=== PATIENT | male | born 1965 | race Caucasian/White ===

== ENCOUNTER 2017-02-04 08:02 | Day surgery (SDC) | payer MEDICARE, MEDICAID ==
[2017-01-22 10:50] LABS: ABSOLUTE EOSINOPHILS # (AUTO) 0.1 10^3/uL (0.0-0.6); ABSOLUTE LYMPHOCYTES (AUTO) 1.8 10^3/uL (0.5-4.7); ABSOLUTE MONOCYTES (AUTO) 0.4 10^3/uL (0.1-1.4); ABSOLUTE NEUT (AUTO) 4.6 10^3/uL (1.7-8.2); BASOPHILS % (AUTO) 0.6 % (0-2); EOSINOPHILS % (AUTO) 2.1 % (0-6); HEMATOCRIT 50.4 % (37.9-51.0); HEMOGLOBIN 16.2 g/dL (13.5-17.0); HGB HCT DIFFERENCE -1.8; LYMPHOCYTES % (AUTO) 25.9 % (13-45); MEAN CORPUSCULAR HEMOGLOBIN 32.4 pg (27.0-33.4); MEAN CORPUSCULAR HGB CONC 32.2 g/dL (32.0-36.0); MEAN CORPUSCULAR VOLUME 101 fl (80-97); MONOCYTES % (AUTO) 5.2 % (3-13); RED BLOOD COUNT 5.01 10^6/uL (4.35-5.55); SEGMENTED NEUTROPHILS % (AUTO) 66.2 % (42-78); WHITE BLOOD COUNT 6.9 10^3/uL (4.0-10.5)
[2017-01-22 10:56] LABS: PARTIAL THROMBOPLASTIN TIME 25.7 SEC (23.5-35.8); PROTHROMBIN TIME 12.1 SEC (11.4-15.4)
[2017-01-22 11:17] LABS: ANION GAP 10 (5-19); BLOOD UREA NITROGEN 19 mg/dL (7-20); CALCIUM 9.6 mg/dL (8.4-10.2); CARBON DIOXIDE 30 mmol/L (22-30); CHLORIDE 102 mmol/L (98-107); CREATININE RESULT 0.91 mg/dL (0.52-1.25); GLUCOSE 134 mg/dL (75-110); POTASSIUM 4.8 mmol/L (3.6-5.0)
--- NOTE | 2017-01-22 12:58 | EKG REPORT ---
SEVERITY:- ABNORMAL ECG - BASELINE ARTIFACTS SINUS RHYTHM RIGHT AXIS DEVIATION : Confirmed by: Guillermo Pham MD 22-Jan-2017 12:57:23
[~2017-02-04 08:02] MED LIST: DOXYCYCLINE HYCLATE 100 MG in DEXTROSE 5%-WATER 250 ML IV PRN; LIDOCAINE 0.5% INJ-PF (5 MG/ML) 50 ML SDV SUBCUT PRN; LIDOCAINE 4% INJ/PF (40 MG/ML) 5 ML AMPUL INJ PRN; RINGERS SOLUTION,LACTATED 1,000 ML IV PRN
[2017-02-04] MEDS ORDERED: LIDOCAINE 1%/EPINEPHRINE INJ 20 ML VIAL ONE (08:29)
[2017-02-04] MEDS ORDERED: SODIUM BICARBONATE 8.4% INJ 50 MEQ/50 ML DISP.SYRIN ONE (08:35)
[2017-02-04] MEDS ORDERED: FENTANYL CITRATE INJ/PF 100 MCG/2 ML AMPUL ONE ×2 (09:38)
[2017-02-04] MEDS ORDERED: ACETAMINOPHEN 100 ML IV ONE (09:39)
[2017-02-04] MEDS ORDERED: MIDAZOLAM 2 MG/2 ML INJ ONE (09:39)
[2017-02-04] MEDS ORDERED: PROPOFOL INJ 200 MG/20 ML VIAL IV ONE (09:39)
[2017-02-04] MEDS ORDERED: MORPHINE SULFATE 10 MG/ML INJ IV PRN (10:11)
[2017-02-04] MEDS ORDERED: PROMETHAZINE HCL INJ 25 MG/1 ML VIAL IV PRN ×2 (10:11)
[2017-02-04] MEDS ORDERED: OXYCODONE-ACETAMINOPHEN 5-325 MG TABLET PO PRN ×2 (10:11)
[2017-02-04] MEDS ORDERED: FENTANYL CITRATE INJ/PF 100 MCG/2 ML AMPUL IV PRN ×3 (10:11)
[2017-02-04] MEDS ORDERED: MEPERIDINE HCL/PF INJ 25 MG/1 ML DISP.SYRIN IV PRN (10:11)
[2017-02-04] MEDS ORDERED: DIPHENHYDRAMINE HCL 50 MG/ML VIAL IV PRN (10:11)
[2017-02-04] MEDS ORDERED: BACITRACIN INJ 50,000 UNIT VIAL ONE (10:56)
--- NOTE | 2017-02-04 11:54 | Operative Report ---
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 SURGEON: ASHISH AL ANESTHESIA: LMAC TISSUE REMOVED OR ALTERED: Squamous cell carcinoma COMPLICATIONS: None ESTIMATED BLOOD LOSS: Minimal PROCEDURE: Patient seen and was marked prior to being brought into the operating room. Patient was brought into the operating room and placed on the operating room table in a supine position. Patient was then prepped with a Betadine scrub and Betadine solution and draped in a sterile and aseptic manner. The area was then marked. 12 O'clock was marked towards the mouth 3 O'clock was marked towards the ear 6:00 was marked towards the posterior neck 9:00 was marked towards the inferior neck The area was then anesthetized with 1% lidocaine with epinephrine and bicarbonate for its anesthetic and hemostatic effects. The area was then excised and marked at 12:00. We had considered a primary closure but this would go against the natural relaxed skin tension lines. A primary closure would be too tight and would have increased chance of dehiscence. This will leave more of a scar so we decided to use a boomerang sliding advancement flap reconstruction which would camouflage the scar better and take tension off of the closure so that would be less chances of complications. Then went ahead and outlined the flap and anesthetized it. Then incised the flap and developed a flap maintaining the subdermal plexus. Then we undermined 360 to allow for plate like scarring and minimize trap door deformity. Throughout the case hemostasis was achieved with the bipolar. We then sutured the flap into its new position Using [ 4-0 Vicryl] for the subcutaneous and deep dermis. Skin was closed with a subcuticular stitch using 3-0 PDS with knots being tied on the outside. And 3-0 PDS suture was used for support and placed in the central area of the incision. We then applied tincture benzoin and Steri-Strips followed by a light pressure dressing. Patient was then reversed from anesthesia and taken to the [facility] for recovery. The patient tolerated well. There were no complications. Lesion size was approximately 3.5 cm x 3.25 cm please see pathology for actual size. Portions of this note may be dictated using [employer] voice recognition software. Occasional variations and spelling and vocabulary could be possible and are unintentional. Additionally, there is a chance that some errors may not be caught or corrected. Please notify the offer of any discrepancies noted or if any statements are unclear Subjective: No complaints Objective: Vital signs stable afebrile No bleeding Dressing intact Assessment and plan: Doing well. Elevate the operative site. Resume medications. Take antibiotics for 1 day Follow-up Full instructions were given to the patient and family and they understand Portions of this note may be dictated using [employer] voice recognition software. Occasional variations and spelling and vocabulary could be possible and are unintentional. Additionally, there is a chance that some errors may not be caught or corrected. Please notify the offer of any discrepancies noted or if any statements are unclear.
--- NOTE | 2017-02-04 11:57 | PDOC DISCHARGE SUMMARY ---
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 Leave the steri-strip tapes on for 5 days, then removal. Then cleaning wound with peroxide and apply Neosporin/bacitracin 3 times per day. Antibiotics for 1 day, then discontinue. Elevate operative area to decrease swelling. Do not strain, or lift heavy objects. Call for excessive bleeding, increased temperature of 101, uncontrolled pain, or excessive nausea or vomiting. You may reach Dr. Eid through his office at [phone]. In the event of an emergency after hours, then contact Dr. Eid through [facility]. Return to the office for a postop check on . The time will be scheduled by the nursing staff of [facility] prior to discharge. Please give the patient a copy of their labs and EKG so they can bring this to their PMD. Thank you Portions of this note may be dictated using [employer] voice recognition software. Occasional variations and spelling and vocabulary could be possible and are unintentional. Additionally, there is a chance that some errors may not be caught or corrected. Please notify the offer of any discrepancies noted or if any statements are unclear. Discharge Diet: As Tolerated Discharge Activity: Activity As Tolerated - Limited activities. Keep the dressing clean dry and intact.
[2017-02-04 13:26] VITALS: BP 126/73
[2017-02-04] MEDS ORDERED: DEXAMETHASONE SOD PHOSPHATE INJ 4 MG/1 ML VIAL ONE (14:40)
[2017-02-04] MEDS ORDERED: LIDOCAINE 2% INJ-PF (20 MG/ML) 10 ML AMPUL ONE (14:40)
[2017-02-04] MEDS ORDERED: ONDANSETRON HCL INJ/PF 4 MG/2 ML SDV ONE (14:40)
== END 2017-02-04 13:15 | disposition home or self-care (01) ==
LOC: OROUT 08:02
PROVIDERS: ATTEND Plastic Surgery
PROC: 0HB1XZZ Excision of Face Skin, External Approach (ICD-10-PCS; 2017-02-04)
PROC: 0HX1XZZ Transfer Face Skin, External Approach (ICD-10-PCS; principal; 2017-02-04 10:30)
DX: C44.399 Other specified malignant neoplasm of skin of other parts of face (principal); I10 Essential (primary) hypertension; E78.5 Hyperlipidemia, unspecified; E11.9 Type 2 diabetes mellitus without complications; J44.9 Chronic obstructive pulmonary disease, unspecified; F17.210 Nicotine dependence, cigarettes, uncomplicated; Z79.01 Long term (current) use of anticoagulants; Z88.0 Allergy status to penicillin; Z79.899 Other long term (current) drug therapy; Z79.4 Long term (current) use of insulin; Z79.51 Long term (current) use of inhaled steroids
CPT/HCPCS: 93005; 36415; 82962; 85025; 85610; 85730; 80048; 88305 ×2; 88331 ×2; 88332 ×2; 93010; 14040; J2250; J3490 ×5; J1100; J3010; J2405; J7060; J2704; J0131; 300

== ENCOUNTER 2017-02-09 12:03 | Emergency (ER) | payer MEDICARE, MEDICAID ==
[2017-02-09 12:20] VITALS: BP 128/87
--- NOTE | 2017-02-09 14:05 | ER Document Report ---
ED Medical Screen (RME) - General Chief Complaint: Arm Pain Stated Complaint: LEFT ARM SWELLING Time Seen by Provider: 02/09/17 14:00 Mode of Arrival: Ambulatory Information source: Patient Notes: This is a 51-year-old man with a history of skin cancer that presents to the emergency room with left upper extremity swelling. The patient states that he always sleeps on his left hand side and will frequently have left arm swelling which goes down during the day. He states that it was very swollen today so he came into the emergency room. He states that the swelling is already going down. He denies any pain. He does state that he was in the sun lately and is got some irritation to the left forearm. He recently had a skin cancer removal in the left upper neck and have stitches still in place. He is followed by Dr. Hernandez. He denies any chest pain or shortness of breath. He denies any arm pain. TRAVEL OUTSIDE OF THE [place] IN LAST 30 DAYS: No - HPI Onset: Other - This is been a recurring thing he has had in the past Onset/Duration: Gradual Quality of pain: No pain Severity: None Pain Level: Denies Associated Symptoms: None. denies: Chest pain, Shortness of breath Exacerbated by: Other - sleeping On the left side Relieved by: Standing Similar symptoms previously: Yes Recently seen / treated by doctor: Yes - Related Data Smoking: Non-smoker Frequency of alcohol use: None Drug Abuse: None Allergies/Adverse Reactions: amoxicillin [Amoxicillin] Adverse Reaction (Verified 01/16/17 13:52) Hives Iodinated Contrast- Oral and IV Dye [IV Dye, Iodine Containing] Adverse Reaction (Verified 01/16/17 13:52) Hives Penicillins Adverse Reaction (Verified 01/16/17 13:52) Hives Apricots Adverse Reaction (Mild, Uncoded 01/16/17 13:52) Hives Past Medical History - General Information source: Patient - Social History Cigarette use (# per day): No Chew tobacco use (# tins/day): No Frequency of alcohol use: None Drug Abuse: None Lives with: Family Family history: Reviewed & Not Pertinent - Past Medical History Cardiac Medical History: Reports: Hx Hypercholesterolemia, Hx Hypertension Denies: Hx Coronary Artery Disease, Hx Heart Attack Pulmonary Medical History: Reports: Hx Asthma, Hx Bronchitis, Hx COPD, Hx Pneumonia Denies: Hx Tuberculosis Neurological Medical History: Denies: Hx Cerebrovascular Accident, Hx Seizures Endocrine Medical History: Reports: Hx Diabetes Mellitus Type 2 Renal/ Medical History: Denies: Hx Peritoneal Dialysis Musculoskeltal Medical History: Denies Hx Arthritis Psychiatric Medical History: Reports: Hx Depression Past Surgical History: Reports: Hx Abdominal Surgery - hernia, Hx Cholecystectomy, Hx Orthopedic Surgery - R foot - Immunizations Hx Diphtheria, Pertussis, Tetanus Vaccination: Yes Review of Systems - Review of Systems Constitutional: denies: Chills, Fever EENT: No symptoms reported Cardiovascular: No symptoms reported. denies: Chest pain, Palpitations, Heart racing Respiratory: No symptoms reported. denies: Cough, Short of breath, Wheezing Gastrointestinal: No symptoms reported Genitourinary: No symptoms reported Male Genitourinary: No symptoms reported Musculoskeletal: See HPI Skin: See HPI Hematologic/Lymphatic: No symptoms reported Neurological/Psychological: No symptoms reported Physical Exam - Vital signs Vitals: Temp Pulse Resp BP Pulse Ox 97.9 F 91 16 128/87 H 92 02/09/17 12:19 02/09/17 12:19 02/09/17 12:19 02/09/17 12:19 02/09/17 12:19 Notes: Physical exam: GENERAL: 1-year-old man, alert and oriented 3, no acute distress HEAD: Atraumatic, normocephalic. EYES: Pupils equal round and reactive to light, extraocular movements intact, sclera anicteric, conjunctiva are normal. ENT: TMs normal, nares patent, oropharynx clear without exudates. Moist mucous membranes. NECK: Normal range of motion, supple without lymphadenopathy or JVD. LUNGS: Breath sounds clear to auscultation bilaterally and equal. No wheezes rales or rhonchi. HEART: Regular rate and rhythm without murmurs, rubs or gallops. ABDOMEN: Soft, normoactive bowel sounds. No tenderness to palpation. No guarding, no rebound. No masses appreciated. EXTREMITIES: Has good pulses in the left and right upper extremity. He has good capillary refill bilaterally. Good sensation to the upper extremities. He does have left upper extremity swelling which he says is already improving. He does have some irritation to the left forearm which appears to be from scratching. There is no evidence of cellulitis. NEUROLOGICAL: Cranial nerves II through XII grossly intact. Normal speech, normal gait. PSYCH: Normal mood, normal affect. SKIN: Warm, Dry, normal turgor, no rashes or lesions noted. Course - Vital Signs Vital signs: Temp Pulse Resp BP Pulse Ox 97.9 F 91 16 128/87 H 92 02/09/17 12:19 02/09/17 12:19 02/09/17 12:19 02/09/17 12:19 02/09/17 12:19 Doctor's Discharge - Discharge Clinical Impression: Edema left upper extremity Condition: Stable Disposition: HOME, SELF-CARE Additional Instructions: The swelling that you are experiencing in the left upper extremity is most likely due to laying on that side. Try not to lay directly on the arm because that could hinder the blood flow and worsen the swelling. Follow-up with Dr. Hernandez this week. His skin is sensitive to the sun: Consider wearing Sport Sleeves sold at [email or web address]. Cannot find the sleeves, long sleeve shirt. Return to the emergency room for worsening swelling, pain or shortness of breath
== END 2017-02-09 14:06 | disposition home or self-care (01) ==
LOC: ER 12:03
DX: R60.9 Edema, unspecified (principal); M79.602 Pain in left arm; I10 Essential (primary) hypertension; E78.00 Pure hypercholesterolemia, unspecified; E11.9 Type 2 diabetes mellitus without complications; Z98.890 Other specified postprocedural states; Z88.0 Allergy status to penicillin; Z85.828 Personal history of other malignant neoplasm of skin; Z90.49 Acquired absence of other specified parts of digestive tract
CPT/HCPCS: 99283

== ENCOUNTER 2017-06-01 16:47 | Emergency (ER) | payer MEDICARE, MEDICAID ==
[2017-06-01] MEDS ORDERED: LIDOCAINE 5% (700 MG) TRANSDERMAL ADH..PATCH TP ONE (17:40)
--- NOTE | 2017-06-01 17:40 | ER Document Report ---
HPI - HPI Pain Level: 5 Notes: Patient is a 51-year-old male with history of hypertension diabetes who presents the ED complaining of left low back pain that began this morning. Patient believes that he slept wrong and had soreness and there try to get this morning. Patient states that it has loosened up throughout the day, but he does continue to have a dull pain to the area. Patient states that the pain does not radiate. Patient is still ambulatory without any difficulties. He is still eating and drinking without difficulties. He is urinating normally and having normal bowel movements. He denies IV drug use. + smoker. He denies any injections or procedures/surgeries to his lower back. Patient states that extension makes the pain worse, but is able to sit and stand without any difficulties. Denies any headache, fever, neck pain, URI, sore throat, chest pain, palpitations, syncope, cough, shortness of breath, wheeze, dyspnea, abdominal pain, nausea/vomiting/diarrhea, urinary retention, dysuria, hematuria , loss of control of bowel or bladder, numbness/tingling, saddle anesthesia, muscle paralysis/weakness, or rash. - ROS Notes: REVIEW OF SYSTEMS: CONSTITUTIONAL : Denies fever, chills, or sweats. Denies recent illness. EENT: Denies eye, ear, throat, or mouth pain or symptoms. Denies nasal or sinus congestion or discharge. Denies throat, tongue, or mouth swelling or difficulty swallowing. CARDIOVASCULAR: Denies chest pain. Denies palpitations or racing or irregular heart beat. Denies ankle edema. RESPIRATORY: Denies cough, cold, or chest congestion. Denies shortness of breath, difficulty breathing, or wheezing. GASTROINTESTINAL: Denies abdominal pain or distention. Denies nausea, vomiting , or diarrhea. GENITOURINARY: Denies difficulty urinating, painful urination, burning, frequency, blood in urine, or discharge. MUSCULOSKELETAL: see hpi SKIN: Denies rash, lesions or sores. NEUROLOGICAL: Denies confusion or altered mental status. Denies passing out or loss of consciousness. Denies dizziness or lightheadedness. Denies headache. Denies weakness or paralysis or loss of use of either side. Denies problems with gait or speech. Denies sensory loss, numbness, or tingling. ALL OTHER SYSTEMS REVIEWED AND NEGATIVE. Dictation was performed using Dragon voice recognition software - REPRODUCTIVE Reproductive: DENIES: : - DERM Skin Color: Normal Past Medical History - Social History Smoking Status: Current Every Day Smoker Family History: None Patient has suicidal ideation: No Patient has homicidal ideation: No - Past Medical History Cardiac Medical History: Reports: Hx Hypercholesterolemia, Hx Hypertension Denies: Hx Coronary Artery Disease, Hx Heart Attack Pulmonary Medical History: Reports: Hx Asthma, Hx Bronchitis, Hx COPD, Hx Pneumonia Denies: Hx Tuberculosis Neurological Medical History: Denies: Hx Cerebrovascular Accident, Hx Seizures Endocrine Medical History: Reports: Hx Diabetes Mellitus Type 2 Renal/ Medical History: Denies: Hx Peritoneal Dialysis Musculoskeltal Medical History: Denies Hx Arthritis Psychiatric Medical History: Reports: Hx Depression Past Surgical History: Reports: Hx Abdominal Surgery - hernia, Hx Cholecystectomy, Hx Orthopedic Surgery - R foot - Immunizations Hx Diphtheria, Pertussis, Tetanus Vaccination: Yes Hx Pneumococcal Vaccination: 04/20/13 Vertical Provider Document - CONSTITUTIONAL Agree With Documented VS: Yes Notes: PHYSICAL EXAMINATION: GENERAL: Well-appearing, well-nourished and in no acute distress. LUNGS: Breath sounds clear to auscultation bilaterally and equal. No wheezes rales or rhonchi. HEART: Regular rate and rhythm without murmurs, rubs, gallops. ABDOMEN: Soft, nontender, nondistended abdomen. No guarding, no rebound. No masses appreciated. Normal bowel sounds present. No CVA tenderness bilaterally. No pulsatile mass Musculoskeletal: Ext b/l: FROM to passive/active. Strength 5+/5. No deficits noted. No bony tenderness of extremities. Back: FROM to passive/active. Strength 5+/5. No vertebral point tenderness, stepoffs, or deformities. No other bony tenderness or ecchymosis. SLR negative b/l. + mild tenderness to the left L-paraspinal mm with mild spasm. Extremities: No cyanosis, clubbing, or edema b/l. Peripheral pulses 2+. Capillary refill less than 2 seconds. NEUROLOGICAL: Normal speech, normal gait. Normal sensory, motor exams. Reflexes 2+ b/l. PSYCH: Normal mood, normal affect. SKIN: Warm, Dry, normal turgor, no rashes or lesions noted. - INFECTION CONTROL TRAVEL OUTSIDE OF THE [place] IN LAST 30 DAYS: No - RESPIRATORY O2 Sat by Pulse Oximetry: 94 Course - Re-evaluation Re-evalutation: 06/01/17 17:38 Patient is an afebrile, well-hydrated, 51-year-old male who presents the ED with acute low back strain based on H&P today. Vitals are stable. PE is otherwise unremarkable for any focal neurological deficits. No imaging warranted at this time based on H&P. Patient declined Toradol injection. I would like to shy away from any steroid injection because of his diabetes at this time. Lidoderm patch will be applied today. Low suspicion for any meningitis, fracture, expanding/ruptured AAA, cauda equina syndrome, epidural mass lesion/abscess, herniated disc causing severe spinal stenosis, or other systemic infection at this time. Patient is aware that his condition can change from initial presentation and that he needs monitor symptoms closely for any acute changes. I will send her home with a prescription for naproxen as well as baclofen and Voltaren gel. Conservative measures otherwise for symptoms. Recheck with your PCM in 3-5 days. Consider consult with orthopedics and physical therapy. Return to the ED with any worsening/ concerning symptoms otherwise as reviewed in discharge. Patient is in agreement. - Vital Signs Vital signs: Temp Pulse Resp BP Pulse Ox 98.3 F 108 H 20 123/77 94 06/01/17 16:51 06/01/17 16:51 06/01/17 16:51 06/01/17 16:51 06/01/17 16:51 Discharge - Discharge Clinical Impression: Low back strain Qualifiers: Encounter type: initial encounter Qualified Code(s): S39.012A - Strain of muscle, fascia and tendon of lower back, initial encounter Condition: Stable Disposition: HOME, SELF-CARE Instructions: Ice Packs ([facility]), Warm Packs ([facility]), Low Back Pain ([facility]), Muscle Strain ([facility]), Muscle Relaxers ([facility]), Stretching Exercises for the Back ([facility]) Additional Instructions: Rest, Ice, Compression, Elevation Use sling as directed Tylenol/ibuprofen as needed Light stretches daily Strength exercises as able Moist heat and massage may help F/u with your PCP in 3-5 days for a recheck Consider consult(s) with Orthopedics/physical therapy for ongoing/worsening symptoms Return to the ED with any worsening symptoms and/or development of fever, headache, chest pain, palpitations, syncope, shortness of breath, trouble breathing, abdominal pain, n/v/d, blood in stool/urine, loss of control of bowel /bladder, urinary retention, muscle weakness/paralysis, saddle anesthesia, numbness/tingling, or other worsening symptoms that are concerning to you. Prescriptions: Baclofen [Baclofen 10 mg Tablet] 5 mg PO BID PRN #10 tablet PRN Reason: Naproxen 500 mg PO BID PRN #30 tablet PRN Reason: Forms: Smoking Cessation Education Referrals: ARTEMIO KAMINSKI MD [Primary Care Provider] - Follow up in 3-5 days [facility] [Provider Group] - Follow up as needed
[2017-06-01 17:54] VITALS: BP 118/67
== END 2017-06-01 17:53 | disposition home or self-care (01) ==
LOC: ER 16:47
DX: S39.012A Strain of muscle, fascia and tendon of lower back, initial encounter (principal); X58.XXXA Exposure to other specified factors, initial encounter; F17.200 Nicotine dependence, unspecified, uncomplicated; I10 Essential (primary) hypertension; E11.9 Type 2 diabetes mellitus without complications; E78.00 Pure hypercholesterolemia, unspecified; Z90.49 Acquired absence of other specified parts of digestive tract
CPT/HCPCS: 99283

== ENCOUNTER → 2017-06-06 | Outpatient (CLI) | payer MEDICARE, MEDICAID ==
--- NOTE | 2017-06-06 12:04 | RADIOLOGY REPORT (SQ) ---
EXAM DESCRIPTION: CT ABD/PELVIS NO ORAL OR IV COMPLETED DATE/TIME: 06/06/2017 11:48 am REASON FOR STUDY: R10.32 LEFT LOWER QUADRANT PAIN K92.1 BLOOD IN STOOL R10.32 LEFT LOWER QUADRANT P AIN K92.1 MELENA COMPARISON: CT abdomen pelvis 03/19/2009, 03/03/2014 CT chest 02/21/2011 Abdominal ultrasound 03/19/2009 TECHNIQUE: CT scan of the abdomen and pelvis performed without intravenous or oral contrast. Images reviewed with lung, soft tissue, and bone windows. Reconstructed coronal and sagittal MPR images revi ewed. All images stored on PACS. All CT scanners at this facility use dose modulation, iterative reconstruction, and/or weight based d osing when appropriate to reduce radiation dose to as low as reasonably achievable (ALARA). [facility]: Dose Right [facility]: CareDose [facility]: Dose Right [facility]: Teradose 4D [facility]: Smart App [employer] RADIATION DOSE: Up-to-date CT equipment and radiation dose reduction techniques were employed. CTDIv ol: 22.3 mGy. DLP: 1144 mGy-cm.mGy. LIMITATIONS: No oral or IV contrast FINDINGS: LOWER CHEST: No significant findings. No nodules or infiltrates. Tiny hiatal hernia NON-CONTRASTED LIVER, SPLEEN, ADRENALS: Evaluation limited by lack of IV contrast. No identified sign ificant masses. PANCREAS: No masses. No peripancreatic inflammatory changes. GALLBLADDER: Surgically absent RIGHT KIDNEY AND URETER: No suspicious masses. Assessment limited by lack of IV contrast. No signif icant calcifications. No hydronephrosis or hydroureter. LEFT KIDNEY AND URETER: Chronic atrophy, diffusely small with cortical thinning. This is similar com pared to previous exams. No significant calcifications. No hydronephrosis or hydroureter. AORTA AND RETROPERITONEUM: No aneurysm. No retroperitoneal masses or adenopathy. BOWEL AND PERITONEAL CAVITY: No obvious masses or inflammatory changes. No free fluid. There is hiro um in the noninflamed left lower quadrant colonic diverticulum. APPENDIX: Not identified. No right lower quadrant inflammatory change PELVIS, BLADDER, AND ABDOMINAL WALL:No abnormal masses. No free fluid. Bladder normal. BONES: No significant findings. OTHER: No other significant finding. IMPRESSION: No CT evidence of diverticular abscess. Post cholecystectomy Chronic atrophy left kidney COMMENT: Quality ID # [id number]: Final reports with documentation of one or more dose reduction techniques (e.g., Automated exposure control, adjustment of the mA and/or kV according to patient size, use of iterative reconstruction technique) TECHNICAL DOCUMENTATION: JOB ID: [id number] [employer]- All Rights Reserved
== END ==
LOC: RAD 11:46
PROVIDERS: ATTEND Physician Assistant
DX: R10.32 Left lower quadrant pain (principal); K92.1 Melena
CPT/HCPCS: 74176

== ENCOUNTER → 2017-07-10 | Outpatient (CLI) | payer MEDICARE, MEDICAID ==
--- NOTE | 2017-07-10 16:19 | RADIOLOGY REPORT (SQ) ---
EXAM DESCRIPTION: CHEST PA/LATERAL COMPLETED DATE/TIME: 07/10/2017 4:10 pm REASON FOR STUDY: COUGH COMPARISON: 06/21/2016 EXAM PARAMETERS: NUMBER OF VIEWS: two views TECHNIQUE: Digital Frontal and Lateral radiographic views of the chest acquired. RADIATION DOSE: NA LIMITATIONS: none FINDINGS: LUNGS AND PLEURA: There chronic bilateral pleural and parenchymal changes. There is eleva tion of the left hemidiaphragm. No acute consolidation or failure. MEDIASTINUM AND HILAR STRUCTURES: No masses or contour abnormalities. HEART AND VASCULAR STRUCTURES: Heart normal size. No evidence for failure. BONES: No acute findings. HARDWARE: None in the chest. OTHER: No other significant finding. IMPRESSION: Chronic changes in the lung bases. No acute findings. TECHNICAL DOCUMENTATION: JOB ID: [id number] [employer]- All Rights Reserved
[2017-07-10 16:43] LABS: ABSOLUTE EOSINOPHILS # (AUTO) 0.1 10^3/uL (0.0-0.6); ABSOLUTE LYMPHOCYTES (AUTO) 1.6 10^3/uL (0.5-4.7); ABSOLUTE MONOCYTES (AUTO) 0.4 10^3/uL (0.1-1.4); ABSOLUTE NEUT (AUTO) 2.9 10^3/uL (1.7-8.2); BASOPHILS % (AUTO) 0.4 % (0-2); EOSINOPHILS % (AUTO) 2.6 % (0-6); HEMATOCRIT 45.4 % (37.9-51.0); HEMOGLOBIN 15.5 g/dL (13.5-17.0); HGB HCT DIFFERENCE 1.1; LYMPHOCYTES % (AUTO) 32.2 % (13-45); MEAN CORPUSCULAR HGB CONC 34.1 g/dL (32.0-36.0); MEAN CORPUSCULAR VOLUME 97 fl (80-97); MONOCYTES % (AUTO) 7.5 % (3-13); RED CELL DISTRIBUTION WIDTH 14.2 % (11.5-14.0); SEGMENTED NEUTROPHILS % (AUTO) 57.3 % (42-78); WHITE BLOOD COUNT 5.1 10^3/uL (4.0-10.5)
[2017-07-10 17:08] LABS: ALANINE AMINOTRANSFERASE 37 U/L (21-72); ALBUMIN 3.9 g/dL (3.5-5.0); ALKALINE PHOSPHATASE 95 U/L (38-126); ANION GAP 11 (5-19); ASPARTATE AMINO TRANSFERASE 32 U/L (17-59); BILIRUBIN,DIRECT 0.3 mg/dL (0.0-0.4); BILIRUBIN,TOTAL 0.3 mg/dL (0.2-1.3); BLOOD UREA NITROGEN 17 mg/dL (7-20); CARBON DIOXIDE 31 mmol/L (22-30); CHLORIDE 97 mmol/L (98-107); GLUCOSE 225 mg/dL (75-110); POTASSIUM 4.3 mmol/L (3.6-5.0); SODIUM 138.7 mmol/L (137-145); TOTAL PROTEIN 6.4 g/dL (6.3-8.2)
== END ==
LOC: OD 15:21
PROVIDERS: ATTEND Physician Assistant
DX: R05 Cough (principal)
CPT/HCPCS: 36415; 71020; 80053; 85025

== ENCOUNTER 2017-09-05 17:41 | Inpatient (IN) | payer MEDICARE, MEDICAID ==
--- NOTE | 2017-09-05 18:38 | RADIOLOGY REPORT (SQ) ---
EXAM DESCRIPTION: CHEST SINGLE VIEW COMPLETED DATE/TIME: 09/05/2017 6:29 pm REASON FOR STUDY: SOB COMPARISON: 07/10/2017 EXAM PARAMETERS: NUMBER OF VIEWS: One view. TECHNIQUE: Single frontal radiographic view of the chest acquired. RADIATION DOSE: NA LIMITATIONS: None. FINDINGS: LUNGS AND PLEURA: Mild chronic changes in lung bases. No acute opacities, masses or pneum othorax. No pleural effusion. MEDIASTINUM AND HILAR STRUCTURES: No masses. Contour normal. HEART AND VASCULAR STRUCTURES: Heart normal in size. Normal vasculature. BONES: No acute findings. HARDWARE: None in the chest. OTHER: No other significant finding. IMPRESSION: Mild chronic changes without evidence of acute cardiopulmonary disease. TECHNICAL DOCUMENTATION: JOB ID: [id number] [employer]- All Rights Reserved
[2017-09-05 18:56] LABS: ABSOLUTE EOSINOPHILS # (AUTO) 0.1 10^3/uL (0.0-0.6); ABSOLUTE LYMPHOCYTES (AUTO) 1.1 10^3/uL (0.5-4.7); ABSOLUTE MONOCYTES (AUTO) 0.6 10^3/uL (0.1-1.4); ABSOLUTE NEUT (AUTO) 5.2 10^3/uL (1.7-8.2); BASOPHILS % (AUTO) 0.7 % (0-2); EOSINOPHILS % (AUTO) 1.1 % (0-6); HEMATOCRIT 45.2 % (37.9-51.0); HEMOGLOBIN 15.3 g/dL (13.5-17.0); LYMPHOCYTES % (AUTO) 16.1 % (13-45); MEAN CORPUSCULAR HEMOGLOBIN 32.7 pg (27.0-33.4); MEAN CORPUSCULAR HGB CONC 33.9 g/dL (32.0-36.0); MEAN CORPUSCULAR VOLUME 97 fl (80-97); PLATELET COUNT 185 10^3/uL (150-450); RED BLOOD COUNT 4.68 10^6/uL (4.35-5.55); RED CELL DISTRIBUTION WIDTH 15.5 % (11.5-14.0); SEGMENTED NEUTROPHILS % (AUTO) 74.1 % (42-78); TOTAL CELLS COUNTED % (AUTO) 100 %; WHITE BLOOD COUNT 6.9 10^3/uL (4.0-10.5)
[2017-09-05 19:09] LABS: VENOUS BLOOD BASE EXCESS 3.2 mmol/L; VENOUS BLOOD HCO3 32.2 mmol/L (20-32); VENOUS BLOOD PH 7.3 (7.30-7.42)
[2017-09-05 19:11] LABS: VENOUS BLOOD PCO2 67.1 mmHg (35-63)
[2017-09-05 19:14] LABS: ALANINE AMINOTRANSFERASE 19 U/L (21-72); ALBUMIN 4.1 g/dL (3.5-5.0); ALKALINE PHOSPHATASE 73 U/L (38-126); ANION GAP 10 (5-19); ASPARTATE AMINO TRANSFERASE 12 U/L (17-59); BILIRUBIN,DIRECT 0.5 mg/dL (0.0-0.4); BILIRUBIN,TOTAL 0.5 mg/dL (0.2-1.3); BLOOD UREA NITROGEN 23 mg/dL (7-20); CALCIUM 9.7 mg/dL (8.4-10.2); CARBON DIOXIDE 30 mmol/L (22-30); CHLORIDE 97 mmol/L (98-107); GLUCOSE 292 mg/dL (75-110); POTASSIUM 4.6 mmol/L (3.6-5.0); SODIUM 136.8 mmol/L (137-145); TOTAL PROTEIN 6.7 g/dL (6.3-8.2)
[2017-09-05] MEDS ORDERED: METHYLPREDNISOLONE INJ 125 MG/2 ML SDV IV ONE (19:19)
[2017-09-05] MEDS ORDERED: MAGNESIUM SULFATE/D5W 1 GM/100 ML RTUPB IV PRN (19:19)
[2017-09-05] MEDS ORDERED: IPRATROPIUM/ALBUTEROL 0.5-2.5 MG/3 ML AMPUL NEB ONE ×2 (19:19)
[2017-09-05] MEDS ORDERED: LEVOFLOXACIN 750 MG/D5W RTU 750 MG/150 ML RTUPB IV ONE (19:20)
--- NOTE | 2017-09-05 19:22 | ER Document Report ---
ED Respiratory Problem - General Chief Complaint: Respiratory Distress Stated Complaint: BREATHING PROBLEMS Time Seen by Provider: 09/05/17 19:09 Notes: Patient is a 51-year-old male with a history of COPD and tobacco abuse that comes emergency department for chief complaint of worsening difficulty breathing since last night. He states that he has had a cold for "months". He uses home inhalers, he is not on home oxygen. He has been intubated before. He continues to smoke. He states he has had chills but he is not sure if he has had fever. He has had the influenza vaccine. Past medical history includes insulin-dependent diabetes and hyperlipidemia. TRAVEL OUTSIDE OF THE [place] IN LAST 30 DAYS: No - Related Data Allergies/Adverse Reactions: amoxicillin [Amoxicillin] Adverse Reaction (Verified 06/01/17 16:51) Hives Iodinated Contrast- Oral and IV Dye [IV Dye, Iodine Containing] Adverse Reaction (Verified 06/01/17 16:51) Hives Penicillins Adverse Reaction (Verified 06/01/17 16:51) Hives Apricots Adverse Reaction (Mild, Uncoded 06/01/17 16:51) Hives Past Medical History - General Information source: Patient - Social History Smoking Status: Current Every Day Smoker Chew tobacco use (# tins/day): No Smoking Education Provided: Yes - <3 min Frequency of alcohol use: None Drug Abuse: None Lives with: Alone Family History: None Patient has suicidal ideation: No Patient has homicidal ideation: No - Past Medical History Cardiac Medical History: Reports: Hx Hypercholesterolemia, Hx Hypertension Denies: Hx Coronary Artery Disease, Hx Heart Attack Pulmonary Medical History: Reports: Hx Asthma, Hx Bronchitis, Hx COPD, Hx Pneumonia Denies: Hx Tuberculosis Neurological Medical History: Denies: Hx Cerebrovascular Accident, Hx Seizures Endocrine Medical History: Reports: Hx Diabetes Mellitus Type 2 Renal/ Medical History: Denies: Hx Peritoneal Dialysis Musculoskeltal Medical History: Denies Hx Arthritis Psychiatric Medical History: Reports: Hx Depression Past Surgical History: Reports: Hx Abdominal Surgery - hernia, Hx Cholecystectomy, Hx Orthopedic Surgery - R foot - Immunizations Hx Diphtheria, Pertussis, Tetanus Vaccination: Yes Hx Pneumococcal Vaccination: 04/20/13 Review of Systems - Review of Systems Constitutional: See HPI EENT: See HPI Cardiovascular: No symptoms reported Respiratory: See HPI Gastrointestinal: No symptoms reported Genitourinary: No symptoms reported Male Genitourinary: No symptoms reported Musculoskeletal: No symptoms reported Skin: No symptoms reported Hematologic/Lymphatic: No symptoms reported Neurological/Psychological: No symptoms reported Physical Exam - Vital signs Vitals: Resp Pulse Ox 30 H 89 L 09/05/17 17:53 09/05/17 17:53 - General General appearance: Anxious In distress: Mild - HEENT Head: Normocephalic, Atraumatic Eyes: Normal Conjunctiva: Normal Extraocular movements intact: Yes Eyelashes: Normal Pupils: PERRL Mouth/Lips: Normal Mucous membranes: Normal Pharynx: Normal Neck: Normal - Respiratory Respiratory status: Respiratory distress, Labored, Tachypnea Breath sounds: Decreased air movement, Rhonchi, Wheezing - Cardiovascular Rhythm: Regular, Tachycardia Heart sounds: Normal auscultation, S1 appreciated, S2 appreciated - Abdominal Inspection: Normal Tenderness: Nontender. No: Tender - Back Back: Normal - Extremities General upper extremity: Normal inspection, Nontender, Normal strength, Normal temperature General lower extremity: Normal inspection, Nontender, Normal strength, Normal temperature. No: Edema - Neurological Neuro grossly intact: Yes Cognition: Normal Orientation: AAOx4 [place] Coma Scale Eye Opening: Spontaneous [place] Coma Scale Verbal: Oriented Joseph Coma Scale Motor: Obeys Commands Joseph Coma Scale Total: 15 Speech: Normal Motor strength normal: LUE, RUE, LLE, RLE Sensory: Normal - Skin Skin Temperature: Warm Skin Moisture: Dry Skin Color: Normal Course - Re-evaluation Re-evalutation: Patient in mild respiratory distress with tachypnea, labored breathing, decreased breath sounds, scattered rhonchi and wheezes, tachycardic, hypoxic into the 80s on 3 L nasal cannula. Immediately ordered BiPAP, duo nebs, magnesium, Solu-Medrol, will closely reassess. 09/06/17 On BiPAP and with treatments patient had significant improvement in his respiratory status, breathing is no longer labored, he reports he feels much better. Tachycardia improved, oxygenation improved. CBC unremarkable, chemistry generally unremarkable with hyperglycemia but no acidosis. Venous blood gas showing hypercapnia but no acidosis. Blood cultures pending. Patient was given a dose of Levaquin based on his presentation. Patient reassessed, oxygen saturation is downtrending. I increased to 50% FiO2 , I asked respiratory therapy to double check on the patient. Oxygen saturation began to improve, patient states he still feels much better than before, FiO2 increased to 60%. Patient now has normal oxygen saturations. Discussed with patient, discussed admission to the hospital. Patient is in agreement with this. Discussed with Dr. Diamond, on-call for patient's provider Dr. Hernandez, patient will be admitted to telemetry. - Vital Signs Vital signs: Temp Pulse Resp BP Pulse Ox 19 112/64 93 09/06/17 02:00 09/06/17 01:01 09/06/17 02:00 - Laboratory Result Diagrams: 09/05/17 18:38 09/05/17 18:38 Laboratory results interpreted by me: 09/05/17 09/05/17 09/05/17 18:38 18:38 18:38 RDW 15.5 H VBG pCO2 67.1 H* VBG HCO3 32.2 H Sodium 136.8 L Chloride 97 L BUN 23 H Glucose 292 H Direct Bilirubin 0.5 H AST 12 L ALT 19 L Critical Care Note - Critical Care Note Total time excluding time spent on procedures (mins): 40 - Respiratory distress , hypoxia Comments: Please allow 40 minutes of critical care time for evaluation and management of patient with respiratory distress, COPD exacerbation, requiring multiple re- evaluations, BiPAP, magnesium, Solu-Medrol, breathing treatments, antibiotics. Multiple re-evaluations. Review of previous records, consultation and admission to the hospital. Discharge - Discharge Clinical Impression: Respiratory distress, Hypoxia, Hypercapnia, COPD exacerbation, Tobacco abuse Condition: Stable Disposition: ADMITTED INPATIENT Admitting Provider: [facility] Admitted: Telemetry
[2017-09-05] MEDS ORDERED: LORAZEPAM INJ 2 MG/1 ML VIAL IV ONE (19:41)
[2017-09-06] MEDS ORDERED: IPRATROPIUM/ALBUTEROL 0.5-2.5 MG/3 ML AMPUL NEB PRN (00:15)
[2017-09-06] MEDS ORDERED: DEXTROSE 40% GEL 15 GM TUBE PO PRN (04:31)
[2017-09-06] MEDS ORDERED: DEXTROSE 50%-WATER SYRINGE 12.5 GM/25 ML DOSE IV PRN (04:31)
[2017-09-06] MEDS ORDERED: GLUCAGON,HUMAN RECOMB 1 MG INJ IM PRN (04:31)
[2017-09-06] MEDS ORDERED: DEXTROSE 50%-WATER SYRINGE 25 GM/50 ML DOSE IV PRN (04:31)
[2017-09-06] MEDS ORDERED: DEXTROSE 40% GEL 15 GM TUBE X 2 PO PRN (04:31)
[2017-09-06] MEDS: METHYLPREDNISOLONE INJ 40 MG/1 ML SDV IV SCH ×3 (06:50→23:54)
[2017-09-06] MEDS: INSULIN REG, HUMAN 100 UNIT/ML 3 ML VIAL (PYX) SUBCUT PRN ×3 (06:52→18:24)
[2017-09-06] MEDS: LANSOPRAZOLE 30 MG TAB.RAP.DR PO SCH (08:20)
[2017-09-06] MEDS: ENOXAPARIN SODIUM INJ 40 MG/0.4 ML DISP.SYRIN SUBCUT SCH (08:20)
--- NOTE | 2017-09-06 09:49 | EKG REPORT ---
SEVERITY:- BORDERLINE ECG - SINUS TACHYCARDIA RIGHT AXIS DEVIATION BORDERLINE T ABNORMALITIES, ANTERIOR LEADS : Confirmed by: Keaton Manning 06-Sep-2017 09:48:58
[2017-09-06] MEDS: LEVOFLOXACIN 500 MG/D5W RTU 500 MG/100 ML RTUPB IV SCH (18:24)
[2017-09-07] MEDS: INSULIN REG, HUMAN 100 UNIT/ML 3 ML VIAL (PYX) SUBCUT PRN ×5 (02:07→22:31)
[2017-09-07] MEDS: METHYLPREDNISOLONE INJ 40 MG/1 ML SDV IV SCH (06:12)
[2017-09-07] MEDS: ENOXAPARIN SODIUM INJ 40 MG/0.4 ML DISP.SYRIN SUBCUT SCH (08:07)
[2017-09-07] MEDS: LANSOPRAZOLE 30 MG TAB.RAP.DR PO SCH (08:07)
[2017-09-07] MEDS ORDERED: ALBUTEROL SULFATE HFA (90 MCG/PUFF) 8 GM MDI (1 MDI/ER DISP) IH PRN (12:35)
--- NOTE | 2017-09-07 12:44 | PDOC PROGRESS REPORT ---
Subjective Progress Note for:: 09/07/17 Subjective:: Patient is breathing better and off BiPAP support. No chest pain. Expressed wish for assistance to stop smoking if his insurance, medicaid, will cover his prescription for nicotine patch. No chest pain. No fever or chills. No nausea, vomiting, or abdominal pain. Reason For Visit: ACUTE EXACERBATION OF COPD,TOBACCO DEPENDENCY, Physical Exam Vital Signs: Temp Pulse Resp BP Pulse Ox 97.7 F 74 24 H 114/63 95 09/07/17 11:56 09/07/17 11:56 09/07/17 11:56 09/07/17 11:56 09/07/17 11:56 Intake & Output 09/06/17 09/07/17 09/08/17 06:59 06:59 06:59 Intake Total 232 Output Total 475 Balance -475 232 Weight 89.2 kg General appearance: PRESENT: mild distress - on supplemental oxygen via nasal cannula, obese Head exam: PRESENT: atraumatic, normocephalic Eye exam: PRESENT: conjunctiva pink, EOMI, PERRLA. ABSENT: scleral icterus Mouth exam: PRESENT: moist Respiratory exam: PRESENT: decreased breath sounds, rhonchi - minimal end expiratory phase. Cardiovascular exam: PRESENT: RRR. ABSENT: diastolic murmur, rubs, systolic murmur Vascular exam: PRESENT: normal capillary refill. ABSENT: pallor GI/Abdominal exam: PRESENT: normal bowel sounds, soft. ABSENT: distended, guarding, mass, organolmegaly, rebound, tenderness Extremities exam: ABSENT: pedal edema Neurological exam: PRESENT: alert, awake, oriented to person, oriented to place , oriented to time, oriented to situation, CN II-XII grossly intact. ABSENT: motor sensory deficit Psychiatric exam: PRESENT: appropriate affect, normal mood. ABSENT: homicidal ideation, suicidal ideation Skin exam: PRESENT: dry, intact, warm. ABSENT: cyanosis, rash Results Laboratory Results: I reviewed his lab results of [facility] [employer]. Impressions: Chest X-Ray 09/05/17 18:03 IMPRESSION: Mild chronic changes without evidence of acute cardiopulmonary disease. 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 (5) Hyperlipidemia associated with type 2 diabetes mellitus Is this a current diagnosis for this admission?: Yes Plan: See covering attending physician orders. - Time Time Spent with patient: 25-34 minutes Medications reviewed and adjusted accordingly: Yes Anticipated discharge: Home with Homehealth Within: Other - Inpatient Certification Based on my medical assessment, after consideration of the patient's comorbidities, presenting symptoms, or acuity I expect that the services needed warrant INPATIENT care.: Yes I certify that my determination is in accordance with my understanding of Medicare's requirements for reasonable and necessary INPATIENT services [42 CFR 412.3e].: Yes Medical Necessity: Need Close Monitoring Due to Risk of Patient Decompensation, Need For IV Fluids, Need For Continuous Telemetry Monitoring, Need for Nebulizer Therapy and Monitoring of Response, Need for IV Antibiotics, Risk of Complication if Not Cared For in Hospital Post Hospital Care: D/C Project Control Manager Documentation - Plan Summary Plan Summary: Continue current antibiotic therapy coverage. Consider tapering done on IV Solu Medrol in view of his Diabetes Mellitus and some degree of improvement
[2017-09-07] MEDS: GABAPENTIN 100 MG CAPSULE PO SCH ×2 (13:01→21:25)
[2017-09-07] MEDS: METHYLPREDNISOLONE INJ 125 MG/2 ML SDV IV SCH ×2 (13:20→21:25)
[2017-09-07] MEDS ORDERED: (PENDING PHARMACY ID) (Insulin Aspart [Novolog Flexpen] 4 UNIT) SQ SCH (14:00)
[2017-09-07] MEDS: INSULIN LISPRO 100 UNIT/ML 3 ML VIAL SUBCUT SCH (16:59)
[2017-09-07] MEDS: METFORMIN HCL 500 MG TABLET PO SCH (16:59)
[2017-09-07] MEDS: INSULIN DETEMIR 100 UNIT/ML 3 ML PEN SUBCUT SCH (17:58)
[2017-09-07] MEDS: LEVOFLOXACIN 500 MG/D5W RTU 500 MG/100 ML RTUPB IV SCH (17:58)
[2017-09-07] MEDS ORDERED: INSULIN DETEMIR 36 UNIT SQ SCH (18:00)
[2017-09-07] MEDS: ATORVASTATIN CALCIUM 20 MG TABLET PO SCH (21:25)
[2017-09-08] MEDS: GABAPENTIN 100 MG CAPSULE PO SCH ×3 (05:34→21:03)
[2017-09-08] MEDS: METHYLPREDNISOLONE INJ 125 MG/2 ML SDV IV SCH (05:34)
[2017-09-08 06:23] LABS: ABSOLUTE LYMPHOCYTES (AUTO) 0.8 10^3/uL (0.5-4.7); ABSOLUTE MONOCYTES (AUTO) 0.3 10^3/uL (0.1-1.4); ABSOLUTE NEUT (AUTO) 7.8 10^3/uL (1.7-8.2); BASOPHILS % (AUTO) 0.2 % (0-2); HEMATOCRIT 42.1 % (37.9-51.0); HEMOGLOBIN 13.9 g/dL (13.5-17.0); LYMPHOCYTES % (AUTO) 9.2 % (13-45); MEAN CORPUSCULAR HEMOGLOBIN 31.8 pg (27.0-33.4); MEAN CORPUSCULAR VOLUME 96 fl (80-97); MONOCYTES % (AUTO) 3.9 % (3-13); PLATELET COUNT 189 10^3/uL (150-450); RED BLOOD COUNT 4.38 10^6/uL (4.35-5.55); SEGMENTED NEUTROPHILS % (AUTO) 86.7 % (42-78); TOTAL CELLS COUNTED % (AUTO) 100 %
[2017-09-08 06:39] LABS: ANION GAP 8 (5-19); BLOOD UREA NITROGEN 39 mg/dL (7-20); CALCIUM 9.3 mg/dL (8.4-10.2); CARBON DIOXIDE 29 mmol/L (22-30); CHLORIDE 99 mmol/L (98-107); GLUCOSE 252 mg/dL (75-110); POTASSIUM 5.2 mmol/L (3.6-5.0); SODIUM 136.1 mmol/L (137-145)
[2017-09-08] MEDS: INSULIN LISPRO 100 UNIT/ML 3 ML VIAL SUBCUT SCH ×3 (07:51→16:35)
[2017-09-08] MEDS: ENOXAPARIN SODIUM INJ 40 MG/0.4 ML DISP.SYRIN SUBCUT SCH (07:51)
[2017-09-08] MEDS: INSULIN REG, HUMAN 100 UNIT/ML 3 ML VIAL (PYX) SUBCUT PRN ×4 (07:51→21:50)
[2017-09-08] MEDS: LANSOPRAZOLE 30 MG TAB.RAP.DR PO SCH (07:52)
[2017-09-08] MEDS: METFORMIN HCL 500 MG TABLET PO SCH ×2 (07:52→16:35)
--- NOTE | 2017-09-08 09:22 | RADIOLOGY REPORT (SQ) ---
EXAM DESCRIPTION: CHEST PA/LAT COMPLETED DATE/TIME: 09/08/2017 8:57 am REASON FOR STUDY: copd COMPARISON: 09/05/2017 EXAM PARAMETERS: NUMBER OF VIEWS: two views TECHNIQUE: Digital Frontal and Lateral radiographic views of the chest acquired. RADIATION DOSE: NA LIMITATIONS: none FINDINGS: LUNGS AND PLEURA: Mild increased interstitial densities are seen diffusely slightly more p rominent than on the prior study with some patchy confluence seen in the right base. Bands of atelec tasis or scarring are seen on the left. Differential includes pulmonary edema and pneumonia. No eff usions are identified in the cardiac silhouette is of normal size making pneumonia more likely. MEDIASTINUM AND HILAR STRUCTURES: No masses or contour abnormalities. HEART AND VASCULAR STRUCTURES: Cardiac silhouette and vasculature are within normal limits. BONES: No acute findings. HARDWARE: None in the chest. OTHER: No other significant finding. IMPRESSION: Interval worsening in the appearance of the lungs particularly in the right base suggest ing pneumonia or less likely pulmonary edema. TECHNICAL DOCUMENTATION: JOB ID: [id number] [employer]- All Rights Reserved
[2017-09-08] MEDS: PREDNISONE 20 MG TABLET PO SCH ×2 (09:50→17:33)
[2017-09-08] MEDS: TAMSULOSIN HCL 0.4 MG CAP.SR.24H PO SCH (09:51)
[2017-09-08] MEDS: INSULIN DETEMIR 100 UNIT/ML 3 ML PEN SUBCUT SCH ×2 (09:51→17:32)
[2017-09-08] MEDS: SERTRALINE HCL 50 MG TABLET PO SCH (09:51)
[2017-09-08] MEDS: ALBUTEROL SULFATE HFA (90 MCG/PUFF) 200 PUFF/8.5 GM MDI IH PRN (10:47)
--- NOTE | 2017-09-08 12:41 | PDOC PROGRESS REPORT ---
Subjective Progress Note for:: 09/08/17 Subjective:: Patient was admitting the hospital for COPD and shortness of the breath Patient is feeling much better currently denied any chest pain denied any shortness of the breath Patient's denied any fever Reason For Visit: ACUTE EXACERBATION OF COPD,TOBACCO DEPENDENCY, Physical Exam Vital Signs: Temp Pulse Resp BP Pulse Ox 97.9 F 71 22 H 118/57 L 95 09/08/17 12:07 09/08/17 12:07 09/08/17 12:07 09/08/17 12:07 09/08/17 12:07 Intake & Output 09/07/17 09/08/17 09/09/17 06:59 06:59 06:59 Intake Total 232 2794 Output Total 0 Balance 232 2794 Weight 89.2 kg 89.2 kg 90.2 kg General appearance: PRESENT: no acute distress, well-developed, well-nourished Head exam: PRESENT: atraumatic, normocephalic Eye exam: PRESENT: conjunctiva pink, EOMI, PERRLA. ABSENT: scleral icterus Ear exam: PRESENT: normal external ear exam Mouth exam: PRESENT: moist, tongue midline Neck exam: PRESENT: full ROM. ABSENT: carotid bruit, JVD, lymphadenopathy, thyromegaly Respiratory exam: PRESENT: clear to auscultation allyson Cardiovascular exam: PRESENT: RRR. ABSENT: diastolic murmur, rubs, systolic murmur Pulses: PRESENT: normal dorsalis pedis pul, +2 pedal pulses bilateral Vascular exam: PRESENT: normal capillary refill GI/Abdominal exam: PRESENT: normal bowel sounds, soft. ABSENT: distended, guarding, mass, organolmegaly, rebound, tenderness Rectal exam: PRESENT: deferred Extremities exam: ABSENT: full ROM, left AKA, right AKA, left BKA, right BKA, calf tenderness, joint swelling, pedal edema, tenderness, other Musculoskeletal exam: PRESENT: ambulatory Neurological exam: PRESENT: alert, awake, oriented to person, oriented to place , oriented to time, oriented to situation, CN II-XII grossly intact. ABSENT: motor sensory deficit Psychiatric exam: PRESENT: appropriate affect, normal mood. ABSENT: homicidal ideation, suicidal ideation Skin exam: PRESENT: dry, intact, warm. ABSENT: cyanosis, rash Results Laboratory Results: 09/08/17 05:08 09/08/17 05:08 09/08/17 09/08/17 05:08 05:08 WBC 9.0 RBC 4.38 Hgb 13.9 Hct 42.1 MCV 96 MCH 31.8 MCHC 33.0 RDW 15.0 H Plt Count 189 Seg Neutrophils % 86.7 H Lymphocytes % 9.2 L Monocytes % 3.9 Eosinophils % 0.0 Basophils % 0.2 Absolute Neutrophils 7.8 Absolute Lymphocytes 0.8 Absolute Monocytes 0.3 Absolute Eosinophils 0.0 Absolute Basophils 0.0 Sodium 136.1 L Potassium 5.2 H Chloride 99 Carbon Dioxide 29 Anion Gap 8 BUN 39 H Creatinine 1.00 Est GFR ( Amer) > 60 Est GFR (Non-Af Amer) > 60 Glucose 252 H Calcium 9.3 Impressions: Chest X-Ray 09/08/17 00:00 IMPRESSION: Interval worsening in the appearance of the lungs particularly in the right base suggesting pneumonia or less likely pulmonary edema. Assessment & Plan - Diagnosis (1) Pneumonia Qualifiers: Pneumonia type: due to unspecified organism Is this a current diagnosis for this admission?: Yes Plan: Continues to IV Levaquin (2) COPD exacerbation Is this a current diagnosis for this admission?: Yes Plan: Currently better will DC the IV Solu-Medrol and start him on p.o. 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
[2017-09-08] MEDS: LEVOFLOXACIN 500 MG/D5W RTU 500 MG/100 ML RTUPB IV SCH (17:33)
[2017-09-08] MEDS: ATORVASTATIN CALCIUM 20 MG TABLET PO SCH (21:03)
[2017-09-09 05:14] LABS: HEMATOCRIT 42.9 % (37.9-51.0); HEMOGLOBIN 14.5 g/dL (13.5-17.0); MEAN CORPUSCULAR HGB CONC 33.9 g/dL (32.0-36.0); MEAN CORPUSCULAR VOLUME 94 fl (80-97); PLATELET COUNT 173 10^3/uL (150-450); RED BLOOD COUNT 4.55 10^6/uL (4.35-5.55); RED CELL DISTRIBUTION WIDTH 14.8 % (11.5-14.0)
[2017-09-09] MEDS: GABAPENTIN 100 MG CAPSULE PO SCH ×3 (05:24→21:12)
[2017-09-09 05:49] LABS: ABSOLUTE LYMPHOCYTES# (MANUAL) 0.9 10^3/uL (0.5-4.7); ABSOLUTE MONOCYTES # (MANUAL) 0.4 10^3/uL (0.1-1.4); ABSOLUTE NEUTROPHILS# (MANUAL) 6.7 10^3/uL (1.7-8.2); BASOPHILS % (MANUAL) 0 % (0-2); EOSINOPHILS % (MANUAL) 0 % (0-6); LYMPHOCYTES % (MANUAL) 11 % (13-45); MONOCYTES % (MANUAL) 5 % (3-13); SEGMENTED NEUTROPHILS % (MAN) 84 % (42-78); TOTAL CELLS COUNTED 100
[2017-09-09 05:53] LABS: ANISOCYTOSIS SLIGHT; BURR CELLS SLIGHT; POIKILOCYTOSIS SLIGHT; POLYCHROMASIA SLIGHT
[2017-09-09 05:54] LABS: PLATELET COMMENT ADEQUATE
[2017-09-09 06:47] LABS: ANION GAP 7 (5-19); BLOOD UREA NITROGEN 37 mg/dL (7-20); CALCIUM 9.4 mg/dL (8.4-10.2); CARBON DIOXIDE 30 mmol/L (22-30); CHLORIDE 97 mmol/L (98-107); GLUCOSE 209 mg/dL (75-110); POTASSIUM 5.4 mmol/L (3.6-5.0); SODIUM 134.3 mmol/L (137-145)
[2017-09-09] MEDS: ENOXAPARIN SODIUM INJ 40 MG/0.4 ML DISP.SYRIN SUBCUT SCH (07:39)
[2017-09-09] MEDS: METFORMIN HCL 500 MG TABLET PO SCH ×2 (07:39→17:42)
[2017-09-09] MEDS: INSULIN REG, HUMAN 100 UNIT/ML 3 ML VIAL (PYX) SUBCUT PRN ×4 (07:39→22:55)
[2017-09-09] MEDS: INSULIN LISPRO 100 UNIT/ML 3 ML VIAL SUBCUT SCH ×3 (07:39→17:43)
[2017-09-09] MEDS: LANSOPRAZOLE 30 MG TAB.RAP.DR PO SCH (07:39)
[2017-09-09] MEDS ORDERED: SODIUM POLYSTYRENE SULFONATE 15 GM/60 ML PO ONE (09:00)
--- NOTE | 2017-09-09 09:16 | PDOC PROGRESS REPORT ---
Subjective Progress Note for:: 09/09/17 Subjective:: Patient is currently doing fair patient's denied any chest pain denied any shortness of the breath Patient was walking the hallway without any problems Reason For Visit: ACUTE EXACERBATION OF COPD,TOBACCO DEPENDENCY, Physical Exam Vital Signs: Temp Pulse Resp BP Pulse Ox 98.5 F 64 22 H 108/66 96 09/09/17 07:43 09/09/17 07:43 09/09/17 07:43 09/09/17 07:43 09/09/17 07:43 Intake & Output 09/08/17 09/09/17 09/10/17 06:59 06:59 06:59 Intake Total 2794 1869 Output Total 0 Balance 2794 1869 Weight 89.2 kg 92.1 kg General appearance: PRESENT: no acute distress, well-developed, well-nourished Head exam: PRESENT: atraumatic, normocephalic Eye exam: PRESENT: conjunctiva pink, EOMI, PERRLA. ABSENT: scleral icterus Ear exam: PRESENT: normal external ear exam Mouth exam: PRESENT: moist, tongue midline Neck exam: PRESENT: full ROM. ABSENT: carotid bruit, JVD, lymphadenopathy, thyromegaly Respiratory exam: PRESENT: clear to auscultation allyson Cardiovascular exam: PRESENT: RRR. ABSENT: diastolic murmur, rubs, systolic murmur Pulses: PRESENT: normal dorsalis pedis pul, +2 pedal pulses bilateral Vascular exam: PRESENT: normal capillary refill GI/Abdominal exam: PRESENT: normal bowel sounds, soft. ABSENT: distended, guarding, mass, organolmegaly, rebound, tenderness Rectal exam: PRESENT: deferred Extremities exam: ABSENT: full ROM, left AKA, right AKA, left BKA, right BKA, calf tenderness, joint swelling, pedal edema, tenderness, other Musculoskeletal exam: PRESENT: ambulatory Neurological exam: PRESENT: alert, awake, oriented to person, oriented to place , oriented to time, oriented to situation, CN II-XII grossly intact. ABSENT: motor sensory deficit Psychiatric exam: PRESENT: appropriate affect, normal mood. ABSENT: homicidal ideation, suicidal ideation Skin exam: PRESENT: dry, intact, warm. ABSENT: cyanosis, rash Results Laboratory Results: 09/09/17 04:29 09/09/17 05:58 02/09/09/17 09/09/17 04:29 04:29 05:58 WBC 8.0 RBC 4.55 Hgb 14.5 Hct 42.9 MCV 94 MCH 32.0 MCHC 33.9 RDW 14.8 H Plt Count 173 Seg Neutrophils % Not Reportable Lymphocytes % Not Reportable Monocytes % Not Reportable Eosinophils % Not Reportable Basophils % Not Reportable Absolute Neutrophils Not Reportable Absolute Lymphocytes Not Reportable Absolute Monocytes Not Reportable Absolute Eosinophils Not Reportable Absolute Basophils Not Reportable Sodium Cancelled 134.3 L Potassium Cancelled 5.4 H Chloride Cancelled 97 L Carbon Dioxide Cancelled 30 Anion Gap Cancelled 7 BUN Cancelled 37 H Creatinine Cancelled 0.86 Est GFR ( Amer) Cancelled > 60 Est GFR (Non-Af Amer) Cancelled > 60 Glucose Cancelled 209 H Calcium Cancelled 9.4 Impressions: Chest X-Ray 09/08/17 00:00 IMPRESSION: Interval worsening in the appearance of the lungs particularly in the right base suggesting pneumonia or less likely pulmonary edema. Assessment & Plan - Diagnosis (1) Pneumonia Qualifiers: Pneumonia type: due to unspecified organism Is this a current diagnosis for this admission?: Yes Plan: Continues to IV Levaquin (2) COPD exacerbation Is this a current diagnosis for this admission?: Yes Plan: Reduce the steroid (3) Tobacco abuse Is this a current diagnosis for this admission?: Yes Plan: Discussed with her about the smoking cessation (4) Type 2 diabetes mellitus Qualifiers: Diabetes mellitus complication status: with unspecified complications Diabetes mellitus senior living insulin use: without medical terminologist use Qualified Code( s): E11.8 - Type 2 diabetes mellitus with unspecified complications Is this a current diagnosis for this admission?: Yes Plan: stable (5) Hyperkalemia Is this a current diagnosis for this admission?: Yes Plan: Low potassium diet given Kayexalate - Time Time Spent with patient: 15-24 minutes Medications reviewed and adjusted accordingly: Yes Anticipated discharge: Home Within: within 24 hours - Inpatient Certification Medical Necessity: Need Close Monitoring Due to Risk of Patient Decompensation, Need for IV Antibiotics 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
[2017-09-09] MEDS: INSULIN DETEMIR 100 UNIT/ML 3 ML PEN SUBCUT SCH ×2 (09:33→17:45)
[2017-09-09] MEDS: PREDNISONE 20 MG TABLET PO SCH (09:34)
[2017-09-09] MEDS: SERTRALINE HCL 50 MG TABLET PO SCH (09:34)
[2017-09-09] MEDS: TAMSULOSIN HCL 0.4 MG CAP.SR.24H PO SCH (09:34)
[2017-09-09] MEDS: LEVOFLOXACIN 500 MG TABLET PO SCH (17:42)
[2017-09-09] MEDS: ATORVASTATIN CALCIUM 20 MG TABLET PO SCH (21:12)
[2017-09-10] MEDS: GABAPENTIN 100 MG CAPSULE PO SCH ×2 (05:06→13:58)
[2017-09-10 06:52] LABS: ANION GAP 7 (5-19); BLOOD UREA NITROGEN 41 mg/dL (7-20); CALCIUM 9.3 mg/dL (8.4-10.2); CARBON DIOXIDE 31 mmol/L (22-30); CHLORIDE 98 mmol/L (98-107); GLUCOSE 118 mg/dL (75-110); POTASSIUM 4.7 mmol/L (3.6-5.0); SODIUM 136.4 mmol/L (137-145)
[2017-09-10 07:17] LABS: ABSOLUTE LYMPHOCYTES (AUTO) 1.2 10^3/uL (0.5-4.7); ABSOLUTE MONOCYTES (AUTO) 0.6 10^3/uL (0.1-1.4); ABSOLUTE NEUT (AUTO) 5.8 10^3/uL (1.7-8.2); BASOPHILS % (AUTO) 0.3 % (0-2); EOSINOPHILS % (AUTO) 0.1 % (0-6); HEMATOCRIT 42.9 % (37.9-51.0); HEMOGLOBIN 14.7 g/dL (13.5-17.0); LYMPHOCYTES % (AUTO) 15.4 % (13-45); MEAN CORPUSCULAR HEMOGLOBIN 32.2 pg (27.0-33.4); MEAN CORPUSCULAR HGB CONC 34.2 g/dL (32.0-36.0); MEAN CORPUSCULAR VOLUME 94 fl (80-97); MONOCYTES % (AUTO) 8.2 % (3-13); PLATELET COUNT 183 10^3/uL (150-450); RED BLOOD COUNT 4.56 10^6/uL (4.35-5.55); RED CELL DISTRIBUTION WIDTH 14.9 % (11.5-14.0); TOTAL CELLS COUNTED % (AUTO) 100 %; WHITE BLOOD COUNT 7.6 10^3/uL (4.0-10.5)
[2017-09-10] MEDS: INSULIN LISPRO 100 UNIT/ML 3 ML VIAL SUBCUT SCH ×2 (08:33→12:22)
[2017-09-10] MEDS: ENOXAPARIN SODIUM INJ 40 MG/0.4 ML DISP.SYRIN SUBCUT SCH (08:33)
[2017-09-10] MEDS: LANSOPRAZOLE 30 MG TAB.RAP.DR PO SCH (08:34)
[2017-09-10] MEDS: METFORMIN HCL 500 MG TABLET PO SCH ×2 (08:34→16:50)
--- NOTE | 2017-09-10 10:40 | RADIOLOGY REPORT (SQ) ---
EXAM DESCRIPTION: CHEST PA/LAT COMPLETED DATE/TIME: 09/10/2017 10:05 am REASON FOR STUDY: pnemonia COMPARISON: CT chest 02/21/2011 Two-view chest 06/21/2016, 07/10/2017, 09/05/2017, 09/08/2017 EXAM PARAMETERS: NUMBER OF VIEWS: two views TECHNIQUE: Digital Frontal and Lateral radiographic views of the chest acquired. RADIATION DOSE: NA LIMITATIONS: none FINDINGS: LUNGS AND PLEURA: Chronic bandlike scarring or atelectasis in the lingula and along the le ft lateral costophrenic sulcus. No acute infiltrates. No pleural effusion. No pneumothorax. MEDIASTINUM AND HILAR STRUCTURES: No masses or contour abnormalities. HEART AND VASCULAR STRUCTURES: Heart normal size. No evidence for failure. BONES: No acute findings. HARDWARE: Clips right upper quadrant post cholecystectomy OTHER: No other significant finding. IMPRESSION: No acute findings TECHNICAL DOCUMENTATION: JOB ID: [id number] [employer]- All Rights Reserved
[2017-09-10] MEDS: TAMSULOSIN HCL 0.4 MG CAP.SR.24H PO SCH (10:51)
[2017-09-10] MEDS: SERTRALINE HCL 50 MG TABLET PO SCH (10:51)
[2017-09-10] MEDS: ALBUTEROL SULFATE HFA (90 MCG/PUFF) 200 PUFF/8.5 GM MDI IH PRN (10:51)
[2017-09-10] MEDS: INSULIN DETEMIR 100 UNIT/ML 3 ML PEN SUBCUT SCH (10:51)
[2017-09-10] MEDS: PREDNISONE 20 MG TABLET PO SCH (10:52)
--- NOTE | 2017-09-10 16:28 | PDOC DISCHARGE SUMMARY ---
General - Admit/Disc Date/PCP Admission Date/Primary Care Provider: 09/05/17 20:31 ARTEMIO KAMINSKI MD Discharge Date: 09/10/17 - Discharge Diagnosis (1) Pneumonia Is this a current diagnosis for this admission?: Yes Summary: Chest x-ray is all clear continues to Levaquin (2) COPD exacerbation Is this a current diagnosis for this admission?: Yes Summary: Currently all resolving (3) Tobacco abuse Is this a current diagnosis for this admission?: Yes Summary: Patients will try to do not smoke again according to the patient's will reinforce again in the office (4) Type 2 diabetes mellitus Is this a current diagnosis for this admission?: Yes Summary: Continues to current medications (5) Hyperkalemia Is this a current diagnosis for this admission?: Yes Summary: resolved - Additional Information Discharge Diet: Diabetic Discharge Activity: Activity As Tolerated Prescriptions: Levofloxacin [Levaquin 500 mg Tablet] 500 mg PO QPM #7 tablet Prednisone [Deltasone 20 mg Tablet] 20 mg PO DAILY #6 tablet Home Medications: Albuterol Sulfate [Proair HFA] 2 puff IH Q4HP PRN 09/06/17 Atorvastatin Calcium [Lipitor 20 mg Tablet] 20 mg PO QHS 09/06/17 Gabapentin [Neurontin 100 mg Capsule] 100 mg PO Q8 09/06/17 Insulin Aspart [Novolog Flexpen] 4 unit SQ TID 09/06/17 Insulin Detemir [Levemir] 36 unit SQ BID 09/06/17 Ipratropium/Albuterol Sulfate [Combivent Respimat Inhal [place]] 1 puff IH QID Metformin HCl [Glucophage] 1,000 mg PO BIDACBS 09/06/17 Sertraline HCl [Zoloft 50 mg Tablet] 50 mg PO DAILY 09/06/17 Tamsulosin HCl [Flomax 0.4 mg Cap.sr] 0.4 mg PO DAILY 09/06/17 Levofloxacin [Levaquin 500 mg Tablet] 500 mg PO QPM #7 tablet 09/10/17 Prednisone [Deltasone 20 mg Tablet] 20 mg PO DAILY #6 tablet 09/10/17 History of Present Illness History of Present Illness: ADÁN CHEUNG is a 51 year old male Is a 51-year-old male with a chronic smoker with a COPD came to the emergency department with the shortness of the breath and admitting for the respiratory distress COPD and a pneumonia Hospital Course Hospital Course: 71-year-old male's with a chronic smoker COPD and noncomplianceCame to the intensive department with a complaint of shortness of the breath and the diagnosed with a COPD with acute exacerbations and the pneumonia Is and was put on IV steroid and IV antibiotics and the nebulizer treatment and the response very well and switch to the p.o. antibiotic and p.o. steroid Patients off the oxygen's and a walker in the hallway with oxygens about 90 and patient expressed to go home Patient's last 48 hours on the p.o. medications and remain afebrile chest x-ray is all clear Discussed with the patient about do not smoke patient understand very well patient is very noncompliance with the medications Patient's discharge home with home health and following office in 1 week Physical Exam Vital Signs: Temp Pulse Resp BP Pulse Ox 97.4 F 104 H 20 117/67 94 09/10/17 11:01 09/10/17 14:00 09/10/17 11:01 09/10/17 11:01 09/10/17 11:01 Intake & Output 09/09/17 09/10/17 09/11/17 06:59 06:59 06:59 Intake Total 1869 1449 593 Output Total 0 Balance 1869 1449 593 Weight 92.1 kg 91.9 kg General appearance: PRESENT: no acute distress, well-developed, well-nourished Head exam: PRESENT: atraumatic, normocephalic Eye exam: PRESENT: conjunctiva pink, EOMI, PERRLA. ABSENT: scleral icterus Ear exam: PRESENT: normal external ear exam Mouth exam: PRESENT: moist, tongue midline Neck exam: PRESENT: full ROM. ABSENT: carotid bruit, JVD, lymphadenopathy, thyromegaly Respiratory exam: PRESENT: clear to auscultation [place] Cardiovascular exam: PRESENT: RRR. ABSENT: diastolic murmur, rubs, systolic murmur Pulses: PRESENT: normal dorsalis pedis pul, +2 pedal pulses bilateral Vascular exam: PRESENT: normal capillary refill GI/Abdominal exam: PRESENT: normal bowel sounds, soft. ABSENT: distended, guarding, mass, organolmegaly, rebound, tenderness Rectal exam: PRESENT: deferred Musculoskeletal exam: PRESENT: ambulatory Neurological exam: PRESENT: alert, awake, oriented to person, oriented to place , oriented to time, oriented to situation, CN II-XII grossly intact. ABSENT: motor sensory deficit Psychiatric exam: PRESENT: appropriate affect, normal mood. ABSENT: homicidal ideation, suicidal ideation Skin exam: PRESENT: dry, intact, warm. ABSENT: cyanosis, rash Results Laboratory Results: 09/10/17 04:54 09/10/17 04:54 09/10/17 09/10/17 04:54 04:54 WBC 7.6 RBC 4.56 Hgb 14.7 Hct 42.9 MCV 94 MCH 32.2 MCHC 34.2 RDW 14.9 H Plt Count 183 Seg Neutrophils % 76.0 Lymphocytes % 15.4 Monocytes % 8.2 Eosinophils % 0.1 Basophils % 0.3 Absolute Neutrophils 5.8 Absolute Lymphocytes 1.2 Absolute Monocytes 0.6 Absolute Eosinophils 0.0 Absolute Basophils 0.0 Sodium 136.4 L Potassium 4.7 Chloride 98 Carbon Dioxide 31 H Anion Gap 7 BUN 41 H Creatinine 0.97 Est GFR ( Amer) > 60 Est GFR (Non-Af Amer) > 60 Glucose 118 H Calcium 9.3 Impressions: Chest X-Ray 09/10/17 00:00 IMPRESSION: No acute findings Qualifiers - * PATEINT BEING DISCHARGED WITH ANY OF THE FOLLOWING DIAGNOSIS?: No Plan Time Spent: Greater than 30 Minutes - Discussed with the patient about all the test reports and discussed with the patient about smoking and following a one- week
[2017-09-10] MEDS: LEVOFLOXACIN 500 MG TABLET PO SCH (17:26)
[2017-09-10 17:33] VITALS: BP 112/67
== END 2017-09-10 17:35 | disposition home health service (06) | DRG 190 ==
LOC: ER 17:41 → EH 20:31 → 3W 09-06 20:49
PROVIDERS: ADMIT Family Medicine; ATTEND Internal Medicine Geriatric Medicine
PROC: 5A09557 Assistance with Respiratory Ventilation, Greater than 96 Consecutive Hours, Continuous Positive Airway Pressure (ICD-10-PCS; principal; 2017-09-05)
DX: J44.1 Chronic obstructive pulmonary disease with (acute) exacerbation (principal); J18.9 Pneumonia, unspecified organism; E11.9 Type 2 diabetes mellitus without complications; F17.200 Nicotine dependence, unspecified, uncomplicated; M19.90 Unspecified osteoarthritis, unspecified site; J44.0 Chronic obstructive pulmonary disease with (acute) lower respiratory infection; E87.5 Hyperkalemia; N40.1 Benign prostatic hyperplasia with lower urinary tract symptoms; E78.5 Hyperlipidemia, unspecified; Z91.19 Patient's noncompliance with other medical treatment and regimen; Z88.0 Allergy status to penicillin; Z91.018 Allergy to other foods; Z91.041 Radiographic dye allergy status; Z90.49 Acquired absence of other specified parts of digestive tract
CPT/HCPCS: 36415; 71045; 71046; 80048; 80053; 82803; 82962; 83036; 83605; 84484; 85025; 87040; 93005; 93010; 94640; 94660; 96365; 96375; 99291; J1650; J1815; J1956; J2060; J2920; J2930; J3475; J3490; J7512; J7620

== ENCOUNTER 2018-01-23 17:59 | Emergency (ER) | payer MEDICARE, MEDICAID ==
--- NOTE | 2018-01-23 18:17 | ER Document Report ---
ED Medical Screen (RME) - General Chief Complaint: Asthma Exacerbation Stated Complaint: EYE PAIN Time Seen by Provider: 01/23/18 18:13 Notes: RAPID MEDICAL EVALUATION DISCLOSURE I have seen this patient as part of a Rapid Medical Evaluation and, if applicable, placed any initially appropriate orders. The patient will be seen and fully evaluated, including a full history and physical exam, by a provider ( in Main ED or Fast Track) when a room becomes available. 52-year-old male PMH COPD here with complaints of left eye irritation and green drainage ongoing for the past 4 days. He has not tried anything for the symptoms. He denies any shortness of breath chest pain arm/leg pain/swelling cough. He does smoke cigarettes. He reports that his normal oxygen saturation levels are around 96%. He does not wear oxygen at home. He does not know why his oxygen level today would be in the mid to high 80s and why his heart rate would be in the low 100s. EXAM Left conjunctival injection with green purulence CTAB Mildly tachycardic NOTE SpO2 87% HR 108 TRAVEL OUTSIDE OF THE [place] IN LAST 30 DAYS: No - Related Data Allergies/Adverse Reactions: amoxicillin [Amoxicillin] Adverse Reaction (Verified 06/01/17 16:51) Hives Iodinated Contrast- Oral and IV Dye [IV Dye, Iodine Containing] Adverse Reaction (Verified 06/01/17 16:51) Hives Penicillins Adverse Reaction (Verified 06/01/17 16:51) Hives Apricots Adverse Reaction (Mild, Uncoded 06/01/17 16:51) Hives Past Medical History - Social History Chew tobacco use (# tins/day): No Frequency of alcohol use: None Drug Abuse: None Family history: Reviewed & Not Pertinent - Past Medical History Cardiac Medical History: Reports: Hx Hypercholesterolemia, Hx Hypertension Denies: Hx Coronary Artery Disease, Hx Heart Attack Pulmonary Medical History: Reports: Hx Asthma, Hx Bronchitis, Hx COPD, Hx Pneumonia Denies: Hx Tuberculosis Neurological Medical History: Denies: Hx Cerebrovascular Accident, Hx Seizures Endocrine Medical History: Reports: Hx Diabetes Mellitus Type 2 Renal/ Medical History: Denies: Hx Peritoneal Dialysis Musculoskeltal Medical History: Denies Hx Arthritis Psychiatric Medical History: Reports: Hx Depression Past Surgical History: Reports: Hx Abdominal Surgery - hernia, Hx Cholecystectomy, Hx Orthopedic Surgery - R foot - Immunizations Hx Diphtheria, Pertussis, Tetanus Vaccination: Yes History of Influenza Vaccine for 04/2017 - 09/2017 Season: Yes Physical Exam - Vital signs Vitals: Pulse Ox 87 L 01/23/18 18:10 Course - Vital Signs Vital signs: Temp Pulse Resp BP Pulse Ox 87 L 01/23/18 18:10 Doctor's Discharge - Discharge Referrals: ARTEMIO KAMINSKI MD [Primary Care Provider] - Follow up as needed
[2018-01-23 18:40] LABS: ABSOLUTE BASOPHILS # (AUTO) 0.1 10^3/uL (0.0-0.2); ABSOLUTE EOSINOPHILS # (AUTO) 0.2 10^3/uL (0.0-0.6); ABSOLUTE LYMPHOCYTES (AUTO) 1.8 10^3/uL (0.5-4.7); ABSOLUTE MONOCYTES (AUTO) 0.4 10^3/uL (0.1-1.4); ABSOLUTE NEUT (AUTO) 4.2 10^3/uL (1.7-8.2); BASOPHILS % (AUTO) 0.8 % (0-2); EOSINOPHILS % (AUTO) 2.9 % (0-6); HEMATOCRIT 43.8 % (37.9-51.0); HEMOGLOBIN 14.8 g/dL (13.5-17.0); LYMPHOCYTES % (AUTO) 26.7 % (13-45); MEAN CORPUSCULAR HEMOGLOBIN 32.7 pg (27.0-33.4); MEAN CORPUSCULAR HGB CONC 33.8 g/dL (32.0-36.0); MEAN CORPUSCULAR VOLUME 97 fl (80-97); MONOCYTES % (AUTO) 5.8 % (3-13); PLATELET COUNT 158 10^3/uL (150-450); RED BLOOD COUNT 4.53 10^6/uL (4.35-5.55); RED CELL DISTRIBUTION WIDTH 15.1 % (11.5-14.0); SEGMENTED NEUTROPHILS % (AUTO) 63.8 % (42-78); TOTAL CELLS COUNTED % (AUTO) 100 %; WHITE BLOOD COUNT 6.6 10^3/uL (4.0-10.5)
[2018-01-23 18:56] LABS: ANION GAP 11 (5-19); BLOOD UREA NITROGEN 14 mg/dL (7-20); CALCIUM 9.1 mg/dL (8.4-10.2); CARBON DIOXIDE 28 mmol/L (22-30); CHLORIDE 104 mmol/L (98-107); GLUCOSE 274 mg/dL (75-110); POTASSIUM 4.2 mmol/L (3.6-5.0); SODIUM 142.5 mmol/L (137-145)
[2018-01-23 19:09] LABS: NT PRO BNP 132 pg/mL (5-900); TROPONIN I < 0.012 ng/mL
--- NOTE | 2018-01-23 19:10 | RADIOLOGY REPORT (SQ) ---
EXAM DESCRIPTION: CHEST 2 VIEWS COMPLETED DATE/TIME: 01/23/2018 6:55 pm REASON FOR STUDY: hypoxia; eval pneumonia edema ptx COMPARISON: 09/10/2017 EXAM PARAMETERS: NUMBER OF VIEWS: two views TECHNIQUE: Digital Frontal and Lateral radiographic views of the chest acquired. RADIATION DOSE: NA LIMITATIONS: none FINDINGS: LUNGS AND PLEURA: Faintly defined opacification in the right base. MEDIASTINUM AND HILAR STRUCTURES: No masses or contour abnormalities. HEART AND VASCULAR STRUCTURES: Heart normal size. No evidence for failure. BONES: No acute findings. HARDWARE: None in the chest. OTHER: No other significant finding. IMPRESSION: Cannot exclude a minimal right middle lobe pneumonia. TECHNICAL DOCUMENTATION: JOB ID: [id number] [employer]- All Rights Reserved Reading location - IP/workstation name: [email or web address]
[2018-01-23] MEDS ORDERED: CIPROFLOXACIN HCL 0.3% OPH SOLN 2.5 ML OS ONE (19:15)
--- NOTE | 2018-01-23 19:15 | ER Document Report ---
ED General - General Chief Complaint: Asthma Exacerbation Stated Complaint: EYE PAIN Time Seen by Provider: 01/23/18 18:13 Mode of Arrival: Ambulatory Information source: Patient Notes: 52-year-old male history of COPD presents with 4 day duration of drainage from the left eye. Patient denies any respiratory issues denies a cough denies any shortness of breath denies any difficulty breathing, patient notes that his breathing is at his baseline and that he normally sats in the low 80s. Patient notes his multiple inhalers at home. His only concern at this time is that he is thirsty and requests a soda There is thick greenish drainage from the left eye no visual changes, patient wears glasses no contacts TRAVEL OUTSIDE OF THE [place] IN LAST 30 DAYS: No - HPI Onset: Other - 4 days Onset/Duration: Persistent Quality of pain: No pain Severity: Mild Pain Level: Denies Associated symptoms: Other Exacerbated by: Denies Relieved by: Denies Similar symptoms previously: No Recently seen / treated by doctor: No - Related Data Allergies/Adverse Reactions: amoxicillin [Amoxicillin] Adverse Reaction (Verified 01/23/18 19:07) Hives Iodinated Contrast- Oral and IV Dye [IV Dye, Iodine Containing] Adverse Reaction (Verified 01/23/18 19:07) Hives Penicillins Adverse Reaction (Verified 01/23/18 19:07) Hives Apricots Adverse Reaction (Mild, Uncoded 01/23/18 19:07) Hives Past Medical History - Social History Smoking Status: Current Every Day Smoker Cigarette use (# per day): Yes Chew tobacco use (# tins/day): No Smoking Education Provided: Yes - Patient counselled regarding cessation for 4 minutes Frequency of alcohol use: None Drug Abuse: None Family History: None Patient has suicidal ideation: No Patient has homicidal ideation: No - Past Medical History Cardiac Medical History: Reports: Hx Hypercholesterolemia, Hx Hypertension Denies: Hx Coronary Artery Disease, Hx Heart Attack Pulmonary Medical History: Reports: Hx Asthma, Hx Bronchitis, Hx COPD, Hx Pneumonia Denies: Hx Tuberculosis Neurological Medical History: Denies: Hx Cerebrovascular Accident, Hx Seizures Endocrine Medical History: Reports: Hx Diabetes Mellitus Type 2 Renal/ Medical History: Denies: Hx Peritoneal Dialysis Musculoskeltal Medical History: Denies Hx Arthritis Psychiatric Medical History: Reports: Hx Depression Past Surgical History: Reports: Hx Abdominal Surgery - herniax3, Hx Cholecystectomy, Hx Orthopedic Surgery - R foot - Immunizations Hx Diphtheria, Pertussis, Tetanus Vaccination: Yes Hx Pneumococcal Vaccination: 04/20/13 Review of Systems - Review of Systems Notes: REVIEW OF SYSTEMS: CONSTITUTIONAL : Denies fever, chills, or sweats. Denies recent illness. EENT: Admits to drainage from left eye CARDIOVASCULAR: Denies chest pain. Denies palpitations or racing or irregular heart beat. Denies ankle edema. RESPIRATORY: Denies cough, cold, or chest congestion. Denies shortness of breath, difficulty breathing, or wheezing. GASTROINTESTINAL: Denies abdominal pain or distention. Denies nausea, vomiting , or diarrhea. Denies blood in vomitus, stools, or per rectum. Denies black, tarry stools. Denies constipation. GENITOURINARY: Denies difficulty urinating, painful urination, burning, frequency, blood in urine, or discharge. MUSCULOSKELETAL: Denies back or neck pain or stiffness. Denies joint pain or swelling. SKIN: Denies rash, lesions or sores. HEMATOLOGIC : Denies easy bruising or bleeding. LYMPHATIC: Denies swollen, enlarged glands. NEUROLOGICAL: Denies confusion or altered mental status. Denies passing out or loss of consciousness. Denies dizziness or lightheadedness. Denies headache. Denies weakness or paralysis or loss of use of either side. Denies problems with gait or speech. Denies sensory loss, numbness, or tingling. Denies seizures. PSYCHIATRIC: Denies anxiety or stress. Denies depression, suicidal ideation, or homicidal ideation. ALL OTHER SYSTEMS REVIEWED AND NEGATIVE. Dictation was performed using [employer] voice recognition software PHYSICAL EXAMINATION: GENERAL: Well-appearing, well-nourished and in no acute distress. HEAD: Atraumatic, normocephalic. EYES: Pupils equal round and reactive to light, extraocular movements intact, sclera anicteric, left conjunctiva is injected with thick green drainage ENT: Nares patent, oropharynx clear without exudates. Moist mucous membranes. NECK: Normal range of motion, supple without lymphadenopathy LUNGS: coarse wheezing all throughout HEART: Regular rate and rhythm without murmurs ABDOMEN: Soft, nontender, nondistended abdomen. No guarding, no rebound. No masses appreciated. Musculoskeletal: Normal range of motion, no pitting or edema. No cyanosis. NEUROLOGICAL: Cranial nerves grossly intact. Normal speech, normal gait. Normal sensory, motor exams PSYCH: Normal mood, normal affect. SKIN: Warm, Dry, normal turgor, no rashes or lesions noted. Physical Exam - Vital signs Vitals: Pulse Ox 87 L 01/23/18 18:10 Course - Re-evaluation Re-evalutation: 01/23/18 19:29 pt does not want any workup regarding his breathing , states this is all chronic and just wants his eye taken care of, his O2 was 87% and quite concerning yet he states this is normal. At his insistent i will treat just his conjunctivitis however xrrenee has questionable pneumonia therefore I will write for azithromycin as well . 01/23/18 19:30 After performing a Medical Screening Examination, I estimate there is LOW risk for a RETAINED CORNEAL or LID FOREIGN BODY, DEEP SPACE INFECTION (e.g., ORBITAL CELLULITIS OR ABSCESS), ACUTE GLAUCOMA, PENETRATING GLOBE INJURY, RETINAL DETACHMENT, or MENINGITIS thus I consider the discharge disposition reasonable. I have reevaluated this patient multiple times and no significant life threatening changes are noted. Also, there is no evidence or peritonitis, sepsis , or toxicity. The patient and I have discussed the diagnosis and risks, and we agree with discharging home with outpatient follow-up with the understanding that symptoms and presentations can change. We also discussed returning to the Emergency Department immediately if new or worsening symptoms occur. We have discussed the symptoms which are most concerning (e.g., changing or worsening pain, vision changes, neck stiffness or fever) that necessitate immediate return. - Vital Signs Vital signs: Temp Pulse Resp BP Pulse Ox 98.1 F 93 127/71 H 89 L 01/23/18 19:03 01/23/18 19:03 01/23/18 19:03 01/23/18 19:03 - Laboratory Result Diagrams: 01/23/18 18:28 01/23/18 18:28 Laboratory results interpreted by me: 01/23/18 01/23/18 18:28 18:28 RDW 15.1 H Glucose 274 H Discharge - Discharge Clinical Impression: Hypoxemia [place] eye Qualifiers: Laterality: left Qualified Code(s): H10.022 - Other mucopurulent conjunctivitis , left eye Condition: Stable Disposition: HOME, SELF-CARE Instructions: Conjunctivitis ([facility]) Prescriptions: Azithromycin 250 mg PO ASDIR PRN #6 tablet PRN Reason: Referrals: ARTEMOI KAMINSKI MD [Primary Care Provider] - Follow up tomorrow
[2018-01-23 19:32] VITALS: BP 136/76
--- NOTE | 2018-01-23 19:33 | EKG REPORT ---
SEVERITY:- OTHERWISE NORMAL ECG - SINUS RHYTHM BORDERLINE RIGHT AXIS DEVIATION : Confirmed by: Guillermo Pham MD 23-Jan-2018 19:32:26
== END 2018-01-23 19:45 | disposition home or self-care (01) ==
LOC: ER 17:59
DX: J45.901 Unspecified asthma with (acute) exacerbation (principal); J44.9 Chronic obstructive pulmonary disease, unspecified; R09.02 Hypoxemia; H10.022 Other mucopurulent conjunctivitis, left eye; F17.210 Nicotine dependence, cigarettes, uncomplicated; I10 Essential (primary) hypertension; E11.9 Type 2 diabetes mellitus without complications; Z87.01 Personal history of pneumonia (recurrent); Z88.0 Allergy status to penicillin
CPT/HCPCS: 93005; 99284; 36415; 85025; 80048; 84484; 83880; 71046; 93010; J3490

== ENCOUNTER 2018-03-10 22:39 | Inpatient (IN) | payer MEDICARE, MEDICAID ==
[2018-03-10] MEDS ORDERED: METHYLPREDNISOLONE INJ 125 MG/2 ML SDV IV ONE (22:49)
[2018-03-10] MEDS ORDERED: MIDAZOLAM 2 MG/2 ML INJ IV ONE (22:50)
[2018-03-10] MEDS ORDERED: MIDAZOLAM HCL 50 MG/100 ML RTUINJ IV PRN (22:50)
[2018-03-10] MEDS ORDERED: IPRATROPIUM/ALBUTEROL 0.5-2.5 MG/3 ML AMPUL NEB ONE (22:50)
[2018-03-10 23:00] LABS: ABSOLUTE BASOPHILS # (AUTO) 0.1 10^3/uL (0.0-0.2); ABSOLUTE EOSINOPHILS # (AUTO) 0.2 10^3/uL (0.0-0.6); ABSOLUTE LYMPHOCYTES (AUTO) 4.6 10^3/uL (0.5-4.7); ABSOLUTE MONOCYTES (AUTO) 0.8 10^3/uL (0.1-1.4); ABSOLUTE NEUT (AUTO) 6.5 10^3/uL (1.7-8.2); BASOPHILS % (AUTO) 0.9 % (0-2); EOSINOPHILS % (AUTO) 1.9 % (0-6); HEMATOCRIT 49.7 % (37.9-51.0); HEMOGLOBIN 16.8 g/dL (13.5-17.0); LYMPHOCYTES % (AUTO) 37.6 % (13-45); MEAN CORPUSCULAR HEMOGLOBIN 33.2 pg (27.0-33.4); MEAN CORPUSCULAR HGB CONC 33.8 g/dL (32.0-36.0); MEAN CORPUSCULAR VOLUME 98 fl (80-97); MONOCYTES % (AUTO) 6.7 % (3-13); PLATELET COUNT 252 10^3/uL (150-450); RED BLOOD COUNT 5.07 10^6/uL (4.35-5.55); RED CELL DISTRIBUTION WIDTH 15.7 % (11.5-14.0); SEGMENTED NEUTROPHILS % (AUTO) 52.9 % (42-78); TOTAL CELLS COUNTED % (AUTO) 100 %; WHITE BLOOD COUNT 12.3 10^3/uL (4.0-10.5)
[2018-03-10] MEDS: MAGNESIUM SULFATE/D5W 1 GM/100 ML RTUPB IV SCH (23:01)
--- NOTE | 2018-03-10 23:07 | ER Document Report ---
ED General - General Chief Complaint: Respiratory Distress Stated Complaint: RESPIRATORY DISTRESS Time Seen by Provider: 03/10/18 22:48 Notes: Patient is a 52-year-old male who presents with complaint of some difficulty breathing. He is brought in by paramedics. Paramedics said when they found that he was marin in almost apneic. They said they try to place him on BiPAP and he went apneic and lately unresponsive. A very tight lung dickinson with poor air movement. He has history of COPD and still smokes. Patient comes into the ER with manual ventilation through bag mask ventilation. No further history available at this time. TRAVEL OUTSIDE OF THE [place] IN LAST 30 DAYS: No - Related Data Allergies/Adverse Reactions: amoxicillin [Amoxicillin] Adverse Reaction (Verified 01/23/18 19:07) Hives Iodinated Contrast- Oral and IV Dye [IV Dye, Iodine Containing] Adverse Reaction (Verified 01/23/18 19:07) Hives Penicillins Adverse Reaction (Verified 01/23/18 19:07) Hives Apricots Adverse Reaction (Mild, Uncoded 01/23/18 19:07) Hives Past Medical History - Social History Smoking Status: Current Every Day Smoker Frequency of alcohol use: unknown Drug Abuse: Other - unknown Family History: None - Past Medical History Cardiac Medical History: Reports: Hx Hypercholesterolemia, Hx Hypertension Denies: Hx Coronary Artery Disease, Hx Heart Attack Pulmonary Medical History: Reports: Hx Asthma, Hx Bronchitis, Hx COPD, Hx Pneumonia Denies: Hx Tuberculosis Neurological Medical History: Denies: Hx Cerebrovascular Accident, Hx Seizures Endocrine Medical History: Reports: Hx Diabetes Mellitus Type 2 Renal/ Medical History: Denies: Hx Peritoneal Dialysis Musculoskeletal Medical History: Denies Hx Arthritis Psychiatric Medical History: Reports: Hx Depression Past Surgical History: Reports: Hx Abdominal Surgery - herniax3, Hx Cholecystectomy, Hx Orthopedic Surgery - R foot - Immunizations Hx Diphtheria, Pertussis, Tetanus Vaccination: Yes Hx Pneumococcal Vaccination: 04/20/13 Review of Systems - Review of Systems -: Yes ROS unobtainable due to patient's medical condition - Patient is unresponsive. Physical Exam - Vital signs Vitals: Resp Pulse Ox 35 H 96 03/10/18 22:40 03/10/18 22:40 - Notes Notes: General Appearance: Completely unresponsive. Being ventilated through manual bag mask ventilation. Vitals: reviewed, See vital signs table. Head: no swelling or tenderness to the head Eyes: PERRL, Conjuctiva clear Mouth: No decreasd moisture Neck: Supple, no neck tenderness, No thyromegaly Lungs: Some scattered wheezing with fair repair movement bilaterally. Patient taking some respirations on his own but most of it is being done through manual ventilation via bag mask ventilation Heart: tachycardic rate, Regular rythm, No murmur, no rub Abdomen: Normal BS, soft, No rigidity, No abdominal tenderness, No guarding, no rebound, no abdominal masses, Extremities: good pulses in all extremities, , 1+ edema bilaterally in lower extremities Skin: warm, dry, appropriate color, no rash Neuro: Patient is unresponsive. Patient does have some spontaneous intake of breathing but otherwise is not moving any extremities is not responding to any type of stimuli. Course - Re-evaluation Re-evalutation: 03/11/18 00:12 Reevaluation patient is doing well on the ventilator. His lung dickinson are started clearing is much better air movement. I did speak with the family. Patient does have signs of respiratory acidosis. I will repeat his venous blood gas now that he is on the ventilator and see if it is improving. I have sent a page to Dr. Hernandez about speaking with him about admission. 03/11/18 00:[address] Hernandez who requested I speak with Dr. Sales to make sure he be willing to consult on the patient. I spoke with Dr. Juarez who would be happy to consult on the patient. I called back Dr. Hernandez who now agrees to admit the patient. 03/11/18 01:40 Patient's blood gas came back improving but only by little bit. I have increased his respiratory rate from 14-16. I have decreased his FiO2 from 90% to 75% being that he is now SpO2 100% on the ventilator. - Vital Signs Vital signs: Temp Pulse Resp BP Pulse Ox 97.5 F 21 H 152/93 H 99 03/11/18 00:46 03/11/18 00:46 03/11/18 00:46 03/11/18 00:46 - Laboratory Result Diagrams: 03/10/18 22:45 03/10/18 22:45 Laboratory results interpreted by me: 03/10/18 03/10/18 03/10/18 22:45 22:45 22:58 WBC 12.3 H MCV 98 H RDW 15.7 H VBG pH 7.12 L* VBG pCO2 100.7 H* Potassium 5.1 H Glucose 198 H Direct Bilirubin 0.5 H ALT 9 L Urine Protein Urine Glucose (UA) 03/10/18 03/11/18 23:05 00:20 WBC MCV RDW VBG pH 7.16 L* VBG pCO2 82.4 H* Potassium Glucose Direct Bilirubin ALT Urine Protein 100 H Urine Glucose (UA) >=500 H - EKG Interpretation by Me Additional EKG results interpreted by me: 03/10/18 23:06 EKG is reviewed and interpreted by me. EKG shows sinus tachycardia with a rate of [address] segment elevation or depression. No ischemic T wave inversions. UT interval, QRS duration, QTc intervals are within normal range. Old EKG for comparison is from January 23, 2018. Discharge - Discharge Clinical Impression: COPD with acute exacerbation Condition: Serious Disposition: ADMITTED INPATIENT Admitting Provider: [facility] Unit Admitted: ICU
[2018-03-10 23:26] LABS: VENOUS BLOOD BASE EXCESS -1.3 mmol/L; VENOUS BLOOD HCO3 31.9 mmol/L (20-32)
[2018-03-10 23:27] LABS: ALANINE AMINOTRANSFERASE 9 U/L (21-72); ALBUMIN 4.5 g/dL (3.5-5.0); ALKALINE PHOSPHATASE 84 U/L (38-126); ANION GAP 10 (5-19); ASPARTATE AMINO TRANSFERASE 28 U/L (17-59); BILIRUBIN,DIRECT 0.5 mg/dL (0.0-0.4); BILIRUBIN,TOTAL 0.5 mg/dL (0.2-1.3); BLOOD UREA NITROGEN 14 mg/dL (7-20); CALCIUM 9.1 mg/dL (8.4-10.2); CARBON DIOXIDE 30 mmol/L (22-30); CHLORIDE 103 mmol/L (98-107); GLUCOSE 198 mg/dL (75-110); POTASSIUM 5.1 mmol/L (3.6-5.0); SODIUM 142.7 mmol/L (137-145); TOTAL PROTEIN 7.7 g/dL (6.3-8.2)
[2018-03-10 23:35] LABS: APPEARANCE,URINE CLEAR; BILIRUBIN,URINE NEGATIVE (NEGATIVE); COLOR,URINE YELLOW; GLUCOSE, URINE >=500 mg/dL (NEGATIVE); KETONES,URINE NEGATIVE (NEGATIVE); LEUKOCYTE ESTERASE,URINE NEGATIVE (NEGATIVE); NITRITE,URINE NEGATIVE (NEGATIVE); PROTEIN,URINE 100 mg/dL (NEGATIVE); URINE SPECIFIC GRAVITY 1.022; UROBILINOGEN,URINE NEGATIVE mg/dL (<2.0)
--- NOTE | 2018-03-10 23:36 | RADIOLOGY REPORT (SQ) ---
EXAM DESCRIPTION: XR CHEST 1 VIEW COMPLETED DATE/TME: 03/10/2018 22:49 CLINICAL HISTORY: post intubation COMPARISON: 01/23/2018 FINDINGS: Single frontal view of the chest. Endotracheal tube with tip 4 cm above the orly. NG tube with tip proceeding below the diaphragm. Leads overlie the chest. Heart is not enlarged. Blunting of the costophrenic angles bilaterally suggesting small bilateral pleural effusions. No pneumothorax. Hazy left basilar opacification. No acute osseous abnormalities. Upper abdominal soft tissues are unremarkable. IMPRESSION: 1. Endotracheal tube with in appropriate radiographic position. 2. Patchy left basilar opacity may be related to developing pneumonia or atelectasis. 3. Possible small bilateral pleural effusions.
[2018-03-10 23:51] LABS: VENOUS BLOOD PH 7.12 (7.30-7.42)
[2018-03-10 23:52] LABS: VENOUS BLOOD PCO2 100.7 mmHg (35-63)
[2018-03-11] MEDS ORDERED: LEVOFLOXACIN 750 MG/D5W RTU 750 MG/150 ML RTUPB IV ONE (00:03)
[2018-03-11] MEDS ORDERED: ACETAMINOPHEN 650 MG SUPP.RECT PR PRN (00:16)
[2018-03-11] MEDS ORDERED: GLUCAGON,HUMAN RECOMB 1 MG INJ IM PRN (00:22)
[2018-03-11] MEDS ORDERED: DEXTROSE 50%-WATER 25 GM/50 ML DISP.SYRIN IV PRN ×2 (00:22)
[2018-03-11] MEDS ORDERED: DEXTROSE 40% GEL 15 GM TUBE PO PRN ×2 (00:22)
[2018-03-11 00:33] LABS: VENOUS BLOOD BASE EXCESS -2.5 mmol/L; VENOUS BLOOD HCO3 28.8 mmol/L (20-32)
[2018-03-11 00:38] LABS: VENOUS BLOOD PCO2 82.4 mmHg (35-63); VENOUS BLOOD PH 7.16 (7.30-7.42)
[2018-03-11 01:53] LABS: URINE AMPHETAMINES SCREEN NEGATIVE; URINE BARBITURATES SCREEN NEGATIVE; URINE BENZODIAZEPINES SCREEN NEGATIVE; URINE COCAINE SCREEN NEGATIVE; URINE MARIJUANA (THC) SCREEN NEGATIVE; URINE METHADONE SCREEN NEGATIVE; URINE PHENCYCLIDINE SCREEN NEGATIVE
[2018-03-11 03:00] LABS: ARTERIAL BLOOD BASE EXCESS -3.1 mmol/L; ARTERIAL BLOOD H2CO3 2.45 mmol/L (1.05-1.35); ARTERIAL BLOOD HCO3 28.3 mmol/L (20-26); ARTERIAL BLOOD O2 SATURATION 99.2 % (94-98); ARTERIAL BLOOD PO2 222.1 mmHg (80-100); ARTERIAL BLOOD TOTAL CO2 30.8 mmol/L (23-27)
[2018-03-11 03:03] LABS: ARTERIAL BLOOD FIO2 75%
[2018-03-11 03:04] LABS: ARTERIAL BLOOD PCO2 81.3 mmHg (35-45); ARTERIAL BLOOD PH 7.16 (7.35-7.45)
[2018-03-11] MEDS ORDERED: PROPOFOL 1,000 MG/100 ML INFUS..BTL IV ONE (04:10)
[2018-03-11] MEDS: NORMAL SALINE 1000 ML 1,000 ML IV PRN ×2 (04:12→18:19)
[2018-03-11] MEDS: MAGNESIUM SULFATE/D5W 1 GM/100 ML RTUPB IV SCH (04:12)
[2018-03-11] MEDS: PROPOFOL 1,000 MG/100 ML INFUS..BTL IV PRN ×4 (04:14→19:25)
[2018-03-11] MEDS: METHYLPREDNISOLONE INJ 40 MG/1 ML SDV IV SCH ×3 (05:29→18:19)
[2018-03-11 05:37] LABS: CREATINE KINASE MB 3.14 ng/mL (<4.55)
[2018-03-11 05:43] LABS: TROPONIN I 0.355 ng/mL
[2018-03-11 06:54] LABS: ABSOLUTE BASOPHILS # (AUTO) 0.1 10^3/uL (0.0-0.2); ABSOLUTE LYMPHOCYTES (AUTO) 0.4 10^3/uL (0.5-4.7); ABSOLUTE MONOCYTES (AUTO) 0.2 10^3/uL (0.1-1.4); ABSOLUTE NEUT (AUTO) 7.3 10^3/uL (1.7-8.2); BASOPHILS % (AUTO) 0.7 % (0-2); EOSINOPHILS % (AUTO) 0.1 % (0-6); HEMATOCRIT 48.9 % (37.9-51.0); HEMOGLOBIN 16.1 g/dL (13.5-17.0); LYMPHOCYTES % (AUTO) 5.2 % (13-45); MEAN CORPUSCULAR HEMOGLOBIN 32.7 pg (27.0-33.4); MEAN CORPUSCULAR HGB CONC 32.9 g/dL (32.0-36.0); MEAN CORPUSCULAR VOLUME 99 fl (80-97); PLATELET COUNT 151 10^3/uL (150-450); RED BLOOD COUNT 4.92 10^6/uL (4.35-5.55); RED CELL DISTRIBUTION WIDTH 15.4 % (11.5-14.0); TOTAL CELLS COUNTED % (AUTO) 100 %; WHITE BLOOD COUNT 7.9 10^3/uL (4.0-10.5)
[2018-03-11 07:09] LABS: ALANINE AMINOTRANSFERASE 20 U/L (21-72); ALBUMIN 3.6 g/dL (3.5-5.0); ALKALINE PHOSPHATASE 76 U/L (38-126); ASPARTATE AMINO TRANSFERASE 23 U/L (17-59); BILIRUBIN,DIRECT 0.3 mg/dL (0.0-0.4); BILIRUBIN,TOTAL 0.4 mg/dL (0.2-1.3); BLOOD UREA NITROGEN 17 mg/dL (7-20); CALCIUM 8.5 mg/dL (8.4-10.2); CARBON DIOXIDE 27 mmol/L (22-30); CHLORIDE 102 mmol/L (98-107); GLUCOSE 289 mg/dL (75-110); POTASSIUM 5.8 mmol/L (3.6-5.0); TOTAL PROTEIN 6.3 g/dL (6.3-8.2)
[2018-03-11 07:11] LABS: ANION GAP 11 (5-19); SODIUM 139.9 mmol/L (137-145)
--- NOTE | 2018-03-11 07:14 | RADIOLOGY REPORT (SQ) ---
EXAM DESCRIPTION: XR CHEST 1 VIEW COMPLETED DATE/TME: 03/11/2018 00:00 CLINICAL HISTORY: mechanical ventilator management COMPARISON: 03/10/2018 FINDINGS: Single frontal view of the chest. Endotracheal tube with tip 4 cm above the orly. NG tube with tip proceeding below the diaphragm. Leads overlie the chest. Cardiomediastinal silhouette is stable. Blunting of the costophrenic angles bilaterally suggesting small bilateral pleural effusions. No pneumothorax. Hazy left basilar opacification. Osseous structures are stable. Upper abdominal soft tissues are unremarkable. IMPRESSION: 1. Stable appearance of the chest. Electronically signed by: Rafa Lopez 03/11/2018 6:12 AM
[2018-03-11] MEDS: IPRATROPIUM/ALBUTEROL 0.5-2.5 MG/3 ML AMPUL NEB SCH ×4 (08:03→20:54)
[2018-03-11] MEDS ORDERED: SODIUM POLYSTYRENE SULFONATE 15 GM/60 ML PO ONE (08:30)
[2018-03-11 08:32] LABS: ARTERIAL BLOOD BASE EXCESS -3.4 mmol/L; ARTERIAL BLOOD H2CO3 1.81 mmol/L (1.05-1.35); ARTERIAL BLOOD HCO3 25.3 mmol/L (20-26); ARTERIAL BLOOD O2 SATURATION 97.6 % (94-98); ARTERIAL BLOOD PCO2 60.1 mmHg (35-45); ARTERIAL BLOOD PH 7.24 (7.35-7.45); ARTERIAL BLOOD PO2 119.6 mmHg (80-100); ARTERIAL BLOOD TOTAL CO2 27.1 mmol/L (23-27)
[2018-03-11 08:33] LABS: ARTERIAL BLOOD FIO2 60%
--- NOTE | 2018-03-11 08:34 | EKG REPORT ---
SEVERITY:- ABNORMAL ECG - SINUS RHYTHM LATERAL INFARCT, AGE INDETERMINATE : Confirmed by: Keaton Manning 11-Mar-2018 08:34:22
--- NOTE | 2018-03-11 08:37 | EKG REPORT ---
SEVERITY:- ABNORMAL ECG - SINUS TACHYCARDIA LEFT POSTERIOR FASCICULAR BLOCK CONSIDER R ARM L ARM LEAD REVERSAL : Confirmed by: Keaton Manning 11-Mar-2018 08:37:24
[2018-03-11] MEDS ORDERED: ROCURONIUM BROMIDE INJ 50 MG/5 ML VIAL IV ONE (09:15)
--- NOTE | 2018-03-11 09:15 | RADIOLOGY REPORT (SQ) ---
EXAM DESCRIPTION: CT CHEST WITHOUT COMPLETED DATE/TIME: 03/11/2018 9:05 am REASON FOR STUDY: respirtoy failure COMPARISON: 02/21/2011 TECHNIQUE: CT scan performed of the chest without intravenous contrast. Images reviewed with lung, soft tissue and bone windows. Reconstructed coronal and sagittal MPR images reviewed. All images st ored on PACS. All CT scanners at this facility use dose modulation, iterative reconstruction, and/or weight based d osing when appropriate to reduce radiation dose to as low as reasonably achievable (ALARA). [facility]: Dose Right [facility]: CareDose [facility]: Dose Right [facility]: Teradose 4D [facility]: SplitGigs RADIATION DOSE: mGy. LIMITATIONS: No technical limitations. FINDINGS: LUNGS AND PLEURA: Stable areas of peripheral scarring in the lingula and both lower lobes. No developing nodules for infiltrates. No effusions. No pneumothorax. HILAR AND MEDIASTINAL STRUCTURES: No identified masses or abnormal nodes. No obvious aneurysm. HEART AND VASCULAR STRUCTURES: No aneurysm. No pericardial effusion. UPPER ABDOMEN: Atrophic left kidney. Limited exam. THYROID AND OTHER SOFT TISSUES: No masses. No adenopathy. BONES: No acute findings. HARDWARE: None in the chest. OTHER: Appropriate position of nasogastric and endotracheal tubes. IMPRESSION: No infiltrate. No pneumothorax. TECHNICAL DOCUMENTATION: JOB ID: [id number] Quality ID # [id number]: Final reports with documentation of one or more dose reduction techniques (e.g., Au tomated exposure control, adjustment of the mA and/or kV according to patient size, use of iterative reconstruction technique) 2010 [employer]- All Rights Reserved Reading location - IP/workstation name: [facility]
[2018-03-11] MEDS ORDERED: ENOXAPARIN SODIUM INJ 40 MG/0.4 ML DISP.SYRIN SUBCUT SCH (10:00)
[2018-03-11] MEDS: FAMOTIDINE INJ/PF 20 MG/2 ML SDV IV SCH ×2 (10:32→21:35)
[2018-03-11 12:19] LABS: CREATINE KINASE MB 3.51 ng/mL (<4.55); TROPONIN I 0.395 ng/mL
[2018-03-11] MEDS: INSULIN LISPRO 100 UNIT/ML 3 ML VIAL SUBCUT PRN ×2 (13:11→18:18)
--- NOTE | 2018-03-11 13:27 | PDOC H&P ---
History of Present Illness Admission Date/PCP: 03/11/18 00:24 ARTEMIO KAMINSKI MD Patient complains of: Respiratory distress History of Present Illness: ADÁN CHEUNG is a 52 year old male This is a 52-year-old male very noncompliance history of the COPD chronic smoker history of the respiratory distress and intubation in the past history of the type 2 diabetes mellitus hypertension's morbid obesityNot this difficulty in breathing yesterday in patients called the EMS when EMS reached patient was pale and patients was respiratory distress and patient was Put on a Ventimask in patients brought to the emergency department patient was intubated and patient was respiratory failure Patient's currently intubated under sedations Patient's a chronic smoker Patient's family friends and outside the ICU discussed with him does not know exactly what happened Past Medical History Cardiac Medical History: Reports: Hyperlipidema, Hypertension Denies: Coronary Artery Disease, Myocardial Infarction Pulmonary Medical History: Reports: Asthma, Bronchitis, Chronic Obstructive Pulmonary Disease (COPD), Pneumonia Denies: Tuberculosis Neurological Medical History: Denies: Seizures Endocrine Medical History: Reports: Diabetes Mellitus Type 2 Musculoskeltal Medical History: Denies: Arthritis Psychiatric Medical History: Reports: Depression Hematology: Denies: Anemia Past Surgical History Past Surgical History: Reports: Cholecystectomy, Orthopedic Surgery - R foot Social History Smoking Status: Current Every Day Smoker Cigarettes Packs Per Day: 1.5 Frequency of Alcohol Use: None Hx Recreational Drug Use: No Drugs: None Hx Prescription Drug Abuse: No Family History Family History: None, Reviewed & Not Pertinent Parental Family History Reviewed: Yes Children Family History Reviewed: Yes Sibling(s) Family History Reviewed.: Yes Medication/Allergy Home Medications: Albuterol Sulfate [Proair HFA] 2 puff IH Q4HP PRN 09/06/17 Atorvastatin Calcium [Lipitor 20 mg Tablet] 20 mg PO QHS 09/06/17 Gabapentin [Neurontin 100 mg Capsule] 100 mg PO Q8 09/06/17 Insulin Aspart [Novolog Flexpen] 4 unit SQ TID 09/06/17 Insulin Detemir [Levemir] 36 unit SQ BID 09/06/17 Ipratropium/Albuterol Sulfate [Combivent Respimat 20-100 Mcg] 1 puff IH QID Metformin HCl [Glucophage] 1,000 mg PO BIDACBS 09/06/17 Sertraline HCl [Zoloft 50 mg Tablet] 50 mg PO DAILY 09/06/17 Tamsulosin HCl [Flomax 0.4 mg Cap.sr] 0.4 mg PO DAILY 09/06/17 Levofloxacin [Levaquin 500 mg Tablet] 500 mg PO QPM #7 tablet 09/10/17 Prednisone [Deltasone 20 mg Tablet] 20 mg PO DAILY #6 tablet 09/10/17 Azithromycin 250 mg PO ASDIR PRN #6 tablet 01/23/18 Allergies/Adverse Reactions: amoxicillin [Amoxicillin] Adverse Reaction (Verified 01/23/18 19:07) Hives Iodinated Contrast- Oral and IV Dye [IV Dye, Iodine Containing] Adverse Reaction (Verified 01/23/18 19:07) Hives Penicillins Adverse Reaction (Verified 01/23/18 19:07) Hives Apricots Adverse Reaction (Mild, Uncoded 01/23/18 19:07) Hives Review of Systems ROS unobtainable: Due to endotracheal tube All systems: reviewed and no additional remarkable complaints except as stated Physical Exam Vital Signs: Temp Pulse Resp BP Pulse Ox 97.9 F 83 20 120/79 94 03/11/18 12:00 03/11/18 12:00 03/11/18 12:00 03/11/18 12:00 03/11/18 12:00 Intake & Output 03/10/18 03/11/18 03/12/18 06:59 06:59 06:59 Intake Total 100 Output Total 275 300 Balance -275 -200 Weight 95.5 kg Physical Exam: Currently intubated under sedation General appearance: PRESENT: no acute distress Eye exam: PRESENT: PERRLA Mouth exam: PRESENT: neck supple Respiratory exam: PRESENT: decreased breath sounds Cardiovascular exam: PRESENT: +S1, +S2 GI/Abdominal exam: PRESENT: normal bowel sounds, soft Extremities exam: ABSENT: pedal edema Neurological exam: PRESENT: other Skin exam: PRESENT: dry Results Laboratory Results: 03/11/18 04:45 03/11/18 10:14 03/11/18 03/11/18 03/11/18 02:37 04:45 04:45 WBC 7.9 RBC 4.92 Hgb 16.1 Hct 48.9 MCV 99 H MCH 32.7 MCHC 32.9 RDW 15.4 H Plt Count 151 Seg Neutrophils % 92.0 H Lymphocytes % 5.2 L Monocytes % 2.0 L Eosinophils % 0.1 Basophils % 0.7 Absolute Neutrophils 7.3 Absolute Lymphocytes 0.4 L Absolute Monocytes 0.2 Absolute Eosinophils 0.0 Absolute Basophils 0.1 Carbonic Acid 2.45 H HCO3/H2CO3 Ratio 11:1 ABG pH 7.16 L* ABG pCO2 81.3 H* ABG pO2 222.1 H ABG HCO3 28.3 H ABG O2 Saturation 99.2 H ABG Base Excess -3.1 FiO2 75% Sodium 139.9 Potassium 5.8 H Chloride 102 Carbon Dioxide 27 Anion Gap 11 BUN 17 Creatinine 1.02 Est GFR ( Amer) > 60 Est GFR (Non-Af Amer) > 60 Glucose 289 H Lactic Acid Calcium 8.5 Phosphorus 5.0 H Magnesium 2.4 H Total Bilirubin 0.4 AST 23 ALT 20 L Alkaline Phosphatase 76 Total Protein 6.3 Albumin 3.6 03/11/18 03/11/18 03/11/18 08:10 10:14 10:14 WBC RBC Hgb Hct MCV MCH MCHC RDW Plt Count Seg Neutrophils % Lymphocytes % Monocytes % Eosinophils % Basophils % Absolute Neutrophils Absolute Lymphocytes Absolute Monocytes Absolute Eosinophils Absolute Basophils Carbonic Acid 1.81 H HCO3/H2CO3 Ratio 13:1 ABG pH 7.24 L ABG pCO2 60.1 H ABG pO2 119.6 H ABG HCO3 25.3 ABG O2 Saturation 97.6 ABG Base Excess -3.4 FiO2 60% Sodium Potassium 5.2 H Chloride Carbon Dioxide Anion Gap BUN Creatinine Est GFR ( Amer) Est GFR (Non-Af Amer) Glucose Lactic Acid 2.3 H Calcium Phosphorus Magnesium Total Bilirubin AST ALT Alkaline Phosphatase Total Protein Albumin 03/11/18 03/11/18 03/11/18 04:45 04:45 11:28 Creatine Kinase 80 56 CK-MB (CK-2) 3.14 Troponin I 0.355 03/11/18 11:28 Creatine Kinase CK-MB (CK-2) 3.51 Troponin I 0.395 Impressions: Chest CT 03/11/18 00:00 IMPRESSION: No infiltrate. No pneumothorax. Chest X-Ray 03/11/18 00:00 IMPRESSION: 1. Stable appearance of the chest. Assessment & Plan - Diagnosis (1) Acute respiratory failure Qualifiers: Respiratory failure complication: hypoxia Qualified Code(s): J96.01 - Acute respiratory failure with hypoxia Is this a current diagnosis for this admission?: Yes Plan: Most likely a severe COPD Will continues to nebulizer treatments consult the pulmonary (2) COPD with acute exacerbation Is this a current diagnosis for this admission?: Yes Plan: Continuous IV steroid and Nebulizer (3) Elevated troponin Is this a current diagnosis for this admission?: Yes Plan: Initial troponin was negative after intubation set troponin was elevated will consult the cardiology Get the echocardiogram (4) Hyperkalemia Is this a current diagnosis for this admission?: Yes Plan: Repeat the potassium (5) Tobacco abuse Is this a current diagnosis for this admission?: Yes (6) Type 2 diabetes mellitus Qualifiers: Diabetes mellitus assisted insulin use: unspecified assisted insulin use status Is this a current diagnosis for this admission?: Yes Plan: Continue sliding-scale (7) Hypertension Qualifiers: Hypertension type: essential hypertension Qualified Code(s): I10 - Essential (primary) hypertension Is this a current diagnosis for this admission?: Yes (8) Hyperlipidemia Qualifiers: Hyperlipidemia type: unspecified Qualified Code(s): E78.5 - Hyperlipidemia , unspecified Is this a current diagnosis for this admission?: Yes (9) Noncompliance Is this a current diagnosis for this admission?: Yes - Time Time Spent: 50 to 70 Minutes Critical Time spent with patient: 25-34 minutes Medications reviewed and adjusted accordingly: Yes Anticipated discharge: Other Within: Other - Inpatient Certification I certify that my determination is in accordance with my understanding of Medicare's requirements for reasonable and necessary INPATIENT services [42 CFR 412.3e].: Yes Medical Necessity: Need For IV Fluids, Need for IV Antibiotics Post Hospital Care: D/C Business Development Intern Documentation - Plan Summary Plan Summary: Admit in ICU Discussed with the pulmonary and cardiology Discussed with the patient's family friend in icu
[2018-03-11] MEDS: ENOXAPARIN SODIUM INJ 100 MG/1 ML DISP.SYRIN SUBCUT SCH (15:51)
[2018-03-11 17:00] LABS: POTASSIUM 4.5 mmol/L (3.6-5.0)
[2018-03-11 17:06] LABS: TROPONIN I 0.291 ng/mL
[2018-03-11] MEDS: ASPIRIN 300 MG SUPP, RECTAL PR SCH (21:33)
[2018-03-11] MEDS ORDERED: LEVOFLOXACIN 750 MG/D5W RTU 750 MG/150 ML RTUPB IV SCH (22:00)
--- NOTE | 2018-03-11 22:12 | EKG REPORT ---
SEVERITY:- ABNORMAL ECG - SINUS RHYTHM ABNORMAL T, CONSIDER ISCHEMIA, ANT-LAT LEADS BORDERLINE PROLONGED QT INTERVAL : Confirmed by: Keaton Manning 11-Mar-2018 22:12:02
[2018-03-11 23:45] LABS: ARTERIAL BLOOD BASE EXCESS 2.1 mmol/L; ARTERIAL BLOOD FIO2 45%; ARTERIAL BLOOD H2CO3 1.35 mmol/L (1.05-1.35); ARTERIAL BLOOD HCO3 27.3 mmol/L (20-26); ARTERIAL BLOOD O2 SATURATION 93.2 % (94-98); ARTERIAL BLOOD PCO2 44.7 mmHg (35-45); ARTERIAL BLOOD PO2 66.4 mmHg (80-100); ARTERIAL BLOOD TOTAL CO2 28.7 mmol/L (23-27)
[2018-03-12] MEDS: PROPOFOL 1,000 MG/100 ML INFUS..BTL IV PRN ×5 (00:20→15:17)
[2018-03-12] MEDS: METHYLPREDNISOLONE INJ 40 MG/1 ML SDV IV SCH ×3 (00:22→13:06)
[2018-03-12 05:22] LABS: HEMATOCRIT 43.4 % (37.9-51.0); HEMOGLOBIN 14.9 g/dL (13.5-17.0); MEAN CORPUSCULAR HGB CONC 34.3 g/dL (32.0-36.0); MEAN CORPUSCULAR VOLUME 96 fl (80-97); PLATELET COUNT 134 10^3/uL (150-450); RED BLOOD COUNT 4.51 10^6/uL (4.35-5.55); RED CELL DISTRIBUTION WIDTH 14.7 % (11.5-14.0); WHITE BLOOD COUNT 10.3 10^3/uL (4.0-10.5)
[2018-03-12] MEDS: ENOXAPARIN SODIUM INJ 100 MG/1 ML DISP.SYRIN SUBCUT SCH (05:26)
[2018-03-12 05:41] LABS: ALANINE AMINOTRANSFERASE 19 U/L (21-72); ALBUMIN 2.9 g/dL (3.5-5.0); ALKALINE PHOSPHATASE 65 U/L (38-126); ANION GAP 9 (5-19); ASPARTATE AMINO TRANSFERASE 8 U/L (17-59); BILIRUBIN,DIRECT 0.3 mg/dL (0.0-0.4); BILIRUBIN,TOTAL 0.3 mg/dL (0.2-1.3); BLOOD UREA NITROGEN 21 mg/dL (7-20); CALCIUM 8.3 mg/dL (8.4-10.2); CARBON DIOXIDE 24 mmol/L (22-30); CHLORIDE 104 mmol/L (98-107); GLUCOSE 300 mg/dL (75-110); POTASSIUM 4.4 mmol/L (3.6-5.0); SODIUM 137.4 mmol/L (137-145); TOTAL PROTEIN 5.2 g/dL (6.3-8.2); TRIGLYCERIDES 193 mg/dL (<150)
[2018-03-12 06:04] LABS: ABSOLUTE LYMPHOCYTES# (MANUAL) 0.7 10^3/uL (0.5-4.7); ABSOLUTE MONOCYTES # (MANUAL) 0.1 10^3/uL (0.1-1.4); ABSOLUTE NEUTROPHILS# (MANUAL) 9.5 10^3/uL (1.7-8.2); BASOPHILS % (MANUAL) 0 % (0-2); EOSINOPHILS % (MANUAL) 0 % (0-6); LYMPHOCYTES % (MANUAL) 7 % (13-45); MONOCYTES % (MANUAL) 1 % (3-13); SEGMENTED NEUTROPHILS % (MAN) 92 % (42-78); TOTAL CELLS COUNTED 100
[2018-03-12 06:05] LABS: PLATELET COMMENT DECREASED; RBC MORPHOLOGY COMMENT NORMO-CYTIC/CHROMIC
[2018-03-12] MEDS: INSULIN LISPRO 100 UNIT/ML 3 ML VIAL SUBCUT PRN ×2 (06:34→13:10)
[2018-03-12 06:46] LABS: ARTERIAL BLOOD BASE EXCESS -1.4 mmol/L; ARTERIAL BLOOD FIO2 45%; ARTERIAL BLOOD H2CO3 1.08 mmol/L (1.05-1.35); ARTERIAL BLOOD HCO3 22.6 mmol/L (20-26); ARTERIAL BLOOD O2 SATURATION 98.8 % (94-98); ARTERIAL BLOOD PCO2 35.9 mmHg (35-45); ARTERIAL BLOOD PH 7.42 (7.35-7.45); ARTERIAL BLOOD PO2 139.6 mmHg (80-100); ARTERIAL BLOOD TOTAL CO2 23.7 mmol/L (23-27)
[2018-03-12] MEDS: NORMAL SALINE 1000 ML 1,000 ML IV PRN (07:02)
[2018-03-12] MEDS: IPRATROPIUM/ALBUTEROL 0.5-2.5 MG/3 ML AMPUL NEB SCH ×2 (08:08→11:40)
--- NOTE | 2018-03-12 09:33 | EKG REPORT ---
SEVERITY:- ABNORMAL ECG - SINUS RHYTHM RIGHT AXIS DEVIATION ABNORMAL T, CONSIDER ISCHEMIA, ANT-LAT LEADS PROLONGED QT INTERVAL : Confirmed by: Keaton Manning 12-Mar-2018 09:32:19
[2018-03-12] MEDS: ASPIRIN 300 MG SUPP, RECTAL PR SCH (10:50)
[2018-03-12] MEDS: FAMOTIDINE INJ/PF 20 MG/2 ML SDV IV SCH (10:50)
--- NOTE | 2018-03-12 12:10 | CONSULTATION REPORT E ---
Consultation Report NAME: ADÁN CHEUNG : 1965 AGE: 52Y DATE: 03/11/2018 603 A TO: KAMILLE DUNBAR M.D. FROM: ARTEMIO KAMINSKI M.D. Requesting Physician REASON FOR CONSULTATION: The patient is a 52-year-old male who came in with severe COPD/asthma exacerbation, was ashen marin at home, when paramedics saw him, and he was subsequently endotracheally intubated and mechanically ventilated and transferred to ICU. He was given nebulizer treatments, they gave him IV antibiotics; Levaquin 750 mg, and Solu-Medrol 155 mg IV stat dose, and then 80 mg every 6 hours after. The patient appeared to be improving this morning. Has scanty endotracheal tube secretions. The patient tolerated NG tube feeding, which was started at 20 mL today. No vomiting, no diarrhea noted. PAST MEDICAL HISTORY: 1. Hypertension. 2. Hyperlipidemia. 3. Asthma. 4. Bronchitis. 5. COPD. 6. Pneumonia. PAST SURGICAL HISTORY: 1. Cholecystectomy. 2. Orthopedic surgery right foot. SOCIAL HISTORY: Heavy smoker, smokes about 1/2 pack per day for several years. Denies illicit drug use or alcohol abuse. MEDICATIONS: Include: 1. Albuterol inhaler. 2. Lipitor. 3. Neurontin. 4. Insulin aspart. 5. NovoLog. 6. Levemir. 7. Combivent inhaler. 8. Metformin. 9. Zoloft. 10. Flomax. 11. Levaquin. 12. Prednisone. 13. Azithromycin. ALLERGIES: 1. Amoxicillin. 2. Oral IV dye. 3. Penicillin. REVIEW OF SYSTEMS: CONSTITUTIONAL: No fever or chills. Increased shortness of breath. Marked pallor and looked cyanotic when the patient was seen by the paramedics and subsequently brought to the emergency room. The patient was Ambu-bagged on the way to the emergency room and the patient subsequently was endotracheally intubated. RESPIRATORY: Complained about increased shortness of breath and wheezing and chest tightness for the last few days. CARDIOVASCULAR: Complained about chest pain. No angina. No history of heart attack. GASTROINTESTINAL: No nausea, vomiting, diarrhea. GENITOURINARY: No dysuria or hematuria. EXTREMITIES: No joint swelling or cellulitis. PHYSICAL EXAMINATION: GENERAL: Currently, the patient is sedated, afebrile, not in acute respiratory distress. VITAL SIGNS: Temperature 98.1, heart rate of 84, respirations 20, saturation is 92. The patient is on SIMV at a rate of 20, tidal volume 480 based on the patient's ideal body weight at 80 mL/kg ideal body weight, PEEP of 5, pressure support 10, FiO2 of 40% and titrated to keep saturation 91-94%. EYES: No jaundice or pallor. EARS, NOSE AND THROAT: No ear drainage noted. No nasal discharge. HEAD AND NECK: No scalp swelling or tenderness. Neck supple. CHEST AND LUNGS: No wheezing. No rhonchi. No coarse crackles. CARDIOVASCULAR: S1, S2 distinct. Normal rate and rhythm. ABDOMEN: Flabby. Positive bowel sounds. Soft, nondistended. EXTREMITIES: No joint swelling. LABORATORY: CBC done today shows a white count of 7.9, hemoglobin 16.1, hematocrit is 48.9, and platelet count is 151. Chemistry done today shows sodium 139.9, potassium 5.8, which was rechecked at 5.2, chloride 102, CO2 is 27, BUN 17, creatinine 1.02. The lactate is 2.3. His SGOT is 23, SGPT 20. ABG done at 8:00 a.m. today showed a pH of 7.24, PCO2 is 60 from 81, PO2 119, and saturation is 99%. DIAGNOSTIC STUDIES: Chest x-ray done today showed endotracheal tube is in place. No pneumothorax. No apparent pneumonia noted. No cardiomegaly. No apparent pleural effusion. Chest CT scan today showed no signs of a pneumonic process or consolidation. No signs of pneumothorax. No pleural effusion. No signs of worrisome pulmonary nodules. ASSESSMENT: 1. Acute respiratory failure requiring invasive mechanical ventilation. 2. COPD/asthma in acute severe exacerbation. PLAN AND RECOMMENDATIONS: 1. Will continue with the ventilatory support. 2. We will do a spontaneous breathing trial tomorrow morning. 3. We will continue the nebulizer treatment every 6 hours. 4. Continue the Solu-Medrol 80 mg IV. 5. Provide DVT prophylaxis and GI prophylaxis. Will follow patient. DICTATING PHYSICIAN: KAMILLE DUNBAR MD,NOEMI,MPH [id number] PHY#: [id number] ID: [id number] JOB#: [id number] ACCT: [id number] cc:KAMILLE DUNBAR M.D. > [place]
[2018-03-12] MEDS ORDERED: METHYLPREDNISOLONE INJ 125 MG/2 ML SDV IV SCH (12:30)
[2018-03-12 12:42] LABS: ARTERIAL BLOOD H2CO3 1.24 mmol/L (1.05-1.35); ARTERIAL BLOOD HCO3 26.6 mmol/L (20-26); ARTERIAL BLOOD O2 SATURATION 96.1 % (94-98); ARTERIAL BLOOD PCO2 41.3 mmHg (35-45); ARTERIAL BLOOD PH 7.43 (7.35-7.45); ARTERIAL BLOOD PO2 80.6 mmHg (80-100); ARTERIAL BLOOD TOTAL CO2 27.8 mmol/L (23-27)
[2018-03-12 12:45] LABS: ARTERIAL BLOOD FIO2 40%
--- NOTE | 2018-03-12 13:32 | PDOC TRANSFER SUMMARY ---
General Admission Date/PCP: 03/11/18 00:24 ARTEMIO KAMINSKI MD Transfer Date: 03/12/18 Accepting Facility: [facility] - Transfer Diagnosis (1) Acute respiratory failure Is this a current diagnosis for this admission?: Yes Diagnosis Summary: Currently all stable a (2) COPD with acute exacerbation Is this a current diagnosis for this admission?: Yes Diagnosis Summary: cont curr med (3) Elevated troponin Is this a current diagnosis for this admission?: Yes Diagnosis Summary: Non-ST CT (4) Hyperkalemia Is this a current diagnosis for this admission?: Yes Diagnosis Summary: Currently resolved (5) Tobacco abuse Is this a current diagnosis for this admission?: Yes (6) Type 2 diabetes mellitus Is this a current diagnosis for this admission?: Yes Diagnosis Summary: Is to current medication (7) Hypertension Is this a current diagnosis for this admission?: Yes (8) Hyperlipidemia Is this a current diagnosis for this admission?: Yes (9) Noncompliance Is this a current diagnosis for this admission?: Yes (10) Non-ST elevation CT (NSTEMI) Is this a current diagnosis for this admission?: Yes Diagnosis Summary: Follow-up with the cardiology transfer the patient's to the tertiary center - Transfer Medications Home Medications: Albuterol Sulfate [Proair HFA] 2 puff IH Q4HP PRN 09/06/17 Atorvastatin Calcium [Lipitor 20 mg Tablet] 20 mg PO QHS 09/06/17 Ipratropium/Albuterol Sulfate [Combivent Respimat 20-100 Mcg] 1 puff IH QID Tamsulosin HCl [Flomax 0.4 mg Cap.sr] 0.4 mg PO DAILY 09/06/17 Fluticasone/Umeclidin/Vilanter [Trelegy Ellipta 100-62.5-25] 1 each IH DAILY Fluticasone/Vilanterol [Breo Ellipta 100-25 Mcg INH] 1 each IH DAILY 03/11/18 Ipratropium/Albuterol Sulfate [Iprat-Albut 0.5-3(2.5) Mg/3 Ml] 1 vial IH BIDP PRN 03/11/18 Transfer Medications: Current Medications Acetaminophen (Tylenol 650 Mg Supp) 650 mg [place] Q4HP PRN PRN Reason: FEVER >101 Stop: 04/10/18 00:15 Albuterol/Ipratropium (Duoneb 3 Ml Ampul) 3 ml NEB [id number] [facility] Stop: 04/10/18 07:59 Last Admin: 03/12/18 11:40 Dose: 3 ml Aspirin (Aspirin 300 Mg Rectal Supp) 300 mg [place] DAILY [facility] Stop: 04/10/18 20:29 Last Admin: 03/12/18 10:50 Dose: 300 mg Dextrose (Dextrose Inj 50% Syringe (25 Gm/50 Ml)) 12.5 gm IV PRN PRN; Protocol PRN Reason: FOR BG 50-69 IN ALERT PATIENT Stop: 04/10/18 00:21 Dextrose (Dextrose Inj 50% Syringe (25 Gm/50 Ml)) 25 gm IV PRN PRN; Protocol PRN Reason: PER PROTOCOL Stop: 04/10/18 00:21 Enoxaparin Sodium (Lovenox Inj 100 Mg/1 Ml Disp.Syrin) 95 mg SUBCUT Q12A [facility] Stop: 03/13/18 15:59 Last Admin: 03/12/18 05:26 Dose: 95 mg Famotidine (Pepcid Inj/Pf 20 Mg/2 Ml Sdv) 20 mg IV Q12 [facility] Stop: 04/10/18 09:59 Last Admin: 03/12/18 10:50 Dose: 20 mg Glucagon (Glucagen Inj 1 Mg Vial) 1 mg IM PRN PRN; Protocol PRN Reason: Evaluate for BG < 70 Stop: 04/10/18 00:21 Glucose (Glutose 40% Gel 15 Gm Tube) 15 gm PO PRN PRN; Protocol PRN Reason: FOR BG 50-69 IN ALERT PATIENT Stop: 04/10/18 00:21 Glucose (Glutose 40% Gel 15 Gm Tube) 30 gm PO PRN PRN; Protocol PRN Reason: FOR BG < 50 IN ALERT PATIENT Stop: 04/10/18 00:21 Midazolam HCl (Versed Rtu 50 Mg/100 Ml Premix Bag) 50 mg in 100 mls @ 0 mls/hr IV CONTINUOUS PRN; Protocol; Titrate PRN Reason: THIS MED IS NOT "PRN" Stop: 03/17/18 22:49 Levofloxacin/Dextrose (Levaquin Rtu 750 Mg/D5w 150 Ml Premix) 750 mg in 150 mls @ 100 mls/hr IV QHS [facility] Stop: 03/18/18 21:59 Last Admin: 03/11/18 21:34 Dose: 500 mg/hr, 100 mls/hr Sodium Chloride (Nacl 0.9% 1000 Ml Iv Soln) 1,000 mls @ 75 mls/hr IV CONTINUOUS PRN PRN Reason: THIS MED IS NOT "PRN" Stop: 04/10/18 00:15 Last Admin: 03/12/18 07:02 Dose: 75 mls/hr Propofol (Diprivan Rtu 1000 Mg/100 Ml Inf.Bottle) 1,000 mg in 100 mls @ 0 mls/ hr IV CONTINUOUS PRN; Protocol; Titrate PRN Reason: THIS MED IS NOT "PRN" Stop: 04/10/18 04:07 Last Admin: 03/12/18 07:02 Dose: 17.19 ml/hr, 28.65 mls/hr Insulin Human Lispro (Humalog Insulin 100 Unit/1 Ml 3 Ml Vial) 0 - 12 unit SUBCUT Q6HP PRN; Protocol PRN Reason: PER PROTOCOL Stop: 04/10/18 00:21 Last Admin: 03/12/18 13:10 Dose: 6 units Methylprednisolone Sodium Succinate (Solu-Medrol Inj/Pf 125 Mg/2 Ml Sdv) 80 mg IV Q6 [facility] Stop: 04/11/18 12:29 Last Admin: 03/12/18 13:06 Dose: Not Given Sodium Chloride (Saline Flush 2.5 Ml Monoject Prefil Syrin) 2.5 ml IV Q8 [facility] Stop: 04/10/18 05:59 Last Admin: 03/12/18 13:22 Dose: Not Given - Allergies Allergies/Adverse Reactions: amoxicillin [Amoxicillin] Adverse Reaction (Verified 01/23/18 19:07) Hives Iodinated Contrast- Oral and IV Dye [IV Dye, Iodine Containing] Adverse Reaction (Verified 01/23/18 19:07) Hives Penicillins Adverse Reaction (Verified 01/23/18 19:07) Hives Apricots Adverse Reaction (Mild, Uncoded 01/23/18 19:07) Hives Hospital Course Hospital Course: This is a 52-year-old male's with a significant history of the COPD with the chronic smoker type 2 diabetes noncompliance came to the emergency department because of respiratory distress and patient was intubated and put in the intensive care unit Patient seen by the pulmonary and cardiology Patient's EKG suggest the T-wave inversion in anterior lateral leads with possible ischemia and patient's elevated troponin suggesting non-ST elevations myocardial infections Patient's currently on Lovenox As per discussed with the cardiology wants to transfer the patient to a tertiary center per further cardiac interventions Patient's currently stable to transfer Physical Exam Vital Signs: Temp Pulse Resp BP Pulse Ox 97.0 F 58 L 20 134/74 H 98 03/12/18 08:00 03/12/18 08:08 03/12/18 08:08 03/12/18 08:00 03/12/18 08:08 Intake & Output 03/11/18 03/12/18 03/13/18 06:59 06:59 06:59 Intake Total 1620 1158 Output Total 275 1025 200 Balance -275 595 958 Weight 95.5 kg 97 kg General appearance: PRESENT: no acute distress Head exam: PRESENT: normocephalic Respiratory exam: PRESENT: decreased breath sounds Cardiovascular exam: PRESENT: +S1, +S2 GI/Abdominal exam: PRESENT: normal bowel sounds, soft Neurological exam: PRESENT: other Skin exam: PRESENT: dry Results Laboratory Results: 03/12/18 05:10 03/12/18 05:10 03/11/18 03/11/18 03/11/18 15:20 16:02 23:00 WBC RBC Hgb Hct MCV MCH MCHC RDW Plt Count Seg Neutrophils % Lymphocytes % Monocytes % Eosinophils % Basophils % Absolute Neutrophils Absolute Lymphocytes Absolute Monocytes Absolute Eosinophils Absolute Basophils Carbonic Acid Cancelled HCO3/H2CO3 Ratio Cancelled ABG pH Cancelled ABG pCO2 Cancelled ABG pO2 Cancelled ABG HCO3 Cancelled ABG O2 Saturation Cancelled ABG Base Excess Cancelled FiO2 Cancelled Sodium Potassium 4.5 Chloride Carbon Dioxide Anion Gap BUN Creatinine Est GFR ( Amer) Est GFR (Non-Af Amer) Glucose Lactic Acid 4.3 H Calcium Magnesium Total Bilirubin AST ALT Alkaline Phosphatase Total Protein Albumin Triglycerides 03/11/18 03/12/18 03/12/18 23:00 05:10 05:10 WBC 10.3 RBC 4.51 Hgb 14.9 Hct 43.4 MCV 96 MCH 33.0 MCHC 34.3 RDW 14.7 H Plt Count 134 L Seg Neutrophils % Not Reportable Lymphocytes % Not Reportable Monocytes % Not Reportable Eosinophils % Not Reportable Basophils % Not Reportable Absolute Neutrophils Not Reportable Absolute Lymphocytes Not Reportable Absolute Monocytes Not Reportable Absolute Eosinophils Not Reportable Absolute Basophils Not Reportable Carbonic Acid 1.35 HCO3/H2CO3 Ratio 20:1 ABG pH 7.40 ABG pCO2 44.7 ABG pO2 66.4 L ABG HCO3 27.3 H ABG O2 Saturation 93.2 L ABG Base Excess 2.1 FiO2 45% Sodium 137.4 Potassium 4.4 Chloride 104 Carbon Dioxide 24 Anion Gap 9 BUN 21 H Creatinine 0.82 Est GFR ( Amer) > 60 Est GFR (Non-Af Amer) > 60 Glucose 300 H Lactic Acid Calcium 8.3 L Magnesium 2.2 Total Bilirubin 0.3 AST 8 L ALT 19 L Alkaline Phosphatase 65 Total Protein 5.2 L Albumin 2.9 L Triglycerides 193 H 03/12/18 03/12/18 03/12/18 05:10 06:03 12:20 WBC RBC Hgb Hct MCV MCH MCHC RDW Plt Count Seg Neutrophils % Lymphocytes % Monocytes % Eosinophils % Basophils % Absolute Neutrophils Absolute Lymphocytes Absolute Monocytes Absolute Eosinophils Absolute Basophils Carbonic Acid 1.08 1.24 HCO3/H2CO3 Ratio 20:1 21:1 ABG pH 7.42 7.43 ABG pCO2 35.9 41.3 ABG pO2 139.6 H 80.6 ABG HCO3 22.6 26.6 H ABG O2 Saturation 98.8 H 96.1 ABG Base Excess -1.4 2.0 FiO2 45% 40% Sodium Potassium Chloride Carbon Dioxide Anion Gap BUN Creatinine Est GFR ( Amer) Est GFR (Non-Af Amer) Glucose Lactic Acid 1.5 Calcium Magnesium Total Bilirubin AST ALT Alkaline Phosphatase Total Protein Albumin Triglycerides 03/11/18 03/11/18 03/11/18 04:45 04:45 11:28 Creatine Kinase 80 56 CK-MB (CK-2) 3.14 Troponin I 0.355 03/11/18 03/11/18 03/11/18 11:28 16:02 16:02 Creatine Kinase 59 CK-MB (CK-2) 3.51 3.00 Troponin I 0.395 0.291 03/12/18 10:55 Creatine Kinase CK-MB (CK-2) Troponin I 0.639 Impressions: Chest CT 03/11/18 00:00 IMPRESSION: No infiltrate. No pneumothorax. Chest X-Ray 03/11/18 00:00 IMPRESSION: 1. Stable appearance of the chest. Plan Time Spent: Greater than 30 Minutes - Patient's transported to [facility] for further cardiac interventions and further evaluations Discussed with the patient 's family member regarding the patient's current conditions
[2018-03-12 16:21] VITALS: BP 134/65
--- NOTE | 2018-03-12 20:36 | XCELERA REPORT ---
[address] [address] Transthoracic Echocardiogram Report Name: ADÁN CHEUNG Age: 52 yrs Gender: Male : 1965 Patient Status: Inpatient Patient Location: ICU^603^A Study Date: 03/12/2018 09:28 AM Height: 64 in Weight: 210 lb BSA: 2.0 m2 Procedure: A two-dimensional transthoracic echocardiogram with color flow and Doppler was performed. Study Quality: Technically suboptimal. The study was technically limited with all images being suboptimal in quality. The study was technically difficult with many images being suboptimal in quality. Images were not obtained from all of the standard acoustic windows due to the limited scope of the study. Reason For Study: elevated troponin Ordering Physician: ARTEMIO KAMINSKI Performed By: Kristina Negrete Interpretation Summary The left ventricle is grossly normal size. Probaly normal LV size.No LVH.Ther is hypokibnesis of the anteroseptum and lateral wall.The IV setum and posterior wall contract normally.No true apical chamber views obtained.Cannot comment on Valves bond to poor interogation.Recommend BOB. MMode/2D Measurements & Calculations RVDd: 2.8 cm LVIDd: 4.6 cm FS: 24.8 % Ao root diam: 2.6 cm IVSd: 0.88 cm LVIDs: 3.5 cm EDV(Teich): 99.8 ml Ao root area: 5.4 cm2 LVPWd: 0.87 cm ESV(Teich): 50.7 ml LA dimension: 2.8 cm EF(Teich): 49.1 % Doppler Measurements & Calculations MV E max cornelius: MV P1/2t max cornelius: Ao V2 max: LV V1 max P.9 cm/sec 85.2 cm/sec 147.4 cm/sec 3.0 mmHg MV A max cornelius: MV P1/2t: 65.4 msec Ao max P.7 mmHg LV V1 max: 84.9 cm/sec MVA(P1/2t): 3.4 cm2 86.4 cm/sec MV E/A: 0.95 MV dec slope: 381.8 cm/sec2 MV dec time: 0.23 sec PA V2 max: TR max cornelius: MV P1/2t-pr_phl: 90.6 cm/sec 90.3 cm/sec 65.4 msec PA max PG: TR max P.3 mmHg 3.3 mmHg Left Ventricle The left ventricle is grossly normal size. Probaly normal LV size.No LVH.Ther is hypokibnesis of the anteroseptum and lateral wall.The IV setum and posterior wall contract normally.No true apical chamber views obtained.Cannot comment on Valves bond to poor interogation.Recommend BOB. Effusions There is no pericardial effusion. : ARTEMIO KAMINSKI > Tejal Gentile
== END 2018-03-12 15:36 | disposition short-term general hospital (02) | DRG 208 ==
LOC: ER 22:39 → EH 03-11 00:24 → ICU 03-11 02:30
PROVIDERS: ADMIT Family Medicine; ATTEND Family Medicine
PROC: 5A1945Z Respiratory Ventilation, 24-96 Consecutive Hours (ICD-10-PCS; principal; 2018-03-10)
PROC: 0BH17EZ Insertion of Endotracheal Airway into Trachea, Via Natural or Artificial Opening (ICD-10-PCS; 2018-03-10)
PROC: 3E0F73Z Introduction of Anti-inflammatory into Respiratory Tract, Via Natural or Artificial Opening (ICD-10-PCS; 2018-03-11)
DX: J96.01 Acute respiratory failure with hypoxia (principal); I21.4 Non-ST elevation (NSTEMI) myocardial infarction; J44.1 Chronic obstructive pulmonary disease with (acute) exacerbation; Z78.1 Physical restraint status; E87.5 Hyperkalemia; E11.9 Type 2 diabetes mellitus without complications; I10 Essential (primary) hypertension; E78.00 Pure hypercholesterolemia, unspecified; J44.9 Chronic obstructive pulmonary disease, unspecified; F17.210 Nicotine dependence, cigarettes, uncomplicated; F32.9 Major depressive disorder, single episode, unspecified; Z91.19 Patient's noncompliance with other medical treatment and regimen; Z79.899 Other long term (current) drug therapy; Z88.1 Allergy status to other antibiotic agents; Z91.041 Radiographic dye allergy status; Z88.0 Allergy status to penicillin; Z91.018 Allergy to other foods; Z90.49 Acquired absence of other specified parts of digestive tract; Z79.4 Long term (current) use of insulin; Z79.52 Long term (current) use of systemic steroids
CPT/HCPCS: 36415; 51702; 71045; 71250; 80053; 80307; 81001; 82550; 82553; 82803; 82962; 83605; 83735; 84100; 84132; 84478; 84484; 85025; 87040; 87070; 87086; 87205; 93005; 93010; 93306; 94002; 94003; 99285; J1650; J1815; J1956; J2704; J2920; J3490; J7030; J7620; S0028

== ENCOUNTER 2018-04-18 20:27 | Inpatient (IN) | payer MEDICARE, MEDICAID ==
--- NOTE | 2018-04-18 21:02 | ER Document Report ---
ED General - General TRAVEL OUTSIDE OF THE [place] IN LAST 30 DAYS: No <MART HARRISAl Collazo - Last Filed: 04/19/18 02:15> <FELECIA BARRIOS - Last Filed: 04/19/18 03:02> - General Chief Complaint: Leg Swelling Stated Complaint: FOOT/LEG SWELLING Time Seen by Provider: 04/18/18 21:02 Notes: Patient is a 52-year-old male that presents to the emergency department for chief complaint of leg swelling. Patient states he is noticed some more leg swelling over the last few days, worse on the right compared to the left and he was advised to come to the emergency department to have this evaluated for possible blood clot. He denies prior history of DVT or PE. Denies having any fevers, chills, chest pain, shortness of breath, difficulty breathing, nausea, vomiting, abdominal pain. He states recently had a left heart catheterization, because he was having what he thinks is a dysrhythmia, while he was on the ventilator, but this was negative, he had the left heart cath procedure through the right groin. Past Medical History: CAD, diabetes mellitus, copd, htn, hld Past Surgical History: Left heart catheterization, hernia repair x2 Social History: Admits to smoking cigarettes daily, denies alcohol or drug use. Family History: Reviewed and noncontributory for presenting illness Allergies: Reviewed, see documented allergy list. REVIEW OF SYSTEMS: Unless otherwise stated in this report the patient's positive and negative responses for review of systems for constitutional, eyes, ENT, cardiovascular, respiratory, gastrointestinal, neurological, genitourinary, musculoskeletal, and integumentary systems and related systems to the presenting problem are either as stated in the HPI or were not pertinent or were negative for the symptoms and/or complaints related to the presenting medical problem. PHYSICAL EXAMINATION: Vital signs reviewed, nursing noted reviewed. GENERAL: Obese male and in no acute distress. HEAD: Atraumatic, normocephalic. EYES: Eyes appear normal, extraocular movements intact, sclera anicteric, conjunctiva are normal. ENT: nares patent, oropharynx clear without exudates. Moist mucous membranes. NECK: Normal range of motion, supple without lymphadenopathy LUNGS: Breath sounds clear to auscultation bilaterally and equal. No wheezes rales or rhonchi. HEART: Regular rate and rhythm without murmurs ABDOMEN: Soft, obese, nontender, normoactive bowel sounds. No rebound, guarding , or rigidity. No masses appreciated. EXTREMITIES: Nontender, good range of motion, bilateral lower extremity pitting edema, to the mid tibia on the right, 2+, and 1+ pedal edema on the left. NEUROLOGICAL: No focal neurological deficits. Moves all extremities spontaneously Motor and sensory grossly intact on exam. PSYCH: Normal mood, normal affect. SKIN: Warm, Dry, normal turgor, no rashes or lesions noted on exposed skin (YUDY HARRIS) - Related Data Allergies/Adverse Reactions: amoxicillin [Amoxicillin] Adverse Reaction (Verified 04/18/18 20:33) Hives Iodinated Contrast- Oral and IV Dye [IV Dye, Iodine Containing] Adverse Reaction (Verified 04/18/18 20:33) Hives Penicillins Adverse Reaction (Verified 04/18/18 20:33) Hives Apricots Adverse Reaction (Mild, Uncoded 04/18/18 20:33) Hives Past Medical History - Social History Family History: None, Reviewed & Not Pertinent - Past Medical History Cardiac Medical History: Reports: Hx Hypercholesterolemia, Hx Hypertension Denies: Hx Coronary Artery Disease, Hx Heart Attack Pulmonary Medical History: Reports: Hx Asthma, Hx Bronchitis, Hx COPD, Hx Pneumonia Denies: Hx Tuberculosis Neurological Medical History: Denies: Hx Cerebrovascular Accident, Hx Seizures Endocrine Medical History: Reports: Hx Diabetes Mellitus Type 2 Renal/ Medical History: Denies: Hx Peritoneal Dialysis Musculoskeletal Medical History: Denies Hx Arthritis Psychiatric Medical History: Reports: Hx Depression Past Surgical History: Reports: Hx Abdominal Surgery - herniax3, Hx Cholecystectomy, Hx Orthopedic Surgery - R foot - Immunizations Hx Diphtheria, Pertussis, Tetanus Vaccination: Yes Hx Pneumococcal Vaccination: 04/20/13 <YUDY HARRIS - Last Filed: 04/19/18 02:15> - Social History Smoking Status: Current Every Day Smoker Frequency of alcohol use: None Drug Abuse: None Family History: Reviewed & Not Pertinent <FELECIA BARRIOS - Last Filed: 04/19/18 03:02> - Vital signs Vitals: Temp Pulse Resp BP Pulse Ox 97.8 F 94 24 H 142/70 H 89 L 04/18/18 20:33 04/18/18 20:33 04/18/18 20:33 04/18/18 20:33 04/18/18 20:33 Course - Laboratory Result Diagrams: 04/18/18 21:01 04/18/18 21:01 <YUDY HARRIS - Last Filed: 04/19/18 02:15> - Laboratory Result Diagrams: 04/18/18 21:01 04/18/18 21:01 <FELECIA BARRIOS - Last Filed: 04/19/18 03:02> - Re-evaluation Re-evalutation: Patient seen and examined vital signs reviewed. Patint was evaluated and treated as appropriate for the patient's presenting symptoms and complaint, with consideration of any critical or life threatening conditions that may be associated with their obtained history and exam as noted above. Duplex ultrasound imaging was performed on both lower extremities, and was negative for DVT The patient was re-evaluated and his pulse ox had dropped to 83%, patient does smoke rather frequently, and states he has COPD, he states he feels fine and denies having any shortness of breath. However given that this is rather low, I went ahead and give the patient to DuoNeb breathing treatments to see if he could improve his pulse ox. Patient will likely need oxygen therapy, and if I can get him improved and follow-up with his primary care physician as he may need home oxygen therapy and need to be qualified for this in the office. Patient received DuoNeb breathing treatments, however this did not improve his pulse ox, dropped again down into the low 80s, and actually dropped down to 77% . This point I do not feel it is in the patient's best interest to be discharged home, will initiate a workup for his hypoxia, including chest x-ray, EKG, blood work, troponin. CTA chest was initially ordered however patient reports adverse reaction to IVP dye stating he had a bad rash last time, give patient recently had mechanical ventilation and is currently hypoxic, the risk of anaphylactoid reaction to contrast dye outweighed benefit and V/Q scan was ordered instead to evaluate for PE. This was discussed with my colleague Dr. Barrios who will follow-up on results. (YUDY HARRIS) 04/19/18 03:01 Reevaluation patient does still have some scattered wheezing. I will order repeat breathing treatment. I ordered a dose Solu-Medrol for him. His VQ scan is negative. I have ordered a venous blood gas. I suspect this most likely is a COPD exacerbation. Due to his ongoing hypoxemia if he is taken off oxygen he does require admission. I did speak with Dr. Arlyn Godinez who is covering for Dr. Hernandez. He agrees to accept the patient for admission. He is not currently in any distress looks very comfortable. I do not suspect he will require intubation. Dictation of this chart was performed using voice recognition software; therefore, there may be some unintended grammatical errors. 04/19/18 03:02 (FELECIA BARRIOS) - Vital Signs Vital signs: Temp Pulse Resp BP Pulse Ox 97.5 F 87 14 152/80 H 83 L 04/18/18 23:03 04/18/18 23:03 04/18/18 23:03 04/18/18 23:03 04/18/18 23:03 - Laboratory Laboratory results interpreted by me: 04/18/18 04/18/18 21:01 21:01 RBC 4.34 L RDW 15.2 H Carbon Dioxide 32 H Glucose 135 H Direct Bilirubin 0.5 H - EKG Interpretation by Me Additional EKG results interpreted by me: EKG demonstrates sinus rhythm with a ventricular rate of 83 bpm, borderline right axis deviation, normal intervals, there is baseline artifact in this EKG, but in the setting no ST changes noted. Compared with prior EKG from 03/12/2018. (YUDY HARRIS) Critical Care Note - Critical Care Note Total time excluding time spent on procedures (mins): 40 <YUDY HARRIS - Last Filed: 04/19/18 02:15> <FELECIA BARRIOS - Last Filed: 04/19/18 03:02> - Critical Care Note Comments: Critical care time 40 exclusive from separate billable procedures for a patient requiring complex medical decision making, and high potential for clinical deterioration. In a patient with significant hypoxia requiring intervention. Time spent obtaining history from patient or surrogate, discussions with consultants, development of treatment plan with patient or surrogate, evaluation of patient's response to treatment, examination of patient , ordering and performing treatments and interventions, ordering and review of laboratory studies, re-evaluation of patient's condition, ordering and review of radiographic studies and review of old charts (YUDY HARRIS) Discharge <YUDY HARRIS - Last Filed: 04/19/18 02:15> - Discharge Admitting Provider: Hernandez Unit Admitted: Telemetry <FELECIA BARRIOS - Last Filed: 04/19/18 03:02> - Discharge Clinical Impression: Peripheral edema, Hypoxia, COPD exacerbation Condition: Stable Disposition: ADMITTED OBSERVATION
[2018-04-18] MEDS ORDERED: IPRATROPIUM/ALBUTEROL 0.5-2.5 MG/3 ML AMPUL NEB ONE (23:08)
--- NOTE | 2018-04-19 00:09 | RADIOLOGY REPORT (SQ) ---
EXAM DESCRIPTION: XR CHEST 1 VIEW COMPLETED DATE/TME: 04/18/2018 23:40 CLINICAL HISTORY: 52 years, Male, hypoxia COMPARISON: 03/11/2018 NUMBER OF VIEWS: One TECHNIQUE: AP view the chest LIMITATIONS: None. FINDINGS: The lungs are clear. The heart is at the upper limit of normal in size. There is no pneumothorax or pleural effusion. There is no acute fracture IMPRESSION: No acute cardiopulmonary abnormality 2010 [employer]- All Rights Reserved
[2018-04-19 00:15] LABS: ALANINE AMINOTRANSFERASE 24 U/L (21-72); ALKALINE PHOSPHATASE 78 U/L (38-126); ANION GAP 6 (5-19); ASPARTATE AMINO TRANSFERASE 22 U/L (17-59); BILIRUBIN,DIRECT 0.5 mg/dL (0.0-0.4); BILIRUBIN,TOTAL 0.5 mg/dL (0.2-1.3); BLOOD UREA NITROGEN 19 mg/dL (7-20); CALCIUM 9.8 mg/dL (8.4-10.2); CARBON DIOXIDE 32 mmol/L (22-30); CHLORIDE 100 mmol/L (98-107); GLUCOSE 135 mg/dL (75-110); POTASSIUM 4.6 mmol/L (3.6-5.0); SODIUM 138.4 mmol/L (137-145); TOTAL PROTEIN 6.5 g/dL (6.3-8.2)
[2018-04-19 00:27] LABS: NT PRO BNP 279 pg/mL (5-900)
[2018-04-19 00:32] LABS: TROPONIN I < 0.012 ng/mL
[2018-04-19 00:42] LABS: ABSOLUTE BASOPHILS # (AUTO) 0.1 10^3/uL (0.0-0.2); ABSOLUTE EOSINOPHILS # (AUTO) 0.1 10^3/uL (0.0-0.6); ABSOLUTE LYMPHOCYTES (AUTO) 1.9 10^3/uL (0.5-4.7); ABSOLUTE MONOCYTES (AUTO) 0.5 10^3/uL (0.1-1.4); ABSOLUTE NEUT (AUTO) 6.4 10^3/uL (1.7-8.2); BASOPHILS % (AUTO) 0.7 % (0-2); EOSINOPHILS % (AUTO) 0.8 % (0-6); HEMATOCRIT 41.9 % (37.9-51.0); HEMOGLOBIN 14.3 g/dL (13.5-17.0); LYMPHOCYTES % (AUTO) 21.5 % (13-45); MEAN CORPUSCULAR HEMOGLOBIN 32.9 pg (27.0-33.4); MEAN CORPUSCULAR HGB CONC 34.2 g/dL (32.0-36.0); MEAN CORPUSCULAR VOLUME 96 fl (80-97); PLATELET COUNT 167 10^3/uL (150-450); RED BLOOD COUNT 4.34 10^6/uL (4.35-5.55); RED CELL DISTRIBUTION WIDTH 15.2 % (11.5-14.0); TOTAL CELLS COUNTED % (AUTO) 100 %
--- NOTE | 2018-04-19 02:43 | RADIOLOGY REPORT (SQ) ---
EXAM DESCRIPTION: NM LUNG VENTILATION PERFUSION COMPLETED DATE/TME: 04/19/2018 00:30 CLINICAL HISTORY: 52 years Male, dyspnea, hypoxemia COMPARISON: CR, same day. RADIONUCLIDE AND DOSE: 5.37-mCi of Tc99m MAA, IV. 32.0-mCi of Tc99m DTPA, aerosal. LIMITATIONS: Limited ventilation seal. Findings No perfusion defect. Mild diffuse nonspecific heterogeneities of ventilation scan, anterior and posterior views only. No evidence of pulmonary embolus. Impression No acute findings.
[2018-04-19] MEDS ORDERED: METHYLPREDNISOLONE INJ 125 MG/2 ML SDV IV ONE ×2 (02:57→07:30)
[2018-04-19 03:59] LABS: VENOUS BLOOD BASE EXCESS 2.4 mmol/L; VENOUS BLOOD HCO3 28.8 mmol/L (20-32); VENOUS BLOOD PCO2 50.9 mmHg (35-63); VENOUS BLOOD PH 7.37 (7.30-7.42)
[2018-04-19] MEDS ORDERED: DEXTROSE 40% GEL 15 GM TUBE X 2 PO PRN (07:26)
[2018-04-19] MEDS ORDERED: DEXTROSE 40% GEL 15 GM TUBE PO PRN (07:26)
[2018-04-19] MEDS ORDERED: DEXTROSE 50%-WATER SYRINGE 12.5 GM/25 ML DOSE IV PRN (07:26)
[2018-04-19] MEDS ORDERED: GLUCAGON,HUMAN RECOMB 1 MG INJ IM PRN (07:26)
[2018-04-19] MEDS ORDERED: DEXTROSE 50%-WATER SYRINGE 25 GM/50 ML DOSE IV PRN (07:26)
[2018-04-19] MEDS: NORMAL SALINE 1000 ML 1,000 ML IV PRN (07:50)
[2018-04-19] MEDS: IPRATROPIUM/ALBUTEROL 0.5-2.5 MG/3 ML AMPUL NEB SCH ×4 (08:10→19:52)
[2018-04-19] MEDS: INSULIN LISPRO 100 UNIT/ML 3 ML VIAL SUBCUT PRN ×4 (08:46→21:30)
[2018-04-19] MEDS ORDERED: METHYLPREDNISOLONE INJ 125 MG/2 ML SDV IV SCH (10:00)
[2018-04-19] MEDS: LANSOPRAZOLE 30 MG TAB.RAP.DR PO SCH (11:25)
[2018-04-19] MEDS: METHYLPREDNISOLONE INJ 125 MG/2 ML SDV IV SCH ×2 (11:35→17:32)
[2018-04-19] MEDS: NICOTINE 14 MG/24 HR PATCH.TD24 TD SCH (11:35)
--- NOTE | 2018-04-19 12:34 | XCELERA REPORT ---
[address] [address] Lower Extremity Venous Evaluation Procedure: Color flow and duplex imaging bilaterally of the veins of the lower extremities as well as the Common Femoral veins. Right Sided Venous Evaluation Lucent,spaces in subcutaneous tissues of the leg, suggesting edema, noted. Normal vessel filling wall to wall, compression and augmentation as well as Colour flow down to the infrageniculate veins. Left Sided Venous Evaluation Lucent,spaces in subcutaneous tissues of the leg, suggesting edema, noted. Normal vessel filling wall to wall, compression and augmentation as well as Colour flow down to the infrageniculate veins. Interpretation Summary No duplex evidence of DVT or obstruction in the bilateral lower extremities. Severe subcutaneous edema. Name: ADÁN CHEUNG Age: 52 yrs Gender: Male : 1965 Patient Status: Emergency Patient Location: ER Study Date: 04/18/2018 10:28 PM Reason For Study: BILATERAL LE EDEMA, R>L Ordering Physician: YUDY HARRIS Performed By: Sydnee Hardin : YUDY HARRIS > Mark Kearney
[2018-04-19] MEDS ORDERED: ASPIRIN 81 MG TABLET, ENT COATED PO ONE (16:00)
[2018-04-19] MEDS ORDERED: DILTIAZEM HCL 120 MG CAP.SR.24H PO ONE (16:00)
--- NOTE | 2018-04-19 16:53 | EKG REPORT ---
SEVERITY:- OTHERWISE NORMAL ECG - SINUS RHYTHM BORDERLINE RIGHT AXIS DEVIATION : Confirmed by: Tejal Gentile MD 19-Apr-2018 16:53:06
[2018-04-19] MEDS: TAMSULOSIN HCL 0.4 MG CAP.SR.24H PO SCH (17:32)
[2018-04-19] MEDS: ATORVASTATIN CALCIUM 80 MG TABLET PO SCH (21:26)
[2018-04-20] MEDS: IPRATROPIUM/ALBUTEROL 0.5-2.5 MG/3 ML AMPUL NEB SCH ×7 (00:15→23:42)
[2018-04-20] MEDS: METHYLPREDNISOLONE INJ 125 MG/2 ML SDV IV SCH (02:50)
[2018-04-20] MEDS: NORMAL SALINE 1000 ML 1,000 ML IV PRN (06:04)
[2018-04-20] MEDS: INSULIN LISPRO 100 UNIT/ML 3 ML VIAL SUBCUT PRN ×4 (06:15→22:26)
--- NOTE | 2018-04-20 07:58 | Physician Advisory Note ---
Physician Advisor ProgressNote .: Pursuant to the plan for [facility], I have reviewed the medical record for this patient. Physician Advisor Statement: Please consider documenting, if you agree: 1. Whether COPD exacerbation dx is ruled out; or if not ruled out, please state all the findings that support this dx ( ED notes report no SOB, no cough or sputum ...) 2. Most likely cause(s) of persistent hypoxemia. 3. Medical necessity: what concerns attending about this pt still - why he can 't just be sent home with Rx for O2.... Status: Medicare pt w/recent heart cath (via Rt groin) & hospitalization requiring ventilator & transfer to [facility], underlying CAD, reported possible dysrhythmia, possible underlying chronic ___ type CHF given nurse report that he was supposed to be sent home with Rx for Lasix; also DM type 2, COPD, HTN, HLD, continued tobacco abuse. - (Interestingly, when he had called EMS on 03/11/18 complaining of "some difficulty breathing", they found him "blandon & almost apneic", then apneic & unresponsiive, "with very tight lung dickinson with poor air movement" - Which makes one think he may not show much as far as c/o's or sx until he is in extremis.) He required intubation & ventilation and was sent to [facility] next day due to ant-lat NSTEMI with railcar mechanic recommending procedure not available at [facility]. - ECHO done here 03/12/18 but very poor views, not able to comment on syst/ diast fn or possible pulm hypertension. Came in 04/18/18 w/leg swelling R>L, found to have hypoxemia as low as 77% on RA which persisted despite Duonebs, though with few reported symptoms. After Duoneb, wheezing audible (which could indicate lungs were too tight to evidence wheezing intially). U/S & V/Q neg. Since presentation this time, pt has been tx'd w/q4hr Duonebs, O2, NS @50, & high dose Solumedrol q8h - & continues persistently hypoxemic w/sats 91-95% on 2L O2 (hypoxemia signifiicantly worse than documented during his last admission) . - This AM, attending is not d/c'ing pt, but instead is showing evidence of continued concerns, consulting Dr. Juarez for further eval given persistent hypoxemia of unclear cause despite appropriate tx for possible COPD exac. Has already required 2 MNs in hospital. Appropriate for Inpateint status. Thanks! CK
[2018-04-20] MEDS ORDERED: METHYLPREDNISOLONE INJ 125 MG/2 ML SDV IV SCH (08:20)
[2018-04-20] MEDS: NICOTINE 14 MG/24 HR PATCH.TD24 TD SCH (09:50)
[2018-04-20] MEDS: ASPIRIN 81 MG TABLET, ENT COATED PO SCH (09:51)
[2018-04-20] MEDS: LANSOPRAZOLE 30 MG TAB.RAP.DR PO SCH (09:51)
[2018-04-20] MEDS: INSULIN GLARGINE,HUM.REC.ANLOG 1,000 UNIT/10 ML UNIT SUBCUT SCH ×2 (09:52→22:27)
[2018-04-20] MEDS: POLYETHYLENE GLYCOL 3350 POWDER 17 GM/1 PACKET PO SCH (09:52)
[2018-04-20] MEDS ORDERED: METHYLPREDNISOLONE INJ 40 MG/1 ML SDV IV SCH (10:00)
--- NOTE | 2018-04-20 12:27 | PDOC PROGRESS REPORT ---
Subjective Progress Note for:: 04/20/18 Subjective:: Patient was admitted because of the leg swelling and the shortness of the breath patient's VQ scan and ultrasound of the leg is all negative Recently admitting in the [facility] underwent for cardiac cath and according to the patient was all stable Patient still continues to smoke Significant history of the COPD Patient's denied any chest pain denied any shortness of the breath currently not to do nasal cannula Reason For Visit: COPD EXACERBATION,HYPOXIA,PERIPHERAL EDEMA Physical Exam Vital Signs: Temp Pulse Resp BP Pulse Ox 97.8 F 72 18 103/58 L 92 04/20/18 08:00 04/20/18 08:00 04/20/18 08:00 04/20/18 08:00 04/20/18 08:00 Intake & Output 04/19/18 04/20/18 04/21/18 06:59 06:59 06:59 Intake Total 2736 Output Total 1861 Balance 875 Weight 86.2 kg General appearance: PRESENT: no acute distress, well-developed, well-nourished Head exam: PRESENT: atraumatic, normocephalic Eye exam: PRESENT: conjunctiva pink, EOMI, PERRLA. ABSENT: scleral icterus Ear exam: PRESENT: normal external ear exam Mouth exam: PRESENT: moist, tongue midline Neck exam: PRESENT: full ROM. ABSENT: carotid bruit, JVD, lymphadenopathy, thyromegaly Respiratory exam: PRESENT: clear to auscultation allyson Cardiovascular exam: PRESENT: RRR. ABSENT: diastolic murmur, rubs, systolic murmur Pulses: PRESENT: normal dorsalis pedis pul, +2 pedal pulses bilateral Vascular exam: PRESENT: normal capillary refill GI/Abdominal exam: PRESENT: normal bowel sounds, soft. ABSENT: distended, guarding, mass, organolmegaly, rebound, tenderness Rectal exam: PRESENT: deferred Extremities exam: ABSENT: pedal edema Musculoskeletal exam: PRESENT: ambulatory Neurological exam: PRESENT: alert, awake, oriented to person, oriented to place , oriented to time, oriented to situation, CN II-XII grossly intact. ABSENT: motor sensory deficit Psychiatric exam: PRESENT: appropriate affect, normal mood. ABSENT: homicidal ideation, suicidal ideation Skin exam: PRESENT: dry, intact, warm. ABSENT: cyanosis, rash Results Impressions: Chest X-Ray 04/18/18 23:40 IMPRESSION: No acute cardiopulmonary abnormality 2010 [employer]- All Rights Reserved Assessment & Plan - Diagnosis (1) COPD exacerbation Is this a current diagnosis for this admission?: Yes Plan: Reduce the IV steroid continues to current medications (2) Hypoxia Is this a current diagnosis for this admission?: Yes Plan: Due to the COPD continues to tolerate her nasal cannula consult the pulmonary (3) Peripheral edema Is this a current diagnosis for this admission?: Yes Plan: Currently all resolvedMost likely underlying pulmonary hypertension's (4) Hypertension Qualifiers: Hypertension type: essential hypertension Qualified Code(s): I10 - Essential (primary) hypertension Is this a current diagnosis for this admission?: Yes Plan: Currently all stable (6) Tobacco abuse Is this a current diagnosis for this admission?: Yes (7) Type 2 diabetes mellitus Qualifiers: Diabetes mellitus [facility] insulin use: without lobsterman use Diabetes mellitus complication status: with unspecified complications Qualified Code(s) : E11.8 - Type 2 diabetes mellitus with unspecified complications Is this a current diagnosis for this admission?: Yes Plan: Continues to sliding-scale - Time Time Spent with patient: 15-24 minutes Medications reviewed and adjusted accordingly: Yes Anticipated discharge: Home Within: within 24 hours - Inpatient Certification Medical Necessity: Need Close Monitoring Due to Risk of Patient Decompensation Post Hospital Care: D/C Domestic Travel Consultant Documentation - Plan Summary Plan Summary: See other MD order
[2018-04-20] MEDS: DILTIAZEM HCL 120 MG CAP.SR.24H PO SCH (13:29)
[2018-04-20] MEDS ORDERED: ACETAMINOPHEN 325 MG TABLET PO PRN (15:38)
[2018-04-20] MEDS: TAMSULOSIN HCL 0.4 MG CAP.SR.24H PO SCH (15:59)
[2018-04-20] MEDS ORDERED: LEVOFLOXACIN 500 MG TABLET PO SCH (22:00)
[2018-04-20] MEDS: TIOTROPIUM BROMIDE DPI 5 CAP/KIT (18 MCG/CAP) IH SCH (22:22)
[2018-04-20] MEDS: METHYLPREDNISOLONE INJ 40 MG/1 ML SDV IV SCH (22:24)
[2018-04-20] MEDS: ATORVASTATIN CALCIUM 80 MG TABLET PO SCH (22:25)
[2018-04-20] MEDS: FLUTICASONE/SALMETEROL DISKUS 250-50 MCG/DOSE IH SCH (22:28)
[2018-04-21] MEDS: IPRATROPIUM/ALBUTEROL 0.5-2.5 MG/3 ML AMPUL NEB SCH ×3 (04:17→12:31)
[2018-04-21 06:15] LABS: ABSOLUTE LYMPHOCYTES (AUTO) 0.6 10^3/uL (0.5-4.7); ABSOLUTE MONOCYTES (AUTO) 0.3 10^3/uL (0.1-1.4); ABSOLUTE NEUT (AUTO) 10.6 10^3/uL (1.7-8.2); BASOPHILS % (AUTO) 0.1 % (0-2); HEMATOCRIT 40.9 % (37.9-51.0); HEMOGLOBIN 13.8 g/dL (13.5-17.0); LYMPHOCYTES % (AUTO) 5.1 % (13-45); MEAN CORPUSCULAR HEMOGLOBIN 32.5 pg (27.0-33.4); MEAN CORPUSCULAR HGB CONC 33.7 g/dL (32.0-36.0); MEAN CORPUSCULAR VOLUME 97 fl (80-97); MONOCYTES % (AUTO) 2.4 % (3-13); PLATELET COUNT 169 10^3/uL (150-450); RED BLOOD COUNT 4.24 10^6/uL (4.35-5.55); RED CELL DISTRIBUTION WIDTH 14.7 % (11.5-14.0); SEGMENTED NEUTROPHILS % (AUTO) 92.4 % (42-78); TOTAL CELLS COUNTED % (AUTO) 100 %; WHITE BLOOD COUNT 11.4 10^3/uL (4.0-10.5)
[2018-04-21] MEDS: INSULIN LISPRO 100 UNIT/ML 3 ML VIAL SUBCUT PRN (06:39)
[2018-04-21 06:52] LABS: ANION GAP 12 (5-19); BLOOD UREA NITROGEN 38 mg/dL (7-20); CARBON DIOXIDE 25 mmol/L (22-30); CHLORIDE 100 mmol/L (98-107); GLUCOSE 302 mg/dL (75-110); POTASSIUM 4.8 mmol/L (3.6-5.0); SODIUM 136.5 mmol/L (137-145)
[2018-04-21] MEDS: FLUTICASONE/SALMETEROL DISKUS 250-50 MCG/DOSE IH SCH (10:23)
[2018-04-21] MEDS: TIOTROPIUM BROMIDE DPI 5 CAP/KIT (18 MCG/CAP) IH SCH (10:24)
[2018-04-21] MEDS: POLYETHYLENE GLYCOL 3350 POWDER 17 GM/1 PACKET PO SCH (10:25)
[2018-04-21] MEDS: DILTIAZEM HCL 120 MG CAP.SR.24H PO SCH (10:26)
[2018-04-21] MEDS: ASPIRIN 81 MG TABLET, ENT COATED PO SCH (10:27)
[2018-04-21] MEDS: LANSOPRAZOLE 30 MG TAB.RAP.DR PO SCH (10:28)
[2018-04-21] MEDS: METHYLPREDNISOLONE INJ 40 MG/1 ML SDV IV SCH (10:30)
[2018-04-21] MEDS: INSULIN GLARGINE,HUM.REC.ANLOG 1,000 UNIT/10 ML UNIT SUBCUT SCH (10:35)
[2018-04-21] MEDS: NICOTINE 14 MG/24 HR PATCH.TD24 TD SCH (10:42)
--- NOTE | 2018-04-21 12:43 | CONSULTATION REPORT E ---
Consultation Report NAME: ADÁN CHEUNG : 1965 AGE: 52Y DATE: 04/20/2018 409 A TO: KAMILLE DUNBAR M.D. FROM: ARTEMIO KAMINSKI M.D. Requesting Physician HISTORY OF PRESENT ILLNESS: The patient is a 52-year-old male who came in with severe COPD/asthma exacerbation. The patient also complained that he has swelling in the right leg for the last 3-4 days. Has been coughing yellow-green phlegm for the last 3-4 days. Condition worsened. Thus, the patient went to the emergency room and subsequently endotracheally intubated and mechanically ventilated. PAST MEDICAL HISTORY: 1. CAD. 2. Diabetes mellitus. 3. COPD. 4. Asthma. 5. Hypertension. 6. Hyperlipidemia. PAST SURGICAL HISTORY: 1. Left heart cath last month at [facility] and normal coronaries. 2. Hernia repair x2. SOCIAL HISTORY: He smokes daily. Denies alcohol or illicit drug use. FAMILY HISTORY: Reviewed and noncontributory. ALLERGIES: contrast, penicilin, amoxicilin. REVIEW OF SYSTEMS: CONSTITUTIONAL: No fever or chills. EYES: No jaundice or pallor. EARS, NOSE, AND THROAT: No ear drainage. CHEST AND LUNGS: No wheezing. No rhonchi. No coarse crackles. No shortness of breath and coughing with yellow-green phlegm. CARDIOVASCULAR: Excessive chest pain status post cardiac cath with normal coronaries. History of hypertension. GASTROINTESTINAL: No nausea, vomiting, or diarrhea. EXTREMITIES: Swelling right lower leg. Has an ultrasound of lower extremities showing no evidence of DVT. Past impression of severe subcutaneous edema. PHYSICAL EXAMINATION: GENERAL: The patient awake, alert, coherent, oriented x3. VITAL SIGNS: Temperature is 97.6, with a T max of 98.5, the heart rate of 57, blood pressure is 113/63, respiratory rate 18, saturation is 93% on 2 L nasal cannula. EYES: No jaundice or pallor. EARS, NOSE, AND THROAT: No ear drainage noted. No nasal discharge. HEAD AND NECK: No scalp swelling. No neck tenderness. CHEST AND LUNGS: No wheezing. No rhonchi. Coarse crackles. CARDIOVASCULAR: S1 and S2 distinct. No murmur. Regular rate and rhythm. ABDOMEN: Flabby. Positive bowel sounds. Soft, nondistended, nontender. EXTREMITIES: No joint swelling. No cellulitis. LABORATORY DATA: CBC done 2 days ago showed a white count of 9. Hemoglobin is 14.3, hematocrit 31.9. Platelet count is 167. Chemistry done on April 18 showed sodium is 138, potassium is 4.6, chloride 100, CO2 is 32, BUN is 19, creatinine is 0.86, blood glucose 135, and calcium is 9.8. Total bilirubin is 0.5, bilirubin 0.5. SGOT is 22, SGPT 34, alkaline phosphatase 8, total protein 6.5, albumin 4. IMAGING STUDIES: There is some mild cardiomegaly. No pleural effusion on the left side. Mild haziness in the right lower lung base suggestive of pulmonary edema, and right lower lung infection cannot be completely excluded. ASSESSMENT: 1.COPD/asthma - very severe, with severe acute exacerbation. 2. Bronchitis. PLAN AND RECOMMENDATIONS: 1. Will start the patient on Advair 250/50 mcg 1 puff b.i.d. 2. Start the patient on Spiriva 1 capsule daily. 3. Albuterol inhaler as needed every 4-6 hours. 4. Will consider oral antibiotics.- levaquin 500 mg tab po daily. DICTATING PHYSICIAN: KAMILLE DUNBAR MD,NOEMI,MPH [id number] PHY#: [id number] ID: [id number] JOB#: [id number] ACCT: [id number] cc:KAMILLE DUNBAR M.D. > MTDD
[2018-04-21 13:01] VITALS: BP 113/63
--- NOTE | 2018-04-21 17:13 | PDOC DISCHARGE SUMMARY ---
General - Admit/Disc Date/PCP Admission Date/Primary Care Provider: 04/20/18 13:46 ARTEMIO KAMINSKI MD Discharge Date: 04/21/18 - Discharge Diagnosis (1) COPD exacerbation Is this a current diagnosis for this admission?: Yes Summary: resolving (2) Hypoxia Is this a current diagnosis for this admission?: Yes Summary: on 2 lit o2 (3) Peripheral edema Is this a current diagnosis for this admission?: Yes Summary: resolved (4) Hypertension Is this a current diagnosis for this admission?: Yes Summary: stable (6) Tobacco abuse Is this a current diagnosis for this admission?: Yes Summary: stable (7) Type 2 diabetes mellitus Is this a current diagnosis for this admission?: Yes Summary: stable - Additional Information Resuscitation Status: Full Code Discharge Diet: Diabetic Discharge Activity: Activity As Tolerated Prescriptions: Fluticasone/Salmeterol [Advair 250-50 Diskus 14 Dose/Diskus] 1 inh IH Q12 #1 inhaler Insulin Glargine,Hum.rec.anlog [Lantus Insulin 100 Unit/1 ml 10 ml] 36 unit SUBCUT Q12 #1 unit Levofloxacin [Levaquin 500 mg Tablet] 500 mg PO QHS #7 tablet Prednisone 20 mg PO DAILY #12 tablet Tiotropium [place] [Spiriva Handihaler 5 Cap/Kit (18 Mcg/Cap)] 1 cap IH DAILY # 1 kit Home Medications: Albuterol Sulfate [Ventolin Hfa] 2 puff IH Q4HP PRN 04/19/18 Aspirin [Adult Low Dose Aspirin EC] 81 mg PO DAILY 04/19/18 Atorvastatin Calcium [Lipitor 80 mg Tablet] 80 mg PO QHS 04/19/18 Diltiazem HCl [Cardizem Cd 120 mg Capsule] 120 mg PO DAILY 04/19/18 Ipratropium/Albuterol Sulfate [Duoneb 3 ml Ampul] 3 ml NEB BIDP PRN 04/19/18 Nicotine [Nicoderm 14 mg/24 Hr Transdermal Patch] 1 patch TD DAILY 04/19/18 Polyethylene Glycol 3350 [Miralax Powder 17 gm/Packet] 17 gm PO DAILY 04/19/18 Tamsulosin HCl [Flomax 0.4 mg Cap.sr] 0.4 mg PO DAILY 04/19/18 Fluticasone/Salmeterol [Advair 250-50 Diskus 14 Dose/Diskus] 1 inh IH Q12 #1 inhaler 04/21/18 Insulin Glargine,Hum.rec.anlog [Lantus Insulin 100 Unit/1 ml 10 ml] 36 unit SUBCUT Q12 #1 unit 04/21/18 Levofloxacin [Levaquin 500 mg Tablet] 500 mg PO QHS #7 tablet 04/21/18 Prednisone 20 mg PO DAILY #12 tablet 04/21/18 Tiotropium [place] [Spiriva Handihaler 5 Cap/Kit (18 Mcg/Cap)] 1 cap IH DAILY # 1 kit 04/21/18 History of Present Illness History of Present Illness: ADÁN CHEUNG is a 52 year old male pt admitted for copd and leg swelling pt cont smoke and non complince Hospital Course Hospital Course: pt admitted for copd acute excerbtion and leg swelling pt v/q scan and dolller lower ext all neg pt is cont smoke pt also non complince pt 2 sat on room air is 85 and need 2 lit nasal canula pt seen by pulmonary ans s/o f/u out pt clinic pt want to go home and arrange home o2 and po steroid and po antibiotics pt jessie walk and back to bsee line Physical Exam Vital Signs: Temp Pulse Resp BP Pulse Ox 98.3 F 59 L 18 113/63 97 04/21/18 12:56 04/21/18 12:56 04/21/18 12:56 04/21/18 12:56 04/21/18 12:56 Intake & Output 04/20/18 04/21/18 04/22/18 06:59 06:59 06:59 Intake Total 1998 Output Total 800 Balance 1198 Weight 89.7 kg General appearance: PRESENT: no acute distress, well-developed, well-nourished Head exam: PRESENT: atraumatic, normocephalic Eye exam: PRESENT: conjunctiva pink, EOMI, PERRLA. ABSENT: scleral icterus Ear exam: PRESENT: normal external ear exam Mouth exam: PRESENT: moist, tongue midline Neck exam: PRESENT: full ROM. ABSENT: carotid bruit, JVD, lymphadenopathy, thyromegaly Respiratory exam: PRESENT: clear to auscultation allyson Cardiovascular exam: PRESENT: RRR. ABSENT: diastolic murmur, rubs, systolic murmur Pulses: PRESENT: normal dorsalis pedis pul, +2 pedal pulses bilateral Vascular exam: PRESENT: normal capillary refill GI/Abdominal exam: PRESENT: normal bowel sounds, soft. ABSENT: distended, guarding, mass, organolmegaly, rebound, tenderness Rectal exam: PRESENT: deferred Extremities exam: ABSENT: pedal edema Musculoskeletal exam: PRESENT: ambulatory Neurological exam: PRESENT: alert, awake, oriented to person, oriented to place , oriented to time, oriented to situation, CN II-XII grossly intact. ABSENT: motor sensory deficit Psychiatric exam: PRESENT: appropriate affect, normal mood. ABSENT: homicidal ideation, suicidal ideation Skin exam: PRESENT: dry, intact, warm. ABSENT: cyanosis, rash Results Laboratory Results: 04/21/18 05:16 04/21/18 05:16 04/21/18 04/21/18 05:16 05:16 WBC 11.4 H RBC 4.24 L Hgb 13.8 Hct 40.9 MCV 97 MCH 32.5 MCHC 33.7 RDW 14.7 H Plt Count 169 Seg Neutrophils % 92.4 H Lymphocytes % 5.1 L Monocytes % 2.4 L Eosinophils % 0.0 Basophils % 0.1 Absolute Neutrophils 10.6 H Absolute Lymphocytes 0.6 Absolute Monocytes 0.3 Absolute Eosinophils 0.0 Absolute Basophils 0.0 Sodium 136.5 L Potassium 4.8 Chloride 100 Carbon Dioxide 25 Anion Gap 12 BUN 38 H Creatinine 0.98 Est GFR ( Amer) > 60 Est GFR (Non-Af Amer) > 60 Glucose 302 H Calcium 9.0 Impressions: Chest X-Ray 04/18/18 23:40 IMPRESSION: No acute cardiopulmonary abnormality 2010 [employer]- All Rights Reserved Qualifiers - * PATIENT BEING DISCHARGED WITH ANY OF THE FOLLOWING DIAGNOSIS: No VTE patient discharged on overlapping Therapy?: Yes Plan Time Spent: Greater than 30 Minutes - f/u out pt pulmonary f/u in offce 1 wk f/ u out pt cardilogy
--- NOTE | 2018-04-27 11:51 | PDOC H&P ---
History of Present Illness Admission Date/PCP: 04/19/18 03:23 KARLEY KAMINSKI MD Patient complains of: Right leg swelling History of Present Illness: ADÁN CHEUNG is a 52 year old male patient of Dr. Karley Kaminski who presented to the ED with complain of new on set right leg swelling. He denied any prior history of DVT, pulmonary embolism, or blood clot. Patient reported that he noticed leg swelling over last couple of days. he had right groin approach cardiac catheterization prior to onset of his problem. he denied any chest pain , palpitation, difficulty with breathing, nausea, vomiting, abdominal pain, fever or chills. His initial evaluation in the ED was unrevealing regarding acute pulmonary pathology on VQ scan and his lower extremities venous doppler was negative for DVT but patient continue to demonstrate hypoxemia with slight exertion and off supplemental oxygen. He did admit to smoking about half pack cigarette daily as downward trend in quantity. His morbidities include COPD, Hypertension, Hyperlipidemia, Diabetes Mellitus Type 2, CAD, and obesity. He was advised hospitalization due to persistent hypoxemia related to exacerbated COPD. Past Medical History Cardiac Medical History: Reports: Hyperlipidema, Hypertension Denies: Coronary Artery Disease, Myocardial Infarction Pulmonary Medical History: Reports: Asthma, Bronchitis, Chronic Obstructive Pulmonary Disease (COPD), Pneumonia Denies: Tuberculosis Neurological Medical History: Denies: Seizures Endocrine Medical History: Reports: Diabetes Mellitus Type 2 Musculoskeltal Medical History: Denies: Arthritis Psychiatric Medical History: Reports: Depression Hematology: Denies: Anemia Past Surgical History Past Surgical History: Reports: Cholecystectomy, Orthopedic Surgery - R foot Social History Smoking Status: Current Every Day Smoker Frequency of Alcohol Use: None Hx Recreational Drug Use: No Drugs: None Hx Prescription Drug Abuse: No - Advance Directive Resuscitation Status: Full Code Family History Family History: Reviewed & Not Pertinent Parental Family History Reviewed: Yes Children Family History Reviewed: Yes Sibling(s) Family History Reviewed.: Yes Medication/Allergy Home Medications: Albuterol Sulfate [Ventolin Hfa] 2 puff IH Q4HP PRN 04/19/18 Aspirin [Adult Low Dose Aspirin EC] 81 mg PO DAILY 04/19/18 Atorvastatin Calcium [Lipitor 80 mg Tablet] 80 mg PO QHS 04/19/18 Diltiazem HCl [Cardizem Cd 120 mg Capsule] 120 mg PO DAILY 04/19/18 Fluticasone/Umeclidin/Vilanter [Trelegy Ellipta 100-62.5-25] 1 puff IH DAILY Fluticasone/Vilanterol [Breo Ellipta 100-25 Mcg INH] 1 puff IH DAILY 04/19/18 Ipratropium/Albuterol Sulfate [Combivent Respimat 4 gm Mdi] 1 puff IH QID Ipratropium/Albuterol Sulfate [Duoneb 3 ml Ampul] 3 ml NEB BIDP PRN 04/19/18 Nicotine [Nicoderm 14 mg/24 Hr Transdermal Patch] 1 patch TD DAILY 04/19/18 Polyethylene Glycol 3350 [Miralax Powder 17 gm/Packet] 17 gm PO DAILY 04/19/18 Tamsulosin HCl [Flomax 0.4 mg Cap.sr] 0.4 mg PO DAILY 04/19/18 Allergies/Adverse Reactions: amoxicillin [Amoxicillin] Adverse Reaction (Verified 04/18/18 20:33) Hives Iodinated Contrast- Oral and IV Dye [IV Dye, Iodine Containing] Adverse Reaction (Verified 04/18/18 20:33) Hives Penicillins Adverse Reaction (Verified 04/18/18 20:33) Hives Apricots Adverse Reaction (Mild, Uncoded 04/18/18 20:33) Hives Review of Systems Constitutional: ABSENT: chills, fever(s), headache(s), weight gain, weight loss Eyes: ABSENT: visual disturbances Ears: ABSENT: hearing changes Nose, Mouth, and Throat: ABSENT: as per HPI, headache(s), mouth pain, sore throat, vertigo, other Cardiovascular: PRESENT: edema - right leg swelling. ABSENT: as per HPI, chest pain, dyspnea on exertion, orthropnea, palpitations, other Respiratory: ABSENT: cough, hemoptysis Gastrointestinal: ABSENT: abdominal pain, constipation, diarrhea, hematemesis, hematochezia, nausea, vomiting Genitourinary: ABSENT: dysuria, hematuria Musculoskeletal: ABSENT: joint swelling Integumentary: ABSENT: rash, wounds Neurological: ABSENT: abnormal gait, abnormal speech, confusion, dizziness, focal weakness, syncope Endocrine: ABSENT: cold intolerance, heat intolerance, polydipsia, polyuria Hematologic/Lymphatic: ABSENT: easy bleeding, easy bruising, lymphadenopathy Allergic/Immunologic: ABSENT: seasonal rhinorrhea Physical Exam Vital Signs: Temp Pulse Resp BP Pulse Ox 98.4 F 72 20 129/69 H 95 04/19/18 08:32 04/19/18 08:32 04/19/18 08:32 04/19/18 08:32 04/19/18 08:32 Intake & Output 04/18/18 04/19/18 04/20/18 06:59 06:59 06:59 Weight 86.2 kg General appearance: PRESENT: no acute distress, obese Head exam: PRESENT: atraumatic, normocephalic Eye exam: PRESENT: conjunctiva pink, EOMI, PERRLA. ABSENT: scleral icterus Ear exam: PRESENT: normal external ear exam Mouth exam: PRESENT: moist Teeth exam: PRESENT: poor dentation Throat exam: ABSENT: post pharyngeal erythema, tonsillar erythema, tonsillar exudate, tonsillogmegaly, other Neck exam: PRESENT: full ROM. ABSENT: carotid bruit, JVD, lymphadenopathy, thyromegaly Respiratory exam: PRESENT: clear to auscultation allyson Cardiovascular exam: PRESENT: RRR. ABSENT: diastolic murmur, rubs, systolic murmur Vascular exam: PRESENT: normal capillary refill. ABSENT: pallor GI/Abdominal exam: PRESENT: normal bowel sounds, soft. ABSENT: distended, guarding, mass, organolmegaly, rebound, tenderness Rectal exam: PRESENT: deferred Extremities exam: ABSENT: pedal edema Musculoskeletal exam: PRESENT: normal inspection Neurological exam: PRESENT: alert, awake, oriented to person, oriented to place , oriented to time, oriented to situation, CN II-XII grossly intact. ABSENT: motor sensory deficit Psychiatric exam: PRESENT: appropriate affect, normal mood. ABSENT: homicidal ideation, suicidal ideation Skin exam: PRESENT: dry, intact, warm. ABSENT: cyanosis, rash Results Laboratory Results: I reviewed his lab results on Dheere Bolo and form significant part of my medical decision making on this case. 04/19/18 03:45 VBG pH 7.37 VBG pCO2 50.9 VBG HCO3 28.8 VBG Base Excess 2.4 Impressions: Chest X-Ray 04/18/18 23:40 IMPRESSION: No acute cardiopulmonary abnormality 2010 [employer] All Rights Reserved Assessment & Plan - Diagnosis (1) COPD with acute exacerbation Is this a current diagnosis for this admission?: Yes Plan: See covering admitting attending physician orders. (2) Hypoxia Is this a current diagnosis for this admission?: Yes Plan: See covering admitting attending physician orders. (3) Type 2 diabetes mellitus Qualifiers: Diabetes mellitus glove maker insulin use: without senior care use Diabetes mellitus complication status: with unspecified complications Qualified Code(s) : E11.8 - Type 2 diabetes mellitus with unspecified complications Is this a current diagnosis for this admission?: Yes Plan: See covering admitting attending physician orders. (4) Hypertension Qualifiers: Hypertension type: essential hypertension Qualified Code(s): I10 - Essential (primary) hypertension Is this a current diagnosis for this admission?: Yes Plan: See covering admitting attending physician orders. (5) Hyperlipidemia associated with type 2 diabetes mellitus Is this a current diagnosis for this admission?: Yes Plan: See covering admitting attending physician orders. (6) BPH loc w urin obs/LUTS Is this a current diagnosis for this admission?: Yes Plan: See covering admitting attending physician orders. (7) Obesity (BMI 30.0-34.9) Is this a current diagnosis for this admission?: Yes Plan: See covering admitting attending physician orders. - Time Time Spent: 50 to 70 Minutes Medications reviewed and adjusted accordingly: Yes Anticipated discharge: Home Within: within 48 hours - Inpatient Certification Based on my medical assessment, after consideration of the patient's comorbidities, presenting symptoms, or acuity I expect that the services needed warrant INPATIENT care.: No I certify that my determination is in accordance with my understanding of Medicare's requirements for reasonable and necessary INPATIENT services [42 CFR 412.3e].: No Medical Necessity: Need Close Monitoring Due to Risk of Patient Decompensation, Need For Continuous Telemetry Monitoring, Need for Nebulizer Therapy and Monitoring of Response, Risk of Complication if Not Cared For in Hospital Post Hospital Care: D/C Paper Sales Representative Documentation - Plan Summary Plan Summary: See covering admitting attending physician orders.
== END 2018-04-21 13:23 | disposition home or self-care (01) | DRG 192 ==
LOC: ER 20:27 → EH 04-19 03:23 → 4N 04-19 06:00 → OBSVTOIN 04-20 13:46
PROVIDERS: ADMIT Family Medicine; ATTEND Family Medicine
PROC: 3E0F73Z Introduction of Anti-inflammatory into Respiratory Tract, Via Natural or Artificial Opening (ICD-10-PCS; principal; 2018-04-19)
DX: J44.1 Chronic obstructive pulmonary disease with (acute) exacerbation (principal); I10 Essential (primary) hypertension; R09.02 Hypoxemia; R60.9 Edema, unspecified; E11.9 Type 2 diabetes mellitus without complications; M79.89 Other specified soft tissue disorders; I25.10 Atherosclerotic heart disease of native coronary artery without angina pectoris; E78.00 Pure hypercholesterolemia, unspecified; F17.210 Nicotine dependence, cigarettes, uncomplicated; F32.9 Major depressive disorder, single episode, unspecified; N40.1 Benign prostatic hyperplasia with lower urinary tract symptoms; E66.9 Obesity, unspecified; Z68.30 Body mass index [BMI] 30.0-30.9, adult; Z79.4 Long term (current) use of insulin; Z99.81 Dependence on supplemental oxygen; Z79.899 Other long term (current) drug therapy; Z91.19 Patient's noncompliance with other medical treatment and regimen; Z88.0 Allergy status to penicillin; Z88.1 Allergy status to other antibiotic agents; Z91.041 Radiographic dye allergy status; Z90.49 Acquired absence of other specified parts of digestive tract; Z79.82 Long term (current) use of aspirin; Z91.018 Allergy to other foods
CPT/HCPCS: 36415; 71045; 78582; 80048; 80053; 82803; 82962; 83880; 84484; 85025; 90471; 90686; 93005; 93010; 93970; 94640; 99291; A9540; A9567; G0008; G0379; J1815; J2920; J2930; J3490; J7620; Q9969

== ENCOUNTER 2018-05-13 15:14 | Inpatient (IN) | payer MEDICARE, MEDICAID ==
--- NOTE | 2018-05-13 16:07 | ER Document Report ---
ED Medical Screen (RME) - General Chief Complaint: Shortness Of Breath Stated Complaint: SHORTNESS OF BREATH Time Seen by Provider: 05/13/18 16:05 TRAVEL OUTSIDE OF THE [place] IN LAST 30 DAYS: No - HPI Notes: 05/13/18 16:06 Shortness of breath less than 24 hours with productive sputum on home O2 - Related Data Allergies/Adverse Reactions: amoxicillin [Amoxicillin] Adverse Reaction (Verified 05/13/18 15:15) Hives Iodinated Contrast- Oral and IV Dye [IV Dye, Iodine Containing] Adverse Reaction (Verified 05/13/18 15:15) Hives Penicillins Adverse Reaction (Verified 05/13/18 15:15) Hives Apricots Adverse Reaction (Mild, Uncoded 05/13/18 15:15) Hives Past Medical History - Social History Chew tobacco use (# tins/day): No Frequency of alcohol use: None Drug Abuse: None Family history: Reviewed & Not Pertinent - Past Medical History Cardiac Medical History: Reports: Hx Hypercholesterolemia, Hx Hypertension Denies: Hx Coronary Artery Disease, Hx Heart Attack Pulmonary Medical History: Reports: Hx Asthma, Hx Bronchitis, Hx COPD, Hx Pneumonia Denies: Hx Tuberculosis Neurological Medical History: Denies: Hx Cerebrovascular Accident, Hx Seizures Endocrine Medical History: Reports: Hx Diabetes Mellitus Type 2 Renal/ Medical History: Denies: Hx Peritoneal Dialysis Musculoskeltal Medical History: Denies Hx Arthritis Psychiatric Medical History: Reports: Hx Depression Past Surgical History: Reports: Hx Abdominal Surgery - herniax3, Hx Cholecystectomy, Hx Orthopedic Surgery - R foot - Immunizations Hx Diphtheria, Pertussis, Tetanus Vaccination: Yes History of Influenza Vaccine for 04/2017 - 09/2017 Season: Yes Review of Systems - Review of Systems Respiratory: Short of breath Physical Exam - Vital signs Vitals: Temp Pulse Resp BP Pulse Ox 99.4 F 109 H 28 H 121/68 88 L 05/13/18 15:28 05/13/18 15:28 05/13/18 15:28 05/13/18 15:28 05/13/18 15:28 - Respiratory Respiratory status: No respiratory distress Chest status: Nontender Breath sounds: Rales, Rhonchi - Cardiovascular Rhythm: Regular Heart sounds: Normal auscultation Course - Vital Signs Vital signs: Temp Pulse Resp BP Pulse Ox 99.4 F 109 H 28 H 121/68 88 L 05/13/18 15:28 10/24/18 15:28 05/13/18 15:28 05/13/18 15:28 05/13/18 15:28 Doctor's Discharge - Discharge Referrals: ARTEMIO KAMINSKI MD [Primary Care Provider] - Follow up as needed
[2018-05-13 16:32] LABS: ABSOLUTE BASOPHILS # (AUTO) 0.1 10^3/uL (0.0-0.2); ABSOLUTE EOSINOPHILS # (AUTO) 0.1 10^3/uL (0.0-0.6); ABSOLUTE LYMPHOCYTES (AUTO) 1.8 10^3/uL (0.5-4.7); ABSOLUTE MONOCYTES (AUTO) 0.5 10^3/uL (0.1-1.4); ABSOLUTE NEUT (AUTO) 4.6 10^3/uL (1.7-8.2); BASOPHILS % (AUTO) 0.8 % (0-2); EOSINOPHILS % (AUTO) 2.1 % (0-6); HEMATOCRIT 43.9 % (37.9-51.0); LYMPHOCYTES % (AUTO) 25.3 % (13-45); MEAN CORPUSCULAR HEMOGLOBIN 33.5 pg (27.0-33.4); MEAN CORPUSCULAR HGB CONC 34.3 g/dL (32.0-36.0); MEAN CORPUSCULAR VOLUME 98 fl (80-97); MONOCYTES % (AUTO) 6.4 % (3-13); PLATELET COUNT 186 10^3/uL (150-450); RED BLOOD COUNT 4.49 10^6/uL (4.35-5.55); RED CELL DISTRIBUTION WIDTH 15.4 % (11.5-14.0); SEGMENTED NEUTROPHILS % (AUTO) 65.4 % (42-78); TOTAL CELLS COUNTED % (AUTO) 100 %; WHITE BLOOD COUNT 7.1 10^3/uL (4.0-10.5)
[2018-05-13 16:35] LABS: VENOUS BLOOD BASE EXCESS 3.1 mmol/L; VENOUS BLOOD HCO3 32.2 mmol/L (20-32); VENOUS BLOOD PH 7.29 (7.30-7.42)
[2018-05-13 16:39] LABS: VENOUS BLOOD PCO2 68.9 mmHg (35-63)
[2018-05-13 16:54] LABS: ALANINE AMINOTRANSFERASE 13 U/L (21-72); ALBUMIN 3.8 g/dL (3.5-5.0); ALKALINE PHOSPHATASE 78 U/L (38-126); ANION GAP 5 (5-19); ASPARTATE AMINO TRANSFERASE 20 U/L (17-59); BILIRUBIN,DIRECT 0.3 mg/dL (0.0-0.4); BILIRUBIN,TOTAL 0.5 mg/dL (0.2-1.3); BLOOD UREA NITROGEN 20 mg/dL (7-20); CALCIUM 8.8 mg/dL (8.4-10.2); CARBON DIOXIDE 38 mmol/L (22-30); CHLORIDE 96 mmol/L (98-107); GLUCOSE 280 mg/dL (75-110); LIPASE 11.7 U/L (23-300); POTASSIUM 4.6 mmol/L (3.6-5.0); SODIUM 139.4 mmol/L (137-145); TOTAL PROTEIN 6.5 g/dL (6.3-8.2)
--- NOTE | 2018-05-13 17:01 | ER Document Report ---
ED Respiratory Problem - General Mode of Arrival: Ambulatory Information source: Patient TRAVEL OUTSIDE OF THE [place] IN LAST 30 DAYS: No <YUNG BURNHAM - Last Filed: 05/13/18 17:24> <YUDY HARRIS - Last Filed: 05/14/18 00:08> - General Chief Complaint: Shortness Of Breath Stated Complaint: SHORTNESS OF BREATH Time Seen by Provider: 05/13/18 16:05 Notes: 52-year-old COPD, DM, HTN, with peripheral edema patient of Dr. Arboleda'chel ran out of his oxygen over an hour ago and became short of breath and felt like he could not breathe. He normally uses 2 L nasal cannula. He continues to smoke a half a pack of cigarettes today. He has had no recent upper respiratory infection or fever. His temperature is 99.4 in the room I am at the bedside his breathing through pursed lips with blue lips, moving very little air posteriorly, pulse ox is 78% respiratory is in the room to put him on BiPAP at 40% 12/5. CO2 on the venous blood gas is 68.9 he is retaining CO2. The end of March it was 50.1. He had an episode of chest pressure midline at 10 this morning it lasted about 10 minutes. He states he had an ID in the past he was cathed in [place] with no stents or angioplasty. Discharged [facility] on 04-21 _ COPD exacerbation, hypoxia, peripheral edema, htn, tobacco abuse, DM2. ( YUNG BURNHAM) - Related Data Allergies/Adverse Reactions: amoxicillin [Amoxicillin] Adverse Reaction (Verified 05/13/18 15:15) Hives Iodinated Contrast- Oral and IV Dye [IV Dye, Iodine Containing] Adverse Reaction (Verified 05/13/18 15:15) Hives Penicillins Adverse Reaction (Verified 05/13/18 15:15) Hives Apricots Adverse Reaction (Mild, Uncoded 05/13/18 15:15) Hives Past Medical History - General Information source: Patient - Social History Smoking Status: Current Every Day Smoker Chew tobacco use (# tins/day): No Frequency of alcohol use: None Drug Abuse: None Lives with: Alone Family History: Reviewed & Not Pertinent Patient has suicidal ideation: No Patient has homicidal ideation: No - Past Medical History Cardiac Medical History: Reports: Hx Hypercholesterolemia, Hx Hypertension Pulmonary Medical History: Reports: Hx Asthma, Hx Bronchitis, Hx COPD, Hx Pneumonia Endocrine Medical History: Reports: Hx Diabetes Mellitus Type 2 Psychiatric Medical History: Reports: Hx Depression Past Surgical History: Reports: Hx Abdominal Surgery - herniax3, Hx Cholecystectomy, Hx Orthopedic Surgery - R foot, Hx Tonsillectomy - Immunizations Hx Diphtheria, Pertussis, Tetanus Vaccination: Yes Hx Pneumococcal Vaccination: 04/20/13 <YUNG BURNHAM - Last Filed: 05/13/18 17:24> Review of Systems - Review of Systems Constitutional: No symptoms reported EENT: No symptoms reported Cardiovascular: No symptoms reported Respiratory: See HPI Gastrointestinal: No symptoms reported Genitourinary: No symptoms reported Male Genitourinary: No symptoms reported Musculoskeletal: No symptoms reported Skin: No symptoms reported Hematologic/Lymphatic: No symptoms reported Neurological/Psychological: No symptoms reported <YUNG BURNHAM - Last Filed: 05/13/18 17:24> Physical Exam - Vital signs Interpretation: Hypertensive, Tachycardic, Hypoxic, Tachypneic - General General appearance: Alert, Other - chronically ill In distress: Moderate - pursed lip exhalation, blue lips - HEENT Head: Normocephalic, Atraumatic Eyes: Normal Conjunctiva: Normal Pupils: PERRL Neck: Supple. No: Lymphadenopathy - Respiratory Respiratory status: Respiratory distress, Pursed lip breathing, Tachypnea - 30, Chest status: Nontender Breath sounds: Decreased air movement Chest palpation: Normal - Cardiovascular Rhythm: Regular Heart sounds: Normal auscultation Murmur: No - Abdominal Inspection: Normal Distension: No distension Bowel sounds: Normal Tenderness: Nontender Organomegaly: No organomegaly - Back Back: Normal, Nontender - Extremities General upper extremity: Normal inspection, Nontender, Normal color, Normal ROM , Normal temperature General lower extremity: Normal inspection, Nontender, Normal color, Normal ROM , Normal temperature, Normal weight bearing. No: Emelyn's sign - Neurological Neuro grossly intact: Yes Cognition: Normal Orientation: AAOx4 Joseph Coma Scale Eye Opening: Spontaneous [place] Coma Scale Verbal: Oriented [place] Coma Scale Motor: Obeys Commands [place] Coma Scale Total: 15 Speech: Normal Motor strength normal: LUE, RUE, LLE, RLE Sensory: Normal - Psychological Associated symptoms: Normal affect, Normal mood - Skin Skin Temperature: Warm Skin Moisture: Dry Skin Color: Normal Skin irregularity: negative: Rash <YUNG BURNHAM - Last Filed: 05/13/18 17:24> - Vital signs Vitals: Temp Pulse Resp BP Pulse Ox 99.4 F 109 H 28 H 121/68 88 L 05/13/18 15:28 05/13/18 15:28 05/13/18 15:28 05/13/18 15:28 05/13/18 15:28 Course - Laboratory Result Diagrams: 05/13/18 16:20 05/13/18 16:20 - EKG Interpretation by Me Rate: Tachycardia <YUNG BURNHAM - Last Filed: 05/13/18 17:24> - Laboratory Result Diagrams: 05/13/18 16:20 05/13/18 16:20 <YUDY HARRIS - Last Filed: 05/14/18 00:08> - Re-evaluation Re-evalutation: 05/13/18 17:01 pulse ox is up to 98% so we cut the O2 down to 35% he is comfortable and states he can feel better. No chest pain at this time. 05/13/18 17:15 Chest x-ray shows mild pulmonary congestion. Consult Dr. Maciel will give the patient 20 mg of Lasix IV he is Lasix jhoan. 05/13/18 17:21 dr arboleda will admit the pt to IMCU and wants lasix 40mg IV, not the 20mg IV. Pt willing to be admitted. troponin is negative. 05/13/18 17:23 05/13/18 17:25 (YUNG BURNHAM) - Vital Signs Vital signs: Temp Pulse Resp BP Pulse Ox 99.5 F 93 20 126/73 H 96 05/13/18 19:49 05/13/18 20:15 05/13/18 20:15 05/13/18 19:49 05/13/18 20:15 - Laboratory Laboratory results interpreted by me: 05/13/18 05/13/18 05/13/18 16:20 16:20 16:20 MCV 98 H MCH 33.5 H RDW 15.4 H VBG pH 7.29 L VBG pCO2 68.9 H* VBG HCO3 32.2 H Chloride 96 L Carbon Dioxide 38 H Glucose 280 H ALT 13 L Lipase 11.7 L Critical Care Note <YUNG BURNHAM - Last Filed: 05/13/18 17:24> - Critical Care Note Total time excluding time spent on procedures (mins): 37 <YUDY HARRIS - Last Filed: 05/14/18 00:08> - Critical Care Note Comments: Critical care time 37 minutes exclusive from separate billable procedures for a patient requiring complex medical decision making, and high potential for clinical deterioration. In a patient with acute respiratory failure requiring noninvasive positive pressure ventilation. Time spent obtaining history from patient or surrogate, discussions with consultants, development of treatment plan with patient or surrogate, evaluation of patient's response to treatment, examination of patient, ordering and performing treatments and interventions, ordering and review of laboratory studies, re-evaluation of patient's condition , ordering and review of radiographic studies and review of old charts (YUDY HARRIS) Discharge - Discharge Admitting Provider: [facility] Unit Admitted: IMCU <YUNG BURNHAM - Last Filed: 05/13/18 17:24> <YUDY HARRIS - Last Filed: 05/14/18 00:08> - Discharge Clinical Impression: Hypercapnia, Hypoxia, Tobacco abuse, Obesity (BMI 30.0-34.9), Respiratory distress, Peripheral edema Hypertension Qualifiers: Hypertension type: essential hypertension Qualified Code(s): I10 - Essential ( primary) hypertension Condition: Fair Disposition: ADMITTED INPATIENT
--- NOTE | 2018-05-13 17:02 | RADIOLOGY REPORT (SQ) ---
EXAM DESCRIPTION: CHEST 2 VIEWS COMPLETED DATE/TIME: 05/13/2018 4:40 pm REASON FOR STUDY: sob COMPARISON: 01/23/2018 EXAM PARAMETERS: NUMBER OF VIEWS: two views TECHNIQUE: Digital Frontal and Lateral radiographic views of the chest acquired. RADIATION DOSE: NA LIMITATIONS: none FINDINGS: LUNGS AND PLEURA: COPD with mild chronic changes in the bases. No acute opacities, masses or pneumothorax. No pleural effusion. MEDIASTINUM AND HILAR STRUCTURES: No masses or contour abnormalities. HEART AND VASCULAR STRUCTURES: Cardiac silhouette is of normal size. Mild vascular congestion. BONES: No acute findings. HARDWARE: None in the chest. OTHER: No other significant finding. IMPRESSION: Mild vascular congestion. TECHNICAL DOCUMENTATION: JOB ID: [id number]- All Rights Reserved Reading location - IP/workstation name: [email or web address]
[2018-05-13 17:06] LABS: NT PRO BNP 254 pg/mL (5-900)
[2018-05-13 17:08] LABS: TROPONIN I < 0.012 ng/mL
[2018-05-13] MEDS ORDERED: FUROSEMIDE INJ/PF 20 MG/2 ML SDV IV ONE (17:14)
[2018-05-13] MEDS ORDERED: FUROSEMIDE INJ/PF 40 MG/4 ML SDV IV ONE (17:20)
[2018-05-13] MEDS ORDERED: ACETAMINOPHEN 325 MG TABLET PO PRN (17:31)
--- NOTE | 2018-05-13 17:46 | PDOC H&P ---
History of Present Illness Admission Date/PCP: ARTEMIO KAMINSKI MD Patient complains of: Shortness of the breath History of Present Illness: ADÁN CHEUNG is a 52 year old male This is a 52-year-old male with a significant history of the COPD history of the type 2 diabetes mellitus history of the hypertensions hyperlipidemia and continues to chronic smoker and a very noncompliance with the medications currently on oxygen dependent came to the emergency department because of difficulty in breathing and patient oxygen saturation is 79%'s patient was put on the BiPAP patient's currently feeling better Patient's PCO2 was 69 last visit PCO2 was 50 Patient also continues to smoke more than 1 pack cigarettes a day Patient also have some vascular congestion and peripheral edema. Patient's recently admitted for the COPD and recently went to the [facility] cardiac center for further evaluations Patient's denied any chest pain today denied any fever no chills Patient actually have a like a small time for the oxygen and run out very quickly Discussed with the patient and the patient's family member in the emergency department regarding the compliance of the medication and if continues to smoke lead to more complications and patient understand very well Expressing what he wants to go home very quickly because he was some kind of a wedding coming and told the patient and family it depends on the patient's condition and how it goes Past Medical History Cardiac Medical History: Reports: Hyperlipidema, Hypertension Denies: Coronary Artery Disease, Myocardial Infarction Pulmonary Medical History: Reports: Asthma, Bronchitis, Chronic Obstructive Pulmonary Disease (COPD), Pneumonia Denies: Tuberculosis Neurological Medical History: Denies: Seizures Endocrine Medical History: Reports: Diabetes Mellitus Type 2 Musculoskeltal Medical History: Denies: Arthritis Psychiatric Medical History: Reports: Depression Hematology: Denies: Anemia Past Surgical History Past Surgical History: Reports: Cardiac Catheterization, Cholecystectomy, Orthopedic Surgery - R foot, Tonsillectomy Social History Lives with: Alone Smoking Status: Current Every Day Smoker Frequency of Alcohol Use: None Hx Recreational Drug Use: No Drugs: None Hx Prescription Drug Abuse: No Family History Family History: Reviewed & Not Pertinent Parental Family History Reviewed: Yes Children Family History Reviewed: Yes Sibling(s) Family History Reviewed.: Yes Medication/Allergy Home Medications: Albuterol Sulfate [Ventolin Hfa] 2 puff IH Q4HP PRN 04/19/18 Aspirin [Adult Low Dose Aspirin EC] 81 mg PO DAILY 04/19/18 Atorvastatin Calcium [Lipitor 80 mg Tablet] 80 mg PO QHS 04/19/18 Diltiazem HCl [Cardizem Cd 120 mg Capsule] 120 mg PO DAILY 04/19/18 Ipratropium/Albuterol Sulfate [Duoneb 3 ml Ampul] 3 ml NEB TIDP PRN 04/19/18 Tamsulosin HCl [Flomax 0.4 mg Cap.sr] 0.4 mg PO DAILY 04/19/18 Fluticasone/Salmeterol [Advair 250-50 Diskus 14 Dose/Diskus] 1 inh IH Q12 #1 inhaler 04/21/18 Insulin Glargine,Hum.rec.anlog [Lantus Insulin 100 Unit/1 ml 10 ml] 36 unit SUBCUT Q12 #1 unit 04/21/18 Tiotropium [place] [Spiriva Handihaler 5 Cap/Kit (18 Mcg/Cap)] 1 cap IH DAILY # 1 kit 04/21/18 Insulin Aspart [Novolog Flexpen] 4 units SUBCUT TID 05/13/18 Allergies/Adverse Reactions: amoxicillin [Amoxicillin] Adverse Reaction (Verified 05/13/18 15:15) Hives Iodinated Contrast- Oral and IV Dye [IV Dye, Iodine Containing] Adverse Reaction (Verified 05/13/18 15:15) Hives Penicillins Adverse Reaction (Verified 05/13/18 15:15) Hives Apricots Adverse Reaction (Mild, Uncoded 05/13/18 15:15) Hives Review of Systems Constitutional: ABSENT: chills, fever(s), headache(s), weight gain, weight loss Eyes: ABSENT: visual disturbances Ears: ABSENT: hearing changes Cardiovascular: ABSENT: chest pain, dyspnea on exertion, edema, orthropnea, palpitations Respiratory: ABSENT: cough, hemoptysis Gastrointestinal: ABSENT: abdominal pain, constipation, diarrhea, hematemesis, hematochezia, nausea, vomiting Genitourinary: ABSENT: dysuria, hematuria Musculoskeletal: ABSENT: joint swelling Integumentary: ABSENT: rash, wounds Neurological: ABSENT: abnormal gait, abnormal speech, confusion, dizziness, focal weakness, syncope Psychiatric: ABSENT: anxiety, depression, homidical ideation, suicidal ideation Endocrine: ABSENT: cold intolerance, heat intolerance, menstrual abnormalities, polydipsia, polyuria Hematologic/Lymphatic: ABSENT: easy bleeding, easy bruising, lymphadenopathy Physical Exam Vital Signs: Temp Pulse Resp BP Pulse Ox 98 F 109 H 21 H 139/83 H 97 05/13/18 17:36 05/13/18 15:28 05/13/18 17:29 05/13/18 17:29 05/13/18 17:29 Intake & Output 05/12/18 05/13/18 05/14/18 06:59 06:59 06:59 Weight 95.1 kg Physical Exam: Currently on a BiPAP General appearance: PRESENT: no acute distress, mild distress, well-developed, well-nourished Head exam: PRESENT: atraumatic, normocephalic Eye exam: PRESENT: conjunctiva pink, EOMI, PERRLA. ABSENT: scleral icterus Ear exam: PRESENT: normal external ear exam Mouth exam: PRESENT: moist, tongue midline Neck exam: PRESENT: full ROM. ABSENT: carotid bruit, JVD, lymphadenopathy, thyromegaly Respiratory exam: PRESENT: decreased breath sounds Cardiovascular exam: PRESENT: RRR. ABSENT: diastolic murmur, rubs, systolic murmur Pulses: PRESENT: normal dorsalis pedis pul, +2 pedal pulses bilateral Vascular exam: PRESENT: normal capillary refill GI/Abdominal exam: PRESENT: normal bowel sounds, soft. ABSENT: distended, guarding, mass, organolmegaly, rebound, tenderness Rectal exam: PRESENT: deferred Extremities exam: PRESENT: pedal edema Neurological exam: PRESENT: alert, awake, oriented to person, oriented to place , oriented to time, oriented to situation, CN II-XII grossly intact. ABSENT: motor sensory deficit Psychiatric exam: PRESENT: appropriate affect, normal mood. ABSENT: homicidal ideation, suicidal ideation Skin exam: PRESENT: dry, intact, warm. ABSENT: cyanosis, rash Results Laboratory Results: 05/13/18 16:20 05/13/18 16:20 05/13/18 05/13/18 05/13/18 16:20 16:20 16:20 WBC 7.1 RBC 4.49 Hgb 15.0 Hct 43.9 MCV 98 H MCH 33.5 H MCHC 34.3 RDW 15.4 H Plt Count 186 Seg Neutrophils % 65.4 Lymphocytes % 25.3 Monocytes % 6.4 Eosinophils % 2.1 Basophils % 0.8 Absolute Neutrophils 4.6 Absolute Lymphocytes 1.8 Absolute Monocytes 0.5 Absolute Eosinophils 0.1 Absolute Basophils 0.1 VBG pH 7.29 L VBG pCO2 68.9 H* VBG HCO3 32.2 H VBG Base Excess 3.1 Sodium 139.4 Potassium 4.6 Chloride 96 L Carbon Dioxide 38 H Anion Gap 5 BUN 20 Creatinine 0.96 Est GFR ( Amer) > 60 Est GFR (Non-Af Amer) > 60 Glucose 280 H Calcium 8.8 Total Bilirubin 0.5 AST 20 ALT 13 L Alkaline Phosphatase 78 Total Protein 6.5 Albumin 3.8 Lipase 11.7 L 05/13/18 16:20 Troponin I < 0.012 NT-Pro-B Natriuret Pep 254 Impressions: Chest X-Ray 05/13/18 16:05 IMPRESSION: Mild vascular congestion. Assessment & Plan - Diagnosis (1) Respiratory distress Is this a current diagnosis for this admission?: Yes Plan: Due to the COPD acute exacerbations will get the nebulizer treatments consult the pulmonary continues on a BiPAP (2) COPD with acute exacerbation Is this a current diagnosis for this admission?: Yes Plan: Will get the nebulizer treatments (3) Hypercapnia Is this a current diagnosis for this admission?: Yes Plan: Continues on a BiPAP we will consult the pulmonary for further evaluations (4) Hypoxia Is this a current diagnosis for this admission?: Yes Plan: Will get the VQ scan most likely underlying severe COPD (5) Peripheral edema Is this a current diagnosis for this admission?: Yes Plan: Will get the ultrasound for the lower extremity to rule out any underlying DVT (6) Tobacco abuse Is this a current diagnosis for this admission?: Yes Plan: Discussed with the patient about smoking counseling we will put the patient on nicotine patch (7) Noncompliance Is this a current diagnosis for this admission?: Yes Plan: pt is of very noncompliance with the medications also noncompliance with the diet (8) Type 2 diabetes mellitus Qualifiers: Diabetes mellitus retirement insulin use: with retirement use Diabetes mellitus complication status: with unspecified complications Qualified Code(s) : E11.8 - Type 2 diabetes mellitus with unspecified complications; Z79.4 - [facility] (current) use of insulin; 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 insulin; Z79.4 - [facility] (current) use of insulin; 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 insulin Is this a current diagnosis for this admission?: Yes Plan: Continues to sliding-scale (9) Hypertension Qualifiers: Hypertension type: essential hypertension Qualified Code(s): I10 - Essential (primary) hypertension Is this a current diagnosis for this admission?: Yes Plan: Continues current medication - Time Time Spent: 30 to 50 Minutes Medications reviewed and adjusted accordingly: Yes Anticipated discharge: Home, Other Within: Other - Inpatient Certification Based on my medical assessment, after consideration of the patient's comorbidities, presenting symptoms, or acuity I expect that the services needed warrant INPATIENT care.: Yes Medical Necessity: Significant Comorbidiites Make Outpatient Treatment Too Risky , Need Close Monitoring Due to Risk of Patient Decompensation Post Hospital Care: D/C Test Driller Documentation - Plan Summary Plan Summary: Admit the patient's in the IMCU Consult the pulmonary Consult the cardiology for further evaluations due to underlying in his congestive heart failure due to the peripheral edema and hypoxia Get the VQ scan and venous Doppler Discussed with the patient and the family in the ER
[2018-05-13] MEDS: IPRATROPIUM/ALBUTEROL 0.5-2.5 MG/3 ML AMPUL NEB SCH (20:14)
--- NOTE | 2018-05-13 22:04 | Progress Note ---
Provider Note Provider Note: Patient seen earlier this evening. He is noted to be using is denying any chest pain. He has some shortness of breath. 2D echo has been ordered. BNP level is WNL. Feel that patient most likely has just COPD exacerbation. Further plan after review of 2D echo. Have also had nurse request recent evaluation report from [facility] where patient claims had some recent cardiac evaluation.
[2018-05-13 22:26] LABS: CREATINE KINASE MB 2.57 ng/mL (<4.55)
[2018-05-13 22:30] LABS: TROPONIN I < 0.012 ng/mL
--- NOTE | 2018-05-13 22:39 | EKG REPORT ---
SEVERITY:- OTHERWISE NORMAL ECG - SINUS TACHYCARDIA RIGHT AXIS DEVIATION : Confirmed by: Keaton Manning 13-May-2018 22:38:31
[2018-05-14] MEDS: IPRATROPIUM/ALBUTEROL 0.5-2.5 MG/3 ML AMPUL NEB SCH ×7 (00:08→23:52)
[2018-05-14 04:01] LABS: ABSOLUTE BASOPHILS # (AUTO) 0.1 10^3/uL (0.0-0.2); ABSOLUTE EOSINOPHILS # (AUTO) 0.1 10^3/uL (0.0-0.6); ABSOLUTE LYMPHOCYTES (AUTO) 1.6 10^3/uL (0.5-4.7); ABSOLUTE MONOCYTES (AUTO) 0.4 10^3/uL (0.1-1.4); ABSOLUTE NEUT (AUTO) 3.5 10^3/uL (1.7-8.2); BASOPHILS % (AUTO) 0.9 % (0-2); EOSINOPHILS % (AUTO) 2.2 % (0-6); HEMATOCRIT 41.4 % (37.9-51.0); LYMPHOCYTES % (AUTO) 28.6 % (13-45); MEAN CORPUSCULAR HGB CONC 33.9 g/dL (32.0-36.0); MEAN CORPUSCULAR VOLUME 97 fl (80-97); MONOCYTES % (AUTO) 7.8 % (3-13); PLATELET COUNT 163 10^3/uL (150-450); RED BLOOD COUNT 4.25 10^6/uL (4.35-5.55); RED CELL DISTRIBUTION WIDTH 15.5 % (11.5-14.0); SEGMENTED NEUTROPHILS % (AUTO) 60.5 % (42-78); TOTAL CELLS COUNTED % (AUTO) 100 %; WHITE BLOOD COUNT 5.7 10^3/uL (4.0-10.5)
[2018-05-14 04:14] LABS: ALANINE AMINOTRANSFERASE 13 U/L (21-72); ALBUMIN 3.2 g/dL (3.5-5.0); ALKALINE PHOSPHATASE 71 U/L (38-126); ANION GAP 6 (5-19); ASPARTATE AMINO TRANSFERASE 7 U/L (17-59); BILIRUBIN,DIRECT 0.2 mg/dL (0.0-0.4); BILIRUBIN,TOTAL 0.4 mg/dL (0.2-1.3); BLOOD UREA NITROGEN 24 mg/dL (7-20); CALCIUM 8.8 mg/dL (8.4-10.2); CARBON DIOXIDE 39 mmol/L (22-30); CHLORIDE 94 mmol/L (98-107); CREATINE KINASE 35 U/L (55-170); GLUCOSE 289 mg/dL (75-110); POTASSIUM 4.5 mmol/L (3.6-5.0); SODIUM 138.5 mmol/L (137-145); TOTAL PROTEIN 5.4 g/dL (6.3-8.2)
[2018-05-14 04:24] LABS: CREATINE KINASE MB 2.24 ng/mL (<4.55); NT PRO BNP 389 pg/mL (5-900)
[2018-05-14 04:25] LABS: TROPONIN I < 0.012 ng/mL
[2018-05-14] MEDS ORDERED: LANSOPRAZOLE 30 MG TAB.RAP.DR PO SCH (06:00)
[2018-05-14] MEDS: LEVOFLOXACIN 500 MG TABLET PO SCH (09:12)
[2018-05-14] MEDS: FUROSEMIDE 20 MG TABLET PO SCH (09:13)
[2018-05-14] MEDS: DILTIAZEM HCL 120 MG CAP.SR.24H PO SCH (09:13)
[2018-05-14] MEDS: TAMSULOSIN HCL 0.4 MG CAP.SR.24H PO SCH (09:13)
[2018-05-14] MEDS: TIOTROPIUM BROMIDE DPI 5 CAP/KIT (18 MCG/CAP) IH SCH (09:15)
[2018-05-14] MEDS: ASPIRIN 81 MG TABLET, ENT COATED PO SCH (09:18)
[2018-05-14] MEDS: ENOXAPARIN SODIUM INJ 40 MG/0.4 ML DISP.SYRIN SUBCUT SCH (09:18)
[2018-05-14] MEDS ORDERED: FLUTICASONE/SALMETEROL DISKUS 250-50 MCG/DOSE IH SCH (10:00)
[2018-05-14] MEDS ORDERED: INSULIN GLARGINE,HUM.REC.ANLOG 1,000 UNIT/10 ML UNIT SUBCUT SCH (10:00)
[2018-05-14 11:08] LABS: TROPONIN I < 0.012 ng/mL
[2018-05-14 11:27] LABS: ARTERIAL BLOOD BASE EXCESS 10.3 mmol/L; ARTERIAL BLOOD H2CO3 2.25 mmol/L (1.05-1.35); ARTERIAL BLOOD HCO3 39.4 mmol/L (20-24); ARTERIAL BLOOD O2 SATURATION 91.8 % (94-98); ARTERIAL BLOOD PH 7.34 (7.35-7.45); ARTERIAL BLOOD PO2 68.1 mmHg (80-100); ARTERIAL BLOOD TOTAL CO2 41.7 mmol/L (23-27)
[2018-05-14 11:31] LABS: ARTERIAL BLOOD FIO2 6 L; ARTERIAL BLOOD PCO2 74.6 mmHg (35-45)
--- NOTE | 2018-05-14 12:00 | PDOC PROGRESS REPORT ---
Subjective Progress Note for:: 05/14/18 Subjective:: Patient is feeling better Patient's denied any chest pain denied any shortness of the breath No fever no chills Reason For Visit: COPD, ACUTE RESPIRATORY DISTRESS Physical Exam Vital Signs: Temp Pulse Resp BP Pulse Ox 97.9 F 77 17 124/65 90 L 05/14/18 07:56 05/14/18 08:11 05/14/18 08:11 05/14/18 07:56 05/14/18 08:11 Intake & Output 05/13/18 05/14/18 05/15/18 06:59 06:59 06:59 Intake Total 240 Output Total 1425 Balance -1185 Weight 95 kg General appearance: PRESENT: no acute distress, well-developed, well-nourished Head exam: PRESENT: atraumatic, normocephalic Eye exam: PRESENT: conjunctiva pink, EOMI, PERRLA. ABSENT: scleral icterus Ear exam: PRESENT: normal external ear exam Mouth exam: PRESENT: moist, tongue midline Neck exam: PRESENT: full ROM. ABSENT: carotid bruit, JVD, lymphadenopathy, thyromegaly Respiratory exam: PRESENT: clear to auscultation allyson, decreased breath sounds Cardiovascular exam: PRESENT: RRR. ABSENT: diastolic murmur, rubs, systolic murmur Pulses: PRESENT: normal dorsalis pedis pul, +2 pedal pulses bilateral Vascular exam: PRESENT: normal capillary refill GI/Abdominal exam: PRESENT: normal bowel sounds, soft. ABSENT: distended, guarding, mass, organolmegaly, rebound, tenderness Rectal exam: PRESENT: deferred Extremities exam: PRESENT: pedal edema Musculoskeletal exam: PRESENT: ambulatory Neurological exam: PRESENT: alert, awake, oriented to person, oriented to place , oriented to time, oriented to situation, CN II-XII grossly intact. ABSENT: motor sensory deficit Psychiatric exam: PRESENT: appropriate affect, normal mood. ABSENT: homicidal ideation, suicidal ideation Skin exam: PRESENT: dry, intact, warm. ABSENT: cyanosis, rash Results Laboratory Results: 05/14/18 03:45 05/14/18 03:45 05/14/18 05/14/18 05/14/18 03:45 03:45 11:18 WBC 5.7 RBC 4.25 L Hgb 14.0 Hct 41.4 MCV 97 MCH 33.0 MCHC 33.9 RDW 15.5 H Plt Count 163 Seg Neutrophils % 60.5 Lymphocytes % 28.6 Monocytes % 7.8 Eosinophils % 2.2 Basophils % 0.9 Absolute Neutrophils 3.5 Absolute Lymphocytes 1.6 Absolute Monocytes 0.4 Absolute Eosinophils 0.1 Absolute Basophils 0.1 Carbonic Acid 2.25 H HCO3/H2CO3 Ratio 17:1 ABG pH 7.34 L ABG pCO2 74.6 H* ABG pO2 68.1 L ABG HCO3 39.4 H ABG O2 Saturation 91.8 L ABG Base Excess 10.3 FiO2 6 L Sodium 138.5 Potassium 4.5 Chloride 94 L Carbon Dioxide 39 H Anion Gap 6 BUN 24 H Creatinine 1.00 Est GFR ( Amer) > 60 Est GFR (Non-Af Amer) > 60 Glucose 289 H Calcium 8.8 Magnesium 1.8 Total Bilirubin 0.4 AST 7 L ALT 13 L Alkaline Phosphatase 71 Total Protein 5.4 L Albumin 3.2 L 05/13/18 05/13/18 05/14/18 21:45 21:45 03:45 Creatine Kinase 41 L 35 L CK-MB (CK-2) 2.57 Troponin I < 0.012 NT-Pro-B Natriuret Pep 05/14/18 05/14/18 05/14/18 03:45 10:07 10:07 Creatine Kinase 33 L CK-MB (CK-2) 2.24 2.50 Troponin I < 0.012 < 0.012 NT-Pro-B Natriuret Pep 389 Impressions: Chest X-Ray 05/13/18 16:05 IMPRESSION: Mild vascular congestion. Assessment & Plan - Diagnosis (1) Respiratory distress Is this a current diagnosis for this admission?: Yes Plan: Patient's PCO2 is still high will continues put on the BiPAP consult the pulmonary (2) COPD with acute exacerbation Is this a current diagnosis for this admission?: Yes Plan: Will get the nebulizer treatments (3) Hypercapnia Is this a current diagnosis for this admission?: Yes Plan: Continues BiPAP (4) Hypoxia Is this a current diagnosis for this admission?: Yes Plan: Due to the severe COPD (5) Peripheral edema Is this a current diagnosis for this admission?: Yes Plan: She had a echocardiogram done will wait for the cardiology input (6) Tobacco abuse Is this a current diagnosis for this admission?: Yes Plan: Discussed with the patient about smoking counseling we will put the patient on nicotine patch (7) Noncompliance Is this a current diagnosis for this admission?: Yes Plan: pt is of very noncompliance with the medications also noncompliance with the diet (8) Type 2 diabetes mellitus 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 use Diabetes mellitus complication status: with unspecified complications Qualified Code(s) : E11.8 - Type 2 diabetes mellitus with unspecified complications; Z79.4 - long term care pharmacist (current) use of insulin; Z79.4 - long term care pharmacist (current) use of insulin; Z79.4 - [facility] (current) use of insulin; Z79.4 - long term care pharmacist (current) use of insulin Is this a current diagnosis for this admission?: Yes Plan: Continues to sliding-scale (9) Hypertension Qualifiers: Hypertension type: essential hypertension Qualified Code(s): I10 - Essential (primary) hypertension Is this a current diagnosis for this admission?: Yes Plan: Continues current medication - Time Time Spent with patient: 15-24 minutes Medications reviewed and adjusted accordingly: Yes Anticipated discharge: Home Within: Other - Inpatient Certification Based on my medical assessment, after consideration of the patient's comorbidities, presenting symptoms, or acuity I expect that the services needed warrant INPATIENT care.: Yes I certify that my determination is in accordance with my understanding of Medicare's requirements for reasonable and necessary INPATIENT services [42 CFR 412.3e].: Yes Medical Necessity: Need Close Monitoring Due to Risk of Patient Decompensation, Need for Nebulizer Therapy and Monitoring of Response Post Hospital Care: D/C Dish Network Installer Documentation - Plan Summary Plan Summary: Continues to BiPAP continues to current medications
--- NOTE | 2018-05-14 16:14 | XCELERA REPORT ---
[address] [facility] [address] Lower Extremity Venous Evaluation Procedure: Color flow and duplex imaging bilaterally of the veins of the lower extremities as well as the Common Femoral veins. Right Sided Venous Evaluation Normal vessel filling wall to wall, compression and augmentation as well as Colour flow down to the infrageniculate veins. Left Sided Venous Evaluation Normal vessel filling wall to wall, compression and augmentation as well as Colour flow down to the infrageniculate veins. Interpretation Summary No duplex evidence of DVT or obstruction in the bilateral lower extremities. Name: ADÁN CHEUNG Age: 52 yrs Gender: Male : 1965 Patient Status: Inpatient Patient Location: [address] [place] [address] Study Date: 05/14/2018 10:05 AM Reason For Study: edema/hypoxia Ordering Physician: ARTEMIO KAMINSKI Performed By: Dianna Flood : ARTEMIO KAMINSKI > Mark Kearney
--- NOTE | 2018-05-14 18:11 | XCELERA REPORT ---
[address] [address] Transthoracic Echocardiogram Report Name: ADÁN CHEUNG Age: 52 yrs Gender: Male : 1965 Patient Status: Inpatient Patient Location: [address] [place] [address] Study Date: 05/14/2018 09:45 AM Procedure: A complete two-dimensional transthoracic echocardiogram was performed (2D, M-mode, spectral and color flow Doppler). The study was technically difficult with many images being suboptimal in quality. Reason For Study: chf Ordering Physician: ARTEMIO KAMINSKI Performed By: Dianna Flood Interpretation Summary The left ventricular ejection fraction is normal. Doppler measurements suggest pseudonormalized left ventricular relaxation, which is associated with grade II/IV or mild to moderate diastolic dysfunction There is mild concentric left ventricular hypertrophy. The left ventricle is grossly normal size. Regional wall motion abnormalities cannot be excluded due to limited visualization. The right ventricle is mildly dilated. The right ventricle appears to be hypertrophied Right ventricular function cannot be assessed due to poor image quality. The right atrium is mildly dilated. The left atrial size is normal. There is a trace amount of mitral regurgitation There is no mitral valve stenosis. No aortic regurgitation is present. There is no aortic valve stenosis There is a trace or physiologic amount of tricuspid regurgitation Tricuspid regurgitation jet envelope not well defined to measure RV systolic pressure accurately. The aortic root is not well visualized but is probably normal size. The inferior vena cava appeared normal and decreased > 50% with respiration (RAP 5-10 mmHg) There is no pericardial effusion. MMode/2D Measurements & Calculations RVDd: 3.7 cm LVIDd: 5.4 cm FS: 40.3 % Ao root diam: 2.9 cm IVSd: 0.81 cm LVIDs: 3.2 cm EDV(Teich): 142.5 ml Ao root area: 6.6 cm2 LVPWd: 1.0 cm ESV(Teich): 42.1 ml EF(Teich): 70.5 % Doppler Measurements & Calculations MV E max cornelius: MV dec slope: Ao V2 max: LV V1 max P.5 cm/sec 103.0 cm/sec 4.6 mmHg MV A max cornelius: 427.9 cm/sec2 Ao max PG: LV V1 max: 84.6 cm/sec MV dec time: 0.19 sec4.2 mmHg 107.6 cm/sec MV E/A: 0.95 PA V2 max: TR max cornelius: 124.6 cm/sec 215.2 cm/sec PA max P.2 mmHg TR max P.5 mmHg Left Ventricle The left ventricle is grossly normal size. There is mild concentric left ventricular hypertrophy. The left ventricular ejection fraction is normal. Doppler measurements suggest pseudonormalized left ventricular relaxation, which is associated with grade II/IV or mild to moderate diastolic dysfunction. Regional wall motion abnormalities cannot be excluded due to limited visualization. Right Ventricle The right ventricle is mildly dilated. The right ventricle appears to be hypertrophied. Right ventricular function cannot be assessed due to poor image quality. Atria The right atrium is mildly dilated. The left atrial size is normal. Interarterial septum not well visualized and not well dopplered. Cannot comment on ASD/PFO presence. Mitral Valve The mitral valve is grossly normal. There is no mitral valve stenosis. There is a trace amount of mitral regurgitation. Aortic Valve The aortic valve opens well. There is no aortic valve stenosis. No aortic regurgitation is present. Tricuspid Valve The tricuspid valve is not well visualized secondary to technical limitations. There is no tricuspid stenosis. There is a trace or physiologic amount of tricuspid regurgitation. Tricuspid regurgitation jet envelope not well defined to measure RV systolic pressure accurately. Pulmonic Valve The pulmonic valve is not well visualized. Great Vessels The aortic root is not well visualized but is probably normal size. The inferior vena cava appeared normal and decreased > 50% with respiration (RAP 5-10 mmHg). Effusions There is no pericardial effusion. : ARTEMIO KAMINSKI > Keaton Manning
[2018-05-14 18:35] LABS: ARTERIAL BLOOD BASE EXCESS 7.5 mmol/L; ARTERIAL BLOOD H2CO3 2.24 mmol/L (1.05-1.35); ARTERIAL BLOOD HCO3 36.6 mmol/L (20-24); ARTERIAL BLOOD O2 SATURATION 93.4 % (94-98); ARTERIAL BLOOD PH 7.31 (7.35-7.45); ARTERIAL BLOOD PO2 75.7 mmHg (80-100); ARTERIAL BLOOD TOTAL CO2 38.9 mmol/L (23-27)
[2018-05-14 18:36] LABS: ARTERIAL BLOOD FIO2 50%
[2018-05-14 18:43] LABS: ARTERIAL BLOOD PCO2 74.4 mmHg (35-45)
--- NOTE | 2018-05-14 19:54 | PDOC PROGRESS REPORT ---
Subjective Progress Note for:: 05/14/18 Subjective:: Patient feels much improved since therapy last night and also this morning. Currently off BiPAP therapy. Patient seems to be doing better with gradual improvement. Pt is denying any chest arm or neck discomfort. Patient denying any PND, orthopnea. Patient denied any sustained palpitations, dizziness, syncope, near syncope. Patient denying any fever chills. Patient denying any other significant discomfort. Patient is maintaining sinus rhythm. Review of systems: Rest review of systems negative. Medications: Medications have been reviewed. Reason For Visit: COPD, ACUTE RESPIRATORY DISTRESS Physical Exam Vital Signs: Temp Pulse Resp BP Pulse Ox 97.8 F 66 20 111/50 L 88 L 05/14/18 15:36 05/14/18 15:56 05/14/18 15:56 05/14/18 15:36 05/14/18 15:56 Intake & Output 05/13/18 05/14/18 05/15/18 06:59 06:59 06:59 Intake Total 240 672 Output Total 1425 475 Balance -1185 197 Weight 95 kg Exam: GENERAL: well-nourished and in no acute distress. Alert and oriented x3 HEAD: Atraumatic, normocephalic. EYES: Pupils equal round and reactive to light, extraocular movements intact, sclera anicteric, conjunctiva are normal. ENT: TMs normal, nares patent, oropharynx clear without exudates. Moist mucous membranes. No oral ulcerations or bleeding gums noted NECK: supple without lymphadenopathy. Trachea is central. No cervical or axillary lymphadenopathy noted. Carotids are 2+, JVD WNL LUNGS: Respiration seems nonlabored, no significant accessory muscle action noted. Breath sounds clear to auscultation bilaterally and equal noted. Scattered wheezes rales or rhonchi noted. No significant dullness noted on percussion. CHEST: Palpation of the chest wall shows no significant chest wall tenderness. 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 ABDOMEN: Soft, no significant tenderness appreciated, normoactive bowel sounds. No guarding, no rebound. No rigidity noted . No masses appreciated. EXTREMITIES: Pedal pulses are 1-2+, no calf tenderness noted. No clubbing or cyanosis. negative pedal edema noted NEUROLOGICAL: Focused neurological exam showed no significant neurologic deficit. Normal speech, no focal weakness appreciated. PSYCH: Normal mood, normal affect. Judgment and insight within normal limits. SKIN: No significant ecchymosis, skin is noted to be warm. MUSCULOSKELETAL EXAM: No significant acute joint swelling noted. Results Laboratory Results: 05/14/18 03:45 05/14/18 03:45 05/14/18 05/14/18 05/14/18 03:45 03:45 11:18 WBC 5.7 RBC 4.25 L Hgb 14.0 Hct 41.4 MCV 97 MCH 33.0 MCHC 33.9 RDW 15.5 H Plt Count 163 Seg Neutrophils % 60.5 Lymphocytes % 28.6 Monocytes % 7.8 Eosinophils % 2.2 Basophils % 0.9 Absolute Neutrophils 3.5 Absolute Lymphocytes 1.6 Absolute Monocytes 0.4 Absolute Eosinophils 0.1 Absolute Basophils 0.1 Carbonic Acid 2.25 H HCO3/H2CO3 Ratio 17:1 ABG pH 7.34 L ABG pCO2 74.6 H* ABG pO2 68.1 L ABG HCO3 39.4 H ABG O2 Saturation 91.8 L ABG Base Excess 10.3 FiO2 6 L Sodium 138.5 Potassium 4.5 Chloride 94 L Carbon Dioxide 39 H Anion Gap 6 BUN 24 H Creatinine 1.00 Est GFR ( Amer) > 60 Est GFR (Non-Af Amer) > 60 Glucose 289 H Calcium 8.8 Magnesium 1.8 Total Bilirubin 0.4 AST 7 L ALT 13 L Alkaline Phosphatase 71 Total Protein 5.4 L Albumin 3.2 L 05/14/18 18:20 WBC RBC Hgb Hct MCV MCH MCHC RDW Plt Count Seg Neutrophils % Lymphocytes % Monocytes % Eosinophils % Basophils % Absolute Neutrophils Absolute Lymphocytes Absolute Monocytes Absolute Eosinophils Absolute Basophils Carbonic Acid 2.24 H HCO3/H2CO3 Ratio 16:1 ABG pH 7.31 L ABG pCO2 74.4 H* ABG pO2 75.7 L ABG HCO3 36.6 H ABG O2 Saturation 93.4 L ABG Base Excess 7.5 FiO2 50% Sodium Potassium Chloride Carbon Dioxide Anion Gap BUN Creatinine Est GFR ( Amer) Est GFR (Non-Af Amer) Glucose Calcium Magnesium Total Bilirubin AST ALT Alkaline Phosphatase Total Protein Albumin 05/13/18 05/13/18 05/14/18 21:45 21:45 03:45 Creatine Kinase 41 L 35 L CK-MB (CK-2) 2.57 Troponin I < 0.012 NT-Pro-B Natriuret Pep 05/14/18 05/14/18 05/14/18 03:45 10:07 10:07 Creatine Kinase 33 L CK-MB (CK-2) 2.24 2.50 Troponin I < 0.012 < 0.012 NT-Pro-B Natriuret Pep 389 EKG Comments: Shows sinus rhythm without any sustained tachycardia or bradycardia Impressions: Chest X-Ray 05/13/18 16:05 IMPRESSION: Mild vascular congestion. Assessment & Plan - Diagnosis (1) Acute and chronic respiratory failure with hypercapnia Is this a current diagnosis for this admission?: Yes (2) COPD exacerbation Is this a current diagnosis for this admission?: Yes (3) Hypertension Qualifiers: Hypertension type: essential hypertension Qualified Code(s): I10 - Essential (primary) hypertension Is this a current diagnosis for this admission?: Yes (4) Obesity (BMI 30.0-34.9) Is this a current diagnosis for this admission?: Yes (5) Tobacco abuse Is this a current diagnosis for this admission?: Yes - Notes Notes: Acute on chronic respiratory failure with hypercapnia and hypoxemia: 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 Continue with aggressive bronchodilator therapy. Patient may have element of obesity hypoventilation syndrome. Patient will possibly need trialogy. Recommend pulmonary evaluation. Patient will benefit from smoking cessation. COPD exacerbation: Treat with bronchodilators, antibiotics, steroid therapy. Hypertension: Blood pressure under reasonable control. Obesity: Patient may have obesity hypoventilation syndrome. Recommend weight loss. Tobacco abuse: Patient has been advised to quit smoking. Sleep apnea syndrome: Continue BiPAP therapy on a nightly basis and during naps. - Time Time with patient: Greater than 35 minutes - 2D echo results were reviewed with the patient. Patient questions were answered. Have requested [facility] to be [facility] in the chart but so far they are not available. More than 50% of the time spent coordinating care, discussing management plans with involved caregivers. Management plans discussed with involved personnels. Medical decision making was of moderate to high complexity , patient's has multiple comorbidities. Medications reviewed and adjusted accordingly: Yes
[2018-05-14] MEDS: FLUTICASONE/SALMETEROL DISKUS 500-50 MCG/DOSE IH SCH (22:09)
[2018-05-14] MEDS: INSULIN GLARGINE,HUM.REC.ANLOG 1,000 UNIT/10 ML UNIT SUBCUT SCH (22:09)
[2018-05-14] MEDS: ATORVASTATIN CALCIUM 80 MG TABLET PO SCH (22:10)
[2018-05-15] MEDS: IPRATROPIUM/ALBUTEROL 0.5-2.5 MG/3 ML AMPUL NEB SCH ×6 (04:23→23:55)
[2018-05-15] MEDS: LANSOPRAZOLE 30 MG TAB.RAP.DR PO SCH (05:08)
[2018-05-15 06:24] LABS: ABSOLUTE EOSINOPHILS # (AUTO) 0.1 10^3/uL (0.0-0.6); ABSOLUTE LYMPHOCYTES (AUTO) 1.3 10^3/uL (0.5-4.7); ABSOLUTE MONOCYTES (AUTO) 0.4 10^3/uL (0.1-1.4); ABSOLUTE NEUT (AUTO) 3.3 10^3/uL (1.7-8.2); BASOPHILS % (AUTO) 0.5 % (0-2); EOSINOPHILS % (AUTO) 1.9 % (0-6); HEMATOCRIT 41.2 % (37.9-51.0); HEMOGLOBIN 13.9 g/dL (13.5-17.0); LYMPHOCYTES % (AUTO) 25.6 % (13-45); MEAN CORPUSCULAR HEMOGLOBIN 32.9 pg (27.0-33.4); MEAN CORPUSCULAR HGB CONC 33.8 g/dL (32.0-36.0); MEAN CORPUSCULAR VOLUME 97 fl (80-97); MONOCYTES % (AUTO) 7.6 % (3-13); PLATELET COUNT 149 10^3/uL (150-450); RED BLOOD COUNT 4.24 10^6/uL (4.35-5.55); RED CELL DISTRIBUTION WIDTH 15.1 % (11.5-14.0); SEGMENTED NEUTROPHILS % (AUTO) 64.4 % (42-78); TOTAL CELLS COUNTED % (AUTO) 100 %; WHITE BLOOD COUNT 5.1 10^3/uL (4.0-10.5)
--- NOTE | 2018-05-15 08:33 | PDOC PROGRESS REPORT ---
Subjective Progress Note for:: 05/15/18 Subjective:: Patient is feeling better Patient's denied any chest pain denied any shortness of the breath No fever no chills Reason For Visit: COPD, ACUTE RESPIRATORY DISTRESS Physical Exam Vital Signs: Temp Pulse Resp BP Pulse Ox 97.6 F 75 18 112/67 94 05/15/18 04:11 05/15/18 04:25 05/15/18 04:25 05/15/18 04:11 05/15/18 04:25 Intake & Output 05/14/18 05/15/18 05/16/18 06:59 06:59 06:59 Intake Total 240 672 Output Total 1425 475 Balance -1185 197 Weight 95 kg 96.5 kg General appearance: PRESENT: no acute distress, well-developed, well-nourished Head exam: PRESENT: atraumatic, normocephalic Eye exam: PRESENT: conjunctiva pink, EOMI, PERRLA. ABSENT: scleral icterus Ear exam: PRESENT: normal external ear exam Mouth exam: PRESENT: moist, tongue midline Neck exam: PRESENT: full ROM. ABSENT: carotid bruit, JVD, lymphadenopathy, thyromegaly Respiratory exam: PRESENT: clear to auscultation allyson Cardiovascular exam: PRESENT: RRR. ABSENT: diastolic murmur, rubs, systolic murmur Pulses: PRESENT: normal dorsalis pedis pul, +2 pedal pulses bilateral Vascular exam: PRESENT: normal capillary refill GI/Abdominal exam: PRESENT: normal bowel sounds, soft. ABSENT: distended, guarding, mass, organolmegaly, rebound, tenderness Rectal exam: PRESENT: deferred Neurological exam: PRESENT: alert, awake, oriented to person, oriented to place , oriented to time, oriented to situation, CN II-XII grossly intact. ABSENT: motor sensory deficit Psychiatric exam: PRESENT: appropriate affect, normal mood. ABSENT: homicidal ideation, suicidal ideation Skin exam: PRESENT: dry, intact, warm. ABSENT: cyanosis, rash Results Laboratory Results: 05/15/18 05:42 05/14/18 03:45 05/14/18 05/14/18 05/15/18 11:18 18:20 05:42 WBC 5.1 RBC 4.24 L Hgb 13.9 Hct 41.2 MCV 97 MCH 32.9 MCHC 33.8 RDW 15.1 H Plt Count 149 L Seg Neutrophils % 64.4 Lymphocytes % 25.6 Monocytes % 7.6 Eosinophils % 1.9 Basophils % 0.5 Absolute Neutrophils 3.3 Absolute Lymphocytes 1.3 Absolute Monocytes 0.4 Absolute Eosinophils 0.1 Absolute Basophils 0.0 Carbonic Acid 2.25 H 2.24 H HCO3/H2CO3 Ratio 17:1 16:1 ABG pH 7.34 L 7.31 L ABG pCO2 74.6 H* 74.4 H* ABG pO2 68.1 L 75.7 L ABG HCO3 39.4 H 36.6 H ABG O2 Saturation 91.8 L 93.4 L ABG Base Excess 10.3 7.5 FiO2 6 L 50% Magnesium 05/15/18 05:42 WBC RBC Hgb Hct MCV MCH MCHC RDW Plt Count Seg Neutrophils % Lymphocytes % Monocytes % Eosinophils % Basophils % Absolute Neutrophils Absolute Lymphocytes Absolute Monocytes Absolute Eosinophils Absolute Basophils Carbonic Acid HCO3/H2CO3 Ratio ABG pH ABG pCO2 ABG pO2 ABG HCO3 ABG O2 Saturation ABG Base Excess FiO2 Magnesium 2.0 05/13/18 05/13/18 05/14/18 21:45 21:45 03:45 Creatine Kinase 41 L 35 L CK-MB (CK-2) 2.57 Troponin I < 0.012 NT-Pro-B Natriuret Pep 05/14/18 05/14/18 05/14/18 03:45 10:07 10:07 Creatine Kinase 33 L CK-MB (CK-2) 2.24 2.50 Troponin I < 0.012 < 0.012 NT-Pro-B Natriuret Pep 389 Impressions: Chest X-Ray 05/13/18 16:05 IMPRESSION: Mild vascular congestion. Assessment & Plan - Diagnosis (1) Respiratory distress Is this a current diagnosis for this admission?: Yes Plan: Patient's PCO2 is still high will continues put on the BiPAP consult the pulmonary (2) COPD with acute exacerbation Is this a current diagnosis for this admission?: Yes Plan: Will get the nebulizer treatments (3) Hypercapnia Is this a current diagnosis for this admission?: Yes Plan: Continues BiPAP (4) Hypoxia Is this a current diagnosis for this admission?: Yes Plan: Due to the severe COPD (5) Peripheral edema Is this a current diagnosis for this admission?: Yes Plan: She had a echocardiogram done will wait for the cardiology input (6) Tobacco abuse Is this a current diagnosis for this admission?: Yes Plan: Discussed with the patient about smoking counseling we will put the patient on nicotine patch (7) Noncompliance Is this a current diagnosis for this admission?: Yes Plan: pt is of very noncompliance with the medications also noncompliance with the diet (8) Type 2 diabetes mellitus Qualifiers: Diabetes mellitus senior care insulin use: with exterminator termite use Diabetes mellitus complication status: with unspecified complications Qualified Code(s) : E11.8 - Type 2 diabetes mellitus with unspecified complications; Z79.4 - termite control service representative (current) use of insulin; Z79.4 - termite control service representative (current) use of insulin; Z79.4 - [facility] (current) use of insulin; Z79.4 - termite control service representative (current) use of insulin Is this a current diagnosis for this admission?: Yes Plan: Continues to sliding-scale (9) Hypertension Qualifiers: Hypertension type: essential hypertension Qualified Code(s): I10 - Essential (primary) hypertension Is this a current diagnosis for this admission?: Yes - Time Time Spent with patient: 15-24 minutes Medications reviewed and adjusted accordingly: Yes Anticipated discharge: Home Within: within 24 hours - Inpatient Certification Based on my medical assessment, after consideration of the patient's comorbidities, presenting symptoms, or acuity I expect that the services needed warrant INPATIENT care.: Yes I certify that my determination is in accordance with my understanding of Medicare's requirements for reasonable and necessary INPATIENT services [42 CFR 412.3e].: Yes Medical Necessity: Need Close Monitoring Due to Risk of Patient Decompensation Post Hospital Care: D/C Leadite Heater 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 follow-up with the pulmonary Patients wants to go home will make arrangement of oxygen at home Okay with the pulmonary and the patient's remained stable may be go home tomorrow
[2018-05-15] MEDS ORDERED: GLUCAGON,HUMAN RECOMB 1 MG INJ IM PRN (10:15)
[2018-05-15] MEDS: TAMSULOSIN HCL 0.4 MG CAP.SR.24H PO SCH (10:15)
[2018-05-15] MEDS ORDERED: DEXTROSE 40% GEL 15 GM TUBE PO PRN (10:15)
[2018-05-15] MEDS: LEVOFLOXACIN 500 MG TABLET PO SCH (10:15)
[2018-05-15] MEDS ORDERED: DEXTROSE 50%-WATER SYRINGE 12.5 GM/25 ML DOSE IV PRN (10:15)
[2018-05-15] MEDS ORDERED: INSULIN LISPRO 100 UNIT/ML 3 ML VIAL SUBCUT PRN (10:15)
[2018-05-15] MEDS ORDERED: DEXTROSE 50%-WATER SYRINGE 25 GM/50 ML DOSE IV PRN (10:15)
[2018-05-15] MEDS ORDERED: DEXTROSE 40% GEL 15 GM TUBE X 2 PO PRN (10:15)
[2018-05-15] MEDS: ASPIRIN 81 MG TABLET, ENT COATED PO SCH (10:15)
[2018-05-15] MEDS: DILTIAZEM HCL 120 MG CAP.SR.24H PO SCH (10:15)
[2018-05-15] MEDS: FUROSEMIDE 20 MG TABLET PO SCH (10:15)
[2018-05-15] MEDS: ENOXAPARIN SODIUM INJ 40 MG/0.4 ML DISP.SYRIN SUBCUT SCH (10:16)
[2018-05-15] MEDS: INSULIN GLARGINE,HUM.REC.ANLOG 1,000 UNIT/10 ML UNIT SUBCUT SCH ×2 (10:16→21:23)
[2018-05-15] MEDS: TIOTROPIUM BROMIDE DPI 5 CAP/KIT (18 MCG/CAP) IH SCH (10:17)
--- NOTE | 2018-05-15 10:20 | EKG REPORT ---
SEVERITY:- OTHERWISE NORMAL ECG - SINUS RHYTHM BORDERLINE RIGHT AXIS DEVIATION : Confirmed by: Keaton Manning 15-May-2018 10:19:52
[2018-05-15] MEDS: FLUTICASONE/SALMETEROL DISKUS 500-50 MCG/DOSE IH SCH ×2 (10:58→21:23)
--- NOTE | 2018-05-15 12:36 | CONSULTATION REPORT E ---
Consultation Report NAME: ADÁN CHEUNG : 1965 AGE: 52Y DATE: 05/14/2018 325 A TO: KAMILLE DUNBAR M.D. FROM: ARTEMIO KAMINSKI M.D. Requesting Physician HISTORY OF PRESENT ILLNESS: The patient is a 52-year-old male who came in with acute severe COPD exacerbation, severe oxygen desaturation, hypoxemia, worsening the last few days and hence went to the emergency room. The patient has a history of hypotension, diabetes mellitus, chronic smoker. Denies any fever, chills. PAST MEDICAL HISTORY: 1. Hyperlipidemia. 2. Hypertension. 3. History of asthma. 4. COPD. 5. Pneumonia. SURGICAL HISTORY: 1. Cardiac cath. 2. Cholecystectomy. 3. Orthopedic surgery. 4. tonsillectomy. SOCIAL HISTORY: Lives alone. Smokes cigarettes almost every day, a pack a day. Denies any illicit drug use or alcohol abuse. FAMILY HISTORY: Reviewed, but not pertinent. MEDICATIONS AT HOME: Include: 1. Albuterol. 2. Aspirin. 3. Lipitor. 4. Cardizem. 5. Duoneb. 6. Flomax. 7. Advair 250. 8. Insulin. 9. Amoxicillin. 10. Spiriva. ALLERGIES: Include: 1. AMOXICILLIN. 2. CONTRAST. 3. PENICILLIN. 4. APRICOTS. REVIEW OF SYSTEMS: CONSTITUTIONAL: Denies any fever, chills, headache, or weight loss. EYES: No visual disturbances. EARS: No new changes. CARDIOVASCULAR: No chest pain, orthopnea, palpitation. RESPIRATORY: Complains about diffuse shortness of breath. Denies any hemoptysis. GASTROINTESTINAL: No abdominal pain, nausea, vomiting, diarrhea. GENITOURINARY: No dysuria or hematuria. MUSCULOSKELETAL: No joint swelling. ENDOCRINE: No cold intolerance or heat intolerance. HEMATOLOGIC/LYMPHATIC: No easy bleeding or easy bruising. PHYSICAL EXAMINATION: GENERAL: The patient appeared to be sleepy, resting, on the BiPAP machine. VITAL SIGNS: A temperature of 97.4, heart rate of 78, blood pressure is 111/52, respiratory rate is 22, O2 saturation is 99% on BiPAP of 16/12, rate of 8. Patient's spontaneous breathing rate of 18, tidal volume inhaleD and exhaleD is probably about 450 mL. EYES: No jaundice or pallor. EARS, NOSE, AND THROAT: No ear drainage noted. No nasal discharge. HEAD AND NECK: No scalp swelling. No tenderness. CHEST AND LUNGS: No wheezing. No rhonchi. No coarse crackles. CARDIOVASCULAR: S1, S2 distinct. Normal rate and regular rhythm. ABDOMEN: Flabby. Positive bowel sounds. Soft, nondistended, nontender. EXTREMITIES: No joint swelling. No cellulitis. LABORATORY: CBC done today showed white count of 5.7, hemoglobin 14, hematocrit 41.4, and platelet count is 163. Blood count done today showed pH of 7.31, PCO2 of 74.4, PO2 of 75.7, saturation of 93.4. Chemistry done today showed sodium is 138, potassium 4.5, chloride is 94, CO2 is 39, BUN is 24, creatinine is 1, glucose 289, and calcium is 8.8, magnesium is 1.8. Total bilirubin is 0.4 and direct bilirubin is 0.2. SGOT is 7, SGPT is 13, alkaline phosphatase 31, CK 35. Albumin is 3.2, total protein 5.4. Chest x-ray done yesterday showed a cardiac shadow within normal limits. No pleural effusion. Bilateral bibasilar infiltrate, most likely pleuritic change. No pneumothorax. CAT scan on 03/11/2018 showed no pleural effusions of apparent interstitial lung disease. ASSESSMENT: 1. Acute respiratory failure requiring BiPAP therapy. 2. COPD exacerbation. 3. Pneumonia right lower lobe and _ read on chest x-ray. PLAN AND RECOMMENDATIONS: 1. Agree with antibiotics. 2. Advair 500 mcg diskhaler 1 puff b.i.d. and discontinue the Advair 250. Will check the IgE level, serum IgE and serum alpha-1 antitrypsin level. DICTATING PHYSICIAN: KAMILLE DUNBAR MD,NOEMI,MPH [id number] PHY#: [id number] ID: [id number] JOB#: [id number] ACCT: [id number] cc:KAMILLE DUNBAR M.D. > MTDD
[2018-05-15] MEDS: ATORVASTATIN CALCIUM 80 MG TABLET PO SCH (21:22)
--- NOTE | 2018-05-15 22:39 | PDOC PROGRESS REPORT ---
Subjective Progress Note for:: 05/15/18 Subjective:: Patient feels much improved admission. Currently off BiPAP therapy. Patient is using it intermittently. Patient claims that a home unit is being arranged. Patient seems to be doing better with gradual improvement. Pt is denying any chest arm or neck discomfort. Patient denying any PND, orthopnea. Patient denied any sustained palpitations, dizziness, syncope, near syncope. Patient denying any fever chills. Patient denying any other significant discomfort. Patient is maintaining sinus rhythm. Review of systems: Rest review of systems negative. Medications: Medications have been reviewed. Reason For Visit: COPD, ACUTE RESPIRATORY DISTRESS Physical Exam Vital Signs: Temp Pulse Resp BP Pulse Ox 98.6 F 81 18 104/41 L 98 05/15/18 20:00 05/15/18 20:20 05/15/18 20:20 05/15/18 20:00 05/15/18 20:20 Intake & Output 05/14/18 05/15/18 05/16/18 06:59 06:59 06:59 Intake Total 240 672 880 Output Total 1425 475 Balance -1185 197 880 Weight 95 kg 96.5 kg Exam: GENERAL: well-nourished and in no acute distress. Alert and oriented x3 HEAD: Atraumatic, normocephalic. EYES: Pupils equal round and reactive to light, extraocular movements intact, sclera anicteric, conjunctiva are normal. ENT: TMs normal, nares patent, oropharynx clear without exudates. Moist mucous membranes. No oral ulcerations or bleeding gums noted NECK: supple without lymphadenopathy. Trachea is central. No cervical or axillary lymphadenopathy noted. Carotids are 2+, JVD WNL LUNGS: Respiration seems nonlabored, no significant accessory muscle action noted. Bilateral mild wheezes rales or rhonchi noted. No significant dullness noted on percussion. CHEST: Palpation of the chest wall shows no significant chest wall tenderness. 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 ABDOMEN: Soft, no significant tenderness appreciated, normoactive bowel sounds. No guarding, no rebound. No rigidity noted . No masses appreciated. EXTREMITIES: Pedal pulses are 1-2+, no calf tenderness noted. No clubbing or cyanosis. negative pedal edema noted NEUROLOGICAL: Focused neurological exam showed no significant neurologic deficit. Normal speech, no focal weakness appreciated. PSYCH: Normal mood, normal affect. Judgment and insight within normal limits. SKIN: No significant ecchymosis, skin is noted to be warm. MUSCULOSKELETAL EXAM: No significant acute joint swelling noted. Results Laboratory Results: 05/15/18 05:42 05/14/18 03:45 05/15/18 05/15/18 05:42 05:42 WBC 5.1 RBC 4.24 L Hgb 13.9 Hct 41.2 MCV 97 MCH 32.9 MCHC 33.8 RDW 15.1 H Plt Count 149 L Seg Neutrophils % 64.4 Lymphocytes % 25.6 Monocytes % 7.6 Eosinophils % 1.9 Basophils % 0.5 Absolute Neutrophils 3.3 Absolute Lymphocytes 1.3 Absolute Monocytes 0.4 Absolute Eosinophils 0.1 Absolute Basophils 0.0 Magnesium 2.0 05/13/18 05/13/18 05/14/18 21:45 21:45 03:45 Creatine Kinase 41 L 35 L CK-MB (CK-2) 2.57 Troponin I < 0.012 NT-Pro-B Natriuret Pep 05/14/18 05/14/18 05/14/18 03:45 10:07 10:07 Creatine Kinase 33 L CK-MB (CK-2) 2.24 2.50 Troponin I < 0.012 < 0.012 NT-Pro-B Natriuret Pep 389 EKG Comments: Telemetry shows sinus rhythm, no sustained tachycardia or bradycardia arrhythmias noted. Impressions: Chest X-Ray 05/13/18 16:05 IMPRESSION: Mild vascular congestion. Assessment & Plan - Diagnosis (1) Acute and chronic respiratory failure with hypercapnia Is this a current diagnosis for this admission?: Yes (2) COPD exacerbation Is this a current diagnosis for this admission?: Yes (3) Hypertension Qualifiers: Hypertension type: essential hypertension Qualified Code(s): I10 - Essential (primary) hypertension Is this a current diagnosis for this admission?: Yes (4) Obesity (BMI 30.0-34.9) Is this a current diagnosis for this admission?: Yes (5) Tobacco abuse Is this a current diagnosis for this admission?: Yes - Notes Notes: Acute on chronic respiratory failure with hypercapnia and hypoxemia: 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 Continue with aggressive bronchodilator therapy. Patient may have element of obesity hypoventilation syndrome. Patient will possibly need trialogy. Patient does not have a home unit. Recommend pulmonary evaluation. Patient will benefit from smoking cessation. COPD exacerbation: Treat with bronchodilators, antibiotics, steroid therapy. Hypertension: Blood pressure under reasonable control. Obesity: Patient may have obesity hypoventilation syndrome. Recommend weight loss. Tobacco abuse: Patient has been advised to quit smoking. Diabetes: This is being well managed by the blow molding machine operator. Hyperlipidemia: Recommend statin therapy. Sleep apnea syndrome: Continue BiPAP therapy on a nightly basis and during naps. Patient has been generally stable from cardiac standpoint. From pulmonary standpoint he has also shown significant improvement. Patient has acute on chronic respiratory failure but has improved. Patient will most likely need a home BiPAP/trilogy unit which patient tells me that pulmonary is arranging. Patient could follow-up with me for cardiology care if he wishes. - Time Time with patient: Greater than 35 minutes - More than 50% of the time spent coordinating care, discussing management plans with involved caregivers. Management plans discussed with involved personnels. Medical decision making was of moderate to high complexity, patient's has multiple comorbidities. Medications reviewed and adjusted accordingly: Yes
[2018-05-16] MEDS: IPRATROPIUM/ALBUTEROL 0.5-2.5 MG/3 ML AMPUL NEB SCH ×2 (04:11→08:30)
[2018-05-16 05:22] LABS: ABSOLUTE EOSINOPHILS # (AUTO) 0.1 10^3/uL (0.0-0.6); ABSOLUTE LYMPHOCYTES (AUTO) 1.3 10^3/uL (0.5-4.7); ABSOLUTE MONOCYTES (AUTO) 0.4 10^3/uL (0.1-1.4); ABSOLUTE NEUT (AUTO) 2.6 10^3/uL (1.7-8.2); BASOPHILS % (AUTO) 0.5 % (0-2); EOSINOPHILS % (AUTO) 2.5 % (0-6); HEMATOCRIT 40.7 % (37.9-51.0); HEMOGLOBIN 13.9 g/dL (13.5-17.0); LYMPHOCYTES % (AUTO) 29.1 % (13-45); MEAN CORPUSCULAR HEMOGLOBIN 33.1 pg (27.0-33.4); MEAN CORPUSCULAR HGB CONC 34.1 g/dL (32.0-36.0); MEAN CORPUSCULAR VOLUME 97 fl (80-97); MONOCYTES % (AUTO) 8.9 % (3-13); PLATELET COUNT 141 10^3/uL (150-450); RED CELL DISTRIBUTION WIDTH 14.9 % (11.5-14.0); TOTAL CELLS COUNTED % (AUTO) 100 %; WHITE BLOOD COUNT 4.5 10^3/uL (4.0-10.5)
[2018-05-16] MEDS: LANSOPRAZOLE 30 MG TAB.RAP.DR PO SCH (06:32)
[2018-05-16 08:14] VITALS: BP 124/72
[2018-05-16] MEDS: TAMSULOSIN HCL 0.4 MG CAP.SR.24H PO SCH (09:16)
[2018-05-16] MEDS: ENOXAPARIN SODIUM INJ 40 MG/0.4 ML DISP.SYRIN SUBCUT SCH (09:16)
[2018-05-16] MEDS: ASPIRIN 81 MG TABLET, ENT COATED PO SCH (09:16)
[2018-05-16] MEDS: LEVOFLOXACIN 500 MG TABLET PO SCH (09:16)
[2018-05-16] MEDS: DILTIAZEM HCL 120 MG CAP.SR.24H PO SCH (09:16)
[2018-05-16] MEDS: INSULIN GLARGINE,HUM.REC.ANLOG 1,000 UNIT/10 ML UNIT SUBCUT SCH (09:16)
[2018-05-16] MEDS: FUROSEMIDE 20 MG TABLET PO SCH (09:17)
[2018-05-16] MEDS: TIOTROPIUM BROMIDE DPI 5 CAP/KIT (18 MCG/CAP) IH SCH (09:17)
[2018-05-16] MEDS: FLUTICASONE/SALMETEROL DISKUS 500-50 MCG/DOSE IH SCH (09:17)
--- NOTE | 2018-05-16 16:56 | PDOC PROGRESS REPORT ---
Subjective Progress Note for:: 05/16/18 Subjective:: Patient feels much improved admission. Currently off BiPAP therapy. Patient is using it intermittently. Patient however tells me that he is going to sign out as he has some important personal business to attend with. Patient informed that he might decompensate. He told me that he will just come back to the emergency room. Patient noted to be doing reasonably well except for some shortness of breath on ambulation. Pt is denying any chest arm or neck discomfort. Patient denying any PND, orthopnea. Patient denied any sustained palpitations, dizziness, syncope, near syncope. Patient denying any fever chills. Patient denying any other significant discomfort. Patient is maintaining sinus rhythm. Review of systems: Rest review of systems negative. Medications: Medications have been reviewed. Reason For Visit: COPD, ACUTE RESPIRATORY DISTRESS Physical Exam Vital Signs: Temp Pulse Resp BP Pulse Ox 98.2 F 72 18 124/72 93 05/16/18 07:51 05/16/18 08:32 05/16/18 08:32 05/16/18 07:51 05/16/18 08:32 Intake & Output 05/15/18 05/16/18 05/17/18 06:59 06:59 06:59 Intake Total 672 1116 Output Total 475 300 Balance 197 816 Weight 96.5 kg 97.9 kg Exam: GENERAL: well-nourished and in no acute distress. Alert and oriented x3 HEAD: Atraumatic, normocephalic. EYES: LIANET, sclera anicteric, conjunctiva are normal. ENT: Moist mucous membranes. No oral ulcerations or bleeding gums noted. No obvious ear, nose or throat abnormalities noted. NECK: supple without lymphadenopathy. Trachea is central. No cervical or axillary lymphadenopathy noted. Carotids are 2+, JVD WNL LUNGS: Breath sounds clear bilaterally. Bibasilar coarse crackles and wheezing are noted. No significant dullness noted on percussion. CHEST: Palpation of the chest wall shows no significant chest wall tenderness. HEART: [place] INDUSTRIAL CHEMIST, No PSH, 1/6 ALEXANDER aortic area, 1/6 kong systolic murmur mitral area, no rubs, no gallops. ABDOMEN: Soft, no significant tenderness appreciated, normoactive bowel sounds. No guarding, no rebound. No rigidity noted . No masses appreciated. EXTREMITIES: Pedal pulses are 1-2+, no calf tenderness noted. No clubbing or cyanosis. Trace to 1+ pedal edema noted NEUROLOGICAL: Focused neurological exam showed no significant neurologic deficit. Normal speech, no focal weakness appreciated. PSYCH: Normal mood, normal affect. Judgment and insight within normal limits. SKIN: No significant ecchymosis, skin is noted to be warm. MUSCULOSKELETAL EXAM: No significant acute joint swelling noted. Results Laboratory Results: 05/16/18 04:21 05/14/18 03:45 05/16/18 05/16/18 04:21 04:21 WBC 4.5 RBC 4.20 L Hgb 13.9 Hct 40.7 MCV 97 MCH 33.1 MCHC 34.1 RDW 14.9 H Plt Count 141 L Seg Neutrophils % 59.0 Lymphocytes % 29.1 Monocytes % 8.9 Eosinophils % 2.5 Basophils % 0.5 Absolute Neutrophils 2.6 Absolute Lymphocytes 1.3 Absolute Monocytes 0.4 Absolute Eosinophils 0.1 Absolute Basophils 0.0 Magnesium 2.0 05/13/18 05/13/18 05/14/18 21:45 21:45 03:45 Creatine Kinase 41 L 35 L CK-MB (CK-2) 2.57 Troponin I < 0.012 NT-Pro-B Natriuret Pep 05/14/18 05/14/18 05/14/18 03:45 10:07 10:07 Creatine Kinase 33 L CK-MB (CK-2) 2.24 2.50 Troponin I < 0.012 < 0.012 NT-Pro-B Natriuret Pep 389 EKG Comments: Sinus rhythm without any sustained tachycardia or bradycardia Impressions: Chest X-Ray 05/13/18 16:05 IMPRESSION: Mild vascular congestion. Assessment & Plan - Diagnosis (1) Acute and chronic respiratory failure with hypercapnia Is this a current diagnosis for this admission?: Yes (2) COPD exacerbation Is this a current diagnosis for this admission?: Yes (3) Hypertension Qualifiers: Hypertension type: essential hypertension Qualified Code(s): I10 - Essential (primary) hypertension Is this a current diagnosis for this admission?: Yes (4) Obesity (BMI 30.0-34.9) Is this a current diagnosis for this admission?: Yes (5) Tobacco abuse Is this a current diagnosis for this admission?: Yes - Notes Notes: Acute on chronic respiratory failure with hypercapnia and hypoxemia: Related to COPD exacerbation. Patient has significant improvement with aggressive bronchodilator therapy. Patient may have element of obesity hypoventilation syndrome. Patient will possibly need trialogy. However patient wishes to sign out before this can be arranged. Patient would most likely come back to the emergency room otherwise he can be seen in my office. Recommend pulmonary evaluation. Patient will benefit from smoking cessation. COPD exacerbation: Treat with bronchodilators, antibiotics, steroid therapy. Hypertension: Blood pressure under reasonable control. Obesity: Patient may have obesity hypoventilation syndrome. Recommend weight loss. Tobacco abuse: Patient has been advised to quit smoking. Sleep apnea syndrome: Patient would need further evaluation and management. This can be performed as an outpatient. - Time Time with patient: Greater than 35 minutes - CODE STATUS was discussed, patient remains full code. Surrogate decision-maker unchanged. Multiple medical problems were addressed. More than 50% of the time spent coordinating care, discussing management plans with involved caregivers. Management plans discussed with involved personnels. Medical decision making was of moderate to high complexity, patient's has multiple comorbidities. Medications reviewed and adjusted accordingly: Yes
--- NOTE | 2018-05-16 17:15 | PDOC CONSULTATION ---
Consultation Consult Date: 05/13/18 Attending physician:: ARTEMIO KAMINSKI Consult reason:: Shortness of breath History of Present Illness Admission Date/PCP: 05/13/18 17:49 ARTEMIO KAMINSKI MD Patient complains of: Shortness of breath History of Present Illness: ADÁN CHEUNG is a 52 year old male with a significant history of the COPD history of the type 2 diabetes mellitus history of the hypertensions hyperlipidemia and continues to chronic smoker and a very noncompliance with the medications currently on oxygen dependent came to the emergency department because of difficulty in breathing and patient oxygen saturation is 79%'s patient was put on the BiPAP patient's currently feeling better Patient's PCO2 was 69 last visit PCO2 was 50 Patient also continues to smoke more than 1 pack cigarettes a day Patient also have some vascular congestion and peripheral edema. Patient's recently admitted for the COPD and recently went to the [facility] for further evaluations Patient's denied any chest pain today denied any fever no chills Patient actually have a like a small time for the oxygen and run out very quickly Discussed with the patient and the patient's family member in the emergency department regarding the compliance of the medication and if continues to smoke lead to more complications and patient understand very well Expressing what he wants to go home very quickly because he was some kind of a wedding coming and told the patient and family it depends on the patient's condition and how it goes. This history obtained by the sink cutter was reviewed with the patient. He basically confirm this. On repeated questioning patient denied any chest pain. He denied any prior history of heart problems. He claims that recent evaluation at [place] regarding his heart came back satisfactory. Patient denied any sustained palpitations, syncope, near syncope. Patient has noted intermittent dizziness. Past Medical History Cardiac Medical History: Reports: Hyperlipidema, Hypertension Denies: Coronary Artery Disease, Myocardial Infarction Pulmonary Medical History: Reports: Asthma, Bronchitis, Chronic Obstructive Pulmonary Disease (COPD), Pneumonia Denies: Tuberculosis Neurological Medical History: Denies: Seizures Endocrine Medical History: Reports: Diabetes Mellitus Type 2 Musculoskeltal Medical History: Denies: Arthritis Psychiatric Medical History: Reports: Depression Hematology: Denies: Anemia Past Surgical History Past Surgical History: Reports: Cardiac Catheterization, Cholecystectomy, Orthopedic Surgery - R foot, Tonsillectomy Social History Information Source: Patient Lives with: Alone Smoking Status: Current Every Day Smoker Cigarettes Packs Per Day: 0.5 Number of Years Smokin Last Time Smoked: 05/13/2018 Frequency of Alcohol Use: None Hx Recreational Drug Use: No Drugs: None Hx Prescription Drug Abuse: No - Advance Directive Resuscitation Status: Full Code Family History Family History: COPD, Hypertension Parental Family History Reviewed: Yes Children Family History Reviewed: Yes Sibling(s) Family History Reviewed.: Yes Medication/Allergy Home Medications: Albuterol Sulfate [Ventolin Hfa] 2 puff IH Q4HP PRN 04/19/18 Aspirin [Adult Low Dose Aspirin EC] 81 mg PO DAILY 04/19/18 Atorvastatin Calcium [Lipitor 80 mg Tablet] 80 mg PO QHS 04/19/18 Diltiazem HCl [Cardizem Cd 120 mg Capsule] 120 mg PO DAILY 04/19/18 Ipratropium/Albuterol Sulfate [Duoneb 3 ml Ampul] 3 ml NEB TIDP PRN 04/19/18 Tamsulosin HCl [Flomax 0.4 mg Cap.sr] 0.4 mg PO DAILY 04/19/18 Fluticasone/Salmeterol [Advair 250-50 Diskus 14 Dose/Diskus] 1 inh IH Q12 #1 inhaler 04/21/18 Insulin Glargine,Hum.rec.anlog [Lantus Insulin 100 Unit/1 ml 10 ml] 36 unit SUBCUT Q12 #1 unit 04/21/18 Tiotropium [place] [Spiriva Handihaler 5 Cap/Kit (18 Mcg/Cap)] 1 cap IH DAILY # 1 kit 04/21/18 Insulin Aspart [Novolog Flexpen] 4 units SUBCUT TID 05/13/18 Allergies/Adverse Reactions: amoxicillin [Amoxicillin] Adverse Reaction (Verified 05/13/18 15:15) Hives Iodinated Contrast- Oral and IV Dye [IV Dye, Iodine Containing] Adverse Reaction (Verified 05/13/18 15:15) Hives Penicillins Adverse Reaction (Verified 05/13/18 15:15) Hives Apricots Adverse Reaction (Mild, Uncoded 05/13/18 15:15) Hives Review of Systems Review of Systems: Please see history of present illness and past medical history as wall. Constitutional: No fever or chills reported. Dizziness positve. Head : No recent chronic headaches, recent head injury. Eyes: No recent eye pain, diplopia, redness, discharge, acute visual changes. Ears: No recent chronic ear pain, acute hearing loss, ear discharge. Oral cavity: No recent ulcerations, bleeding, oral cavity discomfort. Neck: No recent acute neck pain reported. Hematologic: No recent easy bruising or bleeding. Lymphatic: No recent lymph node enlargement reported. Cardiovascular system review: See history of present illness. Respiratory system review: No hemoptysis or blood clots in the lungs reported. Shortness of breath on exertion Gastrointestinal system review: Negative for any recent acute hematemesis, melena. Genitourinary system review: No recent acute or chronic hematuria, flank pain, UTI etc. reported. Skin system review: Negative for any recent abnormal bruising, no rash, no pruritus reported. Neurologic: No prior history of strokes, mini strokes, seizure disorder. Psychologic: No history of major psychosis or major depression reported. Musculoskeletal: Minor aches and pains reported. No acute joint swelling reported. Endocrine: No recent polyuria, polydipsia, recent heat or cold intolerance. Physical Exam Vital Signs: Temp Pulse Resp BP Pulse Ox 99.5 F 93 20 126/73 H 96 05/13/18 19:49 05/13/18 20:15 05/13/18 20:15 05/13/18 19:49 05/13/18 20:15 Intake & Output 05/12/18 05/13/18 05/14/18 06:59 06:59 06:59 Output Total 750 Balance -750 General appearance: PRESENT: no acute distress, well-developed, well-nourished Head exam: PRESENT: atraumatic, normocephalic Eye exam: PRESENT: conjunctiva pink, EOMI, PERRLA. ABSENT: scleral icterus Ear exam: PRESENT: normal external ear exam Mouth exam: PRESENT: moist, tongue midline Neck exam: ABSENT: carotid bruit, JVD, lymphadenopathy, thyromegaly Respiratory exam: PRESENT: crackles - Bibasilar coarse crackles are noted, scattered wheezing noted. ABSENT: rales, rhonchi, wheezes Cardiovascular exam: PRESENT: RRR. ABSENT: diastolic murmur, rubs, systolic murmur Pulses: PRESENT: normal dorsalis pedis pul Vascular exam: PRESENT: normal capillary refill GI/Abdominal exam: PRESENT: normal bowel sounds, soft. ABSENT: distended, guarding, mass, organolmegaly, rebound, tenderness Rectal exam: PRESENT: deferred Extremities exam: PRESENT: full ROM, other - Trace to 1+ edema. ABSENT: calf tenderness, clubbing, pedal edema Neurological exam: PRESENT: alert, awake, oriented to person, oriented to place , oriented to time, oriented to situation, CN II-XII grossly intact. ABSENT: motor sensory deficit Psychiatric exam: PRESENT: appropriate affect, normal mood. ABSENT: homicidal ideation, suicidal ideation Skin exam: PRESENT: dry, intact, warm. ABSENT: cyanosis, rash Results EKG Comments: Sinus tachycardia, no acute ST-T wave changes are noted Impressions: Chest X-Ray 05/13/18 16:05 IMPRESSION: Mild vascular congestion. Assessment & Plan - Diagnosis (1) Acute and chronic respiratory failure with hypercapnia Is this a current diagnosis for this admission?: Yes (2) COPD exacerbation Is this a current diagnosis for this admission?: Yes (3) Hyperlipidemia Qualifiers: Hyperlipidemia type: unspecified Qualified Code(s): E78.5 - Hyperlipidemia , unspecified Is this a current diagnosis for this admission?: Yes (4) Hypertension Qualifiers: Hypertension type: essential hypertension Qualified Code(s): I10 - Essential (primary) hypertension Is this a current diagnosis for this admission?: Yes (5) Tobacco abuse Is this a current diagnosis for this admission?: Yes (6) Type 2 diabetes mellitus Qualifiers: Diabetes mellitus lobsterman insulin use: with intermediate use Diabetes mellitus complication status: with unspecified complications Qualified Code(s) : E11.8 - Type 2 diabetes mellitus with unspecified complications; Z79.4 - superintendent container terminal (current) use of insulin; Z79.4 - superintendent container terminal (current) use of insulin; Z79.4 - superintendent container terminal (current) use of insulin; Z79.4 - prison (current) use of insulin Is this a current diagnosis for this admission?: Yes (7) Sleep apnea syndrome Qualifiers: Sleep apnea type: unspecified type Qualified Code(s): G47.30 - Sleep apnea , unspecified Is this a current diagnosis for this admission?: Yes - Notes Notes: Acute on chronic respiratory failure with hypercapnia and hypoxemia: 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 Continue with aggressive bronchodilator therapy. Patient may have element of obesity hypoventilation syndrome. Patient will possibly need trialogy. Recommend pulmonary evaluation. Patient will benefit from smoking cessation. COPD exacerbation: Treat with bronchodilators, antibiotics, steroid therapy. Hypertension: Blood pressure under reasonable control. Obesity: Patient may have obesity hypoventilation syndrome. Recommend weight loss. Tobacco abuse: Patient has been advised to quit smoking. Diabetes: This is being well managed by the sink cutter. Hyperlipidemia: Recommend statin therapy. Sleep apnea syndrome: Continue BiPAP therapy on a nightly basis and during naps. - Time Time Spent: 30 to 50 Minutes - More than 50% of the time spent coordinating care , discussing management plans with involved caregivers. Management plans discussed with involved personnels. Medical decision making was of moderate to high complexity, patient's has multiple comorbidities. Medications reviewed and adjusted accordingly: Yes
--- NOTE | 2018-05-19 21:21 | PDOC DISCHARGE SUMMARY ---
General - Admit/Disc Date/PCP Admission Date/Primary Care Provider: 05/13/18 17:49 ARTEMIO KAMINSKI MD Discharge Date: 05/16/18 - Discharge Diagnosis (1) COPD with acute exacerbation Is this a current diagnosis for this admission?: Yes - Additional Information Resuscitation Status: Full Code Home Medications: Albuterol Sulfate [Ventolin Hfa] 2 puff IH Q4HP PRN 04/19/18 Aspirin [Adult Low Dose Aspirin EC] 81 mg PO DAILY 04/19/18 Atorvastatin Calcium [Lipitor 80 mg Tablet] 80 mg PO QHS 04/19/18 Diltiazem HCl [Cardizem Cd 120 mg Capsule] 120 mg PO DAILY 04/19/18 Ipratropium/Albuterol Sulfate [Duoneb 3 ml Ampul] 3 ml NEB TIDP PRN 04/19/18 Tamsulosin HCl [Flomax 0.4 mg Cap.sr] 0.4 mg PO DAILY 04/19/18 Fluticasone/Salmeterol [Advair 250-50 Diskus 14 Dose/Diskus] 1 inh IH Q12 #1 inhaler 04/21/18 Insulin Glargine,Hum.rec.anlog [Lantus Insulin 100 Unit/1 ml 10 ml] 36 unit SUBCUT Q12 #1 unit 04/21/18 Tiotropium [place] [Spiriva Handihaler 5 Cap/Kit (18 Mcg/Cap)] 1 cap IH DAILY # 1 kit 04/21/18 Insulin Aspart [Novolog Flexpen] 4 units SUBCUT TID 05/13/18 History of Present Illness History of Present Illness: ADÁN CHEUNG is a 52 year old male,he was admitted for the management of COPD exacerbation Hospital Course Hospital Course: Patient was admitted for the management of COPD exacerbation, I did not see this patient today he left AMA so I could not comment any further Physical Exam Vital Signs: Temp Pulse Resp BP Pulse Ox 98.2 F 72 18 124/72 93 05/16/18 07:51 05/16/18 08:32 05/16/18 08:32 05/16/18 07:51 05/16/18 08:32 Results Laboratory Results: 05/16/18 04:21 05/14/18 03:45 05/13/18 21:45 Blood Blood Culture - Final Corynebacterium Species 05/13/18 18:21 Blood Blood Culture - Final NO GROWTH IN 5 DAYS 05/13/18 05/13/18 05/14/18 21:45 21:45 03:45 Creatine Kinase 41 L 35 L CK-MB (CK-2) 2.57 Troponin I < 0.012 NT-Pro-B Natriuret Pep 05/14/18 05/14/18 05/14/18 03:45 10:07 10:07 Creatine Kinase 33 L CK-MB (CK-2) 2.24 2.50 Troponin I < 0.012 < 0.012 NT-Pro-B Natriuret Pep 389 Impressions: Chest X-Ray 05/13/18 16:05 IMPRESSION: Mild vascular congestion. Qualifiers - * PATIENT BEING DISCHARGED WITH ANY OF THE FOLLOWING DIAGNOSIS: No VTE patient discharged on overlapping Therapy?: Yes
== END 2018-05-16 11:24 | disposition left against medical advice (07) | DRG 190 ==
LOC: ER 15:14 → EH 17:49 → 3W 19:47
PROVIDERS: ADMIT Family Medicine; ATTEND Family Medicine
PROC: 5A09457 Assistance with Respiratory Ventilation, 24-96 Consecutive Hours, Continuous Positive Airway Pressure (ICD-10-PCS; principal; 2018-05-13)
PROC: 3E0F73Z Introduction of Anti-inflammatory into Respiratory Tract, Via Natural or Artificial Opening (ICD-10-PCS; 2018-05-13)
PROC: 3E0234Z Introduction of Serum, Toxoid and Vaccine into Muscle, Percutaneous Approach (ICD-10-PCS; 2018-05-13)
DX: J44.1 Chronic obstructive pulmonary disease with (acute) exacerbation (principal); J96.22 Acute and chronic respiratory failure with hypercapnia; J96.21 Acute and chronic respiratory failure with hypoxia; J18.9 Pneumonia, unspecified organism; E11.9 Type 2 diabetes mellitus without complications; I10 Essential (primary) hypertension; E78.00 Pure hypercholesterolemia, unspecified; F17.210 Nicotine dependence, cigarettes, uncomplicated; F32.9 Major depressive disorder, single episode, unspecified; Z60.2 Problems related to living alone; R00.0 Tachycardia, unspecified; G47.30 Sleep apnea, unspecified; J44.0 Chronic obstructive pulmonary disease with (acute) lower respiratory infection; E66.9 Obesity, unspecified; Z68.30 Body mass index [BMI] 30.0-30.9, adult; Z91.14 Patient's other noncompliance with medication regimen; Z99.81 Dependence on supplemental oxygen; Z79.899 Other long term (current) drug therapy; Z90.49 Acquired absence of other specified parts of digestive tract; Z79.82 Long term (current) use of aspirin; Z79.4 Long term (current) use of insulin; Z88.1 Allergy status to other antibiotic agents; Z91.041 Radiographic dye allergy status; Z88.0 Allergy status to penicillin; Z91.018 Allergy to other foods; Z83.6 Family history of other diseases of the respiratory system; Z82.49 Family history of ischemic heart disease and other diseases of the circulatory system
CPT/HCPCS: 36415; 36600; 71046; 80053; 82550; 82553; 82785; 82803; 82962; 83690; 83735; 83880; 84484; 85025; 87040; 87077; 93005; 93010; 93306; 93970; 94640; 94660; 96374; 99291; J1650; J1815; J1940; J3490; J7620

== ENCOUNTER 2018-07-04 00:04 | Inpatient (IN) | payer MEDICARE, MEDICAID ==
[2018-07-04] MEDS ORDERED: ALBUTEROL SULFATE 0.083% NEB 2.5 MG/3 ML AMPUL NEB ONE (00:10)
[2018-07-04 00:26] LABS: VENOUS BLOOD HCO3 37.3 mmol/L (20-32); VENOUS BLOOD PH 7.24 (7.30-7.42)
[2018-07-04 00:27] LABS: ABSOLUTE BASOPHILS # (AUTO) 0.1 10^3/uL (0.0-0.2); ABSOLUTE EOSINOPHILS # (AUTO) 0.1 10^3/uL (0.0-0.6); ABSOLUTE LYMPHOCYTES (AUTO) 1.4 10^3/uL (0.5-4.7); ABSOLUTE MONOCYTES (AUTO) 0.5 10^3/uL (0.1-1.4); ABSOLUTE NEUT (AUTO) 6.9 10^3/uL (1.7-8.2); BASOPHILS % (AUTO) 0.8 % (0-2); EOSINOPHILS % (AUTO) 0.6 % (0-6); HEMATOCRIT 44.8 % (37.9-51.0); HEMOGLOBIN 14.9 g/dL (13.5-17.0); LYMPHOCYTES % (AUTO) 15.7 % (13-45); MEAN CORPUSCULAR HEMOGLOBIN 31.9 pg (27.0-33.4); MEAN CORPUSCULAR HGB CONC 33.3 g/dL (32.0-36.0); MEAN CORPUSCULAR VOLUME 96 fl (80-97); MONOCYTES % (AUTO) 5.2 % (3-13); PLATELET COUNT 185 10^3/uL (150-450); RED BLOOD COUNT 4.66 10^6/uL (4.35-5.55); RED CELL DISTRIBUTION WIDTH 13.6 % (11.5-14.0); SEGMENTED NEUTROPHILS % (AUTO) 77.7 % (42-78); TOTAL CELLS COUNTED % (AUTO) 100 %; WHITE BLOOD COUNT 8.9 10^3/uL (4.0-10.5)
[2018-07-04 00:32] LABS: VENOUS BLOOD PCO2 89.1 mmHg (35-63)
--- NOTE | 2018-07-04 00:39 | RADIOLOGY REPORT (SQ) ---
EXAM DESCRIPTION: XR CHEST 1 VIEW COMPLETED DATE/TME: 07/04/2018 00:10 CLINICAL HISTORY: 52 years, Male, dyspnea COMPARISON: 05/13/2018 chest NUMBER OF VIEWS: 1 TECHNIQUE: Portable chest LIMITATIONS: None. FINDINGS: Heart size is normal. Osteopenia. Lungs are clear. No pneumothorax IMPRESSION: No acute cardiopulmonary process copyright 2010 [employer]- All Rights Reserved
[2018-07-04 00:43] LABS: ALANINE AMINOTRANSFERASE 11 U/L (21-72); ALBUMIN 4.2 g/dL (3.5-5.0); ALKALINE PHOSPHATASE 105 U/L (38-126); ANION GAP 8 (5-19); ASPARTATE AMINO TRANSFERASE 10 U/L (17-59); BILIRUBIN,DIRECT 0.2 mg/dL (0.0-0.4); BILIRUBIN,TOTAL 0.4 mg/dL (0.2-1.3); BLOOD UREA NITROGEN 13 mg/dL (7-20); CALCIUM 9.3 mg/dL (8.4-10.2); CARBON DIOXIDE 38 mmol/L (22-30); CHLORIDE 92 mmol/L (98-107); GLUCOSE 259 mg/dL (75-110); POTASSIUM 4.7 mmol/L (3.6-5.0); SODIUM 138.2 mmol/L (137-145); TOTAL PROTEIN 6.7 g/dL (6.3-8.2)
--- NOTE | 2018-07-04 00:53 | ER Document Report ---
ED General - General Chief Complaint: Respiratory Distress Stated Complaint: SHORTNESS OF BREATH Time Seen by Provider: 07/04/18 00:10 Notes: Patient is a 52-year-old male who presents with complaint of difficulty breathing. No fevers. No vomiting. Patient has a history of COPD. He has been intubated several times in the past. His had to be admitted several times. Paramedics report that when they first arrived he was working very hard to breathe and sweating. The gave him 3 DuoNeb treatments, 2 g of magnesium, and 125 mg of Solu-Medrol. Upon arrival to the ED his work of breathing is much improved but he still feels some shortness of breath. No recent fevers or infections. No other complaints at this time. Primary care physician is Dr. Kaminski. TRAVEL OUTSIDE OF THE [place] IN LAST 30 DAYS: No - Related Data Allergies/Adverse Reactions: amoxicillin [Amoxicillin] Adverse Reaction (Verified 05/13/18 15:15) Hives Iodinated Contrast- Oral and IV Dye [IV Dye, Iodine Containing] Adverse Reaction (Verified 05/13/18 15:15) Hives Penicillins Adverse Reaction (Verified 05/13/18 15:15) Hives Apricots Adverse Reaction (Mild, Uncoded 05/13/18 15:15) Hives Past Medical History - Social History Smoking Status: Former Smoker Frequency of alcohol use: None Drug Abuse: None Family History: COPD, Hypertension - Past Medical History Cardiac Medical History: Reports: Hx Hypercholesterolemia, Hx Hypertension Denies: Hx Coronary Artery Disease, Hx Heart Attack Pulmonary Medical History: Reports: Hx Asthma, Hx Bronchitis, Hx COPD, Hx Pneumonia Denies: Hx Tuberculosis Neurological Medical History: Denies: Hx Cerebrovascular Accident, Hx Seizures Endocrine Medical History: Reports: Hx Diabetes Mellitus Type 2 Renal/ Medical History: Denies: Hx Peritoneal Dialysis Musculoskeletal Medical History: Denies Hx Arthritis Psychiatric Medical History: Reports: Hx Depression Past Surgical History: Reports: Hx Abdominal Surgery - herniax3, Hx Cardiac Catheterization, Hx Cholecystectomy, Hx Orthopedic Surgery - R foot, Hx Tonsillectomy - Immunizations Hx Diphtheria, Pertussis, Tetanus Vaccination: Yes Hx Pneumococcal Vaccination: 04/20/13 Review of Systems - Review of Systems Notes: My Normal Review Basic REVIEW OF SYSTEMS: CONSTITUTIONAL : Denies fever, chills, or sweats. Denies recent illness. EENT: Denies eye, ear, throat, or mouth pain or symptoms. Denies nasal or sinus congestion. CARDIOVASCULAR: Denies chest pain. RESPIRATORY: Difficult to breathing. GASTROINTESTINAL: Denies abdominal pain. Denies nausea, vomiting, or diarrhea. MUSCULOSKELETAL: Denies neck or back pain or joint pain or swelling. SKIN: Denies rash or skin lesions. NEUROLOGICAL: Denies altered mental status or loss of consciousness. Denies headache. Denies weakness or paralysis or loss of use of either side. Denies problems with gait or speech. Denies sensory or motor loss. ALL OTHER SYSTEMS REVIEWED AND NEGATIVE. Physical Exam - Vital signs Vitals: Resp Pulse Ox 35 H 97 07/04/18 01:53 07/04/18 01:53 - Notes Notes: General Appearance: Well nourished, alert, cooperative, mild acute distress, no obvious discomfort. Vitals: reviewed, See vital signs table. Head: no swelling or tenderness to the head Eyes: PERRL, EOMI, Conjuctiva clear Mouth: No decreasd moisture Throat: No tonsillar inflammation, No airway obstruction, No lymphadenopathy Neck: Supple, no neck tenderness, No thyromegaly Lungs: Diffuse rhonchorous breath sounds. Fair air exchange. Some mild accessory muscle use. Heart: Tachycardic rate, Regular rythm, No murmur, no rub Abdomen: Normal BS, soft, No rigidity, No abdominal tenderness, No guarding, no rebound, no abdominal masses, no organomegaly Extremities: good pulses in all extremities, no swelling or tenderness in the extremities, no edema. Skin: warm, dry, appropriate color, no rash Neuro: speech clear, oriented x 3, normal affect, responds appropriately to questions. Course - Re-evaluation Re-evalutation: 07/04/18 00:49 On reevaluation patient is feeling improved and looks well. He still has a lot of records and mucous sounding breath sounds. His venous blood gas shows hypercapnia and some respiratory acidosis which is expected based on his initial presentation. I suspect the BiPAP will probably help improve this. Clinically patient continues look improved. Await for the rest of his labs to come back and then reassess. 07/04/18 02:04 On reevaluation patient's work of breathing is much improved. His tachypnea is resolved. He still has some rhonchorous breath sounds however his air movement is normalized. At this time I feel he is appropriate for admission. We will continue him on the BiPAP being he has had rest or acidosis. I did speak with Dr. Diamond who agrees to accept the admission on behalf of Dr. Kaminski. Dictation of this chart was performed using voice recognition software; therefore, there may be some unintended grammatical errors. - Vital Signs Vital signs: Temp Pulse Resp BP Pulse Ox 35 H 97 07/04/18 01:53 07/04/18 01:53 - Laboratory Result Diagrams: 07/04/18 00:10 07/04/18 00:10 Laboratory results interpreted by me: 07/04/18 07/04/18 00:10 00:10 VBG pH 7.24 L VBG pCO2 89.1 H* VBG HCO3 37.3 H Chloride 92 L Carbon Dioxide 38 H Glucose 259 H AST 10 L ALT 11 L - EKG Interpretation by Me Additional EKG results interpreted by me: 07/04/18 00:53 EKG is reviewed and interpreted by me. EKG shows sinus tachycardia with a rate of [address] segment elevation or depression. No ischemic T wave inversions. [place] interval, QRS duration, QTc intervals are within normal range. No old EKG available for comparison. Discharge - Discharge Clinical Impression: COPD with acute exacerbation Condition: Stable Disposition: ADMITTED INPATIENT Admitting Provider: David Unit Admitted: IMCU Referrals: ARTEMIO KAMINSKI MD [Primary Care Provider] - Follow up as needed
[2018-07-04] MEDS ORDERED: GLUCAGON,HUMAN RECOMB 1 MG INJ IM PRN (07:28)
[2018-07-04] MEDS ORDERED: DEXTROSE 40% GEL 15 GM TUBE X 2 PO PRN (07:28)
[2018-07-04] MEDS ORDERED: DEXTROSE 50%-WATER SYRINGE 25 GM/50 ML DOSE IV PRN (07:28)
[2018-07-04] MEDS ORDERED: DEXTROSE 50%-WATER SYRINGE 12.5 GM/25 ML DOSE IV PRN (07:28)
[2018-07-04] MEDS ORDERED: DEXTROSE 40% GEL 15 GM TUBE PO PRN (07:28)
[2018-07-04] MEDS: INSULIN LISPRO 100 UNIT/ML 3 ML VIAL SUBCUT PRN ×3 (07:45→16:25)
[2018-07-04] MEDS: METHYLPREDNISOLONE INJ 125 MG/2 ML SDV IV SCH ×2 (07:51→15:15)
[2018-07-04] MEDS: VALSARTAN 160 MG TABLET PO SCH (10:40)
--- NOTE | 2018-07-04 17:22 | PDOC H&P ---
History of Present Illness Admission Date/PCP: 07/04/18 02:22 KARLEY KAMINSKI MD Patient complains of: Difficulty with breathing History of Present Illness: ADÁN CHEUNG is a 52 year old male patient of Dr Karley Kaminski who was brought to the ED by EMS personnel due to worsening difficulty with breathing. Patient reported that he has been short of breath for several days. He continue to smoke cigarette. He was found at home by EMS personnel with severe shortness of breath necessitating administration of IV Solu Medrol, Magnesium, and nebulizer treatment. he was placed on BiPAP support upon arrival in the ED due to his ABG suggesting hypercapnia with respiratory acidosis. he denied any associated chest pain, nasal or chest congestion, fever or chills. He admitted to prior intubation an ventilatory support. He was advised hospitalization for further evaluation and management. His morbidities include Diabetes Mellitus Type 2, Hypertension, Hyperlipidemia, Asthma, COPD, and Depression. Past Medical History Cardiac Medical History: Reports: Hyperlipidema, Hypertension Denies: Coronary Artery Disease, Myocardial Infarction Pulmonary Medical History: Reports: Asthma, Bronchitis, Chronic Obstructive Pulmonary Disease (COPD), Pneumonia Denies: Tuberculosis Neurological Medical History: Denies: Seizures Endocrine Medical History: Reports: Diabetes Mellitus Type 2 Musculoskeltal Medical History: Denies: Arthritis Psychiatric Medical History: Reports: Depression Hematology: Denies: Anemia Past Surgical History Past Surgical History: Reports: Cardiac Catheterization, Cholecystectomy, Orthopedic Surgery - R foot, Tonsillectomy Social History Smoking Status: Current Every Day Smoker Cigarettes Packs Per Day: 1 Frequency of Alcohol Use: None Hx Recreational Drug Use: No Drugs: None Hx Prescription Drug Abuse: No Family History Family History: COPD, Hypertension Parental Family History Reviewed: Yes Children Family History Reviewed: Yes Sibling(s) Family History Reviewed.: Yes Medication/Allergy Home Medications: Albuterol Sulfate [Ventolin Hfa] 2 puff IH Q4HP PRN 04/19/18 Atorvastatin Calcium [Lipitor 80 mg Tablet] 80 mg PO QHS 04/19/18 Diltiazem HCl [Cardizem Cd 120 mg Capsule] 120 mg PO DAILY 04/19/18 Tamsulosin HCl [Flomax 0.4 mg Cap.sr] 0.4 mg PO DAILY 04/19/18 Fluticasone/Salmeterol [Advair 250-50 Diskus 14 Dose/Diskus] 1 inh IH Q12 #1 inhaler 04/21/18 Insulin Glargine,Hum.rec.anlog [Lantus Insulin 100 Unit/1 ml 10 ml] 36 unit SUBCUT Q12 #1 unit 04/21/18 Tiotropium [place] [Spiriva Handihaler 5 Cap/Kit (18 Mcg/Cap)] 1 cap IH DAILY # 1 kit 04/21/18 Insulin Aspart [Novolog Flexpen] 4 units SUBCUT TID 05/13/18 Aspirin [Ecotrin 81 mg EC Tablet] 81 mg PO DAILY 07/04/18 Ipratropium/Albuterol Sulfate [Combivent Respimat 4 gm Mdi] 1 puff IH Q6 Allergies/Adverse Reactions: amoxicillin [Amoxicillin] Adverse Reaction (Verified 05/13/18 15:15) Hives Iodinated Contrast- Oral and IV Dye [IV Dye, Iodine Containing] Adverse Reaction (Verified 05/13/18 15:15) Hives Penicillins Adverse Reaction (Verified 05/13/18 15:15) Hives Apricots Adverse Reaction (Mild, Uncoded 05/13/18 15:15) Hives Review of Systems Constitutional: ABSENT: chills, fever(s), headache(s), weight gain, weight loss Eyes: ABSENT: visual disturbances Ears: ABSENT: hearing changes Nose, Mouth, and Throat: ABSENT: as per HPI, headache(s), mouth pain, sore throat, vertigo, other Cardiovascular: PRESENT: dyspnea on exertion. ABSENT: chest pain, edema, palpitations Respiratory: PRESENT: cough, dyspnea, sputum Gastrointestinal: ABSENT: abdominal pain, constipation, diarrhea, hematemesis, hematochezia, nausea, vomiting Genitourinary: ABSENT: dysuria, hematuria Musculoskeletal: PRESENT: deformity - related to multiple joint involvement with arthritis. Integumentary: ABSENT: rash, wounds Neurological: ABSENT: abnormal gait, abnormal speech, confusion, dizziness, focal weakness, syncope Endocrine: ABSENT: cold intolerance, heat intolerance, polydipsia, polyuria Hematologic/Lymphatic: ABSENT: easy bleeding, easy bruising, lymphadenopathy Allergic/Immunologic: ABSENT: seasonal rhinorrhea Physical Exam Vital Signs: Temp Pulse Resp BP Pulse Ox 98.3 F 72 20 133/65 H 88 L 07/04/18 15:04 07/04/18 15:04 07/04/18 15:04 07/04/18 15:04 07/04/18 15:04 Intake & Output 07/03/18 07/04/18 07/05/18 06:59 06:59 06:59 Intake Total 1186 Output Total 0 525 Balance 0 661 Weight 97.6 kg 97.6 kg General appearance: PRESENT: mild distress - on supplemntal oxygen via nasal cannula., obese Head exam: PRESENT: atraumatic, normocephalic Eye exam: PRESENT: conjunctiva pink, EOMI, PERRLA. ABSENT: scleral icterus Ear exam: PRESENT: normal external ear exam Mouth exam: PRESENT: moist Respiratory exam: PRESENT: decreased breath sounds, prolonged expiratory phas, rhonchi, wheezes Cardiovascular exam: PRESENT: RRR. ABSENT: diastolic murmur, rubs, systolic murmur Vascular exam: ABSENT: pallor GI/Abdominal exam: PRESENT: normal bowel sounds, soft. ABSENT: distended, guarding, mass, organolmegaly, rebound, tenderness Rectal exam: PRESENT: deferred Extremities exam: ABSENT: pedal edema Musculoskeletal exam: PRESENT: deformity Neurological exam: PRESENT: alert, awake, oriented to person, oriented to place , oriented to time, oriented to situation, CN II-XII grossly intact. ABSENT: motor sensory deficit Psychiatric exam: PRESENT: appropriate affect, normal mood. ABSENT: homicidal ideation, suicidal ideation Skin exam: PRESENT: dry, intact, warm. ABSENT: cyanosis, rash Results Impressions: Chest X-Ray 07/04/18 00:10 IMPRESSION: No acute cardiopulmonary process copyright 2011 [employer]- All Rights Reserved Assessment & Plan - Diagnosis (1) Acute and chronic respiratory failure with hypercapnia Is this a current diagnosis for this admission?: Yes Plan: Maintain on BiPAP support and other management for acute COPD. (2) COPD with acute exacerbation Is this a current diagnosis for this admission?: Yes Plan: Maintain on IV Solu Medrol and bronchodilators for exacerbated COPD management. (3) Diabetes mellitus type 2 in obese Is this a current diagnosis for this admission?: Yes Plan: Maintain on Humalog insulin sliding scale management for hyperglycemia. Continue preadmission medication for his diabetes mellitus. (4) Hypertension Qualifiers: Hypertension type: essential hypertension Qualified Code(s): I10 - Essential (primary) hypertension Is this a current diagnosis for this admission?: Yes Plan: Continue his preadmission medication for hypertension management. (5) Obesity, Class II, BMI 35-39.9 Is this a current diagnosis for this admission?: Yes Plan: Continue calorie restriction and emphasized increase activities. - Time Time Spent: 50 to 70 Minutes Medications reviewed and adjusted accordingly: Yes Anticipated discharge: Home with Homehealth Within: Other - Inpatient Certification Based on my medical assessment, after consideration of the patient's comorbidities, presenting symptoms, or acuity I expect that the services needed warrant INPATIENT care.: Yes I certify that my determination is in accordance with my understanding of Medicare's requirements for reasonable and necessary INPATIENT services [42 CFR 412.3e].: Yes Medical Necessity: Need Close Monitoring Due to Risk of Patient Decompensation, Need For IV Fluids, Need For Continuous Telemetry Monitoring, Need for Nebulizer Therapy and Monitoring of Response, Risk of Complication if Not Cared For in Hospital Post Hospital Care: D/C M[employer] Tender Documentation - Plan Summary Plan Summary: See admitting attending physician orders as per above care plan.
[2018-07-04] MEDS ORDERED: IPRATROPIUM/ALBUTEROL 0.5-2.5 MG/3 ML AMPUL NEB PRN (17:24)
[2018-07-04] MEDS ORDERED: INSULIN LISPRO 100 UNIT/ML 3 ML VIAL SUBCUT ONE (21:45)
[2018-07-04] MEDS: INSULIN GLARGINE,HUM.REC.ANLOG 1,000 UNIT/10 ML UNIT SUBCUT SCH (21:52)
[2018-07-04] MEDS: ATORVASTATIN CALCIUM 80 MG TABLET PO SCH (21:52)
[2018-07-05] MEDS: METHYLPREDNISOLONE INJ 125 MG/2 ML SDV IV SCH ×3 (05:41→13:30)
[2018-07-05] MEDS: INSULIN LISPRO 100 UNIT/ML 3 ML VIAL SUBCUT PRN ×4 (07:51→21:36)
[2018-07-05] MEDS: ASPIRIN 81 MG TABLET, ENT COATED PO SCH (10:09)
[2018-07-05] MEDS: TAMSULOSIN HCL 0.4 MG CAP.SR.24H PO SCH (10:09)
[2018-07-05] MEDS: INSULIN GLARGINE,HUM.REC.ANLOG 1,000 UNIT/10 ML UNIT SUBCUT SCH ×2 (10:10→21:35)
[2018-07-05] MEDS: VALSARTAN 160 MG TABLET PO SCH (10:10)
--- NOTE | 2018-07-05 15:28 | PDOC PROGRESS REPORT ---
Subjective Progress Note for:: 07/05/18 Subjective:: Patient reported improvement in her breathing but concern about chest congestion with increase sputum. No chest pain. No fever or chills. Reason For Visit: CHRONIC OBSTRUCTIVE PULMONARY DISEASE WITH ACUTE Physical Exam Vital Signs: Temp Pulse Resp BP Pulse Ox 98.4 F 71 16 124/68 96 07/05/18 11:17 07/05/18 14:00 07/05/18 13:51 07/05/18 11:17 07/05/18 13:51 Intake & Output 07/04/18 07/05/18 07/06/18 06:59 06:59 06:59 Intake Total 3292 Output Total 0 2225 Balance 0 1067 Weight 97.6 kg 97.6 kg General appearance: PRESENT: mild distress - remain on supplemental oxygen via nasal cannula., obese Head exam: PRESENT: atraumatic, normocephalic Eye exam: PRESENT: conjunctiva pink, EOMI, PERRLA. ABSENT: scleral icterus Ear exam: PRESENT: normal external ear exam Mouth exam: PRESENT: moist Respiratory exam: PRESENT: clear to auscultation allyson, decreased breath sounds, rhonchi - mininal expiratory phase. Cardiovascular exam: PRESENT: RRR, +S1, +S2. ABSENT: diastolic murmur, rubs, systolic murmur Vascular exam: ABSENT: pallor GI/Abdominal exam: PRESENT: normal bowel sounds, soft. ABSENT: distended, guarding, mass, organolmegaly, rebound, tenderness Extremities exam: ABSENT: pedal edema Neurological exam: PRESENT: alert, awake, oriented to person, oriented to place , oriented to time, oriented to situation, CN II-XII grossly intact. ABSENT: motor sensory deficit Psychiatric exam: PRESENT: appropriate affect, normal mood. ABSENT: homicidal ideation, suicidal ideation Skin exam: PRESENT: dry, warm Results Impressions: Chest X-Ray 07/04/18 00:10 IMPRESSION: No acute cardiopulmonary process copyright 2011 [employer]- All Rights Reserved Assessment & Plan - Diagnosis (1) Acute and chronic respiratory failure with hypercapnia Is this a current diagnosis for this admission?: Yes (2) COPD with acute exacerbation Is this a current diagnosis for this admission?: Yes (3) Diabetes mellitus type 2 in obese Is this a current diagnosis for this admission?: Yes (4) Hypertension Qualifiers: Hypertension type: essential hypertension Qualified Code(s): I10 - Essential (primary) hypertension Is this a current diagnosis for this admission?: Yes (5) Obesity, Class II, BMI 35-39.9 Is this a current diagnosis for this admission?: Yes - Time Time Spent with patient: 25-34 minutes Medications reviewed and adjusted accordingly: Yes Anticipated discharge: Home with Homehealth Within: Other - Inpatient Certification Based on my medical assessment, after consideration of the patient's comorbidities, presenting symptoms, or acuity I expect that the services needed warrant INPATIENT care.: Yes I certify that my determination is in accordance with my understanding of Medicare's requirements for reasonable and necessary INPATIENT services [42 CFR 412.3e].: Yes Medical Necessity: Need Close Monitoring Due to Risk of Patient Decompensation, Need For Continuous Telemetry Monitoring, Need for Nebulizer Therapy and Monitoring of Response, Risk of Complication if Not Cared For in Hospital Post Hospital Care: D/C Seating Captain Documentation - Plan Summary Plan Summary: Decrease IV Solu Medrol to 80 mg IV q8 hours and start on Mucinex Sr 600 mg po [id number]. Continue all other current medication management.
[2018-07-05] MEDS: GUAIFENESIN 600 MG TABLET.SA PO SCH ×2 (16:00→21:34)
[2018-07-05] MEDS: ATORVASTATIN CALCIUM 80 MG TABLET PO SCH (21:34)
[2018-07-05] MEDS: METHYLPREDNISOLONE INJ 40 MG/1 ML SDV IV SCH (22:00)
[2018-07-06] MEDS: METHYLPREDNISOLONE INJ 40 MG/1 ML SDV IV SCH ×3 (06:08→22:02)
[2018-07-06] MEDS: GUAIFENESIN 600 MG TABLET.SA PO SCH ×2 (09:45→22:02)
[2018-07-06] MEDS: ASPIRIN 81 MG TABLET, ENT COATED PO SCH (09:45)
[2018-07-06] MEDS: TAMSULOSIN HCL 0.4 MG CAP.SR.24H PO SCH (09:45)
[2018-07-06] MEDS: INSULIN GLARGINE,HUM.REC.ANLOG 1,000 UNIT/10 ML UNIT SUBCUT SCH ×2 (09:45→22:01)
[2018-07-06] MEDS: VALSARTAN 160 MG TABLET PO SCH (09:45)
[2018-07-06 10:53] LABS: ARTERIAL BLOOD BASE EXCESS 10.6 mmol/L; ARTERIAL BLOOD H2CO3 1.91 mmol/L (1.05-1.35); ARTERIAL BLOOD HCO3 38.4 mmol/L (20-24); ARTERIAL BLOOD O2 SATURATION 91.2 % (94-98); ARTERIAL BLOOD PCO2 63.4 mmHg (35-45); ARTERIAL BLOOD PO2 62.4 mmHg (80-100); ARTERIAL BLOOD TOTAL CO2 40.3 mmol/L (23-27)
[2018-07-06 10:59] LABS: ARTERIAL BLOOD FIO2 3L
--- NOTE | 2018-07-06 12:47 | PDOC PROGRESS REPORT ---
Subjective Progress Note for:: 07/06/18 Subjective:: Patient was admitted for the COPD acute exacerbations patient is currently doing fair Is denied any chest pain Patient is currently using due to a 3 L oxygen at home Reason For Visit: CHRONIC OBSTRUCTIVE PULMONARY DISEASE WITH ACUTE Physical Exam Vital Signs: Temp Pulse Resp BP Pulse Ox 98.3 F 88 16 121/62 93 07/06/18 11:53 07/06/18 11:53 07/06/18 11:53 07/06/18 11:53 07/06/18 11:53 Intake & Output 07/05/18 07/06/18 07/07/18 06:59 06:59 06:59 Intake Total 3292 1205 1231 Output Total 2225 1025 275 Balance 1067 180 956 Weight 97.6 kg 100.2 kg General appearance: PRESENT: no acute distress, well-developed, well-nourished Head exam: PRESENT: atraumatic, normocephalic Eye exam: PRESENT: conjunctiva pink, EOMI, PERRLA. ABSENT: scleral icterus Ear exam: PRESENT: normal external ear exam Mouth exam: PRESENT: moist, tongue midline Neck exam: PRESENT: full ROM. ABSENT: carotid bruit, JVD, lymphadenopathy, thyromegaly Respiratory exam: PRESENT: decreased breath sounds Cardiovascular exam: PRESENT: RRR. ABSENT: diastolic murmur, rubs, systolic murmur Pulses: PRESENT: normal dorsalis pedis pul, +2 pedal pulses bilateral Vascular exam: PRESENT: normal capillary refill GI/Abdominal exam: PRESENT: normal bowel sounds, soft. ABSENT: distended, guarding, mass, organolmegaly, rebound, tenderness Rectal exam: PRESENT: deferred Extremities exam: ABSENT: pedal edema Musculoskeletal exam: PRESENT: ambulatory Neurological exam: PRESENT: alert, awake, oriented to person, oriented to place , oriented to time, oriented to situation, CN II-XII grossly intact. ABSENT: motor sensory deficit Psychiatric exam: PRESENT: appropriate affect, normal mood. ABSENT: homicidal ideation, suicidal ideation Skin exam: PRESENT: dry, intact, warm. ABSENT: cyanosis, rash Results Laboratory Results: 07/06/18 10:14 Carbonic Acid 1.91 H HCO3/H2CO3 Ratio 20:1 ABG pH 7.40 ABG pCO2 63.4 H ABG pO2 62.4 L ABG HCO3 38.4 H ABG O2 Saturation 91.2 L ABG Base Excess 10.6 FiO2 3L Impressions: Chest X-Ray 07/04/18 00:10 IMPRESSION: No acute cardiopulmonary process copyright 2011 [employer]- All Rights Reserved Assessment & Plan - Diagnosis (1) COPD with acute exacerbation Is this a current diagnosis for this admission?: Yes Plan: Continues to nebulizer treatment will reduce to IV steroid (2) Diabetes mellitus type 2 in obese Is this a current diagnosis for this admission?: Yes Plan: Continues to current medications (3) Acute respiratory failure Qualifiers: Respiratory failure complication: hypoxia Qualified Code(s): J96.01 - Acute respiratory failure with hypoxia Is this a current diagnosis for this admission?: Yes Plan: Currently getting better we will get the ABG consult with Dr. Regalado (4) Hyperlipidemia Qualifiers: Hyperlipidemia type: unspecified Qualified Code(s): E78.5 - Hyperlipidemia , unspecified Is this a current diagnosis for this admission?: Yes (5) Hypertension Qualifiers: Hypertension type: essential hypertension Qualified Code(s): I10 - Essential (primary) hypertension Is this a current diagnosis for this admission?: Yes (6) Noncompliance Is this a current diagnosis for this admission?: Yes - Time Time Spent with patient: 15-24 minutes Medications reviewed and adjusted accordingly: Yes Anticipated discharge: Home Within: Other - Plan Summary Plan Summary: Continues to current medications
[2018-07-06] MEDS: ATORVASTATIN CALCIUM 80 MG TABLET PO SCH (22:02)
[2018-07-06] MEDS: INSULIN LISPRO 100 UNIT/ML 3 ML VIAL SUBCUT PRN (22:13)
[2018-07-07] MEDS: METHYLPREDNISOLONE INJ 40 MG/1 ML SDV IV SCH (05:54)
[2018-07-07 06:29] LABS: ABSOLUTE LYMPHOCYTES (AUTO) 0.9 10^3/uL (0.5-4.7); ABSOLUTE MONOCYTES (AUTO) 0.4 10^3/uL (0.1-1.4); ABSOLUTE NEUT (AUTO) 7.9 10^3/uL (1.7-8.2); BASOPHILS % (AUTO) 0.1 % (0-2); HEMATOCRIT 42.2 % (37.9-51.0); HEMOGLOBIN 14.6 g/dL (13.5-17.0); LYMPHOCYTES % (AUTO) 9.5 % (13-45); MEAN CORPUSCULAR HEMOGLOBIN 32.5 pg (27.0-33.4); MEAN CORPUSCULAR HGB CONC 34.5 g/dL (32.0-36.0); MEAN CORPUSCULAR VOLUME 94 fl (80-97); MONOCYTES % (AUTO) 3.9 % (3-13); PLATELET COUNT 195 10^3/uL (150-450); RED BLOOD COUNT 4.48 10^6/uL (4.35-5.55); RED CELL DISTRIBUTION WIDTH 14.3 % (11.5-14.0); SEGMENTED NEUTROPHILS % (AUTO) 86.5 % (42-78); TOTAL CELLS COUNTED % (AUTO) 100 %; WHITE BLOOD COUNT 9.2 10^3/uL (4.0-10.5)
[2018-07-07 06:47] LABS: BLOOD UREA NITROGEN 42 mg/dL (7-20); CALCIUM 8.6 mg/dL (8.4-10.2); GLUCOSE 141 mg/dL (75-110); POTASSIUM 4.7 mmol/L (3.6-5.0)
[2018-07-07 06:53] LABS: ANION GAP 5 (5-19); CARBON DIOXIDE 35 mmol/L (22-30); CHLORIDE 97 mmol/L (98-107); SODIUM 136.7 mmol/L (137-145)
[2018-07-07 09:07] LABS: ARTERIAL BLOOD BASE EXCESS 0 mmol/L; ARTERIAL BLOOD H2CO3 1.39 mmol/L (1.05-1.35); ARTERIAL BLOOD HCO3 25.8 mmol/L (20-24); ARTERIAL BLOOD O2 SATURATION 94.6 % (94-98); ARTERIAL BLOOD PCO2 46.3 mmHg (35-45); ARTERIAL BLOOD PH 7.36 (7.35-7.45); ARTERIAL BLOOD PO2 75.2 mmHg (80-100); ARTERIAL BLOOD TOTAL CO2 27.2 mmol/L (23-27)
[2018-07-07 09:08] LABS: ARTERIAL BLOOD FIO2 3L
[2018-07-07] MEDS: GUAIFENESIN 600 MG TABLET.SA PO SCH ×2 (09:29→21:23)
[2018-07-07] MEDS: ASPIRIN 81 MG TABLET, ENT COATED PO SCH (09:29)
[2018-07-07] MEDS: INSULIN GLARGINE,HUM.REC.ANLOG 1,000 UNIT/10 ML UNIT SUBCUT SCH ×2 (09:29→21:22)
[2018-07-07] MEDS: TAMSULOSIN HCL 0.4 MG CAP.SR.24H PO SCH (09:29)
[2018-07-07] MEDS: VALSARTAN 160 MG TABLET PO SCH (10:23)
[2018-07-07] MEDS: INSULIN LISPRO 100 UNIT/ML 3 ML VIAL SUBCUT PRN ×2 (12:14→17:00)
--- NOTE | 2018-07-07 12:45 | PDOC PROGRESS REPORT ---
Subjective Progress Note for:: 07/07/18 Subjective:: Is currently doing much better Patient's PCO2 is also improving will start using the BiPAP at night Patient is denied any chest pain denied any shortness of the breath Patients need a 3 L nasal cannula Patient is seen by Dr. Regalado Reason For Visit: CHRONIC OBSTRUCTIVE PULMONARY DISEASE WITH ACUTE Physical Exam Vital Signs: Temp Pulse Resp BP Pulse Ox 97.3 F 72 16 123/67 92 07/07/18 12:09 07/07/18 12:09 07/07/18 12:09 07/07/18 12:09 07/07/18 12:09 Intake & Output 07/06/18 07/07/18 07/08/18 06:59 06:59 06:59 Intake Total 1205 1931 Output Total 1025 1200 Balance 180 731 Weight 100.2 kg 100.7 kg General appearance: PRESENT: no acute distress, well-developed, well-nourished Head exam: PRESENT: atraumatic, normocephalic Eye exam: PRESENT: conjunctiva pink, EOMI, PERRLA. ABSENT: scleral icterus Ear exam: PRESENT: normal external ear exam Mouth exam: PRESENT: moist, tongue midline Neck exam: PRESENT: full ROM. ABSENT: carotid bruit, JVD, lymphadenopathy, thyromegaly Respiratory exam: PRESENT: clear to auscultation allyson Cardiovascular exam: PRESENT: RRR. ABSENT: diastolic murmur, rubs, systolic murmur Pulses: PRESENT: normal dorsalis pedis pul, +2 pedal pulses bilateral Vascular exam: PRESENT: normal capillary refill GI/Abdominal exam: PRESENT: normal bowel sounds, soft. ABSENT: distended, guarding, mass, organolmegaly, rebound, tenderness Rectal exam: PRESENT: deferred Musculoskeletal exam: PRESENT: ambulatory Neurological exam: PRESENT: alert, awake, oriented to person, oriented to place , oriented to time, oriented to situation, CN II-XII grossly intact. ABSENT: motor sensory deficit Psychiatric exam: PRESENT: appropriate affect, normal mood. ABSENT: homicidal ideation, suicidal ideation Skin exam: PRESENT: dry, intact, warm. ABSENT: cyanosis, rash Results Laboratory Results: 07/07/18 05:45 07/07/18 05:45 07/07/18 07/07/18 07/07/18 05:45 05:45 08:16 WBC 9.2 RBC 4.48 Hgb 14.6 Hct 42.2 MCV 94 MCH 32.5 MCHC 34.5 RDW 14.3 H Plt Count 195 Seg Neutrophils % 86.5 H Lymphocytes % 9.5 L Monocytes % 3.9 Eosinophils % 0.0 Basophils % 0.1 Absolute Neutrophils 7.9 Absolute Lymphocytes 0.9 Absolute Monocytes 0.4 Absolute Eosinophils 0.0 Absolute Basophils 0.0 Carbonic Acid 1.39 H HCO3/H2CO3 Ratio 18:1 ABG pH 7.36 ABG pCO2 46.3 H ABG pO2 75.2 L ABG HCO3 25.8 H ABG O2 Saturation 94.6 ABG Base Excess 0 FiO2 3L Sodium 136.7 L Potassium 4.7 Chloride 97 L Carbon Dioxide 35 H Anion Gap 5 BUN 42 H Creatinine 0.80 Est GFR ( Amer) > 60 Est GFR (Non-Af Amer) > 60 Glucose 141 H Calcium 8.6 Impressions: Chest X-Ray 07/04/18 00:10 IMPRESSION: No acute cardiopulmonary process copyright 2011 [employer]- All Rights Reserved Assessment & Plan - Diagnosis (1) COPD with acute exacerbation Is this a current diagnosis for this admission?: Yes Plan: d/c Solu-Medrol currently doing well (2) Diabetes mellitus type 2 in obese Is this a current diagnosis for this admission?: Yes Plan: Continues to current medications (3) Acute respiratory failure Qualifiers: Respiratory failure complication: hypoxia Qualified Code(s): J96.01 - Acute respiratory failure with hypoxia Is this a current diagnosis for this admission?: Yes Plan: This with the Dr. Regalado about patients need a BiPAP at night (4) Hyperlipidemia Qualifiers: Hyperlipidemia type: unspecified Qualified Code(s): E78.5 - Hyperlipidemia , unspecified Is this a current diagnosis for this admission?: Yes (5) Hypertension Qualifiers: Hypertension type: essential hypertension Qualified Code(s): I10 - Essential (primary) hypertension Is this a current diagnosis for this admission?: Yes (6) Noncompliance Is this a current diagnosis for this admission?: Yes - Time Time Spent with patient: 15-24 minutes Medications reviewed and adjusted accordingly: Yes Anticipated discharge: Home Within: within 24 hours - Plan Summary Plan Summary: Continues to current medications
[2018-07-07] MEDS ORDERED: ALBUTEROL SULFATE 0.042% NEB (1.25 MG/3 ML) AMPUL NEB PRN (15:36)
[2018-07-07] MEDS ORDERED: PREDNISONE 20 MG TABLET PO SCH (18:00)
--- NOTE | 2018-07-07 18:04 | PDOC CONSULTATION ---
Consultation Consult Date: 07/06/18 Attending physician:: ARTEMIO KAMINSKI Consult reason:: Dyspnea History of Present Illness Admission Date/PCP: 07/04/18 02:22 ARTEMIO KAMINSKI MD History of Present Illness: ADÁN CHEUNG is a 52 year old male, admitted to the ED for increasing shortness of breath and tightness in his chest for the last few days smoked 2 packs a day for the last 40 years has a cough that is dry nonproductive his PPD status is negative he denies hemoptysis no history of chronic lung disease as a child or adolescent. 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 He has recent travel to [place]. He denies pets. He lives in his in a mobile home with his mom home is somewhat old denies anginal chest pain sleeps on one pillow no occasional PND occasional nocturnal cough occasional edema is unaware of snoring admits to restless sleep nocturia 2-3 times per night and he admits to unrestful sleep and excessive daytime somnolence Past Medical History Cardiac Medical History: Reports: Hyperlipidema, Hypertension Denies: Coronary Artery Disease, Myocardial Infarction Pulmonary Medical History: Reports: Asthma, Bronchitis, Chronic Obstructive Pulmonary Disease (COPD), Pneumonia Denies: Tuberculosis Neurological Medical History: Denies: Seizures Endocrine Medical History: Reports: Diabetes Mellitus Type 2 Renal/ Medical History: Reports: Nephrolithiasis Malignancy Medical History: Reports: None GI Medical History: Denies: Cirrhosis, Crohn's Disease, Ulcerative Colitis Musculoskeltal Medical History: Denies: Arthritis Psychiatric Medical History: Reports: Depression, General Anxiety Disorder Traumatic Medical History: Denies: Traumatic Brain Injury Hematology: Denies: Anemia Infectious Medical History: Denies: Hepatitis B, Hepatitis C Past Surgical History Past Surgical History: Reports: Cardiac Catheterization, Cholecystectomy, Orthopedic Surgery - R foot, Tonsillectomy Social History Information Source: Patient, [facility] Records Smoking Status: Current Every Day Smoker Cigarettes Packs Per Day: 1 Passive smoke exposure as: Both Frequency of Alcohol Use: None Hx Recreational Drug Use: No Drugs: None Hx Prescription Drug Abuse: No Do you have pets?: No Have you had any respiratory illnesses as a child?: No Have you been exposed to any sick contacts recently?: No Have you had any recent respiratory illnesses?: No Have you travelled outside of [place] in the past 12 months?: No Family History Family History: COPD, Hypertension Parental Family History Reviewed: Yes Children Family History Reviewed: Yes Sibling(s) Family History Reviewed.: Yes Medication/Allergy Home Medications: Albuterol Sulfate [Ventolin Hfa] 2 puff IH Q4HP PRN 04/19/18 Atorvastatin Calcium [Lipitor 80 mg Tablet] 80 mg PO QHS 04/19/18 Diltiazem HCl [Cardizem Cd 120 mg Capsule] 120 mg PO DAILY 04/19/18 Tamsulosin HCl [Flomax 0.4 mg Cap.sr] 0.4 mg PO DAILY 04/19/18 Fluticasone/Salmeterol [Advair 250-50 Diskus 14 Dose/Diskus] 1 inh IH Q12 #1 inhaler 04/21/18 Insulin Glargine,Hum.rec.anlog [Lantus Insulin 100 Unit/1 ml 10 ml] 36 unit SUBCUT Q12 #1 unit 04/21/18 Tiotropium [place] [Spiriva Handihaler 5 Cap/Kit (18 Mcg/Cap)] 1 cap IH DAILY # 1 kit 04/21/18 Insulin Aspart [Novolog Flexpen] 4 units SUBCUT TID 05/13/18 Aspirin [Ecotrin 81 mg EC Tablet] 81 mg PO DAILY 07/04/18 Ipratropium/Albuterol Sulfate [Combivent Respimat 4 gm Mdi] 1 puff IH Q6 Allergies/Adverse Reactions: amoxicillin [Amoxicillin] Adverse Reaction (Verified 05/13/18 15:15) Hives Iodinated Contrast- Oral and IV Dye [IV Dye, Iodine Containing] Adverse Reaction (Verified 05/13/18 15:15) Hives Penicillins Adverse Reaction (Verified 05/13/18 15:15) Hives Apricots Adverse Reaction (Mild, Uncoded 05/13/18 15:15) Hives Review of Systems Constitutional: ABSENT: night sweats, weight gain, weight loss Eyes: ABSENT: visual disturbances Ears: ABSENT: hearing changes Nose, Mouth, and Throat: ABSENT: sore throat Cardiovascular: PRESENT: dyspnea on exertion. ABSENT: orthropnea, palpitations Respiratory: PRESENT: cough, dyspnea. ABSENT: hemoptysis Gastrointestinal: ABSENT: abdominal pain, bloating, coffee ground emesis, dysphagia, hematemesis, hematochezia, melena Genitourinary: ABSENT: dysuria, hematuria Musculoskeletal: ABSENT: deformity, joint swelling Integumentary: ABSENT: pruritus, rash Neurological: ABSENT: abnormal gait, abnormal movements, abnormal speech, confusion, focal weakness, frequent falls, lack of coordination, memory loss Endocrine: ABSENT: cold intolerance, heat intolerance Hematologic/Lymphatic: ABSENT: lymphadenopathy Allergic/Immunologic: ABSENT: seasonal rhinorrhea Physical Exam Vital Signs: Temp Pulse Resp BP Pulse Ox 97.6 F 67 20 117/58 L 99 07/07/18 15:31 07/07/18 15:31 07/07/18 15:31 07/07/18 15:31 07/07/18 15:31 Intake & Output 07/06/18 07/07/18 07/08/18 06:59 06:59 06:59 Intake Total 1205 1931 2239 Output Total 1025 1200 200 Balance 912 749 1418 Weight 100.2 kg 100.7 kg General appearance: PRESENT: no acute distress, cooperative, disheveled, morbidly obese Head exam: PRESENT: atraumatic, normocephalic Eye exam: PRESENT: conjunctiva pale, EOMI. ABSENT: nystagmus, scleral icterus Mouth exam: PRESENT: dry mucosa, neck supple, tongue midline Neck exam: ABSENT: carotid bruit, JVD, lymphadenopathy, thyromegaly, tracheal deviation, tracheostomy Respiratory exam: PRESENT: decreased breath sounds, prolonged expiratory phas, rhonchi, unlabored, wheezes. ABSENT: stridor, tachypnea Cardiovascular exam: PRESENT: RRR, +S1, +S2. ABSENT: tachycardia Pulses: PRESENT: normal radial pulses GI/Abdominal exam: PRESENT: soft. ABSENT: tenderness Extremities exam: PRESENT: pedal edema. ABSENT: calf tenderness, clubbing, joint swelling Musculoskeletal exam: ABSENT: deformity, dislocation Neurological exam: PRESENT: alert, awake Psychiatric exam: PRESENT: appropriate affect Skin exam: PRESENT: dry, warm Results Laboratory Results: 07/07/18 05:45 07/07/18 05:45 07/07/18 07/07/18 07/07/18 05:45 05:45 08:16 WBC 9.2 RBC 4.48 Hgb 14.6 Hct 42.2 MCV 94 MCH 32.5 MCHC 34.5 RDW 14.3 H Plt Count 195 Seg Neutrophils % 86.5 H Lymphocytes % 9.5 L Monocytes % 3.9 Eosinophils % 0.0 Basophils % 0.1 Absolute Neutrophils 7.9 Absolute Lymphocytes 0.9 Absolute Monocytes 0.4 Absolute Eosinophils 0.0 Absolute Basophils 0.0 Carbonic Acid 1.39 H HCO3/H2CO3 Ratio 18:1 ABG pH 7.36 ABG pCO2 46.3 H ABG pO2 75.2 L ABG HCO3 25.8 H ABG O2 Saturation 94.6 ABG Base Excess 0 FiO2 3L Sodium 136.7 L Potassium 4.7 Chloride 97 L Carbon Dioxide 35 H Anion Gap 5 BUN 42 H Creatinine 0.80 Est GFR ( Amer) > 60 Est GFR (Non-Af Amer) > 60 Glucose 141 H Calcium 8.6 Impressions: Chest X-Ray 07/04/18 00:10 IMPRESSION: No acute cardiopulmonary process copyright 2011 [employer]- All Rights Reserved Assessment & Plan - Diagnosis (1) Obesity, Class II, BMI 35-39.9 Is this a current diagnosis for this admission?: Yes Plan: Unchanged dietitian and consider bariatric surgery (2) Acute and chronic respiratory failure with hypercapnia Is this a current diagnosis for this admission?: Yes Plan: This patient would benefit from noninvasive mechanical ventilation via the trilogy AVAPS/AE and faster responding AVAPS rates due to his frequent exacerbations of COPD hypercapnia bi-pap would not be as beneficial. The trilogy is able to provide a target tidal volume and also adjusting the EPAP pressures to maintain a patent airway as well as an oral backup rate this machine will help improve PaCO2 levels. The severity of the patient's condition will lead to future hospitalizations and readmissions as well as life- threatening situations without the use of this device day and night. Trilogy home vent needed for hypercapnic respiratory failure. Family Medical or [facility] to follow for trilogy set up. (3) COPD exacerbation Is this a current diagnosis for this admission?: Yes Plan: Systemic steroids inhaled corticosteroids long-acting beta agonist long-acting muscarinic agents and short acting beta agonist as needed (4) Hypertension Qualifiers: Hypertension type: essential hypertension Qualified Code(s): I10 - Essential (primary) hypertension Is this a current diagnosis for this admission?: Yes Plan: sTable at this time (5) Sleep apnea syndrome Qualifiers: Sleep apnea type: unspecified type Qualified Code(s): G47.30 - Sleep apnea , unspecified Is this a current diagnosis for this admission?: Yes Plan: Should be covered by his trilogy chronic respiratory failure
[2018-07-07 20:26] LABS: ARTERIAL BLOOD BASE EXCESS 7.1 mmol/L; ARTERIAL BLOOD H2CO3 1.71 mmol/L (1.05-1.35); ARTERIAL BLOOD PCO2 56.8 mmHg (35-45); ARTERIAL BLOOD PO2 76.8 mmHg (80-100); ARTERIAL BLOOD TOTAL CO2 35.7 mmol/L (23-27)
[2018-07-07 20:28] LABS: ARTERIAL BLOOD FIO2 32%
[2018-07-07] MEDS: ATORVASTATIN CALCIUM 80 MG TABLET PO SCH (21:23)
[2018-07-08 07:37] LABS: BLOOD UREA NITROGEN 44 mg/dL (7-20); CALCIUM 8.4 mg/dL (8.4-10.2); GLUCOSE 88 mg/dL (75-110); POTASSIUM 4.3 mmol/L (3.6-5.0)
[2018-07-08 07:43] LABS: CARBON DIOXIDE 36 mmol/L (22-30); CHLORIDE 99 mmol/L (98-107); SODIUM 137.1 mmol/L (137-145)
[2018-07-08 07:44] LABS: ANION GAP 2 (5-19)
[2018-07-08 08:57] LABS: ARTERIAL BLOOD BASE EXCESS 8.2 mmol/L; ARTERIAL BLOOD H2CO3 2.01 mmol/L (1.05-1.35); ARTERIAL BLOOD HCO3 36.6 mmol/L (20-24); ARTERIAL BLOOD O2 SATURATION 93.7 % (94-98); ARTERIAL BLOOD PCO2 66.8 mmHg (35-45); ARTERIAL BLOOD PH 7.36 (7.35-7.45); ARTERIAL BLOOD PO2 73.5 mmHg (80-100); ARTERIAL BLOOD TOTAL CO2 38.6 mmol/L (23-27)
[2018-07-08 09:00] LABS: ARTERIAL BLOOD FIO2 3 L
--- NOTE | 2018-07-08 09:21 | PDOC PROGRESS REPORT ---
Subjective Progress Note for:: 07/08/18 Subjective:: Is currently doing much better Patient's PCO2 is also improving will start using the BiPAP at night Patient is denied any chest pain denied any shortness of the breath Patients need a 3 L nasal cannula Patient is seen by Dr. Regalado Reason For Visit: CHRONIC OBSTRUCTIVE PULMONARY DISEASE WITH ACUTE Physical Exam Vital Signs: Temp Pulse Resp BP Pulse Ox 98.4 F 87 16 117/60 92 07/08/18 08:04 07/08/18 08:04 07/08/18 08:04 07/08/18 08:04 07/08/18 08:04 Intake & Output 07/07/18 07/08/18 07/09/18 06:59 06:59 06:59 Intake Total 1931 2479 Output Total 1200 600 Balance 731 1879 Weight 100.7 kg 101 kg General appearance: PRESENT: no acute distress, well-developed, well-nourished Head exam: PRESENT: atraumatic, normocephalic Eye exam: PRESENT: conjunctiva pink, EOMI, PERRLA. ABSENT: scleral icterus Ear exam: PRESENT: normal external ear exam Mouth exam: PRESENT: moist, tongue midline Neck exam: PRESENT: full ROM. ABSENT: carotid bruit, JVD, lymphadenopathy, thyromegaly Respiratory exam: PRESENT: clear to auscultation allyson Cardiovascular exam: PRESENT: RRR. ABSENT: diastolic murmur, rubs, systolic murmur Pulses: PRESENT: normal dorsalis pedis pul, +2 pedal pulses bilateral Vascular exam: PRESENT: normal capillary refill GI/Abdominal exam: PRESENT: normal bowel sounds, soft. ABSENT: distended, guarding, mass, organolmegaly, rebound, tenderness Rectal exam: PRESENT: deferred Extremities exam: ABSENT: pedal edema Musculoskeletal exam: PRESENT: ambulatory Neurological exam: PRESENT: alert, awake, oriented to person, oriented to place, oriented to time, oriented to situation, CN II-XII grossly intact. ABSENT: motor sensory deficit Psychiatric exam: PRESENT: appropriate affect, normal mood. ABSENT: homicidal i deation, suicidal ideation Skin exam: PRESENT: dry, intact, warm. ABSENT: cyanosis, rash Results Laboratory Results: 07/07/18 05:45 07/08/18 06:11 07/07/18 07/08/18 07/08/18 20:05 06:11 08:50 Carbonic Acid 1.71 H 2.01 H HCO3/H2CO3 Ratio 19:1 18:1 ABG pH 7.40 7.36 ABG pCO2 56.8 H 66.8 H ABG pO2 76.8 L 73.5 L ABG HCO3 34.0 H 36.6 H ABG O2 Saturation 95.0 93.7 L ABG Base Excess 7.1 8.2 FiO2 32% 3 L Sodium 137.1 Potassium 4.3 Chloride 99 Carbon Dioxide 36 H Anion Gap 2 L BUN 44 H Creatinine 0.83 Est GFR ( Amer) > 60 Est GFR (Non-Af Amer) > 60 Glucose 88 Calcium 8.4 Impressions: Chest X-Ray 07/04/18 00:10 IMPRESSION: No acute cardiopulmonary process copyright 2011 [employer]- All Rights Reserved Assessment & Plan - Diagnosis (1) COPD with acute exacerbation Is this a current diagnosis for this admission?: Yes Plan: d/c Solu-Medrol currently doing well (2) Diabetes mellitus type 2 in obese Is this a current diagnosis for this admission?: Yes Plan: Continues to current medications (3) Acute respiratory failure Qualifiers: Respiratory failure complication: hypoxia Qualified Code(s): J96.01 - Acute respiratory failure with hypoxia Is this a current diagnosis for this admission?: Yes Plan: This with the Dr. Regalado about patients need a BiPAP at night (4) Hyperlipidemia Qualifiers: Hyperlipidemia type: unspecified Qualified Code(s): E78.5 - Hyperlipidemia, unspecified Is this a current diagnosis for this admission?: Yes (5) Hypertension Qualifiers: Hypertension type: essential hypertension Qualified Code(s): I10 - Essential (primary) hypertension Is this a current diagnosis for this admission?: Yes (6) Noncompliance Is this a current diagnosis for this admission?: Yes - Time Time Spent with patient: 15-24 minutes Medications reviewed and adjusted accordingly: Yes Anticipated discharge: Home Within: Other - Plan Summary Plan Summary: We discussed with the Dr. Regalado about the further plan
[2018-07-08] MEDS: PREDNISONE 20 MG TABLET PO SCH (09:36)
[2018-07-08] MEDS: ASPIRIN 81 MG TABLET, ENT COATED PO SCH (09:36)
[2018-07-08] MEDS: GUAIFENESIN 600 MG TABLET.SA PO SCH ×2 (09:36→21:36)
[2018-07-08] MEDS: INSULIN GLARGINE,HUM.REC.ANLOG 1,000 UNIT/10 ML UNIT SUBCUT SCH ×2 (09:36→21:36)
[2018-07-08] MEDS: TAMSULOSIN HCL 0.4 MG CAP.SR.24H PO SCH (09:37)
[2018-07-08] MEDS: VALSARTAN 160 MG TABLET PO SCH (09:38)
[2018-07-08] MEDS ORDERED: FLUTICASONE/UMECLIDIN/VILANTER 100-62.5-25 MCG/DOSE IH SCH (15:00)
[2018-07-08] MEDS: INSULIN LISPRO 100 UNIT/ML 3 ML VIAL SUBCUT PRN ×2 (16:36→23:46)
[2018-07-08] MEDS: ATORVASTATIN CALCIUM 80 MG TABLET PO SCH (21:36)
[2018-07-09 07:29] LABS: ANION GAP 5 (5-19); BLOOD UREA NITROGEN 43 mg/dL (7-20); CALCIUM 8.6 mg/dL (8.4-10.2); CARBON DIOXIDE 35 mmol/L (22-30); CHLORIDE 95 mmol/L (98-107); GLUCOSE 74 mg/dL (75-110); POTASSIUM 4.4 mmol/L (3.6-5.0); SODIUM 135.3 mmol/L (137-145)
[2018-07-09] MEDS: GUAIFENESIN 600 MG TABLET.SA PO SCH (11:09)
[2018-07-09] MEDS: PREDNISONE 20 MG TABLET PO SCH (11:09)
[2018-07-09] MEDS: TAMSULOSIN HCL 0.4 MG CAP.SR.24H PO SCH (11:09)
[2018-07-09] MEDS: VALSARTAN 160 MG TABLET PO SCH (11:09)
[2018-07-09] MEDS: INSULIN GLARGINE,HUM.REC.ANLOG 1,000 UNIT/10 ML UNIT SUBCUT SCH (11:09)
[2018-07-09] MEDS: ASPIRIN 81 MG TABLET, ENT COATED PO SCH (11:09)
[2018-07-09 13:00] VITALS: BP 121/60
--- NOTE | 2018-07-09 13:02 | PDOC DISCHARGE SUMMARY ---
General - Admit/Disc Date/PCP Admission Date/Primary Care Provider: 07/04/18 02:22 ARTEMIO KAMINSKI MD Discharge Date: 07/09/18 - Discharge Diagnosis (1) COPD with acute exacerbation Is this a current diagnosis for this admission?: Yes Summary: Continues to current medications follow with Dr. Regalado continues to nebulizer treatment as needed (2) Diabetes mellitus type 2 in obese Is this a current diagnosis for this admission?: Yes Summary: Patients currently in a tight control in the hospital will cut down the insulin Lantus 20 units at night and discussed with the patient is to slowly increase twice a day until the blood sugars keep around 150 range in the morning watch for hypoglycemia (3) Acute respiratory failure Is this a current diagnosis for this admission?: Yes Summary: continue trlogy (4) Hyperlipidemia Is this a current diagnosis for this admission?: Yes Summary: There are stable (5) Hypertension Is this a current diagnosis for this admission?: Yes Summary: Hold the blood pressure medications due to running low (6) Noncompliance Is this a current diagnosis for this admission?: Yes - Additional Information Discharge Diet: Cardiac, Diabetic Discharge Activity: Activity As Tolerated Prescriptions: Fluticasone/Umeclidin/Vilanter [Trelegy 100-62.5-25 Mcg Ellipta 14 Dose/Dpi] 1 inh IH DAILY #1 inhaler Guaifenesin [Mucinex Sr 600 mg Tablet.sa] 600 mg PO Q12 #60 tablet.sa Home Medications: Albuterol Sulfate [Ventolin Hfa] 2 puff IH Q4HP PRN 04/19/18 Atorvastatin Calcium [Lipitor 80 mg Tablet] 80 mg PO QHS 04/19/18 Diltiazem HCl [Cardizem Cd 120 mg Capsule] 120 mg PO DAILY 04/19/18 Tamsulosin HCl [Flomax 0.4 mg Cap.sr] 0.4 mg PO DAILY 04/19/18 Insulin Glargine,Hum.rec.anlog [Lantus Insulin 100 Unit/1 ml 10 ml] 36 unit SUBCUT Q12 #1 unit 04/21/18 Insulin Aspart [Novolog Flexpen] 4 units SUBCUT TID 05/13/18 Aspirin [Ecotrin 81 mg EC Tablet] 81 mg PO DAILY 07/04/18 Fluticasone/Umeclidin/Vilanter [Trelegy 100-62.5-25 Mcg Ellipta 14 Dose/Dpi] 1 inh IH DAILY #1 inhaler 07/09/18 Guaifenesin [Mucinex Sr 600 mg Tablet.sa] 600 mg PO Q12 #60 tablet.sa 07/09/18 History of Present Illness History of Present Illness: ADÁN CHEUNG is a 52 year old male Patient came to the emergency department shortness of the breath respiratory failure and COPD acute exacerbations Hospital Course Hospital Course: Patient is came to the emergency department with a complaining of shortness of the breath with COPD acute exacerbation and chronic respiratory failure Patients treated with the IV steroid and nebulizer treatment Patient have hypercapnic respiratory failure treated with the BiPAP in the Dr. Fabricio ponce patient's pH is all stable and CO2 is all stable Patient is back to the normal requiring 3 L nasal cannula oxygen's Patient's blood sugar was running low and adjust the insulin Patient is otherwise remained stable Patient is walking the hallway without any problem Patient's p.o. intake is fair Discussed with the patient about compliance of the medication and avoid all the smoking Patient understands very well Also arranged for home health Physical Exam Vital Signs: Temp Pulse Resp BP Pulse Ox 97.9 F 89 18 113/61 91 L 07/09/18 07:44 07/09/18 11:30 07/09/18 11:30 07/09/18 07:45 07/09/18 11:30 Intake & Output 07/08/18 07/09/18 07/10/18 06:59 06:59 06:59 Intake Total 2479 2105 Output Total 600 900 Balance 1879 1205 Weight 101 kg 103.1 kg General appearance: PRESENT: no acute distress, well-developed, well-nourished Head exam: PRESENT: atraumatic, normocephalic Eye exam: PRESENT: conjunctiva pink, EOMI, PERRLA. ABSENT: scleral icterus Ear exam: PRESENT: normal external ear exam Mouth exam: PRESENT: moist, tongue midline Neck exam: PRESENT: full ROM. ABSENT: carotid bruit, JVD, lymphadenopathy, thyromegaly Respiratory exam: PRESENT: clear to auscultation allyson Cardiovascular exam: PRESENT: RRR. ABSENT: diastolic murmur, rubs, systolic murmur Pulses: PRESENT: normal dorsalis pedis pul, +2 pedal pulses bilateral Vascular exam: PRESENT: normal capillary refill GI/Abdominal exam: PRESENT: normal bowel sounds, soft. ABSENT: distended, guarding, mass, organolmegaly, rebound, tenderness Rectal exam: PRESENT: deferred Extremities exam: ABSENT: pedal edema Musculoskeletal exam: PRESENT: ambulatory Neurological exam: PRESENT: alert, awake, oriented to person, oriented to place, oriented to time, oriented to situation, CN II-XII grossly intact. ABSENT: motor sensory deficit Psychiatric exam: PRESENT: appropriate affect, normal mood. ABSENT: homicidal ideation, suicidal ideation Skin exam: PRESENT: dry, intact, warm. ABSENT: cyanosis, rash Results Laboratory Results: 07/07/18 05:45 07/09/18 05:59 07/09/18 05:59 Sodium 135.3 L Potassium 4.4 Chloride 95 L Carbon Dioxide 35 H Anion Gap 5 BUN 43 H Creatinine 0.94 Est GFR ( Amer) > 60 Est GFR (Non-Af Amer) > 60 Glucose 74 L Calcium 8.6 Impressions: Chest X-Ray 07/04/18 00:10 IMPRESSION: No acute cardiopulmonary process copyright 2011 [employer] [facility] [employer]- All Rights Reserved Qualifiers - * PATIENT BEING DISCHARGED WITH ANY OF THE FOLLOWING DIAGNOSIS: No VTE patient discharged on overlapping Therapy?: Yes Plan Time Spent: Greater than 30 Minutes - Follow in office in 1 week follow with the pulmonary
--- NOTE | 2018-07-20 12:49 | PDOC PROGRESS REPORT ---
Subjective Progress Note for:: 07/08/18 Subjective:: Feeling better Reason For Visit: CHRONIC OBSTRUCTIVE PULMONARY DISEASE WITH ACUTE Physical Exam Vital Signs: Temp Pulse Resp BP Pulse Ox 97.9 F 105 H 18 121/60 91 L 07/09/18 12:59 07/09/18 14:00 07/09/18 12:59 07/09/18 12:59 07/09/18 12:59 General appearance: PRESENT: no acute distress, cooperative, disheveled, morbidly obese Head exam: PRESENT: atraumatic, normocephalic Eye exam: PRESENT: conjunctiva pale, EOMI. ABSENT: nystagmus, scleral icterus Mouth exam: PRESENT: dry mucosa, neck supple, tongue midline Teeth exam: PRESENT: edentulous Neck exam: ABSENT: carotid bruit, JVD, lymphadenopathy, thyromegaly, tracheal deviation, tracheostomy Respiratory exam: PRESENT: decreased breath sounds, prolonged expiratory phas, rales, rhonchi, stridor, unlabored, wheezes. ABSENT: retraction Cardiovascular exam: PRESENT: RRR, +S1, +S2 Pulses: PRESENT: normal radial pulses GI/Abdominal exam: PRESENT: soft. ABSENT: tenderness Extremities exam: PRESENT: pedal edema. ABSENT: calf tenderness, clubbing, joint swelling Musculoskeletal exam: ABSENT: deformity, dislocation Neurological exam: PRESENT: alert, awake Psychiatric exam: PRESENT: appropriate affect Skin exam: PRESENT: dry, warm Results Laboratory Results: 07/07/18 05:45 07/09/18 05:59 Impressions: Chest X-Ray 07/04/18 00:10 IMPRESSION: No acute cardiopulmonary process copyright 2011 [employer]- All Rights Reserved Assessment & Plan - Diagnosis (1) Obesity, Class II, BMI 35-39.9 Is this a current diagnosis for this admission?: Yes Plan: Unchanged dietitian and consider bariatric surgery (2) Acute and chronic respiratory failure with hypercapnia Is this a current diagnosis for this admission?: Yes Plan: This patient would benefit from noninvasive mechanical ventilation via the trilogy AVAPS/AE and faster responding AVAPS rates due to his frequent exacerbations of COPD hypercapnia bi-pap would not be as beneficial. The trilogy is able to provide a target tidal volume and also adjusting the EPAP pressures to maintain a patent airway as well as an oral backup rate this machine will help improve PaCO2 levels. The severity of the patient's condition will lead to future hospitalizations and readmissions as well as life- threatening situations without the use of this device day and night. Trilogy home vent needed for hypercapnic respiratory failure. [facility] Medical or [facility] to follow for trilogy set up. (3) COPD exacerbation Is this a current diagnosis for this admission?: Yes Plan: Systemic steroids inhaled corticosteroids long-acting beta agonist long-acting muscarinic agents and short acting beta agonist as needed (4) Hypertension Qualifiers: Hypertension type: essential hypertension Qualified Code(s): I10 - Essential (primary) hypertension Is this a current diagnosis for this admission?: Yes Plan: sTable at this time (5) Sleep apnea syndrome Qualifiers: Sleep apnea type: unspecified type Qualified Code(s): G47.30 - Sleep apnea, unspecified Is this a current diagnosis for this admission?: Yes Plan: Should be covered by his trilogy chronic respiratory failure
--- NOTE | 2018-07-20 12:51 | PDOC PROGRESS REPORT ---
Subjective Progress Note for:: 07/09/18 Subjective:: Feeling better Reason For Visit: CHRONIC OBSTRUCTIVE PULMONARY DISEASE WITH ACUTE Physical Exam Vital Signs: Temp Pulse Resp BP Pulse Ox 97.9 F 105 H 18 121/60 91 L 07/09/18 12:59 07/09/18 14:00 07/09/18 12:59 07/09/18 12:59 07/09/18 12:59 General appearance: PRESENT: no acute distress, cooperative, disheveled, morbidly obese Head exam: PRESENT: atraumatic, normocephalic Eye exam: PRESENT: conjunctiva pale, EOMI. ABSENT: nystagmus, scleral icterus Mouth exam: PRESENT: dry mucosa, neck supple, tongue midline Neck exam: ABSENT: carotid bruit, JVD, lymphadenopathy, thyromegaly, tracheal deviation, tracheostomy Respiratory exam: PRESENT: decreased breath sounds, prolonged expiratory phas, rhonchi, unlabored. ABSENT: retraction, symmetrical Cardiovascular exam: PRESENT: RRR, +S1, +S2 Pulses: PRESENT: normal radial pulses GI/Abdominal exam: PRESENT: soft. ABSENT: other Extremities exam: PRESENT: pedal edema. ABSENT: calf tenderness, clubbing Musculoskeletal exam: ABSENT: deformity, dislocation Neurological exam: PRESENT: alert, awake Psychiatric exam: PRESENT: appropriate affect Skin exam: PRESENT: dry, warm Results Laboratory Results: 07/07/18 05:45 07/09/18 05:59 Impressions: Chest X-Ray 07/04/18 00:10 IMPRESSION: No acute cardiopulmonary process copyright 2011 [employer]- All Rights Reserved Assessment & Plan - Diagnosis (1) Obesity, Class II, BMI 35-39.9 Is this a current diagnosis for this admission?: Yes Plan: Unchanged dietitian and consider bariatric surgery (2) Acute and chronic respiratory failure with hypercapnia Is this a current diagnosis for this admission?: Yes Plan: This patient would benefit from noninvasive mechanical ventilation via the trilogy AVAPS/AE and faster responding AVAPS rates due to his frequent ex acerbations of COPD hypercapnia bi-pap would not be as beneficial. The trilogy is able to provide a target tidal volume and also adjusting the EPAP pressures to maintain a patent airway as well as an oral backup rate this machine will help improve PaCO2 levels. The severity of the patient's condition will lead to future hospitalizations and readmissions as well as life-threatening situations without the use of this device day and night. Trilogy home vent needed for hypercapnic respiratory failure. [facility] or [facility] to follow for trilogy set up. (3) COPD exacerbation Is this a current diagnosis for this admission?: Yes Plan: Systemic steroids inhaled corticosteroids long-acting beta agonist long-acting muscarinic agents and short acting beta agonist as needed (4) Hypertension Qualifiers: Hypertension type: essential hypertension Qualified Code(s): I10 - Essential (primary) hypertension Is this a current diagnosis for this admission?: Yes Plan: sTable at this time (5) Sleep apnea syndrome Qualifiers: Sleep apnea type: unspecified type Qualified Code(s): G47.30 - Sleep apnea, unspecified Is this a current diagnosis for this admission?: Yes Plan: Should be covered by his trilogy chronic respiratory failure
== END 2018-07-09 15:50 | disposition home health service (06) | DRG 189 ==
LOC: ER 00:04 → EH 02:22 → 3W 04:45 → 3S 19:38
PROVIDERS: ADMIT Family Medicine; ATTEND Family Medicine
DX: J96.22 Acute and chronic respiratory failure with hypercapnia (principal); J44.1 Chronic obstructive pulmonary disease with (acute) exacerbation; I10 Essential (primary) hypertension; E11.8 Type 2 diabetes mellitus with unspecified complications; E78.00 Pure hypercholesterolemia, unspecified; F41.1 Generalized anxiety disorder; E66.9 Obesity, unspecified; G47.30 Sleep apnea, unspecified; F17.210 Nicotine dependence, cigarettes, uncomplicated; Z79.82 Long term (current) use of aspirin; Z79.4 Long term (current) use of insulin; Z79.51 Long term (current) use of inhaled steroids; Z79.899 Other long term (current) drug therapy; Z99.81 Dependence on supplemental oxygen; Z91.19 Patient's noncompliance with other medical treatment and regimen
CPT/HCPCS: 36415; 71045; 80048; 80053; 82803; 82962; 85025; 94640; 94660; 99285; J1815; J2920; J2930; J3490; J7512

== ENCOUNTER 2018-08-30 21:21 | Inpatient (IN) | payer MEDICARE, MEDICAID ==
[2018-08-30] MEDS ORDERED: PROPOFOL 1,000 MG/100 ML INFUS..BTL IV ONE (21:30)
[2018-08-30] MEDS ORDERED: IPRATROPIUM/ALBUTEROL 0.5-2.5 MG/3 ML AMPUL NEB ONE (21:31)
[2018-08-30] MEDS ORDERED: PROPOFOL INJ 200 MG/20 ML VIAL IV ONE (21:37)
[2018-08-30 21:46] LABS: ABSOLUTE BASOPHILS # (AUTO) 0.1 10^3/uL (0.0-0.2); ABSOLUTE EOSINOPHILS # (AUTO) 0.2 10^3/uL (0.0-0.6); ABSOLUTE MONOCYTES (AUTO) 0.5 10^3/uL (0.1-1.4); ABSOLUTE NEUT (AUTO) 6.8 10^3/uL (1.7-8.2); BASOPHILS % (AUTO) 0.8 % (0-2); EOSINOPHILS % (AUTO) 1.8 % (0-6); HEMATOCRIT 40.4 % (37.9-51.0); HEMOGLOBIN 13.5 g/dL (13.5-17.0); LYMPHOCYTES % (AUTO) 34.2 % (13-45); MEAN CORPUSCULAR HEMOGLOBIN 31.3 pg (27.0-33.4); MEAN CORPUSCULAR HGB CONC 33.4 g/dL (32.0-36.0); MEAN CORPUSCULAR VOLUME 94 fl (80-97); MONOCYTES % (AUTO) 4.1 % (3-13); PLATELET COUNT 222 10^3/uL (150-450); RED CELL DISTRIBUTION WIDTH 14.2 % (11.5-14.0); SEGMENTED NEUTROPHILS % (AUTO) 59.1 % (42-78); TOTAL CELLS COUNTED % (AUTO) 100 %; WHITE BLOOD COUNT 11.6 10^3/uL (4.0-10.5)
[2018-08-30] MEDS ORDERED: ONDANSETRON HCL INJ/PF 4 MG/2 ML SDV ONE (21:49)
[2018-08-30] MEDS ORDERED: ONDANSETRON HCL INJ/PF 4 MG/2 ML SDV IV ONE (21:49)
[2018-08-30 22:04] LABS: ALANINE AMINOTRANSFERASE 23 U/L (21-72); ALBUMIN 4.2 g/dL (3.5-5.0); ALKALINE PHOSPHATASE 91 U/L (38-126); ANION GAP 8 (5-19); ASPARTATE AMINO TRANSFERASE 18 U/L (17-59); BILIRUBIN,DIRECT 0.2 mg/dL (0.0-0.4); BILIRUBIN,TOTAL 0.4 mg/dL (0.2-1.3); BLOOD UREA NITROGEN 22 mg/dL (7-20); CALCIUM 9.1 mg/dL (8.4-10.2); CARBON DIOXIDE 35 mmol/L (22-30); CHLORIDE 98 mmol/L (98-107); GLUCOSE 273 mg/dL (75-110); POTASSIUM 4.4 mmol/L (3.6-5.0); SODIUM 140.9 mmol/L (137-145); TOTAL PROTEIN 6.7 g/dL (6.3-8.2)
[2018-08-30] MEDS: PROPOFOL 1,000 MG/100 ML INFUS..BTL IV PRN (22:05)
--- NOTE | 2018-08-30 22:06 | RADIOLOGY REPORT (SQ) ---
EXAM DESCRIPTION: XR CHEST 1 VIEW COMPLETED DATE/TME: 08/30/2018 21:31 CLINICAL HISTORY: 52 years, Male, Respiratory failure, post intubation COMPARISON: 07/04/2018 chest NUMBER OF VIEWS: 2 TECHNIQUE: AP chest LIMITATIONS: None. FINDINGS: Heart size is stable. Interval intubation and placement of an enteric tube. Tip of the enteric tube likely in the body of the stomach. Tip of the endotracheal tube approximately 4 cm above the orly. No pneumothorax. Small bibasilar effusions, greater on the left. IMPRESSION: Endotracheal and enteric tubes are in place. Small bibasilar effusions, greater on the left copyright 2010 [employer]- All Rights Reserved
--- NOTE | 2018-08-30 22:08 | ER Document Report ---
ED General - General Stated Complaint: RESPIRATORY FAILURE Time Seen by Provider: 08/30/18 21:30 Primary Care Provider: ARTEMIO KAMINSKI MD [Primary Care Provider] - Follow up as needed TRAVEL OUTSIDE OF THE [place] IN LAST 30 DAYS: No - HPI Notes: Patient brought to the emergency department for evaluation of difficulty breathing. My history is extremely limited. The patient was found to be markedly hypoxic upon EMS arrival. During the course of their transport the patient did become in more significant respiratory distress. I am unable to obtain any further history at this time. He was given a breathing treatment and steroids prior to arrival. - Related Data Allergies/Adverse Reactions: amoxicillin [Amoxicillin] Adverse Reaction (Verified 08/30/18 22:27) Hives Iodinated Contrast- Oral and IV Dye [IV Dye, Iodine Containing] Adverse Reaction (Verified 08/30/18 22:27) Hives Penicillins Adverse Reaction (Verified 08/30/18 22:27) Hives Apricots Adverse Reaction (Mild, Uncoded 08/30/18 22:27) Hives Past Medical History - General Information source: Emergency Med Personnel - Social History Smoking Status: Current Every Day Smoker Family History: COPD, Hypertension - Past Medical History Cardiac Medical History: Reports: Hx Hypercholesterolemia, Hx Hypertension Denies: Hx Coronary Artery Disease, Hx Heart Attack Pulmonary Medical History: Reports: Hx Asthma, Hx Bronchitis, Hx COPD, Hx Pneumonia Denies: Hx Tuberculosis Neurological Medical History: Denies: Hx Cerebrovascular Accident, Hx Seizures Endocrine Medical History: Reports: Hx Diabetes Mellitus Type 2 Renal/ Medical History: Denies: Hx Peritoneal Dialysis GI Medical History: Denies: Hx Cirrhosis, Hx Crohn's Disease, Hx Ulcerative Colitis Musculoskeletal Medical History: Denies Hx Arthritis Psychiatric Medical History: Reports: Hx Depression Traumatic Medical History: Denies: Hx Traumatic Brain Injury Past Surgical History: Reports: Hx Abdominal Surgery - herniax3, Hx Cardiac Catheterization, Hx Cholecystectomy, Hx Orthopedic Surgery - R foot, Hx Tonsillectomy - Immunizations Hx Diphtheria, Pertussis, Tetanus Vaccination: Yes Hx Pneumococcal Vaccination: 04/20/13 Review of Systems - Review of Systems -: Yes ROS unobtainable due to patient's medical condition Physical Exam - Vital signs Vitals: Pulse 122 H 08/30/18 21:21 Notes: Patient has significant respiratory distress with decreasing respiratory rate. Markedly hypoxic, tachycardic. Assisted breathing with BVM on arrival. Vital signs reviewed on the monitor. He was hypertensive, tachycardic. Blood pressure 165/100. Heart rate 125 - General General appearance: Unresponsive In distress: Severe - HEENT Head: Normocephalic Pupils: PERRL - Pupils sluggish but equal and reactive - Respiratory Respiratory status: Respiratory distress, Agonal respirations Breath sounds: Decreased air movement, Wheezing - Cardiovascular Rhythm: Tachycardia - Abdominal Notes: Obese - Extremities General upper extremity: Normal inspection General lower extremity: Normal inspection - Neurological Joseph Coma Scale Eye Opening: To Pain Joseph Coma Scale Verbal: None Joseph Coma Scale Motor: Localizes to Pain Joseph Coma Scale Total: 8 - Skin Skin Temperature: Warm Skin Moisture: Moist Course - Re-evaluation Re-evalutation: 08/30/18 22:07 Upon his arrival for intubation. Intubation was performed successfully. Records were visualized with glide scope and successful intubation was performed with one attempt. He was placed on a laboratory monitor. EKG obtained. Laboratory investigations ordered. He was sedated with propofol and Pierce catheter was placed. ABG is ordered. Chest x-ray ordered as well. 08/30/18 22:09 08/30/18 22:22 Laboratory investigations ordered and reviewed. ABG is still pending at this time. EKG reveals tachycardia but no acute ST or T wave changes. Chest x-ray s hows small bilateral pleural effusions. Patient sedation was maintained on the ventilator. He remained stable at this time. - Vital Signs Vital signs: Temp Pulse Resp BP Pulse Ox 122 H 18 97/69 L 100 08/30/18 21:21 08/30/18 22:41 08/30/18 22:41 08/30/18 22:41 - Laboratory Result Diagrams: 08/30/18 21:26 08/30/18 21:26 Laboratory results interpreted by me: 08/30/18 08/30/18 08/30/18 21:26 21:26 21:26 WBC 11.6 H RBC 4.30 L RDW 14.2 H Carbonic Acid ABG pH ABG pCO2 ABG pO2 ABG HCO3 ABG Total CO2 ABG O2 Saturation Carbon Dioxide 35 H BUN 22 H Glucose 273 H Urine Protein 100 H Urine Glucose (UA) 50 H 08/30/18 22:07 WBC RBC RDW Carbonic Acid 3.02 H ABG pH 7.15 L* ABG pCO2 100.4 H* ABG pO2 498.2 H ABG HCO3 33.8 H ABG Total CO2 36.9 H ABG O2 Saturation 99.8 H Carbon Dioxide BUN Glucose Urine Protein Urine Glucose (UA) - Diagnostic Test Radiology reviewed: Image reviewed, Reports reviewed - Bibasilar effusions. ET tube appropriately placed. - EKG Interpretation by Me Additional EKG results interpreted by me: 08/30/18 22:08 Sinus tachycardia with a rate of 118 bpm right axis deviation. No acute ST-T wave changes concerning for ischemia or infarction. - Consults [facility] Time consulted: 22:51 Consulted provider: will see as inpatient Procedures - Intubation Orotracheal Airway evaluation: Normal anatomy Mallampati Classification: Class 3 Medications: Etomidate, Succinylcholine Intubation method: Orotracheal Blade type: Sohail Blade size: 3 Equipment used: Glidescope ETT size: 7.5 ETT secured at: Lips - 23 cm Breath Sounds after Intubation: Equal End tidal CO2 confirmed: Yes Critical Care Note - Critical Care Note Total time excluding time spent on procedures (mins): 35 Discharge - Discharge Clinical Impression: COPD with acute exacerbation, Respiratory failure Condition: Fair Disposition: ADMITTED INPATIENT Admitting Provider: Marlyn Unit Admitted: ICU Referrals: ARTEMIO KAMINSKI MD [Primary Care Provider] - Follow up as needed
[2018-08-30] MEDS ORDERED: MIDAZOLAM 2 MG/2 ML INJ IV ONE (22:10)
[2018-08-30] MEDS ORDERED: MIDAZOLAM 2 MG/2 ML INJ ONE (22:11)
[2018-08-30] MEDS ORDERED: ETOMIDATE INJ/PF 20 MG/10 ML SDV IV ONE (22:13)
[2018-08-30] MEDS ORDERED: SUCCINYLCHOLINE CHLORIDE INJ 200 MG/10 ML VIAL IV ONE (22:14)
[2018-08-30 22:25] LABS: ARTERIAL BLOOD BASE EXCESS 1.4 mmol/L; ARTERIAL BLOOD H2CO3 3.02 mmol/L (1.05-1.35); ARTERIAL BLOOD HCO3 33.8 mmol/L (20-24); ARTERIAL BLOOD O2 SATURATION 99.8 % (94-98); ARTERIAL BLOOD PO2 498.2 mmHg (80-100); ARTERIAL BLOOD TOTAL CO2 36.9 mmol/L (23-27)
[2018-08-30 22:27] LABS: ARTERIAL BLOOD FIO2 100%
[2018-08-30 22:28] LABS: ARTERIAL BLOOD PH 7.15 (7.35-7.45)
[2018-08-30 22:29] LABS: ARTERIAL BLOOD PCO2 100.4 mmHg (35-45)
[2018-08-30 22:31] LABS: APPEARANCE,URINE CLEAR; BILIRUBIN,URINE NEGATIVE (NEGATIVE); COLOR,URINE YELLOW; GLUCOSE, URINE 50 mg/dL (NEGATIVE); KETONES,URINE NEGATIVE (NEGATIVE); LEUKOCYTE ESTERASE,URINE NEGATIVE (NEGATIVE); NITRITE,URINE NEGATIVE (NEGATIVE); PROTEIN,URINE 100 mg/dL (NEGATIVE); UROBILINOGEN,URINE NEGATIVE mg/dL (<2.0)
[2018-08-30 23:35] LABS: INTERNATIONAL RATION (INR) 0.89; PROTHROMBIN TIME 12.5 SEC (11.4-15.4)
[2018-08-30 23:36] LABS: PARTIAL THROMBOPLASTIN TIME 25.1 SEC (23.5-35.8)
--- NOTE | 2018-08-30 23:57 | EKG REPORT ---
SEVERITY:- OTHERWISE NORMAL ECG - SINUS TACHYCARDIA BORDERLINE RIGHT AXIS DEVIATION : Confirmed by: Keaton Manning 30-Aug-2018 23:55:59
[2018-08-30 23:58] LABS: LIPASE 23.1 U/L (23-300); PHOSPHORUS 4.7 mg/dL (2.5-4.5)
[2018-08-30] MEDS: NORMAL SALINE 1000 ML 1,000 ML IV PRN (23:59)
[2018-08-31 00:08] LABS: URINE AMPHETAMINES SCREEN NEGATIVE; URINE BARBITURATES SCREEN NEGATIVE; URINE BENZODIAZEPINES SCREEN NEGATIVE; URINE COCAINE SCREEN NEGATIVE; URINE MARIJUANA (THC) SCREEN NEGATIVE; URINE METHADONE SCREEN NEGATIVE; URINE PHENCYCLIDINE SCREEN NEGATIVE
[2018-08-31 00:28] LABS: CREATINE KINASE MB 3.65 ng/mL (<4.55)
[2018-08-31 00:32] LABS: FREE T4 (FREE THYROXINE) 0.99 ng/dL (0.78-2.19); TROPONIN I < 0.012 ng/mL
[2018-08-31 00:47] LABS: THYROID STIMULATING HORMONE 3.47 uIU/mL (0.47-4.68)
[2018-08-31 02:20] LABS: ARTERIAL BLOOD BASE EXCESS 3.3 mmol/L; ARTERIAL BLOOD HCO3 30.3 mmol/L (20-24); ARTERIAL BLOOD O2 SATURATION 99.5 % (94-98); ARTERIAL BLOOD PCO2 56.5 mmHg (35-45); ARTERIAL BLOOD PH 7.35 (7.35-7.45); ARTERIAL BLOOD PO2 237.5 mmHg (80-100)
[2018-08-31 02:21] LABS: ARTERIAL BLOOD FIO2 80%
[2018-08-31 04:06] LABS: ABSOLUTE LYMPHOCYTES (AUTO) 0.5 10^3/uL (0.5-4.7); ABSOLUTE MONOCYTES (AUTO) 0.2 10^3/uL (0.1-1.4); ABSOLUTE NEUT (AUTO) 7.3 10^3/uL (1.7-8.2); BASOPHILS % (AUTO) 0.1 % (0-2); EOSINOPHILS % (AUTO) 0.1 % (0-6); HEMATOCRIT 36.3 % (37.9-51.0); HEMOGLOBIN 12.2 g/dL (13.5-17.0); LYMPHOCYTES % (AUTO) 6.5 % (13-45); MEAN CORPUSCULAR HEMOGLOBIN 31.1 pg (27.0-33.4); MEAN CORPUSCULAR HGB CONC 33.6 g/dL (32.0-36.0); MEAN CORPUSCULAR VOLUME 92 fl (80-97); MONOCYTES % (AUTO) 1.9 % (3-13); PLATELET COUNT 144 10^3/uL (150-450); RED BLOOD COUNT 3.93 10^6/uL (4.35-5.55); RED CELL DISTRIBUTION WIDTH 14.1 % (11.5-14.0); SEGMENTED NEUTROPHILS % (AUTO) 91.4 % (42-78); TOTAL CELLS COUNTED % (AUTO) 100 %
[2018-08-31 04:31] LABS: ALANINE AMINOTRANSFERASE 16 U/L (21-72); ALBUMIN 3.7 g/dL (3.5-5.0); ALKALINE PHOSPHATASE 75 U/L (38-126); ANION GAP 9 (5-19); ASPARTATE AMINO TRANSFERASE 16 U/L (17-59); BILIRUBIN,DIRECT 0.3 mg/dL (0.0-0.4); BILIRUBIN,TOTAL 0.5 mg/dL (0.2-1.3); BLOOD UREA NITROGEN 29 mg/dL (7-20); CALCIUM 8.8 mg/dL (8.4-10.2); CARBON DIOXIDE 31 mmol/L (22-30); CHLORIDE 100 mmol/L (98-107); CHOLESTEROL 145.64 mg/dL (0-200); CREATINE KINASE 82 U/L (55-170); GLUCOSE 337 mg/dL (75-110); POTASSIUM 4.9 mmol/L (3.6-5.0); SODIUM 139.9 mmol/L (137-145); TOTAL PROTEIN 6.2 g/dL (6.3-8.2); TRIGLYCERIDES 153 mg/dL (<150)
[2018-08-31] MEDS: PROPOFOL 1,000 MG/100 ML INFUS..BTL IV PRN ×6 (04:39→21:53)
[2018-08-31 04:42] LABS: CREATINE KINASE MB 2.64 ng/mL (<4.55); DIRECT LDL 72 mg/dL (<100); TROPONIN I 0.019 ng/mL
[2018-08-31 04:43] LABS: VLDL CHOLESTEROL 30.6 mg/dL (10-31)
--- NOTE | 2018-08-31 06:43 | RADIOLOGY REPORT (SQ) ---
Chest single view on 08/31/2018 at 6:06 AM CLINICAL INDICATION: Pneumonia COMPARISON: 08/30/2018 FINDINGS: ET tube tip is in the midthoracic trachea. NG tube extends into the stomach and below the level of this film. A few overlying wires are noted. There are continued trace left greater than right pleural effusions. Lungs are otherwise clear. Cardiac, hilar and mediastinal contours are within normal limits. Pulmonary vascularity is within normal limits. IMPRESSION: No significant change in the appearance of the chest.
[2018-08-31] MEDS: IPRATROPIUM/ALBUTEROL 0.5-2.5 MG/3 ML AMPUL NEB SCH ×3 (08:40→20:41)
[2018-08-31] MEDS ORDERED: GLUCAGON,HUMAN RECOMB 1 MG INJ IM PRN (08:46)
[2018-08-31] MEDS ORDERED: DEXTROSE 50%-WATER 25 GM/50 ML DISP.SYRIN IV PRN ×2 (08:46)
[2018-08-31] MEDS ORDERED: DEXTROSE 40% GEL 15 GM TUBE PO PRN ×2 (08:46)
--- NOTE | 2018-08-31 08:47 | PDOC H&P ---
History of Present Illness Admission Date/PCP: 08/30/18 23:25 ARTEMIO KAMINSKI MD Patient complains of: Respiratory distress History of Present Illness: ADÁN CHEUNG is a 52 year old male This is a 52-year-old male very noncompliance history of the chronic respiratory failure history of the oxygen dependent history of the COPD and continues to smoke history of the type 2 diabetes mellitus and hypertension's several hospital admissions due to noncompliance and continues to smoke according to the patient's family patient was complaining some difficulty in breathing and patient recently started smoking again and called the EMS During the EMS visit patient was more respiratory distressed patient was intubated and patient is currently brought in the emergency department and put in the ICU Patient is currently intubated As per getting history from the patient's family brother regarding the patient's was doing okay yesterday but started smoking and noncompliance with the medications Past Medical History Cardiac Medical History: Reports: Hyperlipidema, Hypertension Denies: Coronary Artery Disease, Myocardial Infarction Pulmonary Medical History: Reports: Asthma, Bronchitis, Chronic Obstructive Pulmonary Disease (COPD), Pneumonia Denies: Tuberculosis Neurological Medical History: Denies: Seizures Endocrine Medical History: Reports: Diabetes Mellitus Type 2 GI Medical History: Denies: Cirrhosis, Crohn's Disease, Ulcerative Colitis Musculoskeltal Medical History: Denies: Arthritis Psychiatric Medical History: Reports: Depression Traumatic Medical History: Denies: Traumatic Brain Injury Hematology: Denies: Anemia Past Surgical History Past Surgical History: Reports: Cardiac Catheterization, Cholecystectomy, Orthopedic Surgery - R foot, Tonsillectomy Social History Smoking Status: Unknown if Ever Smoked Frequency of Alcohol Use: None Hx Recreational Drug Use: No Drugs: None Hx Prescription Drug Abuse: No Family History Family History: Reviewed & Not Pertinent, COPD, Hypertension Parental Family History Reviewed: Yes Children Family History Reviewed: Yes Sibling(s) Family History Reviewed.: Yes Medication/Allergy Allergies/Adverse Reactions: amoxicillin [Amoxicillin] Adverse Reaction (Verified 08/30/18 22:27) Hives Iodinated Contrast- Oral and IV Dye [IV Dye, Iodine Containing] Adverse Reaction (Verified 08/30/18 22:27) Hives Penicillins Adverse Reaction (Verified 08/30/18 22:27) Hives Apricots Adverse Reaction (Mild, Uncoded 08/30/18 22:27) Hives Review of Systems ROS unobtainable: Due to endotracheal tube All systems: reviewed and no additional remarkable complaints except as stated Physical Exam Vital Signs: Temp Pulse Resp BP Pulse Ox 97.5 F 64 18 131/72 H 99 08/31/18 06:41 08/31/18 02:06 08/31/18 06:41 08/31/18 06:41 08/31/18 06:41 Intake & Output 08/30/18 08/31/18 09/01/18 06:59 06:59 06:59 Intake Total 100 100 Balance 100 100 Weight 104.4 kg Physical Exam: intubated under sedation's General appearance: PRESENT: no acute distress Eye exam: PRESENT: PERRLA Mouth exam: PRESENT: neck supple Respiratory exam: PRESENT: decreased breath sounds Cardiovascular exam: PRESENT: +S1, +S2 GI/Abdominal exam: PRESENT: normal bowel sounds, soft Extremities exam: ABSENT: pedal edema Neurological exam: PRESENT: altered Skin exam: PRESENT: dry Results Laboratory Results: 08/31/18 03:41 08/31/18 03:41 08/30/18 08/30/18 08/30/18 21:26 21:26 21:26 WBC 11.6 H RBC 4.30 L Hgb 13.5 Hct 40.4 MCV 94 MCH 31.3 MCHC 33.4 RDW 14.2 H Plt Count 222 Seg Neutrophils % 59.1 Lymphocytes % 34.2 Monocytes % 4.1 Eosinophils % 1.8 Basophils % 0.8 Absolute Neutrophils 6.8 Absolute Lymphocytes 4.0 Absolute Monocytes 0.5 Absolute Eosinophils 0.2 Absolute Basophils 0.1 Carbonic Acid HCO3/H2CO3 Ratio ABG pH ABG pCO2 ABG pO2 ABG HCO3 ABG O2 Saturation ABG Base Excess FiO2 Sodium 140.9 Potassium 4.4 Chloride 98 Carbon Dioxide 35 H Anion Gap 8 BUN 22 H Creatinine 0.83 Est GFR ( Amer) > 60 Est GFR (Non-Af Amer) > 60 Glucose 273 H Calcium 9.1 Phosphorus Magnesium Total Bilirubin 0.4 AST 18 ALT 23 Alkaline Phosphatase 91 Ammonia Total Protein 6.7 Albumin 4.2 Triglycerides Cholesterol LDL Cholesterol Direct VLDL Cholesterol HDL Cholesterol Amylase Lipase TSH Free T4 Urine Color YELLOW Urine Appearance CLEAR Urine pH 6.0 Ur Specific [place] 1.010 Urine Protein 100 H Urine Glucose (UA) 50 H Urine Ketones NEGATIVE Urine Blood NEGATIVE Urine Nitrite NEGATIVE Ur Leukocyte Esterase NEGATIVE Urine WBC (Auto) 1 Urine RBC (Auto) 0 08/30/18 08/30/18 08/30/18 21:26 21:26 22:07 WBC RBC Hgb Hct MCV MCH MCHC RDW Plt Count Seg Neutrophils % Lymphocytes % Monocytes % Eosinophils % Basophils % Absolute Neutrophils Absolute Lymphocytes Absolute Monocytes Absolute Eosinophils Absolute Basophils Carbonic Acid 3.02 H HCO3/H2CO3 Ratio 11:1 ABG pH 7.15 L* ABG pCO2 100.4 H* ABG pO2 498.2 H ABG HCO3 33.8 H ABG O2 Saturation 99.8 H ABG Base Excess 1.4 FiO2 100% Sodium Potassium Chloride Carbon Dioxide Anion Gap BUN Creatinine Est GFR ( Amer) Est GFR (Non-Af Amer) Glucose Calcium Phosphorus 4.7 H Magnesium 2.9 H Total Bilirubin AST ALT Alkaline Phosphatase Ammonia Total Protein Albumin Triglycerides Cholesterol LDL Cholesterol Direct VLDL Cholesterol HDL Cholesterol Amylase 64 Lipase 23.1 TSH 3.47 Free T4 0.99 Urine Color Urine Appearance Urine pH Ur Specific Irving Urine Protein Urine Glucose (UA) Urine Ketones Urine Blood Urine Nitrite Ur Leukocyte Esterase Urine WBC (Auto) Urine RBC (Auto) 08/31/18 08/31/18 08/31/18 02:00 03:41 03:41 WBC RBC Hgb Hct MCV MCH MCHC RDW Plt Count Seg Neutrophils % Lymphocytes % Monocytes % Eosinophils % Basophils % Absolute Neutrophils Absolute Lymphocytes Absolute Monocytes Absolute Eosinophils Absolute Basophils Carbonic Acid 1.70 H HCO3/H2CO3 Ratio 17:1 ABG pH 7.35 ABG pCO2 56.5 H ABG pO2 237.5 H ABG HCO3 30.3 H ABG O2 Saturation 99.5 H ABG Base Excess 3.3 FiO2 80% Sodium 139.9 Potassium 4.9 Chloride 100 Carbon Dioxide 31 H Anion Gap 9 BUN 29 H Creatinine 0.91 Est GFR ( Amer) > 60 Est GFR (Non-Af Amer) > 60 Glucose 337 H Calcium 8.8 Phosphorus Magnesium Total Bilirubin 0.5 AST 16 L ALT 16 L Alkaline Phosphatase 75 Ammonia 9.8 Total Protein 6.2 L Albumin 3.7 Triglycerides 153 H Cholesterol 145.64 LDL Cholesterol Direct 72 VLDL Cholesterol 30.6 HDL Cholesterol 49 Amylase Lipase TSH Free T4 Urine Color Urine Appearance Urine pH Ur Specific [place] Urine Protein Urine Glucose (UA) Urine Ketones Urine Blood Urine Nitrite Ur Leukocyte Esterase Urine WBC (Auto) Urine RBC (Auto) 08/31/18 03:41 WBC 8.0 RBC 3.93 L Hgb 12.2 L Hct 36.3 L MCV 92 MCH 31.1 MCHC 33.6 RDW 14.1 H Plt Count 144 L Seg Neutrophils % 91.4 H Lymphocytes % 6.5 L Monocytes % 1.9 L Eosinophils % 0.1 Basophils % 0.1 Absolute Neutrophils 7.3 Absolute Lymphocytes 0.5 Absolute Monocytes 0.2 Absolute Eosinophils 0.0 Absolute Basophils 0.0 Carbonic Acid HCO3/H2CO3 Ratio ABG pH ABG pCO2 ABG pO2 ABG HCO3 ABG O2 Saturation ABG Base Excess FiO2 Sodium Potassium Chloride Carbon Dioxide Anion Gap BUN Creatinine Est GFR ( Amer) Est GFR (Non-Af Amer) Glucose Calcium Phosphorus Magnesium Total Bilirubin AST ALT Alkaline Phosphatase Ammonia Total Protein Albumin Triglycerides Cholesterol LDL Cholesterol Direct VLDL Cholesterol HDL Cholesterol Amylase Lipase TSH Free T4 Urine Color Urine Appearance Urine pH Ur Specific [place] Urine Protein Urine Glucose (UA) Urine Ketones Urine Blood Urine Nitrite Ur Leukocyte Esterase Urine WBC (Auto) Urine RBC (Auto) 08/30/18 08/30/18 08/31/18 21:26 21:26 03:41 Creatine Kinase 60 82 CK-MB (CK-2) 3.65 Troponin I < 0.012 08/31/18 03:41 Creatine Kinase CK-MB (CK-2) 2.64 Troponin I 0.019 Impressions: Chest X-Ray 08/31/18 06:00 IMPRESSION: No significant change in the appearance of the chest. Assessment & Plan - Diagnosis (1) Acute and chronic respiratory failure with hypercapnia Is this a current diagnosis for this admission?: Yes Plan: Currently all improving follow with the pulmonary (2) COPD with acute exacerbation Is this a current diagnosis for this admission?: Yes Plan: And is on nebulizer treatments (3) Diabetes mellitus type 2 in obese Is this a current diagnosis for this admission?: Yes Plan: Sliding scale (4) Hypertension Qualifiers: Hypertension type: essential hypertension Is this a current diagnosis for this admission?: Yes (5) Noncompliance Is this a current diagnosis for this admission?: Yes (6) Tobacco abuse Is this a current diagnosis for this admission?: Yes - Time Time Spent: 50 to 70 Minutes Critical Time spent with patient: 25-34 minutes Medications reviewed and adjusted accordingly: Yes Anticipated discharge: Other Within: Other - Inpatient Certification Based on my medical assessment, after consideration of the patient's comorbidities, presenting symptoms, or acuity I expect that the services needed warrant INPATIENT care.: Yes I certify that my determination is in accordance with my understanding of Medicare's requirements for reasonable and necessary INPATIENT services [42 CFR 412.3e].: Yes Medical Necessity: Need Close Monitoring Due to Risk of Patient Decompensation, Need for IV Antibiotics Post Hospital Care: D/C Contact Clerk Documentation - Plan Summary Plan Summary: Very extensive discussed with the patient's family in the ICU room Currently admitted in the ICU Start the nebulizer treatments Start antibiotics Continues to monitor
[2018-08-31] MEDS ORDERED: LEVALBUTEROL HCL NEB 1.25 MG/3 ML AMPUL NEB PRN (09:58)
[2018-08-31] MEDS ORDERED: ETOMIDATE INJ/PF 20 MG/10 ML SDV IV ONE (10:08)
[2018-08-31] MEDS ORDERED: SUCCINYLCHOLINE CHLORIDE INJ 200 MG/10 ML VIAL ONE (10:08)
[2018-08-31] MEDS: FAMOTIDINE INJ/PF 20 MG/2 ML SDV IV SCH ×2 (10:25→21:53)
[2018-08-31] MEDS: ENOXAPARIN SODIUM INJ 40 MG/0.4 ML DISP.SYRIN SUBCUT SCH (10:25)
[2018-08-31] MEDS: LEVOFLOXACIN 500 MG/D5W RTU 500 MG/100 ML RTUPB IV SCH (10:25)
[2018-08-31 10:57] LABS: CREATINE KINASE MB 1.72 ng/mL (<4.55)
[2018-08-31 11:06] LABS: TROPONIN I < 0.012 ng/mL
[2018-08-31] MEDS: INSULIN LISPRO 100 UNIT/ML 3 ML VIAL SUBCUT SCH ×2 (14:15→18:38)
[2018-08-31] MEDS: GABAPENTIN 100 MG CAPSULE PO SCH ×2 (14:16→21:53)
[2018-08-31 14:37] LABS: CREATINE KINASE MB 2.06 ng/mL (<4.55)
[2018-08-31 14:43] LABS: TROPONIN I < 0.012 ng/mL
[2018-08-31] MEDS: TAMSULOSIN HCL 0.4 MG CAP.SR.24H PO SCH (18:24)
[2018-08-31 20:50] LABS: CREATINE KINASE MB 2.17 ng/mL (<4.55)
[2018-08-31 20:53] LABS: TROPONIN I < 0.012 ng/mL
[2018-08-31] MEDS: ATORVASTATIN CALCIUM 80 MG TABLET PO SCH (21:53)
--- NOTE | 2018-08-31 23:09 | PDOC CONSULTATION ---
Consultation-Blank Consultation: CARDIOLOGY CONSULTATION by Dr. Tejal Gentile on 08/31/2018. Patient seen at 12 noon on 08/31/2018. REASON FOR CONSULTATION: Patient with acute hypoxic respiratory failure. Assess cardiac status and congestive heart failure. HISTORY OF PRESENT ILLNESS: Patient is a 52-year-old male noncompliance is a history of chronic respiratory failure, COPD, diabetes mellitus type 2, and hypertension, with a history of noncompliance came to the emergency room, and per with the patient's family as per him medical records patient is complaining of difficulty in breathing and was found to be in acute respiratory distress and had to be intubated. At present the patient in ICU. Of note the patient has recently restarted smoking. He has a history of noncompliance with the tobacco usage and noncompliance with medications. PAST MEDICAL HISTORY: Is positive for hyperlipidemia, diabetes mellitus, and hyperlipidemia. In February 2018 the patient was admitted with acute respiratory failure, and there was elevation of troponin I. The patient was transferred to [facility]. He had a cardiac catheterization then. This showed that the patient had normal coronaries. His echocardiographic showed normal left ventricular systolic function with LV ejection fraction of 60-65%, and normal LV diastolic function. There is no significant valvular disease. He also has per records has a history of depression. PAST SURGICAL HISTORY cardiac catheterization, cholecystectomy, orthopedic surgery and tonsillectomy. Social history: The patient is a smoker. FAMILY HISTORY: Is positive for hypertension and COPD. ALLERGIES the patient is allergic to amoxicillin, iodinated contrast [oral and I V contrast dye: Penicillins, and apricots. DISPOSITION: The patient is a full code. As per records Mr. Chauncey Gray is is surrogate healthcare decision maker REVIEW SYSTEMS: Not available due to the patient being intubated and sedated. No family available. PHYSICAL EXAMINATION: The patient is mild to moderately obese. He is in no acute distress, and is not fighting the ventilator. Selected Entries 08/31/18 12:00 Temperature 99.0 F Temperature Core Source Pulse Rate 81 Respiratory 11 L Rate Blood Pressure 144/85 H [Upper Arm] Blood Pressure 104 Mean [Upper Arm ] Blood Pressure Supine Position [Upper Arm] O2 Sat by Pulse 97 Oximetry Oxygen Delivery Mechanical Method ( Ventilator includes room air) Fraction of 40 Inspired Oxygen (FIO2) HEAD: Is atraumatic normocephalic. EYES: Pupils are equal round regular reactive to light. ENT is negative. NECK: Is supple. There is no JVD. Carotids are equal there is no bruits. There is no goiter. Trachea central. LUNGS: There is diminished air entry prolonged expiration. There is hyperresonance on percussion. There is no rales of CHF. There is no rhonchi or wheezing. HEART: S1-S2 is heard there is no S3 gallop there no S4 gallop there is systolic murmur in the left sternal border and the apex.There is no radiation of the murmurs. There is no rub. ABDOMEN: Is soft. Bowel sounds are well heard. There is no hepatosplenic megaly. EXTREMITIES: Femorals are slightly diminished. There is no femoral bruits. There is no pedal edema. Leg pulses well felt. There is no cyanosis or clubbing. 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 08/30/18 08/30/18 08/31/18 21:26 21:26 02:00 WBC 11.6 H RBC 4.30 L Hgb 13.5 Hct 40.4 MCV 94 MCH 31.3 MCHC 33.4 RDW 14.2 H Plt Count 222 Seg Neutrophils % 59.1 Lymphocytes % 34.2 Monocytes % 4.1 Eosinophils % 1.8 Basophils % 0.8 Absolute Neutrophils 6.8 Absolute Lymphocytes 4.0 Absolute Monocytes 0.5 Absolute Eosinophils 0.2 Absolute Basophils 0.1 PT 12.5 INR 0.89 APTT 25.1 Carbonic Acid 1.70 H HCO3/H2CO3 Ratio 17:1 ABG pH 7.35 ABG pCO2 56.5 H ABG pO2 237.5 H ABG HCO3 30.3 H ABG Total CO2 32.0 H ABG O2 Saturation 99.5 H ABG Base Excess 3.3 FiO2 80% Sodium Potassium Chloride Carbon Dioxide Anion Gap BUN Creatinine Est GFR (Non-Af Amer) Glucose POC Glucose Hemoglobin A1c % Calcium Total Bilirubin Direct Bilirubin Neonat Total Bilirubin Neonat Direct Bilirubin Neonat Indirect Bili AST ALT Alkaline Phosphatase Creatine Kinase CK-MB (CK-2) Troponin I Total Protein Albumin Triglycerides Cholesterol LDL Cholesterol Direct VLDL Cholesterol HDL Cholesterol 08/31/18 08/31/18 08/31/18 03:41 03:41 03:41 WBC 8.0 RBC 3.93 L Hgb 12.2 L Hct 36.3 L MCV 92 MCH 31.1 MCHC 33.6 RDW 14.1 H Plt Count 144 L Seg Neutrophils % 91.4 H Lymphocytes % 6.5 L Monocytes % 1.9 L Eosinophils % 0.1 Basophils % 0.1 Absolute Neutrophils 7.3 Absolute Lymphocytes 0.5 Absolute Monocytes 0.2 Absolute Eosinophils 0.0 Absolute Basophils 0.0 PT INR APTT Carbonic Acid HCO3/H2CO3 Ratio ABG pH ABG pCO2 ABG pO2 ABG HCO3 ABG Total CO2 ABG O2 Saturation ABG Base Excess FiO2 Sodium 139.9 Potassium 4.9 Chloride 100 Carbon Dioxide 31 H Anion Gap 9 BUN 29 H Creatinine 0.91 Est GFR (Non-Af Amer) > 60 Glucose 337 H POC Glucose Hemoglobin A1c % Calcium 8.8 Total Bilirubin 0.5 Direct Bilirubin 0.3 Neonat Total Bilirubin Not Reportable Neonat Direct Bilirubin Not Reportable Neonat Indirect Bili Not Reportable AST 16 L ALT 16 L Alkaline Phosphatase 75 Creatine Kinase 82 CK-MB (CK-2) 2.64 Troponin I 0.019 Total Protein 6.2 L Albumin 3.7 Triglycerides 153 H Cholesterol 145.64 LDL Cholesterol Direct 72 VLDL Cholesterol 30.6 HDL Cholesterol 49 08/31/18 08/31/18 08/31/18 03:41 10:20 10:20 WBC RBC Hgb Hct MCV MCH MCHC RDW Plt Count Seg Neutrophils % Lymphocytes % Monocytes % Eosinophils % Basophils % Absolute Neutrophils Absolute Lymphocytes Absolute Monocytes Absolute Eosinophils Absolute Basophils PT INR APTT Carbonic Acid HCO3/H2CO3 Ratio ABG pH ABG pCO2 ABG pO2 ABG HCO3 ABG Total CO2 ABG O2 Saturation ABG Base Excess FiO2 Sodium Potassium Chloride Carbon Dioxide Anion Gap BUN Creatinine Est GFR (Non-Af Amer) Glucose POC Glucose Hemoglobin A1c % 10.0 H Calcium Total Bilirubin Direct Bilirubin Neonat Total Bilirubin Neonat Direct Bilirubin Neonat Indirect Bili AST ALT Alkaline Phosphatase Creatine Kinase 83 CK-MB (CK-2) 1.72 Troponin I < 0.012 Total Protein Albumin Triglycerides Cholesterol LDL Cholesterol Direct VLDL Cholesterol HDL Cholesterol 08/31/18 08/31/18 08/31/18 13:54 13:54 14:10 WBC RBC Hgb Hct MCV MCH MCHC RDW Plt Count Seg Neutrophils % Lymphocytes % Monocytes % Eosinophils % Basophils % Absolute Neutrophils Absolute Lymphocytes Absolute Monocytes Absolute Eosinophils Absolute Basophils PT INR APTT Carbonic Acid HCO3/H2CO3 Ratio ABG pH ABG pCO2 ABG pO2 ABG HCO3 ABG Total CO2 ABG O2 Saturation ABG Base Excess FiO2 Sodium Potassium Chloride Carbon Dioxide Anion Gap BUN Creatinine Est GFR (Non-Af Amer) Glucose POC Glucose 346 H Hemoglobin A1c % Calcium Total Bilirubin Direct Bilirubin Neonat Total Bilirubin Neonat Direct Bilirubin Neonat Indirect Bili AST ALT Alkaline Phosphatase Creatine Kinase 72 CK-MB (CK-2) Troponin I < 0.012 Total Protein Albumin Triglycerides Cholesterol LDL Cholesterol Direct VLDL Cholesterol HDL Cholesterol Home Meds Table Albuterol Sulfate [Proair HFA Inhalation Aerosol 8.5 gm MDI] 2 puff IH Q4HP PRN 08/31/18 Aspirin [Adult Low Dose Aspirin EC] 81 mg PO DAILY 08/31/18 Atorvastatin Calcium [Lipitor 80 mg Tablet] 80 mg PO QHS 08/31/18 Cetirizine HCl [Zyrtec 10 mg Tablet] 10 mg PO DAILY 08/31/18 Diltiazem HCl [Cardizem Cd 120 mg Capsule] 120 mg PO DAILY 08/31/18 Fluticasone Propionate [Flonase Nasal [place] 50 Mcg/[place] 16 gm] 1 spray NASL BIDP PRN 08/31/18 Fluticasone/Vilanterol [Breo Ellipta 100-25 Mcg INH] 1 puff IH DAILY 08/31/18 Gabapentin [Neurontin 100 mg Capsule] 100 mg PO Q8 08/31/18 Insulin Aspart [Novolog Flexpen] 4 units SQ MEALS 08/31/18 Insulin Glargine,Hum.rec.anlog [Lantus Insulin 100 Unit/1 ml 10 ml] 36 units SQ Q12 08/31/18 Ipratropium/Albuterol Sulfate [Combivent Respimat 4 gm Mdi] 1 puff IH QIDP PRN 08/31/18 Tamsulosin HCl [Flomax 0.4 mg Cap.sr] 0.4 mg PO QPM 08/31/18 08/30/18 21:30 Propofol [Diprivan RTU 1000 mg/100 ml Inf.bottle] 1,000 mg in 100 ml IV .STK-MED 08/30/18 21:31 Ipratropium/Albuterol Sulfate [Duoneb 3 ml Ampul] 3 ml NEB NOW ONE 08/30/18 21:37 Propofol [Diprivan Inj 200 mg/20 ml Vial] See Protocol IV NOW ONE 08/30/18 21:49 Ondansetron HCl/Pf [Zofran Inj/Pf 4 mg/2 ml Sdv] 4 mg .ROUTE .STK-MED ONE Ondansetron HCl/Pf [Zofran Inj/Pf 4 mg/2 ml Sdv] 8 mg IV NOW ONE 08/30/18 21:56 Propofol [Diprivan RTU 1000 mg/100 ml Inf.bottle] 1,000 mg in 100 ml IV CONTINUOUS 08/30/18 22:10 Midazolam HCl [Versed 2 mg/2 ml Inj] 5 mg IV NOW ONE 08/30/18 22:11 Midazolam HCl [Versed 2 mg/2 ml Inj] 2 mg .ROUTE .STK-MED ONE 08/30/18 22:13 Etomidate [Amidate Inj/Pf 20 mg/10 ml Sdv] 30 mg IV NOW ONE 08/30/18 22:14 Succinylcholine Chloride [Anectine Inj 200 mg/10 ml Vial] 100 mg IV NOW ONE 08/30/18 23:18 Normal Saline 1000 ml [NaCl 0.9% 1000 ml IV Soln] 1,000 ml IV CONTINUOUS 08/31/18 08:00 Ipratropium/Albuterol Sulfate [Duoneb 3 ml Ampul] 3 ml NEB [id number] 08/31/18 08:46 Dextrose 50%-Water [Dextrose Inj 50% Syringe (25 gm/50 ml)] 12.5 gm IV PRN PRN Dextrose 50%-Water [Dextrose Inj 50% Syringe (25 gm/50 ml)] 25 gm IV PRN PRN Dextrose [Glutose 40% Gel 15 gm Tube] 15 gm PO PRN PRN Dextrose [Glutose 40% Gel 15 gm Tube] 30 gm PO PRN PRN Glucagon,Human Recombinant [Glucagen Inj 1 mg Vial] 1 mg IM PRN PRN 08/31/18 09:00 Levofloxacin 500 mg/D5w RTU [Levaquin RTU 500Mg/D5w 100 ml Premix] 500 mg in 100 ml IV QAM 08/31/18 09:58 Levalbuterol HCl [Xopenex Neb 1.25 mg/3 ml Ampul] 1.25 mg NEB RTQ6HP PRN 08/31/18 10:00 Enoxaparin Sodium [Lovenox Inj 40 mg/0.4 ml Disp.syrin] 40 mg SUBCUT DAILY Famotidine/Pf [Pepcid Inj/Pf 20 mg/2 ml Sdv] 20 mg IV Q12 08/31/18 12:00 Insulin Lispro [Humalog Insulin 100 Unit/1 ml 3 ml Vial] 0 - 12 unit SUBCUT Q6 08/31/18 14:00 Gabapentin [Neurontin 100 mg Capsule] 100 mg PO Q8 08/31/18 22:00 Atorvastatin Calcium [Lipitor 80 mg Tablet] 80 mg PO QHS 09/01/18 10:00 Aspirin [Ecotrin 81 mg EC Tablet] 81 mg PO DAILY Cetirizine HCl [Zyrtec 10 mg Tablet] 10 mg PO DAILY Diltiazem HCl [Cardizem Cd 120 mg Capsule] 120 mg PO DAILY EKG: Shows sinus tachycardia. Borderline right axis deviation. Otherwise within normal limits. CHEST x-ray: Shows trace bilateral pleural effusion. No evidence of heart failure or pneumonia. MONITOR review shows no ventricular or atrial arrhythmias. IMPRESSION/recommendation: 1. Acute hypercapnic on chronic respiratory failure. Continue ventilator support 2. Acute exacerbation of COPD. Continue antibiotics and respiratory treatments. 3. Hypertension. Blood pressure is well controlled 4. Diabetes mellitus: Continue antidiabetic medication and monitoring blood sugars 5. No evidence of any acute cardiac decompensation. There is no evidence of heart failure. The patient has no evidence of [place] by EKG or by enzymes. He has had normal coronaries by recent cardiac catheterization in February 2018. Thank you for allowing me to participate in the care of this patient is medications have been reviewed. Discussed management plan with Dr. Hernandez. Will sign off the case. Medical decision making is of moderate complexity.
[2018-09-01] MEDS: PROPOFOL 1,000 MG/100 ML INFUS..BTL IV PRN ×5 (00:38→21:02)
[2018-09-01] MEDS: NORMAL SALINE 1000 ML 1,000 ML IV PRN ×2 (00:38→11:16)
[2018-09-01] MEDS: INSULIN LISPRO 100 UNIT/ML 3 ML VIAL SUBCUT SCH ×4 (00:42→18:00)
[2018-09-01 03:57] LABS: ABSOLUTE BASOPHILS # (AUTO) 0.1 10^3/uL (0.0-0.2); ABSOLUTE EOSINOPHILS # (AUTO) 0.1 10^3/uL (0.0-0.6); ABSOLUTE LYMPHOCYTES (AUTO) 1.8 10^3/uL (0.5-4.7); ABSOLUTE MONOCYTES (AUTO) 0.7 10^3/uL (0.1-1.4); ABSOLUTE NEUT (AUTO) 6.3 10^3/uL (1.7-8.2); EOSINOPHILS % (AUTO) 0.7 % (0-6); HEMOGLOBIN 12.3 g/dL (13.5-17.0); LYMPHOCYTES % (AUTO) 19.9 % (13-45); MEAN CORPUSCULAR HEMOGLOBIN 31.2 pg (27.0-33.4); MEAN CORPUSCULAR HGB CONC 34.1 g/dL (32.0-36.0); MEAN CORPUSCULAR VOLUME 91 fl (80-97); MONOCYTES % (AUTO) 7.8 % (3-13); PLATELET COUNT 125 10^3/uL (150-450); RED BLOOD COUNT 3.93 10^6/uL (4.35-5.55); SEGMENTED NEUTROPHILS % (AUTO) 70.6 % (42-78); TOTAL CELLS COUNTED % (AUTO) 100 %; WHITE BLOOD COUNT 8.9 10^3/uL (4.0-10.5)
[2018-09-01 04:20] LABS: ANION GAP 7 (5-19); BLOOD UREA NITROGEN 29 mg/dL (7-20); CALCIUM 8.3 mg/dL (8.4-10.2); CARBON DIOXIDE 31 mmol/L (22-30); CHLORIDE 103 mmol/L (98-107); GLUCOSE 168 mg/dL (75-110); POTASSIUM 3.7 mmol/L (3.6-5.0); SODIUM 140.5 mmol/L (137-145)
--- NOTE | 2018-09-01 06:23 | RADIOLOGY REPORT (SQ) ---
CLINICAL HISTORY: resp failure COMPARISON: August 31, 2018. 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 There is vague bibasilar airspace disease. There is a small left pleural effusion. There is no pneumothorax. There are no acute osseous findings. Endotracheal tube and nasogastric tube are unchanged. IMPRESSION: No change.
[2018-09-01] MEDS: GABAPENTIN 100 MG CAPSULE PO SCH ×3 (06:28→21:50)
[2018-09-01 07:35] LABS: ARTERIAL BLOOD BASE EXCESS 0.8 mmol/L; ARTERIAL BLOOD H2CO3 1.07 mmol/L (1.05-1.35); ARTERIAL BLOOD HCO3 24.5 mmol/L (20-24); ARTERIAL BLOOD O2 SATURATION 95.9 % (94-98); ARTERIAL BLOOD PCO2 35.7 mmHg (35-45); ARTERIAL BLOOD PH 7.45 (7.35-7.45); ARTERIAL BLOOD TOTAL CO2 25.6 mmol/L (23-27)
[2018-09-01 07:42] LABS: ARTERIAL BLOOD FIO2 45%
[2018-09-01] MEDS: IPRATROPIUM/ALBUTEROL 0.5-2.5 MG/3 ML AMPUL NEB SCH ×3 (08:37→20:12)
--- NOTE | 2018-09-01 08:47 | PDOC PROGRESS REPORT ---
Subjective Progress Note for:: 09/01/18 Subjective:: Patient is currently doing same Still intubated No other events happens Reason For Visit: ACUTE HYPERCAPNIC RESPIRATORY FAILURE Physical Exam Vital Signs: Temp Pulse Resp BP Pulse Ox 98.4 F 67 18 96/61 L 95 09/01/18 08:00 09/01/18 08:00 09/01/18 08:00 09/01/18 08:00 09/01/18 08:00 Intake & Output 08/31/18 09/01/18 09/02/18 06:59 06:59 06:59 Intake Total 100 1665 Output Total 1290 125 Balance 100 375 -125 Weight 104.4 kg 106.7 kg Physical Exam: Patient is currently intubated General appearance: PRESENT: no acute distress Eye exam: PRESENT: PERRLA Mouth exam: PRESENT: neck supple Respiratory exam: PRESENT: clear to auscultation allyson Cardiovascular exam: PRESENT: +S1, +S2 GI/Abdominal exam: PRESENT: normal bowel sounds, soft Skin exam: PRESENT: dry Results Laboratory Results: 09/01/18 03:49 09/01/18 03:49 09/01/18 09/01/18 09/01/18 03:49 03:49 07:25 WBC 8.9 RBC 3.93 L Hgb 12.3 L Hct 36.0 L MCV 91 MCH 31.2 MCHC 34.1 RDW 14.0 Plt Count 125 L Seg Neutrophils % 70.6 Lymphocytes % 19.9 Monocytes % 7.8 Eosinophils % 0.7 Basophils % 1.0 Absolute Neutrophils 6.3 Absolute Lymphocytes 1.8 Absolute Monocytes 0.7 Absolute Eosinophils 0.1 Absolute Basophils 0.1 Carbonic Acid 1.07 HCO3/H2CO3 Ratio 22:1 ABG pH 7.45 ABG pCO2 35.7 ABG pO2 76.0 L ABG HCO3 24.5 H ABG O2 Saturation 95.9 ABG Base Excess 0.8 FiO2 45% Sodium 140.5 Potassium 3.7 Chloride 103 Carbon Dioxide 31 H Anion Gap 7 BUN 29 H Creatinine 0.92 Est GFR ( Amer) > 60 Est GFR (Non-Af Amer) > 60 Glucose 168 H Calcium 8.3 L Magnesium 2.0 08/30/18 08/30/18 08/31/18 21:26 21:26 03:41 Creatine Kinase 60 82 CK-MB (CK-2) 3.65 Troponin I < 0.012 08/31/18 08/31/18 08/31/18 03:41 10:20 10:20 Creatine Kinase 83 CK-MB (CK-2) 2.64 1.72 Troponin I 0.019 < 0.012 08/31/18 08/31/18 08/31/18 13:54 13:54 19:50 Creatine Kinase 72 67 CK-MB (CK-2) 2.06 Troponin I < 0.012 08/31/18 19:50 Creatine Kinase CK-MB (CK-2) 2.17 Troponin I < 0.012 Impressions: Chest X-Ray 09/01/18 06:00 IMPRESSION: No change. Assessment & Plan - Diagnosis (1) Acute and chronic respiratory failure with hypercapnia Is this a current diagnosis for this admission?: Yes Plan: He also improving (2) COPD with acute exacerbation Is this a current diagnosis for this admission?: Yes Plan: And is on nebulizer treatments (3) Diabetes mellitus type 2 in obese Is this a current diagnosis for this admission?: Yes Plan: Sliding scale (4) Hypertension Qualifiers: Hypertension type: essential hypertension Is this a current diagnosis for this admission?: Yes (5) Noncompliance Is this a current diagnosis for this admission?: Yes (6) Tobacco abuse Is this a current diagnosis for this admission?: Yes - Time Time Spent with patient: 15-24 minutes Medications reviewed and adjusted accordingly: Yes Anticipated discharge: Home Within: Other - Plan Summary Plan Summary: continue current medications
[2018-09-01] MEDS: LEVOFLOXACIN 500 MG/D5W RTU 500 MG/100 ML RTUPB IV SCH (08:49)
[2018-09-01] MEDS: CETIRIZINE 10 MG TABLET PO SCH (11:04)
[2018-09-01] MEDS: DILTIAZEM HCL 120 MG CAP.SR.24H PO SCH (11:04)
[2018-09-01] MEDS: ASPIRIN 81 MG TABLET, ENT COATED PO SCH (11:05)
[2018-09-01] MEDS: FAMOTIDINE INJ/PF 20 MG/2 ML SDV IV SCH ×2 (11:05→21:50)
[2018-09-01] MEDS: ENOXAPARIN SODIUM INJ 40 MG/0.4 ML DISP.SYRIN SUBCUT SCH (11:05)
[2018-09-01] MEDS: TAMSULOSIN HCL 0.4 MG CAP.SR.24H PO SCH (17:27)
--- NOTE | 2018-09-01 17:52 | EKG REPORT ---
SEVERITY:- NORMAL ECG - SINUS RHYTHM : Confirmed by: Tejal Gentile MD 01-Sep-2018 17:51:43
--- NOTE | 2018-09-01 18:06 | RADIOLOGY REPORT (SQ) ---
EXAM DESCRIPTION: CHEST SINGLE VIEW COMPLETED DATE/TIME: 09/01/2018 5:45 pm REASON FOR STUDY: chest pain COMPARISON: Earlier the same day. NUMBER OF VIEWS: One view. TECHNIQUE: Single frontal radiographic image of the chest acquired. LIMITATIONS: None. FINDINGS: LUNGS AND PLEURA: Stable appearance. MEDIASTINUM AND HILAR STRUCTURES: Stable heart size and mediastinal structures. HEART AND VASCULAR STRUCTURES: Stable appearance. SUPPORT DEVICES: Appropriate location without change. BONES: No acute findings. OTHER: No other significant finding. IMPRESSION: STABLE APPEARANCE OF THE CHEST. SUPPORT DEVICES UNCHANGED. TECHNICAL DOCUMENTATION: JOB ID: [id number] [employer]- All Rights Reserved Reading location - IP/workstation name: [email or web address]
[2018-09-01 18:35] LABS: CREATINE KINASE MB 1.97 ng/mL (<4.55)
[2018-09-01 18:36] LABS: TROPONIN I < 0.012 ng/mL
[2018-09-01] MEDS: ATORVASTATIN CALCIUM 80 MG TABLET PO SCH (21:49)
[2018-09-02] MEDS: NORMAL SALINE 1000 ML 1,000 ML IV PRN ×2 (00:02→15:17)
[2018-09-02] MEDS: INSULIN LISPRO 100 UNIT/ML 3 ML VIAL SUBCUT SCH ×4 (00:03→17:25)
[2018-09-02] MEDS: PROPOFOL 1,000 MG/100 ML INFUS..BTL IV PRN ×5 (00:44→20:42)
[2018-09-02 04:13] LABS: ABSOLUTE EOSINOPHILS # (AUTO) 0.1 10^3/uL (0.0-0.6); ABSOLUTE LYMPHOCYTES (AUTO) 1.1 10^3/uL (0.5-4.7); ABSOLUTE MONOCYTES (AUTO) 0.4 10^3/uL (0.1-1.4); ABSOLUTE NEUT (AUTO) 4.7 10^3/uL (1.7-8.2); BASOPHILS % (AUTO) 0.7 % (0-2); HEMATOCRIT 33.7 % (37.9-51.0); HEMOGLOBIN 11.5 g/dL (13.5-17.0); LYMPHOCYTES % (AUTO) 16.7 % (13-45); MEAN CORPUSCULAR VOLUME 91 fl (80-97); MONOCYTES % (AUTO) 6.7 % (3-13); PLATELET COUNT 122 10^3/uL (150-450); RED BLOOD COUNT 3.69 10^6/uL (4.35-5.55); RED CELL DISTRIBUTION WIDTH 14.3 % (11.5-14.0); SEGMENTED NEUTROPHILS % (AUTO) 73.9 % (42-78); TOTAL CELLS COUNTED % (AUTO) 100 %; WHITE BLOOD COUNT 6.3 10^3/uL (4.0-10.5)
[2018-09-02 04:29] LABS: ANION GAP 8 (5-19); BLOOD UREA NITROGEN 21 mg/dL (7-20); CARBON DIOXIDE 25 mmol/L (22-30); CHLORIDE 108 mmol/L (98-107); GLUCOSE 154 mg/dL (75-110); POTASSIUM 3.6 mmol/L (3.6-5.0); SODIUM 140.5 mmol/L (137-145)
[2018-09-02 04:45] LABS: ARTERIAL BLOOD BASE EXCESS 2.1 mmol/L; ARTERIAL BLOOD FIO2 45%; ARTERIAL BLOOD H2CO3 1.19 mmol/L (1.05-1.35); ARTERIAL BLOOD HCO3 26.3 mmol/L (20-24); ARTERIAL BLOOD O2 SATURATION 95.4 % (94-98); ARTERIAL BLOOD PCO2 39.5 mmHg (35-45); ARTERIAL BLOOD PH 7.44 (7.35-7.45); ARTERIAL BLOOD PO2 74.1 mmHg (80-100); ARTERIAL BLOOD TOTAL CO2 27.5 mmol/L (23-27)
[2018-09-02] MEDS: GABAPENTIN 100 MG CAPSULE PO SCH ×3 (06:07→22:17)
--- NOTE | 2018-09-02 07:14 | RADIOLOGY REPORT (SQ) ---
EXAM DESCRIPTION: XR CHEST 1 VIEW COMPLETED DATE/TME: 09/02/2018 06:00 CLINICAL HISTORY: 52 years Male, resp failure COMPARISON: One day prior. NUMBER OF VIEWS/TECHNIQUE: 1/AP FINDINGS: Moderate left basilar opacity-effusion.Adequate appearing endotracheal tube. Likely adequate appearing enteric tube partially obscured. Normal cardiac silhouette size. No pneumothorax. Stable bony thorax. IMPRESSION: No significant change.
--- NOTE | 2018-09-02 07:57 | EKG REPORT ---
SEVERITY:- NORMAL ECG - SINUS RHYTHM : Confirmed on behalf of: Tejal Gentile MD 02-Sep-2018 07:56:28
--- NOTE | 2018-09-02 08:44 | PDOC PROGRESS REPORT ---
Subjective Progress Note for:: 09/02/18 Subjective:: Patient is currently intubated Yesterday according to the nursing staff patient was complaining of some chest pain patient's chest x-ray EKG and cardiac enzyme was all negative I believe most likely because of the tube Patient's try to wean off trial yesterday Otherwise no other events happen Reason For Visit: ACUTE HYPERCAPNIC RESPIRATORY FAILURE Physical Exam Vital Signs: Temp Pulse Resp BP Pulse Ox 99.5 F 71 18 93/58 L 94 09/02/18 08:00 09/02/18 08:00 09/02/18 08:00 09/02/18 08:00 09/02/18 08:00 Intake & Output 09/01/18 09/02/18 09/03/18 06:59 06:59 06:59 Intake Total 1765 2414 Output Total 1290 1750 75 Balance 475 664 -75 Weight 106.7 kg 105.7 kg Physical Exam: he is currently intubated but alert awake denied any complaints General appearance: PRESENT: no acute distress, well-developed, well-nourished Eye exam: PRESENT: PERRLA Respiratory exam: PRESENT: clear to auscultation allyson Cardiovascular exam: PRESENT: +S1, +S2 GI/Abdominal exam: PRESENT: normal bowel sounds, soft Neurological exam: PRESENT: alert, awake Skin exam: PRESENT: dry Results Laboratory Results: 09/02/18 03:58 09/02/18 03:58 09/02/18 09/02/18 09/02/18 03:58 03:58 04:30 WBC 6.3 RBC 3.69 L Hgb 11.5 L Hct 33.7 L MCV 91 MCH 31.0 MCHC 34.0 RDW 14.3 H Plt Count 122 L Seg Neutrophils % 73.9 Lymphocytes % 16.7 Monocytes % 6.7 Eosinophils % 2.0 Basophils % 0.7 Absolute Neutrophils 4.7 Absolute Lymphocytes 1.1 Absolute Monocytes 0.4 Absolute Eosinophils 0.1 Absolute Basophils 0.0 Carbonic Acid 1.19 HCO3/H2CO3 Ratio 22:1 ABG pH 7.44 ABG pCO2 39.5 ABG pO2 74.1 L ABG HCO3 26.3 H ABG O2 Saturation 95.4 ABG Base Excess 2.1 FiO2 45% Sodium 140.5 Potassium 3.6 Chloride 108 H Carbon Dioxide 25 Anion Gap 8 BUN 21 H Creatinine 0.77 Est GFR ( Amer) > 60 Est GFR (Non-Af Amer) > 60 Glucose 154 H Calcium 8.0 L Magnesium 1.9 08/30/18 08/30/18 08/31/18 21:26 21:26 03:41 Creatine Kinase 60 82 CK-MB (CK-2) 3.65 Troponin I < 0.012 08/31/18 08/31/18 08/31/18 03:41 10:20 10:20 Creatine Kinase 83 CK-MB (CK-2) 2.64 1.72 Troponin I 0.019 < 0.012 08/31/18 08/31/18 08/31/18 13:54 13:54 19:50 Creatine Kinase 72 67 CK-MB (CK-2) 2.06 Troponin I < 0.012 08/31/18 09/01/18 09/01/18 19:50 17:45 17:45 Creatine Kinase 63 CK-MB (CK-2) 2.17 1.97 Troponin I < 0.012 < 0.012 Impressions: Chest X-Ray 09/02/18 06:00 IMPRESSION: No significant change. Assessment & Plan - Diagnosis (1) Acute and chronic respiratory failure with hypercapnia Is this a current diagnosis for this admission?: Yes Plan: He also improving (2) COPD with acute exacerbation Is this a current diagnosis for this admission?: Yes Plan: And is on nebulizer treatments (3) Diabetes mellitus type 2 in obese Is this a current diagnosis for this admission?: Yes Plan: Sliding scale (4) Hypertension Qualifiers: Hypertension type: essential hypertension Is this a current diagnosis for this admission?: Yes (5) Noncompliance Is this a current diagnosis for this admission?: Yes (6) Tobacco abuse Is this a current diagnosis for this admission?: Yes - Time Time Spent with patient: 15-24 minutes Medications reviewed and adjusted accordingly: Yes Anticipated discharge: Home Within: Other - Plan Summary Plan Summary: Continues to follow with the pulmonary continues to current medication
[2018-09-02] MEDS: LEVOFLOXACIN 500 MG/D5W RTU 500 MG/100 ML RTUPB IV SCH (08:47)
[2018-09-02] MEDS: IPRATROPIUM/ALBUTEROL 0.5-2.5 MG/3 ML AMPUL NEB SCH ×3 (09:21→20:57)
[2018-09-02] MEDS: ASPIRIN 81 MG TABLET, ENT COATED PO SCH (10:38)
[2018-09-02] MEDS: ENOXAPARIN SODIUM INJ 40 MG/0.4 ML DISP.SYRIN SUBCUT SCH (10:56)
[2018-09-02] MEDS: FAMOTIDINE INJ/PF 20 MG/2 ML SDV IV SCH ×2 (10:56→22:17)
[2018-09-02] MEDS: DILTIAZEM HCL 120 MG CAP.SR.24H PO SCH (10:56)
[2018-09-02] MEDS: CETIRIZINE 10 MG TABLET PO SCH (10:56)
[2018-09-02] MEDS: TAMSULOSIN HCL 0.4 MG CAP.SR.24H PO SCH (17:24)
[2018-09-02] MEDS: ATORVASTATIN CALCIUM 80 MG TABLET PO SCH (22:16)
[2018-09-03] MEDS: INSULIN LISPRO 100 UNIT/ML 3 ML VIAL SUBCUT SCH ×4 (00:28→18:51)
[2018-09-03] MEDS: PROPOFOL 1,000 MG/100 ML INFUS..BTL IV PRN ×2 (03:08→06:09)
[2018-09-03 04:37] LABS: ANION GAP 5 (5-19); BLOOD UREA NITROGEN 15 mg/dL (7-20); CALCIUM 8.2 mg/dL (8.4-10.2); CARBON DIOXIDE 29 mmol/L (22-30); CHLORIDE 108 mmol/L (98-107); GLUCOSE 116 mg/dL (75-110); POTASSIUM 4.1 mmol/L (3.6-5.0); SODIUM 142.1 mmol/L (137-145)
[2018-09-03 04:57] LABS: ARTERIAL BLOOD BASE EXCESS 1.6 mmol/L; ARTERIAL BLOOD H2CO3 1.41 mmol/L (1.05-1.35); ARTERIAL BLOOD HCO3 27.1 mmol/L (20-24); ARTERIAL BLOOD O2 SATURATION 98.3 % (94-98); ARTERIAL BLOOD PCO2 46.7 mmHg (35-45); ARTERIAL BLOOD PH 7.38 (7.35-7.45); ARTERIAL BLOOD PO2 120.8 mmHg (80-100); ARTERIAL BLOOD TOTAL CO2 28.6 mmol/L (23-27)
[2018-09-03 04:58] LABS: ARTERIAL BLOOD FIO2 40%
[2018-09-03] MEDS: GABAPENTIN 100 MG CAPSULE PO SCH ×3 (06:09→21:14)
[2018-09-03] MEDS: NORMAL SALINE 1000 ML 1,000 ML IV PRN (06:09)
--- NOTE | 2018-09-03 07:18 | RADIOLOGY REPORT (SQ) ---
EXAM DESCRIPTION: XR CHEST 1 VIEW COMPLETED DATE/TME: 09/03/2018 06:00 CLINICAL HISTORY: 52 years Male, resp failure COMPARISON: One day prior. NUMBER OF VIEWS/TECHNIQUE: 1/AP FINDINGS: Mild mixed interstitial and airspace opacity.Adequate appearing endotracheal tube. Likely adequate appearing enteric tube partially obscured. Normal cardiac silhouette size. No pneumothorax. Stable bony thorax. IMPRESSION: No significant change.
--- NOTE | 2018-09-03 08:22 | PDOC PROGRESS REPORT ---
Subjective Progress Note for:: 09/03/18 Subjective:: Patient is currently intubated Patient sputum culture grew Enterobacter's and one blood culture is positive for gram-positive cocci which are sensitive to the Levaquin Patient currently alert All blood work is stable No nursing concern Reason For Visit: ACUTE HYPERCAPNIC RESPIRATORY FAILURE Physical Exam Vital Signs: Temp Pulse Resp BP Pulse Ox 98.8 F 72 14 107/61 97 09/03/18 07:54 09/03/18 07:54 09/03/18 07:54 09/03/18 07:54 09/03/18 07:54 Intake & Output 09/02/18 09/03/18 09/04/18 06:59 06:59 06:59 Intake Total 2414 2497 Output Total 1750 1815 75 Balance 664 682 -75 Weight 105.7 kg 106.8 kg Physical Exam: Currently intubated under sedation General appearance: PRESENT: no acute distress, well-developed, well-nourished Head exam: PRESENT: atraumatic, normocephalic Eye exam: PRESENT: conjunctiva pink, EOMI, PERRLA. ABSENT: scleral icterus Ear exam: PRESENT: normal external ear exam Mouth exam: PRESENT: moist, tongue midline Neck exam: PRESENT: full ROM. ABSENT: carotid bruit, JVD, lymphadenopathy, thyromegaly Cardiovascular exam: PRESENT: RRR. ABSENT: diastolic murmur, rubs, systolic murmur Vascular exam: PRESENT: normal capillary refill GI/Abdominal exam: PRESENT: normal bowel sounds, soft. ABSENT: distended, guarding, mass, organolmegaly, rebound, tenderness Rectal exam: PRESENT: deferred Neurological exam: PRESENT: alert, awake. ABSENT: motor sensory deficit Psychiatric exam: PRESENT: appropriate affect, normal mood. ABSENT: homicidal ideation, suicidal ideation Skin exam: PRESENT: dry, intact, warm. ABSENT: cyanosis, rash Results Laboratory Results: 09/03/18 04:04 09/03/18 04:04 09/03/18 09/03/18 09/03/18 04:04 04:04 04:45 WBC 5.8 RBC 4.72 Hct 43.5 MCV 92 MCH 31.2 MCHC 33.8 RDW 14.4 H Seg Neutrophils % Not Reportable Lymphocytes % Not Reportable Monocytes % Not Reportable Eosinophils % Not Reportable Basophils % Not Reportable Absolute Neutrophils Not Reportable Absolute Lymphocytes Not Reportable Absolute Monocytes Not Reportable Absolute Eosinophils Not Reportable Absolute Basophils Not Reportable Carbonic Acid 1.41 H HCO3/H2CO3 Ratio 19:1 ABG pH 7.38 ABG pCO2 46.7 H ABG pO2 120.8 H ABG HCO3 27.1 H ABG O2 Saturation 98.3 H ABG Base Excess 1.6 FiO2 40% Sodium 142.1 Potassium 4.1 Chloride 108 H Carbon Dioxide 29 Anion Gap 5 BUN 15 Creatinine 0.70 Est GFR ( Amer) > 60 Est GFR (Non-Af Amer) > 60 Glucose 116 H Calcium 8.2 L Magnesium 2.0 08/30/18 21:26 Catheterized Urine Urine Culture - Final NO GROWTH 2 DAYS 08/30/18 08/30/18 08/31/18 21:26 21:26 03:41 Creatine Kinase 60 82 CK-MB (CK-2) 3.65 Troponin I < 0.012 08/31/18 08/31/18 08/31/18 03:41 10:20 10:20 Creatine Kinase 83 CK-MB (CK-2) 2.64 1.72 Troponin I 0.019 < 0.012 08/31/18 08/31/18 08/31/18 13:54 13:54 19:50 Creatine Kinase 72 67 CK-MB (CK-2) 2.06 Troponin I < 0.012 08/31/18 09/01/18 09/01/18 19:50 17:45 17:45 Creatine Kinase 63 CK-MB (CK-2) 2.17 1.97 Troponin I < 0.012 < 0.012 Impressions: Chest X-Ray 09/03/18 06:00 IMPRESSION: No significant change. Assessment & Plan - Diagnosis (1) Acute and chronic respiratory failure with hypercapnia Is this a current diagnosis for this admission?: Yes Plan: He also improving (2) COPD with acute exacerbation Is this a current diagnosis for this admission?: Yes Plan: And is on nebulizer treatments (3) Diabetes mellitus type 2 in obese Is this a current diagnosis for this admission?: Yes Plan: Sliding scale (4) Hypertension Qualifiers: Hypertension type: essential hypertension Qualified Code(s): I10 - Essential (primary) hypertension Is this a current diagnosis for this admission?: Yes (5) Noncompliance Is this a current diagnosis for this admission?: Yes (6) Tobacco abuse Is this a current diagnosis for this admission?: Yes - Time Time Spent with patient: 25-34 minutes Medications reviewed and adjusted accordingly: Yes Anticipated discharge: Home Within: Other - Plan Summary Plan Summary: Continues to follow with the pulmonary Continues to IV Levaquin
[2018-09-03] MEDS: IPRATROPIUM/ALBUTEROL 0.5-2.5 MG/3 ML AMPUL NEB SCH ×3 (08:43→20:43)
[2018-09-03] MEDS: LEVOFLOXACIN 500 MG/D5W RTU 500 MG/100 ML RTUPB IV SCH (11:08)
[2018-09-03 11:09] LABS: ABSOLUTE EOSINOPHILS # (AUTO) 0.2 10^3/uL (0.0-0.6); ABSOLUTE LYMPHOCYTES (AUTO) 1.2 10^3/uL (0.5-4.7); ABSOLUTE MONOCYTES (AUTO) 0.4 10^3/uL (0.1-1.4); ABSOLUTE NEUT (AUTO) 4.4 10^3/uL (1.7-8.2); BASOPHILS % (AUTO) 0.7 % (0-2); EOSINOPHILS % (AUTO) 3.4 % (0-6); HEMOGLOBIN 13.6 g/dL (13.5-17.0); LYMPHOCYTES % (AUTO) 18.8 % (13-45); MEAN CORPUSCULAR HEMOGLOBIN 31.4 pg (27.0-33.4); MEAN CORPUSCULAR HGB CONC 34.1 g/dL (32.0-36.0); MEAN CORPUSCULAR VOLUME 92 fl (80-97); MONOCYTES % (AUTO) 6.2 % (3-13); PLATELET COUNT 126 10^3/uL (150-450); RED BLOOD COUNT 4.34 10^6/uL (4.35-5.55); RED CELL DISTRIBUTION WIDTH 14.1 % (11.5-14.0); SEGMENTED NEUTROPHILS % (AUTO) 70.9 % (42-78); TOTAL CELLS COUNTED % (AUTO) 100 %; WHITE BLOOD COUNT 6.3 10^3/uL (4.0-10.5)
[2018-09-03] MEDS: ENOXAPARIN SODIUM INJ 40 MG/0.4 ML DISP.SYRIN SUBCUT SCH (11:09)
[2018-09-03] MEDS: CETIRIZINE 10 MG TABLET PO SCH (11:11)
[2018-09-03] MEDS: ASPIRIN 81 MG TABLET, ENT COATED PO SCH (11:11)
[2018-09-03] MEDS: FAMOTIDINE INJ/PF 20 MG/2 ML SDV IV SCH ×2 (11:11→21:15)
[2018-09-03] MEDS: DILTIAZEM HCL 120 MG CAP.SR.24H PO SCH (12:20)
[2018-09-03] MEDS: TAMSULOSIN HCL 0.4 MG CAP.SR.24H PO SCH (18:50)
[2018-09-03] MEDS: ATORVASTATIN CALCIUM 80 MG TABLET PO SCH (21:14)
[2018-09-04] MEDS: INSULIN LISPRO 100 UNIT/ML 3 ML VIAL SUBCUT SCH ×5 (00:23→22:59)
[2018-09-04 04:10] LABS: ABSOLUTE EOSINOPHILS # (AUTO) 0.3 10^3/uL (0.0-0.6); ABSOLUTE MONOCYTES (AUTO) 0.4 10^3/uL (0.1-1.4); ABSOLUTE NEUT (AUTO) 3.1 10^3/uL (1.7-8.2); BASOPHILS % (AUTO) 0.7 % (0-2); EOSINOPHILS % (AUTO) 5.9 % (0-6); HEMATOCRIT 36.5 % (37.9-51.0); HEMOGLOBIN 12.5 g/dL (13.5-17.0); LYMPHOCYTES % (AUTO) 21.1 % (13-45); MEAN CORPUSCULAR HEMOGLOBIN 31.3 pg (27.0-33.4); MEAN CORPUSCULAR HGB CONC 34.3 g/dL (32.0-36.0); MEAN CORPUSCULAR VOLUME 91 fl (80-97); PLATELET COUNT 139 10^3/uL (150-450); RED BLOOD COUNT 4.01 10^6/uL (4.35-5.55); RED CELL DISTRIBUTION WIDTH 13.9 % (11.5-14.0); SEGMENTED NEUTROPHILS % (AUTO) 64.3 % (42-78); TOTAL CELLS COUNTED % (AUTO) 100 %; WHITE BLOOD COUNT 4.8 10^3/uL (4.0-10.5)
[2018-09-04 04:27] LABS: ALANINE AMINOTRANSFERASE 18 U/L (21-72); ALBUMIN 3.2 g/dL (3.5-5.0); ALKALINE PHOSPHATASE 65 U/L (38-126); ANION GAP 5 (5-19); ASPARTATE AMINO TRANSFERASE 14 U/L (17-59); BILIRUBIN,DIRECT 0.2 mg/dL (0.0-0.4); BILIRUBIN,TOTAL 0.5 mg/dL (0.2-1.3); BLOOD UREA NITROGEN 13 mg/dL (7-20); CALCIUM 8.7 mg/dL (8.4-10.2); CARBON DIOXIDE 31 mmol/L (22-30); CHLORIDE 106 mmol/L (98-107); GLUCOSE 147 mg/dL (75-110); POTASSIUM 3.8 mmol/L (3.6-5.0); SODIUM 142.4 mmol/L (137-145); TOTAL PROTEIN 5.7 g/dL (6.3-8.2)
[2018-09-04 05:35] LABS: ARTERIAL BLOOD BASE EXCESS 5.9 mmol/L; ARTERIAL BLOOD H2CO3 1.64 mmol/L (1.05-1.35); ARTERIAL BLOOD HCO3 32.2 mmol/L (20-24); ARTERIAL BLOOD O2 SATURATION 97.1 % (94-98); ARTERIAL BLOOD PCO2 54.4 mmHg (35-45); ARTERIAL BLOOD PH 7.39 (7.35-7.45); ARTERIAL BLOOD PO2 95.9 mmHg (80-100); ARTERIAL BLOOD TOTAL CO2 33.9 mmol/L (23-27)
[2018-09-04 05:37] LABS: ARTERIAL BLOOD FIO2 40%
[2018-09-04] MEDS: GABAPENTIN 100 MG CAPSULE PO SCH ×3 (05:53→22:59)
--- NOTE | 2018-09-04 06:36 | RADIOLOGY REPORT (SQ) ---
EXAM DESCRIPTION: XR CHEST 1 VIEW COMPLETED DATE/TME: 09/04/2018 06:00 CLINICAL HISTORY: 52 years Male, resp. failure COMPARISON: One day prior. NUMBER OF VIEWS/TECHNIQUE: 1/AP FINDINGS: Mild mixed interstitial and airspace opacity. Normal cardiac silhouette size. No pneumothorax. Stable bony thorax. IMPRESSION: Interval extubation.
[2018-09-04] MEDS: LEVOFLOXACIN 500 MG/D5W RTU 500 MG/100 ML RTUPB IV SCH (08:14)
[2018-09-04] MEDS ORDERED: DEXTROSE 50%-WATER 25 GM/50 ML DISP.SYRIN IV PRN ×2 (08:17)
[2018-09-04] MEDS ORDERED: GLUCAGON,HUMAN RECOMB 1 MG INJ IM PRN (08:17)
[2018-09-04] MEDS ORDERED: DEXTROSE 40% GEL 15 GM TUBE PO PRN ×2 (08:17)
--- NOTE | 2018-09-04 08:33 | PDOC PROGRESS REPORT ---
Subjective Progress Note for:: 09/04/18 Subjective:: Patient is currently extubated Doing well Denied any chest pain to than any shortness of the breath Reason For Visit: ACUTE HYPERCAPNIC RESPIRATORY FAILURE Physical Exam Vital Signs: Temp Pulse Resp BP Pulse Ox 99.0 F 75 16 149/73 H 93 09/04/18 05:42 09/04/18 02:00 09/04/18 05:42 09/04/18 05:42 09/04/18 05:42 Intake & Output 09/03/18 09/04/18 09/05/18 06:59 06:59 06:59 Intake Total 2497 920 Output Total 1815 3015 Balance 682 -1625 Weight 106.8 kg 104.9 kg General appearance: PRESENT: no acute distress, well-developed, well-nourished Head exam: PRESENT: atraumatic, normocephalic Eye exam: PRESENT: conjunctiva pink, EOMI, PERRLA. ABSENT: scleral icterus Ear exam: PRESENT: normal external ear exam Mouth exam: PRESENT: moist, tongue midline Neck exam: PRESENT: full ROM. ABSENT: carotid bruit, JVD, lymphadenopathy, thyromegaly Respiratory exam: PRESENT: clear to auscultation allyson Cardiovascular exam: PRESENT: RRR. ABSENT: diastolic murmur, rubs, systolic murmur Pulses: PRESENT: normal dorsalis pedis pul, +2 pedal pulses bilateral Vascular exam: PRESENT: normal capillary refill GI/Abdominal exam: PRESENT: normal bowel sounds, soft. ABSENT: distended, guarding, mass, organolmegaly, rebound, tenderness Rectal exam: PRESENT: deferred Neurological exam: PRESENT: alert, awake, oriented to person, oriented to place, oriented to time, oriented to situation, CN II-XII grossly intact. ABSENT: motor sensory deficit Psychiatric exam: PRESENT: appropriate affect, normal mood. ABSENT: homicidal ideation, suicidal ideation Skin exam: PRESENT: dry, intact, warm. ABSENT: cyanosis, rash Results Laboratory Results: 09/04/18 03:40 09/04/18 03:40 09/03/18 09/03/18 09/04/18 04:04 10:55 03:40 WBC 6.3 4.8 RBC 4.34 L 4.01 L Hgb 13.6 D 12.5 L Hct 40.0 36.5 L MCV 92 91 MCH 31.4 31.3 MCHC 34.1 34.3 RDW 14.1 H 13.9 Plt Count 126 L 139 L Seg Neutrophils % 70.9 64.3 Lymphocytes % 18.8 21.1 Monocytes % 6.2 8.0 Eosinophils % 3.4 5.9 Basophils % 0.7 0.7 Absolute Neutrophils 4.4 3.1 Absolute Lymphocytes 1.2 1.0 Absolute Monocytes 0.4 0.4 Absolute Eosinophils 0.2 0.3 Absolute Basophils 0.0 0.0 Carbonic Acid HCO3/H2CO3 Ratio ABG pH ABG pCO2 ABG pO2 ABG HCO3 ABG O2 Saturation ABG Base Excess FiO2 Sodium Potassium Chloride Carbon Dioxide Anion Gap BUN Creatinine Est GFR ( Amer) Est GFR (Non-Af Amer) Glucose Calcium Magnesium Total Bilirubin AST ALT Alkaline Phosphatase Total Protein Albumin 09/04/18 09/04/18 03:40 05:30 WBC RBC Hgb Hct MCV MCH MCHC RDW Plt Count Seg Neutrophils % Lymphocytes % Monocytes % Eosinophils % Basophils % Absolute Neutrophils Absolute Lymphocytes Absolute Monocytes Absolute Eosinophils Absolute Basophils Carbonic Acid 1.64 H HCO3/H2CO3 Ratio 19:1 ABG pH 7.39 ABG pCO2 54.4 H ABG pO2 95.9 ABG HCO3 32.2 H ABG O2 Saturation 97.1 ABG Base Excess 5.9 FiO2 40% Sodium 142.4 Potassium 3.8 Chloride 106 Carbon Dioxide 31 H Anion Gap 5 BUN 13 Creatinine 0.68 Est GFR ( Amer) > 60 Est GFR (Non-Af Amer) > 60 Glucose 147 H Calcium 8.7 Magnesium 1.9 Total Bilirubin 0.5 AST 14 L ALT 18 L Alkaline Phosphatase 65 Total Protein 5.7 L Albumin 3.2 L 08/31/18 18:25 Tracheal Aspirate Gram Stain - Final 08/30/18 22:18 Blood Blood Culture - Final Strep Parasanguis Micrococcus Species 08/30/18 08/30/18 08/31/18 21:26 21:26 03:41 Creatine Kinase 60 82 CK-MB (CK-2) 3.65 Troponin I < 0.012 08/31/18 08/31/18 08/31/18 03:41 10:20 10:20 Creatine Kinase 83 CK-MB (CK-2) 2.64 1.72 Troponin I 0.019 < 0.012 08/31/18 08/31/18 08/31/18 13:54 13:54 19:50 Creatine Kinase 72 67 CK-MB (CK-2) 2.06 Troponin I < 0.012 08/31/18 09/01/18 09/01/18 19:50 17:45 17:45 Creatine Kinase 63 CK-MB (CK-2) 2.17 1.97 Troponin I < 0.012 < 0.012 Impressions: Chest X-Ray 09/04/18 06:00 IMPRESSION: Interval extubation. Assessment & Plan - Diagnosis (1) Acute and chronic respiratory failure with hypercapnia Is this a current diagnosis for this admission?: Yes (2) COPD with acute exacerbation Is this a current diagnosis for this admission?: Yes (3) Diabetes mellitus type 2 in obese Is this a current diagnosis for this admission?: Yes (4) Hypertension Qualifiers: Hypertension type: essential hypertension Qualified Code(s): I10 - Essential (primary) hypertension Is this a current diagnosis for this admission?: Yes (5) Noncompliance Is this a current diagnosis for this admission?: Yes (6) Tobacco abuse Is this a current diagnosis for this admission?: Yes - Plan Summary Plan Summary: Downgraded to the IMCU
[2018-09-04] MEDS: IPRATROPIUM/ALBUTEROL 0.5-2.5 MG/3 ML AMPUL NEB SCH ×3 (08:47→19:09)
[2018-09-04] MEDS: CETIRIZINE 10 MG TABLET PO SCH (09:58)
[2018-09-04] MEDS: ASPIRIN 81 MG TABLET, ENT COATED PO SCH (09:58)
[2018-09-04] MEDS: DILTIAZEM HCL 120 MG CAP.SR.24H PO SCH (09:58)
[2018-09-04] MEDS: FAMOTIDINE INJ/PF 20 MG/2 ML SDV IV SCH ×2 (09:58→22:59)
[2018-09-04] MEDS: ENOXAPARIN SODIUM INJ 40 MG/0.4 ML DISP.SYRIN SUBCUT SCH (09:59)
[2018-09-04] MEDS: INSULIN GLARGINE,HUM.REC.ANLOG 300 UNIT/3 ML INSULN.PEN SUBCUT SCH ×2 (13:06→23:00)
[2018-09-04] MEDS: TAMSULOSIN HCL 0.4 MG CAP.SR.24H PO SCH (17:23)
[2018-09-04] MEDS: ATORVASTATIN CALCIUM 80 MG TABLET PO SCH (22:59)
[2018-09-05 03:56] LABS: ABSOLUTE EOSINOPHILS # (AUTO) 0.2 10^3/uL (0.0-0.6); ABSOLUTE LYMPHOCYTES (AUTO) 1.1 10^3/uL (0.5-4.7); ABSOLUTE MONOCYTES (AUTO) 0.4 10^3/uL (0.1-1.4); ABSOLUTE NEUT (AUTO) 2.7 10^3/uL (1.7-8.2); BASOPHILS % (AUTO) 0.9 % (0-2); EOSINOPHILS % (AUTO) 4.6 % (0-6); HEMATOCRIT 37.7 % (37.9-51.0); HEMOGLOBIN 12.8 g/dL (13.5-17.0); LYMPHOCYTES % (AUTO) 25.6 % (13-45); MEAN CORPUSCULAR HEMOGLOBIN 30.7 pg (27.0-33.4); MEAN CORPUSCULAR VOLUME 90 fl (80-97); MONOCYTES % (AUTO) 9.1 % (3-13); PLATELET COUNT 149 10^3/uL (150-450); RED BLOOD COUNT 4.18 10^6/uL (4.35-5.55); RED CELL DISTRIBUTION WIDTH 14.2 % (11.5-14.0); SEGMENTED NEUTROPHILS % (AUTO) 59.8 % (42-78); TOTAL CELLS COUNTED % (AUTO) 100 %; WHITE BLOOD COUNT 4.5 10^3/uL (4.0-10.5)
[2018-09-05 04:09] LABS: ANION GAP 7 (5-19); BLOOD UREA NITROGEN 17 mg/dL (7-20); CALCIUM 8.8 mg/dL (8.4-10.2); CARBON DIOXIDE 32 mmol/L (22-30); CHLORIDE 103 mmol/L (98-107); GLUCOSE 205 mg/dL (75-110); POTASSIUM 4.1 mmol/L (3.6-5.0); SODIUM 141.8 mmol/L (137-145)
[2018-09-05] MEDS: GABAPENTIN 100 MG CAPSULE PO SCH ×3 (06:03→21:19)
[2018-09-05] MEDS: LEVOFLOXACIN 500 MG/D5W RTU 500 MG/100 ML RTUPB IV SCH (08:04)
[2018-09-05] MEDS: IPRATROPIUM/ALBUTEROL 0.5-2.5 MG/3 ML AMPUL NEB SCH ×3 (09:13→21:03)
[2018-09-05] MEDS: CETIRIZINE 10 MG TABLET PO SCH (09:46)
[2018-09-05] MEDS: FAMOTIDINE INJ/PF 20 MG/2 ML SDV IV SCH ×2 (09:46→21:19)
[2018-09-05] MEDS: ENOXAPARIN SODIUM INJ 40 MG/0.4 ML DISP.SYRIN SUBCUT SCH (09:46)
[2018-09-05] MEDS: DILTIAZEM HCL 120 MG CAP.SR.24H PO SCH (09:46)
[2018-09-05] MEDS: ASPIRIN 81 MG TABLET, ENT COATED PO SCH (09:46)
[2018-09-05] MEDS: INSULIN GLARGINE,HUM.REC.ANLOG 300 UNIT/3 ML INSULN.PEN SUBCUT SCH ×2 (09:47→22:22)
[2018-09-05] MEDS: INSULIN LISPRO 100 UNIT/ML 3 ML VIAL SUBCUT SCH ×4 (09:47→22:21)
[2018-09-05] MEDS ORDERED: ACETAMINOPHEN 325 MG TABLET PO PRN (13:40)
--- NOTE | 2018-09-05 13:51 | PDOC PROGRESS REPORT ---
Subjective Progress Note for:: 09/05/18 Subjective:: Patient complain about sorethroat and knee joint aches and pain.Post extubation and remain stable respiratory crockett. No chest pain. No nausea, vomiting or abdominal pain. Tolerating oral feeding. No reported fever or chills. Reason For Visit: ACUTE HYPERCAPNIC RESPIRATORY FAILURE Physical Exam Vital Signs: Temp Pulse Resp BP Pulse Ox 98.1 F 81 18 110/61 94 09/05/18 12:00 09/05/18 12:00 09/05/18 12:00 09/05/18 12:00 09/05/18 12:00 Intake & Output 09/04/18 09/05/18 09/06/18 06:59 06:59 06:59 Intake Total 920 1617 Output Total 2545 1575 360 Balance -1625 42 -360 Weight 104.9 kg 105.6 kg General appearance: PRESENT: no acute distress, obese, well-developed, well- nourished Head exam: PRESENT: atraumatic, normocephalic Eye exam: PRESENT: conjunctiva pink, EOMI, PERRLA. ABSENT: scleral icterus Ear exam: PRESENT: normal external ear exam Mouth exam: PRESENT: moist Respiratory exam: PRESENT: decreased breath sounds - at lung bases Cardiovascular exam: PRESENT: RRR. ABSENT: diastolic murmur, rubs, systolic murmur Vascular exam: PRESENT: normal capillary refill, pallor GI/Abdominal exam: PRESENT: normal bowel sounds, soft. ABSENT: distended, guarding, mass, organolmegaly, rebound, tenderness Extremities exam: ABSENT: pedal edema Neurological exam: PRESENT: alert, awake, oriented to person, oriented to place, oriented to time, oriented to situation, CN II-XII grossly intact. ABSENT: motor sensory deficit Psychiatric exam: PRESENT: appropriate affect, normal mood. ABSENT: homicidal ideation, suicidal ideation Skin exam: PRESENT: dry, warm Results Laboratory Results: 09/05/18 03:39 09/05/18 03:39 09/05/18 09/05/18 03:39 03:39 WBC 4.5 RBC 4.18 L Hgb 12.8 L Hct 37.7 L MCV 90 MCH 30.7 MCHC 34.0 RDW 14.2 H Plt Count 149 L Seg Neutrophils % 59.8 Lymphocytes % 25.6 Monocytes % 9.1 Eosinophils % 4.6 Basophils % 0.9 Absolute Neutrophils 2.7 Absolute Lymphocytes 1.1 Absolute Monocytes 0.4 Absolute Eosinophils 0.2 Absolute Basophils 0.0 Sodium 141.8 Potassium 4.1 Chloride 103 Carbon Dioxide 32 H Anion Gap 7 BUN 17 Creatinine 0.76 Est GFR ( Amer) > 60 Est GFR (Non-Af Amer) > 60 Glucose 205 H Calcium 8.8 08/30/18 21:26 Blood Blood Culture - Final NO GROWTH IN 5 DAYS 08/31/18 18:25 Tracheal Aspirate Gram Stain - Final 08/31/18 18:25 Tracheal Aspirate Sputum Culture - Final Enterobacter Cloacae Reduced Normal Ann 08/30/18 08/30/18 08/31/18 21:26 21:26 03:41 Creatine Kinase 60 82 CK-MB (CK-2) 3.65 Troponin I < 0.012 08/31/18 08/31/18 08/31/18 03:41 10:20 10:20 Creatine Kinase 83 CK-MB (CK-2) 2.64 1.72 Troponin I 0.019 < 0.012 08/31/18 08/31/18 08/31/18 13:54 13:54 19:50 Creatine Kinase 72 67 CK-MB (CK-2) 2.06 Troponin I < 0.012 08/31/18 09/01/18 09/01/18 19:50 17:45 17:45 Creatine Kinase 63 CK-MB (CK-2) 2.17 1.97 Troponin I < 0.012 < 0.012 Impressions: Chest X-Ray 09/04/18 06:00 IMPRESSION: Interval extubation. Assessment & Plan - Diagnosis (1) Acute and chronic respiratory failure with hypercapnia Is this a current diagnosis for this admission?: Yes Plan: Start on Cepachol lozenge 1 tab po [id number] prn for sorethroat. Continue other current medication management. (2) COPD with acute exacerbation Is this a current diagnosis for this admission?: Yes Plan: Continue current medication management. (3) Diabetes mellitus type 2 in obese Is this a current diagnosis for this admission?: Yes Plan: Continue current medication management. (4) Hypertension Qualifiers: Hypertension type: essential hypertension Qualified Code(s): I10 - Essential (primary) hypertension Is this a current diagnosis for this admission?: Yes Plan: Continue current medication management. (5) Tobacco abuse Is this a current diagnosis for this admission?: Yes Plan: Counseling was done at bedside during this visit about smoking cessation. (6) BMI 40.0-44.9, adult Is this a current diagnosis for this admission?: Yes Plan: Emphasized lifestyle modification, dietary adjustment and caloric restriction as well s walking exercise. - Time Time Spent with patient: 25-34 minutes - Inpatient Certification Based on my medical assessment, after consideration of the patient's comorbidities, presenting symptoms, or acuity I expect that the services needed warrant INPATIENT care.: Yes I certify that my determination is in accordance with my understanding of Medicare's requirements for reasonable and necessary INPATIENT services [42 CFR 412.3e].: Yes Medical Necessity: Significant Comorbidiites Make Outpatient Treatment Too Ri karl, Need Close Monitoring Due to Risk of Patient Decompensation, Need For IV Fluids, Need For Continuous Telemetry Monitoring, Need for Nebulizer Therapy and Monitoring of Response, Need for IV Antibiotics, Risk of Complication if Not Cared For in Hospital, Risk of Diagnosis Which Will Require Inpatient Eval/Care/Monitoring Post Hospital Care: D/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 transfer to [facility] in progress. Encouraged participation in physical therapy program.
[2018-09-05] MEDS: BENZOCAINE/MENTHOL SORE THROAT LOZENGE BUCCAL PRN (15:42)
[2018-09-05] MEDS: TAMSULOSIN HCL 0.4 MG CAP.SR.24H PO SCH (17:23)
[2018-09-05] MEDS: ATORVASTATIN CALCIUM 80 MG TABLET PO SCH (21:19)
[2018-09-06] MEDS: GABAPENTIN 100 MG CAPSULE PO SCH ×3 (05:13→21:46)
[2018-09-06 05:25] LABS: ANION GAP 5 (5-19); BLOOD UREA NITROGEN 22 mg/dL (7-20); CARBON DIOXIDE 34 mmol/L (22-30); CHLORIDE 101 mmol/L (98-107); GLUCOSE 190 mg/dL (75-110); POTASSIUM 3.9 mmol/L (3.6-5.0); SODIUM 140.4 mmol/L (137-145)
[2018-09-06] MEDS: BENZOCAINE/MENTHOL SORE THROAT LOZENGE BUCCAL PRN (07:17)
[2018-09-06] MEDS: INSULIN LISPRO 100 UNIT/ML 3 ML VIAL SUBCUT SCH ×4 (07:50→21:46)
[2018-09-06] MEDS: LEVOFLOXACIN 500 MG/D5W RTU 500 MG/100 ML RTUPB IV SCH (07:50)
[2018-09-06] MEDS: IPRATROPIUM/ALBUTEROL 0.5-2.5 MG/3 ML AMPUL NEB SCH ×3 (09:42→20:10)
[2018-09-06] MEDS: DILTIAZEM HCL 120 MG CAP.SR.24H PO SCH (09:50)
[2018-09-06] MEDS: CETIRIZINE 10 MG TABLET PO SCH (09:50)
[2018-09-06] MEDS: FAMOTIDINE INJ/PF 20 MG/2 ML SDV IV SCH ×2 (09:51→21:46)
[2018-09-06] MEDS: ASPIRIN 81 MG TABLET, ENT COATED PO SCH (09:51)
[2018-09-06] MEDS: ENOXAPARIN SODIUM INJ 40 MG/0.4 ML DISP.SYRIN SUBCUT SCH (09:51)
[2018-09-06] MEDS: INSULIN GLARGINE,HUM.REC.ANLOG 300 UNIT/3 ML INSULN.PEN SUBCUT SCH ×2 (09:51→21:46)
--- NOTE | 2018-09-06 10:25 | PDOC PROGRESS REPORT ---
Subjective Progress Note for:: 09/06/18 Subjective:: Sore throat is better. No fever or chills. Reported burning sensation in penis with indwelling Pierce catheter. No chest pain and breathing is satisfactory. Reason For Visit: ACUTE HYPERCAPNIC RESPIRATORY FAILURE Physical Exam Vital Signs: Temp Pulse Resp BP Pulse Ox 98.6 F 73 18 116/58 L 96 09/06/18 03:53 09/06/18 09:42 09/06/18 09:42 09/06/18 03:53 09/06/18 09:42 Intake & Output 09/05/18 09/06/18 09/07/18 06:59 06:59 06:59 Intake Total 1617 872 100 Output Total 1575 1885 Balance 42 -1013 100 Weight 105.6 kg 102.7 kg Physical Exam: General appearance: PRESENT: no acute distress, obese, well-developed, well- nourished Head exam: PRESENT: atraumatic, normocephalic Eye exam: PRESENT: conjunctiva pink, EOMI, PERRLA. ABSENT: pallor,scleral icterus Ear exam: PRESENT: normal external ear exam Mouth exam: PRESENT: moist Respiratory exam: PRESENT: decreased breath sounds - at lung bases Cardiovascular exam: PRESENT: RRR. ABSENT: diastolic murmur, rubs, systolic murmur GI/Abdominal exam: PRESENT: normal bowel sounds, soft. ABSENT: distended, guarding, mass, organomegaly, rebound, tenderness Extremities exam: ABSENT: pedal edema Neurological exam: PRESENT: alert, awake, oriented to person, oriented to place, oriented to time, oriented to situation, CN II-XII grossly intact. ABSENT: motor sensory deficit Psychiatric exam: PRESENT: appropriate affect, normal mood. ABSENT: homicidal ideation, suicidal ideation Skin exam: PRESENT: dry, warm Results Laboratory Results: 09/05/18 03:39 09/06/18 04:49 09/06/18 04:49 Sodium 140.4 Potassium 3.9 Chloride 101 Carbon Dioxide 34 H Anion Gap 5 BUN 22 H Creatinine 0.77 Est GFR ( Amer) > 60 Est GFR (Non-Af Amer) > 60 Glucose 190 H Calcium 9.0 08/30/18 08/30/18 08/31/18 21:26 21:26 03:41 Creatine Kinase 60 82 CK-MB (CK-2) 3.65 Troponin I < 0.012 08/31/18 08/31/18 08/31/18 03:41 10:20 10:20 Creatine Kinase 83 CK-MB (CK-2) 2.64 1.72 Troponin I 0.019 < 0.012 08/31/18 08/31/18 08/31/18 13:54 13:54 19:50 Creatine Kinase 72 67 CK-MB (CK-2) 2.06 Troponin I < 0.012 08/31/18 09/01/18 09/01/18 19:50 17:45 17:45 Creatine Kinase 63 CK-MB (CK-2) 2.17 1.97 Troponin I < 0.012 < 0.012 Impressions: Chest X-Ray 09/04/18 06:00 IMPRESSION: Interval extubation. Assessment & Plan - Diagnosis (1) Acute and chronic respiratory failure with hypercapnia Is this a current diagnosis for this admission?: Yes (2) COPD with acute exacerbation Is this a current diagnosis for this admission?: Yes (3) Diabetes mellitus type 2 in obese Is this a current diagnosis for this admission?: Yes (4) Hypertension Qualifiers: Hypertension type: essential hypertension Qualified Code(s): I10 - Es sential (primary) hypertension Is this a current diagnosis for this admission?: Yes (5) Tobacco abuse Is this a current diagnosis for this admission?: Yes (6) BMI 40.0-44.9, adult Is this a current diagnosis for this admission?: Yes - Time Time Spent with patient: 25-34 minutes Medications reviewed and adjusted accordingly: Yes Anticipated discharge: Home with Homehealth Within: Other - Inpatient Certification Based on my medical assessment, after consideration of the patient's comorbidities, presenting symptoms, or acuity I expect that the services needed warrant INPATIENT care.: Yes I certify that my determination is in accordance with my understanding of Medicare's requirements for reasonable and necessary INPATIENT services [42 CFR 412.3e].: Yes Medical Necessity: Significant Comorbidiites Make Outpatient Treatment Too Risky, Need Close Monitoring Due to Risk of Patient Decompensation, Need For IV Fluids, Need For Continuous Telemetry Monitoring, Need for Nebulizer Therapy and Monitoring of Response, Need for IV Antibiotics, Risk of Complication if Not Cared For in Hospital, Risk of Diagnosis Which Will Require Inpatient Eval/Care/Monitoring Post Hospital Care: D/C Substation Operator Documentation - Plan Summary Plan Summary: D/C Pierce catheter. Obtain U/A. Continue on current medication management.
[2018-09-06 14:49] LABS: APPEARANCE,URINE CLEAR; BILIRUBIN,URINE NEGATIVE (NEGATIVE); COLOR,URINE YELLOW; GLUCOSE, URINE NEGATIVE (NEGATIVE); KETONES,URINE NEGATIVE (NEGATIVE); LEUKOCYTE ESTERASE,URINE TRACE (NEGATIVE); NITRITE,URINE NEGATIVE (NEGATIVE); PROTEIN,URINE NEGATIVE (NEGATIVE); URINE SPECIFIC GRAVITY 1.012; UROBILINOGEN,URINE NEGATIVE mg/dL (<2.0)
[2018-09-06] MEDS: TAMSULOSIN HCL 0.4 MG CAP.SR.24H PO SCH (17:05)
--- NOTE | 2018-09-06 19:20 | PDOC CONSULTATION ---
Consultation Consult Date: 08/31/18 Attending physician:: ARTEMIO KAMINSKI Consult reason:: Acute on chronic respiratory failure History of Present Illness Admission Date/PCP: 08/30/18 23:25 ARTEMIO KAMINSKI MD History of Present Illness: ADÁN CHEUNG is a 52 year old male,Well known to [facility] for acute respiratory failure chronic respiratory failure hypoxic and hypercapnic uses oxygen at home but continues to smoke presented to the emergency room after EMS brought him from the field intubated is currently intubated sedated in the ICU Past Medical History Cardiac Medical History: Reports: Hyperlipidema, Hypertension Denies: Coronary Artery Disease, Myocardial Infarction Pulmonary Medical History: Reports: Asthma, Bronchitis, Chronic Obstructive Pulmonary Disease (COPD), Pneumonia Denies: Tuberculosis Neurological Medical History: Denies: Multiple Sclerosis, Seizures Endocrine Medical History: Reports: Diabetes Mellitus Type 2 GI Medical History: Denies: Cirrhosis, Crohn's Disease, Ulcerative Colitis Musculoskeltal Medical History: Denies: Arthritis Psychiatric Medical History: Reports: Depression Traumatic Medical History: Denies: Traumatic Brain Injury Hematology: Denies: Anemia Infectious Medical History: Denies: Hepatitis B, Hepatitis C, HIV Past Surgical History Past Surgical History: Reports: Cardiac Catheterization, Cholecystectomy, O rthopedic Surgery - R foot, Tonsillectomy Social History Information Source: [facility] Records Smoking Status: Current Some Day Smoker Cigarettes Packs Per Day: 1 Number of Years Smokin Passive smoke exposure as: Both Frequency of Alcohol Use: None Hx Recreational Drug Use: No Drugs: None Hx Prescription Drug Abuse: No Family History Family History: COPD, Hypertension Parental Family History Reviewed: Yes Children Family History Reviewed: Yes Sibling(s) Family History Reviewed.: Yes Medication/Allergy Home Medications: Albuterol Sulfate [Proair HFA Inhalation Aerosol 8.5 gm MDI] 2 puff IH Q4HP PRN 08/31/18 Aspirin [Adult Low Dose Aspirin EC] 81 mg PO DAILY 08/31/18 Atorvastatin Calcium [Lipitor 80 mg Tablet] 80 mg PO QHS 08/31/18 Cetirizine HCl [Zyrtec 10 mg Tablet] 10 mg PO DAILY 08/31/18 Diltiazem HCl [Cardizem Cd 120 mg Capsule] 120 mg PO DAILY 08/31/18 Fluticasone Propionate [Flonase Nasal [place] 50 Mcg/[place] 16 gm] 1 spray NASL BIDP PRN 08/31/18 Fluticasone/Vilanterol [Breo Ellipta 100-25 Mcg INH] 1 puff IH DAILY 08/31/18 Gabapentin [Neurontin 100 mg Capsule] 100 mg PO Q8 08/31/18 Insulin Aspart [Novolog Flexpen] 4 units SQ MEALS 08/31/18 Insulin Glargine,Hum.rec.anlog [Lantus Insulin 100 Unit/1 ml 10 ml] 36 units SQ Q12 08/31/18 Ipratropium/Albuterol Sulfate [Combivent Respimat 4 gm Mdi] 1 puff IH QIDP PRN 08/31/18 Tamsulosin HCl [Flomax 0.4 mg Cap.sr] 0.4 mg PO QPM 08/31/18 Allergies/Adverse Reactions: amoxicillin [Amoxicillin] Adverse Reaction (Verified 08/30/18 22:27) Hives Iodinated Contrast- Oral and IV Dye [IV Dye, Iodine Containing] Adverse Reaction (Verified 08/30/18 22:27) Hives Penicillins Adverse Reaction (Verified 08/30/18 22:27) Hives Apricots Adverse Reaction (Mild, Uncoded 08/30/18 22:27) Hives Review of Systems ROS unobtainable: Due to endotracheal tube Physical Exam Vital Signs: Temp Pulse Resp BP Pulse Ox 97.9 F 49 L 18 129/74 H 100 08/31/18 08:00 08/31/18 08:00 08/31/18 08:00 08/31/18 08:00 08/31/18 08:00 Intake & Output 08/30/18 08/31/18 09/01/18 06:59 06:59 06:59 Intake Total 100 100 Balance 100 100 Weight 104.4 kg General appearance: PRESENT: no acute distress, disheveled, morbidly obese. ABSENT: cooperative Head exam: PRESENT: atraumatic, normocephalic Eye exam: PRESENT: conjunctiva pale. ABSENT: nystagmus Mouth exam: PRESENT: dry mucosa, neck supple, tongue midline, other - ET tube Neck exam: ABSENT: carotid bruit, full ROM, JVD, lymphadenopathy, meningismus, tenderness, thyromegaly, tracheal deviation, tracheostomy, other Respiratory exam: PRESENT: decreased breath sounds, prolonged expiratory phas, rales, rhonchi, unlabored, wheezes. ABSENT: retraction Cardiovascular exam: PRESENT: RRR, +S1, +S2 Pulses: PRESENT: normal radial pulses GI/Abdominal exam: PRESENT: soft. ABSENT: tenderness Gentrourinary exam: PRESENT: indwelling catheter Extremities exam: ABSENT: clubbing, full ROM, joint swelling, pedal edema Musculoskeletal exam: ABSENT: ambulatory, deformity, dislocation Neurological exam: ABSENT: awake Skin exam: PRESENT: dry, warm Results Laboratory Results: 08/31/18 03:41 08/31/18 03:41 08/30/18 08/30/18 08/30/18 21:26 21:26 21:26 WBC 11.6 H RBC 4.30 L Hgb 13.5 Hct 40.4 MCV 94 MCH 31.3 MCHC 33.4 RDW 14.2 H Plt Count 222 Seg Neutrophils % 59.1 Lymphocytes % 34.2 Monocytes % 4.1 Eosinophils % 1.8 Basophils % 0.8 Absolute Neutrophils 6.8 Absolute Lymphocytes 4.0 Absolute Monocytes 0.5 Absolute Eosinophils 0.2 Absolute Basophils 0.1 Carbonic Acid HCO3/H2CO3 Ratio ABG pH ABG pCO2 ABG pO2 ABG HCO3 ABG O2 Saturation ABG Base Excess FiO2 Sodium 140.9 Potassium 4.4 Chloride 98 Carbon Dioxide 35 H Anion Gap 8 BUN 22 H Creatinine 0.83 Est GFR ( Amer) > 60 Est GFR (Non-Af Amer) > 60 Glucose 273 H Calcium 9.1 Phosphorus Magnesium Total Bilirubin 0.4 AST 18 ALT 23 Alkaline Phosphatase 91 Ammonia Total Protein 6.7 Albumin 4.2 Triglycerides Cholesterol LDL Cholesterol Direct VLDL Cholesterol HDL Cholesterol Amylase Lipase TSH Free T4 Urine Color YELLOW Urine Appearance CLEAR Urine pH 6.0 Ur Specific [place] 1.010 Urine Protein 100 H Urine Glucose (UA) 50 H Urine Ketones NEGATIVE Urine Blood NEGATIVE Urine Nitrite NEGATIVE Ur Leukocyte Esterase NEGATIVE Urine WBC (Auto) 1 Urine RBC (Auto) 0 08/30/18 08/30/18 08/30/18 21:26 21:26 22:07 WBC RBC Hgb Hct MCV MCH MCHC RDW Plt Count Seg Neutrophils % Lymphocytes % Monocytes % Eosinophils % Basophils % Absolute Neutrophils Absolute Lymphocytes Absolute Monocytes Absolute Eosinophils Absolute Basophils Carbonic Acid 3.02 H HCO3/H2CO3 Ratio 11:1 ABG pH 7.15 L* ABG pCO2 100.4 H* ABG pO2 498.2 H ABG HCO3 33.8 H ABG O2 Saturation 99.8 H ABG Base Excess 1.4 FiO2 100% Sodium Potassium Chloride Carbon Dioxide Anion Gap BUN Creatinine Est GFR ( Amer) Est GFR (Non-Af Amer) Glucose Calcium Phosphorus 4.7 H Magnesium 2.9 H Total Bilirubin AST ALT Alkaline Phosphatase Ammonia Total Protein Albumin Triglycerides Cholesterol LDL Cholesterol Direct VLDL Cholesterol HDL Cholesterol Amylase 64 Lipase 23.1 TSH 3.47 Free T4 0.99 Urine Color Urine Appearance Urine pH Ur Specific [place] Urine Protein Urine Glucose (UA) Urine Ketones Urine Blood Urine Nitrite Ur Leukocyte Esterase Urine WBC (Auto) Urine RBC (Auto) 08/31/18 08/31/18 08/31/18 02:00 03:41 03:41 WBC RBC Hgb Hct MCV MCH MCHC RDW Plt Count Seg Neutrophils % Lymphocytes % Monocytes % Eosinophils % Basophils % Absolute Neutrophils Absolute Lymphocytes Absolute Monocytes Absolute Eosinophils Absolute Basophils Carbonic Acid 1.70 H HCO3/H2CO3 Ratio 17:1 ABG pH 7.35 ABG pCO2 56.5 H ABG pO2 237.5 H ABG HCO3 30.3 H ABG O2 Saturation 99.5 H ABG Base Excess 3.3 FiO2 80% Sodium 139.9 Potassium 4.9 Chloride 100 Carbon Dioxide 31 H Anion Gap 9 BUN 29 H Creatinine 0.91 Est GFR ( Amer) > 60 Est GFR (Non-Af Amer) > 60 Glucose 337 H Calcium 8.8 Phosphorus Magnesium Total Bilirubin 0.5 AST 16 L ALT 16 L Alkaline Phosphatase 75 Ammonia 9.8 Total Protein 6.2 L Albumin 3.7 Triglycerides 153 H Cholesterol 145.64 LDL Cholesterol Direct 72 VLDL Cholesterol 30.6 HDL Cholesterol 49 Amylase Lipase TSH Free T4 Urine Color Urine Appearance Urine pH Ur Specific [place] Urine Protein Urine Glucose (UA) Urine Ketones Urine Blood Urine Nitrite Ur Leukocyte Esterase Urine WBC (Auto) Urine RBC (Auto) 08/31/18 03:41 WBC 8.0 RBC 3.93 L Hgb 12.2 L Hct 36.3 L MCV 92 MCH 31.1 MCHC 33.6 RDW 14.1 H Plt Count 144 L Seg Neutrophils % 91.4 H Lymphocytes % 6.5 L Monocytes % 1.9 L Eosinophils % 0.1 Basophils % 0.1 Absolute Neutrophils 7.3 Absolute Lymphocytes 0.5 Absolute Monocytes 0.2 Absolute Eosinophils 0.0 Absolute Basophils 0.0 Carbonic Acid HCO3/H2CO3 Ratio ABG pH ABG pCO2 ABG pO2 ABG HCO3 ABG O2 Saturation ABG Base Excess FiO2 Sodium Potassium Chloride Carbon Dioxide Anion Gap BUN Creatinine Est GFR ( Amer) Est GFR (Non-Af Amer) Glucose Calcium Phosphorus Magnesium Total Bilirubin AST ALT Alkaline Phosphatase Ammonia Total Protein Albumin Triglycerides Cholesterol LDL Cholesterol Direct VLDL Cholesterol HDL Cholesterol Amylase Lipase TSH Free T4 Urine Color Urine Appearance Urine pH Ur Specific [place] Urine Protein Urine Glucose (UA) Urine Ketones Urine Blood Urine Nitrite Ur Leukocyte Esterase Urine WBC (Auto) Urine RBC (Auto) 08/30/18 08/30/18 08/31/18 21:26 21:26 03:41 Creatine Kinase 60 82 CK-MB (CK-2) 3.65 Troponin I < 0.012 08/31/18 03:41 Creatine Kinase CK-MB (CK-2) 2.64 Troponin I 0.019 Impressions: Chest X-Ray 08/31/18 06:00 IMPRESSION: No significant change in the appearance of the chest. Assessment & Plan - Diagnosis (1) Acute and chronic respiratory failure with hypercapnia Is this a current diagnosis for this admission?: Yes Plan: Maintain adequate ventilation and oxygenation (2) COPD exacerbation Is this a current diagnosis for this admission?: Yes Plan: Generic Name Dose Route Start Last Admin Trade Name Freq PRN Reason Stop Dose Admin Albuterol/Ipratropium 3 ml 08/31/18 08:00 08/31/18 08:40 Duoneb 3 Ml Ampul NEB 09/30/18 07:59 3 ml [id number] CARMELLA (3) Hypertension Qualifiers: Hypertension type: essential hypertension Qualified Code(s): I10 - Essential (primary) hypertension Is this a current diagnosis for this admission?: Yes Plan: Stable (4) Obesity, Class II, BMI 35-39.9 Is this a current diagnosis for this admission?: Yes Plan: Nutritional consult consider bariatric surgery once stable (5) Sleep apnea syndrome Qualifiers: Sleep apnea type: unspecified type Qualified Code(s): G47.30 - Sleep apnea, unspecified Is this a current diagnosis for this admission?: Yes Plan: Scheduled for nocturnal polysomnogram (6) Tobacco abuse Is this a current diagnosis for this admission?: Yes Plan: Stop smoking transdermal nicotine - Time Total Critical Time (Minutes): 60
--- NOTE | 2018-09-06 19:24 | PDOC PROGRESS REPORT ---
Subjective Progress Note for:: 09/01/18 Subjective:: I&S Reason For Visit: ACUTE HYPERCAPNIC RESPIRATORY FAILURE Physical Exam Vital Signs: Temp Pulse Resp BP Pulse Ox 98.4 F 61 18 96/61 L 97 09/01/18 08:00 09/01/18 08:37 09/01/18 08:37 09/01/18 08:00 09/01/18 08:37 Intake & Output 08/31/18 09/01/18 09/02/18 06:59 06:59 06:59 Intake Total 100 1765 80 Output Total 1290 125 Balance 100 475 -45 Weight 104.4 kg 106.7 kg General appearance: PRESENT: no acute distress, cooperative, disheveled Head exam: PRESENT: atraumatic, normocephalic Eye exam: ABSENT: conjunctiva pale, nystagmus Mouth exam: PRESENT: dry mucosa, neck supple, tongue midline, other - ET tube Neck exam: ABSENT: carotid bruit, JVD, lymphadenopathy, thyromegaly, tracheal deviation, tracheostomy Respiratory exam: PRESENT: decreased breath sounds, prolonged expiratory phas, rales, rhonchi, unlabored, wheezes. ABSENT: retraction, stridor Cardiovascular exam: PRESENT: RRR, +S1, +S2 Pulses: PRESENT: normal radial pulses GI/Abdominal exam: ABSENT: tenderness Gentrourinary exam: PRESENT: indwelling catheter Extremities exam: ABSENT: calf tenderness, clubbing, joint swelling, pedal edema Musculoskeletal exam: ABSENT: ambulatory, deformity, dislocation Neurological exam: ABSENT: awake Skin exam: PRESENT: dry, warm Results Laboratory Results: 09/01/18 03:49 09/01/18 03:49 09/01/18 09/01/18 09/01/18 03:49 03:49 07:25 WBC 8.9 RBC 3.93 L Hgb 12.3 L Hct 36.0 L MCV 91 MCH 31.2 MCHC 34.1 RDW 14.0 Plt Count 125 L Seg Neutrophils % 70.6 Lymphocytes % 19.9 Monocytes % 7.8 Eosinophils % 0.7 Basophils % 1.0 Absolute Neutrophils 6.3 Absolute Lymphocytes 1.8 Absolute Monocytes 0.7 Absolute Eosinophils 0.1 Absolute Basophils 0.1 Carbonic Acid 1.07 HCO3/H2CO3 Ratio 22:1 ABG pH 7.45 ABG pCO2 35.7 ABG pO2 76.0 L ABG HCO3 24.5 H ABG O2 Saturation 95.9 ABG Base Excess 0.8 FiO2 45% Sodium 140.5 Potassium 3.7 Chloride 103 Carbon Dioxide 31 H Anion Gap 7 BUN 29 H Creatinine 0.92 Est GFR ( Amer) > 60 Est GFR (Non-Af Amer) > 60 Glucose 168 H Calcium 8.3 L Magnesium 2.0 08/30/18 08/30/18 08/31/18 21:26 21:26 03:41 Creatine Kinase 60 82 CK-MB (CK-2) 3.65 Troponin I < 0.012 08/31/18 08/31/18 08/31/18 03:41 10:20 10:20 Creatine Kinase 83 CK-MB (CK-2) 2.64 1.72 Troponin I 0.019 < 0.012 08/31/18 08/31/18 08/31/18 13:54 13:54 19:50 Creatine Kinase 72 67 CK-MB (CK-2) 2.06 Troponin I < 0.012 08/31/18 19:50 Creatine Kinase CK-MB (CK-2) 2.17 Troponin I < 0.012 Impressions: Chest X-Ray 09/01/18 06:00 IMPRESSION: No change. Assessment & Plan - Diagnosis (1) Acute and chronic respiratory failure with hypercapnia Is this a current diagnosis for this admission?: Yes Plan: Maintain adequate ventilation and oxygenation (2) COPD exacerbation Is this a current diagnosis for this admission?: Yes Plan: Generic Name Dose Route Start Last Admin Trade Name Freq PRN Reason Stop Dose Admin Albuterol/Ipratropium 3 ml 08/31/18 08:00 08/31/18 08:40 Duoneb 3 Ml Ampul NEB 09/30/18 07:59 3 ml [id number] CARMELLA (3) Hypertension Qualifiers: Hypertension type: essential hypertension Qualified Code(s): I10 - Essential (primary) hypertension Is this a current diagnosis for this admission?: Yes Plan: Stable (4) Obesity, Class II, BMI 35-39.9 Is this a current diagnosis for this admission?: Yes Plan: Nutritional consult consider bariatric surgery once stable (5) Sleep apnea syndrome Qualifiers: Sleep apnea type: unspecified type Qualified Code(s): G47.30 - Sleep apnea, unspecified Plan: Scheduled for nocturnal polysomnogram (6) Tobacco abuse Is this a current diagnosis for this admission?: Yes Plan: Stop smoking transdermal nicotine - Time Total Critical Time (Minutes): 50
--- NOTE | 2018-09-06 19:32 | PDOC PROGRESS REPORT ---
Subjective Progress Note for:: 09/02/18 Subjective:: I&S reduce rr try to get near baseline Reason For Visit: ACUTE HYPERCAPNIC RESPIRATORY FAILURE Physical Exam Vital Signs: Temp Pulse Resp BP Pulse Ox 99.5 F 71 18 93/58 L 94 09/02/18 08:00 09/02/18 08:00 09/02/18 08:00 09/02/18 08:00 09/02/18 08:00 Intake & Output 09/01/18 09/02/18 09/03/18 06:59 06:59 06:59 Intake Total 1765 2414 72 Output Total 1290 1750 75 Balance 475 664 -3 Weight 106.7 kg 105.7 kg General appearance: PRESENT: no acute distress, disheveled, morbidly obese. ABSENT: cooperative Head exam: PRESENT: atraumatic, normocephalic Eye exam: PRESENT: conjunctiva pale. ABSENT: EOMI Mouth exam: PRESENT: dry mucosa, neck supple, tongue midline, other - ET tube Neck exam: ABSENT: carotid bruit, JVD, lymphadenopathy, thyromegaly, tracheal deviation, tracheostomy Respiratory exam: PRESENT: decreased breath sounds, rales, rhonchi, unlabored, wheezes. ABSENT: retraction, stridor Cardiovascular exam: PRESENT: RRR, rubs, +S2 Pulses: PRESENT: normal radial pulses GI/Abdominal exam: PRESENT: soft Gentrourinary exam: PRESENT: indwelling catheter Extremities exam: ABSENT: calf tenderness, joint swelling Musculoskeletal exam: ABSENT: ambulatory, deformity, dislocation Neurological exam: ABSENT: awake Skin exam: PRESENT: dry, warm Results Laboratory Results: 09/02/18 03:58 09/02/18 03:58 09/02/18 09/02/18 09/02/18 03:58 03:58 04:30 WBC 6.3 RBC 3.69 L Hgb 11.5 L Hct 33.7 L MCV 91 MCH 31.0 MCHC 34.0 RDW 14.3 H Plt Count 122 L Seg Neutrophils % 73.9 Lymphocytes % 16.7 Monocytes % 6.7 Eosinophils % 2.0 Basophils % 0.7 Absolute Neutrophils 4.7 Absolute Lymphocytes 1.1 Absolute Monocytes 0.4 Absolute Eosinophils 0.1 Absolute Basophils 0.0 Carbonic Acid 1.19 HCO3/H2CO3 Ratio 22:1 ABG pH 7.44 ABG pCO2 39.5 ABG pO2 74.1 L ABG HCO3 26.3 H ABG O2 Saturation 95.4 ABG Base Excess 2.1 FiO2 45% Sodium 140.5 Potassium 3.6 Chloride 108 H Carbon Dioxide 25 Anion Gap 8 BUN 21 H Creatinine 0.77 Est GFR ( Amer) > 60 Est GFR (Non-Af Amer) > 60 Glucose 154 H Calcium 8.0 L Magnesium 1.9 08/30/18 08/30/18 08/31/18 21:26 21:26 03:41 Creatine Kinase 60 82 CK-MB (CK-2) 3.65 Troponin I < 0.012 08/31/18 08/31/18 08/31/18 03:41 10:20 10:20 Creatine Kinase 83 CK-MB (CK-2) 2.64 1.72 Troponin I 0.019 < 0.012 08/31/18 08/31/18 08/31/18 13:54 13:54 19:50 Creatine Kinase 72 67 CK-MB (CK-2) 2.06 Troponin I < 0.012 08/31/18 09/01/18 09/01/18 19:50 17:45 17:45 Creatine Kinase 63 CK-MB (CK-2) 2.17 1.97 Troponin I < 0.012 < 0.012 Impressions: Chest X-Ray 09/02/18 06:00 IMPRESSION: No significant change. Assessment & Plan - Diagnosis (1) Acute and chronic respiratory failure with hypercapnia Is this a current diagnosis for this admission?: Yes Plan: Maintain adequate ventilation and oxygenation (2) COPD exacerbation Is this a current diagnosis for this admission?: Yes Plan: Generic Name Dose Route Start Last Admin Trade Name Freq PRN Reason Stop Dose Admin Albuterol/Ipratropium 3 ml 08/31/18 08:00 08/31/18 08:40 Duoneb 3 Ml Ampul NEB 09/30/18 07:59 3 ml [id number] [facility] (3) Hypertension Qualifiers: Hypertension type: essential hypertension Qualified Code(s): I10 - Essential (primary) hypertension Is this a current diagnosis for this admission?: Yes Plan: Stable (4) Obesity, Class II, BMI 35-39.9 Is this a current diagnosis for this admission?: Yes Plan: Nutritional consult consider bariatric surgery once stable (5) Sleep apnea syndrome Qualifiers: Sleep apnea type: unspecified type Qualified Code(s): G47.30 - Sleep apnea, unspecified Is this a current diagnosis for this admission?: Yes Plan: Scheduled for nocturnal polysomnogram (6) Tobacco abuse Is this a current diagnosis for this admission?: Yes Plan: Stop smoking transdermal nicotine - Time Total Critical Time (Minutes): 45
--- NOTE | 2018-09-06 19:37 | PDOC PROGRESS REPORT ---
Subjective Progress Note for:: 09/03/18 Subjective:: I&S reduce rr try to get near baseline Reason For Visit: ACUTE HYPERCAPNIC RESPIRATORY FAILURE Physical Exam Vital Signs: Temp Pulse Resp BP Pulse Ox 98.6 F 76 20 134/64 H 96 09/03/18 10:00 09/03/18 10:00 09/03/18 10:00 09/03/18 10:00 09/03/18 10:00 Intake & Output 09/02/18 09/03/18 09/04/18 06:59 06:59 06:59 Intake Total 2414 2497 200 Output Total 1750 1815 235 Balance 664 682 -35 Weight 105.7 kg 106.8 kg General appearance: PRESENT: no acute distress, disheveled, morbidly obese. ABSENT: cooperative Head exam: PRESENT: atraumatic, normocephalic Eye exam: PRESENT: conjunctiva pale, EOMI. ABSENT: nystagmus Mouth exam: PRESENT: dry mucosa, neck supple, tongue midline, other - ET Neck exam: ABSENT: carotid bruit, JVD, lymphadenopathy, thyromegaly, tracheal deviation, tracheostomy Respiratory exam: PRESENT: decreased breath sounds, prolonged expiratory phas, rhonchi, unlabored. ABSENT: retraction, stridor, wheezes Cardiovascular exam: PRESENT: RRR, +S1, +S2 Pulses: PRESENT: normal radial pulses GI/Abdominal exam: PRESENT: soft. ABSENT: tenderness Gentrourinary exam: PRESENT: indwelling catheter Extremities exam: ABSENT: calf tenderness, clubbing, joint swelling, pedal edema Musculoskeletal exam: ABSENT: ambulatory, deformity, dislocation Neurological exam: PRESENT: altered, awake Skin exam: PRESENT: dry, warm Results Laboratory Results: 09/03/18 10:55 09/03/18 04:04 09/03/18 09/03/18 09/03/18 04:04 04:04 04:45 WBC RBC Hgb Hct MCV MCH MCHC RDW Plt Count Seg Neutrophils % Not Reportable Lymphocytes % Not Reportable Monocytes % Not Reportable Eosinophils % Not Reportable Basophils % Not Reportable Absolute Neutrophils Not Reportable Absolute Lymphocytes Not Reportable Absolute Monocytes Not Reportable Absolute Eosinophils Not Reportable Absolute Basophils Not Reportable Carbonic Acid 1.41 H HCO3/H2CO3 Ratio 19:1 ABG pH 7.38 ABG pCO2 46.7 H ABG pO2 120.8 H ABG HCO3 27.1 H ABG O2 Saturation 98.3 H ABG Base Excess 1.6 FiO2 40% Sodium 142.1 Potassium 4.1 Chloride 108 H Carbon Dioxide 29 Anion Gap 5 BUN 15 Creatinine 0.70 Est GFR ( Amer) > 60 Est GFR (Non-Af Amer) > 60 Glucose 116 H Calcium 8.2 L Magnesium 2.0 09/03/18 10:55 WBC 6.3 RBC 4.34 L Hgb 13.6 D Hct 40.0 MCV 92 MCH 31.4 MCHC 34.1 RDW 14.1 H Plt Count 126 L Seg Neutrophils % 70.9 Lymphocytes % 18.8 Monocytes % 6.2 Eosinophils % 3.4 Basophils % 0.7 Absolute Neutrophils 4.4 Absolute Lymphocytes 1.2 Absolute Monocytes 0.4 Absolute Eosinophils 0.2 Absolute Basophils 0.0 Carbonic Acid HCO3/H2CO3 Ratio ABG pH ABG pCO2 ABG pO2 ABG HCO3 ABG O2 Saturation ABG Base Excess FiO2 Sodium Potassium Chloride Carbon Dioxide Anion Gap BUN Creatinine Est GFR ( Amer) Est GFR (Non-Af Amer) Glucose Calcium Magnesium 08/30/18 21:26 Catheterized Urine Urine Culture - Final NO GROWTH 2 DAYS 08/30/18 08/30/18 08/31/18 21:26 21:26 03:41 Creatine Kinase 60 82 CK-MB (CK-2) 3.65 Troponin I < 0.012 08/31/18 08/31/18 08/31/18 03:41 10:20 10:20 Creatine Kinase 83 CK-MB (CK-2) 2.64 1.72 Troponin I 0.019 < 0.012 08/31/18 08/31/18 08/31/18 13:54 13:54 19:50 Creatine Kinase 72 67 CK-MB (CK-2) 2.06 Troponin I < 0.012 08/31/18 09/01/18 09/01/18 19:50 17:45 17:45 Creatine Kinase 63 CK-MB (CK-2) 2.17 1.97 Troponin I < 0.012 < 0.012 Impressions: Chest X-Ray 09/03/18 06:00 IMPRESSION: No significant change. Assessment & Plan - Diagnosis (1) Acute and chronic respiratory failure with hypercapnia Is this a current diagnosis for this admission?: Yes Plan: fio2,rr,min vol suggest sucessful extubation (2) COPD exacerbation Is this a current diagnosis for this admission?: Yes Plan: Generic Name Dose Route Start Last Admin Trade Name Selam PRN Reason Stop Dose Admin Albuterol/Ipratropium 3 ml 08/31/18 08:00 08/31/18 08:40 Duoneb 3 Ml Ampul NEB 09/30/18 07:59 3 ml [id number] CARMELLA (3) Hypertension Qualifiers: Hypertension type: essential hypertension Qualified Code(s): I10 - Essential (primary) hypertension Is this a current diagnosis for this admission?: Yes Plan: Stable (4) Obesity, Class II, BMI 35-39.9 Is this a current diagnosis for this admission?: Yes Plan: Nutritional consult consider bariatric surgery once stable (5) Sleep apnea syndrome Qualifiers: Sleep apnea type: unspecified type Qualified Code(s): G47.30 - Sleep apnea, unspecified Is this a current diagnosis for this admission?: Yes Plan: Scheduled for nocturnal polysomnogram (6) Tobacco abuse Is this a current diagnosis for this admission?: Yes Plan: Stop smoking transdermal nicotine - Time Total Critical Time (Minutes): 60
--- NOTE | 2018-09-06 19:45 | PDOC PROGRESS REPORT ---
Subjective Progress Note for:: 09/04/18 Subjective:: extubated stable Reason For Visit: ACUTE HYPERCAPNIC RESPIRATORY FAILURE Physical Exam Vital Signs: Temp Pulse Resp BP Pulse Ox 99.0 F 63 18 133/72 H 96 09/04/18 08:00 09/04/18 08:47 09/04/18 08:47 09/04/18 08:00 09/04/18 08:47 Intake & Output 09/03/18 09/04/18 09/05/18 06:59 06:59 06:59 Intake Total 2497 920 Output Total 4297 9171 275 Balance 842 -9648 -719 Weight 106.8 kg 104.9 kg General appearance: PRESENT: no acute distress, cooperative, disheveled, morbidly obese Head exam: PRESENT: atraumatic, normocephalic Eye exam: PRESENT: conjunctiva pale, EOMI. ABSENT: nystagmus Mouth exam: PRESENT: dry mucosa, neck supple, tongue midline Neck exam: ABSENT: carotid bruit, JVD, lymphadenopathy, thyromegaly, tracheal deviation, tracheostomy Respiratory exam: PRESENT: decreased breath sounds, prolonged expiratory phas, rales, rhonchi, unlabored. ABSENT: retraction, stridor Cardiovascular exam: PRESENT: RRR, +S1, +S2 Pulses: PRESENT: normal radial pulses GI/Abdominal exam: PRESENT: soft Gentrourinary exam: PRESENT: indwelling catheter Extremities exam: ABSENT: clubbing, joint swelling, pedal edema Musculoskeletal exam: ABSENT: deformity, dislocation Neurological exam: PRESENT: awake Psychiatric exam: PRESENT: flat affect Skin exam: PRESENT: dry, warm Results Laboratory Results: 09/04/18 03:40 09/04/18 03:40 09/03/18 09/03/18 09/04/18 04:04 10:55 03:40 WBC 6.3 4.8 RBC 4.34 L 4.01 L Hgb 13.6 D 12.5 L Hct 40.0 36.5 L MCV 92 91 MCH 31.4 31.3 MCHC 34.1 34.3 RDW 14.1 H 13.9 Plt Count 126 L 139 L Seg Neutrophils % 70.9 64.3 Lymphocytes % 18.8 21.1 Monocytes % 6.2 8.0 Eosinophils % 3.4 5.9 Basophils % 0.7 0.7 Absolute Neutrophils 4.4 3.1 Absolute Lymphocytes 1.2 1.0 Absolute Monocytes 0.4 0.4 Absolute Eosinophils 0.2 0.3 Absolute Basophils 0.0 0.0 Carbonic Acid HCO3/H2CO3 Ratio ABG pH ABG pCO2 ABG pO2 ABG HCO3 ABG O2 Saturation ABG Base Excess FiO2 Sodium Potassium Chloride Carbon Dioxide Anion Gap BUN Creatinine Est GFR ( Amer) Est GFR (Non-Af Amer) Glucose Calcium Magnesium Total Bilirubin AST ALT Alkaline Phosphatase Total Protein Albumin 09/04/18 09/04/18 03:40 05:30 WBC RBC Hgb Hct MCV MCH MCHC RDW Plt Count Seg Neutrophils % Lymphocytes % Monocytes % Eosinophils % Basophils % Absolute Neutrophils Absolute Lymphocytes Absolute Monocytes Absolute Eosinophils Absolute Basophils Carbonic Acid 1.64 H HCO3/H2CO3 Ratio 19:1 ABG pH 7.39 ABG pCO2 54.4 H ABG pO2 95.9 ABG HCO3 32.2 H ABG O2 Saturation 97.1 ABG Base Excess 5.9 FiO2 40% Sodium 142.4 Potassium 3.8 Chloride 106 Carbon Dioxide 31 H Anion Gap 5 BUN 13 Creatinine 0.68 Est GFR ( Amer) > 60 Est GFR (Non-Af Amer) > 60 Glucose 147 H Calcium 8.7 Magnesium 1.9 Total Bilirubin 0.5 AST 14 L ALT 18 L Alkaline Phosphatase 65 Total Protein 5.7 L Albumin 3.2 L 08/31/18 18:25 Tracheal Aspirate Gram Stain - Final 08/30/18 22:18 Blood Blood Culture - Final Strep Parasanguis Micrococcus Species 08/30/18 08/30/18 08/31/18 21:26 21:26 03:41 Creatine Kinase 60 82 CK-MB (CK-2) 3.65 Troponin I < 0.012 08/31/18 08/31/18 08/31/18 03:41 10:20 10:20 Creatine Kinase 83 CK-MB (CK-2) 2.64 1.72 Troponin I 0.019 < 0.012 08/31/18 08/31/18 08/31/18 13:54 13:54 19:50 Creatine Kinase 72 67 CK-MB (CK-2) 2.06 Troponin I < 0.012 08/31/18 09/01/18 09/01/18 19:50 17:45 17:45 Creatine Kinase 63 CK-MB (CK-2) 2.17 1.97 Troponin I < 0.012 < 0.012 Impressions: Chest X-Ray 09/04/18 06:00 IMPRESSION: Interval extubation. Assessment & Plan - Diagnosis (1) Acute and chronic respiratory failure with hypercapnia Is this a current diagnosis for this admission?: Yes Plan: stable, sucessful extubation (2) COPD exacerbation Is this a current diagnosis for this admission?: Yes Plan: Generic Name Dose Route Start Last Admin Trade Name Freq PRN Reason Stop Dose Admin Albuterol/Ipratropium 3 ml 08/31/18 08:00 08/31/18 08:40 Duoneb 3 Ml Ampul NEB 09/30/18 07:59 3 ml [id number] CARMELLA (3) Hypertension Qualifiers: Hypertension type: essential hypertension Qualified Code(s): I10 - Ess ential (primary) hypertension Is this a current diagnosis for this admission?: Yes Plan: Stable (4) Obesity, Class II, BMI 35-39.9 Is this a current diagnosis for this admission?: Yes Plan: Nutritional consult consider bariatric surgery once stable (5) Sleep apnea syndrome Qualifiers: Sleep apnea type: unspecified type Qualified Code(s): G47.30 - Sleep apnea, unspecified Is this a current diagnosis for this admission?: Yes Plan: Scheduled for nocturnal polysomnogram (6) Tobacco abuse Is this a current diagnosis for this admission?: Yes Plan: Stop smoking transdermal nicotine - Time Total Critical Time (Minutes): 45
--- NOTE | 2018-09-06 19:48 | PDOC PROGRESS REPORT ---
Subjective Progress Note for:: 09/05/18 Subjective:: stable Reason For Visit: ACUTE HYPERCAPNIC RESPIRATORY FAILURE Physical Exam Vital Signs: Temp Pulse Resp BP Pulse Ox 98.1 F 72 19 110/61 100 09/05/18 12:00 09/05/18 14:00 09/05/18 13:53 09/05/18 12:00 09/05/18 13:53 Intake & Output 09/04/18 09/05/18 09/06/18 06:59 06:59 06:59 Intake Total 920 1617 Output Total 2545 1575 360 Balance -1625 42 -360 Weight 104.9 kg 105.6 kg General appearance: PRESENT: no acute distress, cooperative, disheveled, morbidly obese Head exam: PRESENT: atraumatic, normocephalic Eye exam: PRESENT: conjunctiva pale, EOMI. ABSENT: nystagmus Mouth exam: PRESENT: dry mucosa, neck supple, tongue midline Neck exam: ABSENT: carotid bruit, JVD, lymphadenopathy, thyromegaly, tracheal deviation, tracheostomy Respiratory exam: PRESENT: decreased breath sounds, prolonged expiratory phas, rhonchi, unlabored. ABSENT: rales, retraction, stridor Cardiovascular exam: PRESENT: RRR, +S1, +S2 Pulses: PRESENT: normal radial pulses GI/Abdominal exam: PRESENT: soft. ABSENT: tenderness Gentrourinary exam: PRESENT: indwelling catheter Extremities exam: ABSENT: calf tenderness, clubbing, joint swelling, pedal edema Musculoskeletal exam: ABSENT: deformity, dislocation Neurological exam: PRESENT: awake Psychiatric exam: PRESENT: appropriate affect Skin exam: PRESENT: dry, warm Results Laboratory Results: 09/05/18 03:39 09/05/18 03:39 09/05/18 09/05/18 03:39 03:39 WBC 4.5 RBC 4.18 L Hgb 12.8 L Hct 37.7 L MCV 90 MCH 30.7 MCHC 34.0 RDW 14.2 H Plt Count 149 L Seg Neutrophils % 59.8 Lymphocytes % 25.6 Monocytes % 9.1 Eosinophils % 4.6 Basophils % 0.9 Absolute Neutrophils 2.7 Absolute Lymphocytes 1.1 Absolute Monocytes 0.4 Absolute Eosinophils 0.2 Absolute Basophils 0.0 Sodium 141.8 Potassium 4.1 Chloride 103 Carbon Dioxide 32 H Anion Gap 7 BUN 17 Creatinine 0.76 Est GFR ( Amer) > 60 Est GFR (Non-Af Amer) > 60 Glucose 205 H Calcium 8.8 08/30/18 21:26 Blood Blood Culture - Final NO GROWTH IN 5 DAYS 08/31/18 18:25 Tracheal Aspirate Gram Stain - Final 08/31/18 18:25 Tracheal Aspirate Sputum Culture - Final Enterobacter Cloacae Reduced Normal Ann 08/30/18 08/30/18 08/31/18 21:26 21:26 03:41 Creatine Kinase 60 82 CK-MB (CK-2) 3.65 Troponin I < 0.012 08/31/18 08/31/18 08/31/18 03:41 10:20 10:20 Creatine Kinase 83 CK-MB (CK-2) 2.64 1.72 Troponin I 0.019 < 0.012 08/31/18 08/31/18 08/31/18 13:54 13:54 19:50 Creatine Kinase 72 67 CK-MB (CK-2) 2.06 Troponin I < 0.012 08/31/18 09/01/18 09/01/18 19:50 17:45 17:45 Creatine Kinase 63 CK-MB (CK-2) 2.17 1.97 Troponin I < 0.012 < 0.012 Impressions: Chest X-Ray 09/04/18 06:00 IMPRESSION: Interval extubation. Assessment & Plan - Diagnosis (1) Acute and chronic respiratory failure with hypercapnia Is this a current diagnosis for this admission?: Yes Plan: stable, sucessful extubation (2) COPD exacerbation Is this a current diagnosis for this admission?: Yes Plan: improving (3) Hypertension Qualifiers: Hypertension type: essential hypertension Qualified Code(s): I10 - Essential (primary) hypertension Is this a current diagnosis for this admission?: Yes Plan: Stable (4) Obesity, Class II, BMI 35-39.9 Is this a current diagnosis for this admission?: Yes Plan: Nutritional consult consider bariatric surgery once stable (5) Sleep apnea syndrome Qualifiers: Sleep apnea type: unspecified type Qualified Code(s): G47.30 - Sleep apnea, unspecified Is this a current diagnosis for this admission?: Yes Plan: Scheduled for nocturnal polysomnogram (6) Tobacco abuse Is this a current diagnosis for this admission?: Yes Plan: Stop smoking transdermal nicotine - Time Total Critical Time (Minutes): 40
[2018-09-06] MEDS: ATORVASTATIN CALCIUM 80 MG TABLET PO SCH (21:46)
[2018-09-07] MEDS: GABAPENTIN 100 MG CAPSULE PO SCH ×3 (05:30→21:17)
[2018-09-07] MEDS: BENZOCAINE/MENTHOL SORE THROAT LOZENGE BUCCAL PRN (05:35)
[2018-09-07 06:39] LABS: ANION GAP 9 (5-19); BLOOD UREA NITROGEN 24 mg/dL (7-20); CARBON DIOXIDE 30 mmol/L (22-30); CHLORIDE 100 mmol/L (98-107); GLUCOSE 136 mg/dL (75-110); POTASSIUM 4.3 mmol/L (3.6-5.0); SODIUM 138.8 mmol/L (137-145)
[2018-09-07] MEDS: INSULIN LISPRO 100 UNIT/ML 3 ML VIAL SUBCUT SCH ×4 (08:30→23:39)
[2018-09-07] MEDS: LEVOFLOXACIN 500 MG/D5W RTU 500 MG/100 ML RTUPB IV SCH (08:30)
[2018-09-07] MEDS: IPRATROPIUM/ALBUTEROL 0.5-2.5 MG/3 ML AMPUL NEB SCH ×3 (08:47→19:53)
[2018-09-07] MEDS: FAMOTIDINE INJ/PF 20 MG/2 ML SDV IV SCH ×2 (09:54→21:17)
[2018-09-07] MEDS: INSULIN GLARGINE,HUM.REC.ANLOG 300 UNIT/3 ML INSULN.PEN SUBCUT SCH ×2 (09:55→23:40)
[2018-09-07] MEDS: ENOXAPARIN SODIUM INJ 40 MG/0.4 ML DISP.SYRIN SUBCUT SCH (09:55)
[2018-09-07] MEDS: DILTIAZEM HCL 120 MG CAP.SR.24H PO SCH (09:55)
[2018-09-07] MEDS: CETIRIZINE 10 MG TABLET PO SCH (09:55)
[2018-09-07] MEDS: ASPIRIN 81 MG TABLET, ENT COATED PO SCH (09:55)
--- NOTE | 2018-09-07 13:36 | PDOC PROGRESS REPORT ---
Subjective Progress Note for:: 09/07/18 Subjective:: Patient is currently doing fair Denied any chest pain denied any shortness of the breath Patient is complaining of a loose stool Patient's C. difficile is negative Reason For Visit: ACUTE HYPERCAPNIC RESPIRATORY FAILURE Physical Exam Vital Signs: Temp Pulse Resp BP Pulse Ox 99.2 F 92 16 106/68 94 09/07/18 07:55 09/07/18 08:45 09/07/18 08:45 09/07/18 07:55 09/07/18 08:45 Intake & Output 09/06/18 09/07/18 09/08/18 06:59 06:59 06:59 Intake Total 872 1037 100 Output Total 1885 1575 Balance -1013 -538 100 Weight 102.7 kg 102.8 kg General appearance: PRESENT: no acute distress, well-developed, well-nourished Head exam: PRESENT: atraumatic, normocephalic Eye exam: PRESENT: conjunctiva pink, EOMI, PERRLA. ABSENT: scleral icterus Ear exam: PRESENT: normal external ear exam Mouth exam: PRESENT: moist, tongue midline Neck exam: PRESENT: full ROM. ABSENT: carotid bruit, JVD, lymphadenopathy, thyromegaly Respiratory exam: PRESENT: clear to auscultation [place] Cardiovascular exam: PRESENT: RRR. ABSENT: diastolic murmur, rubs, systolic murmur Vascular exam: PRESENT: normal capillary refill GI/Abdominal exam: PRESENT: normal bowel sounds, soft. ABSENT: distended, guarding, mass, organolmegaly, rebound, tenderness Rectal exam: PRESENT: deferred Neurological exam: PRESENT: alert, awake, oriented to person, oriented to place, oriented to time, oriented to situation, CN II-XII grossly intact. ABSENT: motor sensory deficit Psychiatric exam: PRESENT: appropriate affect, normal mood. ABSENT: homicidal ideation, suicidal ideation Skin exam: PRESENT: dry, intact, warm. ABSENT: cyanosis, rash Results Laboratory Results: 09/05/18 03:39 09/07/18 05:04 09/06/18 09/07/18 14:25 05:04 Sodium 138.8 Potassium 4.3 Chloride 100 Carbon Dioxide 30 Anion Gap 9 BUN 24 H Creatinine 0.72 Est GFR ( Amer) > 60 Est GFR (Non-Af Amer) > 60 Glucose 136 H Calcium 9.0 Urine Color YELLOW Urine Appearance CLEAR Urine pH 6.0 Ur Specific [place] 1.012 Urine Protein NEGATIVE Urine Glucose (UA) NEGATIVE Urine Ketones NEGATIVE Urine Blood MODERATE H Urine Nitrite NEGATIVE Ur Leukocyte Esterase TRACE H Urine WBC (Auto) 4 Urine RBC (Auto) 9 08/30/18 08/30/18 08/31/18 21:26 21:26 03:41 Creatine Kinase 60 82 CK-MB (CK-2) 3.65 Troponin I < 0.012 08/31/18 08/31/18 08/31/18 03:41 10:20 10:20 Creatine Kinase 83 CK-MB (CK-2) 2.64 1.72 Troponin I 0.019 < 0.012 08/31/18 08/31/18 08/31/18 13:54 13:54 19:50 Creatine Kinase 72 67 CK-MB (CK-2) 2.06 Troponin I < 0.012 08/31/18 09/01/18 09/01/18 19:50 17:45 17:45 Creatine Kinase 63 CK-MB (CK-2) 2.17 1.97 Troponin I < 0.012 < 0.012 Impressions: Chest X-Ray 09/04/18 06:00 IMPRESSION: Interval extubation. Assessment & Plan - Diagnosis (1) Acute and chronic respiratory failure with hypercapnia Is this a current diagnosis for this admission?: Yes Plan: Currently all resolved (2) COPD with acute exacerbation Is this a current diagnosis for this admission?: Yes Plan: And is on nebulizer treatments (3) Diabetes mellitus type 2 in obese Is this a current diagnosis for this admission?: Yes Plan: Sliding scale (4) Hypertension Qualifiers: Hypertension type: essential hypertension Qualified Code(s): I10 - Essential (primary) hypertension Is this a current diagnosis for this admission?: Yes (5) Noncompliance Is this a current diagnosis for this admission?: Yes (6) Tobacco abuse Is this a current diagnosis for this admission?: Yes - Time Time Spent with patient: 15-24 minutes Medications reviewed and adjusted accordingly: Yes Anticipated discharge: Home Within: Other - Plan Summary Plan Summary: Continues to current medication
[2018-09-07] MEDS: TAMSULOSIN HCL 0.4 MG CAP.SR.24H PO SCH (17:00)
[2018-09-07] MEDS: ATORVASTATIN CALCIUM 80 MG TABLET PO SCH (21:17)
[2018-09-08] MEDS: GABAPENTIN 100 MG CAPSULE PO SCH ×3 (05:19→21:51)
[2018-09-08 06:52] LABS: ABSOLUTE BASOPHILS # (AUTO) 0.1 10^3/uL (0.0-0.2); ABSOLUTE EOSINOPHILS # (AUTO) 0.2 10^3/uL (0.0-0.6); ABSOLUTE LYMPHOCYTES (AUTO) 1.4 10^3/uL (0.5-4.7); ABSOLUTE MONOCYTES (AUTO) 0.6 10^3/uL (0.1-1.4); ABSOLUTE NEUT (AUTO) 6.8 10^3/uL (1.7-8.2); BASOPHILS % (AUTO) 0.6 % (0-2); EOSINOPHILS % (AUTO) 2.3 % (0-6); HEMATOCRIT 40.1 % (37.9-51.0); HEMOGLOBIN 13.7 g/dL (13.5-17.0); LYMPHOCYTES % (AUTO) 15.2 % (13-45); MEAN CORPUSCULAR HEMOGLOBIN 30.9 pg (27.0-33.4); MEAN CORPUSCULAR HGB CONC 34.2 g/dL (32.0-36.0); MEAN CORPUSCULAR VOLUME 90 fl (80-97); MONOCYTES % (AUTO) 6.3 % (3-13); PLATELET COUNT 201 10^3/uL (150-450); RED BLOOD COUNT 4.44 10^6/uL (4.35-5.55); RED CELL DISTRIBUTION WIDTH 13.9 % (11.5-14.0); SEGMENTED NEUTROPHILS % (AUTO) 75.6 % (42-78); TOTAL CELLS COUNTED % (AUTO) 100 %
[2018-09-08 07:07] LABS: ARTERIAL BLOOD BASE EXCESS 1.3 mmol/L; ARTERIAL BLOOD H2CO3 1.46 mmol/L (1.05-1.35); ARTERIAL BLOOD HCO3 27.3 mmol/L (20-24); ARTERIAL BLOOD O2 SATURATION 93.5 % (94-98); ARTERIAL BLOOD PCO2 48.6 mmHg (35-45); ARTERIAL BLOOD PH 7.37 (7.35-7.45); ARTERIAL BLOOD PO2 70.2 mmHg (80-100); ARTERIAL BLOOD TOTAL CO2 28.8 mmol/L (23-27)
[2018-09-08 07:09] LABS: ARTERIAL BLOOD FIO2 2.5L
[2018-09-08 07:23] LABS: ANION GAP 9 (5-19); BLOOD UREA NITROGEN 26 mg/dL (7-20); CALCIUM 10.1 mg/dL (8.4-10.2); CARBON DIOXIDE 31 mmol/L (22-30); CHLORIDE 99 mmol/L (98-107); GLUCOSE 159 mg/dL (75-110); POTASSIUM 4.8 mmol/L (3.6-5.0); SODIUM 138.6 mmol/L (137-145)
[2018-09-08] MEDS: IPRATROPIUM/ALBUTEROL 0.5-2.5 MG/3 ML AMPUL NEB SCH ×3 (08:17→21:09)
[2018-09-08] MEDS: INSULIN LISPRO 100 UNIT/ML 3 ML VIAL SUBCUT SCH ×4 (08:18→21:52)
[2018-09-08] MEDS: ENOXAPARIN SODIUM INJ 40 MG/0.4 ML DISP.SYRIN SUBCUT SCH (10:30)
[2018-09-08] MEDS: FAMOTIDINE INJ/PF 20 MG/2 ML SDV IV SCH ×2 (10:30→21:51)
[2018-09-08] MEDS: DILTIAZEM HCL 120 MG CAP.SR.24H PO SCH (10:30)
[2018-09-08] MEDS: INSULIN GLARGINE,HUM.REC.ANLOG 300 UNIT/3 ML INSULN.PEN SUBCUT SCH ×2 (10:30→21:51)
[2018-09-08] MEDS: CETIRIZINE 10 MG TABLET PO SCH (10:30)
[2018-09-08] MEDS: ASPIRIN 81 MG TABLET, ENT COATED PO SCH (10:31)
[2018-09-08] MEDS: LOPERAMIDE HCL 2 MG CAPSULE PO PRN ×2 (10:38→21:59)
--- NOTE | 2018-09-08 11:23 | PDOC PROGRESS REPORT ---
Subjective Progress Note for:: 09/08/18 Subjective:: Patient is currently doing fair Still have a loose stool Feel dizzy when he stands up Denied any chest pain to than any shortness of the breath Reason For Visit: ACUTE HYPERCAPNIC RESPIRATORY FAILURE Physical Exam Vital Signs: Temp Pulse Resp BP Pulse Ox 97.8 F 90 15 114/72 96 09/08/18 08:05 09/08/18 08:17 09/08/18 08:17 09/08/18 08:05 09/08/18 08:17 Intake & Output 09/07/18 09/08/18 09/09/18 06:59 06:59 06:59 Intake Total 1037 1273 Output Total 1575 100 Balance -538 1173 Weight 102.8 kg General appearance: PRESENT: no acute distress, well-developed, well-nourished Head exam: PRESENT: atraumatic, normocephalic Eye exam: PRESENT: conjunctiva pink, EOMI, PERRLA. ABSENT: scleral icterus Ear exam: PRESENT: normal external ear exam Mouth exam: PRESENT: moist, tongue midline Neck exam: PRESENT: full ROM. ABSENT: carotid bruit, JVD, lymphadenopathy, thyromegaly Respiratory exam: PRESENT: clear to auscultation [place] Cardiovascular exam: PRESENT: RRR. ABSENT: diastolic murmur, rubs, systolic murmur Vascular exam: PRESENT: normal capillary refill GI/Abdominal exam: PRESENT: normal bowel sounds, soft. ABSENT: distended, guarding, mass, organolmegaly, rebound, tenderness Rectal exam: PRESENT: deferred Neurological exam: PRESENT: alert, awake, oriented to person, oriented to place, oriented to time, oriented to situation, CN II-XII grossly intact. ABSENT: motor sensory deficit Psychiatric exam: PRESENT: appropriate affect, normal mood. ABSENT: homicidal ideation, suicidal ideation Skin exam: PRESENT: dry, intact, warm. ABSENT: cyanosis, rash Results Laboratory Results: 09/08/18 05:48 09/08/18 05:48 09/08/18 09/08/18 09/08/18 05:48 05:48 06:50 WBC 9.0 RBC 4.44 Hgb 13.7 Hct 40.1 MCV 90 MCH 30.9 MCHC 34.2 RDW 13.9 Plt Count 201 Seg Neutrophils % 75.6 Lymphocytes % 15.2 Monocytes % 6.3 Eosinophils % 2.3 Basophils % 0.6 Absolute Neutrophils 6.8 Absolute Lymphocytes 1.4 Absolute Monocytes 0.6 Absolute Eosinophils 0.2 Absolute Basophils 0.1 Carbonic Acid 1.46 H HCO3/H2CO3 Ratio 18:1 ABG pH 7.37 ABG pCO2 48.6 H ABG pO2 70.2 L ABG HCO3 27.3 H ABG O2 Saturation 93.5 L ABG Base Excess 1.3 FiO2 2.5L Sodium 138.6 Potassium 4.8 Chloride 99 Carbon Dioxide 31 H Anion Gap 9 BUN 26 H Creatinine 0.88 Est GFR ( Amer) > 60 Est GFR (Non-Af Amer) > 60 Glucose 159 H Calcium 10.1 08/30/18 08/30/18 08/31/18 21:26 21:26 03:41 Creatine Kinase 60 82 CK-MB (CK-2) 3.65 Troponin I < 0.012 08/31/18 08/31/18 08/31/18 03:41 10:20 10:20 Creatine Kinase 83 CK-MB (CK-2) 2.64 1.72 Troponin I 0.019 < 0.012 08/31/18 08/31/18 08/31/18 13:54 13:54 19:50 Creatine Kinase 72 67 CK-MB (CK-2) 2.06 Troponin I < 0.012 08/31/18 09/01/18 09/01/18 19:50 17:45 17:45 Creatine Kinase 63 CK-MB (CK-2) 2.17 1.97 Troponin I < 0.012 < 0.012 Impressions: Chest X-Ray 09/04/18 06:00 IMPRESSION: Interval extubation. Assessment & Plan - Diagnosis (1) Acute and chronic respiratory failure with hypercapnia Is this a current diagnosis for this admission?: Yes Plan: Currently all resolved (2) COPD with acute exacerbation Is this a current diagnosis for this admission?: Yes Plan: And is on nebulizer treatments (3) Diabetes mellitus type 2 in obese Is this a current diagnosis for this admission?: Yes Plan: Sliding scale (4) Hypertension Qualifiers: Hypertension type: essential hypertension Qualified Code(s): I10 - Essential (primary) hypertension Is this a current diagnosis for this admission?: Yes (5) Noncompliance Is this a current diagnosis for this admission?: Yes (6) Tobacco abuse Is this a current diagnosis for this admission?: Yes (7) Dizziness Is this a current diagnosis for this admission?: Yes Plan: Check the orthostatic blood pressure Try to cut down the Cardizem (8) Loose stools Is this a current diagnosis for this admission?: Yes Plan: Patient's C. difficile is negative We will try the probiotics and Imodium - Time Time Spent with patient: 15-24 minutes Medications reviewed and adjusted accordingly: Yes Anticipated discharge: Other Within: Other - Plan Summary Plan Summary: Will check the blood work In the morning Patients remain afebrile We will hold the antibiotic due to the diarrhea Checked orthostatic blood pressures
[2018-09-08] MEDS: TAMSULOSIN HCL 0.4 MG CAP.SR.24H PO SCH (17:04)
[2018-09-08] MEDS: ATORVASTATIN CALCIUM 80 MG TABLET PO SCH (21:51)
[2018-09-09] MEDS: GABAPENTIN 100 MG CAPSULE PO SCH ×3 (05:15→21:26)
[2018-09-09] MEDS: LOPERAMIDE HCL 2 MG CAPSULE PO PRN (05:18)
[2018-09-09 05:40] LABS: ABSOLUTE BASOPHILS # (AUTO) 0.1 10^3/uL (0.0-0.2); ABSOLUTE EOSINOPHILS # (AUTO) 0.2 10^3/uL (0.0-0.6); ABSOLUTE LYMPHOCYTES (AUTO) 1.8 10^3/uL (0.5-4.7); ABSOLUTE MONOCYTES (AUTO) 0.5 10^3/uL (0.1-1.4); BASOPHILS % (AUTO) 0.8 % (0-2); EOSINOPHILS % (AUTO) 2.6 % (0-6); HEMATOCRIT 34.5 % (37.9-51.0); HEMOGLOBIN 11.8 g/dL (13.5-17.0); LYMPHOCYTES % (AUTO) 24.2 % (13-45); MEAN CORPUSCULAR HEMOGLOBIN 31.1 pg (27.0-33.4); MEAN CORPUSCULAR HGB CONC 34.3 g/dL (32.0-36.0); MEAN CORPUSCULAR VOLUME 91 fl (80-97); MONOCYTES % (AUTO) 6.3 % (3-13); PLATELET COUNT 176 10^3/uL (150-450); RED BLOOD COUNT 3.81 10^6/uL (4.35-5.55); SEGMENTED NEUTROPHILS % (AUTO) 66.1 % (42-78); TOTAL CELLS COUNTED % (AUTO) 100 %; WHITE BLOOD COUNT 7.5 10^3/uL (4.0-10.5)
[2018-09-09 06:05] LABS: ANION GAP 5 (5-19); BLOOD UREA NITROGEN 30 mg/dL (7-20); CALCIUM 9.4 mg/dL (8.4-10.2); CARBON DIOXIDE 29 mmol/L (22-30); CHLORIDE 104 mmol/L (98-107); GLUCOSE 198 mg/dL (75-110); POTASSIUM 4.3 mmol/L (3.6-5.0); SODIUM 137.9 mmol/L (137-145)
[2018-09-09] MEDS ORDERED: MAG HYDROX/AL HYDROX/SIMETH SUSP 30 ML UDCUP PO PRN (08:13)
[2018-09-09] MEDS: INSULIN LISPRO 100 UNIT/ML 3 ML VIAL SUBCUT SCH ×4 (08:21→21:27)
[2018-09-09] MEDS: IPRATROPIUM/ALBUTEROL 0.5-2.5 MG/3 ML AMPUL NEB SCH ×3 (08:42→21:08)
--- NOTE | 2018-09-09 09:20 | PDOC PROGRESS REPORT ---
Subjective Progress Note for:: 09/09/18 Subjective:: Patient is still feeling loose stool Denied any chest pain to than any shortness of the breath Patient still feels dizzy but actually getting better Patient orthostatic is positive this morning Reason For Visit: ACUTE HYPERCAPNIC RESPIRATORY FAILURE Physical Exam Vital Signs: Temp Pulse Resp BP Pulse Ox 98.9 F 80 18 109/55 L 94 09/09/18 07:30 09/09/18 08:43 09/09/18 08:43 09/09/18 07:30 09/09/18 08:43 Intake & Output 09/08/18 09/09/18 09/10/18 06:59 06:59 06:59 Intake Total 1273 948 Output Total 100 650 Balance 1173 298 General appearance: PRESENT: no acute distress, well-developed, well-nourished Head exam: PRESENT: atraumatic, normocephalic Eye exam: PRESENT: conjunctiva pink, EOMI, PERRLA. ABSENT: scleral icterus Ear exam: PRESENT: normal external ear exam Mouth exam: PRESENT: moist, tongue midline Neck exam: PRESENT: full ROM. ABSENT: carotid bruit, JVD, lymphadenopathy, thyromegaly Respiratory exam: PRESENT: clear to auscultation [place] Cardiovascular exam: PRESENT: RRR. ABSENT: diastolic murmur, rubs, systolic murmur Vascular exam: PRESENT: normal capillary refill GI/Abdominal exam: PRESENT: normal bowel sounds, soft. ABSENT: distended, guarding, mass, organolmegaly, rebound, tenderness Rectal exam: PRESENT: deferred Musculoskeletal exam: PRESENT: ambulatory Neurological exam: PRESENT: alert, awake, oriented to person, oriented to place, oriented to time, oriented to situation, CN II-XII grossly intact. ABSENT: motor sensory deficit Psychiatric exam: PRESENT: appropriate affect, normal mood. ABSENT: homicidal ideation, suicidal ideation Skin exam: PRESENT: dry, intact, warm. ABSENT: cyanosis, rash Results Laboratory Results: 09/09/18 05:10 09/09/18 05:10 09/09/18 09/09/18 05:10 05:10 WBC 7.5 RBC 3.81 L Hgb 11.8 L Hct 34.5 L MCV 91 MCH 31.1 MCHC 34.3 RDW 14.0 Plt Count 176 Seg Neutrophils % 66.1 Lymphocytes % 24.2 Monocytes % 6.3 Eosinophils % 2.6 Basophils % 0.8 Absolute Neutrophils 5.0 Absolute Lymphocytes 1.8 Absolute Monocytes 0.5 Absolute Eosinophils 0.2 Absolute Basophils 0.1 Sodium 137.9 Potassium 4.3 Chloride 104 Carbon Dioxide 29 Anion Gap 5 BUN 30 H Creatinine 0.89 Est GFR ( Amer) > 60 Est GFR (Non-Af Amer) > 60 Glucose 198 H Calcium 9.4 09/06/18 14:25 Clean Catch Midstream Urine Culture - Final Enterococcus Faecalis(Group D) Staph Coagulase Negative 08/30/18 08/30/18 08/31/18 21:26 21:26 03:41 Creatine Kinase 60 82 CK-MB (CK-2) 3.65 Troponin I < 0.012 08/31/18 08/31/18 08/31/18 03:41 10:20 10:20 Creatine Kinase 83 CK-MB (CK-2) 2.64 1.72 Troponin I 0.019 < 0.012 08/31/18 08/31/18 08/31/18 13:54 13:54 19:50 Creatine Kinase 72 67 CK-MB (CK-2) 2.06 Troponin I < 0.012 08/31/18 09/01/18 09/01/18 19:50 17:45 17:45 Creatine Kinase 63 CK-MB (CK-2) 2.17 1.97 Troponin I < 0.012 < 0.012 Impressions: Chest X-Ray 09/04/18 06:00 IMPRESSION: Interval extubation. Assessment & Plan - Diagnosis (1) Acute and chronic respiratory failure with hypercapnia Is this a current diagnosis for this admission?: Yes Plan: Currently all resolved (2) COPD with acute exacerbation Is this a current diagnosis for this admission?: Yes Plan: And is on nebulizer treatments (3) Diabetes mellitus type 2 in obese Is this a current diagnosis for this admission?: Yes Plan: Sliding scale (4) Hypertension Qualifiers: Hypertension type: essential hypertension Qualified Code(s): I10 - Essential (primary) hypertension Is this a current diagnosis for this admission?: Yes (5) Noncompliance Is this a current diagnosis for this admission?: Yes (6) Tobacco abuse Is this a current diagnosis for this admission?: Yes (7) Dizziness Is this a current diagnosis for this admission?: Yes (8) Loose stools Is this a current diagnosis for this admission?: Yes Plan: Will consider given the cholestyramine - Time Time Spent with patient: 15-24 minutes Medications reviewed and adjusted accordingly: Yes Anticipated discharge: Home Within: Other - Plan Summary Plan Summary: Continues to current medication
[2018-09-09] MEDS: DILTIAZEM HCL 120 MG CAP.SR.24H PO SCH (11:37)
[2018-09-09] MEDS: LACTOBACILLUS ACIDOPHILUS 250 MG TAB PO SCH ×2 (11:37→17:20)
[2018-09-09] MEDS: CHOLESTYRAMINE/ASPARTAME 4 GM PACKET PO SCH ×2 (11:37→17:20)
[2018-09-09] MEDS: LANSOPRAZOLE 15 MG TAB.RAP.DR PO SCH ×2 (11:38→17:20)
[2018-09-09] MEDS: ENOXAPARIN SODIUM INJ 40 MG/0.4 ML DISP.SYRIN SUBCUT SCH (11:38)
[2018-09-09] MEDS: INSULIN GLARGINE,HUM.REC.ANLOG 300 UNIT/3 ML INSULN.PEN SUBCUT SCH ×2 (11:38→21:26)
[2018-09-09] MEDS: ASPIRIN 81 MG TABLET, ENT COATED PO SCH (11:38)
[2018-09-09] MEDS: CETIRIZINE 10 MG TABLET PO SCH (11:38)
[2018-09-09] MEDS: TAMSULOSIN HCL 0.4 MG CAP.SR.24H PO SCH (17:20)
[2018-09-09] MEDS: ATORVASTATIN CALCIUM 80 MG TABLET PO SCH (21:26)
[2018-09-10 06:28] LABS: BLOOD UREA NITROGEN 23 mg/dL (7-20); GLUCOSE 153 mg/dL (75-110); POTASSIUM 4.2 mmol/L (3.6-5.0)
[2018-09-10 06:34] LABS: CARBON DIOXIDE 31 mmol/L (22-30); CHLORIDE 106 mmol/L (98-107); SODIUM 140.5 mmol/L (137-145)
[2018-09-10] MEDS: GABAPENTIN 100 MG CAPSULE PO SCH ×3 (06:37→21:29)
[2018-09-10 06:40] LABS: ANION GAP 4 (5-19)
[2018-09-10] MEDS: INSULIN LISPRO 100 UNIT/ML 3 ML VIAL SUBCUT SCH ×4 (07:32→21:29)
[2018-09-10] MEDS: IPRATROPIUM/ALBUTEROL 0.5-2.5 MG/3 ML AMPUL NEB SCH ×3 (08:00→20:31)
--- NOTE | 2018-09-10 08:56 | PDOC PROGRESS REPORT ---
Subjective Progress Note for:: 09/10/18 Subjective:: Patient is currently doing much better Patient's diarrhea is pretty much getting improved with the Questran powder Patient's denied any chest pain to than any shortness of the breath Patient is denied any dizziness today Reason For Visit: ACUTE HYPERCAPNIC RESPIRATORY FAILURE Physical Exam Vital Signs: Temp Pulse Resp BP Pulse Ox 98.6 F 66 16 107/48 L 99 09/10/18 03:22 09/10/18 07:00 09/10/18 03:22 09/10/18 03:22 09/10/18 03:22 Intake & Output 09/09/18 09/10/18 09/11/18 06:59 06:59 06:59 Intake Total 948 1405 Output Total 650 400 Balance 298 1005 Weight 106.1 kg General appearance: PRESENT: no acute distress, well-developed, well-nourished Head exam: PRESENT: atraumatic, normocephalic Eye exam: PRESENT: conjunctiva pink, EOMI, PERRLA. ABSENT: scleral icterus Ear exam: PRESENT: normal external ear exam Mouth exam: PRESENT: moist, tongue midline Neck exam: PRESENT: full ROM. ABSENT: carotid bruit, JVD, lymphadenopathy, thyromegaly Respiratory exam: PRESENT: clear to auscultation allyson Cardiovascular exam: PRESENT: RRR. ABSENT: diastolic murmur, rubs, systolic murmur Vascular exam: PRESENT: normal capillary refill GI/Abdominal exam: PRESENT: normal bowel sounds, soft. ABSENT: distended, guarding, mass, organolmegaly, rebound, tenderness Rectal exam: PRESENT: deferred Musculoskeletal exam: PRESENT: ambulatory Neurological exam: PRESENT: alert, awake, oriented to person, oriented to place, oriented to time, oriented to situation, CN II-XII grossly intact. ABSENT: motor sensory deficit Psychiatric exam: PRESENT: appropriate affect, normal mood. ABSENT: homicidal ideation, suicidal ideation Skin exam: PRESENT: dry, intact, warm. ABSENT: cyanosis, rash Results Laboratory Results: 09/09/18 05:10 09/10/18 05:28 09/10/18 05:28 Sodium 140.5 Potassium 4.2 Chloride 106 Carbon Dioxide 31 H Anion Gap 4 L BUN 23 H Creatinine 0.81 Est GFR ( Amer) > 60 Est GFR (Non-Af Amer) > 60 Glucose 153 H Calcium 9.0 09/06/18 14:25 Clean Catch Midstream Urine Culture - Final Enterococcus Faecalis(Group D) Staph Coagulase Negative 08/30/18 08/30/18 08/31/18 21:26 21:26 03:41 Creatine Kinase 60 82 CK-MB (CK-2) 3.65 Troponin I < 0.012 08/31/18 08/31/18 08/31/18 03:41 10:20 10:20 Creatine Kinase 83 CK-MB (CK-2) 2.64 1.72 Troponin I 0.019 < 0.012 08/31/18 08/31/18 08/31/18 13:54 13:54 19:50 Creatine Kinase 72 67 CK-MB (CK-2) 2.06 Troponin I < 0.012 08/31/18 09/01/18 09/01/18 19:50 17:45 17:45 Creatine Kinase 63 CK-MB (CK-2) 2.17 1.97 Troponin I < 0.012 < 0.012 Impressions: Chest X-Ray 09/04/18 06:00 IMPRESSION: Interval extubation. Assessment & Plan - Diagnosis (1) Acute and chronic respiratory failure with hypercapnia Is this a current diagnosis for this admission?: Yes Plan: Clear all doing well will repeat the ABG before the discharge (2) COPD with acute exacerbation Is this a current diagnosis for this admission?: Yes Plan: And is on nebulizer treatments (3) Diabetes mellitus type 2 in obese Is this a current diagnosis for this admission?: Yes Plan: Sliding scale (4) Hypertension Qualifiers: Hypertension type: essential hypertension Qualified Code(s): I10 - Essential (primary) hypertension Is this a current diagnosis for this admission?: Yes (5) Noncompliance Is this a current diagnosis for this admission?: Yes (6) Tobacco abuse Is this a current diagnosis for this admission?: Yes (7) Dizziness Is this a current diagnosis for this admission?: Yes Plan: All improving (8) Loose stools Is this a current diagnosis for this admission?: Yes Plan: Patient's C. difficile is negative - Time Time Spent with patient: 15-24 minutes Medications reviewed and adjusted accordingly: Yes Anticipated discharge: Home with Homehealth Within: Other - Plan Summary Plan Summary: Will discuss with the patient's family potentially going home versus the rehab patient is a very noncompliance patient is pretty much try to become compliance today said that she will follow the advice and he will take the medicines
[2018-09-10 09:10] LABS: ARTERIAL BLOOD BASE EXCESS -1.9 mmol/L; ARTERIAL BLOOD H2CO3 1.62 mmol/L (1.05-1.35); ARTERIAL BLOOD HCO3 25.3 mmol/L (20-24); ARTERIAL BLOOD O2 SATURATION 91.2 % (94-98); ARTERIAL BLOOD PCO2 53.8 mmHg (35-45); ARTERIAL BLOOD PH 7.29 (7.35-7.45); ARTERIAL BLOOD PO2 67.9 mmHg (80-100); ARTERIAL BLOOD TOTAL CO2 26.9 mmol/L (23-27)
[2018-09-10 09:12] LABS: ARTERIAL BLOOD FIO2 3LNC
[2018-09-10] MEDS: LACTOBACILLUS ACIDOPHILUS 250 MG TAB PO SCH ×2 (09:13→17:41)
[2018-09-10] MEDS: INSULIN GLARGINE,HUM.REC.ANLOG 300 UNIT/3 ML INSULN.PEN SUBCUT SCH ×2 (09:13→21:29)
[2018-09-10] MEDS: CETIRIZINE 10 MG TABLET PO SCH (09:13)
[2018-09-10] MEDS: ASPIRIN 81 MG TABLET, ENT COATED PO SCH (09:13)
[2018-09-10] MEDS: CHOLESTYRAMINE/ASPARTAME 4 GM PACKET PO SCH ×2 (09:13→17:43)
[2018-09-10] MEDS: ENOXAPARIN SODIUM INJ 40 MG/0.4 ML DISP.SYRIN SUBCUT SCH (09:13)
[2018-09-10] MEDS: DILTIAZEM HCL 120 MG CAP.SR.24H PO SCH (09:13)
[2018-09-10] MEDS: LANSOPRAZOLE 15 MG TAB.RAP.DR PO SCH ×2 (09:13→17:41)
--- NOTE | 2018-09-10 11:47 | PDOC PROGRESS REPORT ---
Subjective Progress Note for:: 09/10/18 Subjective:: stable sleeping on n/c Reason For Visit: ACUTE HYPERCAPNIC RESPIRATORY FAILURE Physical Exam Vital Signs: Temp Pulse Resp BP Pulse Ox 98.3 F 76 16 109/52 L 92 09/10/18 07:03 09/10/18 08:00 09/10/18 08:00 09/10/18 07:03 09/10/18 08:00 Intake & Output 09/09/18 09/10/18 09/11/18 06:59 06:59 06:59 Intake Total 948 1405 Output Total 650 400 Balance 298 1005 Weight 106.1 kg General appearance: PRESENT: no acute distress, cooperative, hard of hearing, morbidly obese, well-developed, well-nourished Head exam: PRESENT: atraumatic, normocephalic Eye exam: PRESENT: conjunctiva pale, EOMI. ABSENT: nystagmus Mouth exam: PRESENT: dry mucosa, neck supple, tongue midline Neck exam: ABSENT: carotid bruit, JVD, lymphadenopathy, thyromegaly, tracheal deviation, tracheostomy Respiratory exam: PRESENT: decreased breath sounds, prolonged expiratory phas, rales, rhonchi, unlabored. ABSENT: retraction, stridor Cardiovascular exam: PRESENT: RRR, +S1, +S2 Pulses: PRESENT: normal radial pulses GI/Abdominal exam: PRESENT: soft. ABSENT: tenderness Extremities exam: ABSENT: calf tenderness, clubbing, joint swelling Musculoskeletal exam: ABSENT: deformity, dislocation Neurological exam: PRESENT: alert, awake Skin exam: PRESENT: dry, warm Results Laboratory Results: 09/09/18 05:10 09/10/18 05:28 09/10/18 09/10/18 05:28 08:55 Carbonic Acid 1.62 H HCO3/H2CO3 Ratio 15:1 ABG pH 7.29 L ABG pCO2 53.8 H ABG pO2 67.9 L ABG HCO3 25.3 H ABG O2 Saturation 91.2 L ABG Base Excess -1.9 FiO2 3LNC Sodium 140.5 Potassium 4.2 Chloride 106 Carbon Dioxide 31 H Anion Gap 4 L BUN 23 H Creatinine 0.81 Est GFR ( Amer) > 60 Est GFR (Non-Af Amer) > 60 Glucose 153 H Calcium 9.0 09/06/18 14:25 Clean Catch Midstream Urine Culture - Final Enterococcus Faecalis(Group D) Staph Coagulase Negative 08/30/18 08/30/18 08/31/18 21:26 21:26 03:41 Creatine Kinase 60 82 CK-MB (CK-2) 3.65 Troponin I < 0.012 08/31/18 08/31/18 08/31/18 03:41 10:20 10:20 Creatine Kinase 83 CK-MB (CK-2) 2.64 1.72 Troponin I 0.019 < 0.012 08/31/18 08/31/18 08/31/18 13:54 13:54 19:50 Creatine Kinase 72 67 CK-MB (CK-2) 2.06 Troponin I < 0.012 08/31/18 09/01/18 09/01/18 19:50 17:45 17:45 Creatine Kinase 63 CK-MB (CK-2) 2.17 1.97 Troponin I < 0.012 < 0.012 Impressions: Chest X-Ray 09/04/18 06:00 IMPRESSION: Interval extubation. Assessment & Plan - Diagnosis (1) Acute and chronic respiratory failure with hypercapnia Is this a current diagnosis for this admission?: Yes Plan: stable, (2) COPD exacerbation Is this a current diagnosis for this admission?: Yes Plan: improving (3) Hypertension Qualifiers: Hypertension type: essential hypertension Qualified Code(s): I10 - Essential (primary) hypertension Is this a current diagnosis for this admission?: Yes Plan: Stable (4) Obesity, Class II, BMI 35-39.9 Is this a current diagnosis for this admission?: Yes (5) Sleep apnea syndrome Qualifiers: Sleep apnea type: unspecified type Qualified Code(s): G47.30 - Sleep apnea, unspecified Is this a current diagnosis for this admission?: Yes Plan: will need his NIPPV at d/c unfortunately [facility] only does bipap however some NIPPV is better than none (6) Tobacco abuse Is this a current diagnosis for this admission?: Yes Plan: Stop smoking transdermal nicotine
[2018-09-10] MEDS: TAMSULOSIN HCL 0.4 MG CAP.SR.24H PO SCH (17:42)
[2018-09-10] MEDS: ATORVASTATIN CALCIUM 80 MG TABLET PO SCH (21:29)
[2018-09-11] MEDS: GABAPENTIN 100 MG CAPSULE PO SCH ×2 (05:33→14:01)
[2018-09-11] MEDS: INSULIN LISPRO 100 UNIT/ML 3 ML VIAL SUBCUT SCH ×2 (08:07→13:39)
[2018-09-11] MEDS: IPRATROPIUM/ALBUTEROL 0.5-2.5 MG/3 ML AMPUL NEB SCH ×2 (08:27→14:20)
[2018-09-11] MEDS: LACTOBACILLUS ACIDOPHILUS 250 MG TAB PO SCH (09:45)
[2018-09-11] MEDS: LANSOPRAZOLE 15 MG TAB.RAP.DR PO SCH (09:46)
[2018-09-11] MEDS: DILTIAZEM HCL 120 MG CAP.SR.24H PO SCH (09:46)
[2018-09-11] MEDS: ASPIRIN 81 MG TABLET, ENT COATED PO SCH (09:46)
[2018-09-11] MEDS: CETIRIZINE 10 MG TABLET PO SCH (09:46)
[2018-09-11] MEDS: ENOXAPARIN SODIUM INJ 40 MG/0.4 ML DISP.SYRIN SUBCUT SCH (09:48)
[2018-09-11] MEDS: INSULIN GLARGINE,HUM.REC.ANLOG 300 UNIT/3 ML INSULN.PEN SUBCUT SCH (09:49)
[2018-09-11 12:27] VITALS: BP 123/44
--- NOTE | 2018-09-11 12:40 | PDOC TRANSFER SUMMARY ---
General - Admit/Disc Date/PCP Admission Date/Primary Care Provider: 08/30/18 23:25 ARTEMIO KAMINSKI MD Discharge Date: 09/11/18 - Discharge Diagnosis (1) Acute and chronic respiratory failure with hypercapnia Is this a current diagnosis for this admission?: Yes Summary: Currently doing well Use of 3 L oxygen Use of BiPAP at nursing facilities Follow-up with the Dr. Regalado (2) COPD with acute exacerbation Is this a current diagnosis for this admission?: Yes Summary: Continues to DuoNeb nebulizer every 6 daily Continues to current inhaler (3) Diabetes mellitus type 2 in obese Is this a current diagnosis for this admission?: Yes Summary: Continues a sliding scale with [facility] protocol (4) Hypertension Is this a current diagnosis for this admission?: Yes Summary: Stable (5) Noncompliance Is this a current diagnosis for this admission?: Yes (6) Tobacco abuse Is this a current diagnosis for this admission?: Yes (7) Dizziness Is this a current diagnosis for this admission?: Yes Summary: Currently all resolved (8) Loose stools Is this a current diagnosis for this admission?: Yes Summary: Patient's stool C. difficile is negative's currently all resolved - Additional Information Discharge Diet: Cardiac Discharge Activity: Activity As Tolerated Prescriptions: Cholestyramine/Aspartame [Questran Light 4 gm Packet] 4 gm PO DAILY #10 packet Lactobacillus Acidophilus [Bacid 250 mg Tablet] 250 mg PO BID #30 tab Home Medications: Albuterol Sulfate [Proair HFA Inhalation Aerosol 8.5 gm MDI] 2 puff IH Q4HP PRN 08/31/18 Aspirin [Adult Low Dose Aspirin EC] 81 mg PO DAILY 08/31/18 Atorvastatin Calcium [Lipitor 80 mg Tablet] 80 mg PO QHS 08/31/18 Cetirizine HCl [Zyrtec 10 mg Tablet] 10 mg PO DAILY 08/31/18 Diltiazem HCl [Cardizem Cd 120 mg Capsule] 120 mg PO DAILY 08/31/18 Fluticasone Propionate [Flonase Nasal [place] 50 Mcg/[place] 16 gm] 1 spray NASL BIDP PRN 08/31/18 Fluticasone/Vilanterol [Breo Ellipta 100-25 Mcg INH] 1 puff IH DAILY 08/31/18 Gabapentin [Neurontin 100 mg Capsule] 100 mg PO Q8 08/31/18 Insulin Aspart [Novolog Flexpen] 4 units SQ MEALS 08/31/18 Ipratropium/Albuterol Sulfate [Combivent Respimat 4 gm Mdi] 1 puff IH QIDP PRN 08/31/18 Tamsulosin HCl [Flomax 0.4 mg Cap.sr] 0.4 mg PO QPM 08/31/18 Cholestyramine/Aspartame [Questran Light 4 gm Packet] 4 gm PO DAILY #10 packet 09/11/18 Insulin Glargine,Hum.rec.anlog [Lantus Insulin 100 Unit/1 ml 10 ml] 15 units SQ Q12 #0 09/11/18 Lactobacillus Acidophilus [Bacid 250 mg Tablet] 250 mg PO BID #30 tab 09/11/18 History of Present Illness Admission Date/PCP: 08/30/18 23:25 ARTEMIO KAMINSKI MD History of Present Illness: ADÁN CHEUNG is a 52 year old male This is a 52-year-old male very noncompliance history of the chronic respiratory failure history of the oxygen dependent history of the COPD and continues to smoke history of the type 2 diabetes mellitus and hypertension's several hospital admissions due to noncompliance and continues to smoke according to the patient's family patient was complaining some difficulty in breathing and patient recently started smoking again and called the EMS During the EMS visit patient was more respiratory distressed patient was intubated and patient is currently brought in the emergency department and put in the ICU Patient is currently intubated As per getting history from the patient's family brother regarding the patient's was doing okay yesterday but started smoking and noncompliance with the medications Hospital Course Hospital Course: This is a 52-year-old male very noncompliance continues to smoke several hospital admissions not properly using the trilogy at home not using the oxygen at home came to the emergency department the respiratory distressed and patient was intubated and kept in the ICU Patient seen by Dr. Regalado pulmonary patients could have some gram-positive organism start the Levaquin Patient is extubated doing well and transferred to the [facility] Patient also seen by cardiology Dr. Gentile Patient is walking the hallway without any problems Patient was complained for loose stool and the antibiotic was discontinued and a C. difficile was negative Patients remain afebrile Patient's loose stool is all better with the probiotics and Questran powder Patients very noncompliance continues to smoke so many hospital admissions discussed with the family and suggest may be patients get a benefit to the rehab facility We will continue to monitor in the rehab and discussed with Dr. Regalado and suggest the BiPAP per Dr. Regalado Physical Exam Vital Signs: Temp Pulse Resp BP Pulse Ox 98.3 F 78 16 123/44 L 97 09/11/18 11:20 09/11/18 11:20 09/11/18 11:20 09/11/18 11:20 09/11/18 11:20 Intake & Output 09/10/18 09/11/18 09/12/18 06:59 06:59 06:59 Intake Total 1405 2264 625 Output Total 400 1250 250 Balance 1005 1014 375 Weight 106.1 kg 106 kg General appearance: PRESENT: no acute distress, well-developed, well-nourished Head exam: PRESENT: atraumatic, normocephalic Eye exam: PRESENT: conjunctiva pink, EOMI, PERRLA. ABSENT: scleral icterus Ear exam: PRESENT: normal external ear exam Mouth exam: PRESENT: moist, tongue midline Neck exam: ABSENT: carotid bruit, JVD, lymphadenopathy, thyromegaly Respiratory exam: PRESENT: clear to auscultation allyson. ABSENT: rales, rhonchi, wheezes Cardiovascular exam: PRESENT: RRR. ABSENT: diastolic murmur, rubs, systolic murmur Pulses: PRESENT: normal dorsalis pedis pul Vascular exam: PRESENT: normal capillary refill GI/Abdominal exam: PRESENT: normal bowel sounds, soft. ABSENT: distended, guarding, mass, organolmegaly, rebound, tenderness Rectal exam: PRESENT: deferred Extremities exam: PRESENT: full ROM. ABSENT: calf tenderness, clubbing, pedal edema Musculoskeletal exam: PRESENT: ambulatory Neurological exam: PRESENT: alert, awake, oriented to person, oriented to place, oriented to time, oriented to situation, CN II-XII grossly intact. ABSENT: motor sensory deficit Psychiatric exam: PRESENT: appropriate affect, normal mood. ABSENT: homicidal ideation, suicidal ideation Skin exam: PRESENT: dry, intact, warm. ABSENT: cyanosis, rash Results Laboratory Results: 09/09/18 05:10 09/10/18 05:28 08/30/18 08/30/1819 21:26 21:26 03:41 Creatine Kinase 60 82 CK-MB (CK-2) 3.65 Troponin I < 0.012 08/31/18 08/31/18 08/31/18 03:41 10:20 10:20 Creatine Kinase 83 CK-MB (CK-2) 2.64 1.72 Troponin I 0.019 < 0.012 08/31/18 08/31/18 08/31/18 13:54 13:54 19:50 Creatine Kinase 72 67 CK-MB (CK-2) 2.06 Troponin I < 0.012 08/31/18 09/01/18 09/01/18 19:50 17:45 17:45 Creatine Kinase 63 CK-MB (CK-2) 2.17 1.97 Troponin I < 0.012 < 0.012 Impressions: Chest X-Ray 09/04/18 06:00 IMPRESSION: Interval extubation. Transfer Plan - Time Spent with Patient Time spent with patient: Greater than 30 Minutes Qualifiers - * PATIENT BEING DISCHARGED WITH ANY OF THE FOLLOWING DIAGNOSIS: No VTE patient discharged on overlapping Therapy?: Yes Plan Time Spent: Greater than 30 Minutes - Check a CBC and Chem-7 in 1 week Continues to DuoNeb nebulizer every 6 Continues to 3 L oxygen Continues the BiPAP at night Follow with the Dr. Regalado in 1-2 weeks
[2018-09-11] MEDS: CHOLESTYRAMINE/ASPARTAME 4 GM PACKET PO SCH (13:02)
== END 2018-09-11 16:37 | DRG 208 ==
LOC: ER 21:21 → EH 23:25 → ICU 08-31 01:34 → 3S 09-05 14:39
PROVIDERS: ADMIT Internal Medicine; ATTEND Family Medicine
PROC: 5A1945Z Respiratory Ventilation, 24-96 Consecutive Hours (ICD-10-PCS; principal; 2018-08-30)
PROC: 0BH17EZ Insertion of Endotracheal Airway into Trachea, Via Natural or Artificial Opening (ICD-10-PCS; 2018-08-30)
PROC: 3E0F3GC Introduction of Other Therapeutic Substance into Respiratory Tract, Percutaneous Approach (ICD-10-PCS; 2018-08-30)
DX: J96.22 Acute and chronic respiratory failure with hypercapnia (principal); J44.1 Chronic obstructive pulmonary disease with (acute) exacerbation; Z68.41 Body mass index [BMI] 40.0-44.9, adult; Z99.81 Dependence on supplemental oxygen; E11.9 Type 2 diabetes mellitus without complications; I10 Essential (primary) hypertension; E78.5 Hyperlipidemia, unspecified; F32.9 Major depressive disorder, single episode, unspecified; E66.9 Obesity, unspecified; F17.210 Nicotine dependence, cigarettes, uncomplicated; G47.30 Sleep apnea, unspecified; R42 Dizziness and giddiness; R19.5 Other fecal abnormalities; R00.0 Tachycardia, unspecified; Z91.19 Patient's noncompliance with other medical treatment and regimen; Z87.01 Personal history of pneumonia (recurrent); Z83.6 Family history of other diseases of the respiratory system; Z82.49 Family history of ischemic heart disease and other diseases of the circulatory system; Z91.041 Radiographic dye allergy status; Z88.0 Allergy status to penicillin; Z91.018 Allergy to other foods; Z79.82 Long term (current) use of aspirin; Z79.4 Long term (current) use of insulin
CPT/HCPCS: 36415; 51702; 71045; 80048; 80053; 80061; 80307; 81001; 82140; 82150; 82550; 82553; 82803; 82962; 83036; 83690; 83735; 84100; 84439; 84443; 84484; 85025; 85610; 85730; 87040; 87045; 87070; 87077; 87086; 87088; 87177; 87186; 87205; 87493; 93005; 93010; 94002; 94003; 94640; 94660; 94799; 96374; 99291; J0330; J1650; J1815; J1956; J2250; J2405; J2704; J3490; J7030; J7620; S0028

== ENCOUNTER 2018-09-30 13:09 | Emergency (ER) | payer MEDICARE, MEDICAID ==
[2018-09-30 13:29] LABS: ABSOLUTE EOSINOPHILS # (AUTO) 0.2 10^3/uL (0.0-0.6); ABSOLUTE LYMPHOCYTES (AUTO) 1.6 10^3/uL (0.5-4.7); ABSOLUTE MONOCYTES (AUTO) 0.4 10^3/uL (0.1-1.4); ABSOLUTE NEUT (AUTO) 3.8 10^3/uL (1.7-8.2); BASOPHILS % (AUTO) 0.6 % (0-2); HEMOGLOBIN 12.9 g/dL (13.5-17.0); LYMPHOCYTES % (AUTO) 26.9 % (13-45); MEAN CORPUSCULAR HEMOGLOBIN 31.7 pg (27.0-33.4); MEAN CORPUSCULAR HGB CONC 33.9 g/dL (32.0-36.0); MEAN CORPUSCULAR VOLUME 93 fl (80-97); MONOCYTES % (AUTO) 7.2 % (3-13); PLATELET COUNT 147 10^3/uL (150-450); RED BLOOD COUNT 4.07 10^6/uL (4.35-5.55); RED CELL DISTRIBUTION WIDTH 14.7 % (11.5-14.0); SEGMENTED NEUTROPHILS % (AUTO) 62.3 % (42-78); TOTAL CELLS COUNTED % (AUTO) 100 %; WHITE BLOOD COUNT 6.1 10^3/uL (4.0-10.5)
[2018-09-30 13:35] LABS: INTERNATIONAL RATION (INR) 0.85
[2018-09-30 13:57] LABS: ALANINE AMINOTRANSFERASE 22 U/L (21-72); ALBUMIN 4.2 g/dL (3.5-5.0); ALKALINE PHOSPHATASE 102 U/L (38-126); ASPARTATE AMINO TRANSFERASE 18 U/L (17-59); BILIRUBIN,DIRECT 0.2 mg/dL (0.0-0.4); BILIRUBIN,TOTAL 0.5 mg/dL (0.2-1.3); BLOOD UREA NITROGEN 16 mg/dL (7-20); CALCIUM 9.5 mg/dL (8.4-10.2); CREATINE KINASE 81 U/L (55-170); GLUCOSE 159 mg/dL (75-110); POTASSIUM 4.5 mmol/L (3.6-5.0); TOTAL PROTEIN 7.3 g/dL (6.3-8.2)
[2018-09-30 14:03] LABS: CARBON DIOXIDE 38 mmol/L (22-30); CHLORIDE 99 mmol/L (98-107)
[2018-09-30 14:05] LABS: ANION GAP 3 (5-19)
[2018-09-30 14:06] LABS: CREATINE KINASE MB 2.79 ng/mL (<4.55)
[2018-09-30 14:08] LABS: TROPONIN I < 0.012 ng/mL
[2018-09-30] MEDS ORDERED: IPRATROPIUM/ALBUTEROL 0.5-2.5 MG/3 ML AMPUL NEB ONE (14:20)
--- NOTE | 2018-09-30 14:46 | RADIOLOGY REPORT (SQ) ---
EXAM DESCRIPTION: CHEST SINGLE VIEW COMPLETED DATE/TIME: 09/30/2018 2:06 pm REASON FOR STUDY: shortness of breath COMPARISON: 09/04/2018. EXAM PARAMETERS: NUMBER OF VIEWS: One view. TECHNIQUE: Single frontal radiographic view of the chest acquired. RADIATION DOSE: NA LIMITATIONS: None. FINDINGS: LUNGS AND PLEURA: Patchy airspace disease in the lung bases. No masses or pneumothorax. N o pleural effusion. MEDIASTINUM AND HILAR STRUCTURES: No masses. Contour normal. HEART AND VASCULAR STRUCTURES: Heart normal in size. Normal vasculature. BONES: No acute findings. HARDWARE: None in the chest. OTHER: No other significant finding. IMPRESSION: PROBABLE BASILAR ATELECTASIS. CANNOT EXCLUDE AN EARLY PNEUMONIA. TECHNICAL DOCUMENTATION: JOB ID: [id number] [employer]- All Rights Reserved Reading location - IP/workstation name: [email or web address]
[2018-09-30 15:02] LABS: ARTERIAL BLOOD BASE EXCESS 9.7 mmol/L; ARTERIAL BLOOD H2CO3 1.71 mmol/L (1.05-1.35); ARTERIAL BLOOD O2 SATURATION 82.1 % (94-98); ARTERIAL BLOOD PCO2 56.9 mmHg (35-45); ARTERIAL BLOOD PH 7.42 (7.35-7.45); ARTERIAL BLOOD PO2 46.4 mmHg (80-100); ARTERIAL BLOOD TOTAL CO2 37.7 mmol/L (23-27)
[2018-09-30 15:03] LABS: ARTERIAL BLOOD FIO2 3L
[2018-09-30] MEDS ORDERED: PREDNISONE 20 MG TABLET PO ONE (16:00)
[2018-09-30] MEDS ORDERED: DOXYCYCLINE HYCLATE INJ 100 MG VIAL IV ONE (16:00)
[2018-09-30] MEDS ORDERED: ALBUTEROL SULFATE 0.083% NEB 2.5 MG/3 ML AMPUL NEB ONE (16:00)
--- NOTE | 2018-09-30 16:39 | ER Document Report ---
ED Respiratory Problem - General Chief Complaint: Breathing Difficulty Stated Complaint: SHORTNESS OF BREATH Time Seen by Provider: 09/30/18 14:12 Primary Care Provider: ARTEMIO KAMINSKI MD [Primary Care Provider] - Follow up tomorrow Mode of Arrival: Medic Information source: Patient Notes: Patient was discharged from a rehab facility yesterday. Patient has a history of COPD and wears oxygen at home. Patient's home health nurse came today and noticed that his oxygen saturation had dropped into the 60s. Patient states that he was not having any shortness of breath symptoms. Patient denies any chest pain symptoms. Patient states he did develop a cough that started yesterday and has had productive green sputum. Patient denies any fever. TRAVEL OUTSIDE OF THE [place] IN LAST 30 DAYS: No - HPI Patient complains to provider of: COPD, Cough. No: Chest pain Onset: Yesterday Duration: Better Quality of pain: No pain Pain Level: Denies Context: Hx COPD. denies: Recent immobilization, Smoker Cough: Productive Sputum amount: Small Sputum color: Green Associated symptoms: Cough. denies: Bloody cough, Chest pain/discomfort, Congestion, Fever, Short of breath Similar symptoms previously: Yes Recently seen / treated by doctor: Yes - Related Data Allergies/Adverse Reactions: amoxicillin [Amoxicillin] Adverse Reaction (Verified 08/30/18 22:27) Hives Iodinated Contrast- Oral and IV Dye [IV Dye, Iodine Containing] Adverse Reaction (Verified 08/30/18 22:27) Hives Penicillins Adverse Reaction (Verified 08/30/18 22:27) Hives Apricots Adverse Reaction (Mild, Uncoded 08/30/18 22:27) Hives Past Medical History - General Information source: Patient - Social History Smoking Status: Former Smoker - Quit 1 month ago Frequency of alcohol use: None Drug Abuse: None Occupation: None Lives with: Family Family History: COPD, Hypertension Patient has suicidal ideation: No Patient has homicidal ideation: No - Past Medical History Cardiac Medical History: Reports: Hx Hypercholesterolemia, Hx Hypertension Denies: Hx Coronary Artery Disease, Hx Heart Attack Pulmonary Medical History: Reports: Hx Asthma, Hx Bronchitis, Hx COPD, Hx Pn [place] Denies: Hx Tuberculosis Neurological Medical History: Denies: Hx Cerebrovascular Accident, Hx Seizures Endocrine Medical History: Reports: Hx Diabetes Mellitus Type 2 Renal/ Medical History: Denies: Hx Peritoneal Dialysis GI Medical History: Denies: Hx Cirrhosis, Hx Crohn's Disease, Hx Ulcerative Colitis Musculoskeletal Medical History: Denies Hx Arthritis Psychiatric Medical History: Reports: Hx Depression Traumatic Medical History: Denies: Hx Traumatic Brain Injury Infectious Medical History: Denies: Hx HIV Past Surgical History: Reports: Hx Abdominal Surgery - herniax3, Hx Cardiac Catheterization, Hx Cholecystectomy, Hx Orthopedic Surgery - R foot, Hx T onsillectomy - Immunizations Hx Diphtheria, Pertussis, Tetanus Vaccination: Yes Hx Pneumococcal Vaccination: 04/20/13 Review of Systems - Review of Systems Constitutional: No symptoms reported. denies: Fever, Recent illness EENT: No symptoms reported Cardiovascular: No symptoms reported. denies: Chest pain Respiratory: Cough, Sputum, Wheezing. denies: Hemoptysis, Short of breath Gastrointestinal: No symptoms reported. denies: Abdominal pain, Diarrhea, Nausea, Vomiting Genitourinary: No symptoms reported Male Genitourinary: No symptoms reported Musculoskeletal: No symptoms reported. denies: Back pain Skin: No symptoms reported Hematologic/Lymphatic: No symptoms reported Neurological/Psychological: No symptoms reported Physical Exam - Vital signs Vitals: Temp Resp 98.8 F 22 H 09/30/18 13:15 09/30/18 13:15 - General General appearance: Alert In distress: None - HEENT Head: Normocephalic, Atraumatic Eyes: Normal Conjunctiva: Normal Nasal: Normal Mouth/Lips: Normal Mucous membranes: Normal Neck: Normal, Supple. No: Lymphadenopathy, Meningismus - Respiratory Respiratory status: No respiratory distress. No: Labored, Tachypnea Chest status: Nontender Breath sounds: Nonproductive cough, Wheezing - Faint scattered wheezing Chest palpation: Normal - Cardiovascular Rhythm: Regular. No: Tachycardia Heart sounds: S1 appreciated, S2 appreciated Murmur: No - Abdominal Inspection: Morbidly Obese Distension: No distension Bowel sounds: Normal Tenderness: Nontender - Back Back: Normal, Nontender. No: CVA tenderness - Extremities General upper extremity: Normal inspection, Normal ROM General lower extremity: Normal inspection, Normal ROM - Neurological Neuro grossly intact: Yes Cognition: Normal Joseph Coma Scale Eye Opening: Spontaneous Joseph Coma Scale Verbal: Oriented Joseph Coma Scale Motor: Obeys Commands Joseph Coma Scale Total: 15 - Psychological Associated symptoms: Normal affect, Normal mood - Skin Skin Temperature: Warm Skin Moisture: Dry Skin Color: Normal Course - Re-evaluation Re-evalutation: 09/30/18 14:20 Pt with scattered wheezing, oxygen saturation 91% on 3 L of oxygen. 09/30/18 16:00 Patient's oxygen saturation 92 on 3 L of oxygen. Patient with faint scattered wheezing. We will add additional treatment as well as antibiotics given concern for COPD exacerbation at this time. Consulted with Dr. Eldridge regarding patient presentation and and his history of COPD exacerbations with his most recent admission requiring him to be intubated. 09/30/18 16:38 Consulted with patient's primary doctor Dr. Kaminski who is very familiar with patient. Dr. Kaminski states that he did see patient as he was rounding in the emergency department and stopped by and examined him. Dr. Kaminski did review patient's laboratory studies. Does not feel the patient requires admission. Does recommend giving patient a prescription of doxycycline as well as a short course of steroids and advises having patient continue his BiPAP at home for any shortness of breath symptoms. - Vital Signs Vital signs: Temp Pulse Resp BP Pulse Ox 98.8 F 28 H 154/73 H 93 09/30/18 13:15 09/30/18 17:02 09/30/18 17:02 09/30/18 17:02 - Laboratory Result Diagrams: 09/30/18 12:38 09/30/18 12:38 Laboratory results interpreted by me: 09/30/18 09/30/18 09/30/18 12:38 12:38 14:38 RBC 4.07 L Hgb 12.9 L RDW 14.7 H Plt Count 147 L Carbonic Acid 1.71 H ABG pCO2 56.9 H ABG pO2 46.4 L ABG HCO3 36.0 H ABG Total CO2 37.7 H ABG O2 Saturation 82.1 L Carbon Dioxide 38 H Anion Gap 3 L Glucose 159 H 09/30/18 16:39 Labs- Entire Visit 09/30/18 09/30/18 09/30/18 12:38 12:38 12:38 WBC 6.1 RBC 4.07 L Hgb 12.9 L Hct 38.0 MCV 93 MCH 31.7 MCHC 33.9 RDW 14.7 H Plt Count 147 L Seg Neutrophils % 62.3 Lymphocytes % 26.9 Monocytes % 7.2 Eosinophils % 3.0 Basophils % 0.6 Absolute Neutrophils 3.8 Absolute Lymphocytes 1.6 Absolute Monocytes 0.4 Absolute Eosinophils 0.2 Absolute Basophils 0.0 PT 12.0 INR 0.85 Carbonic Acid HCO3/H2CO3 Ratio ABG pH ABG pCO2 ABG pO2 ABG HCO3 ABG Total CO2 ABG O2 Saturation ABG Base Excess FiO2 Sodium 140.0 Potassium 4.5 Chloride 99 Carbon Dioxide 38 H Anion Gap 3 L BUN 16 Creatinine 0.73 Est GFR ( Amer) > 60 Est GFR (Non-Af Amer) > 60 Glucose 159 H Calcium 9.5 Total Bilirubin 0.5 Direct Bilirubin 0.2 Neonat Total Bilirubin Not Reportable Neonat Direct Bilirubin Not Reportable Neonat Indirect Bili Not Reportable AST 18 ALT 22 Alkaline Phosphatase 102 Creatine Kinase 81 CK-MB (CK-2) Troponin I Total Protein 7.3 Albumin 4.2 09/30/18 09/30/18 12:38 14:38 WBC RBC Hgb Hct MCV MCH MCHC RDW Plt Count Seg Neutrophils % Lymphocytes % Monocytes % Eosinophils % Basophils % Absolute Neutrophils Absolute Lymphocytes Absolute Monocytes Absolute Eosinophils Absolute Basophils PT INR Carbonic Acid 1.71 H HCO3/H2CO3 Ratio 21:1 ABG pH 7.42 ABG pCO2 56.9 H ABG pO2 46.4 L ABG HCO3 36.0 H ABG Total CO2 37.7 H ABG O2 Saturation 82.1 L ABG Base Excess 9.7 FiO2 3L Sodium Potassium Chloride Carbon Dioxide Anion Gap BUN Creatinine Est GFR ( Amer) Est GFR (Non-Af Amer) Glucose Calcium Total Bilirubin Direct Bilirubin Neonat Total Bilirubin Neonat Direct Bilirubin Neonat Indirect Bili AST ALT Alkaline Phosphatase Creatine Kinase CK-MB (CK-2) 2.79 Troponin I < 0.012 Total Protein Albumin - Diagnostic Test Radiology reviewed: Image reviewed, Reports reviewed Discharge - Discharge Clinical Impression: COPD with acute exacerbation Condition: Stable Disposition: HOME, SELF-CARE Instructions: Chronic Obstructive Lung Disease ([facility]), Doxycycline ([facility]), Stero id Medication Additional Instructions: Return immediately for any new or worsening symptoms Followup with your primary care provider, call tomorrow to make a followup appointment Use your inhalers and nebulizers that you have at home as prescribed Use your BiPAP at home as directed per Dr. Kaminski. Prescriptions: Doxycycline Hyclate 100 mg PO BID #20 capsule Prednisone [Deltasone 20 mg Tablet] 2 tab PO DAILY 4 Days tablet Referrals: ARTEMIO KAMINSKI MD [Primary Care Provider] - Follow up tomorrow
[2018-09-30] MEDS ORDERED: DOXYCYCLINE HYCLATE 100 MG TABLET PO ONE (16:40)
[2018-09-30 17:12] VITALS: BP 154/73
--- NOTE | 2018-09-30 19:22 | EKG REPORT ---
SEVERITY:- OTHERWISE NORMAL ECG - SINUS RHYTHM BORDERLINE RIGHT AXIS DEVIATION : Confirmed by: Guillermo Pham MD 30-Sep-2018 19:21:42
== END 2018-09-30 17:30 | disposition home or self-care (01) ==
LOC: ER 13:09
DX: J44.1 Chronic obstructive pulmonary disease with (acute) exacerbation (principal); Z99.81 Dependence on supplemental oxygen; R05 Cough; I10 Essential (primary) hypertension; E11.9 Type 2 diabetes mellitus without complications; Z87.01 Personal history of pneumonia (recurrent); Z87.891 Personal history of nicotine dependence
CPT/HCPCS: 93005; 94640 ×2; 99285; 36415; 82553; 82803; 82550; 85025; 85610; 80053; 84484; 71045; 93010; A9270 ×4; J7512; J7620

== ENCOUNTER 2018-11-04 14:43 | Emergency (ER) | payer MEDICARE, MEDICAID ==
[2018-11-04] MEDS ORDERED: IPRATROPIUM/ALBUTEROL 0.5-2.5 MG/3 ML AMPUL NEB ONE ×2 (15:01→17:38)
--- NOTE | 2018-11-04 15:03 | ER Document Report ---
ED Medical Screen (RME) - General Chief Complaint: Cough Stated Complaint: SORE THROAT Time Seen by Provider: 11/04/18 14:57 Primary Care Provider: ARTEMIO KAMINSKI MD [Primary Care Provider] - Follow up as needed TRAVEL OUTSIDE OF THE [place] IN LAST 30 DAYS: No - HPI Notes: 11/04/18 15:01 Patient is a 52-year-old male with a history of oxygen dependent COPD, hypertension, coronary artery disease, diabetes type 2 who presents the emergency department complaining of productive cough that has yellow in color and sore throat. Patient has had a cough for the last couple weeks and a sore throat over the last couple days. Patient did have a COPD exacerbation and was intubated/sent to [place] last month. Patient states that he currently does not have any shortness of breath that the ordinary for him. He does use inhalers and nebulizer treatments at home. Denies BROWN, fever, neck pain, URI, CP, SOB, Abd pain, or rash. I have treated and performed a rapid initial assessment of this patient. A comprehensive ED assessment and evaluation of the patient, analysis of test results and completion of medical decision making process will be conducted by additional ED providers. PHYSICAL EXAMINATION: GENERAL: Well-appearing, well-nourished and in no acute distress. A&Ox4. Answers questions appropriately. LUNGS: scant expiratory wheeze/rhonchi, no retractions HEART: Regular rate and rhythm without murmurs, rubs, gallops. NEUROLOGICAL: Normal speech, normal gait. PSYCH: Normal mood, normal affect. - Related Data Allergies/Adverse Reactions: amoxicillin [Amoxicillin] Adverse Reaction (Verified 11/04/18 14:46) Hives Iodinated Contrast- Oral and IV Dye [IV Dye, Iodine Containing] Adverse Reaction (Verified 11/04/18 14:46) Hives Penicillins Adverse Reaction (Verified 11/04/18 14:46) Hives Apricots Adverse Reaction (Mild, Uncoded 11/04/18 14:46) Hives Past Medical History - Social History Frequency of alcohol use: None Drug Abuse: None Family history: Reviewed & Not Pertinent - Past Medical History Cardiac Medical History: Reports: Hx Hypercholesterolemia, Hx Hypertension Denies: Hx Coronary Artery Disease, Hx Heart Attack Pulmonary Medical History: Reports: Hx Asthma, Hx Bronchitis, Hx COPD, Hx Pneumonia Denies: Hx Tuberculosis Neurological Medical History: Denies: Hx Cerebrovascular Accident, Hx Seizures Endocrine Medical History: Reports: Hx Diabetes Mellitus Type 2 Renal/ Medical History: Denies: Hx Peritoneal Dialysis GI Medical History: Denies: Hx Cirrhosis, Hx Crohn's Disease, Hx Ulcerative Colitis Musculoskeltal Medical History: Denies Hx Arthritis Psychiatric Medical History: Reports: Hx Depression Traumatic Medical History: Denies: Hx Traumatic Brain Injury Infectious Medical History: Denies: Hx HIV Past Surgical History: Reports: Hx Abdominal Surgery - herniax3, Hx Cardiac Catheterization, Hx Cholecystectomy, Hx Orthopedic Surgery - R foot, Hx Tonsillectomy - Immunizations Hx Diphtheria, Pertussis, Tetanus Vaccination: Yes History of Influenza Vaccine for 04/2017 - 09/2017 Season: Yes Physical Exam - Vital signs Vitals: Temp Pulse Resp BP Pulse Ox 98.3 F 68 24 H 126/78 H 98 11/04/18 14:49 11/04/18 14:49 11/04/18 14:49 11/04/18 14:49 11/04/18 14:49 Course - Vital Signs Vital signs: Temp Pulse Resp BP Pulse Ox 98.3 F 68 24 H 126/78 H 98 11/04/18 14:49 11/04/18 14:49 11/04/18 14:49 11/04/18 14:49 11/04/18 14:49 Doctor's Discharge - Discharge Referrals: ARTEMIO KAMINSKI MD [Primary Care Provider] - Follow up as needed
[2018-11-04 15:46] LABS: ABSOLUTE EOSINOPHILS # (AUTO) 0.1 10^3/uL (0.0-0.6); ABSOLUTE LYMPHOCYTES (AUTO) 0.7 10^3/uL (0.5-4.7); ABSOLUTE MONOCYTES (AUTO) 0.4 10^3/uL (0.1-1.4); BASOPHILS % (AUTO) 0.5 % (0-2); EOSINOPHILS % (AUTO) 1.8 % (0-6); HEMATOCRIT 39.5 % (37.9-51.0); HEMOGLOBIN 13.2 g/dL (13.5-17.0); LYMPHOCYTES % (AUTO) 13.7 % (13-45); MEAN CORPUSCULAR HEMOGLOBIN 31.1 pg (27.0-33.4); MEAN CORPUSCULAR HGB CONC 33.4 g/dL (32.0-36.0); MEAN CORPUSCULAR VOLUME 93 fl (80-97); MONOCYTES % (AUTO) 7.4 % (3-13); PLATELET COUNT 169 10^3/uL (150-450); RED BLOOD COUNT 4.25 10^6/uL (4.35-5.55); RED CELL DISTRIBUTION WIDTH 14.4 % (11.5-14.0); SEGMENTED NEUTROPHILS % (AUTO) 76.6 % (42-78); TOTAL CELLS COUNTED % (AUTO) 100 %; WHITE BLOOD COUNT 5.2 10^3/uL (4.0-10.5)
--- NOTE | 2018-11-04 15:55 | RADIOLOGY REPORT (SQ) ---
EXAM DESCRIPTION: CHEST 2 VIEWS COMPLETED DATE/TIME: 11/04/2018 3:45 pm REASON FOR STUDY: cough COMPARISON: 09/30/2018 EXAM PARAMETERS: NUMBER OF VIEWS: two views TECHNIQUE: Digital Frontal and Lateral radiographic views of the chest acquired. RADIATION DOSE: NA LIMITATIONS: none FINDINGS: LUNGS AND PLEURA: Unchanged bibasilar scarring or atelectasis. MEDIASTINUM AND HILAR STRUCTURES: No masses or contour abnormalities. HEART AND VASCULAR STRUCTURES: Cardiomegaly. BONES: No acute findings. HARDWARE: None in the chest. OTHER: No other significant finding. IMPRESSION: Unchanged bibasilar scarring or atelectasis. No acute appearing airspace opacity. Card iomegaly. TECHNICAL DOCUMENTATION: JOB ID: [id number] [employer]- All Rights Reserved Reading location - IP/workstation name: [email or web address]
[2018-11-04 16:04] LABS: ALANINE AMINOTRANSFERASE 22 U/L (21-72); ALBUMIN 3.8 g/dL (3.5-5.0); ALKALINE PHOSPHATASE 91 U/L (38-126); ANION GAP 8 (5-19); ASPARTATE AMINO TRANSFERASE 13 U/L (17-59); BILIRUBIN,DIRECT 0.3 mg/dL (0.0-0.4); BILIRUBIN,TOTAL 0.4 mg/dL (0.2-1.3); BLOOD UREA NITROGEN 18 mg/dL (7-20); CALCIUM 9.5 mg/dL (8.4-10.2); CARBON DIOXIDE 33 mmol/L (22-30); CHLORIDE 93 mmol/L (98-107); GLUCOSE 316 mg/dL (75-110); POTASSIUM 4.8 mmol/L (3.6-5.0); TOTAL PROTEIN 6.6 g/dL (6.3-8.2)
[2018-11-04] MEDS ORDERED: DEXAMETHASONE SOD PHOS INJ 10 MG/1 ML VIAL IM ONE (17:38)
[2018-11-04] MEDS ORDERED: INSULIN GLARGINE,HUM.REC.ANLOG 1,000 UNIT/10 ML VIAL SUBCUT ONE (17:39)
--- NOTE | 2018-11-04 17:41 | ER Document Report ---
ED General - General Chief Complaint: Cough Stated Complaint: SORE THROAT Time Seen by Provider: 11/04/18 14:57 Primary Care Provider: ARTEMIO KAMINSKI MD [Primary Care Provider] - Follow up in 3-5 days OLGA ZUNIGA DO [ASSOCIATE] - Follow up in 3-5 days Notes: Patient is a 52-year-old male with history of COPD and recent hospitalization with intubation that presents to the emergency department for chief complaint of sore throat and cough. Patient states he has been having a cough at home, and is been going on for the past week, with productive green sputum which is concerned him, he does have COPD and has had oxygen at home, he was recently intubated about a month ago, for pneumonia, he is been having sore throat since he was extubated. He denies having any difficulty speaking, or hoarse voice. Denies any difficulty swallowing either. He denies feeling any more shortness of breath than usual. Denies any chest pain, nausea, vomiting, abdominal pain, dysuria, hematuria or diarrhea. Past Medical History: COPD, BPH, hyperlipidemia, obstructive sleep apnea, diabetes mellitus, hypertension Past Surgical History: Hernia repair x2, left heart cath Social History: Former smoker, quit recently, denies alcohol or drug use. Family History: Reviewed and noncontributory for presenting illness Allergies: Reviewed, see documented allergy list. REVIEW OF SYSTEMS: Other than noted above, the 12 point review of systems was reviewed with the patient and were negative, all pertinent findings are included in the HPI. PHYSICAL EXAMINATION: Vital signs reviewed, nursing noted reviewed. GENERAL: Obese male and in no acute distress. HEAD: Atraumatic, normocephalic. EYES: Eyes appear normal, extraocular movements intact, sclera anicteric, conjunctiva are normal. ENT: nares patent, oropharynx clear without exudates. Moist mucous membranes. NECK: Normal range of motion, supple without lymphadenopathy LUNGS: Poor thoracic excursion, some expiratory wheezing noted, but mild, throughout all lung dickinson, no acute respiratory distress HEART: Regular rate and rhythm without murmurs ABDOMEN: Soft, obese, nontender, normoactive bowel sounds. No rebound, guarding, or rigidity. No masses appreciated. EXTREMITIES: Nontender, good range of motion, trace bilateral lower extremity edema NEUROLOGICAL: No focal neurological deficits. Moves all extremities spontaneously Motor and sensory grossly intact on exam. PSYCH: Normal mood, normal affect. SKIN: Warm, Dry, normal turgor, no rashes or lesions noted on exposed skin TRAVEL OUTSIDE OF THE [place] IN LAST 30 DAYS: No - Related Data Allergies/Adverse Reactions: amoxicillin [Amoxicillin] Adverse Reaction (Verified 11/04/18 14:46) Hives Iodinated Contrast- Oral and IV Dye [IV Dye, Iodine Containing] Adverse Reaction (Verified 11/04/18 14:46) Hives Penicillins Adverse Reaction (Verified 11/04/18 14:46) Hives Apricots Adverse Reaction (Mild, Uncoded 11/04/18 14:46) Hives Past Medical History - Social History Smoking Status: Former Smoker Frequency of alcohol use: None Drug Abuse: None Family History: COPD, Hypertension Patient has suicidal ideation: No Patient has homicidal ideation: No - Past Medical History Cardiac Medical History: Reports: Hx Hypercholesterolemia, Hx Hypertension Denies: Hx Coronary Artery Disease, Hx Heart Attack Pulmonary Medical History: Reports: Hx Asthma, Hx Bronchitis, Hx COPD, Hx Pneumonia Denies: Hx Tuberculosis Neurological Medical History: Denies: Hx Cerebrovascular Accident, Hx Seizures Endocrine Medical History: Reports: Hx Diabetes Mellitus Type 2 Renal/ Medical History: Denies: Hx Peritoneal Dialysis GI Medical History: Denies: Hx Cirrhosis, Hx Crohn's Disease, Hx Ulcerative Colitis Musculoskeletal Medical History: Denies Hx Arthritis Psychiatric Medical History: Reports: Hx Depression Traumatic Medical History: Denies: Hx Traumatic Brain Injury Infectious Medical History: Denies: Hx HIV Past Surgical History: Reports: Hx Abdominal Surgery - herniax3, Hx Cardiac Catheterization, Hx Cholecystectomy, Hx Orthopedic Surgery - R foot, Hx Tonsillectomy - Immunizations Hx Diphtheria, Pertussis, Tetanus Vaccination: Yes Hx Pneumococcal Vaccination: 04/20/13 Physical Exam - Vital signs Vitals: Temp Pulse Resp BP Pulse Ox 98.3 F 68 24 H 126/78 H 98 11/04/18 14:49 11/04/18 14:49 11/04/18 14:49 11/04/18 14:49 11/04/18 14:49 Course - Re-evaluation Re-evalutation: Patient seen and examined vital signs reviewed. Laboratory data and/or imaging were ordered as appropriate for the patient's presenting symptoms and complaint, with consideration of any critical or life threatening conditions that may be associated with their obtained history and exam as noted above. Patient was treated with DuoNeb breathing treatments, he is given a dose of IM Decadron for the sore throat he is having, his strep testing was negative, the rest of his blood work was otherwise unremarkable, chest x-ray negative for pneumonia just basilar scarring The patient was re-evaluated and was stable and improved, lung sounds improved, discussed with patient follow-up with ENT, if needed if his throat was still bothering him over the next few days, he is given a prescription for doxycycline 100 mg twice daily for 7 days for productive sputum, in a patient with COPD structural lung disease, and recent intubation. Evaluation was most consistent with productive cough, sore throat Results were discussed with the patient at this point, after careful consideration I feel that that patient can be discharged from the emergency d epartment, the patient was educated treatments and reasons to return to the emergency department based on their presumed diagnosis as noted above, they were advised to followup with a primary care physician in 2-3 days. Patient was agreeable to plan of care. *Note is created using voice recognition software and may contain spelling, syntax or grammatical errors. Laboratory 11/04/18 11/04/18 11/04/18 15:20 15:20 15:20 WBC 5.2 RBC 4.25 L Hgb 13.2 L Hct 39.5 MCV 93 MCH 31.1 MCHC 33.4 RDW 14.4 H Plt Count 169 Seg Neutrophils % 76.6 Lymphocytes % 13.7 Monocytes % 7.4 Eosinophils % 1.8 Basophils % 0.5 Absolute Neutrophils 4.0 Absolute Lymphocytes 0.7 Absolute Monocytes 0.4 Absolute Eosinophils 0.1 Absolute Basophils 0.0 Sodium 134.0 L Potassium 4.8 Chloride 93 L Carbon Dioxide 33 H Anion Gap 8 BUN 18 Creatinine 0.91 Est GFR ( Amer) > 60 Est GFR (Non-Af Amer) > 60 Glucose 316 H Calcium 9.5 Total Bilirubin 0.4 Direct Bilirubin 0.3 Neonat Total Bilirubin Not Reportable Neonat Direct Bilirubin Not Reportable Neonat Indirect Bili Not Reportable AST 13 L ALT 22 Alkaline Phosphatase 91 Total Protein 6.6 Albumin 3.8 Group A Strep Rapid NEGATIVE Chest X-Ray 11/04/18 15:01 IMPRESSION: Unchanged bibasilar scarring or atelectasis. No acute appearing airspace opacity. Cardiomegaly. - Vital Signs Vital signs: Temp Pulse Resp BP Pulse Ox 98.3 F 68 24 H 126/78 H 98 11/04/18 14:49 11/04/18 14:49 11/04/18 14:49 11/04/18 14:49 11/04/18 14:49 - Laboratory Result Diagrams: 11/04/18 15:20 11/04/18 15:20 Laboratory results interpreted by me: 11/04/18 11/04/18 15:20 15:20 RBC 4.25 L Hgb 13.2 L RDW 14.4 H Sodium 134.0 L Chloride 93 L Carbon Dioxide 33 H Glucose 316 H AST 13 L Discharge - Discharge Clinical Impression: Sore throat, Productive cough COPD (chronic obstructive pulmonary disease) Qualifiers: COPD type: unspecified COPD Qualified Code(s): J44.9 - Chronic obstructive pulmonary disease, unspecified Condition: Stable Disposition: HOME, SELF-CARE Unit Admitted: Pediatrics Instructions: Chronic Obstructive Lung Disease ([facility]) Additional Instructions: Please finish the entire course of antibiotics as prescribed, he will have some sore throat, after having a breathing tube, but it should improve over time, and the steroid should help, if this persists, please follow-up with an ear nose and throat physician, one has been provided with your discharge paperwork. Prescriptions: Doxycycline Hyclate 100 mg PO BID #14 capsule Referrals: ARTEMIO KAMINSKI MD [Primary Care Provider] - Follow up in 3-5 days OLGA ZUNIGA DO [ASSOCIATE] - Follow up in 3-5 days
[2018-11-04 20:07] VITALS: BP 137/52
== END 2018-11-04 20:00 | disposition home or self-care (01) ==
LOC: ER 14:43
DX: J02.9 Acute pharyngitis, unspecified (principal); J44.9 Chronic obstructive pulmonary disease, unspecified; R05 Cough; E78.00 Pure hypercholesterolemia, unspecified; I10 Essential (primary) hypertension; E11.9 Type 2 diabetes mellitus without complications; Z90.49 Acquired absence of other specified parts of digestive tract
CPT/HCPCS: 94640 ×2; 99283; 96372; 36415; 87070; 87880; 85025; 80053; 71046; A9270 ×2; J1100; J1815; J7620

== ENCOUNTER 2018-12-23 20:01 | Inpatient (IN) | payer MEDICARE, MEDICAID ==
[2018-12-23] MEDS ORDERED: IPRATROPIUM/ALBUTEROL 0.5-2.5 MG/3 ML AMPUL NEB ONE ×5 (20:02→21:09)
[2018-12-23] MEDS ORDERED: METHYLPREDNISOLONE INJ 125 MG/2 ML SDV IV ONE ×2 (20:02→20:23)
[2018-12-23] MEDS ORDERED: MAGNESIUM SULFATE/D5W 1 GM/100 ML RTUPB IV ONE ×2 (20:07→20:38)
[2018-12-23] MEDS ORDERED: FUROSEMIDE INJ/PF 40 MG/4 ML SDV ONE (20:08)
[2018-12-23] MEDS: ALBUTEROL SULFATE 0.083% NEB 2.5 MG/3 ML AMPUL NEB SCH ×2 (20:21→20:38)
[2018-12-23] MEDS ORDERED: FUROSEMIDE INJ/PF 40 MG/4 ML SDV IV ONE (20:22)
[2018-12-23] MEDS ORDERED: NITROGLYCERIN/D5W 50 MG/250 ML RTUINJ IV ONE (20:26)
[2018-12-23 20:33] LABS: VENOUS BLOOD BASE EXCESS -2.2 mmol/L; VENOUS BLOOD HCO3 27.3 mmol/L (20-32); VENOUS BLOOD PH 7.22 (7.30-7.42)
[2018-12-23 20:36] LABS: ABSOLUTE BASOPHILS # (AUTO) 0.1 10^3/uL (0.0-0.2); ABSOLUTE EOSINOPHILS # (AUTO) 0.1 10^3/uL (0.0-0.6); ABSOLUTE LYMPHOCYTES (AUTO) 1.5 10^3/uL (0.5-4.7); ABSOLUTE MONOCYTES (AUTO) 0.6 10^3/uL (0.1-1.4); ABSOLUTE NEUT (AUTO) 10.2 10^3/uL (1.7-8.2); BASOPHILS % (AUTO) 0.4 % (0-2); EOSINOPHILS % (AUTO) 0.4 % (0-6); HEMATOCRIT 41.6 % (37.9-51.0); LYMPHOCYTES % (AUTO) 12.2 % (13-45); MEAN CORPUSCULAR HEMOGLOBIN 30.9 pg (27.0-33.4); MEAN CORPUSCULAR HGB CONC 33.7 g/dL (32.0-36.0); MEAN CORPUSCULAR VOLUME 92 fl (80-97); MONOCYTES % (AUTO) 5.2 % (3-13); PLATELET COUNT 172 10^3/uL (150-450); RED BLOOD COUNT 4.53 10^6/uL (4.35-5.55); RED CELL DISTRIBUTION WIDTH 14.8 % (11.5-14.0); SEGMENTED NEUTROPHILS % (AUTO) 81.8 % (42-78); TOTAL CELLS COUNTED % (AUTO) 100 %; WHITE BLOOD COUNT 12.4 10^3/uL (4.0-10.5)
[2018-12-23 20:40] LABS: VENOUS BLOOD PCO2 68.8 mmHg (35-63)
[2018-12-23] MEDS ORDERED: NITROGLYCERIN/D5W 50 MG/250 ML RTUINJ IV PRN (20:42)
[2018-12-23 20:52] LABS: ALANINE AMINOTRANSFERASE 28 U/L (21-72); ALBUMIN 4.4 g/dL (3.5-5.0); ALKALINE PHOSPHATASE 110 U/L (38-126); ANION GAP 12 (5-19); ASPARTATE AMINO TRANSFERASE 15 U/L (17-59); BILIRUBIN,DIRECT 0.3 mg/dL (0.0-0.4); BILIRUBIN,TOTAL 0.3 mg/dL (0.2-1.3); BLOOD UREA NITROGEN 16 mg/dL (7-20); CALCIUM 9.5 mg/dL (8.4-10.2); CARBON DIOXIDE 24 mmol/L (22-30); CHLORIDE 101 mmol/L (98-107); GLUCOSE 369 mg/dL (75-110); POTASSIUM 5.5 mmol/L (3.6-5.0); SODIUM 136.6 mmol/L (137-145)
--- NOTE | 2018-12-23 20:55 | RADIOLOGY REPORT (SQ) ---
XR CHEST 1 VIEW HISTORY: Respiratory distress. COMPARISON: 09/30/2018 FINDINGS: The heart size is within normal limits. No consolidation, pleural effusion, or pneumothorax is seen. Mild atelectasis at lung bases. There are no acute bony findings. IMPRESSION: No evidence of acute cardiopulmonary disease.
[2018-12-23 21:27] LABS: CREATINE KINASE MB 2.46 ng/mL (<4.55)
[2018-12-23 21:29] LABS: TROPONIN I < 0.012 ng/mL
--- NOTE | 2018-12-23 21:31 | ER Document Report ---
ED General - General Chief Complaint: Respiratory Distress Stated Complaint: SHORTNESS OF BREATH Time Seen by Provider: 12/23/18 20:43 Primary Care Provider: ARTEMIO KAMINSKI MD [Primary Care Provider] - Follow up as needed Mode of Arrival: Medic Information source: Patient Notes: This is a 53-year-old man with a history of COPD, respiratory failure, obstructive sleep apnea, hypertension who was brought in by EMS with severe respiratory distress and oxygen saturation in the 50s on arrival. Patient blood pressure to be markedly elevated (217/178). TRAVEL OUTSIDE OF THE [place] IN LAST 30 DAYS: No - HPI Onset: Just prior to arrival Onset/Duration: Sudden Quality of pain: No pain Severity: None Pain Level: Denies Associated symptoms: Shortness of breath. denies: Chest pain, Fever Exacerbated by: Movement Relieved by: Denies Similar symptoms previously: Yes Recently seen / treated by doctor: Yes - Related Data Allergies/Adverse Reactions: amoxicillin [Amoxicillin] Adverse Reaction (Verified 11/04/18 14:46) Hives Iodinated Contrast- Oral and IV Dye [IV Dye, Iodine Containing] Adverse Reaction (Verified 11/04/18 14:46) Hives Penicillins Adverse Reaction (Verified 11/04/18 14:46) Hives Apricots Adverse Reaction (Mild, Uncoded 11/04/18 14:46) Hives Past Medical History - General Information source: Emergency Med Personnel - Social History Smoking Status: Unknown if Ever Smoked Cigarette use (# per day): No Chew tobacco use (# tins/day): No Frequency of alcohol use: None Drug Abuse: None Lives with: Family Family History: COPD, Hypertension Patient has suicidal ideation: No Patient has homicidal ideation: No - Past Medical History Cardiac Medical History: Reports: Hx Hypercholesterolemia, Hx Hypertension Denies: Hx Coronary Artery Disease, Hx Heart Attack Pulmonary Medical History: Reports: Hx Asthma, Hx Bronchitis, Hx COPD, Hx Pneumonia Denies: Hx Tuberculosis Neurological Medical History: Denies: Hx Cerebrovascular Accident, Hx Seizures Endocrine Medical History: Reports: Hx Diabetes Mellitus Type 2 Renal/ Medical History: Denies: Hx Peritoneal Dialysis GI Medical History: Denies: Hx Cirrhosis, Hx Crohn's Disease, Hx Ulcerative C olitis Musculoskeletal Medical History: Denies Hx Arthritis Psychiatric Medical History: Reports: Hx Depression Traumatic Medical History: Denies: Hx Traumatic Brain Injury Infectious Medical History: Denies: Hx HIV Past Surgical History: Reports: Hx Abdominal Surgery - herniax3, Hx Cardiac Catheterization, Hx Cholecystectomy, Hx Orthopedic Surgery - R foot, Hx Tonsillectomy - Immunizations Hx Diphtheria, Pertussis, Tetanus Vaccination: Yes Hx Pneumococcal Vaccination: 04/20/13 Review of Systems - Review of Systems Constitutional: denies: Chills, Fever EENT: No symptoms reported Cardiovascular: See HPI Gastrointestinal: See HPI Genitourinary: No symptoms reported Male Genitourinary: No symptoms reported Musculoskeletal: No symptoms reported Skin: No symptoms reported Hematologic/Lymphatic: No symptoms reported Neurological/Psychological: No symptoms reported Physical Exam - Vital signs Vitals: Pulse Ox 97 12/23/18 20:02 Notes: Physical exam: GENERAL: Severe respiratory distress with accessory muscle use, O2 sat in the 50s on arrival. Blood pressure 217/178. HEAD: Atraumatic, normocephalic. EYES: Pupils equal round and reactive to light, extraocular movements intact, sclera anicteric, conjunctiva are normal. ENT: TMs normal, nares patent, oropharynx clear without exudates. Moist mucous membranes. NECK: Normal range of motion, supple without obvious mass or JVD. LUNGS: Diminished breath sounds bilaterally, significant respiratory distress with accessory muscle use. HEART: Tachycardia without murmurs, rubs or gallops. ABDOMEN: Soft, normoactive bowel sounds. No tenderness to palpation. No guarding, no rebound. No masses appreciated. EXTREMITIES: 1+ pitting edema NEUROLOGICAL: He does answer questions, moving all extremities. PSYCH: Very anxious SKIN: Warm, Dry, normal turgor, no rashes or lesions noted. Course - Re-evaluation Re-evalutation: Patient treated with IV nitro drip, IV Solu-Medrol, IV magnesium, dual nebs, BiPAP. 12/23/18 21:31 Currently, the patient eating much better. He is easily arousable and states he is feels better. His blood pressure is 120/57, pulse 132, O2 sat 95%, respiratory rate 29. He is received several dual neb treatments, IV Solu- Medrol, IV magnesium, IV nitroglycerin and he is currently on BiPAP (06/25), 50% FiO2. 12/23/18 21:35 12/24/18 00:04 Patient is significantly better clinically. ABG shows mild improvement in the pH. Will titrate down his FiO2 given his oxygenation. Clinically, he is much better. He is currently off all hypertensive drips. He is now on maintenance IV fluids. - Vital Signs Vital signs: Temp Pulse Resp BP Pulse Ox 19 116/63 94 12/24/18 00:04 12/24/18 00:04 12/24/18 00:04 - Laboratory Result Diagrams: 12/23/18 20:17 12/23/18 20:17 Laboratory results interpreted by me: 12/23/18 12/23/18 12/23/18 20:17 20:17 20:17 WBC 12.4 H RDW 14.8 H Seg Neutrophils % 81.8 H Lymphocytes % 12.2 L Absolute Neutrophils 10.2 H Carbonic Acid ABG pH ABG pCO2 ABG HCO3 ABG Total CO2 VBG pH 7.22 L VBG pCO2 68.8 H* Sodium 136.6 L Potassium 5.5 H Glucose 369 H AST 15 L Urine Protein Urine Glucose (UA) Urine Ketones Urine Blood 12/23/18 12/23/18 21:15 23:27 WBC RDW Seg Neutrophils % Lymphocytes % Absolute Neutrophils Carbonic Acid 1.69 H ABG pH 7.27 L ABG pCO2 56.3 H ABG HCO3 25.4 H ABG Total CO2 27.1 H VBG pH VBG pCO2 Sodium Potassium Glucose AST Urine Protein 100 H Urine Glucose (UA) >=500 H Urine Ketones TRACE H Urine Blood SMALL H - Diagnostic Test Radiology reviewed: Image reviewed, Reports reviewed - No obvious infiltrates - EKG Interpretation by Me Rate: Tachycardia - EKG shows tachycardia with a ventricular rate of 126, no acute ST-T wave changes Critical Care Note - Critical Care Note Total time excluding time spent on procedures (mins): 60 Discharge - Discharge Clinical Impression: COPD with respiratory failure, Hypertensive emergency Condition: Serious Disposition: ADMITTED INPATIENT Admitting Provider: David Unit Admitted: IMCU Referrals: ARTEMIO KAMINSKI MD [Primary Care Provider] - Follow up as needed
[2018-12-23] MEDS: MAGNESIUM SULFATE/D5W 1 GM/100 ML RTUPB IV SCH ×2 (22:07→22:09)
[2018-12-23 23:00] LABS: APPEARANCE,URINE CLEAR; BILIRUBIN,URINE NEGATIVE (NEGATIVE); COLOR,URINE STRAW; GLUCOSE, URINE >=500 mg/dL (NEGATIVE); KETONES,URINE TRACE mg/dL (NEGATIVE); LEUKOCYTE ESTERASE,URINE NEGATIVE (NEGATIVE); NITRITE,URINE NEGATIVE (NEGATIVE); PROTEIN,URINE 100 mg/dL (NEGATIVE); URINE SPECIFIC GRAVITY 1.016; UROBILINOGEN,URINE NEGATIVE mg/dL (<2.0)
[2018-12-23] MEDS: NORMAL SALINE 1000 ML 1,000 ML IV PRN (23:15)
[2018-12-23 23:56] LABS: ARTERIAL BLOOD BASE EXCESS -2.3 mmol/L; ARTERIAL BLOOD FIO2 50%; ARTERIAL BLOOD H2CO3 1.69 mmol/L (1.05-1.35); ARTERIAL BLOOD HCO3 25.4 mmol/L (20-24); ARTERIAL BLOOD O2 SATURATION 96.6 % (94-98); ARTERIAL BLOOD PCO2 56.3 mmHg (35-45); ARTERIAL BLOOD PH 7.27 (7.35-7.45); ARTERIAL BLOOD PO2 98.9 mmHg (80-100); ARTERIAL BLOOD TOTAL CO2 27.1 mmol/L (23-27)
[2018-12-24] MEDS ORDERED: ACETAMINOPHEN 325 MG TABLET PO PRN (00:04)
[2018-12-24] MEDS ORDERED: DEXTROSE 40% GEL 15 GM TUBE PO PRN ×2 (00:13)
[2018-12-24] MEDS ORDERED: DEXTROSE 50%-WATER 25 GM/50 ML DISP.SYRIN IV PRN ×2 (00:13)
[2018-12-24] MEDS ORDERED: GLUCAGON,HUMAN RECOMB 1 MG INJ IM PRN (00:13)
[2018-12-24] MEDS ORDERED: HYDRALAZINE HCL INJ/PF 20 MG/1 ML SDV IV PRN (00:14)
[2018-12-24] MEDS ORDERED: LEVOFLOXACIN 500 MG/D5W RTU 500 MG/100 ML RTUPB IV ONE (01:00)
[2018-12-24] MEDS ORDERED: METHYLPREDNISOLONE INJ 40 MG/1 ML SDV IV SCH ×2 (06:00→22:00)
[2018-12-24] MEDS: NORMAL SALINE 1000 ML 1,000 ML IV PRN (06:43)
--- NOTE | 2018-12-24 07:41 | EKG REPORT ---
SEVERITY:- OTHERWISE NORMAL ECG - SINUS TACHYCARDIA BORDERLINE RIGHT AXIS DEVIATION : Confirmed by: Guillermo Pham MD 24-Dec-2018 07:40:50
[2018-12-24] MEDS ORDERED: FLUTICASONE NASAL SPRAY 50 MCG/SPRY 120 SPRAY/16 GM NASL PRN (07:51)
[2018-12-24] MEDS: INSULIN LISPRO 100 UNIT/ML 3 ML VIAL SUBCUT SCH ×5 (08:27→21:56)
[2018-12-24] MEDS: IPRATROPIUM/ALBUTEROL 0.5-2.5 MG/3 ML AMPUL NEB SCH ×4 (08:45→19:58)
[2018-12-24] MEDS: FUROSEMIDE 20 MG TABLET PO SCH (08:59)
[2018-12-24] MEDS: ASPIRIN 81 MG TABLET, ENT COATED PO SCH (10:10)
[2018-12-24] MEDS: DILTIAZEM HCL 120 MG CAP.SR.24H PO SCH (10:10)
[2018-12-24] MEDS: FLUTICASONE/VILANTEROL 100-25 MCG/DOSE IH SCH (10:10)
[2018-12-24] MEDS: LACTOBACILLUS ACIDOPHILUS 250 MG TAB PO SCH ×2 (10:10→17:36)
[2018-12-24] MEDS: LISINOPRIL 5 MG TABLET PO SCH (10:10)
[2018-12-24] MEDS: INSULIN GLARGINE,HUM.REC.ANLOG 1,000 UNIT/10 ML VIAL SUBCUT SCH ×2 (10:11→22:08)
[2018-12-24] MEDS: ENOXAPARIN SODIUM INJ 40 MG/0.4 ML DISP.SYRIN SUBCUT SCH (10:11)
--- NOTE | 2018-12-24 12:01 | RADIOLOGY REPORT (SQ) ---
EXAM DESCRIPTION: NM LUNG VENT/PERF SCAN COMPLETED DATE/TIME: 12/24/2018 11:46 am REASON FOR STUDY: sob COMPARISON: Chest radiograph, 12/23/2018 RADIONUCLIDE AND DOSE: 5.4 millicuries TC-99m MAA Intravenous 30.1 millicuries TC-99m DTPA Inhaled aerosol TECHNIQUE: Anterior and posterior views of the lungs acquired post ventilation of DTPA aerosol. Eig ht matching views of the lungs acquired following injection of MAA. LIMITATIONS: Patient was unable to maintain seal around mask and took shallow breaths, limiting vent ilation examination. FINDINGS: VENTILATION: Anterior and posterior ventilation images are submitted. There is tracheal c ontamination and pulmonary photopenia due to poor inhalation of aerosol. No significant areas of foc al photopenia. PERFUSION: Perfusion images with normal homogenous activity and no wedge-shaped or segmental defects. No ventilation-perfusion mismatches. OTHER: Cardiomegaly. IMPRESSION: Limited examination as detailed above. Within this limitation, no evidence of ventilati on or perfusion defect. Very low probability for pulmonary embolism by modified PIOPED criteria. TECHNICAL DOCUMENTATION: JOB ID: [id number] [employer]- All Rights Reserved Reading location - IP/workstation name: [email or web address]
[2018-12-24 13:30] LABS: ARTERIAL BLOOD BASE EXCESS 0.9 mmol/L; ARTERIAL BLOOD FIO2 1.5L; ARTERIAL BLOOD H2CO3 1.49 mmol/L (1.05-1.35); ARTERIAL BLOOD PCO2 49.5 mmHg (35-45); ARTERIAL BLOOD PH 7.36 (7.35-7.45); ARTERIAL BLOOD TOTAL CO2 28.5 mmol/L (23-27)
--- NOTE | 2018-12-24 15:00 | PDOC H&P ---
History of Present Illness Admission Date/PCP: 12/24/18 00:44 ARTEMIO KAMINSKI MD Patient complains of: Shortness of the breath History of Present Illness: ADÁN CHEUNG is a 53 year old male This is a 53-year-old male's with chronic respiratory failure COPD currently on BiPAP at night 3 L oxygen's history of the chronic smoker hypertension's hyperlipidemia multiple other comorbidity type 2 diabetes and top of that very noncompliance went to see pulmonary yesterday because of the shortness of the breath and change some medications but patient does not know what called the EMS because patient was very short of breath patient oxygen saturations 50%'s and patient's blood pressure was 220 brought to the emergency department put on the BiPAP and patient was started on nitro drips. After nitro drips patient's blood pressure is coming down and patient's blood pressures remained stable to 130 range patient's response very well with the BiPAP initial PCO2 was 7.26 PCO2 was elevated but same range for chronic respiratory failures. At this point decided to patient in IMCU when I saw her in IMCU patient was alert awake talking without any problems Patient is denied any chest pain to than any shortness of the breath No wheezing No cough Patient's mostly underlying he was some pulmonary hypertension's will last cardiology to see it We also consult the pulmonary for his available otherwise we will continues to current settings Discussed with the patient's family and the bedside including his brother regarding the patient's current conditions Past Medical History Cardiac Medical History: Reports: Hyperlipidema, Hypertension Denies: Coronary Artery Disease, Myocardial Infarction Pulmonary Medical History: Reports: Asthma, Bronchitis, Chronic Obstructive Pulmonary Disease (COPD), Pneumonia Denies: Tuberculosis Neurological Medical History: Denies: Seizures Endocrine Medical History: Reports: Diabetes Mellitus Type 2 GI Medical History: Denies: Cirrhosis, Crohn's Disease, Ulcerative Colitis Musculoskeltal Medical History: Denies: Arthritis Psychiatric Medical History: Reports: Depression Traumatic Medical History: Denies: Traumatic Brain Injury Hematology: Denies: Anemia Infectious Medical History: Denies: HIV Past Surgical History Past Surgical History: Reports: Cardiac Catheterization, Cholecystectomy, Orthopedic Surgery - R foot, Tonsillectomy Social History Lives with: Family Smoking Status: Unknown if Ever Smoked Frequency of Alcohol Use: None Hx Recreational Drug Use: No Drugs: None Hx Prescription Drug Abuse: No Family History Family History: Reviewed & Not Pertinent, COPD, Hypertension Parental Family History Reviewed: Yes Children Family History Reviewed: Yes Sibling(s) Family History Reviewed.: Yes Medication/Allergy Home Medications: Albuterol Sulfate [Proair HFA Inhalation Aerosol 8.5 gm MDI] 2 puff IH Q4HP PRN 08/31/18 Aspirin [Adult Low Dose Aspirin EC] 81 mg PO DAILY 08/31/18 Diltiazem HCl [Cardizem Cd 120 mg Capsule] 120 mg PO DAILY 08/31/18 Fluticasone Propionate [Flonase Nasal [place] 50 Mcg/[place] 16 gm] 1 spray NASL BIDP PRN 08/31/18 Fluticasone/Vilanterol [Breo Ellipta 100-25 Mcg INH] 1 puff IH DAILY 08/31/18 Gabapentin [Neurontin 100 mg Capsule] 100 mg PO Q8 08/31/18 Insulin Aspart [Novolog Flexpen] 5 units SQ MEALS 08/31/18 Tamsulosin HCl [Flomax 0.4 mg Cap.sr] 0.4 mg PO QPM 08/31/18 Atorvastatin Calcium [Lipitor 20 mg Tablet] 20 mg PO QHS 12/24/18 Furosemide [Lasix 20 mg Tablet] 10 mg PO QAM 12/24/18 Insulin Detemir [Levemir] 36 unit SQ BID 12/24/18 Lisinopril [Prinivil 5 mg Tablet] 2.5 mg PO DAILY 12/24/18 Allergies/Adverse Reactions: amoxicillin [Amoxicillin] Adverse Reaction (Verified 11/04/18 14:46) Hives Iodinated Contrast- Oral and IV Dye [IV Dye, Iodine Containing] Adverse Reaction (Verified 11/04/18 14:46) Hives Penicillins Adverse Reaction (Verified 11/04/18 14:46) Hives Apricots Adverse Reaction (Mild, Uncoded 11/04/18 14:46) Hives Review of Systems Constitutional: ABSENT: chills, fever(s), headache(s), weight gain, weight loss Eyes: ABSENT: visual disturbances Ears: ABSENT: hearing changes Cardiovascular: PRESENT: dyspnea on exertion. ABSENT: chest pain, edema, orthropnea, palpitations Respiratory: PRESENT: cough. ABSENT: hemoptysis Gastrointestinal: ABSENT: abdominal pain, constipation, diarrhea, hematemesis, hematochezia, nausea, vomiting Genitourinary: ABSENT: dysuria, hematuria Musculoskeletal: ABSENT: joint swelling Integumentary: ABSENT: rash, wounds Neurological: ABSENT: abnormal gait, abnormal speech, confusion, dizziness, focal weakness, syncope Psychiatric: ABSENT: anxiety, depression, homidical ideation, suicidal ideation Endocrine: ABSENT: cold intolerance, heat intolerance, menstrual abnormalities, polydipsia, polyuria Hematologic/Lymphatic: ABSENT: easy bleeding, easy bruising, lymphadenopathy Physical Exam Vital Signs: Temp Pulse Resp BP Pulse Ox 98.4 F 82 16 125/68 97 12/24/18 07:23 12/24/18 08:45 12/24/18 08:45 12/24/18 07:23 12/24/18 08:45 Intake & Output 12/23/18 12/24/18 12/25/18 06:59 06:59 06:59 Intake Total 1307 642 Output Total 650 Balance 657 642 Weight 112.9 kg General appearance: PRESENT: no acute distress, well-developed, well-nourished Head exam: PRESENT: atraumatic, normocephalic Eye exam: PRESENT: conjunctiva pink, EOMI, PERRLA. ABSENT: scleral icterus Ear exam: PRESENT: normal external ear exam Mouth exam: PRESENT: moist, tongue midline Neck exam: PRESENT: full ROM. ABSENT: carotid bruit, JVD, lymphadenopathy, thyromegaly Respiratory exam: PRESENT: clear to auscultation [place] Cardiovascular exam: PRESENT: RRR. ABSENT: diastolic murmur, rubs, systolic murmur Pulses: PRESENT: normal dorsalis pedis pul, +2 pedal pulses bilateral Vascular exam: PRESENT: normal capillary refill GI/Abdominal exam: PRESENT: normal bowel sounds, soft. ABSENT: distended, guarding, mass, organolmegaly, rebound, tenderness Rectal exam: PRESENT: deferred Extremities exam: ABSENT: pedal edema Musculoskeletal exam: PRESENT: ambulatory Neurological exam: PRESENT: alert, awake, oriented to person, oriented to place, oriented to time, oriented to situation, CN II-XII grossly intact. ABSENT: motor sensory deficit Psychiatric exam: PRESENT: appropriate affect, normal mood. ABSENT: homicidal ideation, suicidal ideation Skin exam: PRESENT: dry, intact, warm. ABSENT: cyanosis, rash Results Laboratory Results: 12/23/18 20:17 12/23/18 20:17 0612/23/18 12/23/18 20:17 20:17 20:17 WBC 12.4 H RBC 4.53 Hgb 14.0 Hct 41.6 MCV 92 MCH 30.9 MCHC 33.7 RDW 14.8 H Plt Count 172 Seg Neutrophils % 81.8 H Lymphocytes % 12.2 L Monocytes % 5.2 Eosinophils % 0.4 Basophils % 0.4 Absolute Neutrophils 10.2 H Absolute Lymphocytes 1.5 Absolute Monocytes 0.6 Absolute Eosinophils 0.1 Absolute Basophils 0.1 Carbonic Acid HCO3/H2CO3 Ratio ABG pH ABG pCO2 ABG pO2 ABG HCO3 ABG O2 Saturation ABG Base Excess VBG pH 7.22 L VBG pCO2 68.8 H* VBG HCO3 27.3 VBG Base Excess -2.2 FiO2 Sodium 136.6 L Potassium 5.5 H Chloride 101 Carbon Dioxide 24 Anion Gap 12 BUN 16 Creatinine 0.89 Est GFR ( Amer) > 60 Est GFR (Non-Af Amer) > 60 Glucose 369 H Calcium 9.5 Total Bilirubin 0.3 AST 15 L ALT 28 Alkaline Phosphatase 110 Total Protein 7.0 Albumin 4.4 Urine Color Urine Appearance Urine pH Ur Specific [place] Urine Protein Urine Glucose (UA) Urine Ketones Urine Blood Urine Nitrite Ur Leukocyte Esterase Urine WBC (Auto) Urine RBC (Auto) 12/23/18 12/23/18 12/24/18 21:15 23:27 13:15 WBC RBC Hgb Hct MCV MCH MCHC RDW Plt Count Seg Neutrophils % Lymphocytes % Monocytes % Eosinophils % Basophils % Absolute Neutrophils Absolute Lymphocytes Absolute Monocytes Absolute Eosinophils Absolute Basophils Carbonic Acid 1.69 H 1.49 H HCO3/H2CO3 Ratio 15:1 18:1 ABG pH 7.27 L 7.36 ABG pCO2 56.3 H 49.5 H ABG pO2 98.9 66.0 L ABG HCO3 25.4 H 27.0 H ABG O2 Saturation 96.6 92.0 L ABG Base Excess -2.3 0.9 VBG pH VBG pCO2 VBG HCO3 VBG Base Excess FiO2 50% 1.5L Sodium Potassium Chloride Carbon Dioxide Anion Gap BUN Creatinine Est GFR ( Amer) Est GFR (Non-Af Amer) Glucose Calcium Total Bilirubin AST ALT Alkaline Phosphatase Total Protein Albumin Urine Color STRAW Urine Appearance CLEAR Urine pH 5.0 Ur Specific [place] 1.016 Urine Protein 100 H Urine Glucose (UA) >=500 H Urine Ketones TRACE H Urine Blood SMALL H Urine Nitrite NEGATIVE Ur Leukocyte Esterase NEGATIVE Urine WBC (Auto) 1 Urine RBC (Auto) 0 12/23/18 12/23/18 12/23/18 20:17 20:17 20:17 Creatine Kinase 122 CK-MB (CK-2) 2.46 Troponin I < 0.012 NT-Pro-B Natriuret Pep 307 Impressions: Chest X-Ray 12/23/18 20:02 IMPRESSION: No evidence of acute cardiopulmonary disease. Lung Scan-VQ NM 12/24/18 00:00 IMPRESSION: Limited examination as detailed above. Within this limitation, no evidence of ventilation or perfusion defect. Very low probability for pulmonary embolism by modified PIOPED criteria. Assessment & Plan - Diagnosis (1) Acute and chronic respiratory failure with hypercapnia Is this a current diagnosis for this admission?: Yes Plan: After putting the BiPAP patient's pH is improving 7.36 PCO2 is also improving (2) COPD exacerbation Is this a current diagnosis for this admission?: Yes Plan: Continues to nebulizer treatment and Solu-Medrol (3) Diabetes mellitus type 2 in obese Is this a current diagnosis for this admission?: Yes Plan: Is a sliding scale some continues current medications (4) Hypertension Qualifiers: Hypertension type: essential hypertension Qualified Code(s): I10 - Essential (primary) hypertension Is this a current diagnosis for this admission?: Yes Plan: All stable (5) Hypoxia Is this a current diagnosis for this admission?: Yes Plan: This VQ scan is all negative Continues to current medications Patient have a chronic sleep apnea with a chronic respiratory failure requiring BiPAP continues current BiPAP (6) Noncompliance Is this a current diagnosis for this admission?: Yes (7) Peripheral edema Is this a current diagnosis for this admission?: Yes Plan: We will ask the cardiology to further evaluate for any underlying heart condit ions with underlying pulmonary hypertension's (8) Sleep apnea syndrome Qualifiers: Sleep apnea type: unspecified type Qualified Code(s): G47.30 - Sleep apnea, unspecified Is this a current diagnosis for this admission?: Yes - Time Time Spent: 30 to 50 Minutes Medications reviewed and adjusted accordingly: Yes Anticipated discharge: Other Within: Other - Inpatient Certification Based on my medical assessment, after consideration of the patient's comorbid ities, presenting symptoms, or acuity I expect that the services needed warrant INPATIENT care.: Yes I certify that my determination is in accordance with my understanding of Medicare's requirements for reasonable and necessary INPATIENT services [42 CFR 412.3e].: Yes Medical Necessity: Need Close Monitoring Due to Risk of Patient Decompensation Post Hospital Care: D/C [employer]iler [employer] Worker Documentation - Plan Summary Plan Summary: Again patient is a very noncompliance So many hospital admissions last time patient was admitted sent to the discharged to the nursing facilities was doing okay but as soon as the patient's went home patients pretty much back to the hospitals we will consult the equipment planner I do not believe the patient to use the BiPAP as directed
[2018-12-24] MEDS: GABAPENTIN 100 MG CAPSULE PO SCH ×2 (15:55→22:02)
[2018-12-24] MEDS ORDERED: (PENDING PHARMACY ID) (Insulin Aspart [Novolog Flexpen] 5 UNITS) SQ SCH (17:00)
[2018-12-24] MEDS: TAMSULOSIN HCL 0.4 MG CAP.SR.24H PO SCH (17:36)
[2018-12-24] MEDS ORDERED: INSULIN DETEMIR 36 UNIT SQ SCH (18:00)
[2018-12-24] MEDS: LEVOFLOXACIN 500 MG/D5W RTU 500 MG/100 ML RTUPB IV SCH (21:58)
[2018-12-24] MEDS: ATORVASTATIN CALCIUM 20 MG TABLET PO SCH (22:02)
[2018-12-25] MEDS: GABAPENTIN 100 MG CAPSULE PO SCH ×3 (05:06→22:23)
[2018-12-25 05:26] LABS: HEMATOCRIT 35.2 % (37.9-51.0); MEAN CORPUSCULAR HEMOGLOBIN 30.7 pg (27.0-33.4); MEAN CORPUSCULAR HGB CONC 33.8 g/dL (32.0-36.0); MEAN CORPUSCULAR VOLUME 91 fl (80-97); PLATELET COUNT 154 10^3/uL (150-450); RED BLOOD COUNT 3.87 10^6/uL (4.35-5.55); WHITE BLOOD COUNT 10.9 10^3/uL (4.0-10.5)
[2018-12-25 05:42] LABS: ANION GAP 9 (5-19); BLOOD UREA NITROGEN 37 mg/dL (7-20); CALCIUM 8.5 mg/dL (8.4-10.2); CARBON DIOXIDE 27 mmol/L (22-30); CHLORIDE 99 mmol/L (98-107); GLUCOSE 335 mg/dL (75-110); SODIUM 134.5 mmol/L (137-145)
[2018-12-25 05:52] LABS: HEMOGLOBIN 11.9 g/dL (13.5-17.0)
[2018-12-25] MEDS: IPRATROPIUM/ALBUTEROL 0.5-2.5 MG/3 ML AMPUL NEB SCH ×4 (07:46→20:28)
[2018-12-25] MEDS: FUROSEMIDE 20 MG TABLET PO SCH (07:47)
[2018-12-25] MEDS: INSULIN LISPRO 100 UNIT/ML 3 ML VIAL SUBCUT SCH ×7 (07:47→22:33)
[2018-12-25] MEDS: ASPIRIN 81 MG TABLET, ENT COATED PO SCH (10:21)
[2018-12-25] MEDS: INSULIN GLARGINE,HUM.REC.ANLOG 1,000 UNIT/10 ML VIAL SUBCUT SCH ×2 (10:21→22:24)
[2018-12-25] MEDS: DILTIAZEM HCL 120 MG CAP.SR.24H PO SCH (10:21)
[2018-12-25] MEDS: LISINOPRIL 5 MG TABLET PO SCH (10:21)
[2018-12-25] MEDS: LACTOBACILLUS ACIDOPHILUS 250 MG TAB PO SCH ×2 (10:21→18:11)
[2018-12-25] MEDS: ENOXAPARIN SODIUM INJ 40 MG/0.4 ML DISP.SYRIN SUBCUT SCH (10:22)
[2018-12-25] MEDS: FLUTICASONE/VILANTEROL 100-25 MCG/DOSE IH SCH (10:22)
[2018-12-25 13:24] LABS: ARTERIAL BLOOD BASE EXCESS -0.5 mmol/L; ARTERIAL BLOOD H2CO3 1.49 mmol/L (1.05-1.35); ARTERIAL BLOOD HCO3 25.9 mmol/L (20-24); ARTERIAL BLOOD O2 SATURATION 96.5 % (94-98); ARTERIAL BLOOD PCO2 49.4 mmHg (35-45); ARTERIAL BLOOD PH 7.34 (7.35-7.45); ARTERIAL BLOOD PO2 91.6 mmHg (80-100); ARTERIAL BLOOD TOTAL CO2 27.4 mmol/L (23-27)
[2018-12-25 13:26] LABS: ARTERIAL BLOOD FIO2 5LPM
--- NOTE | 2018-12-25 13:31 | PDOC PROGRESS REPORT ---
Subjective Progress Note for:: 12/25/18 Subjective:: Patient is currently doing fair Patient's ABG is also improving and PCO2 is also improving Patient's denied less short of breath no wheezing no chest pain Patient had a echo done pending reports per Dr. Anderson Reason For Visit: COPD Physical Exam Vital Signs: Temp Pulse Resp BP Pulse Ox 98.8 F 73 17 109/37 L 92 12/25/18 08:29 12/25/18 12:01 12/25/18 12:01 12/25/18 08:29 12/25/18 12:01 Intake & Output 12/24/18 12/25/18 12/26/18 06:59 06:59 06:59 Intake Total 1307 3389 100 Output Total 650 2950 Balance 657 439 100 Weight 112.9 kg 113.6 kg General appearance: PRESENT: no acute distress, well-developed, well-nourished Head exam: PRESENT: atraumatic, normocephalic Eye exam: PRESENT: conjunctiva pink, EOMI, PERRLA. ABSENT: scleral icterus Ear exam: PRESENT: normal external ear exam Mouth exam: PRESENT: moist, tongue midline Neck exam: PRESENT: full ROM. ABSENT: carotid bruit, JVD, lymphadenopathy, thyromegaly Respiratory exam: PRESENT: clear to auscultation [place] Cardiovascular exam: PRESENT: RRR. ABSENT: diastolic murmur, rubs, systolic murmur Pulses: PRESENT: normal dorsalis pedis pul, +2 pedal pulses bilateral Vascular exam: PRESENT: normal capillary refill GI/Abdominal exam: PRESENT: normal bowel sounds, soft. ABSENT: distended, guarding, mass, organolmegaly, rebound, tenderness Rectal exam: PRESENT: deferred Extremities exam: ABSENT: pedal edema Musculoskeletal exam: PRESENT: ambulatory Neurological exam: PRESENT: alert, awake, oriented to person, oriented to place, oriented to time, oriented to situation, CN II-XII grossly intact. ABSENT: motor sensory deficit Psychiatric exam: PRESENT: appropriate affect, normal mood. ABSENT: homicidal ideation, suicidal ideation Skin exam: PRESENT: dry, intact, warm. ABSENT: cyanosis, rash Results Laboratory Results: 12/25/18 04:53 12/25/18 04:53 12/24/18 12/25/18 12/25/18 13:15 04:53 04:53 WBC 10.9 H RBC 3.87 L Hgb 11.9 L D Hct 35.2 L MCV 91 MCH 30.7 MCHC 33.8 RDW 14.0 Plt Count 154 Carbonic Acid 1.49 H HCO3/H2CO3 Ratio 18:1 ABG pH 7.36 ABG pCO2 49.5 H ABG pO2 66.0 L ABG HCO3 27.0 H ABG O2 Saturation 92.0 L ABG Base Excess 0.9 FiO2 1.5L Sodium 134.5 L Potassium 5.0 Chloride 99 Carbon Dioxide 27 Anion Gap 9 BUN 37 H Creatinine 1.02 Est GFR ( Amer) > 60 Est GFR (Non-Af Amer) > 60 Glucose 335 H Calcium 8.5 12/25/18 12:55 WBC RBC Hgb Hct MCV MCH MCHC RDW Plt Count Carbonic Acid 1.49 H HCO3/H2CO3 Ratio 17:1 ABG pH 7.34 L ABG pCO2 49.4 H ABG pO2 91.6 ABG HCO3 25.9 H ABG O2 Saturation 96.5 ABG Base Excess -0.5 FiO2 5LPM Sodium Potassium Chloride Carbon Dioxide Anion Gap BUN Creatinine Est GFR ( Amer) Est GFR (Non-Af Amer) Glucose Calcium 12/23/18 12/23/18 12/23/18 20:17 20:17 20:17 Creatine Kinase 122 CK-MB (CK-2) 2.46 Troponin I < 0.012 NT-Pro-B Natriuret Pep 307 Impressions: Chest X-Ray 12/23/18 20:02 IMPRESSION: No evidence of acute cardiopulmonary disease. Lung Scan-VQ NM 12/24/18 00:00 IMPRESSION: Limited examination as detailed above. Within this limitation, no evidence of ventilation or perfusion defect. Very low probability for pulmonary embolism by modified PIOPED criteria. Assessment & Plan - Diagnosis (1) Acute and chronic respiratory failure with hypercapnia Is this a current diagnosis for this admission?: Yes Plan: Currently all improving continues to use the BiPAP (2) COPD exacerbation Is this a current diagnosis for this admission?: Yes Plan: We will discontinues to steroid while not wheezing continues to nebulizer treatments (3) Diabetes mellitus type 2 in obese Is this a current diagnosis for this admission?: Yes Plan: Patient's blood sugar is elevated most likely due to the steroid While patient is feeling better with the lung crockett we will discontinues to steroid continues to current insulin (4) Hypertension Qualifiers: Hypertension type: essential hypertension Qualified Code(s): I10 - Essential (primary) hypertension Is this a current diagnosis for this admission?: Yes Plan: All stable (5) Hypoxia Is this a current diagnosis for this admission?: Yes Plan: This VQ scan is negative most likely chronic respiratory failure and sleep apnea (6) Noncompliance Is this a current diagnosis for this admission?: Yes (7) Peripheral edema Is this a current diagnosis for this admission?: Yes Plan: Cussed with the Dr. Gentile to do the echo to rule out any pulmonary hypertension's (8) Sleep apnea syndrome Qualifiers: Sleep apnea type: unspecified type Qualified Code(s): G47.30 - Sleep apnea, unspecified Is this a current diagnosis for this admission?: Yes - Time Time Spent with patient: 15-24 minutes Medications reviewed and adjusted accordingly: Yes Anticipated discharge: Home Within: Other - Plan Summary Plan Summary: Current medications
[2018-12-25] MEDS: TAMSULOSIN HCL 0.4 MG CAP.SR.24H PO SCH (18:11)
[2018-12-25] MEDS: ATORVASTATIN CALCIUM 20 MG TABLET PO SCH (22:23)
[2018-12-25] MEDS: LEVOFLOXACIN 500 MG/D5W RTU 500 MG/100 ML RTUPB IV SCH (22:24)
[2018-12-26 04:47] LABS: HEMATOCRIT 38.3 % (37.9-51.0); HEMOGLOBIN 12.7 g/dL (13.5-17.0); MEAN CORPUSCULAR HEMOGLOBIN 30.3 pg (27.0-33.4); MEAN CORPUSCULAR HGB CONC 33.3 g/dL (32.0-36.0); MEAN CORPUSCULAR VOLUME 91 fl (80-97); PLATELET COUNT 150 10^3/uL (150-450); RED BLOOD COUNT 4.21 10^6/uL (4.35-5.55); RED CELL DISTRIBUTION WIDTH 14.4 % (11.5-14.0); WHITE BLOOD COUNT 8.7 10^3/uL (4.0-10.5)
[2018-12-26 05:13] LABS: ANION GAP 5 (5-19); BLOOD UREA NITROGEN 35 mg/dL (7-20); CALCIUM 8.5 mg/dL (8.4-10.2); CARBON DIOXIDE 30 mmol/L (22-30); CHLORIDE 102 mmol/L (98-107); GLUCOSE 154 mg/dL (75-110); POTASSIUM 4.1 mmol/L (3.6-5.0); SODIUM 137.4 mmol/L (137-145)
[2018-12-26] MEDS: GABAPENTIN 100 MG CAPSULE PO SCH ×3 (06:42→21:26)
[2018-12-26] MEDS: IPRATROPIUM/ALBUTEROL 0.5-2.5 MG/3 ML AMPUL NEB SCH ×3 (07:53→16:22)
[2018-12-26] MEDS: DILTIAZEM HCL 120 MG CAP.SR.24H PO SCH (09:37)
[2018-12-26] MEDS: FUROSEMIDE 20 MG TABLET PO SCH (09:37)
[2018-12-26] MEDS: LACTOBACILLUS ACIDOPHILUS 250 MG TAB PO SCH ×2 (09:37→17:14)
[2018-12-26] MEDS: ASPIRIN 81 MG TABLET, ENT COATED PO SCH (09:38)
[2018-12-26] MEDS: LISINOPRIL 5 MG TABLET PO SCH (09:38)
[2018-12-26] MEDS: FLUTICASONE/VILANTEROL 100-25 MCG/DOSE IH SCH (09:38)
[2018-12-26] MEDS: INSULIN LISPRO 100 UNIT/ML 3 ML VIAL SUBCUT SCH ×7 (09:39→21:26)
[2018-12-26] MEDS: ENOXAPARIN SODIUM INJ 40 MG/0.4 ML DISP.SYRIN SUBCUT SCH (09:39)
[2018-12-26] MEDS: INSULIN GLARGINE,HUM.REC.ANLOG 1,000 UNIT/10 ML VIAL SUBCUT SCH ×2 (09:40→21:27)
[2018-12-26] MEDS ORDERED: IPRATROPIUM/ALBUTEROL 0.5-2.5 MG/3 ML AMPUL NEB PRN (17:11)
--- NOTE | 2018-12-26 17:11 | PDOC PROGRESS REPORT ---
Subjective Progress Note for:: 12/26/18 Subjective:: Patient remain on supplemental oxygen and BiPAP support. No chest pain. No fever or chills. No nausea, vomiting, or abdominal pain. Reason For Visit: COPD Physical Exam Vital Signs: Temp Pulse Resp BP Pulse Ox 98.5 F 77 16 122/47 L 96 12/26/18 10:53 12/26/18 16:22 12/26/18 16:22 12/26/18 10:53 12/26/18 16:22 Intake & Output 12/25/18 12/26/18 12/27/18 06:59 06:59 06:59 Intake Total 3389 1090 1060 Output Total 2950 1950 575 Balance 439 -860 485 Weight 113.6 kg 114.4 kg General appearance: PRESENT: mild distress - on supplemental oxygen therapy. Head exam: PRESENT: atraumatic, normocephalic Eye exam: PRESENT: conjunctiva pink. ABSENT: scleral icterus Ear exam: PRESENT: normal external ear exam Mouth exam: PRESENT: moist Respiratory exam: PRESENT: decreased breath sounds - at lung bases Cardiovascular exam: PRESENT: RRR. ABSENT: diastolic murmur, rubs, systolic murmur Vascular exam: ABSENT: pallor GI/Abdominal exam: PRESENT: normal bowel sounds, soft. ABSENT: distended, guarding, mass, organolmegaly, rebound, tenderness Extremities exam: ABSENT: pedal edema Musculoskeletal exam: PRESENT: deformity - related to multiple joints involvement with arthritis. Neurological exam: PRESENT: alert, awake, oriented to person, oriented to place, oriented to time, oriented to situation, CN II-XII grossly intact. ABSENT: mo tor sensory deficit Psychiatric exam: PRESENT: appropriate affect, normal mood. ABSENT: homicidal ideation, suicidal ideation Skin exam: PRESENT: dry, warm Results Laboratory Results: 12/26/18 04:21 12/26/18 04:21 12/26/18 12/26/18 04:21 04:21 WBC 8.7 RBC 4.21 L Hgb 12.7 L Hct 38.3 MCV 91 MCH 30.3 MCHC 33.3 RDW 14.4 H Plt Count 150 Sodium 137.4 Potassium 4.1 Chloride 102 Carbon Dioxide 30 Anion Gap 5 BUN 35 H Creatinine 0.94 Est GFR ( Amer) > 60 Est GFR (Non-Af Amer) > 60 Glucose 154 H Calcium 8.5 12/23/18 12/23/18 12/23/18 20:17 20:17 20:17 Creatine Kinase 122 CK-MB (CK-2) 2.46 Troponin I < 0.012 NT-Pro-B Natriuret Pep 307 Impressions: Chest X-Ray 12/23/18 20:02 IMPRESSION: No evidence of acute cardiopulmonary disease. Lung Scan-VQ NM 12/24/18 00:00 IMPRESSION: Limited examination as detailed above. Within this limitation, no evidence of ventilation or perfusion defect. Very low probability for pulmonary embolism by modified PIOPED criteria. Assessment & Plan - Diagnosis (1) Acute and chronic respiratory failure with hypercapnia Is this a current diagnosis for this admission?: Yes Plan: See covering attending physician orders for details of care plan. (2) COPD with acute exacerbation Is this a current diagnosis for this admission?: Yes Plan: See covering attending physician orders for details of care plan. (3) Diabetes mellitus type 2 in obese Is this a current diagnosis for this admission?: Yes Plan: See covering attending physician orders for details of care plan. (4) Hypertension Qualifiers: Hypertension type: essential hypertension Qualified Code(s): I10 - Essential (primary) hypertension Is this a current diagnosis for this admission?: Yes Plan: See covering attending physician orders for details of care plan. (5) Hyperlipidemia Qualifiers: Hyperlipidemia type: unspecified Qualified Code(s): E78.5 - Hyperlipidemia, unspecified Is this a current diagnosis for this admission?: Yes Plan: See covering attending physician orders for details of care plan. (6) BMI 40.0-44.9, adult Is this a current diagnosis for this admission?: Yes Plan: See covering attending physician orders for details of care plan. - Time Time Spent with patient: 25-34 minutes Medications reviewed and adjusted accordingly: Yes Anticipated discharge: SNF Within: Other - Inpatient Certification Based on my medical assessment, after consideration of the patient's comor bidities, presenting symptoms, or acuity I expect that the services needed warrant INPATIENT care.: Yes I certify that my determination is in accordance with my understanding of Medicare's requirements for reasonable and necessary INPATIENT services [42 CFR 412.3e].: Yes Medical Necessity: Significant Comorbidiites Make Outpatient Treatment Too Risky, Need Close Monitoring Due to Risk of Patient Decompensation, Need For IV Fluids, Need For Continuous Telemetry Monitoring, Need for Nebulizer Therapy and Monitoring of Response, Risk of Complication if Not Cared For in Hospital, Risk of Diagnosis Which Will Require Inpatient Eval/Care/Monitoring Post Hospital Care: D/C or Transfer Summary - Plan Summary Plan Summary: See covering attending physician orders for details of care plan.
[2018-12-26] MEDS: TAMSULOSIN HCL 0.4 MG CAP.SR.24H PO SCH (17:14)
[2018-12-26] MEDS: ATORVASTATIN CALCIUM 20 MG TABLET PO SCH (21:26)
[2018-12-26] MEDS: LEVOFLOXACIN 500 MG/D5W RTU 500 MG/100 ML RTUPB IV SCH (21:31)
[2018-12-26] MEDS: METOPROLOL TARTRATE 25 MG TABLET PO SCH (23:32)
[2018-12-27 00:35] LABS: TROPONIN I < 0.012 ng/mL
[2018-12-27 00:36] LABS: CREATINE KINASE MB 1.77 ng/mL (<4.55)
[2018-12-27] MEDS: GABAPENTIN 100 MG CAPSULE PO SCH ×3 (06:11→21:08)
[2018-12-27 07:36] LABS: HEMATOCRIT 39.8 % (37.9-51.0); HEMOGLOBIN 13.3 g/dL (13.5-17.0); MEAN CORPUSCULAR HEMOGLOBIN 30.3 pg (27.0-33.4); MEAN CORPUSCULAR HGB CONC 33.4 g/dL (32.0-36.0); MEAN CORPUSCULAR VOLUME 91 fl (80-97); PLATELET COUNT 161 10^3/uL (150-450); RED BLOOD COUNT 4.37 10^6/uL (4.35-5.55); RED CELL DISTRIBUTION WIDTH 14.4 % (11.5-14.0); WHITE BLOOD COUNT 5.9 10^3/uL (4.0-10.5)
[2018-12-27] MEDS: INSULIN LISPRO 100 UNIT/ML 3 ML VIAL SUBCUT SCH ×7 (08:07→21:11)
[2018-12-27 08:28] LABS: ANION GAP 6 (5-19); BLOOD UREA NITROGEN 28 mg/dL (7-20); CALCIUM 8.8 mg/dL (8.4-10.2); CARBON DIOXIDE 32 mmol/L (22-30); CHLORIDE 101 mmol/L (98-107); POTASSIUM 4.4 mmol/L (3.6-5.0); SODIUM 138.8 mmol/L (137-145)
[2018-12-27 08:33] LABS: GLUCOSE 65 mg/dL (75-110)
--- NOTE | 2018-12-27 08:39 | EKG REPORT ---
SEVERITY:- BORDERLINE ECG - SINUS RHYTHM BORDERLINE RIGHT AXIS DEVIATION BORDERLINE T ABNORMALITIES, ANT-LAT LEADS : Confirmed by: Guillermo Pham MD 27-Dec-2018 08:38:17
[2018-12-27] MEDS: ASPIRIN 81 MG TABLET, ENT COATED PO SCH (09:30)
[2018-12-27] MEDS: FUROSEMIDE 20 MG TABLET PO SCH (09:30)
[2018-12-27] MEDS: LISINOPRIL 5 MG TABLET PO SCH (09:30)
[2018-12-27] MEDS: METOPROLOL TARTRATE 25 MG TABLET PO SCH ×2 (09:30→21:07)
[2018-12-27] MEDS: LACTOBACILLUS ACIDOPHILUS 250 MG TAB PO SCH ×2 (09:30→17:15)
[2018-12-27] MEDS: ENOXAPARIN SODIUM INJ 40 MG/0.4 ML DISP.SYRIN SUBCUT SCH (09:31)
[2018-12-27] MEDS: FLUTICASONE/VILANTEROL 100-25 MCG/DOSE IH SCH (09:31)
[2018-12-27] MEDS: DILTIAZEM HCL 120 MG CAP.SR.24H PO SCH (09:31)
[2018-12-27] MEDS: INSULIN GLARGINE,HUM.REC.ANLOG 1,000 UNIT/10 ML VIAL SUBCUT SCH ×2 (09:31→21:05)
--- NOTE | 2018-12-27 16:21 | PDOC PROGRESS REPORT ---
Subjective Progress Note for:: 12/27/18 Subjective:: Patient denied any chest pain. He remain on supplemental oxygen and BiPAP support. No fever or chills. No nausea, vomiting, or abdominal pain. Reason For Visit: COPD Physical Exam Vital Signs: Temp Pulse Resp BP Pulse Ox 98.4 F 62 16 101/49 L 95 12/27/18 15:12 12/27/18 15:35 12/27/18 15:35 12/27/18 15:12 12/27/18 15:35 Intake & Output 12/26/18 12/27/18 12/28/18 06:59 06:59 06:59 Intake Total 1090 1982 960 Output Total 1950 1900 1050 Balance -860 82 -90 Weight 114.4 kg 114.9 kg Physical Exam: General appearance: PRESENT: mild distress - on supplemental oxygen therapy. Head exam: PRESENT: atraumatic, normocephalic Eye exam: PRESENT: conjunctiva pink. ABSENT: pallor, scleral icterus Ear exam: PRESENT: normal external ear exam Mouth exam: PRESENT: moist Respiratory exam: PRESENT: decreased breath sounds - at lung bases Cardiovascular exam: PRESENT: RRR. ABSENT: diastolic murmur, rubs, systolic murmur GI/Abdominal exam: PRESENT: normal bowel sounds, soft. ABSENT: distended, guarding, mass, organomegaly, rebound, tenderness Extremities exam: ABSENT: pedal edema Musculoskeletal exam: PRESENT: deformity - related to multiple joints involvement with arthritis. Neurological exam: PRESENT: alert, awake, oriented to person, oriented to place, oriented to time, oriented to situation, CN II-XII grossly intact. ABSENT: motor sensory deficit Psychiatric exam: PRESENT: appropriate affect, normal mood. ABSENT: homicidal ideation, suicidal ideation Skin exam: PRESENT: dry, warm Results Laboratory Results: 12/27/18 07:10 12/27/18 07:10 12/27/18 12/27/18 12/27/18 05:55 05:55 07:10 WBC Cancelled RBC Cancelled Hgb Cancelled Hct Cancelled MCV Cancelled MCH Cancelled MCHC Cancelled RDW Cancelled Plt Count Cancelled Sodium Cancelled 138.8 Potassium Cancelled 4.4 Chloride Cancelled 101 Carbon Dioxide Cancelled 32 H Anion Gap Cancelled 6 BUN Cancelled 28 H Creatinine Cancelled 0.82 Est GFR ( Amer) Cancelled > 60 Est GFR (Non-Af Amer) Cancelled > 60 Glucose Cancelled 65 L Calcium Cancelled 8.8 12/27/18 07:10 WBC 5.9 RBC 4.37 Hgb 13.3 L Hct 39.8 MCV 91 MCH 30.3 MCHC 33.4 RDW 14.4 H Plt Count 161 Sodium Potassium Chloride Carbon Dioxide Anion Gap BUN Creatinine Est GFR ( Amer) Est GFR (Non-Af Amer) Glucose Calcium 12/23/18 12/23/18 12/23/18 20:17 20:17 20:17 Creatine Kinase 122 CK-MB (CK-2) 2.46 Troponin I < 0.012 NT-Pro-B Natriuret Pep 307 12/26/18 12/26/18 22:25 22:25 Creatine Kinase 58 CK-MB (CK-2) 1.77 Troponin I < 0.012 NT-Pro-B Natriuret Pep Impressions: Chest X-Ray 12/23/18 20:02 IMPRESSION: No evidence of acute cardiopulmonary disease. Lung Scan-VQ NM 12/24/18 00:00 IMPRESSION: Limited examination as detailed above. Within this limitation, no evidence of ventilation or perfusion defect. Very low probability for pulmonary embolism by modified PIOPED criteria. Assessment & Plan - Diagnosis (1) Acute and chronic respiratory failure with hypercapnia Is this a current diagnosis for this admission?: Yes (2) COPD with acute exacerbation Is this a current diagnosis for this admission?: Yes (3) Diabetes mellitus type 2 in obese Is this a current diagnosis for this admission?: Yes (4) Hypertension Qualifiers: Hypertension type: essential hypertension Qualified Code(s): I10 - Essential (primary) hypertension Is this a current diagnosis for this admission?: Yes (5) Hyperlipidemia Qualifiers: Hyperlipidemia type: unspecified Qualified Code(s): E78.5 - Hyperlipidemia, unspecified Is this a current diagnosis for this admission?: Yes (6) BMI 40.0-44.9, adult Is this a current diagnosis for this admission?: Yes - Time Time Spent with patient: 25-34 minutes Medications reviewed and adjusted accordingly: Yes Anticipated discharge: Home with Homehealth, SNF Within: Other - Inpatient Certification Based on my medical assessment, after consideration of the patient's comorbidities, presenting symptoms, or acuity I expect that the services needed warrant INPATIENT care.: Yes I certify that my determination is in accordance with my understanding of Medicare's requirements for reasonable and necessary INPATIENT services [42 CFR 412.3e].: Yes Medical Necessity: Significant Comorbidiites Make Outpatient Treatment Too Risky, Need Close Monitoring Due to Risk of Patient Decompensation, Need For Continuous Telemetry Monitoring, Need for Nebulizer Therapy and Monitoring of Response, Risk of Complication if Not Cared For in Hospital, Risk of Diagnosis Which Will Require Inpatient Eval/Care/Monitoring Post Hospital Care: D/C [employer] Resource Analyst Documentation - Plan Summary Plan Summary: Continue current medication management.
[2018-12-27] MEDS: TAMSULOSIN HCL 0.4 MG CAP.SR.24H PO SCH (17:15)
--- NOTE | 2018-12-27 20:54 | XCELERA REPORT ---
[address] [address] Transthoracic Echocardiogram Report Name: ADÁN CHEUNG Age: 53 yrs Gender: Male : 1965 Patient Status: Inpatient Patient Location: [address] [place], [place] [address] Study Date: 12/24/2018 11:39 AM Height: 64 in Weight: 255 lb BSA: 2.2 m2 Procedure: A two-dimensional transthoracic echocardiogram with color flow and Doppler was performed. Study Quality: Poor. Poor endocardial visualisation and poor doppler interogation. Reason For Study: Pulm HTN History: PULMONARY HYPERTENSION. Ordering Physician: ARTEMIO KAMINSKI Performed By: Dianna Flood Interpretation Summary Poor endocardial visualisation and poor doppler interogation. The left ventricle is grossly normal size. Probably no LVH and Probably no regional wall motion aabnormality. The left ventricular ejection fraction is within normal limits. LV EF is 60% Doppler measurements suggest normal left ventricular diastolic function Unable to assess for ASD,VSDmor PFO. The right ventricle is not well visualized secondary to technical limitations Right atrium not well visualized secondary to technical limitations The left atrial size is normal. There is no evidence of mitral valve prolapse. There is no mitral valve stenosis. There is no mitral regurgitation noted. There is no aortic valve stenosis There is no LVOT obstruction. No aortic regurgitation is present. There is no tricuspid stenosis. No tricuspid regurgitation. Unable to calculate RVSP / Pulmonary hypertension due to lack of TR jet. There is no pericardial effusion. MMode/2D Measurements & Calculations RVDd: 3.8 cm LVIDd: 5.8 cm FS: 40.8 % Ao root diam: 2.9 cm IVSd: 0.89 cm LVIDs: 3.4 cm EDV(Teich): 165.3 ml Ao root area: 6.6 cm2 LVPWd: 0.82 cm ESV(Teich): 48.2 ml LA dimension: 3.5 cm EF(Teich): 70.9 % Doppler Measurements & Calculations MV E max cornelius: MV dec time: Ao V2 max: LV V1 max P.1 cm/sec 0.20 sec 173.7 cm/sec 5.9 mmHg MV A max cornelius: Ao max PG: LV V1 max: 102.7 cm/sec 12.1 mmHg 121.9 cm/sec MV E/A: 1.0 PA V2 max: 101.2 cm/sec PA max P.1 mmHg Left Ventricle The left ventricle is grossly normal size. Probably no LVH and Probably no regional wall motion aabnormality. The left ventricular ejection fraction is within normal limits. LV EF is 60%. Doppler measurements suggest normal left ventricular diastolic function. Unable to assess for ASD,VSDmor PFO. Right Ventricle The right ventricle is not well visualized secondary to technical limitations. Atria Right atrium not well visualized secondary to technical limitations. The left atrial size is normal. Mitral Valve There is no evidence of mitral valve prolapse. There is no mitral valve stenosis. There is no mitral regurgitation noted. Aortic Valve There is no aortic valvular vegetation. There is no aortic valve stenosis. There is no LVOT obstruction. No aortic regurgitation is present. Tricuspid Valve There is no tricuspid stenosis. No tricuspid regurgitation. Unable to calculate RVSP / Pulmonary hypertension due to lack of TR jet. Pulmonic Valve The pulmonic valve is not well visualized. Great Vessels The aortic root is not well visualized. Effusions There is no pericardial effusion. : ARTEMIO KAMINSKI > Tejal Gentile
[2018-12-27] MEDS: LEVOFLOXACIN 500 MG/D5W RTU 500 MG/100 ML RTUPB IV SCH (21:05)
[2018-12-27] MEDS: ATORVASTATIN CALCIUM 20 MG TABLET PO SCH (21:06)
[2018-12-28] MEDS: GABAPENTIN 100 MG CAPSULE PO SCH ×3 (06:37→21:36)
--- NOTE | 2018-12-28 08:51 | PDOC PROGRESS REPORT ---
Subjective Progress Note for:: 12/28/18 Subjective:: Patient is currently doing same No chest pain no short of breath According to the nursing staff and respiratory therapy patient is very noncompliance to wearing the BiPAP When patient have a trilogy at home but patient does not know how to use it and I believe his noncompliance to not able to use it Discussed with the patient about compliance and important to use the BiPAP every day when they lay down and at nighttime Patients have a very noncompliance issues Discussed with the planner chief for further assist Reason For Visit: COPD Physical Exam Vital Signs: Temp Pulse Resp BP Pulse Ox 97.8 F 70 18 95/58 L 91 L 12/28/18 07:36 12/28/18 08:09 12/28/18 08:09 12/28/18 07:36 12/28/18 08:09 Intake & Output 12/27/18 12/28/18 12/29/18 06:59 06:59 06:59 Intake Total 1982 1762 Output Total 1900 2680 Balance 82 -918 Weight 114.9 kg 113.7 kg General appearance: PRESENT: no acute distress, well-developed, well-nourished Head exam: PRESENT: atraumatic, normocephalic Eye exam: PRESENT: conjunctiva pink, EOMI, PERRLA. ABSENT: scleral icterus Ear exam: PRESENT: normal external ear exam Mouth exam: PRESENT: moist, tongue midline Neck exam: PRESENT: full ROM. ABSENT: carotid bruit, JVD, lymphadenopathy, thyromegaly Respiratory exam: PRESENT: clear to auscultation allyson Cardiovascular exam: PRESENT: RRR. ABSENT: diastolic murmur, rubs, systolic murmur Pulses: PRESENT: normal dorsalis pedis pul, +2 pedal pulses bilateral Vascular exam: PRESENT: normal capillary refill GI/Abdominal exam: PRESENT: normal bowel sounds, soft. ABSENT: distended, guarding, mass, organolmegaly, rebound, tenderness Rectal exam: PRESENT: deferred Musculoskeletal exam: PRESENT: ambulatory Neurological exam: PRESENT: alert, awake, oriented to person, oriented to place, oriented to time, oriented to situation, CN II-XII grossly intact. ABSENT: motor sensory deficit Psychiatric exam: PRESENT: appropriate affect, normal mood. ABSENT: homicidal ideation, suicidal ideation Skin exam: PRESENT: dry, intact, warm. ABSENT: cyanosis, rash Results Laboratory Results: 12/27/18 07:10 12/27/18 07:10 12/23/18 12/23/18 12/23/18 20:17 20:17 20:17 Creatine Kinase 122 CK-MB (CK-2) 2.46 Troponin I < 0.012 NT-Pro-B Natriuret Pep 307 12/26/18 12/26/18 22:25 22:25 Creatine Kinase 58 CK-MB (CK-2) 1.77 Troponin I < 0.012 NT-Pro-B Natriuret Pep Impressions: Chest X-Ray 12/23/18 20:02 IMPRESSION: No evidence of acute cardiopulmonary disease. Lung Scan-VQ NM 12/24/18 00:00 IMPRESSION: Limited examination as detailed above. Within this limitation, no evidence of ventilation or perfusion defect. Very low probability for pulmonary embolism by modified PIOPED criteria. Assessment & Plan - Diagnosis (1) Acute and chronic respiratory failure with hypercapnia Is this a current diagnosis for this admission?: Yes Plan: There is a very noncompliance to wearing the BiPAP (2) COPD exacerbation Is this a current diagnosis for this admission?: Yes Plan: We will discontinues to steroid while not wheezing continues to nebulizer treatments (3) Diabetes mellitus type 2 in obese Is this a current diagnosis for this admission?: Yes Plan: Patient's blood sugar is elevated most likely due to the steroid While patient is feeling better with the lung crockett we will discontinues to steroid continues to current insulin (4) Hypertension Qualifiers: Hypertension type: essential hypertension Qualified Code(s): I10 - Essential (primary) hypertension Is this a current diagnosis for this admission?: Yes Plan: All stable (5) Hypoxia Is this a current diagnosis for this admission?: Yes Plan: This VQ scan is negative most likely chronic respiratory failure and sleep apnea (6) Noncompliance Is this a current diagnosis for this admission?: Yes (7) Peripheral edema Is this a current diagnosis for this admission?: Yes (8) Sleep apnea syndrome Qualifiers: Sleep apnea type: unspecified type Qualified Code(s): G47.30 - Sleep apnea, unspecified Is this a current diagnosis for this admission?: Yes - Time Time Spent with patient: 15-24 minutes Medications reviewed and adjusted accordingly: Yes Within: Other - Plan Summary Plan Summary: As above see other MD orders we will repeat the ABG
[2018-12-28] MEDS: DILTIAZEM HCL 120 MG CAP.SR.24H PO SCH (09:15)
[2018-12-28] MEDS: FUROSEMIDE 20 MG TABLET PO SCH (09:15)
[2018-12-28] MEDS: LACTOBACILLUS ACIDOPHILUS 250 MG TAB PO SCH ×2 (09:15→17:38)
[2018-12-28] MEDS: ASPIRIN 81 MG TABLET, ENT COATED PO SCH (09:16)
[2018-12-28] MEDS: LISINOPRIL 5 MG TABLET PO SCH (09:16)
[2018-12-28] MEDS: ENOXAPARIN SODIUM INJ 40 MG/0.4 ML DISP.SYRIN SUBCUT SCH (09:16)
[2018-12-28] MEDS: METOPROLOL TARTRATE 25 MG TABLET PO SCH ×2 (09:16→21:36)
[2018-12-28] MEDS: INSULIN GLARGINE,HUM.REC.ANLOG 1,000 UNIT/10 ML VIAL SUBCUT SCH ×2 (09:16→21:38)
[2018-12-28] MEDS: INSULIN LISPRO 100 UNIT/ML 3 ML VIAL SUBCUT SCH ×7 (09:20→21:39)
[2018-12-28] MEDS: FLUTICASONE/VILANTEROL 100-25 MCG/DOSE IH SCH (09:41)
[2018-12-28] MEDS: TAMSULOSIN HCL 0.4 MG CAP.SR.24H PO SCH (17:38)
[2018-12-28] MEDS: LEVOFLOXACIN 500 MG/D5W RTU 500 MG/100 ML RTUPB IV SCH ×2 (21:35→22:00)
[2018-12-28] MEDS: ATORVASTATIN CALCIUM 20 MG TABLET PO SCH (21:35)
[2018-12-29] MEDS: GABAPENTIN 100 MG CAPSULE PO SCH ×3 (05:22→21:25)
[2018-12-29] MEDS: INSULIN LISPRO 100 UNIT/ML 3 ML VIAL SUBCUT SCH ×7 (07:43→21:22)
[2018-12-29 07:53] LABS: ARTERIAL BLOOD BASE EXCESS 9.6 mmol/L; ARTERIAL BLOOD H2CO3 2.21 mmol/L (1.05-1.35); ARTERIAL BLOOD HCO3 38.3 mmol/L (20-24); ARTERIAL BLOOD O2 SATURATION 86.2 % (94-98); ARTERIAL BLOOD PH 7.34 (7.35-7.45); ARTERIAL BLOOD PO2 56.4 mmHg (80-100); ARTERIAL BLOOD TOTAL CO2 40.6 mmol/L (23-27)
[2018-12-29 07:55] LABS: ARTERIAL BLOOD FIO2 40%; ARTERIAL BLOOD PCO2 73.3 mmHg (35-45)
[2018-12-29] MEDS: FUROSEMIDE 20 MG TABLET PO SCH (07:57)
[2018-12-29 08:42] LABS: ABSOLUTE EOSINOPHILS # (AUTO) 0.2 10^3/uL (0.0-0.6); ABSOLUTE LYMPHOCYTES (AUTO) 1.8 10^3/uL (0.5-4.7); ABSOLUTE MONOCYTES (AUTO) 0.4 10^3/uL (0.1-1.4); ABSOLUTE NEUT (AUTO) 3.5 10^3/uL (1.7-8.2); BASOPHILS % (AUTO) 0.7 % (0-2); EOSINOPHILS % (AUTO) 3.7 % (0-6); HEMATOCRIT 37.1 % (37.9-51.0); HEMOGLOBIN 12.5 g/dL (13.5-17.0); LYMPHOCYTES % (AUTO) 30.9 % (13-45); MEAN CORPUSCULAR HEMOGLOBIN 30.4 pg (27.0-33.4); MEAN CORPUSCULAR HGB CONC 33.7 g/dL (32.0-36.0); MEAN CORPUSCULAR VOLUME 90 fl (80-97); PLATELET COUNT 154 10^3/uL (150-450); RED BLOOD COUNT 4.12 10^6/uL (4.35-5.55); RED CELL DISTRIBUTION WIDTH 14.4 % (11.5-14.0); SEGMENTED NEUTROPHILS % (AUTO) 58.7 % (42-78); TOTAL CELLS COUNTED % (AUTO) 100 %
[2018-12-29 09:11] LABS: ANION GAP 9 (5-19); BLOOD UREA NITROGEN 37 mg/dL (7-20); CALCIUM 8.8 mg/dL (8.4-10.2); CARBON DIOXIDE 30 mmol/L (22-30); CHLORIDE 99 mmol/L (98-107); GLUCOSE 223 mg/dL (75-110); POTASSIUM 4.5 mmol/L (3.6-5.0); SODIUM 137.6 mmol/L (137-145)
[2018-12-29] MEDS: LISINOPRIL 5 MG TABLET PO SCH (09:38)
[2018-12-29] MEDS: DILTIAZEM HCL 120 MG CAP.SR.24H PO SCH (09:38)
[2018-12-29] MEDS: LACTOBACILLUS ACIDOPHILUS 250 MG TAB PO SCH ×2 (09:38→17:57)
[2018-12-29] MEDS: ASPIRIN 81 MG TABLET, ENT COATED PO SCH (09:38)
[2018-12-29] MEDS: ENOXAPARIN SODIUM INJ 40 MG/0.4 ML DISP.SYRIN SUBCUT SCH (09:39)
[2018-12-29] MEDS: INSULIN GLARGINE,HUM.REC.ANLOG 1,000 UNIT/10 ML VIAL SUBCUT SCH ×2 (09:39→21:25)
[2018-12-29] MEDS: FLUTICASONE/VILANTEROL 100-25 MCG/DOSE IH SCH (09:39)
--- NOTE | 2018-12-29 11:33 | PDOC PROGRESS REPORT ---
Subjective Progress Note for:: 12/29/18 Reason For Visit: COPD Patient is currently doing fair Patient is denied any chest pain to than any shortness of the breath Patient's PCO2 still elevated due to the chronic respiratory failure and noncompliance with the using the BiPAP Patient still requiring 4 L nasal cannula usually at home for later Physical Exam Vital Signs: Temp Pulse Resp BP Pulse Ox 97.3 F 75 13 113/57 L 97 12/29/18 07:29 12/29/18 09:23 12/29/18 09:23 12/29/18 07:29 12/29/18 09:23 Intake & Output 12/28/18 12/29/18 12/30/18 06:59 06:59 06:59 Intake Total 1762 1164 Output Total 2680 200 Balance -918 964 Weight 113.7 kg 112.4 kg General appearance: PRESENT: no acute distress, well-developed, well-nourished Head exam: PRESENT: atraumatic, normocephalic Eye exam: PRESENT: conjunctiva pink, EOMI, PERRLA. ABSENT: scleral icterus Ear exam: PRESENT: normal external ear exam Mouth exam: PRESENT: moist, tongue midline Neck exam: PRESENT: full ROM. ABSENT: carotid bruit, JVD, lymphadenopathy, thyromegaly Respiratory exam: PRESENT: decreased breath sounds Cardiovascular exam: PRESENT: RRR. ABSENT: diastolic murmur, rubs, systolic murmur Pulses: PRESENT: normal dorsalis pedis pul, +2 pedal pulses bilateral Vascular exam: PRESENT: normal capillary refill GI/Abdominal exam: PRESENT: normal bowel sounds, soft. ABSENT: distended, guarding, mass, organolmegaly, rebound, tenderness Rectal exam: PRESENT: deferred Musculoskeletal exam: PRESENT: ambulatory Neurological exam: PRESENT: alert, awake, oriented to person, oriented to place, oriented to time, oriented to situation, CN II-XII grossly intact. ABSENT: motor sensory deficit Psychiatric exam: PRESENT: appropriate affect, normal mood. ABSENT: homicidal ideation, suicidal ideation Skin exam: PRESENT: dry, intact, warm. ABSENT: cyanosis, rash Results Laboratory Results: 12/29/18 08:25 12/29/18 08:25 12/29/18 12/29/18 12/29/18 07:37 08:25 08:25 WBC 6.0 RBC 4.12 L Hgb 12.5 L Hct 37.1 L MCV 90 MCH 30.4 MCHC 33.7 RDW 14.4 H Plt Count 154 Seg Neutrophils % 58.7 Lymphocytes % 30.9 Monocytes % 6.0 Eosinophils % 3.7 Basophils % 0.7 Absolute Neutrophils 3.5 Absolute Lymphocytes 1.8 Absolute Monocytes 0.4 Absolute Eosinophils 0.2 Absolute Basophils 0.0 Carbonic Acid 2.21 H HCO3/H2CO3 Ratio 17:1 ABG pH 7.34 L ABG pCO2 73.3 H* ABG pO2 56.4 L ABG HCO3 38.3 H ABG O2 Saturation 86.2 L ABG Base Excess 9.6 FiO2 40% Sodium 137.6 Potassium 4.5 Chloride 99 Carbon Dioxide 30 Anion Gap 9 BUN 37 H Creatinine 0.92 Est GFR ( Amer) > 60 Est GFR (Non-Af Amer) > 60 Glucose 223 H Calcium 8.8 12/24/18 04:17 Blood Blood Culture - Final NO GROWTH IN 5 DAYS 12/24/18 01:22 Blood Blood Culture - Final NO GROWTH IN 5 DAYS 12/23/18 12/23/18 12/23/18 20:17 20:17 20:17 Creatine Kinase 122 CK-MB (CK-2) 2.46 Troponin I < 0.012 NT-Pro-B Natriuret Pep 307 12/26/18 12/26/18 22:25 22:25 Creatine Kinase 58 CK-MB (CK-2) 1.77 Troponin I < 0.012 NT-Pro-B Natriuret Pep Impressions: Chest X-Ray 12/23/18 20:02 IMPRESSION: No evidence of acute cardiopulmonary disease. Lung Scan-VQ NM 12/24/18 00:00 IMPRESSION: Limited examination as detailed above. Within this limitation, no evidence of ventilation or perfusion defect. Very low probability for pulmonary embolism by modified PIOPED criteria. Assessment & Plan - Diagnosis (1) Acute and chronic respiratory failure with hypercapnia Is this a current diagnosis for this admission?: Yes Plan: There is a very noncompliance to wearing the BiPAP (2) COPD exacerbation Is this a current diagnosis for this admission?: Yes Plan: We will discontinues to steroid while not wheezing continues to nebulizer treatments (3) Diabetes mellitus type 2 in obese Is this a current diagnosis for this admission?: Yes Plan: Patient's blood sugar is elevated most likely due to the steroid While patient is feeling better with the lung crockett we will discontinues to steroid continues to current insulin (4) Hypertension Qualifiers: Hypertension type: essential hypertension Qualified Code(s): I10 - Essential (primary) hypertension Is this a current diagnosis for this admission?: Yes Plan: All stable (5) Hypoxia Is this a current diagnosis for this admission?: Yes Plan: This VQ scan is negative most likely chronic respiratory failure and sleep apnea (6) Noncompliance Is this a current diagnosis for this admission?: Yes (7) Peripheral edema Is this a current diagnosis for this admission?: Yes Plan: Cussed with the Dr. Gentile to do the echo to rule out any pulmonary hypertension's (8) Sleep apnea syndrome Qualifiers: Sleep apnea type: unspecified type Qualified Code(s): G47.30 - Sleep apnea, unspecified Is this a current diagnosis for this admission?: Yes - Time Time Spent with patient: 15-24 minutes Medications reviewed and adjusted accordingly: Yes Anticipated discharge: Home Within: Other - Plan Summary Plan Summary: Continues use the BiPAP
[2018-12-29] MEDS: TAMSULOSIN HCL 0.4 MG CAP.SR.24H PO SCH (17:58)
[2018-12-29] MEDS: ATORVASTATIN CALCIUM 20 MG TABLET PO SCH (21:24)
[2018-12-30 04:11] LABS: ABSOLUTE EOSINOPHILS # (AUTO) 0.2 10^3/uL (0.0-0.6); ABSOLUTE LYMPHOCYTES (AUTO) 1.9 10^3/uL (0.5-4.7); ABSOLUTE MONOCYTES (AUTO) 0.4 10^3/uL (0.1-1.4); ABSOLUTE NEUT (AUTO) 3.9 10^3/uL (1.7-8.2); BASOPHILS % (AUTO) 0.6 % (0-2); EOSINOPHILS % (AUTO) 2.7 % (0-6); HEMATOCRIT 36.4 % (37.9-51.0); HEMOGLOBIN 12.3 g/dL (13.5-17.0); LYMPHOCYTES % (AUTO) 29.9 % (13-45); MEAN CORPUSCULAR HEMOGLOBIN 30.5 pg (27.0-33.4); MEAN CORPUSCULAR HGB CONC 33.8 g/dL (32.0-36.0); MEAN CORPUSCULAR VOLUME 90 fl (80-97); MONOCYTES % (AUTO) 6.8 % (3-13); PLATELET COUNT 154 10^3/uL (150-450); RED BLOOD COUNT 4.04 10^6/uL (4.35-5.55); RED CELL DISTRIBUTION WIDTH 14.4 % (11.5-14.0); TOTAL CELLS COUNTED % (AUTO) 100 %; WHITE BLOOD COUNT 6.4 10^3/uL (4.0-10.5)
[2018-12-30 04:36] LABS: BLOOD UREA NITROGEN 38 mg/dL (7-20); CALCIUM 8.9 mg/dL (8.4-10.2); GLUCOSE 159 mg/dL (75-110); POTASSIUM 4.5 mmol/L (3.6-5.0)
[2018-12-30 04:45] LABS: ANION GAP 5 (5-19); CARBON DIOXIDE 33 mmol/L (22-30); CHLORIDE 99 mmol/L (98-107); SODIUM 137.1 mmol/L (137-145)
[2018-12-30] MEDS: GABAPENTIN 100 MG CAPSULE PO SCH ×3 (05:12→22:15)
[2018-12-30] MEDS: INSULIN LISPRO 100 UNIT/ML 3 ML VIAL SUBCUT SCH ×7 (07:25→22:14)
--- NOTE | 2018-12-30 08:46 | PDOC PROGRESS REPORT ---
Subjective Progress Note for:: 12/30/18 Subjective:: Patient is currently doing same No chest pain no short of breath According to the nursing staff and respiratory therapy patient is very noncompliance to wearing the BiPAP When patient have a trilogy at home but patient does not know how to use it and I believe his noncompliance to not able to use it Discussed with the patient about compliance and important to use the BiPAP every day when they lay down and at nighttime Patients have a very noncompliance issues Discussed with the planner chief for further assist Reason For Visit: COPD Physical Exam Vital Signs: Temp Pulse Resp BP Pulse Ox 97.3 F 55 L 20 104/64 92 12/30/18 03:00 12/30/18 07:00 12/30/18 03:00 12/30/18 03:00 12/30/18 03:00 Intake & Output 12/29/18 12/30/18 12/31/18 06:59 06:59 06:59 Intake Total 1164 1220 Output Total 200 600 Balance 964 620 Weight 112.4 kg 112.5 kg General appearance: PRESENT: no acute distress, well-developed, well-nourished Head exam: PRESENT: atraumatic, normocephalic Eye exam: PRESENT: conjunctiva pink, EOMI, PERRLA. ABSENT: scleral icterus Ear exam: PRESENT: normal external ear exam Mouth exam: PRESENT: moist, tongue midline Neck exam: PRESENT: full ROM. ABSENT: carotid bruit, JVD, lymphadenopathy, thyromegaly Respiratory exam: PRESENT: clear to auscultation allyson Cardiovascular exam: PRESENT: RRR. ABSENT: diastolic murmur, rubs, systolic murmur Pulses: PRESENT: normal dorsalis pedis pul, +2 pedal pulses bilateral Vascular exam: PRESENT: normal capillary refill GI/Abdominal exam: PRESENT: normal bowel sounds, soft. ABSENT: distended, gu arding, mass, organolmegaly, rebound, tenderness Rectal exam: PRESENT: deferred Musculoskeletal exam: PRESENT: ambulatory Neurological exam: PRESENT: alert, awake, oriented to person, oriented to place, oriented to time, oriented to situation, CN II-XII grossly intact. ABSENT: motor sensory deficit Psychiatric exam: PRESENT: appropriate affect, normal mood. ABSENT: homicidal ideation, suicidal ideation Skin exam: PRESENT: dry, intact, warm. ABSENT: cyanosis, rash Results Laboratory Results: 12/30/18 03:48 12/30/18 03:48 12/29/18 12/29/18 12/30/18 08:25 08:25 03:48 WBC 6.0 6.4 RBC 4.12 L 4.04 L Hgb 12.5 L 12.3 L Hct 37.1 L 36.4 L MCV 90 90 MCH 30.4 30.5 MCHC 33.7 33.8 RDW 14.4 H 14.4 H Plt Count 154 154 Seg Neutrophils % 58.7 60.0 Lymphocytes % 30.9 29.9 Monocytes % 6.0 6.8 Eosinophils % 3.7 2.7 Basophils % 0.7 0.6 Absolute Neutrophils 3.5 3.9 Absolute Lymphocytes 1.8 1.9 Absolute Monocytes 0.4 0.4 Absolute Eosinophils 0.2 0.2 Absolute Basophils 0.0 0.0 Sodium 137.6 Potassium 4.5 Chloride 99 Carbon Dioxide 30 Anion Gap 9 BUN 37 H Creatinine 0.92 Est GFR ( Amer) > 60 Est GFR (Non-Af Amer) > 60 Glucose 223 H Calcium 8.8 12/30/18 03:48 WBC RBC Hgb Hct MCV MCH MCHC RDW Plt Count Seg Neutrophils % Lymphocytes % Monocytes % Eosinophils % Basophils % Absolute Neutrophils Absolute Lymphocytes Absolute Monocytes Absolute Eosinophils Absolute Basophils Sodium 137.1 Potassium 4.5 Chloride 99 Carbon Dioxide 33 H Anion Gap 5 BUN 38 H Creatinine 0.98 Est GFR ( Amer) > 60 Est GFR (Non-Af Amer) > 60 Glucose 159 H Calcium 8.9 12/24/18 04:17 Blood Blood Culture - Final NO GROWTH IN 5 DAYS 12/23/18 12/23/18 12/23/18 20:17 20:17 20:17 Creatine Kinase 122 CK-MB (CK-2) 2.46 Troponin I < 0.012 NT-Pro-B Natriuret Pep 307 12/26/18 12/26/18 22:25 22:25 Creatine Kinase 58 CK-MB (CK-2) 1.77 Troponin I < 0.012 NT-Pro-B Natriuret Pep Impressions: Chest X-Ray 12/23/18 20:02 IMPRESSION: No evidence of acute cardiopulmonary disease. Lung Scan-VQ NM 12/24/18 00:00 IMPRESSION: Limited examination as detailed above. Within this limitation, no evidence of ventilation or perfusion defect. Very low probability for pulmonary embolism by modified PIOPED criteria. Assessment & Plan - Diagnosis (1) Acute and chronic respiratory failure with hypercapnia Is this a current diagnosis for this admission?: Yes Plan: There is a very noncompliance to wearing the BiPAP (2) COPD exacerbation Is this a current diagnosis for this admission?: Yes Plan: We will discontinues to steroid while not wheezing continues to nebulizer treatments (3) Diabetes mellitus type 2 in obese Is this a current diagnosis for this admission?: Yes Plan: Patient's blood sugar is elevated most likely due to the steroid While patient is feeling better with the lung crockett we will discontinues to steroid continues to current insulin (4) Hypertension Qualifiers: Hypertension type: essential hypertension Qualified Code(s): I10 - Essential (primary) hypertension Is this a current diagnosis for this admission?: Yes Plan: All stable Stop the beta-timo because of the severe COPD and patients feel better (5) Hypoxia Is this a current diagnosis for this admission?: Yes Plan: This VQ scan is negative most likely chronic respiratory failure and sleep apnea (6) Noncompliance Is this a current diagnosis for this admission?: Yes (7) Peripheral edema Is this a current diagnosis for this admission?: Yes Plan: Cussed with the Dr. Gentile to do the echo to rule out any pulmonary hypertension's (8) Sleep apnea syndrome Qualifiers: Sleep apnea type: unspecified type Qualified Code(s): G47.30 - Sleep apnea, unspecified Is this a current diagnosis for this admission?: Yes - Time Time Spent with patient: 15-24 minutes Medications reviewed and adjusted accordingly: Yes Anticipated discharge: SNF Within: Other - Plan Summary Plan Summary: stable
[2018-12-30] MEDS: FUROSEMIDE 20 MG TABLET PO SCH (08:53)
[2018-12-30] MEDS: LISINOPRIL 5 MG TABLET PO SCH (09:05)
[2018-12-30] MEDS: DILTIAZEM HCL 120 MG CAP.SR.24H PO SCH (09:05)
[2018-12-30] MEDS: LACTOBACILLUS ACIDOPHILUS 250 MG TAB PO SCH ×2 (09:05→17:04)
[2018-12-30] MEDS: FLUTICASONE/VILANTEROL 100-25 MCG/DOSE IH SCH (09:05)
[2018-12-30] MEDS: ENOXAPARIN SODIUM INJ 40 MG/0.4 ML DISP.SYRIN SUBCUT SCH (09:05)
[2018-12-30] MEDS: ASPIRIN 81 MG TABLET, ENT COATED PO SCH (09:05)
[2018-12-30] MEDS: INSULIN GLARGINE,HUM.REC.ANLOG 1,000 UNIT/10 ML VIAL SUBCUT SCH ×2 (09:11→22:15)
[2018-12-30] MEDS: TAMSULOSIN HCL 0.4 MG CAP.SR.24H PO SCH (17:04)
[2018-12-30] MEDS: ATORVASTATIN CALCIUM 20 MG TABLET PO SCH (22:15)
[2018-12-31] MEDS: GABAPENTIN 100 MG CAPSULE PO SCH ×2 (05:33→13:41)
[2018-12-31 05:45] LABS: ANION GAP 5 (5-19); BLOOD UREA NITROGEN 28 mg/dL (7-20); CALCIUM 9.1 mg/dL (8.4-10.2); CARBON DIOXIDE 34 mmol/L (22-30); CHLORIDE 100 mmol/L (98-107); GLUCOSE 117 mg/dL (75-110); POTASSIUM 4.1 mmol/L (3.6-5.0); SODIUM 139.1 mmol/L (137-145)
[2018-12-31] MEDS: INSULIN LISPRO 100 UNIT/ML 3 ML VIAL SUBCUT SCH ×4 (08:38→13:42)
[2018-12-31] MEDS: ENOXAPARIN SODIUM INJ 40 MG/0.4 ML DISP.SYRIN SUBCUT SCH (09:01)
[2018-12-31] MEDS: FUROSEMIDE 20 MG TABLET PO SCH (09:05)
[2018-12-31] MEDS: FLUTICASONE/VILANTEROL 100-25 MCG/DOSE IH SCH (09:05)
[2018-12-31] MEDS: INSULIN GLARGINE,HUM.REC.ANLOG 1,000 UNIT/10 ML VIAL SUBCUT SCH (09:06)
[2018-12-31] MEDS: LACTOBACILLUS ACIDOPHILUS 250 MG TAB PO SCH (09:06)
[2018-12-31] MEDS: DILTIAZEM HCL 120 MG CAP.SR.24H PO SCH (09:06)
[2018-12-31] MEDS: ASPIRIN 81 MG TABLET, ENT COATED PO SCH (09:06)
[2018-12-31] MEDS: LISINOPRIL 5 MG TABLET PO SCH (09:07)
--- NOTE | 2018-12-31 14:29 | PDOC DISCHARGE SUMMARY ---
General - Admit/Disc Date/PCP Admission Date/Primary Care Provider: 12/24/18 00:44 ARTEMIO KAMINSKI MD Discharge Date: 12/31/18 - Discharge Diagnosis (1) Acute and chronic respiratory failure with hypercapnia Is this a current diagnosis for this admission?: Yes Summary: Most likely due to the noncompliance from using the BiPAP due to the some family issues with the homeless issues (2) COPD exacerbation Is this a current diagnosis for this admission?: Yes Summary: Continues to nebulizer (3) Diabetes mellitus type 2 in obese Is this a current diagnosis for this admission?: Yes Summary: Currently all stable (4) Hypertension Is this a current diagnosis for this admission?: Yes Summary: Currently all stable (5) Hypoxia Is this a current diagnosis for this admission?: Yes Summary: Continues to 4 L nasal cannula and a continues to trilogy machine follow with the Dr. Regalado's (6) Noncompliance Is this a current diagnosis for this admission?: Yes Summary: Consult the meeting planner to help the patient out Try to send the patient to the rehab facilities but according to the meeting planner unable to go (7) Peripheral edema Is this a current diagnosis for this admission?: Yes (8) Sleep apnea syndrome Is this a current diagnosis for this admission?: Yes - Additional Information Discharge Diet: Diabetic Discharge Activity: Balance Activity w/Rest Home Medications: Albuterol Sulfate [Proair HFA Inhalation Aerosol 8.5 gm MDI] 2 puff IH Q4HP PRN 08/31/18 Aspirin [Adult Low Dose Aspirin EC] 81 mg PO DAILY 08/31/18 Diltiazem HCl [Cardizem Cd 120 mg Capsule] 120 mg PO DAILY 08/31/18 Fluticasone Propionate [Flonase Nasal [place] 50 Mcg/[place] 16 gm] 1 spray NASL BIDP PRN 08/31/18 Fluticasone/Vilanterol [Breo Ellipta 100-25 Mcg INH] 1 puff IH DAILY 08/31/18 Gabapentin [Neurontin 100 mg Capsule] 100 mg PO Q8 08/31/18 Insulin Aspart [Novolog Flexpen] 5 units SQ MEALS 08/31/18 Tamsulosin HCl [Flomax 0.4 mg Cap.sr] 0.4 mg PO QPM 08/31/18 Atorvastatin Calcium [Lipitor 20 mg Tablet] 20 mg PO QHS 12/24/18 Furosemide [Lasix 20 mg Tablet] 10 mg PO QAM 12/24/18 Insulin Detemir [Levemir] 36 unit SQ BID 12/24/18 Lisinopril [Prinivil 5 mg Tablet] 2.5 mg PO DAILY 12/24/18 History of Present Illness History of Present Illness: ADÁN CHEUNG is a 53 year old male This is a 53-year-old male's with chronic respiratory failure COPD currently on BiPAP at night 3 L oxygen's history of the chronic smoker hypertension's hyperlipidemia multiple other comorbidity type 2 diabetes and top of that very noncompliance went to see pulmonary yesterday because of the shortness of the breath and change some medications but patient does not know what called the EMS because patient was very short of breath patient oxygen saturations 50%'s and patient's blood pressure was 220 brought to the emergency department put on the BiPAP and patient was started on nitro drips. After nitro drips patient's blood pressure is coming down and patient's blood pressures remained stable to 130 range patient's response very well with the BiPAP initial PCO2 was 7.26 PCO2 was elevated but same range for chronic respiratory failures. At this point decided to patient in IMCU when I saw her in IMCU patient was alert awake talking without any problems Patient is denied any chest pain to than any shortness of the breath No wheezing No cough Patient's mostly underlying he was some pulmonary hypertension's will last cardiology to see it We also consult the pulmonary for his available otherwise we will continues to current settings Discussed with the patient's family and the bedside including his brother regarding the patient's current conditions Hospital Course Hospital Course: This is a 53-year-old male's very noncompliance came to the emergency department because of respiratory distress and short of breath and patient's as usual oxygen saturation is low because of not using the trilogy machine and not using the oxygen's The patient was put back on a BiPAP in patients his CO2 is coming down I think patient have a issue with the trilogy settings patient does not know exactly how to use it with extensive discussions with the respiratory and teach the patient and we also get the BiPAP setting from the Dr. Regalado's office Patient still feeling better after putting the BiPAP here but the issue with the patient's to going back to home and how compliance going to use it Try to send the patient rehab facility to get a bit more monitor but unable to go due to the insurance issues per meeting planner\discussed with the patient's and patient's close family member leonila wilhelm try to help the patient out but patients definitely need using the trilogy machine and oxygen all the times Patient otherwise doing well patient does not have any other issues patient is here because of the noncompliance Blood work chest x-ray is all stable Patient evidence PCO2 running 50-60 as per discussed with the patient's pulmonary pretty much consistent with a chronic respiratory failure Physical Exam Vital Signs: Temp Pulse Resp BP Pulse Ox 97.5 F 64 14 119/57 L 96 12/31/18 13:10 12/31/18 13:10 12/31/18 13:10 12/31/18 13:10 12/31/18 13:10 Intake & Output 12/30/18 12/31/18 01/01/19 06:59 06:59 06:59 Intake Total 1220 840 Output Total 600 450 Balance 620 390 Weight 112.5 kg 112.2 kg General appearance: PRESENT: no acute distress, well-developed, well-nourished Head exam: PRESENT: atraumatic, normocephalic Eye exam: PRESENT: conjunctiva pink, EOMI, PERRLA. ABSENT: scleral icterus Ear exam: PRESENT: normal external ear exam Mouth exam: PRESENT: moist, tongue midline Neck exam: PRESENT: full ROM. ABSENT: carotid bruit, JVD, lymphadenopathy, thyromegaly Respiratory exam: PRESENT: clear to auscultation allyson Cardiovascular exam: PRESENT: RRR. ABSENT: diastolic murmur, rubs, systolic murmur Pulses: PRESENT: normal dorsalis pedis pul, +2 pedal pulses bilateral Vascular exam: PRESENT: normal capillary refill GI/Abdominal exam: PRESENT: normal bowel sounds, soft. ABSENT: distended, guar ding, mass, organolmegaly, rebound, tenderness Rectal exam: PRESENT: deferred Neurological exam: PRESENT: alert, awake, oriented to person, oriented to place, oriented to time, oriented to situation, CN II-XII grossly intact. ABSENT: motor sensory deficit Psychiatric exam: PRESENT: appropriate affect, normal mood. ABSENT: homicidal ideation, suicidal ideation Skin exam: PRESENT: dry, intact, warm. ABSENT: cyanosis, rash Results Laboratory Results: 12/30/18 03:48 12/31/18 04:38 12/31/18 04:38 Sodium 139.1 Potassium 4.1 Chloride 100 Carbon Dioxide 34 H Anion Gap 5 BUN 28 H Creatinine 0.91 Est GFR ( Amer) > 60 Est GFR (Non-Af Amer) > 60 Glucose 117 H Calcium 9.1 12/23/18 12/23/18 12/23/18 20:17 20:17 20:17 Creatine Kinase 122 CK-MB (CK-2) 2.46 Troponin I < 0.012 NT-Pro-B Natriuret Pep 307 12/26/18 12/26/18 22:25 22:25 Creatine Kinase 58 CK-MB (CK-2) 1.77 Troponin I < 0.012 NT-Pro-B Natriuret Pep Impressions: Chest X-Ray 12/23/18 20:02 IMPRESSION: No evidence of acute cardiopulmonary disease. Lung Scan-VQ NM 12/24/18 00:00 IMPRESSION: Limited examination as detailed above. Within this limitation, no evidence of ventilation or perfusion defect. Very low probability for pulmonary embolism by modified PIOPED criteria. Qualifiers - * PATIENT BEING DISCHARGED WITH ANY OF THE FOLLOWING DIAGNOSIS: No VTE patient discharged on overlapping Therapy?: Yes Acute Heart Failure - Is this a Heart Failure Patient?: No Plan Time Spent: Greater than 30 Minutes - Follow with the pulmonary in 1 week Arrange the home health
[2018-12-31 14:43] VITALS: BP 119/66
== END 2018-12-31 16:05 | disposition home or self-care (01) | DRG 189 ==
LOC: ER 20:01 → EH 12-24 00:44 → 3W 12-24 03:17
PROVIDERS: ADMIT Family Medicine; ATTEND Family Medicine
PROC: 5A09557 Assistance with Respiratory Ventilation, Greater than 96 Consecutive Hours, Continuous Positive Airway Pressure (ICD-10-PCS; principal; 2018-12-23)
DX: J96.22 Acute and chronic respiratory failure with hypercapnia (principal); J44.1 Chronic obstructive pulmonary disease with (acute) exacerbation; Z68.41 Body mass index [BMI] 40.0-44.9, adult; E66.9 Obesity, unspecified; I10 Essential (primary) hypertension; E11.9 Type 2 diabetes mellitus without complications; G47.30 Sleep apnea, unspecified; E78.5 Hyperlipidemia, unspecified; I27.20 Pulmonary hypertension, unspecified; F17.210 Nicotine dependence, cigarettes, uncomplicated; Z91.19 Patient's noncompliance with other medical treatment and regimen; Z59.0 Homelessness; Z79.82 Long term (current) use of aspirin; Z79.899 Other long term (current) drug therapy; Z79.4 Long term (current) use of insulin; Z99.81 Dependence on supplemental oxygen; Z83.6 Family history of other diseases of the respiratory system; Z88.1 Allergy status to other antibiotic agents; Z91.041 Radiographic dye allergy status; Z88.0 Allergy status to penicillin; Z91.018 Allergy to other foods
CPT/HCPCS: 36415; 36600; 71045; 78582; 80048; 80053; 81001; 82550; 82553; 82803; 82962; 83880; 84484; 85025; 85027; 87040; 93005; 93010; 93306; 94640; 94660; 96361; 96365; 96366; 96375; 99291; A9540; A9567; J1650; J1815; J1940; J1956; J2920; J2930; J3475; J3490; J7030; J7620; Q9969

== ENCOUNTER 2019-03-15 12:54 | Inpatient (IN) | payer MEDICARE, MEDICAID ==
[2019-03-15] MEDS ORDERED: ALBUTEROL SULFATE 0.083% NEB 2.5 MG/3 ML AMPUL NEB ONE (13:03)
--- NOTE | 2019-03-15 13:07 | ER Document Report ---
ED General - General Chief Complaint: Respiratory Distress Stated Complaint: RESPIRATORY DISTRESS Time Seen by Provider: 03/15/19 13:02 Primary Care Provider: ARTEMIO KAMINSKI MD [Primary Care Provider] - Follow up as needed TRAVEL OUTSIDE OF THE [place] IN LAST 30 DAYS: No - HPI Notes: Patient arrives via EMS for respiratory distress. Patient has a history of COPD has been intubated 3 times in his lifetime due to COPD. He states since last night he has been having worsening shortness of breath. EMS provided him 3 2.5 mg duo nebulizers, magnesium, Solu-Medrol, and 0.3 mg of epinephrine. Was placed on CPAP. - Related Data Allergies/Adverse Reactions: amoxicillin [Amoxicillin] Adverse Reaction (Verified 11/04/18 14:46) Hives Iodinated Contrast Media [IV Dye, Iodine Containing] Adverse Reaction (Verified 11/04/18 14:46) Hives Penicillins Adverse Reaction (Verified 11/04/18 14:46) Hives Apricots Adverse Reaction (Mild, Uncoded 11/04/18 14:46) Hives Past Medical History - Social History Smoking Status: Current Some Day Smoker Family History: Reviewed & Not Pertinent, COPD, Hypertension - Past Medical History Cardiac Medical History: Reports: Hx Hypercholesterolemia, Hx Hypertension Denies: Hx Coronary Artery Disease, Hx Heart Attack Pulmonary Medical History: Reports: Hx Asthma, Hx Bronchitis, Hx COPD, Hx Pneumonia Denies: Hx Tuberculosis Neurological Medical History: Denies: Hx Cerebrovascular Accident, Hx Seizures Endocrine Medical History: Reports: Hx Diabetes Mellitus Type 2 Renal/ Medical History: Denies: Hx Peritoneal Dialysis GI Medical History: Denies: Hx Cirrhosis, Hx Crohn's Disease, Hx Ulcerative Colitis Musculoskeletal Medical History: Denies Hx Arthritis Psychiatric Medical History: Reports: Hx Depression Traumatic Medical History: Denies: Hx Traumatic Brain Injury Infectious Medical History: Denies: Hx HIV Past Surgical History: Reports: Hx Abdominal Surgery - herniax3, Hx Cardiac Catheterization, Hx Cholecystectomy, Hx Orthopedic Surgery - R foot, Hx Tonsillectomy - Immunizations Hx Diphtheria, Pertussis, Tetanus Vaccination: Yes Hx Pneumococcal Vaccination: 04/20/13 Physical Exam - Vital signs Vitals: Resp Pulse Ox 28 H 97 03/15/19 12:58 03/15/19 12:58 - General General appearance: Appears well, Other - No acute distress - HEENT Head: Normocephalic, Atraumatic - Respiratory Respiratory status: Other - Tight breath sounds bilaterally - Cardiovascular Rhythm: Regular Heart sounds: Normal auscultation - Abdominal Inspection: Normal - Distended obese abdomen positive bowel sounds - Back Back: Normal, Nontender - Extremities General lower extremity: Other - +1 bilateral pitting edema - Neurological Neuro grossly intact: Yes Cognition: Normal Orientation: AAOx4 Course - Re-evaluation Re-evalutation: 03/15/19 15:25 Patient will be admitted to Dr. Kaminski - Vital Signs Vital signs: Temp Pulse Resp BP Pulse Ox 98.1 F 18 154/74 H 92 03/15/19 13:42 03/15/19 15:01 03/15/19 15:01 03/15/19 15:01 - Laboratory Result Diagrams: 03/15/19 12:58 03/15/19 12:58 Laboratory results interpreted by me: 03/15/19 03/15/19 03/15/19 12:58 12:58 13:59 RBC 4.25 L Hgb 13.2 L RDW 15.5 H Sodium 136.1 L Chloride 97 L Carbon Dioxide 32 H Glucose 236 H Magnesium 8.6 H* 2.4 H D AST 16 L Total Protein 6.2 L Discharge - Discharge Clinical Impression: COPD exacerbation Left lower lobe pneumonia Qualifiers: Pneumonia type: due to unspecified organism Qualified Code(s): J18.1 - Lobar pneumonia, unspecified organism Condition: Fair Disposition: ADMITTED INPATIENT Admitting Provider: David Unit Admitted: IMCU Referrals: ARTEMIO KAMINSKI MD [Primary Care Provider] - Follow up as needed
[2019-03-15 13:14] LABS: ABSOLUTE EOSINOPHILS # (AUTO) 0.2 10^3/uL (0.0-0.6); ABSOLUTE MONOCYTES (AUTO) 0.6 10^3/uL (0.1-1.4); ABSOLUTE NEUT (AUTO) 6.5 10^3/uL (1.7-8.2); BASOPHILS % (AUTO) 0.5 % (0-2); EOSINOPHILS % (AUTO) 2.4 % (0-6); HEMATOCRIT 39.3 % (37.9-51.0); HEMOGLOBIN 13.2 g/dL (13.5-17.0); INTERNATIONAL RATION (INR) 0.96; LYMPHOCYTES % (AUTO) 21.6 % (13-45); MEAN CORPUSCULAR HEMOGLOBIN 31.1 pg (27.0-33.4); MEAN CORPUSCULAR HGB CONC 33.6 g/dL (32.0-36.0); MEAN CORPUSCULAR VOLUME 92 fl (80-97); MONOCYTES % (AUTO) 5.9 % (3-13); PLATELET COUNT 185 10^3/uL (150-450); PROTHROMBIN TIME 12.8 SEC (11.4-15.4); RED BLOOD COUNT 4.25 10^6/uL (4.35-5.55); RED CELL DISTRIBUTION WIDTH 15.5 % (11.5-14.0); SEGMENTED NEUTROPHILS % (AUTO) 69.6 % (42-78); TOTAL CELLS COUNTED % (AUTO) 100 %; WHITE BLOOD COUNT 9.3 10^3/uL (4.0-10.5)
--- NOTE | 2019-03-15 13:29 | RADIOLOGY REPORT (SQ) ---
EXAM DESCRIPTION: CHEST SINGLE VIEW COMPLETED DATE/TIME: 03/15/2019 1:16 pm REASON FOR STUDY: SOB COMPARISON: 12/23/2018 EXAM PARAMETERS: NUMBER OF VIEWS: One view. TECHNIQUE: Single frontal radiographic view of the chest acquired. RADIATION DOSE: NA LIMITATIONS: None. FINDINGS: LUNGS AND PLEURA: Minimal left retrocardiac opacity. Blunting of the bilateral costophren ic angles possibly scarring versus small effusions. No pneumothorax. MEDIASTINUM AND HILAR STRUCTURES: No masses. Contour normal. HEART AND VASCULAR STRUCTURES: Enlarged, stable. BONES: No acute findings. HARDWARE: None in the chest. OTHER: No other significant finding. IMPRESSION: Minimal left retrocardiac opacity possibly atelectasis or infection. Blunting of the bilateral costophrenic angles possibly scarring versus small effusions. TECHNICAL DOCUMENTATION: JOB ID: [id number] [employer]- All Rights Reserved Reading location - IP/workstation name: [email or web address]
[2019-03-15 13:35] LABS: ALBUMIN 3.7 g/dL (3.5-5.0); ALKALINE PHOSPHATASE 109 U/L (38-126); ANION GAP 7 (5-19); ASPARTATE AMINO TRANSFERASE 16 U/L (17-59); BILIRUBIN,DIRECT 0.3 mg/dL (0.0-0.4); BILIRUBIN,TOTAL 0.4 mg/dL (0.2-1.3); BLOOD UREA NITROGEN 18 mg/dL (7-20); CARBON DIOXIDE 32 mmol/L (22-30); CHLORIDE 97 mmol/L (98-107); GLUCOSE 236 mg/dL (75-110); POTASSIUM 4.5 mmol/L (3.6-5.0); TOTAL PROTEIN 6.2 g/dL (6.3-8.2)
[2019-03-15] MEDS ORDERED: LEVOFLOXACIN 750 MG/D5W RTU 750 MG/150 ML RTUPB IV ONE (13:38)
[2019-03-15] MEDS ORDERED: ACETAMINOPHEN 325 MG TABLET PO PRN (15:25)
[2019-03-15] MEDS ORDERED: DEXTROSE 50%-WATER 25 GM/50 ML DISP.SYRIN IV PRN ×2 (15:30)
[2019-03-15] MEDS ORDERED: GLUCAGON,HUMAN RECOMB 1 MG INJ IM PRN (15:30)
[2019-03-15] MEDS ORDERED: DEXTROSE 40% GEL 15 GM TUBE PO PRN ×2 (15:30)
[2019-03-15] MEDS: IPRATROPIUM/ALBUTEROL 0.5-2.5 MG/3 ML AMPUL NEB SCH ×2 (16:15→20:08)
--- NOTE | 2019-03-15 16:43 | PDOC H&P ---
History of Present Illness Admission Date/PCP: 03/15/19 15:33 ARTEMIO KAMINSKI MD Patient complains of: Difficulty in breathing History of Present Illness: ADÁN CHEUNG is a 53 year old male Is a 53-year-old male several hospital admissions due to the noncompliance supposed to use the trilogy machine at night and used oxygen but very noncompliance to use that continues to smoke came to the emergency department because of the respiratory distress via EMS received IV Solu-Medrol magnesium's on epi patient was put on a BiPAP in the ER and feeling better Also start complaining of a lot of cough and congestion since last several days Patient is denied any chest pain In the emergency department patient initial work-up is all stable except patient have a questionable pneumonia in the lung patient's cardiac enzyme EKG all stable Patient again very noncompliance several discussions with the patient and the family Admit the patient in IMCU Past Medical History Cardiac Medical History: Reports: Hyperlipidema, Hypertension Denies: Coronary Artery Disease, Myocardial Infarction Pulmonary Medical History: Reports: Asthma, Bronchitis, Chronic Obstructive Pulmonary Disease (COPD), Pneumonia Denies: Tuberculosis Neurological Medical History: Denies: Seizures Endocrine Medical History: Reports: Diabetes Mellitus Type 2 GI Medical History: Denies: Cirrhosis, Crohn's Disease, Ulcerative Colitis Musculoskeltal Medical History: Denies: Arthritis Psychiatric Medical History: Reports: Depression Traumatic Medical History: Denies: Traumatic Brain Injury Hematology: Denies: Anemia Infectious Medical History: Denies: HIV Past Surgical History Past Surgical History: Reports: Cardiac Catheterization, Cholecystectomy, Orthopedic Surgery - R foot, Tonsillectomy Social History Smoking Status: Current Some Day Smoker Frequency of Alcohol Use: None Hx Recreational Drug Use: No Drugs: None Hx Prescription Drug Abuse: No Family History Family History: Reviewed & Not Pertinent, COPD, Hypertension Parental Family History Reviewed: Yes Children Family History Reviewed: Yes Sibling(s) Family History Reviewed.: Yes Medication/Allergy Home Medications: Albuterol Sulfate [Proair HFA Inhalation Aerosol 8.5 gm MDI] 2 puff IH Q4HP PRN 08/31/18 Aspirin [Adult Low Dose Aspirin EC] 81 mg PO DAILY 08/31/18 Diltiazem HCl [Cardizem Cd 120 mg Capsule] 120 mg PO DAILY 08/31/18 Fluticasone Propionate [Flonase Nasal Berthoud 50 Mcg/Berthoud 16 gm] 1 spray NASL BI DP PRN 08/31/18 Fluticasone/Vilanterol [Breo Ellipta 100-25 Mcg INH] 1 puff IH DAILY 08/31/18 Gabapentin [Neurontin 100 mg Capsule] 100 mg PO Q8 08/31/18 Insulin Aspart [Novolog Flexpen] 5 units SQ MEALS 08/31/18 Tamsulosin HCl [Flomax 0.4 mg Cap.sr] 0.4 mg PO QPM 08/31/18 Atorvastatin Calcium [Lipitor 20 mg Tablet] 20 mg PO QHS 12/24/18 Furosemide [Lasix 20 mg Tablet] 10 mg PO QAM 12/24/18 Insulin Detemir [Levemir] 36 unit SQ BID 12/24/18 Lisinopril [Prinivil 5 mg Tablet] 2.5 mg PO DAILY 12/24/18 Allergies/Adverse Reactions: amoxicillin [Amoxicillin] Adverse Reaction (Verified 11/04/18 14:46) Hives Iodinated Contrast Media [IV Dye, Iodine Containing] Adverse Reaction (Verified 11/04/18 14:46) Hives Penicillins Adverse Reaction (Verified 11/04/18 14:46) Hives Apricots Adverse Reaction (Mild, Uncoded 11/04/18 14:46) Hives Review of Systems Constitutional: ABSENT: chills, fever(s), headache(s), weight gain, weight loss Eyes: ABSENT: visual disturbances Ears: ABSENT: hearing changes Cardiovascular: PRESENT: dyspnea on exertion. ABSENT: chest pain, edema, orthropnea, palpitations Respiratory: PRESENT: cough. ABSENT: hemoptysis Gastrointestinal: ABSENT: abdominal pain, constipation, diarrhea, hematemesis, hematochezia, nausea, vomiting Genitourinary: ABSENT: dysuria, hematuria Musculoskeletal: ABSENT: joint swelling Integumentary: ABSENT: rash, wounds Neurological: ABSENT: abnormal gait, abnormal speech, confusion, dizziness, focal weakness, syncope Psychiatric: ABSENT: anxiety, depression, homidical ideation, suicidal ideation Endocrine: ABSENT: cold intolerance, heat intolerance, menstrual abnormalities, polydipsia, polyuria Hematologic/Lymphatic: ABSENT: easy bleeding, easy bruising, lymphadenopathy Physical Exam Vital Signs: Temp Pulse Resp BP Pulse Ox 98.1 F 18 154/74 H 92 03/15/19 13:42 03/15/19 15:01 03/15/19 15:01 03/15/19 15:01 Intake & Output 03/14/19 03/15/19 03/16/19 06:59 06:59 06:59 Weight 120.3 kg General appearance: PRESENT: no acute distress, mild distress, obese, well- developed, well-nourished Head exam: PRESENT: atraumatic, normocephalic Eye exam: PRESENT: conjunctiva pink, EOMI, PERRLA. ABSENT: scleral icterus Ear exam: PRESENT: normal external ear exam Mouth exam: PRESENT: moist, tongue midline Neck exam: PRESENT: full ROM. ABSENT: carotid bruit, JVD, lymphadenopathy, thyromegaly Respiratory exam: PRESENT: decreased breath sounds, wheezes Cardiovascular exam: PRESENT: RRR. ABSENT: diastolic murmur, rubs, systolic murmur Pulses: PRESENT: normal dorsalis pedis pul, +2 pedal pulses bilateral Vascular exam: PRESENT: normal capillary refill GI/Abdominal exam: PRESENT: normal bowel sounds, soft. ABSENT: distended, guarding, mass, organolmegaly, rebound, tenderness Rectal exam: PRESENT: deferred Extremities exam: ABSENT: pedal edema Neurological exam: PRESENT: alert, awake, oriented to person, oriented to place, oriented to time, oriented to situation, CN II-XII grossly intact. ABSENT: m otor sensory deficit Psychiatric exam: PRESENT: appropriate affect, normal mood. ABSENT: homicidal ideation, suicidal ideation Skin exam: PRESENT: dry, intact, warm. ABSENT: cyanosis, rash Results Laboratory Results: 03/15/19 12:58 03/15/19 12:58 03/15/19 03/15/19 03/15/19 12:58 12:58 13:59 WBC 9.3 RBC 4.25 L Hgb 13.2 L Hct 39.3 MCV 92 MCH 31.1 MCHC 33.6 RDW 15.5 H Plt Count 185 Seg Neutrophils % 69.6 Sodium 136.1 L Potassium 4.5 Chloride 97 L Carbon Dioxide 32 H Anion Gap 7 BUN 18 Creatinine 0.80 Est GFR ( Amer) > 60 Glucose 236 H Calcium 9.0 Magnesium 8.6 H* 2.4 H D Total Bilirubin 0.4 AST 16 L Alkaline Phosphatase 109 Total Protein 6.2 L Albumin 3.7 03/15/19 12:58 Troponin I < 0.012 Impressions: Chest X-Ray 03/15/19 13:04 IMPRESSION: Minimal left retrocardiac opacity possibly atelectasis or infection. Blunting of the bilateral costophrenic angles possibly scarring versus small eff usions. Assessment & Plan - Diagnosis (1) Acute and chronic respiratory failure with hypercapnia Is this a current diagnosis for this admission?: Yes Plan: Currently continues to BiPAP Consult to Dr. Regalado the pulmonary (2) COPD exacerbation Is this a current diagnosis for this admission?: Yes Plan: Continues to nebulizer treatments and Solu-Medrol's (3) Diabetes mellitus type 2 in obese Is this a current diagnosis for this admission?: Yes Plan: Continues to sliding scale on the current insulin (4) Hyperlipidemia Qualifiers: Hyperlipidemia type: unspecified Is this a current diagnosis for this admission?: Yes (5) Hypertension Qualifiers: Hypertension type: essential hypertension Is this a current diagnosis for this admission?: Yes Plan: Continues to current medications (6) Noncompliance Is this a current diagnosis for this admission?: Yes (7) Pneumonia Qualifiers: Pneumonia type: due to unspecified organism Laterality: unspecified laterality Is this a current diagnosis for this admission?: Yes Plan: Start the patient on IV antibiotic (8) Sleep apnea syndrome Qualifiers: Sleep apnea type: unspecified type Is this a current diagnosis for this admission?: Yes Plan: Patient is usually hypoventilation syndromes currently using the trilogy machine but noncompliance with the machines - Time Time Spent: 50 to 70 Minutes Medications reviewed and adjusted accordingly: Yes Anticipated discharge: Home Within: Other - Inpatient Certification Based on my medical assessment, after consideration of the patient's comorbidities, presenting symptoms, or acuity I expect that the services needed warrant INPATIENT care.: Yes I certify that my determination is in accordance with my understanding of Medicare's requirements for reasonable and necessary INPATIENT services [42 CFR 412.3e].: Yes Medical Necessity: Failure to Improve With Outpatient Therapy, Significant Comorbidiites Make Outpatient Treatment Too Risky, Need Close Monitoring Due to Risk of Patient Decompensation, Need For Continuous Telemetry Monitoring, Need for Nebulizer Therapy and Monitoring of Response, Need for IV Antibiotics Post Hospital Care: D/C [employer] Documentation - Plan Summary Plan Summary: Very extensive discussion with the patient's and other family member with the very poor compliance issues and also some social issues to use which I believe causing the noncompliance Patients understand very well about to using the all this trilogy machines and oxygen's Admitting IMCU see other MD orders Noncompliance issue patient never not a very good prognosis
[2019-03-15 16:57] LABS: CREATINE KINASE MB 2.36 ng/mL (<4.55)
[2019-03-15 17:06] LABS: TROPONIN I < 0.012 ng/mL
--- NOTE | 2019-03-15 17:24 | EKG REPORT ---
SEVERITY:- OTHERWISE NORMAL ECG - SINUS TACHYCARDIA BORDERLINE RIGHT AXIS DEVIATION : Confirmed by: Guillermo Pham MD 15-Mar-2019 17:24:18
[2019-03-15 17:48] LABS: ARTERIAL BLOOD BASE EXCESS -0.3 mmol/L; ARTERIAL BLOOD H2CO3 1.45 mmol/L (1.05-1.35); ARTERIAL BLOOD HCO3 25.9 mmol/L (20-24); ARTERIAL BLOOD O2 SATURATION 93.6 % (94-98); ARTERIAL BLOOD PCO2 48.2 mmHg (35-45); ARTERIAL BLOOD PH 7.35 (7.35-7.45); ARTERIAL BLOOD PO2 72.1 mmHg (80-100); ARTERIAL BLOOD TOTAL CO2 27.4 mmol/L (23-27)
[2019-03-15 18:37] LABS: ARTERIAL BLOOD FIO2 30%
[2019-03-15] MEDS: INSULIN LISPRO 100 UNIT/ML 3 ML VIAL SUBCUT SCH ×2 (21:02→22:34)
[2019-03-15 21:41] LABS: CREATINE KINASE MB 2.26 ng/mL (<4.55)
[2019-03-15 21:43] LABS: TROPONIN I < 0.012 ng/mL
[2019-03-15] MEDS: METHYLPREDNISOLONE INJ 40 MG/1 ML SDV IV SCH (22:33)
[2019-03-15] MEDS: FAMOTIDINE 20 MG TABLET PO SCH (22:33)
[2019-03-15] MEDS ORDERED: INSULIN GLARGINE,HUM.REC.ANLOG 1,000 UNIT/10 ML VIAL (PYX) SUBCUT ONE (23:36)
[2019-03-15] MEDS ORDERED: INSULIN GLARGINE,HUM.REC.ANLOG 1,000 UNIT/10 ML VIAL (PYX) SUBCUT PRN (23:39)
[2019-03-15] MEDS ORDERED: INSULIN GLARGINE,HUM.REC.ANLOG 1,000 UNIT/10 ML VIAL SUBCUT ONE (23:59)
[2019-03-15] MEDS ORDERED: GABAPENTIN 100 MG CAPSULE PO ONE (23:59)
[2019-03-15] MEDS ORDERED: ATORVASTATIN CALCIUM 20 MG TABLET PO ONE (23:59)
[2019-03-16] MEDS: IPRATROPIUM/ALBUTEROL 0.5-2.5 MG/3 ML AMPUL NEB SCH ×6 (00:33→20:31)
[2019-03-16 04:53] LABS: ABSOLUTE LYMPHOCYTES (AUTO) 0.5 10^3/uL (0.5-4.7); ABSOLUTE MONOCYTES (AUTO) 0.1 10^3/uL (0.1-1.4); ABSOLUTE NEUT (AUTO) 4.9 10^3/uL (1.7-8.2); HEMATOCRIT 37.4 % (37.9-51.0); HEMOGLOBIN 12.4 g/dL (13.5-17.0); MEAN CORPUSCULAR HGB CONC 33.2 g/dL (32.0-36.0); MEAN CORPUSCULAR VOLUME 93 fl (80-97); MONOCYTES % (AUTO) 1.2 % (3-13); PLATELET COUNT 164 10^3/uL (150-450); RED CELL DISTRIBUTION WIDTH 15.1 % (11.5-14.0); SEGMENTED NEUTROPHILS % (AUTO) 89.8 % (42-78); TOTAL CELLS COUNTED % (AUTO) 100 %; WHITE BLOOD COUNT 5.5 10^3/uL (4.0-10.5)
[2019-03-16 05:10] LABS: ANION GAP 9 (5-19); BLOOD UREA NITROGEN 26 mg/dL (7-20); CALCIUM 8.8 mg/dL (8.4-10.2); CARBON DIOXIDE 28 mmol/L (22-30); CHLORIDE 98 mmol/L (98-107); POTASSIUM 4.8 mmol/L (3.6-5.0)
[2019-03-16 05:41] LABS: GLUCOSE 428 mg/dL (75-110)
[2019-03-16] MEDS ORDERED: GABAPENTIN 100 MG CAPSULE PO SCH (06:00)
[2019-03-16] MEDS: METHYLPREDNISOLONE INJ 40 MG/1 ML SDV IV SCH (06:53)
[2019-03-16] MEDS ORDERED: INSULIN ASPART 5 UNIT SQ SCH (08:00)
[2019-03-16] MEDS ORDERED: FUROSEMIDE 20 MG TABLET PO SCH (08:00)
[2019-03-16] MEDS ORDERED: (PENDING PHARMACY ID) (Sitagliptin Phos/Metformin Hcl [Janumet 50-500 Mg Tablet] 1 TAB) PO SCH (08:00)
--- NOTE | 2019-03-16 08:09 | PDOC PROGRESS REPORT ---
Subjective Progress Note for:: 03/16/19 Subjective:: Patient is currently doing much better Patient's denied any chest pain to than any shortness of the breath Since using the BiPAP at night Reason For Visit: COPD ACUTE, RESPIRATORY DISTRESS Physical Exam Vital Signs: Temp Pulse Resp BP Pulse Ox 97.5 F 65 19 147/62 H 95 03/16/19 03:36 03/16/19 07:00 03/16/19 03:49 03/16/19 03:36 03/16/19 03:49 Intake & Output 03/15/19 03/16/19 03/17/19 06:59 06:59 06:59 Intake Total 430 Output Total 800 Balance -370 Weight 116.5 kg General appearance: PRESENT: no acute distress, well-developed, well-nourished Head exam: PRESENT: atraumatic, normocephalic Eye exam: PRESENT: conjunctiva pink, EOMI, PERRLA. ABSENT: scleral icterus Ear exam: PRESENT: normal external ear exam Mouth exam: PRESENT: moist, tongue midline Neck exam: PRESENT: full ROM. ABSENT: carotid bruit, JVD, lymphadenopathy, thyromegaly Respiratory exam: PRESENT: decreased breath sounds Cardiovascular exam: PRESENT: RRR. ABSENT: diastolic murmur, rubs, systolic murmur Pulses: PRESENT: normal dorsalis pedis pul, +2 pedal pulses bilateral Vascular exam: PRESENT: normal capillary refill GI/Abdominal exam: PRESENT: normal bowel sounds, soft. ABSENT: distended, guarding, mass, organolmegaly, rebound, tenderness Rectal exam: PRESENT: deferred Musculoskeletal exam: PRESENT: ambulatory Neurological exam: PRESENT: alert, awake, oriented to person, oriented to place, oriented to time, oriented to situation, CN II-XII grossly intact. ABSENT: motor sensory deficit Psychiatric exam: PRESENT: appropriate affect, normal mood. ABSENT: homicidal ideation, suicidal ideation Skin exam: PRESENT: dry, intact, warm. ABSENT: cyanosis, rash Results Laboratory Results: 03/16/19 04:22 03/16/19 04:22 03/15/19 03/15/19 03/15/19 12:58 12:58 13:59 WBC 9.3 RBC 4.25 L Hgb 13.2 L Hct 39.3 MCV 92 MCH 31.1 MCHC 33.6 RDW 15.5 H Plt Count 185 Seg Neutrophils % 69.6 Carbonic Acid HCO3/H2CO3 Ratio ABG pH ABG pCO2 ABG pO2 ABG HCO3 ABG O2 Saturation ABG Base Excess FiO2 Sodium 136.1 L Potassium 4.5 Chloride 97 L Carbon Dioxide 32 H Anion Gap 7 BUN 18 Creatinine 0.80 Est GFR ( Amer) > 60 Glucose 236 H Calcium 9.0 Magnesium 8.6 H* 2.4 H D Total Bilirubin 0.4 AST 16 L Alkaline Phosphatase 109 Total Protein 6.2 L Albumin 3.7 03/15/19 03/16/19 03/16/19 17:40 04:22 04:22 WBC 5.5 RBC 4.00 L Hgb 12.4 L Hct 37.4 L MCV 93 MCH 31.0 MCHC 33.2 RDW 15.1 H Plt Count 164 Seg Neutrophils % 89.8 H Carbonic Acid 1.45 H HCO3/H2CO3 Ratio 17:1 ABG pH 7.35 ABG pCO2 48.2 H ABG pO2 72.1 L ABG HCO3 25.9 H ABG O2 Saturation 93.6 L ABG Base Excess -0.3 FiO2 30% Sodium 134.9 L Potassium 4.8 Chloride 98 Carbon Dioxide 28 Anion Gap 9 BUN 26 H Creatinine 0.94 Est GFR ( Amer) > 60 Glucose 428 H* Calcium 8.8 Magnesium 2.3 Total Bilirubin AST Alkaline Phosphatase Total Protein Albumin 03/15/19 03/15/19 03/15/19 12:58 16:10 16:10 Creatine Kinase 78 CK-MB (CK-2) 2.36 Troponin I < 0.012 < 0.012 03/15/19 03/15/19 03/15/19 17:04 21:05 21:05 Creatine Kinase 76 CK-MB (CK-2) 2.26 Troponin I Cancelled < 0.012 Impressions: Chest X-Ray 03/15/19 13:04 IMPRESSION: Minimal left retrocardiac opacity possibly atelectasis or infectio n. Blunting of the bilateral costophrenic angles possibly scarring versus small effusions. Assessment & Plan - Diagnosis (1) Acute and chronic respiratory failure with hypercapnia Is this a current diagnosis for this admission?: Yes Plan: Discussed with the pulmonary to adjust the machine at home continues to BiPAP while patient is sleeping (2) COPD exacerbation Is this a current diagnosis for this admission?: Yes Plan: Currently doing better will conditions current management (3) Diabetes mellitus type 2 in obese Is this a current diagnosis for this admission?: Yes Plan: Due to the steroid patient's blood sugar is running high we will cut down the steroids (4) Hyperlipidemia Qualifiers: Hyperlipidemia type: unspecified Is this a current diagnosis for this admission?: Yes (5) Hypertension Qualifiers: Hypertension type: essential hypertension Is this a current diagnosis for this admission?: Yes Plan: Continues to current medications (6) Noncompliance Is this a current diagnosis for this admission?: Yes (7) Pneumonia Qualifiers: Pneumonia type: due to unspecified organism Laterality: unspecified laterality Is this a current diagnosis for this admission?: Yes Plan: Start the patient on IV antibiotic (8) Sleep apnea syndrome Qualifiers: Sleep apnea type: unspecified type Is this a current diagnosis for this admission?: Yes Plan: Patient is usually hypoventilation syndromes currently using the trilogy machine but noncompliance with the machines - Time Time Spent with patient: 15-24 minutes Medications reviewed and adjusted accordingly: Yes Anticipated discharge: Home with Homehealth Within: Other - Plan Summary Plan Summary: Continues to IV antibiotics Follow with the pulmonary
[2019-03-16] MEDS: INSULIN LISPRO 100 UNIT/ML 3 ML VIAL SUBCUT SCH ×7 (08:19→21:06)
[2019-03-16] MEDS: METFORMIN HCL 500 MG TABLET PO SCH ×2 (08:19→16:36)
[2019-03-16] MEDS: SITAGLIPTIN PHOSPHATE 50 MG TABLET PO SCH ×2 (08:19→16:37)
[2019-03-16] MEDS: FUROSEMIDE 20 MG TABLET PO SCH (08:19)
[2019-03-16] MEDS: LEVOFLOXACIN 500 MG/D5W RTU 500 MG/100 ML RTUPB IV SCH (09:05)
[2019-03-16] MEDS: LISINOPRIL 5 MG TABLET PO SCH (09:06)
[2019-03-16] MEDS: DILTIAZEM HCL 120 MG CAP.SR.24H PO SCH (09:06)
[2019-03-16] MEDS: FAMOTIDINE 20 MG TABLET PO SCH ×2 (09:06→21:06)
[2019-03-16] MEDS: TAMSULOSIN HCL 0.4 MG CAP.SR.24H PO SCH (09:06)
[2019-03-16] MEDS: DOCUSATE SODIUM 100 MG CAPSULE PO SCH (09:06)
[2019-03-16] MEDS: ASPIRIN 81 MG TABLET, ENT COATED PO SCH (09:06)
[2019-03-16] MEDS: ENOXAPARIN SODIUM INJ 40 MG/0.4 ML DISP.SYRIN SUBCUT SCH (09:06)
[2019-03-16] MEDS ORDERED: TAMSULOSIN HCL 0.4 MG CAP.SR.24H PO SCH (10:00)
[2019-03-16] MEDS ORDERED: INSULIN DETEMIR 36 UNIT SQ SCH (10:00)
[2019-03-16] MEDS ORDERED: ASPIRIN 81 MG TABLET, ENT COATED PO SCH (10:00)
[2019-03-16] MEDS ORDERED: (PENDING PHARMACY ID) (Lisinopril [Prinivil 2.5 Mg Tablet] 2.5 MG) PO SCH (10:00)
[2019-03-16] MEDS ORDERED: DILTIAZEM HCL 120 MG CAP.SR.24H PO SCH (10:00)
[2019-03-16] MEDS ORDERED: ATORVASTATIN CALCIUM 20 MG TABLET PO SCH (10:00)
[2019-03-16] MEDS: INSULIN GLARGINE,HUM.REC.ANLOG 1,000 UNIT/10 ML VIAL SUBCUT SCH ×2 (10:57→21:06)
--- NOTE | 2019-03-16 11:18 | PDOC CONSULTATION ---
Consultation Consult Date: 03/16/19 Attending physician:: ARTEMIO KAMINSKI Provider Consulted: DANIEL LYONS Consult reason:: acute/chronic resp failure History of Present Illness Admission Date/PCP: 03/15/19 15:33 ARTEMIO KAMINSKI MD History of Present Illness: ADÁN CHEUNG is a 53 year old male, well-known to [facility] chronic respiratory failure secondary to COPD with some component of obesity hypoventilation syndrome. He presents complains of being short of breath progressively for the last 3 days with a cough productive of green phlegm although he is unaware of any fever or chills he denies hemoptysis nausea vomiting diarrhea rhinorrhea sore throat chest pain but admits to chronic edema. infortunately he continues to smoke Past Medical History Cardiac Medical History: Reports: Hyperlipidema, Hypertension Denies: Coronary Artery Disease, Myocardial Infarction Pulmonary Medical History: Reports: Asthma, Bronchitis, Chronic Obstructive Pulmonary Disease (COPD), Pneumonia Denies: Tuberculosis Neurological Medical History: Denies: Hemorrhagic CVA, Migraine, Seizures Endocrine Medical History: Reports: Diabetes Mellitus Type 2 GI Medical History: Denies: Cirrhosis, Crohn's Disease, Ulcerative Colitis Musculoskeltal Medical History: Denies: Arthritis Skin Medical History: Denies: Psoriasis Psychiatric Medical History: Reports: Depression, Tobacco Dependency Traumatic Medical History: Denies: Traumatic Brain Injury Hematology: Denies: Anemia Infectious Medical History: Denies: HIV Past Surgical History Past Surgical History: Reports: Cardiac Catheterization, Cholecystectomy, Orthopedic Surgery - R foot, Tonsillectomy Social History Smoking Status: Current Every Day Smoker Cigarettes Packs Per Day: 1.5 Number of Years Smokin Last Time Smoked: 03/14/2019 Passive smoke exposure as: Both Frequency of Alcohol Use: None Hx Recreational Drug Use: No Drugs: None Hx Prescription Drug Abuse: No Have you had any respiratory illnesses as a child?: No Have you been exposed to any sick contacts recently?: No Have you had any recent respiratory illnesses?: Yes Have you travelled outside of [place] in the past 12 months?: No Family History Family History: COPD, Hypertension Parental Family History Reviewed: Yes Children Family History Reviewed: Yes Sibling(s) Family History Reviewed.: Yes Medication/Allergy Home Medications: Aspirin [Ecotrin 81 mg EC Tablet] 81 mg PO DAILY 03/15/19 Atorvastatin Calcium [Lipitor 20 mg Tablet] 20 mg PO DAILY 03/15/19 Diltiazem HCl [Diltiazem 24Hr ER (Cd)] 120 mg PO DAILY 03/15/19 Furosemide [Lasix 20 mg Tablet] 10 mg PO QAM 03/15/19 Gabapentin [Neurontin 100 mg Capsule] 100 mg PO Q8 03/15/19 Insulin Aspart [Novolog Insulin (Aspart) 100 unit/mL] 5 unit SQ MEALS 03/15/19 Insulin Detemir [Levemir] 36 unit SQ BID 03/15/19 Ipratropium/Albuterol Sulfate [Combivent Respimat 4 gm Mdi] 1 puff IH Q6HP PRN 03/15/19 Lisinopril [Prinivil 2.5 mg Tablet] 2.5 mg PO DAILY 03/15/19 Sitagliptin Phos/Metformin HCl [Janumet 50-500 mg Tablet] 1 tab PO BIDBS Tamsulosin HCl [Flomax 0.4 mg Cap.sr] 0.4 mg PO DAILY 03/15/19 Allergies/Adverse Reactions: amoxicillin [Amoxicillin] Adverse Reaction (Verified 11/04/18 14:46) Hives Iodinated Contrast Media [IV Dye, Iodine Containing] Adverse Reaction (Verified 11/04/18 14:46) Hives Penicillins Adverse Reaction (Verified 11/04/18 14:46) Hives Apricots Adverse Reaction (Mild, Uncoded 11/04/18 14:46) Hives Review of Systems Constitutional: ABSENT: anorexia, weight gain, weight loss Eyes: ABSENT: visual disturbances Ears: ABSENT: hearing changes Nose, Mouth, and Throat: ABSENT: sore throat Cardiovascular: PRESENT: dyspnea on exertion, edema. ABSENT: palpitations Respiratory: PRESENT: cough, dyspnea, sputum. ABSENT: hemoptysis Gastrointestinal: ABSENT: abdominal pain, bloating, coffee ground emesis, constipation, dysphagia, hematemesis, hematochezia, melena Genitourinary: ABSENT: dysuria, hematuria Musculoskeletal: ABSENT: deformity, joint swelling Integumentary: ABSENT: pruritus, rash Neurological: ABSENT: abnormal gait, abnormal movements, abnormal speech, confus ion, convulsions, focal weakness, frequent falls, memory loss, numbness, paresthesias Psychiatric: ABSENT: hallucinations, homidical ideation, suicidal ideation Endocrine: ABSENT: cold intolerance, heat intolerance Hematologic/Lymphatic: ABSENT: easy bruising, lymphadenopathy Allergic/Immunologic: ABSENT: seasonal rhinorrhea Physical Exam Vital Signs: Temp Pulse Resp BP Pulse Ox 98.4 F 60 20 140/57 H 92 03/16/19 07:33 03/16/19 08:34 03/16/19 08:34 03/16/19 07:33 03/16/19 08:34 Intake & Output 03/15/19 03/16/19 03/17/19 06:59 06:59 06:59 Intake Total 430 Output Total 800 Balance -370 Weight 116.5 kg General appearance: PRESENT: no acute distress, cooperative, disheveled, morbidly obese Head exam: PRESENT: atraumatic, normocephalic Eye exam: PRESENT: conjunctiva pale, EOMI. ABSENT: nystagmus, periorbital swelling Mouth exam: PRESENT: dry mucosa, neck supple, tongue midline Neck exam: ABSENT: carotid bruit, full ROM, JVD, lymphadenopathy, meningismus, tenderness, thyromegaly, tracheal deviation, tracheostomy, other Respiratory exam: PRESENT: decreased breath sounds, prolonged expiratory phas, rales, rhonchi, symmetrical, unlabored. ABSENT: retraction, stridor, tachypnea Cardiovascular exam: PRESENT: RRR, +S1, +S2. ABSENT: tachycardia Pulses: PRESENT: normal radial pulses GI/Abdominal exam: PRESENT: hypoactive bowel sounds, soft. ABSENT: distended, guarding, mass, tenderness Extremities exam: ABSENT: calf tenderness, clubbing, joint swelling, tenderness Musculoskeletal exam: ABSENT: deformity, dislocation Neurological exam: PRESENT: alert, awake Psychiatric exam: PRESENT: appropriate affect Skin exam: PRESENT: dry, warm Results Laboratory Results: 03/16/19 04:22 03/16/19 04:22 03/15/19 03/15/19 03/15/19 12:58 12:58 13:59 WBC 9.3 RBC 4.25 L Hgb 13.2 L Hct 39.3 MCV 92 MCH 31.1 MCHC 33.6 RDW 15.5 H Plt Count 185 Seg Neutrophils % 69.6 Carbonic Acid HCO3/H2CO3 Ratio ABG pH ABG pCO2 ABG pO2 ABG HCO3 ABG O2 Saturation ABG Base Excess FiO2 Sodium 136.1 L Potassium 4.5 Chloride 97 L Carbon Dioxide 32 H Anion Gap 7 BUN 18 Creatinine 0.80 Est GFR ( Amer) > 60 Glucose 236 H Calcium 9.0 Magnesium 8.6 H* 2.4 H D Total Bilirubin 0.4 AST 16 L Alkaline Phosphatase 109 Total Protein 6.2 L Albumin 3.7 03/15/19 03/16/19 03/16/19 17:40 04:22 04:22 WBC 5.5 RBC 4.00 L Hgb 12.4 L Hct 37.4 L MCV 93 MCH 31.0 MCHC 33.2 RDW 15.1 H Plt Count 164 Seg Neutrophils % 89.8 H Carbonic Acid 1.45 H HCO3/H2CO3 Ratio 17:1 ABG pH 7.35 ABG pCO2 48.2 H ABG pO2 72.1 L ABG HCO3 25.9 H ABG O2 Saturation 93.6 L ABG Base Excess -0.3 FiO2 30% Sodium 134.9 L Potassium 4.8 Chloride 98 Carbon Dioxide 28 Anion Gap 9 BUN 26 H Creatinine 0.94 Est GFR ( Amer) > 60 Glucose 428 H* Calcium 8.8 Magnesium 2.3 Total Bilirubin AST Alkaline Phosphatase Total Protein Albumin 03/15/19 03/15/19 03/15/19 12:58 16:10 16:10 Creatine Kinase 78 CK-MB (CK-2) 2.36 Troponin I < 0.012 < 0.012 03/15/19 03/15/19 03/15/19 17:04 21:05 21:05 Creatine Kinase 76 CK-MB (CK-2) 2.26 Troponin I Cancelled < 0.012 Impressions: Chest X-Ray 03/15/19 13:04 IMPRESSION: Minimal left retrocardiac opacity possibly atelectasis or infection. Blunting of the bilateral costophrenic angles possibly scarring versus small effusions. Assessment & Plan - Diagnosis (1) COPD exacerbation Is this a current diagnosis for this admission?: Yes Plan: Long-acting beta agonist long-acting muscarinic agent short acting beta agonist for rescue with no inhaled corticosteroids at this time continue current antibiotic regimen continue NIPPV (2) Tobacco abuse Is this a current diagnosis for this admission?: Yes Plan: Transdermal nicotine we discussed at length risk and dangers associated with continued tobacco use (3) Hypertension Qualifiers: Hypertension type: essential hypertension Is this a current diagnosis for this admission?: Yes Plan: Stable at this time (4) Noncompliance Is this a current diagnosis for this admission?: Yes Plan: Ongoing problem (5) Acute and chronic respiratory failure with hypercapnia Is this a current diagnosis for this admission?: Yes Plan: His trilogy at home denies acute exacerbation continue to stabilize NIPPV antibiotics and bronchodilators (6) Sleep apnea syndrome Qualifiers: Sleep apnea type: unspecified type Is this a current diagnosis for this admission?: Yes Plan: Noninvasive positive pressure ventilation (7) BMI 40.0-44.9, adult Is this a current diagnosis for this admission?: Yes Plan: Consider nutritional consult
[2019-03-16] MEDS: IPRATROPIUM/ALBUTEROL 120 PUFF/4 GM MDI IH PRN (11:30)
[2019-03-16] MEDS: GABAPENTIN 100 MG CAPSULE PO SCH ×2 (13:37→21:05)
[2019-03-16] MEDS ORDERED: METHYLPREDNISOLONE INJ 40 MG/1 ML SDV IV SCH (14:00)
[2019-03-16] MEDS ORDERED: PREDNISONE 20 MG TABLET PO SCH (18:00)
[2019-03-16] MEDS: ATORVASTATIN CALCIUM 20 MG TABLET PO SCH (21:05)
[2019-03-17] MEDS: IPRATROPIUM/ALBUTEROL 0.5-2.5 MG/3 ML AMPUL NEB SCH ×6 (00:48→19:44)
[2019-03-17 05:05] LABS: ABSOLUTE LYMPHOCYTES (AUTO) 0.8 10^3/uL (0.5-4.7); ABSOLUTE MONOCYTES (AUTO) 0.4 10^3/uL (0.1-1.4); ABSOLUTE NEUT (AUTO) 9.3 10^3/uL (1.7-8.2); BASOPHILS % (AUTO) 0.1 % (0-2); HEMATOCRIT 35.3 % (37.9-51.0); HEMOGLOBIN 11.9 g/dL (13.5-17.0); LYMPHOCYTES % (AUTO) 7.2 % (13-45); MEAN CORPUSCULAR HEMOGLOBIN 31.3 pg (27.0-33.4); MEAN CORPUSCULAR HGB CONC 33.7 g/dL (32.0-36.0); MEAN CORPUSCULAR VOLUME 93 fl (80-97); MONOCYTES % (AUTO) 3.7 % (3-13); PLATELET COUNT 182 10^3/uL (150-450); RED CELL DISTRIBUTION WIDTH 14.8 % (11.5-14.0); TOTAL CELLS COUNTED % (AUTO) 100 %; WHITE BLOOD COUNT 10.4 10^3/uL (4.0-10.5)
[2019-03-17 05:20] LABS: ANION GAP 9 (5-19); BLOOD UREA NITROGEN 34 mg/dL (7-20); CALCIUM 8.9 mg/dL (8.4-10.2); CARBON DIOXIDE 28 mmol/L (22-30); CHLORIDE 97 mmol/L (98-107); GLUCOSE 350 mg/dL (75-110); POTASSIUM 5.2 mmol/L (3.6-5.0)
[2019-03-17] MEDS: GABAPENTIN 100 MG CAPSULE PO SCH ×3 (05:46→21:31)
[2019-03-17] MEDS: METFORMIN HCL 500 MG TABLET PO SCH ×2 (07:49→16:33)
[2019-03-17] MEDS: INSULIN LISPRO 100 UNIT/ML 3 ML VIAL SUBCUT SCH ×7 (07:50→21:31)
[2019-03-17] MEDS: SITAGLIPTIN PHOSPHATE 50 MG TABLET PO SCH ×2 (07:50→16:33)
[2019-03-17] MEDS: FUROSEMIDE 20 MG TABLET PO SCH (07:52)
[2019-03-17] MEDS: LISINOPRIL 5 MG TABLET PO SCH (09:15)
[2019-03-17] MEDS: TAMSULOSIN HCL 0.4 MG CAP.SR.24H PO SCH (09:16)
[2019-03-17] MEDS: ASPIRIN 81 MG TABLET, ENT COATED PO SCH (09:16)
[2019-03-17] MEDS: DILTIAZEM HCL 120 MG CAP.SR.24H PO SCH (09:16)
[2019-03-17] MEDS: DOCUSATE SODIUM 100 MG CAPSULE PO SCH (09:16)
[2019-03-17] MEDS: FAMOTIDINE 20 MG TABLET PO SCH ×2 (09:16→21:31)
[2019-03-17] MEDS: PREDNISONE 20 MG TABLET PO SCH (09:16)
[2019-03-17] MEDS: ENOXAPARIN SODIUM INJ 40 MG/0.4 ML DISP.SYRIN SUBCUT SCH (09:16)
[2019-03-17] MEDS: LEVOFLOXACIN 500 MG/D5W RTU 500 MG/100 ML RTUPB IV SCH (09:17)
[2019-03-17] MEDS: IPRATROPIUM/ALBUTEROL 120 PUFF/4 GM MDI IH PRN (09:29)
[2019-03-17] MEDS: INSULIN GLARGINE,HUM.REC.ANLOG 1,000 UNIT/10 ML VIAL SUBCUT SCH ×2 (09:30→21:32)
--- NOTE | 2019-03-17 11:14 | PDOC PROGRESS REPORT ---
Subjective Progress Note for:: 03/17/19 Subjective:: Doing little better Reason For Visit: COPD ACUTE, RESPIRATORY DISTRESS Physical Exam Vital Signs: Temp Pulse Resp BP Pulse Ox 97.8 F 67 18 117/51 L 90 L 03/17/19 07:29 03/17/19 08:50 03/17/19 08:50 03/17/19 07:29 03/17/19 08:50 Intake & Output 03/16/19 03/17/19 03/18/19 06:59 06:59 06:59 Intake Total 430 1322 100 Output Total 800 1550 Balance -370 -228 100 Weight 116.5 kg 118.3 kg General appearance: PRESENT: no acute distress, cooperative, disheveled, morbidly obese Head exam: PRESENT: atraumatic, normocephalic Eye exam: PRESENT: conjunctiva pale, EOMI. ABSENT: nystagmus Mouth exam: PRESENT: moist, neck supple, tongue midline Neck exam: ABSENT: carotid bruit, full ROM, JVD, lymphadenopathy, meningismus, tenderness, thyromegaly, tracheal deviation, tracheostomy, other Respiratory exam: PRESENT: decreased breath sounds, prolonged expiratory phas, rales, rhonchi, unlabored, wheezes. ABSENT: retraction, stridor Cardiovascular exam: PRESENT: RRR, +S1, +S2 Pulses: PRESENT: normal radial pulses GI/Abdominal exam: PRESENT: soft. ABSENT: distended, guarding, mass, rebound, tenderness Extremities exam: ABSENT: calf tenderness, clubbing, joint swelling, tenderness Musculoskeletal exam: ABSENT: deformity, dislocation Neurological exam: PRESENT: alert, awake Psychiatric exam: PRESENT: appropriate affect Skin exam: PRESENT: dry, warm Results Laboratory Results: 03/17/19 04:24 03/17/19 04:24 03/17/19 03/17/19 04:24 04:24 WBC 10.4 RBC 3.80 L Hgb 11.9 L Hct 35.3 L MCV 93 MCH 31.3 MCHC 33.7 RDW 14.8 H Plt Count 182 Seg Neutrophils % 89.0 H Sodium 133.9 L Potassium 5.2 H Chloride 97 L Carbon Dioxide 28 Anion Gap 9 BUN 34 H Creatinine 1.03 Est GFR ( Amer) > 60 Glucose 350 H Calcium 8.9 03/15/19 03/15/19 03/15/19 12:58 16:10 16:10 Creatine Kinase 78 CK-MB (CK-2) 2.36 Troponin I < 0.012 < 0.012 03/15/19 03/15/19 03/15/19 17:04 21:05 21:05 Creatine Kinase 76 CK-MB (CK-2) 2.26 Troponin I Cancelled < 0.012 Impressions: Chest X-Ray 03/15/19 13:04 IMPRESSION: Minimal left retrocardiac opacity possibly atelectasis or infection. Blunting of the bilateral costophrenic angles possibly scarring versus small effusions. Assessment & Plan - Diagnosis (1) COPD exacerbation Is this a current diagnosis for this admission?: Yes Plan: Long-acting beta agonist long-acting muscarinic agent short acting beta agonist for rescue with no inhaled corticosteroids at this time continue current antibiotic regimen continue NIPPV (2) Tobacco abuse Is this a current diagnosis for this admission?: Yes Plan: Transdermal nicotine we discussed at length risk and dangers associated with continued tobacco use (3) Hypertension Qualifiers: Hypertension type: essential hypertension Is this a current diagnosis for this admission?: Yes Plan: Stable at this time (4) Noncompliance Is this a current diagnosis for this admission?: Yes Plan: Ongoing problem (5) Acute and chronic respiratory failure with hypercapnia Is this a current diagnosis for this admission?: Yes Plan: His trilogy at home denies acute exacerbation continue to stabilize NIPPV antibiotics and bronchodilators (6) Sleep apnea syndrome Qualifiers: Sleep apnea type: unspecified type Is this a current diagnosis for this admission?: Yes Plan: Noninvasive positive pressure ventilation (7) BMI 40.0-44.9, adult Is this a current diagnosis for this admission?: Yes Plan: Consider nutritional consult
--- NOTE | 2019-03-17 11:48 | PDOC PROGRESS REPORT ---
Subjective Progress Note for:: 03/17/19 Subjective:: Patient is feeling much better Patient's denied any chest pain to than any shortness of the breath he is walking the hallway Reason For Visit: COPD ACUTE, RESPIRATORY DISTRESS Physical Exam Vital Signs: Temp Pulse Resp BP Pulse Ox 97.8 F 67 18 117/51 L 90 L 03/17/19 07:29 03/17/19 08:50 03/17/19 08:50 03/17/19 07:29 03/17/19 08:50 Intake & Output 03/16/19 03/17/19 03/18/19 06:59 06:59 06:59 Intake Total 430 1322 100 Output Total 800 1550 Balance -370 -228 100 Weight 116.5 kg 118.3 kg General appearance: PRESENT: no acute distress, well-developed, well-nourished Head exam: PRESENT: atraumatic, normocephalic Eye exam: PRESENT: conjunctiva pink, EOMI, PERRLA. ABSENT: scleral icterus Ear exam: PRESENT: normal external ear exam Mouth exam: PRESENT: moist, tongue midline Neck exam: PRESENT: full ROM. ABSENT: carotid bruit, JVD, lymphadenopathy, thyromegaly Respiratory exam: PRESENT: clear to auscultation allyson Cardiovascular exam: PRESENT: RRR. ABSENT: diastolic murmur, rubs, systolic murmur Pulses: PRESENT: normal dorsalis pedis pul, +2 pedal pulses bilateral Vascular exam: PRESENT: normal capillary refill GI/Abdominal exam: PRESENT: normal bowel sounds, soft. ABSENT: distended, guarding, mass, organolmegaly, rebound, tenderness Rectal exam: PRESENT: deferred Musculoskeletal exam: PRESENT: ambulatory Neurological exam: PRESENT: alert, awake, oriented to person, oriented to place, oriented to time, oriented to situation, CN II-XII grossly intact. ABSENT: jennifer r sensory deficit Psychiatric exam: PRESENT: appropriate affect, normal mood. ABSENT: homicidal ideation, suicidal ideation Skin exam: PRESENT: dry, intact, warm. ABSENT: cyanosis, rash Results Laboratory Results: 03/17/19 04:24 03/17/19 04:24 03/17/19 03/17/19 04:24 04:24 WBC 10.4 RBC 3.80 L Hgb 11.9 L Hct 35.3 L MCV 93 MCH 31.3 MCHC 33.7 RDW 14.8 H Plt Count 182 Seg Neutrophils % 89.0 H Sodium 133.9 L Potassium 5.2 H Chloride 97 L Carbon Dioxide 28 Anion Gap 9 BUN 34 H Creatinine 1.03 Est GFR ( Amer) > 60 Glucose 350 H Calcium 8.9 03/15/19 03/15/19 03/15/19 12:58 16:10 16:10 Creatine Kinase 78 CK-MB (CK-2) 2.36 Troponin I < 0.012 < 0.012 03/15/19 03/15/19 03/15/19 17:04 21:05 21:05 Creatine Kinase 76 CK-MB (CK-2) 2.26 Troponin I Cancelled < 0.012 Impressions: Chest X-Ray 03/15/19 13:04 IMPRESSION: Minimal left retrocardiac opacity possibly atelectasis or infection. Blunting of the bilateral costophrenic angles possibly scarring versus small effusions. Assessment & Plan - Diagnosis (1) Acute and chronic respiratory failure with hypercapnia Is this a current diagnosis for this admission?: Yes Plan: Discussed with the pulmonary to adjust the machine at home continues to BiPAP while patient is sleeping (2) COPD exacerbation Is this a current diagnosis for this admission?: Yes Plan: Currently doing better will conditions current management (3) Diabetes mellitus type 2 in obese Is this a current diagnosis for this admission?: Yes Plan: Due to the steroid patient's blood sugar is running high we will cut down the steroids (4) Hyperlipidemia Qualifiers: Hyperlipidemia type: unspecified Is this a current diagnosis for this admission?: Yes (5) Hypertension Qualifiers: Hypertension type: essential hypertension Is this a current diagnosis for this admission?: Yes Plan: Continues to current medications (6) Noncompliance Is this a current diagnosis for this admission?: Yes (7) Pneumonia Qualifiers: Pneumonia type: due to unspecified organism Laterality: unspecified laterality Is this a current diagnosis for this admission?: Yes Plan: Start the patient on IV antibiotic (8) Sleep apnea syndrome Qualifiers: Sleep apnea type: unspecified type Is this a current diagnosis for this admission?: Yes Plan: Patient is usually hypoventilation syndromes currently using the trilogy machine but noncompliance with the machines - Time Time Spent with patient: 15-24 minutes Medications reviewed and adjusted accordingly: Yes Anticipated discharge: Home Within: within 24 hours - Plan Summary Plan Summary: Continues to current medications
[2019-03-17] MEDS: GUAIFENESIN 600 MG TABLET.SA PO SCH (17:50)
[2019-03-17] MEDS: ATORVASTATIN CALCIUM 20 MG TABLET PO SCH (21:31)
[2019-03-18] MEDS: IPRATROPIUM/ALBUTEROL 0.5-2.5 MG/3 ML AMPUL NEB SCH ×3 (00:16→08:58)
[2019-03-18 05:21] LABS: ABSOLUTE LYMPHOCYTES (AUTO) 1.9 10^3/uL (0.5-4.7); ABSOLUTE MONOCYTES (AUTO) 0.5 10^3/uL (0.1-1.4); ABSOLUTE NEUT (AUTO) 6.2 10^3/uL (1.7-8.2); BASOPHILS % (AUTO) 0.1 % (0-2); EOSINOPHILS % (AUTO) 0.4 % (0-6); HEMATOCRIT 36.9 % (37.9-51.0); HEMOGLOBIN 12.4 g/dL (13.5-17.0); LYMPHOCYTES % (AUTO) 22.1 % (13-45); MEAN CORPUSCULAR HEMOGLOBIN 30.9 pg (27.0-33.4); MEAN CORPUSCULAR HGB CONC 33.5 g/dL (32.0-36.0); MEAN CORPUSCULAR VOLUME 92 fl (80-97); MONOCYTES % (AUTO) 5.8 % (3-13); PLATELET COUNT 180 10^3/uL (150-450); RED BLOOD COUNT 4.01 10^6/uL (4.35-5.55); RED CELL DISTRIBUTION WIDTH 15.2 % (11.5-14.0); SEGMENTED NEUTROPHILS % (AUTO) 71.6 % (42-78); TOTAL CELLS COUNTED % (AUTO) 100 %; WHITE BLOOD COUNT 8.6 10^3/uL (4.0-10.5)
[2019-03-18 05:40] LABS: ANION GAP 9 (5-19); BLOOD UREA NITROGEN 36 mg/dL (7-20); CALCIUM 8.8 mg/dL (8.4-10.2); CARBON DIOXIDE 29 mmol/L (22-30); CHLORIDE 98 mmol/L (98-107); GLUCOSE 156 mg/dL (75-110); POTASSIUM 4.5 mmol/L (3.6-5.0)
[2019-03-18] MEDS: GABAPENTIN 100 MG CAPSULE PO SCH (05:42)
[2019-03-18] MEDS: INSULIN LISPRO 100 UNIT/ML 3 ML VIAL SUBCUT SCH ×4 (07:47→11:38)
[2019-03-18] MEDS: SITAGLIPTIN PHOSPHATE 50 MG TABLET PO SCH (07:53)
[2019-03-18] MEDS: METFORMIN HCL 500 MG TABLET PO SCH (07:54)
[2019-03-18] MEDS: FUROSEMIDE 20 MG TABLET PO SCH (07:54)
--- NOTE | 2019-03-18 08:41 | PDOC DISCHARGE SUMMARY ---
General - Admit/Disc Date/PCP Admission Date/Primary Care Provider: 03/15/19 15:33 ARTEMIO KAMINSKI MD Discharge Date: 03/18/19 - Discharge Diagnosis (1) Acute and chronic respiratory failure with hypercapnia Is this a current diagnosis for this admission?: Yes Summary: Continues to trilogy machine at night currently doing well follow-up with the Dr. Regalado (2) COPD exacerbation Is this a current diagnosis for this admission?: Yes Summary: Currently all resolved (3) Diabetes mellitus type 2 in obese Is this a current diagnosis for this admission?: Yes Summary: Continues to current medications (4) Hyperlipidemia Is this a current diagnosis for this admission?: Yes (5) Hypertension Is this a current diagnosis for this admission?: Yes Summary: Currently all stable (6) Noncompliance Is this a current diagnosis for this admission?: Yes Summary: Cussed with the patient about smoking counseling follow the machine at night every day and oxygen (7) Pneumonia Is this a current diagnosis for this admission?: Yes (8) Sleep apnea syndrome Is this a current diagnosis for this admission?: Yes - Additional Information Discharge Diet: Diabetic Prescriptions: Prednisone [Deltasone 20 mg Tablet] 20 mg PO DAILY #5 tablet Levofloxacin [Levaquin 500 mg Tablet] 500 mg PO DAILY #7 tablet Home Medications: Aspirin [Ecotrin 81 mg EC Tablet] 81 mg PO DAILY 03/15/19 Atorvastatin Calcium [Lipitor 20 mg Tablet] 20 mg PO DAILY 03/15/19 Diltiazem HCl [Diltiazem 24Hr ER (Cd)] 120 mg PO DAILY 03/15/19 Furosemide [Lasix 20 mg Tablet] 10 mg PO QAM 03/15/19 Gabapentin [Neurontin 100 mg Capsule] 100 mg PO Q8 03/15/19 Insulin Aspart [Novolog Insulin (Aspart) 100 unit/mL] 5 unit SQ MEALS 03/15/19 Insulin Detemir [Levemir] 36 unit SQ BID 03/15/19 Ipratropium/Albuterol Sulfate [Combivent Respimat 4 gm Mdi] 1 puff IH Q6HP PRN 03/15/19 Lisinopril [Prinivil 2.5 mg Tablet] 2.5 mg PO DAILY 03/15/19 Sitagliptin Phos/Metformin HCl [Janumet 50-500 mg Tablet] 1 tab PO BIDBS 03/15/19 Tamsulosin HCl [Flomax 0.4 mg Cap.sr] 0.4 mg PO DAILY 03/15/19 Levofloxacin [Levaquin 500 mg Tablet] 500 mg PO DAILY #7 tablet 03/18/19 Prednisone [Deltasone 20 mg Tablet] 20 mg PO DAILY #5 tablet 03/18/19 History of Present Illness History of Present Illness: ADÁN CHEUNG is a 53 year old male Is a 53-year-old male several hospital admissions due to the noncompliance supposed to use the trilogy machine at night and used oxygen but very noncompliance to use that continues to smoke came to the emergency department because of the respiratory distress via EMS received IV Solu-Medrol magnesium's on epi patient was put on a BiPAP in the ER and feeling better Also start complaining of a lot of cough and congestion since last several days Patient is denied any chest pain In the emergency department patient initial work-up is all stable except patient have a questionable pneumonia in the lung patient's cardiac enzyme EKG all stable Patient again very noncompliance several discussions with the patient and the family Admit the patient in [facility] Hospital Course Hospital Course: Patient is currently doing well pt was admitting in the hospital for the respiratory failure COPD acute exacerbations due to the noncompliance and continued smoke he is seen by Dr. Regalado's of pulmonary Start on IV antibiotics for the pneumonia and IV Solu-Medrol some respiratory treatments and a BiPAP Patient's response very well back to the baseline continues to oxygen at home's and continues the BiPAP at night Physical Exam Vital Signs: Temp Pulse Resp BP Pulse Ox 97.8 F 62 20 109/60 92 03/18/19 03:46 03/18/19 07:00 03/18/19 04:27 03/18/19 03:46 03/18/19 04:27 Intake & Output 03/17/19 03/18/19 03/19/19 06:59 06:59 06:59 Intake Total 1322 5909 Output Total 9300 7905 Balance -228 -256 Weight 118.3 kg 118.3 kg General appearance: PRESENT: no acute distress, well-developed, well-nourished Head exam: PRESENT: atraumatic, normocephalic Eye exam: PRESENT: conjunctiva pink, EOMI, PERRLA. ABSENT: scleral icterus Ear exam: PRESENT: normal external ear exam Mouth exam: PRESENT: moist, tongue midline Neck exam: PRESENT: full ROM. ABSENT: carotid bruit, JVD, lymphadenopathy, thyromegaly Respiratory exam: PRESENT: clear to auscultation allyson Cardiovascular exam: PRESENT: RRR. ABSENT: diastolic murmur, rubs, systolic murmur Pulses: PRESENT: normal dorsalis pedis pul, +2 pedal pulses bilateral Vascular exam: PRESENT: normal capillary refill GI/Abdominal exam: PRESENT: normal bowel sounds, soft. ABSENT: distended, guarding, mass, organolmegaly, rebound, tenderness Rectal exam: PRESENT: deferred Extremities exam: ABSENT: pedal edema Musculoskeletal exam: PRESENT: ambulatory Neurological exam: PRESENT: alert, awake, oriented to person, oriented to place, oriented to time, oriented to situation, CN II-XII grossly intact. ABSENT: mot or sensory deficit Psychiatric exam: PRESENT: appropriate affect, normal mood. ABSENT: homicidal ideation, suicidal ideation Skin exam: PRESENT: dry, intact, warm. ABSENT: cyanosis, rash Results Laboratory Results: 03/18/19 04:19 03/18/19 04:19 03/18/19 03/18/19 04:19 04:19 WBC 8.6 RBC 4.01 L Hgb 12.4 L Hct 36.9 L MCV 92 MCH 30.9 MCHC 33.5 RDW 15.2 H Plt Count 180 Seg Neutrophils % 71.6 Sodium 136.3 L Potassium 4.5 Chloride 98 Carbon Dioxide 29 Anion Gap 9 BUN 36 H Creatinine 1.11 Est GFR ( Amer) > 60 Glucose 156 H Calcium 8.8 03/15/19 03/15/19 03/15/19 12:58 16:10 16:10 Creatine Kinase 78 CK-MB (CK-2) 2.36 Troponin I < 0.012 < 0.012 03/15/19 03/15/19 03/15/19 17:04 21:05 21:05 Creatine Kinase 76 CK-MB (CK-2) 2.26 Troponin I Cancelled < 0.012 Impressions: Chest X-Ray 03/15/19 13:04 IMPRESSION: Minimal left retrocardiac opacity possibly atelectasis or infection. Blunting of the bilateral costophrenic angles possibly scarring versus small effusions. Qualifiers - * PATIENT BEING DISCHARGED WITH ANY OF THE FOLLOWING DIAGNOSIS: No VTE patient discharged on overlapping Therapy?: Yes Acute Heart Failure - Is this a Heart Failure Patient?: No Plan Time Spent: Greater than 30 Minutes - Discharge home with a stable conditions Discussed with the patient about smoking counseling and compliance of the medication and compliance of the using the BiPAP at night With the family regarding the patient's current conditions
[2019-03-18] MEDS: DOCUSATE SODIUM 100 MG CAPSULE PO SCH (09:38)
[2019-03-18] MEDS: PREDNISONE 20 MG TABLET PO SCH (09:50)
[2019-03-18] MEDS: TAMSULOSIN HCL 0.4 MG CAP.SR.24H PO SCH (09:50)
[2019-03-18] MEDS: DILTIAZEM HCL 120 MG CAP.SR.24H PO SCH (09:50)
[2019-03-18] MEDS: FAMOTIDINE 20 MG TABLET PO SCH (09:50)
[2019-03-18] MEDS: ENOXAPARIN SODIUM INJ 40 MG/0.4 ML DISP.SYRIN SUBCUT SCH (09:50)
[2019-03-18] MEDS: GUAIFENESIN 600 MG TABLET.SA PO SCH (09:50)
[2019-03-18] MEDS: LISINOPRIL 5 MG TABLET PO SCH (09:50)
[2019-03-18] MEDS: ASPIRIN 81 MG TABLET, ENT COATED PO SCH (09:50)
[2019-03-18] MEDS: INSULIN GLARGINE,HUM.REC.ANLOG 1,000 UNIT/10 ML VIAL SUBCUT SCH (09:51)
[2019-03-18] MEDS: LEVOFLOXACIN 500 MG/D5W RTU 500 MG/100 ML RTUPB IV SCH (09:51)
[2019-03-18 13:30] VITALS: BP 132/69
== END 2019-03-18 13:35 | disposition home health service (06) | DRG 189 ==
LOC: ER 12:54 → EH 15:33 → 3N 17:25
PROVIDERS: ADMIT Family Medicine; ATTEND Family Medicine
PROC: 5A09457 Assistance with Respiratory Ventilation, 24-96 Consecutive Hours, Continuous Positive Airway Pressure (ICD-10-PCS; principal; 2019-03-15)
DX: J96.22 Acute and chronic respiratory failure with hypercapnia (principal); J18.1 Lobar pneumonia, unspecified organism; J44.1 Chronic obstructive pulmonary disease with (acute) exacerbation; E66.2 Morbid (severe) obesity with alveolar hypoventilation; Z68.41 Body mass index [BMI] 40.0-44.9, adult; J44.0 Chronic obstructive pulmonary disease with (acute) lower respiratory infection; E11.9 Type 2 diabetes mellitus without complications; E78.5 Hyperlipidemia, unspecified; I10 Essential (primary) hypertension; F32.9 Major depressive disorder, single episode, unspecified; E78.00 Pure hypercholesterolemia, unspecified; F17.210 Nicotine dependence, cigarettes, uncomplicated; Z91.19 Patient's noncompliance with other medical treatment and regimen; Z79.4 Long term (current) use of insulin; Z79.899 Other long term (current) drug therapy; Z99.81 Dependence on supplemental oxygen; Z79.82 Long term (current) use of aspirin; Z88.1 Allergy status to other antibiotic agents; Z91.041 Radiographic dye allergy status; Z88.0 Allergy status to penicillin; Z91.018 Allergy to other foods
CPT/HCPCS: 36415; 71045; 80048; 80053; 82550; 82553; 82803; 82962; 83735; 84484; 85025; 85610; 87040; 93005; 93010; 94640; 94660; 99285; J1650; J1815; J1956; J2920; J7512; J7620

== ENCOUNTER 2019-04-20 19:57 | Emergency (ER) | payer MEDICARE, MEDICAID ==
--- NOTE | 2019-04-20 20:28 | ER Document Report ---
ED General - General Chief Complaint: Chest Pain Stated Complaint: CHEST PAIN Time Seen by Provider: 04/20/19 20:13 Primary Care Provider: ARTEMIO KAMINSKI MD [Primary Care Provider] - 04/23/19 Notes: Patient is a 53 year old male that comes to the Emergency Department for chief complaint of pain in his chest, shortness of breath, sweating, and lower extremity swelling. He received 324 mg of ASA by EMS and a nitroglycerin. He states at rest he feels fine but if he gets up his chest feels tight. He denies nausea/vomiting, abdominal pain, flank pain. He states he was discharged from a hospital in [facility] after he was admitted for 8 days for sepctic pneumonia, he states he was discharged on Friday (just over 2 days ago). He states he was not able to fill and take the PO antibiotics yet. He has a history of COPD (on oxygen reportedly 4.5 liters at all times), DMII, HTN. Patient uncertain of CHF history. He comes from home. TRAVEL OUTSIDE OF THE [place] IN LAST 30 DAYS: No - Related Data Allergies/Adverse Reactions: amoxicillin [Amoxicillin] Adverse Reaction (Verified 11/04/18 14:46) Hives Iodinated Contrast Media [IV Dye, Iodine Containing] Adverse Reaction (Verified 11/04/18 14:46) Hives Penicillins Adverse Reaction (Verified 11/04/18 14:46) Hives Apricots Adverse Reaction (Mild, Uncoded 11/04/18 14:46) Hives Past Medical History - General Information source: Patient - Social History Smoking Status: Current Some Day Smoker Frequency of alcohol use: None Drug Abuse: None Lives with: Family Family History: COPD, Hypertension Patient has suicidal ideation: No Patient has homicidal ideation: No - Past Medical History Cardiac Medical History: Reports: Hx Hypercholesterolemia, Hx Hypertension Denies: Hx Coronary Artery Disease, Hx Heart Attack Pulmonary Medical History: Reports: Hx Asthma, Hx Bronchitis, Hx COPD, Hx Pneumonia Denies: Hx Tuberculosis Neurological Medical History: Denies: Hx Cerebrovascular Accident, Hx Migraine, Hx Seizures Endocrine Medical History: Reports: Hx Diabetes Mellitus Type 2 Renal/ Medical History: Denies: Hx Peritoneal Dialysis GI Medical History: Denies: Hx Cirrhosis, Hx Crohn's Disease, Hx Ulcerative Colitis Musculoskeletal Medical History: Denies Hx Arthritis Skin Medical History: Denies Hx Psoriasis Psychiatric Medical History: Reports: Hx Depression Traumatic Medical History: Denies: Hx Traumatic Brain Injury Infectious Medical History: Denies: Hx HIV Past Surgical History: Reports: Hx Abdominal Surgery - hernia repair, Hx Cardiac Catheterization, Hx Cholecystectomy, Hx Orthopedic Surgery - R foot, Hx Tonsillectomy - Immunizations Hx Diphtheria, Pertussis, Tetanus Vaccination: Yes Hx Pneumococcal Vaccination: 04/20/13 Review of Systems - Review of Systems Constitutional: See HPI EENT: No symptoms reported Cardiovascular: See HPI Respiratory: See HPI Gastrointestinal: No symptoms reported Genitourinary: No symptoms reported Male Genitourinary: No symptoms reported Musculoskeletal: No symptoms reported Skin: No symptoms reported Hematologic/Lymphatic: No symptoms reported Neurological/Psychological: No symptoms reported Physical Exam - Vital signs Vitals: Resp 23 H 04/20/19 20:01 - Notes Notes: GENERAL: Alert, interacts well. No acute distress. HEAD: Normocephalic, atraumatic. EYES: Pupils equal, round, and reactive to light. Extraocular movements intact. ENT: Oral mucosa moist, tongue midline. Oropharynx unremarkable. Airway patent. NECK: Full range of motion. Supple. Trachea midline. LUNGS: Some coarse breath sounds and scattered rhonchi, no wheezes, rales, no respiratory distress, no tachypnea. HEART: Borderline tachycardia, normal rhythm, no murmur ABDOMEN: Soft, non-tender. Non-distended. EXTREMITIES: Moves all 4 extremities spontaneously. 1+ bilateral pitting edema. Normal radial and dorsalis pedis pulses bilaterally. No cyanosis. BACK: no cervical, thoracic, lumbar midline tenderness. No saddle anesthesia, normal distal neurovascular exam. Moves all extremities in full range of motion. NEUROLOGICAL: Alert and oriented x3. Normal speech. Cranial nerves II through XII grossly intact. PSYCH: Normal affect, normal mood. SKIN: Warm, dry, normal turgor. No rashes or lesions noted. Course - Re-evaluation Re-evalutation: Patient initially mildly tachycardic with some scattered rhonchi, however this resolved without intervention. He was given a DuoNeb, respiratory sounds improved, he did not have tachypnea or respiratory distress on initial evaluation. No fever. No hypoxia on the regular oxygen he wears at home. CBC shows mild leukocytosis, otherwise unremarkable. Chemistry nonspecific, BNP is not concerning elevated, troponin is not elevated, patient symptoms have been going on for over 24 hours reportedly. Chest x-ray also unremarkable. Venous blood gas shows normal pH and is nonspecific otherwise. Urinalysis unremarkable. On reevaluation patient has no current complaints. I discussed history, evaluation, and work-up with Dr. Ricks. She recommends the patient be given a dose of antibiotic and have his antibiotic filled if he does not have the prescription he was given, patient is unsure of the location or of the antibiotic so he was given a dose of doxycycline and given a prescription for this. She also recommends that if he can ambulate without difficulty or concerning desaturation he can be discharged home with close follow-up and return precautions. Patient was ambulated, lowest oxygen saturation was 92, he tolerated this very well. Patient given compression stockings which were placed on him. I discussed with patient. Patient will be discharged home with close follow-up instructions and return precautions. Patient states understanding and agreement. - Vital Signs Vital signs: Temp Pulse Resp BP Pulse Ox 98.1 F 22 H 134/68 H 97 04/21/19 00:52 04/21/19 01:01 04/21/19 01:01 04/21/19 01:01 - Laboratory Result Diagrams: 04/20/19 20:48 04/20/19 20:48 Laboratory results interpreted by me: 04/20/19 04/20/19 04/20/19 20:48 20:48 20:48 WBC 11.9 H RBC 3.82 L Hgb 11.5 L Hct 35.4 L RDW 15.4 H Absolute Neuts (auto) 9.6 H Seg Neutrophils % 80.9 H VBG HCO3 34.7 H Sodium 131.7 L Chloride 93 L Carbon Dioxide 33 H BUN 35 H Glucose 283 H Calcium 8.2 L Total Protein 5.0 L Albumin 2.9 L Urine Glucose (UA) 04/20/19 20:50 WBC RBC Hgb Hct RDW Absolute Neuts (auto) Seg Neutrophils % VBG HCO3 Sodium Chloride Carbon Dioxide BUN Glucose Calcium Total Protein Albumin Urine Glucose (UA) 150 H Discharge - Discharge Clinical Impression: Shortness of breath, Swelling of lower extremity Condition: Stable Disposition: HOME, SELF-CARE Additional Instructions: Heart failure, pneumonia, or other concerning findings are seen on your evaluation today. Elevate your legs when possible, wear the compression stockings to help get the fluid out of your legs, take the antibiotic you were prescribed or the prescribed antibiotic from tonight during your recovery from the pneumonia hospitalization. Follow-up closely with your primary care provider. Return if you worsen including fever, increased swelling, worsening shortness of breath/pain, or any other concerning symptoms. Prescriptions: Doxycycline Hyclate 100 mg PO BID #14 capsule Referrals: ARTEMIO KAMINSKI MD [Primary Care Provider] - 04/23/19
[2019-04-20 21:00] LABS: VENOUS BLOOD BASE EXCESS 7.7 mmol/L; VENOUS BLOOD HCO3 34.7 mmol/L (20-32); VENOUS BLOOD PCO2 57.3 mmHg (35-63); VENOUS BLOOD PH 7.4 (7.30-7.42)
[2019-04-20 21:03] LABS: ABSOLUTE BASOPHILS # (AUTO) 0.1 10^3/uL (0.0-0.2); ABSOLUTE EOSINOPHILS # (AUTO) 0.1 10^3/uL (0.0-0.6); ABSOLUTE LYMPHOCYTES (AUTO) 1.7 10^3/uL (0.5-4.7); ABSOLUTE MONOCYTES (AUTO) 0.4 10^3/uL (0.1-1.4); ABSOLUTE NEUT (AUTO) 9.6 10^3/uL (1.7-8.2); BASOPHILS % (AUTO) 0.4 % (0-2); EOSINOPHILS % (AUTO) 0.8 % (0-6); HEMATOCRIT 35.4 % (37.9-51.0); HEMOGLOBIN 11.5 g/dL (13.5-17.0); LYMPHOCYTES % (AUTO) 14.3 % (13-45); MEAN CORPUSCULAR HEMOGLOBIN 30.2 pg (27.0-33.4); MEAN CORPUSCULAR HGB CONC 32.6 g/dL (32.0-36.0); MEAN CORPUSCULAR VOLUME 93 fl (80-97); MONOCYTES % (AUTO) 3.6 % (3-13); PLATELET COUNT 188 10^3/uL (150-450); RED BLOOD COUNT 3.82 10^6/uL (4.35-5.55); RED CELL DISTRIBUTION WIDTH 15.4 % (11.5-14.0); SEGMENTED NEUTROPHILS % (AUTO) 80.9 % (42-78); TOTAL CELLS COUNTED % (AUTO) 100 %; WHITE BLOOD COUNT 11.9 10^3/uL (4.0-10.5)
[2019-04-20 21:13] LABS: ALBUMIN 2.9 g/dL (3.5-5.0); ALKALINE PHOSPHATASE 62 U/L (38-126); ANION GAP 6 (5-19); ASPARTATE AMINO TRANSFERASE 22 U/L (17-59); BILIRUBIN,DIRECT 0.2 mg/dL (0.0-0.4); BILIRUBIN,TOTAL 0.2 mg/dL (0.2-1.3); BLOOD UREA NITROGEN 35 mg/dL (7-20); CALCIUM 8.2 mg/dL (8.4-10.2); CARBON DIOXIDE 33 mmol/L (22-30); CHLORIDE 93 mmol/L (98-107); GLUCOSE 283 mg/dL (75-110); POTASSIUM 4.6 mmol/L (3.6-5.0)
[2019-04-20 21:24] LABS: NT PRO BNP 387 pg/mL (5-900); TROPONIN I < 0.012 ng/mL
[2019-04-20 21:38] LABS: APPEARANCE,URINE CLEAR; BILIRUBIN,URINE NEGATIVE (NEGATIVE); COLOR,URINE YELLOW; GLUCOSE, URINE 150 mg/dL (NEGATIVE); KETONES,URINE NEGATIVE (NEGATIVE); LEUKOCYTE ESTERASE,URINE NEGATIVE (NEGATIVE); NITRITE,URINE NEGATIVE (NEGATIVE); PROTEIN,URINE NEGATIVE (NEGATIVE); URINE SPECIFIC GRAVITY 1.019; UROBILINOGEN,URINE NEGATIVE mg/dL (<2.0)
--- NOTE | 2019-04-20 21:47 | RADIOLOGY REPORT (SQ) ---
XR CHEST 1 VIEW CLINICAL STATEMENT: shortness of breath, chest pain COMPARISON: 03/15/2019 FINDINGS: Heart is moderately enlarged. No pneumothorax. No pulmonary edema. Mild left basilar atelectatic changes. Possible mild right basilar atelectatic changes. IMPRESSION: Mild left basilar atelectatic changes.
[2019-04-20] MEDS ORDERED: METHYLPREDNISOLONE INJ 125 MG/2 ML SDV IV ONE (22:44)
[2019-04-20] MEDS ORDERED: IPRATROPIUM/ALBUTEROL 0.5-2.5 MG/3 ML AMPUL NEB ONE (22:44)
[2019-04-21] MEDS ORDERED: DOXYCYCLINE HYCLATE 100 MG TABLET PO ONE (01:14)
[2019-04-21] MEDS ORDERED: MAG HYDROX/AL HYDROX/SIMETH SUSP 30 ML UDCUP PO ONE (04:27)
[2019-04-21 05:49] VITALS: BP 102/45
--- NOTE | 2019-04-21 08:03 | EKG REPORT ---
SEVERITY:- BORDERLINE ECG - SINUS TACHYCARDIA BORDERLINE RIGHT AXIS DEVIATION BORDERLINE T ABNORMALITIES, ANT-LAT LEADS : Confirmed by: Tejal Gentile MD 21-Apr-2019 08:03:05
== END 2019-04-21 05:58 | disposition home or self-care (01) ==
LOC: ER 19:57
DX: J44.0 Chronic obstructive pulmonary disease with (acute) lower respiratory infection (principal); J18.9 Pneumonia, unspecified organism; Z91.128 Patient's intentional underdosing of medication regimen for other reason; T36.96XA Underdosing of unspecified systemic antibiotic, initial encounter; Z91.14 Patient's other noncompliance with medication regimen; Z99.81 Dependence on supplemental oxygen; M79.89 Other specified soft tissue disorders; R60.9 Edema, unspecified; R07.89 Other chest pain; R00.0 Tachycardia, unspecified; D72.829 Elevated white blood cell count, unspecified; E11.9 Type 2 diabetes mellitus without complications; F17.200 Nicotine dependence, unspecified, uncomplicated; I10 Essential (primary) hypertension; R06.02 Shortness of breath
CPT/HCPCS: 93005; 36415; 85025; 80053; 81001; 84484; 82803; 83605; 83880; 71045; 93010; A9270 ×2; J7620

== ENCOUNTER 2019-06-24 18:07 | Inpatient (IN) | payer MEDICARE, MEDICAID ==
--- NOTE | 2019-06-24 18:47 | ER Document Report ---
ED General - General Chief Complaint: Breathing Difficulty Stated Complaint: DIFFICULTY BREATHING Time Seen by Provider: 06/24/19 18:27 Primary Care Provider: ARTEMIO KAMINSKI MD [Primary Care Provider] - Follow up as needed Notes: 53 year old male with a h/o COPD presents to the ED via EMS on CPAP for acute respiratory distress. Patient states he had a fever last evening and this morning, started coughing today that is productive of green sputum. Patient was apparently in the high 80's on room air when EMS arrived, he normally wears 4L NC. Patient states he did not take off his oxygen., Patient must of desat urated rapidly when EMS took him off of his oxygen to transition him to their oxygen. EMS did start the patient on CPAP, gave 1 DuoNeb and brought him to the emergency department. Patient states that he has having pain on the right side of his back in his lungs that feels similar to when he had pneumonia 3 months ago. Denies any pain in his chest. Admits multiple episodes of intubation for his COPD in the past. TRAVEL OUTSIDE OF THE [place] IN LAST 30 DAYS: No - Related Data Allergies/Adverse Reactions: amoxicillin [Amoxicillin] Adverse Reaction (Verified 11/04/18 14:46) Hives Iodinated Contrast Media [IV Dye, Iodine Containing] Adverse Reaction (Verified 11/04/18 14:46) Hives Penicillins Adverse Reaction (Verified 11/04/18 14:46) Hives Apricots Adverse Reaction (Mild, Uncoded 11/04/18 14:46) Hives Past Medical History - General Information source: Patient - Social History Smoking Status: Former Smoker Frequency of alcohol use: None Drug Abuse: None Family History: COPD, Hypertension Patient has suicidal ideation: No Patient has homicidal ideation: No - Past Medical History Cardiac Medical History: Reports: Hx Hypercholesterolemia, Hx Hypertension Denies: Hx Coronary Artery Disease, Hx Heart Attack Pulmonary Medical History: Reports: Hx Asthma, Hx Bronchitis, Hx COPD, Hx Pneumonia Denies: Hx Tuberculosis Neurological Medical History: Denies: Hx Cerebrovascular Accident, Hx Migraine, Hx Seizures Endocrine Medical History: Reports: Hx Diabetes Mellitus Type 2 Renal/ Medical History: Denies: Hx Peritoneal Dialysis GI Medical History: Denies: Hx Cirrhosis, Hx Crohn's Disease, Hx Ulcerative Colitis Musculoskeletal Medical History: Denies Hx Arthritis Skin Medical History: Denies Hx Psoriasis Psychiatric Medical History: Reports: Hx Depression Traumatic Medical History: Denies: Hx Traumatic Brain Injury Infectious Medical History: Denies: Hx HIV Past Surgical History: Reports: Hx Abdominal Surgery - hernia repair, Hx Cardiac Catheterization, Hx Cholecystectomy, Hx Orthopedic Surgery - R foot, Hx Tonsillectomy - Immunizations Hx Diphtheria, Pertussis, Tetanus Vaccination: Yes Hx Pneumococcal Vaccination: 04/20/13 Review of Systems - Review of Systems Constitutional: See HPI, Fever EENT: No symptoms reported Cardiovascular: See HPI Respiratory: See HPI -: Yes All other systems reviewed and negative Physical Exam - Vital signs Vitals: Resp Pulse Ox 31 H 98 06/24/19 18:10 06/24/19 18:10 Interpretation: Tachypneic - Notes Notes: GENERAL: Alert, wearing BiPAP, appears mildly short of breath, morbidly obese. HEAD: Normocephalic, atraumatic EYES: Pupils equal, round and reactive to light, extraocular movements intact. ENT: Oral mucosa moist, tongue midline. NECK: Full range of motion, supple, trachea midline. LUNGS: Tachypneic, expiratory wheezing, no rales, no rhonchi, on BiPAP. . HEART: Regular rate and rhythm, no murmurs, gallops, rubs. ABDOMEN: Soft, nontender, bowel sounds present in all 4 quadrants. EXTREMITIES: Moves all 4 extremities spontaneously, no edema, radial and dorsalis pedis pulses 2/4 bilaterally. No cyanosis. NEUROLOGICAL: Alert and oriented x3, normal speech. PSYCH: Normal mood, normal affect. SKIN: Warm, Dry, normal turgor. Course - Re-evaluation Re-evalutation: 06/24/19 21:12 Patient arrived on CPAP, had to be transitioned to BiPAP, still has expiratory wheezing, work of breathing has decreased with BiPAP and with breathing treatments, chest x-ray shows a small left pleural effusion, CBC does not show any leukocytosis, there is anemia with hemoglobin 11.5, platelets normal, CMP shows slightly elevated potassium at 3.5, BUN elevated at 21, glucose elevated at 180, cardiac enzymes negative, urinalysis shows greater than 500 glucose, EKG is nonischemic, venous blood gas shows acidosis with pH of 7.27 and CO2 retention of 67.[address] Kaminski agrees to admit the patient to his service on the [facility], agrees to continue treatment there, we will call him with the results of the arterial blood gas if it shows a pH of less than 7.3. - Vital Signs Vital signs: Temp Pulse Resp BP Pulse Ox 99.2 F 26 H 135/67 H 100 06/24/19 18:11 06/24/19 18:17 06/24/19 18:17 06/24/19 18:17 - Laboratory Result Diagrams: 06/24/19 19:47 06/24/19 19:47 Laboratory results interpreted by me: 06/24/19 06/24/19 06/24/19 19:47 19:47 19:47 RBC 3.81 L Hgb 11.5 L Hct 34.8 L RDW 15.5 H VBG pH 7.27 L VBG pCO2 67.9 H* Potassium 5.3 H BUN 21 H Glucose 180 H AST 16 L Urine Glucose (UA) 06/24/19 19:47 RBC Hgb Hct RDW VBG pH VBG pCO2 Potassium BUN Glucose AST Urine Glucose (UA) >=500 H - EKG Interpretation by Me Additional EKG results interpreted by me: 06/24/19 18:47 EKG shows sinus rhythm rate 90, normal axis, normal intervals, no ST segment elevations or depressions, no T wave inversions per my interpretation. Critical Care Note - Critical Care Note Total time excluding time spent on procedures (mins): 40 Discharge - Discharge Clinical Impression: COPD with acute exacerbation, Acute and chronic respiratory failure with hypercapnia, Diabetes mellitus type 2 in obese, Hyperkalemia Condition: Fair Disposition: ADMITTED INPATIENT Admitting Provider: David Unit Admitted: IMCU Referrals: ARTEMIO KAMINSKI MD [Primary Care Provider] - Follow up as needed
--- NOTE | 2019-06-24 18:50 | RADIOLOGY REPORT (SQ) ---
EXAM DESCRIPTION: CHEST SINGLE VIEW COMPLETED DATE/TIME: 06/24/2019 6:33 pm REASON FOR STUDY: bed 15 db COMPARISON: 04/20/2019 EXAM PARAMETERS: NUMBER OF VIEWS: One view. TECHNIQUE: Single frontal radiographic view of the chest acquired. RADIATION DOSE: NA LIMITATIONS: None. FINDINGS: LUNGS AND PLEURA: Small left pleural effusion. No infiltrate or mass. MEDIASTINUM AND HILAR STRUCTURES: No masses. Contour normal. HEART AND VASCULAR STRUCTURES: Heart normal in size. Normal vasculature. BONES: No acute findings. HARDWARE: None in the chest. OTHER: No other significant finding. IMPRESSION: Small left pleural effusion. TECHNICAL DOCUMENTATION: JOB ID: [id number] [email or web address]- All Rights Reserved Reading location - IP/workstation name: [email or web address]
--- NOTE | 2019-06-24 19:13 | EKG REPORT ---
SEVERITY:- NORMAL ECG - SINUS RHYTHM : Confirmed by: Tejal Gentile MD 24-Jun-2019 19:12:20
[2019-06-24 20:08] LABS: ABSOLUTE BASOPHILS # (AUTO) 0.1 10^3/uL (0.0-0.2); ABSOLUTE LYMPHOCYTES (AUTO) 1.6 10^3/uL (0.5-4.7); ABSOLUTE MONOCYTES (AUTO) 0.5 10^3/uL (0.1-1.4); ABSOLUTE NEUT (AUTO) 6.8 10^3/uL (1.7-8.2); BASOPHILS % (AUTO) 0.9 % (0-2); EOSINOPHILS % (AUTO) 0.5 % (0-6); HEMATOCRIT 34.8 % (37.9-51.0); HEMOGLOBIN 11.5 g/dL (13.5-17.0); LYMPHOCYTES % (AUTO) 17.4 % (13-45); MEAN CORPUSCULAR HEMOGLOBIN 30.2 pg (27.0-33.4); MEAN CORPUSCULAR HGB CONC 33.1 g/dL (32.0-36.0); MEAN CORPUSCULAR VOLUME 91 fl (80-97); MONOCYTES % (AUTO) 5.6 % (3-13); PLATELET COUNT 216 10^3/uL (150-450); RED BLOOD COUNT 3.81 10^6/uL (4.35-5.55); RED CELL DISTRIBUTION WIDTH 15.5 % (11.5-14.0); SEGMENTED NEUTROPHILS % (AUTO) 75.6 % (42-78); TOTAL CELLS COUNTED % (AUTO) 100 %; WHITE BLOOD COUNT 9.1 10^3/uL (4.0-10.5)
[2019-06-24 20:11] LABS: VENOUS BLOOD BASE EXCESS 2.2 mmol/L; VENOUS BLOOD HCO3 30.8 mmol/L (20-32); VENOUS BLOOD PH 7.27 (7.30-7.42)
[2019-06-24 20:13] LABS: VENOUS BLOOD PCO2 67.9 mmHg (35-63)
[2019-06-24 20:22] LABS: APPEARANCE,URINE CLEAR; BILIRUBIN,URINE NEGATIVE (NEGATIVE); COLOR,URINE STRAW; GLUCOSE, URINE >=500 mg/dL (NEGATIVE); KETONES,URINE NEGATIVE (NEGATIVE); LEUKOCYTE ESTERASE,URINE NEGATIVE (NEGATIVE); NITRITE,URINE NEGATIVE (NEGATIVE); PROTEIN,URINE NEGATIVE (NEGATIVE); URINE SPECIFIC GRAVITY 1.014; UROBILINOGEN,URINE NEGATIVE mg/dL (<2.0)
[2019-06-24 20:26] LABS: ALKALINE PHOSPHATASE 61 U/L (38-126); ANION GAP 8 (5-19); ASPARTATE AMINO TRANSFERASE 16 U/L (17-59); BILIRUBIN,DIRECT 0.1 mg/dL (0.0-0.4); BILIRUBIN,TOTAL 0.2 mg/dL (0.2-1.3); BLOOD UREA NITROGEN 21 mg/dL (7-20); CALCIUM 9.7 mg/dL (8.4-10.2); CARBON DIOXIDE 30 mmol/L (22-30); CHLORIDE 101 mmol/L (98-107); CREATINE KINASE 103 U/L (55-170); GLUCOSE 180 mg/dL (75-110); POTASSIUM 5.3 mmol/L (3.6-5.0); TOTAL PROTEIN 6.6 g/dL (6.3-8.2)
[2019-06-24 20:38] LABS: CREATINE KINASE MB 2.72 ng/mL (<4.55)
[2019-06-24 20:39] LABS: TROPONIN I < 0.012 ng/mL
[2019-06-24] MEDS ORDERED: ALBUTEROL SULFATE 0.083% NEB 2.5 MG/3 ML AMPUL NEB ONE (21:17)
[2019-06-24] MEDS ORDERED: IPRATROPIUM/ALBUTEROL 0.5-2.5 MG/3 ML AMPUL NEB ONE (21:17)
[2019-06-24] MEDS ORDERED: METHYLPREDNISOLONE INJ 125 MG/2 ML SDV IV ONE (21:18)
[2019-06-24] MEDS ORDERED: ACETAMINOPHEN 325 MG TABLET PO PRN (21:22)
[2019-06-24 21:47] LABS: ARTERIAL BLOOD BASE EXCESS 2.1 mmol/L; ARTERIAL BLOOD HCO3 29.1 mmol/L (20-24); ARTERIAL BLOOD O2 SATURATION 98.2 % (94-98); ARTERIAL BLOOD PCO2 56.6 mmHg (35-45); ARTERIAL BLOOD PH 7.33 (7.35-7.45); ARTERIAL BLOOD PO2 124.5 mmHg (80-100); ARTERIAL BLOOD TOTAL CO2 30.8 mmol/L (23-27)
[2019-06-24 21:48] LABS: ARTERIAL BLOOD FIO2 45%
--- NOTE | 2019-06-24 21:51 | Progress Note ---
Provider Note Provider Note: pt seen and exam in er d/w pt and er physican admit for copd /respirtory failure
[2019-06-24 22:42] LABS: ANION GAP 8 (5-19); BLOOD UREA NITROGEN 21 mg/dL (7-20); CALCIUM 9.4 mg/dL (8.4-10.2); CARBON DIOXIDE 27 mmol/L (22-30); CHLORIDE 102 mmol/L (98-107); GLUCOSE 169 mg/dL (75-110); POTASSIUM 4.8 mmol/L (3.6-5.0)
[2019-06-24] MEDS: FAMOTIDINE 20 MG TABLET PO SCH (22:46)
[2019-06-24] MEDS: METHYLPREDNISOLONE INJ 40 MG/1 ML SDV IV SCH (22:46)
[2019-06-25] MEDS ORDERED: LEVOFLOXACIN 750 MG/D5W RTU 0 MG/0 ML RTUPB IV ONE (02:14)
[2019-06-25] MEDS ORDERED: GLUCAGON,HUMAN RECOMB 1 MG INJ IM PRN ×3 (03:00→08:28)
[2019-06-25] MEDS ORDERED: DEXTROSE 50%-WATER SYRINGE 12.5 GM/25 ML DOSE IV PRN (03:00)
[2019-06-25] MEDS ORDERED: DEXTROSE 50%-WATER SYRINGE 25 GM/50 ML DOSE IV PRN (03:00)
[2019-06-25] MEDS ORDERED: DEXTROSE 40% GEL 15 GM TUBE PO PRN ×5 (03:00→08:28)
[2019-06-25] MEDS ORDERED: DEXTROSE 40% GEL 15 GM TUBE X 2 PO PRN (03:00)
[2019-06-25] MEDS: METHYLPREDNISOLONE INJ 40 MG/1 ML SDV IV SCH ×3 (05:06→22:12)
[2019-06-25 06:30] LABS: ARTERIAL BLOOD BASE EXCESS -1.1 mmol/L; ARTERIAL BLOOD H2CO3 1.39 mmol/L (1.05-1.35); ARTERIAL BLOOD HCO3 24.8 mmol/L (20-24); ARTERIAL BLOOD O2 SATURATION 97.7 % (94-98); ARTERIAL BLOOD PCO2 46.1 mmHg (35-45); ARTERIAL BLOOD PH 7.35 (7.35-7.45); ARTERIAL BLOOD PO2 109.4 mmHg (80-100); ARTERIAL BLOOD TOTAL CO2 26.2 mmol/L (23-27)
[2019-06-25 06:31] LABS: ARTERIAL BLOOD FIO2 45%
[2019-06-25 06:33] LABS: HEMATOCRIT 35.3 % (37.9-51.0); HEMOGLOBIN 11.8 g/dL (13.5-17.0); MEAN CORPUSCULAR HEMOGLOBIN 30.5 pg (27.0-33.4); MEAN CORPUSCULAR HGB CONC 33.4 g/dL (32.0-36.0); MEAN CORPUSCULAR VOLUME 91 fl (80-97); PLATELET COUNT 193 10^3/uL (150-450); RED BLOOD COUNT 3.87 10^6/uL (4.35-5.55); RED CELL DISTRIBUTION WIDTH 15.8 % (11.5-14.0); WHITE BLOOD COUNT 6.7 10^3/uL (4.0-10.5)
[2019-06-25 06:58] LABS: CREATINE KINASE MB 2.53 ng/mL (<4.55)
[2019-06-25 07:02] LABS: TROPONIN I < 0.012 ng/mL
[2019-06-25] MEDS: INSULIN LISPRO 100 UNIT/ML 3 ML VIAL SUBCUT SCH ×5 (08:19→22:14)
[2019-06-25] MEDS ORDERED: DEXTROSE 50%-WATER 25 GM/50 ML DISP.SYRIN IV PRN ×4 (08:26→08:28)
[2019-06-25] MEDS: IPRATROPIUM/ALBUTEROL 0.5-2.5 MG/3 ML AMPUL NEB SCH ×4 (08:34→19:36)
[2019-06-25] MEDS: FAMOTIDINE 20 MG TABLET PO SCH ×2 (09:03→22:12)
[2019-06-25] MEDS: ENOXAPARIN SODIUM INJ 40 MG/0.4 ML DISP.SYRIN SUBCUT SCH (09:03)
--- NOTE | 2019-06-25 09:03 | RADIOLOGY REPORT (SQ) ---
EXAM DESCRIPTION: CT CHEST WITHOUT COMPLETED DATE/TIME: 06/25/2019 7:57 am REASON FOR STUDY: sob COMPARISON: 03/11/2018 CT, radiograph 06/24/2019 TECHNIQUE: CT scan performed of the chest without intravenous contrast. Images reviewed with lung, soft tissue and bone windows. Reconstructed coronal and sagittal MPR images reviewed. All images st ored on PACS. All CT scanners at this facility use dose modulation, iterative reconstruction, and/or weight based d osing when appropriate to reduce radiation dose to as low as reasonably achievable (ALARA). [facility]: Dose Right [facility]: CareDose [facility]: Dose Right [facility]: Teradose 4D [facility]: [employer] RADIATION DOSE: CT Rad equipment meets quality standard of care and radiation dose reduction techniq ues were employed. CTDIvol: 19.0 mGy. DLP: 731 mGy-cm. mGy. LIMITATIONS: No technical limitations. FINDINGS: LUNGS AND PLEURA: Subtle right upper lobe centrilobular ground-glass nodular opacities. S table linear left posterior opacity, likely scarring. There is a solid 7 mm left upper lobe paramedi an nodule (series 4, image 53). Mild linear left basilar opacities, likely atelectasis or scarring. No significant pleural effusion. Prominent left pericardial fat pad. No pneumothorax. No discrete masses. HILAR AND MEDIASTINAL STRUCTURES: No identified masses or abnormal nodes. No obvious aneurysm. HEART AND VASCULAR STRUCTURES: Scattered coronary atherosclerosis. Normal heart size. No pericardia l effusion. UPPER ABDOMEN: Diastases recti with herniation left liver and fat. Prior cholecystectomy. THYROID AND OTHER SOFT TISSUES: No masses. No adenopathy. BONES: No significant finding. HARDWARE: None in the chest. OTHER: No other significant findings. IMPRESSION: 1. Minimal subtle right upper lobe predominant centrilobular ground-glass nodular opaci ties, likely infectious/ inflammatory. No dense consolidation. No significant effusion. 2. 7 mm left upper lobe pulmonary nodule. Follow-up recommendations as below. 3. Scattered coronary atherosclerosis. COMMENT: [place] CRITERIA FOR FOLLOW-UP OF PULMONARY NODULES Incidentally detected new nodules in persons 35 or older. HIGH RISK: History of smoking or other known risk factors. 6-8mm single solid nodule: LOW RISK: CT 6-12 mo; then consider CT 18-24 mo. HIGH RISK: CT 6-12 mo; th en CT 18-24 mo. TECHNICAL DOCUMENTATION: JOB ID: [id number] Quality ID # [id number]: Final reports with documentation of one or more dose reduction techniques (e.g., Au tomated exposure control, adjustment of the mA and/or kV according to patient size, use of iterative reconstruction technique) 2010 [employer]- All Rights Reserved Reading location - IP/workstation name: [email or web address]
--- NOTE | 2019-06-25 09:27 | Progress Note ---
Provider Note Provider Note: Patient seen chart ,xrays reviewed for consult in progress hypoxic-hypercapnic continue NIPPV as you are doing add Pulmicort l+heladio doule unchanged follow as per Toya's
[2019-06-25] MEDS ORDERED: INSULIN GLARGINE,HUM.REC.ANLOG 1,000 UNIT/10 ML VIAL SUBCUT SCH (10:00)
--- NOTE | 2019-06-25 11:05 | PDOC H&P ---
History of Present Illness Admission Date/PCP: 06/24/19 21:21 ARTEMIO KAMINSKI MD Patient complains of: Respiratory distress History of Present Illness: ADÁN CHEUNG is a 53 year old male This is a 53-year-old male's with a chronic respiratory failure chronic on a BiPAP COPD type 2 diabetes hypertension hyperlipidemia morbid obesity top of that very noncompliance oxygen dependent several hospital admissions intubations due to the noncompliance came to the emergency department by EMS with a complaint of shortness of the breath patient was very hypoxic in the emergency department patient was put on the BiPAP back Patient's also giving IV Solu-Medrol respiratory treatments feel better when I saw the emergency department patient is back to the baseline's still required a BiPAP as usual admitting in the hospital for further evaluation and treatmentsIs complaining of a more cough and congestions Patient's denied any fever no chills Past Medical History Cardiac Medical History: Reports: Hyperlipidema, Hypertension Denies: Coronary Artery Disease, Myocardial Infarction Pulmonary Medical History: Reports: Asthma, Bronchitis, Chronic Obstructive Pulmonary Disease (COPD), Pneumonia Denies: Tuberculosis Neurological Medical History: Denies: Migraine, Seizures Endocrine Medical History: Reports: Diabetes Mellitus Type 2 GI Medical History: Denies: Cirrhosis, Crohn's Disease, Ulcerative Colitis Musculoskeltal Medical History: Denies: Arthritis Skin Medical History: Denies: Psoriasis Psychiatric Medical History: Reports: Depression Traumatic Medical History: Denies: Traumatic Brain Injury Hematology: Denies: Anemia Infectious Medical History: Denies: HIV Past Surgical History Past Surgical History: Reports: Cardiac Catheterization, Cholecystectomy, Orthopedic Surgery - R foot, Tonsillectomy Social History Information Source: Patient Smoking Status: Current Every Day Smoker Electronic Cigarette use?: No Frequency of Alcohol Use: None Hx Recreational Drug Use: No Drugs: None Hx Prescription Drug Abuse: No Family History Family History: None, COPD, Hypertension Parental Family History Reviewed: Yes Children Family History Reviewed: Yes Sibling(s) Family History Reviewed.: Yes Medication/Allergy Allergies/Adverse Reactions: amoxicillin [Amoxicillin] Adverse Reaction (Verified 11/04/18 14:46) Hives Iodinated Contrast Media [IV Dye, Iodine Containing] Adverse Reaction (Verified 11/04/18 14:46) Hives Penicillins Adverse Reaction (Verified 11/04/18 14:46) Hives Apricots Adverse Reaction (Mild, Uncoded 11/04/18 14:46) Hives Review of Systems Constitutional: ABSENT: chills, fever(s), headache(s), weight gain, weight loss Eyes: ABSENT: visual disturbances Ears: ABSENT: hearing changes Cardiovascular: PRESENT: dyspnea on exertion. ABSENT: chest pain, edema, orthropnea, palpitations Respiratory: PRESENT: cough. ABSENT: hemoptysis Gastrointestinal: ABSENT: abdominal pain, constipation, diarrhea, hematemesis, hematochezia, nausea, vomiting Genitourinary: ABSENT: dysuria, hematuria Musculoskeletal: ABSENT: joint swelling Integumentary: ABSENT: rash, wounds Neurological: ABSENT: abnormal gait, abnormal speech, confusion, dizziness, focal weakness, syncope Psychiatric: ABSENT: anxiety, depression, homidical ideation, suicidal ideation Endocrine: ABSENT: cold intolerance, heat intolerance, menstrual abnormalities, polydipsia, polyuria Hematologic/Lymphatic: ABSENT: easy bleeding, easy bruising, lymphadenopathy Physical Exam Vital Signs: Temp Pulse Resp BP Pulse Ox 97.6 F 85 25 H 139/78 H 97 06/25/19 07:38 06/25/19 08:34 06/25/19 08:34 06/25/19 07:38 06/25/19 08:34 Intake & Output 06/24/19 06/25/19 06/26/19 06:59 06:59 06:59 Intake Total 210 Balance 210 Weight 115.6 kg General appearance: PRESENT: mild distress, well-developed, well-nourished Head exam: PRESENT: atraumatic, normocephalic Eye exam: PRESENT: conjunctiva pink, EOMI, PERRLA. ABSENT: scleral icterus Ear exam: PRESENT: normal external ear exam Mouth exam: PRESENT: moist, tongue midline Neck exam: PRESENT: full ROM. ABSENT: carotid bruit, JVD, lymphadenopathy, thyromegaly Respiratory exam: PRESENT: decreased breath sounds, wheezes Cardiovascular exam: PRESENT: RRR. ABSENT: diastolic murmur, rubs, systolic murmur Pulses: PRESENT: normal dorsalis pedis pul, +2 pedal pulses bilateral Vascular exam: PRESENT: normal capillary refill GI/Abdominal exam: PRESENT: normal bowel sounds, soft. ABSENT: distended, guarding, mass, organolmegaly, rebound, tenderness Rectal exam: PRESENT: deferred Extremities exam: ABSENT: pedal edema Musculoskeletal exam: PRESENT: ambulatory Neurological exam: PRESENT: alert, awake, oriented to person, oriented to place, oriented to time, oriented to situation, CN II-XII grossly intact. ABSENT: jennifer r sensory deficit Psychiatric exam: PRESENT: appropriate affect, normal mood. ABSENT: homicidal ideation, suicidal ideation Skin exam: PRESENT: dry, intact, warm. ABSENT: cyanosis, rash Results Laboratory Results: 06/25/19 06:05 06/24/19 22:11 06/24/19 06/24/19 06/24/19 19:47 19:47 19:47 WBC 9.1 RBC 3.81 L Hgb 11.5 L Hct 34.8 L MCV 91 MCH 30.2 MCHC 33.1 RDW 15.5 H Plt Count 216 Seg Neutrophils % 75.6 Carbonic Acid HCO3/H2CO3 Ratio ABG pH ABG pCO2 ABG pO2 ABG HCO3 ABG O2 Saturation ABG Base Excess VBG pH 7.27 L VBG pCO2 67.9 H* VBG HCO3 30.8 VBG Base Excess 2.2 FiO2 Sodium 139.0 Potassium 5.3 H Chloride 101 Carbon Dioxide 30 Anion Gap 8 BUN 21 H Creatinine 1.00 Est GFR ( Amer) > 60 Glucose 180 H Calcium 9.7 Magnesium Total Bilirubin 0.2 AST 16 L Alkaline Phosphatase 61 Total Protein 6.6 Albumin 4.0 Urine Color Urine Appearance Urine pH Ur Specific [place] Urine Protein Urine Glucose (UA) Urine Ketones Urine Blood Urine Nitrite Ur Leukocyte Esterase Urine WBC (Auto) 06/24/19 06/24/19 06/24/19 19:47 21:26 22:11 WBC RBC Hgb Hct MCV MCH MCHC RDW Plt Count Seg Neutrophils % Carbonic Acid 1.70 H HCO3/H2CO3 Ratio 17:1 ABG pH 7.33 L ABG pCO2 56.6 H ABG pO2 124.5 H ABG HCO3 29.1 H ABG O2 Saturation 98.2 H ABG Base Excess 2.1 VBG pH VBG pCO2 VBG HCO3 VBG Base Excess FiO2 45% Sodium 137.4 Potassium 4.8 Chloride 102 Carbon Dioxide 27 Anion Gap 8 BUN 21 H Creatinine 0.99 Est GFR ( Amer) > 60 Glucose 169 H Calcium 9.4 Magnesium Total Bilirubin AST Alkaline Phosphatase Total Protein Albumin Urine Color STRAW Urine Appearance CLEAR Urine pH 5.0 Ur Specific [place] 1.014 Urine Protein NEGATIVE Urine Glucose (UA) >=500 H Urine Ketones NEGATIVE Urine Blood NEGATIVE Urine Nitrite NEGATIVE Ur Leukocyte Esterase NEGATIVE Urine WBC (Auto) 0 06/25/19 06/25/19 06/25/19 06:05 06:05 06:13 WBC 6.7 RBC 3.87 L Hgb 11.8 L Hct 35.3 L MCV 91 MCH 30.5 MCHC 33.4 RDW 15.8 H Plt Count 193 Seg Neutrophils % Carbonic Acid 1.39 H HCO3/H2CO3 Ratio 17:1 ABG pH 7.35 ABG pCO2 46.1 H ABG pO2 109.4 H ABG HCO3 24.8 H ABG O2 Saturation 97.7 ABG Base Excess -1.1 VBG pH VBG pCO2 VBG HCO3 VBG Base Excess FiO2 45% Sodium Potassium Chloride Carbon Dioxide Anion Gap BUN Creatinine Est GFR ( Amer) Glucose Calcium Magnesium 2.0 Total Bilirubin AST Alkaline Phosphatase Total Protein Albumin Urine Color Urine Appearance Urine pH Ur Specific [place] Urine Protein Urine Glucose (UA) Urine Ketones Urine Blood Urine Nitrite Ur Leukocyte Esterase Urine WBC (Auto) 06/24/19 06/24/19 06/25/19 19:47 19:47 06:05 Creatine Kinase 103 96 CK-MB (CK-2) 2.72 Troponin I < 0.012 06/25/19 06:05 Creatine Kinase CK-MB (CK-2) 2.53 Troponin I < 0.012 Impressions: Chest X-Ray 06/24/19 18:10 IMPRESSION: Small left pleural effusion. Chest CT 06/25/19 07:30 IMPRESSION: 1. Minimal subtle right upper lobe predominant centrilobular ground-glass nodular opacities, likely infectious/ inflammatory. No dense consolidation. No significant effusion. 2. 7 mm left upper lobe pulmonary nodule. Follow-up recommendations as below. 3. Scattered coronary atherosclerosis. Assessment & Plan - Diagnosis (1) Acute and chronic respiratory failure with hypercapnia Is this a current diagnosis for this admission?: Yes Plan: We will put the patient on a BiPAP consult the pulmonary (2) COPD with acute exacerbation Is this a current diagnosis for this admission?: Yes Plan: Continues to respiratory treatments and continues the steroids (3) Diabetes mellitus type 2 in obese Is this a current diagnosis for this admission?: Yes Plan: Denies to current insulin sliding scale (4) Hyperlipidemia Qualifiers: Hyperlipidemia type: unspecified Is this a current diagnosis for this admission?: Yes (5) Hypertension Qualifiers: Hypertension type: essential hypertension Is this a current diagnosis for this admission?: Yes Plan: Currently all stable (6) Noncompliance Is this a current diagnosis for this admission?: Yes Plan: Discussed with the patient about the compliance (7) Sleep apnea syndrome Qualifiers: Sleep apnea type: unspecified type Is this a current diagnosis for this admission?: Yes Plan: To use the BiPAP follow with the pulmonary (8) Tobacco abuse Is this a current diagnosis for this admission?: Yes Plan: Discussed with the patient about smoking counseling again - Time Time Spent: 50 to 70 Minutes Medications reviewed and adjusted accordingly: Yes Anticipated discharge: Home Within: Other - Inpatient Certification Based on my medical assessment, after consideration of the patient's comorbidities, presenting symptoms, or acuity I expect that the services needed warrant INPATIENT care.: Yes I certify that my determination is in accordance with my understanding of Medicare's requirements for reasonable and necessary INPATIENT services [42 CFR 412.3e].: Yes Medical Necessity: Significant Comorbidiites Make Outpatient Treatment Too Risky, Need Close Monitoring Due to Risk of Patient Decompensation, Need for IV Antibiotics Post Hospital Care: D/C Utility Accounts Director Documentation - Plan Summary Plan Summary: Admit the patient in IMCU continuous IV steroid nebulizer treatments start on IV antibiotic get the sputum culture patient is prone to be a more pneumonia and a several times consult the environmental restoration planner
[2019-06-25] MEDS ORDERED: (PENDING PHARMACY ID) (Ipratropium/Albuterol Sulfate [Combivent Respimat 4 Gm Mdi] 1 PUFF) IH SCH (12:00)
[2019-06-25] MEDS: SITAGLIPTIN PHOSPHATE 50 MG TABLET PO SCH ×2 (13:04→18:29)
[2019-06-25] MEDS: METFORMIN HCL 500 MG TABLET PO SCH ×2 (13:04→18:29)
[2019-06-25] MEDS: GABAPENTIN 100 MG CAPSULE PO SCH ×2 (13:04→22:12)
[2019-06-25] MEDS ORDERED: FLUTICASONE/UMECLIDIN/VILANTER 100-62.5-25 MCG/DOSE IH SCH (14:00)
[2019-06-25] MEDS ORDERED: IPRATROPIUM/ALBUTEROL 0.5-2.5 MG/3 ML AMPUL NEB SCH (14:00)
[2019-06-25] MEDS ORDERED: (PENDING PHARMACY ID) (Insulin Aspart [Novolog Flexpen] 5 UNIT) SQ SCH (16:00)
[2019-06-25] MEDS ORDERED: (PENDING PHARMACY ID) (Sitagliptin Phos/Metformin Hcl [Janumet 50-500 Mg Tablet] 1 EACH) PO SCH (18:00)
[2019-06-25] MEDS ORDERED: METFORMIN HCL 500 MG TABLET PO SCH (18:00)
[2019-06-25] MEDS ORDERED: SITAGLIPTIN PHOSPHATE 50 MG TABLET PO SCH (18:00)
[2019-06-25] MEDS ORDERED: INSULIN DETEMIR 50 UNIT SQ SCH (22:00)
[2019-06-25] MEDS: LEVOFLOXACIN 750 MG/D5W RTU 750 MG/150 ML RTUPB IV SCH (22:13)
[2019-06-25] MEDS: FLUTICASONE NASAL SPRAY 50 MCG/SPRY 120 SPRAY/16 GM NASL SCH (22:14)
[2019-06-25] MEDS ORDERED: INSULIN GLARGINE,HUM.REC.ANLOG 1,000 UNIT/10 ML VIAL (PYX) SUBCUT ONE (22:32)
[2019-06-25] MEDS: INSULIN GLARGINE,HUM.REC.ANLOG 1,000 UNIT/10 ML VIAL SUBCUT SCH (22:34)
[2019-06-26 04:39] LABS: HEMATOCRIT 33.3 % (37.9-51.0); HEMOGLOBIN 11.4 g/dL (13.5-17.0); MEAN CORPUSCULAR HEMOGLOBIN 30.7 pg (27.0-33.4); MEAN CORPUSCULAR HGB CONC 34.2 g/dL (32.0-36.0); MEAN CORPUSCULAR VOLUME 90 fl (80-97); PLATELET COUNT 193 10^3/uL (150-450); RED CELL DISTRIBUTION WIDTH 15.2 % (11.5-14.0); WHITE BLOOD COUNT 9.6 10^3/uL (4.0-10.5)
[2019-06-26] MEDS: METHYLPREDNISOLONE INJ 40 MG/1 ML SDV IV SCH ×3 (05:35→22:03)
[2019-06-26] MEDS: GABAPENTIN 100 MG CAPSULE PO SCH ×3 (05:36→22:08)
[2019-06-26] MEDS: SITAGLIPTIN PHOSPHATE 50 MG TABLET PO SCH ×2 (07:33→16:56)
[2019-06-26] MEDS: METFORMIN HCL 500 MG TABLET PO SCH ×2 (07:33→16:56)
[2019-06-26] MEDS: INSULIN LISPRO 100 UNIT/ML 3 ML VIAL SUBCUT SCH ×7 (08:03→22:09)
[2019-06-26] MEDS: IPRATROPIUM/ALBUTEROL 0.5-2.5 MG/3 ML AMPUL NEB SCH ×4 (09:04→19:58)
[2019-06-26] MEDS: TAMSULOSIN HCL 0.4 MG CAP.SR.24H PO SCH (09:27)
[2019-06-26] MEDS: FUROSEMIDE 20 MG TABLET PO SCH (09:27)
[2019-06-26] MEDS: FAMOTIDINE 20 MG TABLET PO SCH ×2 (09:27→22:08)
[2019-06-26] MEDS: ASPIRIN 81 MG TABLET, ENT COATED PO SCH (09:27)
[2019-06-26] MEDS: ATORVASTATIN CALCIUM 40 MG TABLET PO SCH (09:27)
[2019-06-26] MEDS: DILTIAZEM HCL 120 MG CAP.SR.24H PO SCH (09:27)
[2019-06-26] MEDS: ENOXAPARIN SODIUM INJ 40 MG/0.4 ML DISP.SYRIN SUBCUT SCH (09:28)
[2019-06-26] MEDS: LISINOPRIL 5 MG TABLET PO SCH (09:28)
[2019-06-26] MEDS: FLUTICASONE NASAL SPRAY 50 MCG/SPRY 120 SPRAY/16 GM NASL SCH ×2 (09:29→22:10)
[2019-06-26] MEDS: FLUTICASONE/UMECLIDIN/VILANTER 100-62.5-25 MCG/DOSE IH SCH (09:29)
[2019-06-26] MEDS ORDERED: (PENDING PHARMACY ID) (Lisinopril [Zestril] 2.5 MG) PO SCH (10:00)
[2019-06-26] MEDS ORDERED: (PENDING PHARMACY ID) (Diltiazem Hcl [Diltiazem 24hr Er] 120 MG) PO SCH (10:00)
[2019-06-26] MEDS ORDERED: (PENDING PHARMACY ID) (Empagliflozin [Jardiance] 10 MG) PO SCH (10:00)
[2019-06-26] MEDS: INSULIN GLARGINE,HUM.REC.ANLOG 1,000 UNIT/10 ML VIAL SUBCUT SCH ×2 (10:41→22:08)
--- NOTE | 2019-06-26 11:04 | PDOC PROGRESS REPORT ---
Subjective Progress Note for:: 06/26/19 Subjective:: Patient remain on BiPAP support. No fever or chills. No chest pain. No nausea, vomiting, or abdominal pain. Reason For Visit: RESPIRATORY DISTRESS Physical Exam Vital Signs: Temp Pulse Resp BP Pulse Ox 98.0 F 56 L 18 121/44 L 97 06/26/19 07:45 06/26/19 09:06 06/26/19 09:06 06/26/19 07:45 06/26/19 09:06 Intake & Output 06/25/19 06/26/19 06/27/19 06:59 06:59 06:59 Intake Total 210 2212 Output Total 2600 Balance 210 -388 Weight 115.6 kg 115 kg General appearance: PRESENT: mild distress - on BiPAP support, morbidly obese Head exam: PRESENT: atraumatic, normocephalic Eye exam: PRESENT: conjunctiva pink. ABSENT: scleral icterus Ear exam: PRESENT: normal external ear exam Mouth exam: PRESENT: moist Respiratory exam: PRESENT: clear to auscultation allyson, decreased breath sounds Cardiovascular exam: PRESENT: RRR. ABSENT: diastolic murmur, rubs, systolic murmur Vascular exam: ABSENT: pallor GI/Abdominal exam: PRESENT: normal bowel sounds, soft. ABSENT: distended, guarding, mass, organolmegaly, rebound, tenderness Extremities exam: ABSENT: pedal edema Neurological exam: PRESENT: alert, awake, oriented to person, oriented to place, oriented to time, oriented to situation, CN II-XII grossly intact. ABSENT: motor sensory deficit Psychiatric exam: PRESENT: appropriate affect, normal mood. ABSENT: homicidal ideation, suicidal ideation Skin exam: PRESENT: dry, warm Results Laboratory Results: 06/26/19 03:59 06/24/19 22:11 06/26/19 03:59 WBC 9.6 RBC 3.70 L Hgb 11.4 L Hct 33.3 L MCV 90 MCH 30.7 MCHC 34.2 RDW 15.2 H Plt Count 193 06/24/19 06/24/19 06/25/19 19:47 19:47 06:05 Creatine Kinase 103 96 CK-MB (CK-2) 2.72 Troponin I < 0.012 06/25/19 06:05 Creatine Kinase CK-MB (CK-2) 2.53 Troponin I < 0.012 Impressions: Chest X-Ray 06/24/19 18:10 IMPRESSION: Small left pleural effusion. Chest CT 06/25/19 07:30 IMPRESSION: 1. Minimal subtle right upper lobe predominant centrilobular ground-glass nodular opacities, likely infectious/ inflammatory. No dense consolidation. No significant effusion. 2. 7 mm left upper lobe pulmonary nodule. Follow-up recommendations as below. 3. Scattered coronary atherosclerosis. Assessment & Plan - Diagnosis (1) Acute and chronic respiratory failure with hypercapnia Is this a current diagnosis for this admission?: Yes Plan: Continue BiPAP support. Patient was instructed to use device as often as possible when sleeping. Obtain ABG in Am on BiPAP to assess effectiveness. (2) Lobar pneumonia Is this a current diagnosis for this admission?: Yes Plan: Continue IV Levofloxacin coverage. (3) Diabetes mellitus type 2 in obese Is this a current diagnosis for this admission?: Yes Plan: Maintain on current medication and dietary restriction management. (4) Hypertension Qualifiers: Hypertension type: essential hypertension Is this a current diagnosis for this admission?: Yes Plan: Continue current medication management. (5) BMI 40.0-44.9, adult Is this a current diagnosis for this admission?: Yes Plan: Continue current supportive and dietary restriction input. - Time Time Spent with patient: 25-34 minutes Level of Care: IMCU Medications reviewed and adjusted accordingly: Yes Anticipated discharge: Home with Homehealth Within: Other - Inpatient Certification Based on my medical assessment, after consideration of the patient's comorbidities, presenting symptoms, or acuity I expect that the services needed warrant INPATIENT care.: Yes I certify that my determination is in accordance with my understanding of Medicare's requirements for reasonable and necessary INPATIENT services [42 CFR 412.3e].: Yes Medical Necessity: Significant Comorbidiites Make Outpatient Treatment Too Risky, Need Close Monitoring Due to Risk of Patient Decompensation, Need For IV Fluids, Need For Continuous Telemetry Monitoring, Need for Nebulizer Therapy and Monitoring of Response, Need for IV Antibiotics, Risk of Complication if Not Cared For in Hospital, Risk of Diagnosis Which Will Require Inpatient Eval/Ca re/Monitoring Post Hospital Care: D/C Engineer First Assistant Documentation - Plan Summary Plan Summary: See covering attending physician orders for details about care plan.
[2019-06-26] MEDS: LEVOFLOXACIN 750 MG/D5W RTU 750 MG/150 ML RTUPB IV SCH (22:07)
[2019-06-27 04:34] LABS: HEMOGLOBIN 11.7 g/dL (13.5-17.0); MEAN CORPUSCULAR HEMOGLOBIN 30.9 pg (27.0-33.4); MEAN CORPUSCULAR HGB CONC 34.3 g/dL (32.0-36.0); MEAN CORPUSCULAR VOLUME 90 fl (80-97); PLATELET COUNT 206 10^3/uL (150-450); RED BLOOD COUNT 3.78 10^6/uL (4.35-5.55); RED CELL DISTRIBUTION WIDTH 15.2 % (11.5-14.0); WHITE BLOOD COUNT 9.3 10^3/uL (4.0-10.5)
[2019-06-27] MEDS: GABAPENTIN 100 MG CAPSULE PO SCH ×3 (07:01→22:35)
[2019-06-27] MEDS: METHYLPREDNISOLONE INJ 40 MG/1 ML SDV IV SCH ×3 (07:01→22:35)
[2019-06-27] MEDS: SITAGLIPTIN PHOSPHATE 50 MG TABLET PO SCH ×2 (07:53→16:20)
[2019-06-27] MEDS: INSULIN LISPRO 100 UNIT/ML 3 ML VIAL SUBCUT SCH ×7 (07:53→22:28)
[2019-06-27] MEDS: METFORMIN HCL 500 MG TABLET PO SCH ×2 (07:53→16:20)
[2019-06-27] MEDS: IPRATROPIUM/ALBUTEROL 0.5-2.5 MG/3 ML AMPUL NEB SCH ×4 (08:13→20:35)
[2019-06-27] MEDS: DILTIAZEM HCL 120 MG CAP.SR.24H PO SCH (09:29)
[2019-06-27] MEDS: LISINOPRIL 5 MG TABLET PO SCH (09:29)
[2019-06-27] MEDS: FUROSEMIDE 20 MG TABLET PO SCH (09:29)
[2019-06-27] MEDS: ASPIRIN 81 MG TABLET, ENT COATED PO SCH (09:29)
[2019-06-27] MEDS: FAMOTIDINE 20 MG TABLET PO SCH ×2 (09:29→22:35)
[2019-06-27] MEDS: TAMSULOSIN HCL 0.4 MG CAP.SR.24H PO SCH (09:30)
[2019-06-27] MEDS: ATORVASTATIN CALCIUM 40 MG TABLET PO SCH (09:30)
[2019-06-27] MEDS: ENOXAPARIN SODIUM INJ 40 MG/0.4 ML DISP.SYRIN SUBCUT SCH (09:30)
[2019-06-27] MEDS: FLUTICASONE/UMECLIDIN/VILANTER 100-62.5-25 MCG/DOSE IH SCH (09:31)
[2019-06-27] MEDS: FLUTICASONE NASAL SPRAY 50 MCG/SPRY 120 SPRAY/16 GM NASL SCH ×2 (09:31→22:34)
[2019-06-27] MEDS: INSULIN GLARGINE,HUM.REC.ANLOG 1,000 UNIT/10 ML VIAL SUBCUT SCH ×2 (09:38→22:34)
--- NOTE | 2019-06-27 14:55 | PDOC PROGRESS REPORT ---
Subjective Progress Note for:: 06/27/19 Subjective:: Patient denied fever or chills. No chest pain. No nausea, vomiting, or abdominal pain. He remain on BiPAP support. Reason For Visit: RESPIRATORY DISTRESS Physical Exam Vital Signs: Temp Pulse Resp BP Pulse Ox 97.5 F 57 L 17 131/52 H 98 06/27/19 11:34 06/27/19 12:29 06/27/19 12:29 06/27/19 11:34 06/27/19 12:29 Intake & Output 06/26/19 06/27/19 06/28/19 06:59 06:59 06:59 Intake Total 2212 2312 900 Output Total 2600 1975 600 Balance -388 337 300 Weight 115 kg 114.6 kg Physical Exam: General appearance: PRESENT: mild distress - on BiPAP support, morbidly obese Head exam: PRESENT: atraumatic, normocephalic Eye exam: PRESENT: conjunctiva pink. ABSENT: pallor, scleral icterus Ear exam: PRESENT: normal external ear exam Mouth exam: PRESENT: moist Respiratory exam: PRESENT: clear to auscultation allyson, decreased breath sounds Cardiovascular exam: PRESENT: RRR. ABSENT: diastolic murmur, rubs, systolic murmur GI/Abdominal exam: PRESENT: normal bowel sounds, soft. ABSENT: distended, guarding, mass, organomegaly, rebound, tenderness Extremities exam: ABSENT: pedal edema Neurological exam: PRESENT: alert, awake, oriented to person, oriented to place, oriented to time, oriented to situation, CN II-XII grossly intact. ABSENT: motor sensory deficit Psychiatric exam: PRESENT: appropriate affect, normal mood. ABSENT: homicidal ideation, suicidal ideation Skin exam: PRESENT: dry, warm Results Laboratory Results: 06/27/19 03:56 06/24/19 22:11 06/27/19 03:56 WBC 9.3 RBC 3.78 L Hgb 11.7 L Hct 34.0 L MCV 90 MCH 30.9 MCHC 34.3 RDW 15.2 H Plt Count 206 06/24/19 06/24/19 06/25/19 19:47 19:47 06:05 Creatine Kinase 103 96 CK-MB (CK-2) 2.72 Troponin I < 0.012 06/25/19 06:05 Creatine Kinase CK-MB (CK-2) 2.53 Troponin I < 0.012 Impressions: Chest X-Ray 06/24/19 18:10 IMPRESSION: Small left pleural effusion. Chest CT 06/25/19 07:30 IMPRESSION: 1. Minimal subtle right upper lobe predominant centrilobular ground-glass nodular opacities, likely infectious/ inflammatory. No dense consolidation. No significant effusion. 2. 7 mm left upper lobe pulmonary nodule. Follow-up recommendations as below. 3. Scattered coronary atherosclerosis. Assessment & Plan - Diagnosis (1) Acute and chronic respiratory failure with hypercapnia Is this a current diagnosis for this admission?: Yes (2) Lobar pneumonia Is this a current diagnosis for this admission?: Yes (3) Diabetes mellitus type 2 in obese Is this a current diagnosis for this admission?: Yes (4) Hypertension Qualifiers: Hypertension type: essential hypertension Is this a current diagnosis for this admission?: Yes (5) BMI 40.0-44.9, adult Is this a current diagnosis for this admission?: Yes - Time Time Spent with patient: 25-34 minutes Level of Care: IMCU Medications reviewed and adjusted accordingly: Yes Anticipated discharge: Home with Homehealth Within: Other - Inpatient Certification Based on my medical assessment, after consideration of the patient's comorbidities, presenting symptoms, or acuity I expect that the services needed warrant INPATIENT care.: Yes I certify that my determination is in accordance with my understanding of Medicare's requirements for reasonable and necessary INPATIENT services [42 CFR 412.3e].: Yes Medical Necessity: Significant Comorbidiites Make Outpatient Treatment Too Risky, Need Close Monitoring Due to Risk of Patient Decompensation, Need For Continuous Telemetry Monitoring, Need for Nebulizer Therapy and Monitoring of Response, Risk of Complication if Not Cared For in Hospital, Risk of Diagnosis Which Will Require Inpatient Eval/Care/Monitoring Post Hospital Care: D/C Electrician Supervisor Airplane Documentation - Plan Summary Plan Summary: Continue current medication management. Follow up on pending labs.
[2019-06-27] MEDS: LEVOFLOXACIN 750 MG/D5W RTU 750 MG/150 ML RTUPB IV SCH (22:33)
[2019-06-28] MEDS: METHYLPREDNISOLONE INJ 40 MG/1 ML SDV IV SCH (06:34)
[2019-06-28] MEDS: GABAPENTIN 100 MG CAPSULE PO SCH ×3 (06:36→22:24)
[2019-06-28] MEDS: IPRATROPIUM/ALBUTEROL 0.5-2.5 MG/3 ML AMPUL NEB SCH ×4 (08:02→19:57)
[2019-06-28] MEDS: INSULIN LISPRO 100 UNIT/ML 3 ML VIAL SUBCUT SCH ×7 (08:17→22:26)
[2019-06-28] MEDS: METFORMIN HCL 500 MG TABLET PO SCH ×2 (08:22→17:01)
[2019-06-28] MEDS: SITAGLIPTIN PHOSPHATE 50 MG TABLET PO SCH ×2 (08:22→17:01)
--- NOTE | 2019-06-28 09:08 | PDOC PROGRESS REPORT ---
Subjective Progress Note for:: 06/28/19 Subjective:: Patient is currently doing well Patient's denied any chest pain no short of breath patient's wants to go home Reason For Visit: RESPIRATORY DISTRESS Physical Exam Vital Signs: Temp Pulse Resp BP Pulse Ox 97.4 F 59 L 16 119/61 96 06/28/19 07:48 06/28/19 08:03 06/28/19 08:03 06/28/19 07:48 06/28/19 08:03 Intake & Output 06/27/19 06/28/19 06/29/19 06:59 06:59 06:59 Intake Total 2312 2380 Output Total 1975 1425 Balance 337 955 Weight 114.6 kg 115.3 kg General appearance: PRESENT: no acute distress, well-developed, well-nourished Head exam: PRESENT: atraumatic, normocephalic Eye exam: PRESENT: conjunctiva pink, EOMI, PERRLA. ABSENT: scleral icterus Ear exam: PRESENT: normal external ear exam Mouth exam: PRESENT: moist, tongue midline Neck exam: PRESENT: full ROM. ABSENT: carotid bruit, JVD, lymphadenopathy, thyromegaly Respiratory exam: PRESENT: clear to auscultation allyson Cardiovascular exam: PRESENT: RRR. ABSENT: diastolic murmur, rubs, systolic murmur Pulses: PRESENT: normal dorsalis pedis pul, +2 pedal pulses bilateral Vascular exam: PRESENT: normal capillary refill GI/Abdominal exam: PRESENT: normal bowel sounds, soft. ABSENT: distended, guarding, mass, organolmegaly, rebound, tenderness Rectal exam: PRESENT: deferred Musculoskeletal exam: PRESENT: ambulatory Neurological exam: PRESENT: alert, awake, oriented to person, oriented to place, oriented to time, oriented to situation, CN II-XII grossly intact. ABSENT: motor sensory deficit Psychiatric exam: PRESENT: appropriate affect, normal mood. ABSENT: homicidal ideation, suicidal ideation Skin exam: PRESENT: dry, intact, warm. ABSENT: cyanosis, rash Results Laboratory Results: 06/27/19 03:56 06/24/19 22:11 06/24/19 06/24/19 06/25/19 19:47 19:47 06:05 Creatine Kinase 103 96 CK-MB (CK-2) 2.72 Troponin I < 0.012 06/25/19 06:05 Creatine Kinase CK-MB (CK-2) 2.53 Troponin I < 0.012 Impressions: Chest X-Ray 06/24/19 18:10 IMPRESSION: Small left pleural effusion. Chest CT 06/25/19 07:30 IMPRESSION: 1. Minimal subtle right upper lobe predominant centrilobular ground-glass nodular opacities, likely infectious/ inflammatory. No dense consolidation. No significant effusion. 2. 7 mm left upper lobe pulmonary nodule. Follow-up recommendations as below. 3. Scattered coronary atherosclerosis. Assessment & Plan - Diagnosis (1) Acute and chronic respiratory failure with hypercapnia Is this a current diagnosis for this admission?: Yes Plan: Currently all improving (2) COPD with acute exacerbation Is this a current diagnosis for this admission?: Yes Plan: We will discontinues the IV start on a p.o. steroid (3) Diabetes mellitus type 2 in obese Is this a current diagnosis for this admission?: Yes Plan: Denies to current insulin sliding scale (4) Hyperlipidemia Qualifiers: Hyperlipidemia type: unspecified Is this a current diagnosis for this admission?: Yes (5) Hypertension Qualifiers: Hypertension type: essential hypertension Is this a current diagnosis for this admission?: Yes Plan: Currently all stable (6) Noncompliance Is this a current diagnosis for this admission?: Yes Plan: Discussed with the patient about the compliance (7) Sleep apnea syndrome Qualifiers: Sleep apnea type: unspecified type Is this a current diagnosis for this admission?: Yes (8) Tobacco abuse Is this a current diagnosis for this admission?: Yes - Time Time Spent with patient: 15-24 minutes Level of Care: IMCU Medications reviewed and adjusted accordingly: Yes Anticipated discharge: Home with Homehealth Within: within 24 hours - Plan Summary Plan Summary: Continues to current medications we will switch everything IV to the p.o. if remains stable discharge tomorrow
[2019-06-28] MEDS: ENOXAPARIN SODIUM INJ 40 MG/0.4 ML DISP.SYRIN SUBCUT SCH (09:34)
[2019-06-28] MEDS: INSULIN GLARGINE,HUM.REC.ANLOG 1,000 UNIT/10 ML VIAL SUBCUT SCH ×2 (09:34→22:25)
[2019-06-28] MEDS: FLUTICASONE/UMECLIDIN/VILANTER 100-62.5-25 MCG/DOSE IH SCH (09:34)
[2019-06-28] MEDS: FLUTICASONE NASAL SPRAY 50 MCG/SPRY 120 SPRAY/16 GM NASL SCH ×2 (09:34→22:26)
[2019-06-28] MEDS: ASPIRIN 81 MG TABLET, ENT COATED PO SCH (09:35)
[2019-06-28] MEDS: TAMSULOSIN HCL 0.4 MG CAP.SR.24H PO SCH (09:35)
[2019-06-28] MEDS: PREDNISONE 20 MG TABLET PO SCH ×2 (09:35→20:22)
[2019-06-28] MEDS: ATORVASTATIN CALCIUM 40 MG TABLET PO SCH (09:35)
[2019-06-28] MEDS: FUROSEMIDE 20 MG TABLET PO SCH (09:36)
[2019-06-28] MEDS: FAMOTIDINE 20 MG TABLET PO SCH ×2 (09:37→22:24)
[2019-06-28] MEDS: LISINOPRIL 5 MG TABLET PO SCH (09:37)
[2019-06-28] MEDS: LEVOFLOXACIN 500 MG TABLET PO SCH (09:37)
[2019-06-28] MEDS: DILTIAZEM HCL 120 MG CAP.SR.24H PO SCH (09:37)
[2019-06-29] MEDS: GABAPENTIN 100 MG CAPSULE PO SCH (05:58)
[2019-06-29] MEDS: IPRATROPIUM/ALBUTEROL 0.5-2.5 MG/3 ML AMPUL NEB SCH ×2 (08:20→12:01)
--- NOTE | 2019-06-29 08:41 | PDOC DISCHARGE SUMMARY ---
Impression - Admit/DC Date/PCP Admission Date/Primary Care Provider: 06/24/19 21:21 ARTEMIO KAMINSKI MD Discharge Date: 06/29/19 - Discharge Diagnosis (1) Acute and chronic respiratory failure with hypercapnia Is this a current diagnosis for this admission?: Yes (2) COPD with acute exacerbation Is this a current diagnosis for this admission?: Yes (3) Diabetes mellitus type 2 in obese Is this a current diagnosis for this admission?: Yes (4) Hyperlipidemia Is this a current diagnosis for this admission?: Yes (5) Hypertension Is this a current diagnosis for this admission?: Yes (6) Noncompliance Is this a current diagnosis for this admission?: Yes (7) Sleep apnea syndrome Is this a current diagnosis for this admission?: Yes (8) Tobacco abuse Is this a current diagnosis for this admission?: Yes - Additional Information Discharge Diet: Diabetic Discharge Activity: Activity As Tolerated Referrals: ARTEMIO KAMINSKI MD [Primary Care Provider] - 07/05/19 1:45 pm Prescriptions: Levofloxacin [Levaquin 500 mg Tablet] 500 mg PO DAILY #7 tablet Home Medications: Aspirin [Adult Low Dose Aspirin EC] 81 mg PO DAILY 06/25/19 Atorvastatin Calcium [Lipitor 40 mg Tablet] 40 mg PO DAILY 06/25/19 Diltiazem HCl [Diltiazem 24Hr ER] 120 mg PO DAILY 06/25/19 Empagliflozin [Jardiance] 10 mg PO DAILY 06/25/19 Fluticasone Propionate [Flonase Nasal [place] 50 Mcg/[place] 16 gm] 1 spray NASL Q12 06/25/19 Fluticasone/Umeclidin/Vilanter [Trelegy 100-62.5-25 Mcg Ellipta 14 Dose/Dpi] 1 puff IH DAILY 06/25/19 Furosemide [Lasix 20 mg Tablet] 10 mg PO DAILY 06/25/19 Gabapentin [Neurontin 100 mg Capsule] 100 mg PO TID 06/25/19 Insulin Aspart [Novolog Flexpen] 5 unit SQ AC 06/25/19 Insulin Detemir [Levemir] 65 unit SQ Q12 06/25/19 Ipratropium/Albuterol Sulfate [Combivent Respimat 4 gm Mdi] 1 puff IH Q6 06/25/19 Lisinopril [Zestril] 2.5 mg PO DAILY 06/25/19 Sitagliptin Phos/Metformin HCl [Janumet 50-500 mg Tablet] 1 each PO BID 06/25/19 Tamsulosin HCl [Flomax] 0.4 mg PO DAILY 06/25/19 Levofloxacin [Levaquin 500 mg Tablet] 500 mg PO DAILY #7 tablet 06/29/19 History of Present Illiness History of Present Illness: ADÁN CHEUNG is a 53 year old male This is a 53-year-old male's with a chronic respiratory failure chronic on a BiPAP COPD type 2 diabetes hypertension hyperlipidemia morbid obesity top of that very noncompliance oxygen dependent several hospital admissions intubations due to the noncompliance came to the emergency department by EMS with a complaint of shortness of the breath patient was very hypoxic in the emergency department patient was put on the BiPAP back Patient's also giving IV Solu-Medrol respiratory treatments feel better when I saw the emergency department patient is back to the baseline's still required a BiPAP as usual admitting in the hospital for further evaluation and treatmentsIs complaining of a more cough and congestions Patient's denied any fever no chills Hospital Course Hospital Course: This is a 53-year-old male admitting in the hospital for the COPD acute exacerbation and respiratory failure on chronic disease patient was put on IV st eroid nebulizer treatments and patient response very well Switch to the p.o. steroids and p.o. antibiotics Since seen by Dr. Regalado's pulmonary Also use of BiPAP when he lay down and patient is pH was normal and PCO2 within Back to the patient's limits Patient's p.o. intake is good patient is walking the hallway with full liter nasal cannula which baseline at home's She is very anxious to go home's Physical Exam Vital Signs: Temp Pulse Resp BP Pulse Ox 97.4 F 83 13 103/48 L 100 06/29/19 03:10 06/29/19 07:00 06/29/19 04:15 06/29/19 03:10 06/29/19 03:10 Intake & Output 06/28/19 06/29/19 06/30/19 06:59 06:59 06:59 Intake Total 2380 3057 Output Total 1425 1475 Balance 955 1582 Weight 115.3 kg 113.3 kg General appearance: PRESENT: no acute distress, well-developed, well-nourished Head exam: PRESENT: atraumatic, normocephalic Eye exam: PRESENT: conjunctiva pink, EOMI, PERRLA. ABSENT: scleral icterus Ear exam: PRESENT: normal external ear exam Mouth exam: PRESENT: moist, tongue midline Neck exam: ABSENT: carotid bruit, JVD, lymphadenopathy, thyromegaly Respiratory exam: PRESENT: clear to auscultation allyson. ABSENT: rales, rhonchi, wheezes Cardiovascular exam: PRESENT: RRR. ABSENT: diastolic murmur, rubs, systolic murmur Pulses: PRESENT: normal dorsalis pedis pul Vascular exam: PRESENT: normal capillary refill GI/Abdominal exam: PRESENT: normal bowel sounds, soft. ABSENT: distended, guarding, mass, organolmegaly, rebound, tenderness Rectal exam: PRESENT: deferred Extremities exam: PRESENT: full ROM. ABSENT: calf tenderness, clubbing, pedal edema Neurological exam: PRESENT: alert, awake, oriented to person, oriented to place, oriented to time, oriented to situation, CN II-XII grossly intact. ABSENT: motor sensory deficit Psychiatric exam: PRESENT: appropriate affect, normal mood. ABSENT: homicidal ideation, suicidal ideation Skin exam: PRESENT: dry, intact, warm. ABSENT: cyanosis, rash Results Laboratory Results: WBC 9.3 10^3/uL (4.0-10.5) 06/27/19 03:56 RBC 3.78 10^6/uL (4.35-5.55) L 06/27/19 03:56 Hgb 11.7 g/dL (13.5-17.0) L 06/27/19 03:56 Hct 34.0 % (37.9-51.0) L 06/27/19 03:56 MCV 90 fl (80-97) 06/27/19 03:56 MCH 30.9 pg (27.0-33.4) 06/27/19 03:56 MCHC 34.3 g/dL (32.0-36.0) 06/27/19 03:56 RDW 15.2 % (11.5-14.0) H 06/27/19 03:56 Plt Count 206 10^3/uL (150-450) 06/27/19 03:56 Lymph % (Auto) 17.4 % (13-45) 06/24/19 19:47 Weber % (Auto) 5.6 % (3-13) 06/24/19 19:47 Eos % (Auto) 0.5 % (0-6) 06/24/19 19:47 Baso % (Auto) 0.9 % (0-2) 06/24/19 19:47 Absolute Neuts (auto) 6.8 10^3/uL (1.7-8.2) 06/24/19 19:47 Absolute Lymphs (auto) 1.6 10^3/uL (0.5-4.7) 06/24/19 19:47 Absolute Monos (auto) 0.5 10^3/uL (0.1-1.4) 06/24/19 19:47 Absolute Eos (auto) 0.0 10^3/uL (0.0-0.6) 06/24/19 19:47 Absolute Basos (auto) 0.1 10^3/uL (0.0-0.2) 06/24/19 19:47 Seg Neutrophils % 75.6 % (42-78) 06/24/19 19:47 Carbonic Acid 1.39 mmol/L (1.05-1.35) H 06/25/19 06:13 HCO3/H2CO3 Ratio 17:1 06/25/19 06:13 ABG pH 7.35 (7.35-7.45) 06/25/19 06:13 ABG pCO2 46.1 mmHg (35-45) H 06/25/19 06:13 ABG pO2 109.4 mmHg (80-100) H 06/25/19 06:13 ABG HCO3 24.8 mmol/L (20-24) H 06/25/19 06:13 ABG Total CO2 26.2 mmol/L (23-27) 06/25/19 06:13 ABG O2 Saturation 97.7 % (94-98) 06/25/19 06:13 ABG Base Excess -1.1 mmol/L 06/25/19 06:13 VBG pH 7.27 (7.30-7.42) L 06/24/19 19:47 VBG pCO2 67.9 mmHg (35-63) H* 06/24/19 19:47 VBG HCO3 30.8 mmol/L (20-32) 06/24/19 19:47 VBG Base Excess 2.2 mmol/L 06/24/19 19:47 FiO2 45% 06/25/19 06:13 Sodium 137.4 mmol/L (137-145) 06/24/19 22:11 Potassium 4.8 mmol/L (3.6-5.0) 06/24/19 22:11 Chloride 102 mmol/L (98-107) 06/24/19 22:11 Carbon Dioxide 27 mmol/L (22-30) 06/24/19 22:11 Anion Gap 8 (5-19) 06/24/19 22:11 BUN 21 mg/dL (7-20) H 06/24/19 22:11 Creatinine 0.99 mg/dL (0.52-1.25) 06/24/19 22:11 Est GFR ( Amer) > 60 (>60) 06/24/19 22:11 Est GFR (MDRD) Non-Af > 60 (>60) 06/24/19 22:11 Glucose 169 mg/dL (75-110) H 06/24/19 22:11 POC Glucose 121 mg/dL (70-110) H 06/29/19 07:50 Calcium 9.4 mg/dL (8.4-10.2) 06/24/19 22:11 Magnesium 2.0 mg/dL (1.6-2.3) 06/25/19 06:05 Total Bilirubin 0.2 mg/dL (0.2-1.3) 06/24/19 19:47 Direct Bilirubin 0.1 mg/dL (0.0-0.4) 06/24/19 19:47 Neonat Total Bilirubin Not Reportable 06/24/19 19:47 Neonat Direct Bilirubin Not Reportable 06/24/19 19:47 Neonat Indirect Bili Not Reportable 06/24/19 19:47 AST 16 U/L (17-59) L 06/24/19 19:47 ALT 16 U/L (<50) 06/24/19 19:47 Alkaline Phosphatase 61 U/L (38-126) 06/24/19 19:47 Creatine Kinase 96 U/L (55-170) 06/25/19 06:05 CK-MB (CK-2) 2.53 ng/mL (<4.55) 06/25/19 06:05 Troponin I < 0.012 ng/mL 06/25/19 06:05 Total Protein 6.6 g/dL (6.3-8.2) 06/24/19 19:47 Albumin 4.0 g/dL (3.5-5.0) 06/24/19 19:47 Urine Color STRAW 06/24/19 19:47 Urine Appearance CLEAR 06/24/19 19:47 Urine pH 5.0 (5.0-9.0) 06/24/19 19:47 Ur Specific [place] 1.014 06/24/19 19:47 Urine Protein NEGATIVE mg/dL (NEGATIVE) 06/24/19 19:47 Urine Glucose (UA) >=500 mg/dL (NEGATIVE) H 06/24/19 19:47 Urine Ketones NEGATIVE mg/dL (NEGATIVE) 06/24/19 19:47 Urine Blood NEGATIVE (NEGATIVE) 06/24/19 19:47 Urine Nitrite NEGATIVE (NEGATIVE) 06/24/19 19:47 Urine Bilirubin NEGATIVE (NEGATIVE) 06/24/19 19:47 Urine Urobilinogen NEGATIVE mg/dL (<2.0) 06/24/19 19:47 Ur Leukocyte Esterase NEGATIVE (NEGATIVE) 06/24/19 19:47 Urine WBC (Auto) 0 /HPF 06/24/19 19:47 Urine Ascorbic Acid NEGATIVE (NEGATIVE) 06/24/19 19:47 06/24/19 12 19:47 06:05 CK-MB (CK-2) 2.72 2.53 Troponin I < 0.012 < 0.012 Impressions: Chest X-Ray 06/24/19 18:10 IMPRESSION: Small left pleural effusion. Chest CT 06/25/19 07:30 IMPRESSION: 1. Minimal subtle right upper lobe predominant centrilobular ground-glass nodular opacities, likely infectious/ inflammatory. No dense consolidation. No significant effusion. 2. 7 mm left upper lobe pulmonary nodule. Follow-up recommendations as below. 3. Scattered coronary atherosclerosis. Plan Time Spent: Greater than 30 Minutes - Continues to use the BiPAP every time patients lay down and overnight times continues to oxygen's Follow with the pulmonary Stroke Is this a Stroke Patient?: No Acute Heart Failure - Is this a Heart Failure Patient?: No
[2019-06-29] MEDS: METFORMIN HCL 500 MG TABLET PO SCH (09:05)
[2019-06-29] MEDS: INSULIN LISPRO 100 UNIT/ML 3 ML VIAL SUBCUT SCH ×4 (09:05→11:10)
[2019-06-29] MEDS: SITAGLIPTIN PHOSPHATE 50 MG TABLET PO SCH (09:06)
[2019-06-29] MEDS: PREDNISONE 20 MG TABLET PO SCH (09:13)
[2019-06-29] MEDS: ASPIRIN 81 MG TABLET, ENT COATED PO SCH (09:14)
[2019-06-29] MEDS: LISINOPRIL 5 MG TABLET PO SCH (09:14)
[2019-06-29] MEDS: FUROSEMIDE 20 MG TABLET PO SCH (09:14)
[2019-06-29] MEDS: ATORVASTATIN CALCIUM 40 MG TABLET PO SCH (09:14)
[2019-06-29] MEDS: FAMOTIDINE 20 MG TABLET PO SCH (09:14)
[2019-06-29] MEDS: LEVOFLOXACIN 500 MG TABLET PO SCH (09:15)
[2019-06-29] MEDS: DILTIAZEM HCL 120 MG CAP.SR.24H PO SCH (09:15)
[2019-06-29] MEDS: FLUTICASONE/UMECLIDIN/VILANTER 100-62.5-25 MCG/DOSE IH SCH (09:15)
[2019-06-29] MEDS: TAMSULOSIN HCL 0.4 MG CAP.SR.24H PO SCH (09:15)
[2019-06-29] MEDS: INSULIN GLARGINE,HUM.REC.ANLOG 1,000 UNIT/10 ML VIAL SUBCUT SCH (09:16)
[2019-06-29] MEDS: ENOXAPARIN SODIUM INJ 40 MG/0.4 ML DISP.SYRIN SUBCUT SCH (09:16)
[2019-06-29] MEDS: FLUTICASONE NASAL SPRAY 50 MCG/SPRY 120 SPRAY/16 GM NASL SCH (09:16)
--- NOTE | 2019-06-29 11:06 | PDOC CONSULTATION ---
Consultation Consult Date: 06/25/19 Attending physician:: ARTEMIO KAMINSKI Provider Consulted: DANIEL LYONS Consult reason:: Respiratory failure History of Present Illness Admission Date/PCP: 06/24/19 21:21 ARTEMIO KAMINSKI MD History of Present Illness: ADÁN CHEUNG is a 53 year old male well-known to [facility] presents emergency room increasing shortness of breath was started on his BiPAP and medications with some improvement he has a history of noncompliance but continued to cough up purulent phlegm he denies any hemoptysis fevers chills or rhinorrhea admits to sore throat no chest pain little edema on a daily basis. He carries a diagnosis of chronic obstructive pulmonary disease with hypoxia and hypercapnia as well as an obesity hypoventilation syndrome Past Medical History Cardiac Medical History: Reports: Hyperlipidema, Hypertension Denies: Coronary Artery Disease, Myocardial Infarction Pulmonary Medical History: Reports: Asthma, Bronchitis, Chronic Obstructive Pulmonary Disease (COPD), Pneumonia Denies: Tuberculosis Neurological Medical History: Denies: Migraine, Seizures Endocrine Medical History: Reports: Diabetes Mellitus Type 2, Obesity Denies: Gestational Diabetes Renal/ Medical History: Reports: None Malignancy Medical History: Reports: None GI Medical History: Denies: Cirrhosis, Crohn's Disease, Ulcerative Colitis Musculoskeltal Medical History: Denies: Arthritis Skin Medical History: Denies: Psoriasis Psychiatric Medical History: Reports: Depression Traumatic Medical History: Denies: Gunshot Wound, Pneumothorax, Traumatic Brain Injury Hematology: Denies: Anemia, Hemophilia, Sickle Cell Disease Infectious Medical History: Denies: Hepatitis B, HIV Past Surgical History Past Surgical History: Reports: Cardiac Catheterization, Cholecystectomy, Orthopedic Surgery - R foot, Tonsillectomy Social History Information Source: Patient, [facility] Records Smoking Status: Never Smoker Passive smoke exposure as: Both Frequency of Alcohol Use: None Hx Recreational Drug Use: No Drugs: None Hx Prescription Drug Abuse: No Do you have pets?: No Have you had any respiratory illnesses as a child?: Yes Have you been exposed to any sick contacts recently?: No Have you had any recent respiratory illnesses?: No Have you travelled outside of [place] in the past 12 months?: No Family History Family History: COPD, Hypertension Parental Family History Reviewed: Yes Children Family History Reviewed: Yes Sibling(s) Family History Reviewed.: Yes Medication/Allergy Home Medications: Aspirin [Adult Low Dose Aspirin EC] 81 mg PO DAILY 06/25/19 Atorvastatin Calcium [Lipitor 40 mg Tablet] 40 mg PO DAILY 06/25/19 Diltiazem HCl [Diltiazem 24Hr ER] 120 mg PO DAILY 06/25/19 Empagliflozin [Jardiance] 10 mg PO DAILY 06/25/19 Fluticasone Propionate [Flonase Nasal Carson 50 Mcg/Carson 16 gm] 1 spray NASL Q12 06/25/19 Fluticasone/Umeclidin/Vilanter [Trelegy 100-62.5-25 Mcg Ellipta 14 Dose/Dpi] 1 puff IH DAILY 06/25/19 Furosemide [Lasix 20 mg Tablet] 10 mg PO DAILY 06/25/19 Gabapentin [Neurontin 100 mg Capsule] 100 mg PO TID 06/25/19 Insulin Aspart [Novolog Flexpen] 5 unit SQ AC 06/25/19 Insulin Detemir [Levemir] 65 unit SQ Q12 06/25/19 Ipratropium/Albuterol Sulfate [Combivent Respimat 4 gm Mdi] 1 puff IH Q6 06/25/19 Lisinopril [Zestril] 2.5 mg PO DAILY 06/25/19 Sitagliptin Phos/Metformin HCl [Janumet 50-500 mg Tablet] 1 each PO BID 06/25/19 Tamsulosin HCl [Flomax] 0.4 mg PO DAILY 06/25/19 Levofloxacin [Levaquin 500 mg Tablet] 500 mg PO DAILY #7 tablet 06/29/19 Allergies/Adverse Reactions: amoxicillin [Amoxicillin] Adverse Reaction (Verified 11/04/18 14:46) Hives Iodinated Contrast Media [IV Dye, Iodine Containing] Adverse Reaction (Verified 11/04/18 14:46) Hives Penicillins Adverse Reaction (Verified 11/04/18 14:46) Hives Apricots Adverse Reaction (Mild, Uncoded 11/04/18 14:46) Hives Review of Systems All systems: reviewed and no additional remarkable complaints except as stated Physical Exam Vital Signs: Temp Pulse Resp BP Pulse Ox 97.6 F 85 25 H 139/78 H 97 06/25/19 07:38 06/25/19 08:34 06/25/19 08:34 06/25/19 07:38 06/25/19 08:34 Intake & Output 06/24/19 06/25/19 06/26/19 06:59 06:59 06:59 Intake Total 210 Balance 210 Weight 115.6 kg General appearance: PRESENT: cooperative, disheveled, mild distress, morbidly obese Head exam: PRESENT: atraumatic, normocephalic Eye exam: PRESENT: conjunctiva pale, EOMI. ABSENT: nystagmus, periorbital swelling Mouth exam: PRESENT: dry mucosa, neck supple, tongue midline, other - [place] 4 Neck exam: ABSENT: carotid bruit, full ROM, JVD, lymphadenopathy, meningismus, tenderness, thyromegaly, tracheal deviation, tracheostomy, other Respiratory exam: PRESENT: decreased breath sounds, prolonged expiratory phas, rales, rhonchi, symmetrical, tachypnea, unlabored, wheezes. ABSENT: retraction, stridor Cardiovascular exam: PRESENT: RRR, +S1, +S2, tachycardia Pulses: PRESENT: normal radial pulses GI/Abdominal exam: PRESENT: soft. ABSENT: distended, guarding, mass, rebound, t enderness Extremities exam: PRESENT: pedal edema. ABSENT: calf tenderness, clubbing, joint swelling, tenderness Musculoskeletal exam: ABSENT: deformity, dislocation Neurological exam: PRESENT: alert, awake Psychiatric exam: PRESENT: anxious Skin exam: PRESENT: dry, warm Results Laboratory Results: 06/25/19 06:05 06/24/19 22:11 06/24/19 06/24/19 06/24/19 19:47 19:47 19:47 WBC 9.1 RBC 3.81 L Hgb 11.5 L Hct 34.8 L MCV 91 MCH 30.2 MCHC 33.1 RDW 15.5 H Plt Count 216 Seg Neutrophils % 75.6 Carbonic Acid HCO3/H2CO3 Ratio ABG pH ABG pCO2 ABG pO2 ABG HCO3 ABG O2 Saturation ABG Base Excess VBG pH 7.27 L VBG pCO2 67.9 H* VBG HCO3 30.8 VBG Base Excess 2.2 FiO2 Sodium 139.0 Potassium 5.3 H Chloride 101 Carbon Dioxide 30 Anion Gap 8 BUN 21 H Creatinine 1.00 Est GFR ( Amer) > 60 Glucose 180 H Calcium 9.7 Magnesium Total Bilirubin 0.2 AST 16 L Alkaline Phosphatase 61 Total Protein 6.6 Albumin 4.0 Urine Color Urine Appearance Urine pH Ur Specific [place] Urine Protein Urine Glucose (UA) Urine Ketones Urine Blood Urine Nitrite Ur Leukocyte Esterase Urine WBC (Auto) 06/24/19 06/24/19 06/24/19 19:47 21:26 22:11 WBC RBC Hgb Hct MCV MCH MCHC RDW Plt Count Seg Neutrophils % Carbonic Acid 1.70 H HCO3/H2CO3 Ratio 17:1 ABG pH 7.33 L ABG pCO2 56.6 H ABG pO2 124.5 H ABG HCO3 29.1 H ABG O2 Saturation 98.2 H ABG Base Excess 2.1 VBG pH VBG pCO2 VBG HCO3 VBG Base Excess FiO2 45% Sodium 137.4 Potassium 4.8 Chloride 102 Carbon Dioxide 27 Anion Gap 8 BUN 21 H Creatinine 0.99 Est GFR ( Amer) > 60 Glucose 169 H Calcium 9.4 Magnesium Total Bilirubin AST Alkaline Phosphatase Total Protein Albumin Urine Color STRAW Urine Appearance CLEAR Urine pH 5.0 Ur Specific [place] 1.014 Urine Protein NEGATIVE Urine Glucose (UA) >=500 H Urine Ketones NEGATIVE Urine Blood NEGATIVE Urine Nitrite NEGATIVE Ur Leukocyte Esterase NEGATIVE Urine WBC (Auto) 0 06/25/19 06/25/19 06/25/19 06:05 06:05 06:13 WBC 6.7 RBC 3.87 L Hgb 11.8 L Hct 35.3 L MCV 91 MCH 30.5 MCHC 33.4 RDW 15.8 H Plt Count 193 Seg Neutrophils % Carbonic Acid 1.39 H HCO3/H2CO3 Ratio 17:1 ABG pH 7.35 ABG pCO2 46.1 H ABG pO2 109.4 H ABG HCO3 24.8 H ABG O2 Saturation 97.7 ABG Base Excess -1.1 VBG pH VBG pCO2 VBG HCO3 VBG Base Excess FiO2 45% Sodium Potassium Chloride Carbon Dioxide Anion Gap BUN Creatinine Est GFR ( Amer) Glucose Calcium Magnesium 2.0 Total Bilirubin AST Alkaline Phosphatase Total Protein Albumin Urine Color Urine Appearance Urine pH Ur Specific [place] Urine Protein Urine Glucose (UA) Urine Ketones Urine Blood Urine Nitrite Ur Leukocyte Esterase Urine WBC (Auto) 06/24/19 06/24/19 06/25/19 19:47 19:47 06:05 Creatine Kinase 103 96 CK-MB (CK-2) 2.72 Troponin I < 0.012 06/25/19 06:05 Creatine Kinase CK-MB (CK-2) 2.53 Troponin I < 0.012 [facility]: Chest X-Ray 06/24/19 18:10 IMPRESSION: Small left pleural effusion. Chest CT 06/25/19 07:30 IMPRESSION: 1. Minimal subtle right upper lobe predominant centrilobular ground-glass nodular opacities, likely infectious/ inflammatory. No dense consolidation. No significant effusion. 2. 7 mm left upper lobe pulmonary nodule. Follow-up recommendations as below. 3. Scattered coronary atherosclerosis. Assessment & Plan - Diagnosis (1) Acute and chronic respiratory failure with hypercapnia Is this a current diagnosis for this admission?: Yes Plan: On compliant with his NIPPV (2) COPD with acute exacerbation Is this a current diagnosis for this admission?: Yes Plan: Current bronchodilator therapy as you have initiated (3) BMI 40.0-44.9, adult Is this a current diagnosis for this admission?: Yes Plan: Consider nutritional consult - Time Time Spent: 50 to 70 Minutes
--- NOTE | 2019-06-29 11:08 | PDOC PROGRESS REPORT ---
Subjective Progress Note for:: 06/28/19 Subjective:: Feels a lot better Reason For Visit: RESPIRATORY DISTRESS Physical Exam Vital Signs: Temp Pulse Resp BP Pulse Ox 97.3 F 68 18 101/41 L 98 06/29/19 06:56 06/29/19 08:20 06/29/19 08:20 06/29/19 06:56 06/29/19 08:20 Intake & Output 06/28/19 06/29/19 06/30/19 06:59 06:59 06:59 Intake Total 2380 3057 Output Total 1425 1475 Balance 955 1582 Weight 115.3 kg 113.3 kg General appearance: PRESENT: no acute distress, cooperative, disheveled, morbidly obese Head exam: PRESENT: atraumatic, normocephalic Eye exam: PRESENT: conjunctiva pale, EOMI. ABSENT: nystagmus, periorbital swelling Mouth exam: PRESENT: dry mucosa, neck supple, tongue midline Neck exam: ABSENT: carotid bruit, full ROM, JVD, lymphadenopathy, meningismus, tenderness, thyromegaly, tracheal deviation, tracheostomy, other Respiratory exam: PRESENT: decreased breath sounds, prolonged expiratory phas, rhonchi, symmetrical, unlabored, wheezes. ABSENT: retraction, stridor, tachypnea Cardiovascular exam: PRESENT: RRR, +S1, +S2. ABSENT: tachycardia Pulses: PRESENT: normal radial pulses GI/Abdominal exam: PRESENT: soft. ABSENT: distended, guarding, mass, rebound, tenderness Extremities exam: PRESENT: pedal edema. ABSENT: calf tenderness, clubbing, full ROM, tenderness Musculoskeletal exam: ABSENT: deformity, dislocation Neurological exam: PRESENT: alert, awake Psychiatric exam: PRESENT: appropriate affect Skin exam: PRESENT: dry, warm Results Laboratory Results: 06/27/19 03:56 06/24/19 22:11 06/26/19 16:18 Sputum Gram Stain - Final 06/26/19 16:18 Sputum Sputum Culture - Final Yeast, Not Shilpi Albicans Normal Ann 06/24/19 06/24/19 06/25/19 19:47 19:47 06:05 Creatine Kinase 103 96 CK-MB (CK-2) 2.72 Troponin I < 0.012 06/25/19 06:05 Creatine Kinase CK-MB (CK-2) 2.53 Troponin I < 0.012 Impressions: Chest X-Ray 06/24/19 18:10 IMPRESSION: Small left pleural effusion. Chest CT 06/25/19 07:30 IMPRESSION: 1. Minimal subtle right upper lobe predominant centrilobular ground-glass nodular opacities, likely infectious/ inflammatory. No dense consolidation. No significant effusion. 2. 7 mm left upper lobe pulmonary nodule. Follow-up recommendations as below. 3. Scattered coronary atherosclerosis. Assessment & Plan - Diagnosis (1) Acute and chronic respiratory failure with hypercapnia Is this a current diagnosis for this admission?: Yes Plan: Improving (2) COPD with acute exacerbation Is this a current diagnosis for this admission?: Yes Plan: Responding well to medications (3) BMI 40.0-44.9, adult Is this a current diagnosis for this admission?: Yes - Time Time Spent with patient: 15-24 minutes Level of Care: IMCU
[2019-06-29 12:47] VITALS: BP 140/66
== END 2019-06-29 13:15 | disposition home health service (06) | DRG 189 ==
LOC: ER 18:07 → EH 21:21 → 3N 06-25 01:51
PROVIDERS: ADMIT Family Medicine; ATTEND Family Medicine
DX: J96.22 Acute and chronic respiratory failure with hypercapnia (principal); J44.1 Chronic obstructive pulmonary disease with (acute) exacerbation; Z68.41 Body mass index [BMI] 40.0-44.9, adult; E78.00 Pure hypercholesterolemia, unspecified; I10 Essential (primary) hypertension; E11.8 Type 2 diabetes mellitus with unspecified complications; G47.30 Sleep apnea, unspecified; E87.5 Hyperkalemia; E66.01 Morbid (severe) obesity due to excess calories; F17.210 Nicotine dependence, cigarettes, uncomplicated; Z99.81 Dependence on supplemental oxygen; Z88.0 Allergy status to penicillin; Z88.1 Allergy status to other antibiotic agents; Z91.041 Radiographic dye allergy status; Z91.19 Patient's noncompliance with other medical treatment and regimen; Z79.2 Long term (current) use of antibiotics; Z79.84 Long term (current) use of oral hypoglycemic drugs; Z79.82 Long term (current) use of aspirin; Z79.4 Long term (current) use of insulin; Z79.891 Long term (current) use of opiate analgesic; Z79.51 Long term (current) use of inhaled steroids; Z79.899 Other long term (current) drug therapy
CPT/HCPCS: 36415; 36600; 71045; 71250; 80053; 81001; 82550; 82553; 82803; 82962; 83735; 84484; 85025; 85027; 87040; 87070; 87205; 93005; 93010; 94660; 99291; J1650; J1815; J1956; J2920; J2930; J3490; J7512; J7620

== ENCOUNTER 2019-09-24 17:53 | Inpatient (IN) | payer MEDICARE, MEDICAID ==
[2019-09-24 18:49] LABS: ABSOLUTE BASOPHILS # (AUTO) 0.1 10^3/uL (0.0-0.2); ABSOLUTE EOSINOPHILS # (AUTO) 0.1 10^3/uL (0.0-0.6); ABSOLUTE LYMPHOCYTES (AUTO) 2.4 10^3/uL (0.5-4.7); ABSOLUTE MONOCYTES (AUTO) 0.5 10^3/uL (0.1-1.4); ABSOLUTE NEUT (AUTO) 5.6 10^3/uL (1.7-8.2); BASOPHILS % (AUTO) 1.1 % (0-2); EOSINOPHILS % (AUTO) 1.5 % (0-6); HEMATOCRIT 41.6 % (37.9-51.0); HEMOGLOBIN 13.9 g/dL (13.5-17.0); LYMPHOCYTES % (AUTO) 27.2 % (13-45); MEAN CORPUSCULAR HEMOGLOBIN 30.7 pg (27.0-33.4); MEAN CORPUSCULAR HGB CONC 33.4 g/dL (32.0-36.0); MEAN CORPUSCULAR VOLUME 92 fl (80-97); MONOCYTES % (AUTO) 5.2 % (3-13); RED BLOOD COUNT 4.52 10^6/uL (4.35-5.55); TOTAL CELLS COUNTED % (AUTO) 100 %; WHITE BLOOD COUNT 8.7 10^3/uL (4.0-10.5)
[2019-09-24 18:54] LABS: APPEARANCE,URINE CLEAR; BILIRUBIN,URINE NEGATIVE (NEGATIVE); COLOR,URINE STRAW; GLUCOSE, URINE >=500 mg/dL (NEGATIVE); KETONES,URINE NEGATIVE (NEGATIVE); LEUKOCYTE ESTERASE,URINE NEGATIVE (NEGATIVE); NITRITE,URINE NEGATIVE (NEGATIVE); PROTEIN,URINE NEGATIVE (NEGATIVE); URINE SPECIFIC GRAVITY 1.012; UROBILINOGEN,URINE NEGATIVE mg/dL (<2.0)
--- NOTE | 2019-09-24 19:03 | RADIOLOGY REPORT (SQ) ---
EXAM DESCRIPTION: CHEST SINGLE VIEW COMPLETED DATE/TIME: 09/24/2019 6:53 pm REASON FOR STUDY: Difficulty breathing COMPARISON: 06/24/2019 EXAM PARAMETERS: NUMBER OF VIEWS: One view. TECHNIQUE: Single frontal radiographic view of the chest acquired. RADIATION DOSE: NA LIMITATIONS: None. FINDINGS: LUNGS AND PLEURA: Bibasilar minimal opacities with probable effusions. MEDIASTINUM AND HILAR STRUCTURES: No masses. Contour normal. HEART AND VASCULAR STRUCTURES: Heart enlarged. Vascular congestion. BONES: No acute findings. HARDWARE: None in the chest. OTHER: No other significant finding. IMPRESSION: Vascular congestion with cardiac enlargement and small bilateral pleural effusions. TECHNICAL DOCUMENTATION: JOB ID: [id number] 2010 [employer]- All Rights Reserved Reading location - IP/workstation name: [email or web address]
[2019-09-24 19:06] LABS: PLATELET COUNT 162 10^3/uL (150-450)
[2019-09-24 19:08] LABS: ALBUMIN 4.6 g/dL (3.5-5.0); ALKALINE PHOSPHATASE 104 U/L (38-126); ANION GAP 10 (5-19); ASPARTATE AMINO TRANSFERASE 18 U/L (17-59); BILIRUBIN,DIRECT 0.6 mg/dL (0.0-0.4); BILIRUBIN,TOTAL 0.6 mg/dL (0.2-1.3); BLOOD UREA NITROGEN 21 mg/dL (7-20); CALCIUM 9.9 mg/dL (8.4-10.2); CARBON DIOXIDE 33 mmol/L (22-30); CHLORIDE 99 mmol/L (98-107); GLUCOSE 224 mg/dL (75-110); POTASSIUM 4.3 mmol/L (3.6-5.0); TOTAL PROTEIN 7.7 g/dL (6.3-8.2)
[2019-09-24] MEDS ORDERED: METHYLPREDNISOLONE INJ 125 MG/2 ML SDV IV ONE (19:50)
[2019-09-24] MEDS ORDERED: IPRATROPIUM/ALBUTEROL 0.5-2.5 MG/3 ML AMPUL NEB ONE (19:50)
[2019-09-24 20:27] LABS: NT PRO BNP 110 pg/mL (<125)
[2019-09-24 20:31] LABS: TROPONIN I < 0.012 ng/mL
[2019-09-24 20:40] LABS: ARTERIAL BLOOD H2CO3 2.36 mmol/L (1.05-1.35); ARTERIAL BLOOD HCO3 33.6 mmol/L (20-24); ARTERIAL BLOOD O2 SATURATION 49.5 % (94-98); ARTERIAL BLOOD PH 7.25 (7.35-7.45)
[2019-09-24 20:50] LABS: ARTERIAL BLOOD FIO2 10L; ARTERIAL BLOOD PCO2 78.4 mmHg (35-45); ARTERIAL BLOOD PO2 31.9 mmHg (80-100)
--- NOTE | 2019-09-24 22:15 | EKG REPORT ---
SEVERITY:- ABNORMAL ECG - SINUS RHYTHM RIGHT AXIS DEVIATION NONSPECIFIC ST-T CHANGES,DIFFUSE., NEW, SINCE 24-JUN-2019 EKG, CLINICAL CORRELATON NEEDED. : Confirmed by: Guillermo Pham MD 24-Sep-2019 22:14:24
[2019-09-24 22:24] LABS: A TYPE INFLUENZA AG NEGATIVE (NEGATIVE); B INFLUENZA AG NEGATIVE (NEGATIVE)
[2019-09-24 22:31] LABS: ARTERIAL BLOOD BASE EXCESS 4.1 mmol/L; ARTERIAL BLOOD HCO3 30.9 mmol/L (20-24); ARTERIAL BLOOD PCO2 56.6 mmHg (35-45); ARTERIAL BLOOD PH 7.36 (7.35-7.45); ARTERIAL BLOOD PO2 59.2 mmHg (80-100); ARTERIAL BLOOD TOTAL CO2 32.6 mmol/L (23-27)
[2019-09-24 22:52] LABS: ARTERIAL BLOOD FIO2 35%
--- NOTE | 2019-09-24 23:52 | ER Document Report ---
ED General - General Chief Complaint: Shortness Of Breath Stated Complaint: SHORTNESS OF BREATH Time Seen by Provider: 09/24/19 18:53 Primary Care Provider: ARTEMIO KAMINSKI MD [Primary Care Provider] - Follow up as needed TRAVEL OUTSIDE OF THE [place] IN LAST 30 DAYS: No - HPI Notes: 53-year-old male cigarette smoker followed by Dr. Kaminski with history of severe COPD and obstructive sleep apnea presents to the emergency department via EMS with increased difficulty breathing. Patient is normally dependent on nasal O2 4 to 5 L/min at home. He was brought in on nonrebreather mask. Denies sputum production. Denies fever. Denies chest pain. Patient has mild edema both legs and he says this is actually better since he has been taking a diuretic. He continues to smoke about 1/2 pack of cigarettes per day. Review of past inpatient records from Dr. Kaminski indicate that this patient is extremely noncompliant. - Related Data Allergies/Adverse Reactions: amoxicillin [Amoxicillin] Adverse Reaction (Verified 09/24/19 18:13) Hives Iodinated Contrast Media [IV Dye, Iodine Containing] Adverse Reaction (Verified 09/24/19 18:13) Hives Penicillins Adverse Reaction (Verified 09/24/19 18:13) Hives Apricots Adverse Reaction (Mild, Uncoded 11/04/18 14:46) Hives Past Medical History - General Information source: Patient, Emergency Med Personnel, [facility] Records - Social History Smoking Status: Current Every Day Smoker Family History: COPD, Hypertension Patient has suicidal ideation: No Patient has homicidal ideation: No - Past Medical History Cardiac Medical History: Reports: Hx Congestive Heart Failure, Hx Heart Attack - 2018, Hx Hypercholesterolemia, Hx Hypertension Denies: Hx Coronary Artery Disease Pulmonary Medical History: Reports: Hx Asthma, Hx Bronchitis, Hx COPD, Hx Pneumo prasanna Denies: Hx Tuberculosis Neurological Medical History: Denies: Hx Cerebrovascular Accident, Hx Migraine, Hx Seizures Endocrine Medical History: Reports: Hx Diabetes Mellitus Type 2 Renal/ Medical History: Denies: Hx Peritoneal Dialysis GI Medical History: Denies: Hx Cirrhosis, Hx Crohn's Disease, Hx Ulcerative Colitis Musculoskeletal Medical History: Denies Hx Arthritis Skin Medical History: Denies Hx Psoriasis Psychiatric Medical History: Reports: Hx Depression Traumatic Medical History: Denies: Hx Gunshot Wound, Hx Pneumothorax, Hx Traumatic Brain Injury Infectious Medical History: Denies: Hx HIV Past Surgical History: Reports: Hx Abdominal Surgery - hernia repair, Hx Cardiac Catheterization, Hx Cholecystectomy, Hx Orthopedic Surgery - R foot, Hx Tonsillectomy - Immunizations Hx Diphtheria, Pertussis, Tetanus Vaccination: Yes Hx Pneumococcal Vaccination: 04/20/13 Review of Systems - Review of Systems Notes: Constitutional: Negative for fever. HENT: Negative for sore throat. Eyes: Negative for visual changes. Cardiovascular: Negative for chest pain. Respiratory: As per HPI. Gastrointestinal: Negative for abdominal pain, vomiting or diarrhea. Genitourinary: Negative for dysuria. Musculoskeletal: Negative for back pain. Skin: Negative for rash. Neurological: Negative for headaches, weakness or numbness. 10 point ROS negative except as marked above and in HPI. Physical Exam - Vital signs Vitals: Pulse Ox 91 L 09/24/19 17:53 - Notes Notes: GENERAL: Middle-age male who appears dyspneic on oxygen. Somewhat obese. SKIN: Good turgor no rashes. HEAD: Normocephalic atraumatic. EYES: PERRLA. EOMI. Conjunctivae and sclerae clear. EARS: CANALS AND TMS CLEAR. NOSE: CLEAR. MOUTH: Moist mucosa. Good dentition. No stridor or edema. No drooling. NECK: Supple. No masses or thyromegaly. No adenopathy. Carotids 2+ without bruits. No JVD. BACK: Symmetrical without tenderness. CHEST: Respirations unlabored. Wheezes and scattered rhonchi bilaterally. HEART: Regular rhythm. No murmur gallop or rub. ABDOMEN: Moderately obese. Soft nontender without masses, organomegaly or rebound. Bowel sounds normally active. No bruits. GENITALIA: Deferred. EXTREMITIES: 1+ bilateral pretibial edema. No calf tenderness. Cap refill less than 1.5 seconds. Dorsalis pedis and posterior tibial pulses 3+ and symmetrical. NEUROLOGICAL: GCS 15. Alert and oriented x3. Fluent speech. Cranial nerves II through XII intact. Sensorimotor and cerebellar normal. Normal tone. PSYCHIATRIC: Appropriate affect. Course - Re-evaluation Re-evalutation: 09/24/19 23:51 Patient received IV steroids multiple nebulizer treatments and was subsequently placed on BiPAP. Findings were discussed with Dr. Diamond tape control skin or spar mill operator for Dr. Kaminski who accepted the patient for admission to IMCU. 09/24/19 23:55 - Vital Signs Vital signs: Temp Pulse Resp BP Pulse Ox 22 H 142/71 H 92 09/24/19 23:03 09/24/19 23:03 09/24/19 23:03 - Laboratory Result Diagrams: 09/24/19 18:20 09/24/19 18:20 Laboratory results interpreted by me: 09/24/19 09/24/19 09/24/19 18:20 18:20 18:35 RDW 15.0 H Carbonic Acid ABG pH ABG pCO2 ABG pO2 ABG HCO3 ABG Total CO2 ABG O2 Saturation Carbon Dioxide 33 H BUN 21 H Glucose 224 H Direct Bilirubin 0.6 H Urine Glucose (UA) >=500 H 09/24/19 09/24/19 20:25 22:22 RDW Carbonic Acid 2.36 H 1.70 H ABG pH 7.25 L ABG pCO2 78.4 H* 56.6 H ABG pO2 31.9 L* 59.2 L ABG HCO3 33.6 H 30.9 H ABG Total CO2 36.0 H 32.6 H ABG O2 Saturation 49.5 L 89.0 L Carbon Dioxide BUN Glucose Direct Bilirubin Urine Glucose (UA) - Diagnostic Test Radiology reviewed: Reports reviewed - Mild vascular congestion and questionable small bilateral pleural effusion. - EKG Interpretation by Me Additional EKG results interpreted by me: 09/24/19 23:56 Twelve-lead EKG from 1835 hrs. was reviewed contemporaneously by me demonstrating a normal sinus rhythm with a rate of 97. QRS axis is 104 degrees. There are no acute ST/T wave changes. Critical Care Note - Critical Care Note Total time excluding time spent on procedures (mins): 65 - BiPAP for respiratory failure Discharge - Discharge Clinical Impression: COPD with acute exacerbation Acute and chronic respiratory failure ([id number]) Qualifiers: Respiratory failure complication: hypoxia and hypercapnia Qualified Code(s): J96.21 - Acute and chronic respiratory failure with hypoxia Condition: Fair Disposition: ADMITTED INPATIENT Admitting Provider: [place] Unit Admitted: IMCU Referrals: ARTEMIO KAMINSKI MD [Primary Care Provider] - Follow up as needed
[2019-09-25] MEDS ORDERED: DEXTROSE 50%-WATER SYRINGE 12.5 GM/25 ML DOSE IV PRN (06:30)
[2019-09-25] MEDS ORDERED: DEXTROSE 50%-WATER SYRINGE 25 GM/50 ML DOSE IV PRN (06:30)
[2019-09-25] MEDS ORDERED: GLUCAGON,HUMAN RECOMB 1 MG INJ IM PRN (06:30)
[2019-09-25] MEDS ORDERED: DEXTROSE 40% GEL 15 GM TUBE X 2 PO PRN (06:30)
[2019-09-25] MEDS ORDERED: DEXTROSE 40% GEL 15 GM TUBE PO PRN (06:30)
[2019-09-25] MEDS: METHYLPREDNISOLONE INJ 125 MG/2 ML SDV IV SCH ×3 (06:45→21:35)
[2019-09-25] MEDS: INSULIN LISPRO 100 UNIT/ML 3 ML VIAL SUBCUT SCH ×8 (08:19→21:41)
[2019-09-25] MEDS ORDERED: INSULIN GLARGINE,HUM.REC.ANLOG 1,000 UNIT/10 ML VIAL (PYX) SUBCUT SCH (10:00)
[2019-09-25] MEDS: PANTOPRAZOLE SODIUM 40 MG TABLET.DR PO SCH (10:55)
[2019-09-25] MEDS: ENOXAPARIN SODIUM INJ 40 MG/0.4 ML DISP.SYRIN SUBCUT SCH (10:56)
[2019-09-25] MEDS: IPRATROPIUM/ALBUTEROL 0.5-2.5 MG/3 ML AMPUL NEB PRN ×2 (15:39→20:46)
[2019-09-25] MEDS ORDERED: (PENDING PHARMACY ID) (Insulin Aspart [Novolog Flexpen] 5 UNIT) SQ SCH (16:00)
--- NOTE | 2019-09-25 16:11 | PDOC H&P ---
History of Present Illness Admission Date/PCP: 09/25/19 00:02 ARTEMIO KAMINSKI MD Patient complains of: Dificulty with breathing History of Present Illness: ADÁN CHEUNG is a 53 year old male patient of Dr. Kaminski who presented to the ED via EMS with complain about worsening difficulty with breathing. Patient narrated poor fitting of his breathing machine mask at home. He reported associated productive cough with yellow-green sputum. He denied any associated fever or chills. No chest pain. He admitted to continue cigarette smoking despite advance COPD. His initial ED evaluation revealed significant hypoxemia and hypercapnia and his ABG suggested respiratory acidosis. He was advised hospitalization for further evaluation and management of his acute presentation. His morbidities are as listed below. Past Medical History Cardiac Medical History: Reports: Congestive Heart Failure, Myocardial Infarction - 2018, Hyperlipidema, Hypertension Denies: Coronary Artery Disease Pulmonary Medical History: Reports: Asthma, Bronchitis, Chronic Obstructive Pulmonary Disease (COPD), Pneumonia Denies: Tuberculosis Neurological Medical History: Denies: Migraine, Seizures Endocrine Medical History: Reports: Diabetes Mellitus Type 2 GI Medical History: Denies: Cirrhosis, Crohn's Disease, Ulcerative Colitis Musculoskeltal Medical History: Denies: Arthritis Skin Medical History: Denies: Psoriasis Psychiatric Medical History: Reports: Depression Traumatic Medical History: Denies: Gunshot Wound, Pneumothorax, Traumatic Brain Injury Hematology: Denies: Anemia, Hemophilia, Sickle Cell Disease Infectious Medical History: Denies: HIV Past Surgical History Past Surgical History: Reports: Cardiac Catheterization, Cholecystectomy, Orthopedic Surgery - R foot, Tonsillectomy Social History Smoking Status: Current Every Day Smoker Cigarettes Packs Per Day: 0.5 Electronic Cigarette use?: No Number of Years Smokin Last Time Smoked: 09/24/2019 Frequency of Alcohol Use: None Hx Recreational Drug Use: No Drugs: None Hx Prescription Drug Abuse: No Family History Family History: COPD, Hypertension Parental Family History Reviewed: Yes Children Family History Reviewed: Yes Sibling(s) Family History Reviewed.: Yes Medication/Allergy Home Medications: Aspirin [Adult Low Dose Aspirin EC] 81 mg PO DAILY 06/25/19 Atorvastatin Calcium [Lipitor 40 mg Tablet] 40 mg PO DAILY 06/25/19 Diltiazem HCl [Diltiazem 24Hr ER] 120 mg PO DAILY 06/25/19 Empagliflozin [Jardiance] 10 mg PO DAILY 06/25/19 Fluticasone Propionate [Flonase Nasal Huddy 50 Mcg/Huddy 16 gm] 1 spray NASL Q12 06/25/19 Fluticasone/Umeclidin/Vilanter [Trelegy 100-62.5-25 Mcg Ellipta 14 Dose/Dpi] 1 puff IH DAILY 06/25/19 Furosemide [Lasix 20 mg Tablet] 10 mg PO DAILY 06/25/19 Gabapentin [Neurontin 100 mg Capsule] 100 mg PO TID 06/25/19 Insulin Aspart [Novolog Flexpen] 5 unit SQ AC 06/25/19 Insulin Detemir [Levemir] 65 unit SQ Q12 06/25/19 Ipratropium/Albuterol Sulfate [Combivent Respimat 4 gm Mdi] 1 puff IH Q6 06/25/19 Lisinopril [Zestril] 2.5 mg PO DAILY 06/25/19 Sitagliptin Phos/Metformin HCl [Janumet 50-500 mg Tablet] 1 each PO BID 06/25/19 Tamsulosin HCl [Flomax] 0.4 mg PO DAILY 06/25/19 Allergies/Adverse Reactions: amoxicillin [Amoxicillin] Adverse Reaction (Verified 09/24/19 18:13) Hives Iodinated Contrast Media [IV Dye, Iodine Containing] Adverse Reaction (Verified 09/24/19 18:13) Hives Penicillins Adverse Reaction (Verified 09/24/19 18:13) Hives Apricots Adverse Reaction (Mild, Uncoded 11/04/18 14:46) Hives Review of Systems Constitutional: ABSENT: chills, fever(s), headache(s), weight gain, weight loss Eyes: ABSENT: visual disturbances Ears: ABSENT: hearing changes Nose, Mouth, and Throat: PRESENT: as per HPI, other. ABSENT: headache(s), mouth pain, sore throat, vertigo Cardiovascular: PRESENT: dyspnea on exertion. ABSENT: chest pain, edema, orthropnea, palpitations Respiratory: PRESENT: cough, dyspnea, sputum. ABSENT: hemoptysis Gastrointestinal: ABSENT: abdominal pain, constipation, diarrhea, hematemesis, hematochezia, nausea, vomiting Genitourinary: ABSENT: dysuria, hematuria Musculoskeletal: ABSENT: joint swelling Integumentary: ABSENT: rash, wounds Neurological: ABSENT: abnormal gait, abnormal speech, confusion, dizziness, focal weakness, syncope Psychiatric: ABSENT: anxiety, depression, homidical ideation, suicidal ideation Endocrine: ABSENT: cold intolerance, heat intolerance, menstrual abnormalities, polydipsia, polyuria Hematologic/Lymphatic: ABSENT: easy bleeding, easy bruising, lymphadenopathy Allergic/Immunologic: ABSENT: seasonal rhinorrhea Physical Exam Vital Signs: Temp Pulse Resp BP Pulse Ox 97.4 F 62 24 H 137/54 H 95 09/25/19 11:22 09/25/19 15:39 09/25/19 15:39 09/25/19 11:22 09/25/19 15:39 Intake & Output 09/24/19 09/25/19 09/26/19 06:59 06:59 07:59 Intake Total 460 Output Total 350 Balance 110 Weight 104 kg General appearance: PRESENT: no acute distress, obese, severe distress - with BIPAP suppoort at this time. Head exam: PRESENT: atraumatic, normocephalic Eye exam: PRESENT: conjunctiva pink, EOMI, PERRLA. ABSENT: scleral icterus Ear exam: PRESENT: normal external ear exam Mouth exam: PRESENT: moist, tongue midline Neck exam: PRESENT: full ROM. ABSENT: carotid bruit, JVD, lymphadenopathy, thyromegaly Respiratory exam: PRESENT: decreased breath sounds, rhonchi, wheezes Cardiovascular exam: PRESENT: RRR. ABSENT: diastolic murmur, rubs, systolic murmur Vascular exam: ABSENT: pallor GI/Abdominal exam: PRESENT: normal bowel sounds, soft. ABSENT: distended, guarding, mass, organolmegaly, rebound, tenderness Rectal exam: PRESENT: deferred Extremities exam: ABSENT: pedal edema Neurological exam: PRESENT: alert, awake, oriented to person, oriented to place, oriented to time, oriented to situation, CN II-XII grossly intact. ABSENT: motor sensory deficit Psychiatric exam: PRESENT: appropriate affect, normal mood. ABSENT: homicidal ideation, suicidal ideation Skin exam: PRESENT: dry, intact, warm. ABSENT: cyanosis, rash Results Laboratory Results: 09/24/19 18:20 09/24/19 18:20 09/24/19 09/24/19 09/24/19 18:20 18:20 18:35 WBC 8.7 RBC 4.52 Hgb 13.9 Hct 41.6 MCV 92 MCH 30.7 MCHC 33.4 RDW 15.0 H Plt Count 162 Seg Neutrophils % 65.0 Carbonic Acid HCO3/H2CO3 Ratio ABG pH ABG pCO2 ABG pO2 ABG HCO3 ABG O2 Saturation ABG Base Excess FiO2 Sodium 142.2 Potassium 4.3 Chloride 99 Carbon Dioxide 33 H Anion Gap 10 BUN 21 H Creatinine 1.04 Est GFR ( Amer) > 60 Glucose 224 H Calcium 9.9 Total Bilirubin 0.6 AST 18 Alkaline Phosphatase 104 Total Protein 7.7 Albumin 4.6 Urine Color STRAW Urine Appearance CLEAR Urine pH 5.0 Ur Specific [place] 1.012 Urine Protein NEGATIVE Urine Glucose (UA) >=500 H Urine Ketones NEGATIVE Urine Blood NEGATIVE Urine Nitrite NEGATIVE Ur Leukocyte Esterase NEGATIVE Urine WBC (Auto) 1 09/24/19 09/24/19 20:25 22:22 WBC RBC Hgb Hct MCV MCH MCHC RDW Plt Count Seg Neutrophils % Carbonic Acid 2.36 H 1.70 H HCO3/H2CO3 Ratio 14:1 18:1 ABG pH 7.25 L 7.36 ABG pCO2 78.4 H* 56.6 H ABG pO2 31.9 L* 59.2 L ABG HCO3 33.6 H 30.9 H ABG O2 Saturation 49.5 L 89.0 L ABG Base Excess 4.0 4.1 FiO2 10L 35% Sodium Potassium Chloride Carbon Dioxide Anion Gap BUN Creatinine Est GFR ( Amer) Glucose Calcium Total Bilirubin AST Alkaline Phosphatase Total Protein Albumin Urine Color Urine Appearance Urine pH Ur Specific [place] Urine Protein Urine Glucose (UA) Urine Ketones Urine Blood Urine Nitrite Ur Leukocyte Esterase Urine WBC (Auto) 09/24/19 18:20 Troponin I < 0.012 NT-Pro-B Natriuret Pep 110 Impressions: Chest X-Ray 09/24/19 17:55 IMPRESSION: Vascular congestion with cardiac enlargement and small bilateral pleural effusions. Assessment & Plan - Diagnosis (1) Acute and chronic respiratory failure ([id number]) Qualifiers: Respiratory failure complication: hypoxia and hypercapnia Qualified Code(s): J96.21 - Acute and chronic respiratory failure with hypoxia; J96.22 - Acute and chronic respiratory failure with hypercapnia Is this a current diagnosis for this admission?: Yes Plan: See covering admitting attending physician orders for details about care plan. (2) COPD with acute exacerbation Is this a current diagnosis for this admission?: Yes Plan: See covering admitting attending physician orders for details about care plan. (3) Diabetes mellitus type 2 in obese Is this a current diagnosis for this admission?: Yes Plan: See covering admitting attending physician orders for details about care plan. (4) Sleep apnea syndrome Qualifiers: Sleep apnea type: unspecified type Is this a current diagnosis for this admission?: Yes Plan: See covering admitting attending physician orders for details about care plan. (5) Obesity, Class II, BMI 35-39.9 Is this a current diagnosis for this admission?: Yes Plan: See covering admitting attending physician orders for details about care plan. (6) Noncompliance Is this a current diagnosis for this admission?: Yes Plan: See covering admitting attending physician orders for details about care plan. - Time Time Spent: 50 to 70 Minutes Medications reviewed and adjusted accordingly: Yes Anticipated discharge: Home with Homehealth Within: Other - Inpatient Certification Based on my medical assessment, after consideration of the patient's comorbidities, presenting symptoms, or acuity I expect that the services needed warrant INPATIENT care.: Yes I certify that my determination is in accordance with my understanding of Medicare's requirements for reasonable and necessary INPATIENT services [42 CFR 412.3e].: Yes Medical Necessity: Significant Comorbidiites Make Outpatient Treatment Too Risky, Need Close Monitoring Due to Risk of Patient Decompensation, Need For IV Fluids, Need For Continuous Telemetry Monitoring, Need for Nebulizer Therapy and Monitoring of Response, Risk of Complication if Not Cared For in Hospital, Risk of Diagnosis Which Will Require Inpatient Eval/Care/Monitoring Post Hospital Care: D/C Customer Solutions Supervisor Documentation - Plan Summary Plan Summary: See covering admitting attending physician orders for details about care plan.
[2019-09-25] MEDS: SITAGLIPTIN PHOSPHATE 50 MG TABLET PO SCH (17:02)
[2019-09-25] MEDS: METFORMIN HCL 500 MG TABLET PO SCH (17:02)
[2019-09-25] MEDS: GABAPENTIN 100 MG CAPSULE PO SCH (17:02)
[2019-09-25] MEDS ORDERED: (PENDING PHARMACY ID) (Sitagliptin Phos/Metformin Hcl [Janumet 50-500 Mg Tablet] 1 EACH) PO SCH (18:00)
[2019-09-25] MEDS: INSULIN GLARGINE,HUM.REC.ANLOG 1,000 UNIT/10 ML VIAL SUBCUT SCH (21:42)
[2019-09-25] MEDS ORDERED: INSULIN DETEMIR 65 UNIT SQ SCH (22:00)
[2019-09-25] MEDS ORDERED: INSULIN GLARGINE,HUM.REC.ANLOG 1,000 UNIT/10 ML VIAL SUBCUT SCH (22:00)
[2019-09-26 06:25] LABS: ABSOLUTE LYMPHOCYTES (AUTO) 0.9 10^3/uL (0.5-4.7); ABSOLUTE MONOCYTES (AUTO) 0.2 10^3/uL (0.1-1.4); ABSOLUTE NEUT (AUTO) 9.9 10^3/uL (1.7-8.2); BASOPHILS % (AUTO) 0.2 % (0-2); HEMATOCRIT 36.7 % (37.9-51.0); HEMOGLOBIN 12.5 g/dL (13.5-17.0); LYMPHOCYTES % (AUTO) 8.3 % (13-45); MEAN CORPUSCULAR HEMOGLOBIN 30.8 pg (27.0-33.4); MEAN CORPUSCULAR HGB CONC 34.1 g/dL (32.0-36.0); MEAN CORPUSCULAR VOLUME 90 fl (80-97); MONOCYTES % (AUTO) 1.7 % (3-13); PLATELET COUNT 198 10^3/uL (150-450); RED BLOOD COUNT 4.06 10^6/uL (4.35-5.55); RED CELL DISTRIBUTION WIDTH 14.7 % (11.5-14.0); SEGMENTED NEUTROPHILS % (AUTO) 89.8 % (42-78); TOTAL CELLS COUNTED % (AUTO) 100 %
[2019-09-26 06:33] LABS: ARTERIAL BLOOD BASE EXCESS 2.1 mmol/L; ARTERIAL BLOOD FIO2 35%; ARTERIAL BLOOD H2CO3 1.41 mmol/L (1.05-1.35); ARTERIAL BLOOD HCO3 27.6 mmol/L (20-24); ARTERIAL BLOOD O2 SATURATION 97.9 % (94-98); ARTERIAL BLOOD PCO2 46.7 mmHg (35-45); ARTERIAL BLOOD PH 7.39 (7.35-7.45); ARTERIAL BLOOD PO2 109.1 mmHg (80-100); ARTERIAL BLOOD TOTAL CO2 29.1 mmol/L (23-27)
[2019-09-26 06:35] LABS: ALBUMIN 3.6 g/dL (3.5-5.0); ALKALINE PHOSPHATASE 76 U/L (38-126); ANION GAP 12 (5-19); ASPARTATE AMINO TRANSFERASE 10 U/L (17-59); BILIRUBIN,DIRECT 0.3 mg/dL (0.0-0.4); BILIRUBIN,TOTAL 0.3 mg/dL (0.2-1.3); BLOOD UREA NITROGEN 38 mg/dL (7-20); CALCIUM 9.2 mg/dL (8.4-10.2); CARBON DIOXIDE 27 mmol/L (22-30); CHLORIDE 99 mmol/L (98-107); GLUCOSE 222 mg/dL (75-110); POTASSIUM 4.6 mmol/L (3.6-5.0); TOTAL PROTEIN 6.1 g/dL (6.3-8.2)
[2019-09-26] MEDS: METHYLPREDNISOLONE INJ 125 MG/2 ML SDV IV SCH ×3 (06:57→21:51)
[2019-09-26] MEDS: INSULIN LISPRO 100 UNIT/ML 3 ML VIAL SUBCUT SCH ×8 (08:09→21:52)
[2019-09-26] MEDS: IPRATROPIUM/ALBUTEROL 0.5-2.5 MG/3 ML AMPUL NEB PRN ×3 (08:38→20:22)
[2019-09-26] MEDS ORDERED: (PENDING PHARMACY ID) (Empagliflozin [Jardiance] 10 MG) PO SCH ×2 (10:00)
[2019-09-26] MEDS ORDERED: (PENDING PHARMACY ID) (Lisinopril [Zestril] 2.5 MG) PO SCH (10:00)
[2019-09-26] MEDS ORDERED: (PENDING PHARMACY ID) (Diltiazem Hcl [Diltiazem 24hr Er] 120 MG) PO SCH (10:00)
[2019-09-26] MEDS: ATORVASTATIN CALCIUM 40 MG TABLET PO SCH (10:56)
[2019-09-26] MEDS: ASPIRIN 81 MG TABLET, ENT COATED PO SCH (10:56)
[2019-09-26] MEDS: GABAPENTIN 100 MG CAPSULE PO SCH ×3 (10:56→17:10)
[2019-09-26] MEDS: PANTOPRAZOLE SODIUM 40 MG TABLET.DR PO SCH (10:57)
[2019-09-26] MEDS: METFORMIN HCL 500 MG TABLET PO SCH ×2 (10:57→17:10)
[2019-09-26] MEDS: FUROSEMIDE 20 MG TABLET PO SCH (10:57)
[2019-09-26] MEDS: SITAGLIPTIN PHOSPHATE 50 MG TABLET PO SCH ×2 (10:57→17:10)
[2019-09-26] MEDS: TAMSULOSIN HCL 0.4 MG CAP.SR.24H PO SCH (10:57)
[2019-09-26] MEDS: LISINOPRIL 5 MG TABLET PO SCH (10:57)
[2019-09-26] MEDS: ENOXAPARIN SODIUM INJ 40 MG/0.4 ML DISP.SYRIN SUBCUT SCH (10:58)
[2019-09-26] MEDS: INSULIN GLARGINE,HUM.REC.ANLOG 1,000 UNIT/10 ML VIAL SUBCUT SCH ×2 (10:58→21:51)
--- NOTE | 2019-09-26 11:42 | PDOC PROGRESS REPORT ---
Subjective Progress Note for:: 09/26/19 Subjective:: Patient is currently off BiPAP support. remain on supplemental oxygen via nasal cannula at 5L/min. No chest pain, fever or chills. No abdominal pain, nausea or vomiting. Reason For Visit: COPD WITH ACUTE EXACERBATION Physical Exam Vital Signs: Temp Pulse Resp BP Pulse Ox 97.4 F 62 22 H 106/51 L 95 09/26/19 07:43 09/26/19 08:38 09/26/19 08:38 09/26/19 07:43 09/26/19 08:38 Intake & Output 09/25/19 09/26/19 09/27/19 05:59 06:59 06:59 Intake Total Output Total Balance Weight General appearance: PRESENT: mild distress, obese Head exam: PRESENT: atraumatic, normocephalic Eye exam: PRESENT: conjunctiva pink. ABSENT: scleral icterus Ear exam: PRESENT: normal external ear exam Mouth exam: PRESENT: moist Teeth exam: PRESENT: poor dentation Respiratory exam: PRESENT: decreased breath sounds, rhonchi - minimal expiratory phase Cardiovascular exam: PRESENT: RRR, +S1, +S2. ABSENT: diastolic murmur, rubs, systolic murmur Vascular exam: ABSENT: pallor GI/Abdominal exam: PRESENT: normal bowel sounds, soft. ABSENT: distended, guarding, mass, organolmegaly, rebound, tenderness Extremities exam: ABSENT: pedal edema Neurological exam: PRESENT: alert, awake, oriented to person, oriented to place, oriented to time, oriented to situation, CN II-XII grossly intact. ABSENT: motor sensory deficit Psychiatric exam: PRESENT: appropriate affect, normal mood. ABSENT: homicidal ideation, suicidal ideation Skin exam: PRESENT: dry, warm Results Laboratory Results: 09/26/19 05:35 09/26/19 05:35 09/26/19 09/26/19 09/26/19 05:35 05:35 06:09 WBC 11.0 H RBC 4.06 L Hgb 12.5 L Hct 36.7 L MCV 90 MCH 30.8 MCHC 34.1 RDW 14.7 H Plt Count 198 Seg Neutrophils % 89.8 H Carbonic Acid 1.41 H HCO3/H2CO3 Ratio 19:1 ABG pH 7.39 ABG pCO2 46.7 H ABG pO2 109.1 H ABG HCO3 27.6 H ABG O2 Saturation 97.9 ABG Base Excess 2.1 FiO2 35% Sodium 137.8 Potassium 4.6 Chloride 99 Carbon Dioxide 27 Anion Gap 12 BUN 38 H Creatinine 0.94 Est GFR ( Amer) > 60 Glucose 222 H Calcium 9.2 Total Bilirubin 0.3 AST 10 L Alkaline Phosphatase 76 Total Protein 6.1 L Albumin 3.6 09/24/19 18:20 Troponin I < 0.012 NT-Pro-B Natriuret Pep 110 Impressions: Chest X-Ray 09/24/19 17:55 IMPRESSION: Vascular congestion with cardiac enlargement and small bilateral pleural effusions. Assessment & Plan - Diagnosis (1) Acute and chronic respiratory failure ([id number]) Qualifiers: Respiratory failure complication: hypoxia and hypercapnia Qualified Code(s): J96.21 - Acute and chronic respiratory failure with hypoxia; J96.22 - Acute and chronic respiratory failure with hypercapnia Is this a current diagnosis for this admission?: Yes (2) COPD with acute exacerbation Is this a current diagnosis for this admission?: Yes (3) Diabetes mellitus type 2 in obese Is this a current diagnosis for this admission?: Yes (4) Sleep apnea syndrome Qualifiers: Sleep apnea type: unspecified type Is this a current diagnosis for this admission?: Yes (5) Obesity, Class II, BMI 35-39.9 Is this a current diagnosis for this admission?: Yes (6) Noncompliance Is this a current diagnosis for this admission?: Yes - Time Time Spent with patient: 25-34 minutes Level of Care: IMCU Medications reviewed and adjusted accordingly: Yes Anticipated discharge: Home with Homehealth Within: Other - Inpatient Certification Based on my medical assessment, after consideration of the patient's comorbidities, presenting symptoms, or acuity I expect that the services needed warrant INPATIENT care.: Yes I certify that my determination is in accordance with my understanding of Medicare's requirements for reasonable and necessary INPATIENT services [42 CFR 412.3e].: Yes Medical Necessity: Significant Comorbidiites Make Outpatient Treatment Too Risky, Need Close Monitoring Due to Risk of Patient Decompensation, Need For IV Fluids, Need For Continuous Telemetry Monitoring, Need for Nebulizer Therapy and Monitoring of Response, Risk of Complication if Not Cared For in Hospital, Risk of Diagnosis Which Will Require Inpatient Eval/Care/Monitoring Post Hospital Care: D/C Appeals Writer Documentation - Plan Summary Plan Summary: Decrease IV Solu Medrol to 80 mg q 8hours. Maintain on all other current medication management. Encouraged ambulation as tolerated.
[2019-09-26] MEDS: DILTIAZEM HCL 120 MG CAP.SR.24H PO SCH (13:11)
[2019-09-27] MEDS: METHYLPREDNISOLONE INJ 125 MG/2 ML SDV IV SCH (06:37)
--- NOTE | 2019-09-27 08:34 | PDOC PROGRESS REPORT ---
Subjective Progress Note for:: 09/27/19 Subjective:: Patient was admitting in the hospital for the respiratory failure and COPD acute exacerbations Patient is currently doing much better patient's wants to go home Patient currently using the BiPAP at home and according to the patient's the mask with some issues Patient's denied any chest pain No fever no chills Reason For Visit: COPD WITH ACUTE EXACERBATION Physical Exam Vital Signs: Temp Pulse Resp BP Pulse Ox 97.5 F 68 21 H 114/42 L 98 09/26/19 19:55 09/27/19 07:00 09/27/19 04:35 09/26/19 23:26 09/27/19 04:35 Intake & Output 09/26/19 09/27/19 09/28/19 06:59 06:59 06:59 Intake Total 3022 Output Total 925 Balance 2097 Weight 101.2 kg General appearance: PRESENT: no acute distress, well-developed, well-nourished Head exam: PRESENT: atraumatic, normocephalic Eye exam: PRESENT: conjunctiva pink, EOMI, PERRLA. ABSENT: scleral icterus Ear exam: PRESENT: normal external ear exam Mouth exam: PRESENT: moist, tongue midline Neck exam: PRESENT: full ROM. ABSENT: carotid bruit, JVD, lymphadenopathy, thyromegaly Respiratory exam: PRESENT: clear to auscultation [place] Cardiovascular exam: PRESENT: RRR. ABSENT: diastolic murmur, rubs, systolic murmur Pulses: PRESENT: normal dorsalis pedis pul, +2 pedal pulses bilateral Vascular exam: PRESENT: normal capillary refill GI/Abdominal exam: PRESENT: normal bowel sounds, soft. ABSENT: distended, gua rding, mass, organolmegaly, rebound, tenderness Rectal exam: PRESENT: deferred Musculoskeletal exam: PRESENT: ambulatory Neurological exam: PRESENT: alert, awake, oriented to person, oriented to place, oriented to time, oriented to situation, CN II-XII grossly intact. ABSENT: motor sensory deficit Psychiatric exam: PRESENT: appropriate affect, normal mood. ABSENT: homicidal ideation, suicidal ideation Skin exam: PRESENT: dry, intact, warm. ABSENT: cyanosis, rash Results Laboratory Results: 09/26/19 05:35 09/26/19 05:35 09/24/19 18:20 Troponin I < 0.012 NT-Pro-B Natriuret Pep 110 Impressions: Chest X-Ray 09/24/19 17:55 IMPRESSION: Vascular congestion with cardiac enlargement and small bilateral pleural effusions. Assessment & Plan - Diagnosis (1) Acute and chronic respiratory failure ([id number]) Qualifiers: Respiratory failure complication: hypoxia and hypercapnia Qualified Code(s): J96.21 - Acute and chronic respiratory failure with hypoxia; J96.22 - Acute and chronic respiratory failure with hypercapnia Is this a current diagnosis for this admission?: Yes Plan: Currently all improving continues to use the BiPAP we will asked the materials planner/production planner to make a help for the patient's new mask if needed (2) COPD with acute exacerbation Is this a current diagnosis for this admission?: Yes Plan: Discontinues the IV Solu-Medrol start on a p.o. prednisone (3) Diabetes mellitus type 2 in obese Is this a current diagnosis for this admission?: Yes Plan: Continues a sliding scale (4) Hypertension Qualifiers: Hypertension type: essential hypertension Is this a current diagnosis for this admission?: Yes (5) Sleep apnea syndrome Qualifiers: Sleep apnea type: unspecified type Is this a current diagnosis for this admission?: Yes - Time Time Spent with patient: 25-34 minutes Level of Care: IMCU Medications reviewed and adjusted accordingly: Yes Anticipated discharge: Home with Homehealth Within: within 24 hours - Plan Summary Plan Summary: Discussed with the patient's to discontinues the IV Solu-Medrol stay another 24 hours before patients can go home
[2019-09-27] MEDS: IPRATROPIUM/ALBUTEROL 0.5-2.5 MG/3 ML AMPUL NEB PRN ×2 (08:56→20:14)
[2019-09-27] MEDS: INSULIN LISPRO 100 UNIT/ML 3 ML VIAL SUBCUT SCH ×7 (09:24→21:57)
[2019-09-27] MEDS: DILTIAZEM HCL 120 MG CAP.SR.24H PO SCH (09:25)
[2019-09-27] MEDS: PREDNISONE 20 MG TABLET PO SCH ×2 (09:25→17:27)
[2019-09-27] MEDS: METFORMIN HCL 500 MG TABLET PO SCH ×2 (09:26→17:27)
[2019-09-27] MEDS: ASPIRIN 81 MG TABLET, ENT COATED PO SCH (09:26)
[2019-09-27] MEDS: INSULIN GLARGINE,HUM.REC.ANLOG 1,000 UNIT/10 ML VIAL SUBCUT SCH (09:26)
[2019-09-27] MEDS: TAMSULOSIN HCL 0.4 MG CAP.SR.24H PO SCH (09:26)
[2019-09-27] MEDS: SITAGLIPTIN PHOSPHATE 50 MG TABLET PO SCH ×2 (09:26→17:51)
[2019-09-27] MEDS: ENOXAPARIN SODIUM INJ 40 MG/0.4 ML DISP.SYRIN SUBCUT SCH (09:27)
[2019-09-27] MEDS: ATORVASTATIN CALCIUM 40 MG TABLET PO SCH (09:27)
[2019-09-27] MEDS: GABAPENTIN 100 MG CAPSULE PO SCH ×3 (09:27→17:27)
[2019-09-27] MEDS: FUROSEMIDE 20 MG TABLET PO SCH (09:27)
[2019-09-27] MEDS: LISINOPRIL 5 MG TABLET PO SCH (09:27)
[2019-09-27] MEDS: PANTOPRAZOLE SODIUM 40 MG TABLET.DR PO SCH (09:28)
--- NOTE | 2019-09-27 09:45 | RADIOLOGY REPORT (SQ) ---
EXAM DESCRIPTION: CHEST 2 VIEWS COMPLETED DATE/TIME: 09/27/2019 9:25 am REASON FOR STUDY: copd COMPARISON: 09/24/2019 EXAM PARAMETERS: NUMBER OF VIEWS: two views TECHNIQUE: Digital Frontal and Lateral radiographic views of the chest acquired. RADIATION DOSE: NA LIMITATIONS: none FINDINGS: LUNGS AND PLEURA: Bibasilar interstitial prominence without overt alveolar edema. Small b ilateral effusions. No pneumothorax. MEDIASTINUM AND HILAR STRUCTURES: Stable. HEART AND VASCULAR STRUCTURES: Enlarged cardiac silhouette with central vascular congestion. BONES: No acute findings. HARDWARE: None in the chest. OTHER: No other significant finding. IMPRESSION: Enlarged cardiac silhouette with likely mild interstitial edema and small bilateral effu sions. TECHNICAL DOCUMENTATION: JOB ID: [id number] 2010 [employer]- All Rights Reserved Reading location - IP/workstation name: [email or web address]
[2019-09-28] MEDS: INSULIN GLARGINE,HUM.REC.ANLOG 1,000 UNIT/10 ML VIAL SUBCUT SCH (00:58)
--- NOTE | 2019-09-28 09:01 | PDOC DISCHARGE SUMMARY ---
Impression - Admit/DC Date/PCP Admission Date/Primary Care Provider: 09/25/19 00:02 ARTEMIO KAMINSKI MD Discharge Date: 09/28/19 - Discharge Diagnosis (1) Acute and chronic respiratory failure ([id number]) Is this a current diagnosis for this admission?: Yes (2) COPD with acute exacerbation Is this a current diagnosis for this admission?: Yes (3) Diabetes mellitus type 2 in obese Is this a current diagnosis for this admission?: Yes (4) Hypertension Is this a current diagnosis for this admission?: Yes (5) Sleep apnea syndrome Is this a current diagnosis for this admission?: Yes - Additional Information Discharge Diet: Diabetic Discharge Activity: Activity As Tolerated Referrals: ARTEMIO KAMINSKI MD [Primary Care Provider] - 10/05/19 10:00 am Prescriptions: Prednisone [Deltasone 20 mg Tablet] 20 mg PO DAILY #10 tablet Doxycycline Hyclate 100 mg PO BID #14 tablet.dr Home Medications: Aspirin [Adult Low Dose Aspirin EC] 81 mg PO DAILY 06/25/19 Atorvastatin Calcium [Lipitor 40 mg Tablet] 40 mg PO DAILY 06/25/19 Diltiazem HCl [Diltiazem 24Hr ER] 120 mg PO DAILY 06/25/19 Empagliflozin [Jardiance] 10 mg PO DAILY 06/25/19 Fluticasone Propionate [Flonase Nasal Argyle 50 Mcg/Argyle 16 gm] 1 spray NASL Q12 06/25/19 Fluticasone/Umeclidin/Vilanter [Trelegy 100-62.5-25 Mcg Ellipta 14 Dose/Dpi] 1 puff IH DAILY 06/25/19 Furosemide [Lasix 20 mg Tablet] 10 mg PO DAILY 06/25/19 Gabapentin [Neurontin 100 mg Capsule] 100 mg PO TID 06/25/19 Insulin Aspart [Novolog Flexpen] 5 unit SQ AC 06/25/19 Insulin Detemir [Levemir] 65 unit SQ Q12 06/25/19 Ipratropium/Albuterol Sulfate [Combivent Respimat 4 gm Mdi] 1 puff IH Q6 06/25/19 Lisinopril [Zestril] 2.5 mg PO DAILY 06/25/19 Sitagliptin Phos/Metformin HCl [Janumet 50-500 mg Tablet] 1 each PO BID 06/25/19 Tamsulosin HCl [Flomax] 0.4 mg PO DAILY 06/25/19 Doxycycline Hyclate 100 mg PO BID #14 tablet. 09/28/19 Prednisone [Deltasone 20 mg Tablet] 20 mg PO DAILY #10 tablet 09/28/19 History of Present Illiness History of Present Illness: ADÁN CHEUNG is a 53 year old male This is a 53-year-old male very noncompliance admitting in the hospital for the COPD acute exacerbation and acute Respiratory failure on chronic disease Patient is usually started on IV steroids patient responds very well with that switch to the p.o. steroids patient also put on oxygen and a BiPAP pt usually need oxygen on a BiPAP at home's Patient otherwise doing well walking the hallway without any problems p.o. intake is good and patients wants to go home's pt Is discharged home with home oxygen and a BiPAP Hospital Course Hospital Course: his is a 53-year-old male very noncompliance admitting in the hospital for the COPD acute exacerbation and acute Respiratory failure on chronic disease Patient is usually started on IV steroids patient responds very well with that switch to the p.o. steroids patient also put on oxygen and a BiPAP pt usually need oxygen on a BiPAP at home's Patient otherwise doing well walking the hallway without any problems p.o. int andrew is good and patients wants to go home's pt Is discharged home with home oxygen and a BiPAP Patient is to follow-up with the pulmonary Dr. Stewart outpatients in patients follow in my office in 1 week His other medical problem is all stable discussed with the patient's to watch the blood sugar while patient in the tapering dose of the steroids Physical Exam Vital Signs: Temp Pulse Resp BP Pulse Ox 97.4 F 71 19 147/71 H 96 09/28/19 08:25 09/28/19 08:25 09/28/19 08:25 09/28/19 08:25 09/28/19 08:25 Intake & Output 09/27/19 09/28/19 09/29/19 06:59 06:59 06:59 Intake Total 3022 2703 Output Total 925 600 Balance 2097 2103 Weight 101.2 kg 105.6 kg General appearance: PRESENT: no acute distress, well-developed, well-nourished Head exam: PRESENT: atraumatic, normocephalic Eye exam: PRESENT: conjunctiva pink, EOMI, PERRLA. ABSENT: scleral icterus Ear exam: PRESENT: normal external ear exam Mouth exam: PRESENT: moist, tongue midline Neck exam: ABSENT: carotid bruit, JVD, lymphadenopathy, thyromegaly Respiratory exam: PRESENT: clear to auscultation allyson. ABSENT: rales, rhonchi, wheezes Cardiovascular exam: PRESENT: RRR. ABSENT: diastolic murmur, rubs, systolic murmur Pulses: PRESENT: normal dorsalis pedis pul Vascular exam: PRESENT: normal capillary refill GI/Abdominal exam: PRESENT: normal bowel sounds, soft. ABSENT: distended, guarding, mass, organolmegaly, rebound, tenderness Rectal exam: PRESENT: deferred Extremities exam: PRESENT: full ROM. ABSENT: calf tenderness, clubbing, pedal edema Musculoskeletal exam: PRESENT: ambulatory Neurological exam: PRESENT: alert, awake, oriented to person, oriented to place, oriented to time, oriented to situation, CN II-XII grossly intact. ABSENT: motor sensory deficit Psychiatric exam: PRESENT: appropriate affect, normal mood. ABSENT: homicidal ideation, suicidal ideation Skin exam: PRESENT: dry, intact, warm. ABSENT: cyanosis, rash Results Laboratory Results: WBC 11.0 10^3/uL (4.0-10.5) H 09/26/19 05:35 RBC 4.06 10^6/uL (4.35-5.55) L 09/26/19 05:35 Hgb 12.5 g/dL (13.5-17.0) L 09/26/19 05:35 Hct 36.7 % (37.9-51.0) L 09/26/19 05:35 MCV 90 fl (80-97) 09/26/19 05:35 MCH 30.8 pg (27.0-33.4) 09/26/19 05:35 MCHC 34.1 g/dL (32.0-36.0) 09/26/19 05:35 RDW 14.7 % (11.5-14.0) H 09/26/19 05:35 Plt Count 198 10^3/uL (150-450) 09/26/19 05:35 Lymph % (Auto) 8.3 % (13-45) L 09/26/19 05:35 Lamar % (Auto) 1.7 % (3-13) L 09/26/19 05:35 Eos % (Auto) 0.0 % (0-6) 09/26/19 05:35 Baso % (Auto) 0.2 % (0-2) 09/26/19 05:35 Absolute Neuts (auto) 9.9 10^3/uL (1.7-8.2) H 09/26/19 05:35 Absolute Lymphs (auto) 0.9 10^3/uL (0.5-4.7) 09/26/19 05:35 Absolute Monos (auto) 0.2 10^3/uL (0.1-1.4) 09/26/19 05:35 Absolute Eos (auto) 0.0 10^3/uL (0.0-0.6) 09/26/19 05:35 Absolute Basos (auto) 0.0 10^3/uL (0.0-0.2) 09/26/19 05:35 Seg Neutrophils % 89.8 % (42-78) H 09/26/19 05:35 Carbonic Acid 1.41 mmol/L (1.05-1.35) H 09/26/19 06:09 HCO3/H2CO3 Ratio 19:1 09/26/19 06:09 ABG pH 7.39 (7.35-7.45) 09/26/19 06:09 ABG pCO2 46.7 mmHg (35-45) H 09/26/19 06:09 ABG pO2 109.1 mmHg (80-100) H 09/26/19 06:09 ABG HCO3 27.6 mmol/L (20-24) H 09/26/19 06:09 ABG Total CO2 29.1 mmol/L (23-27) H 09/26/19 06:09 ABG O2 Saturation 97.9 % (94-98) 09/26/19 06:09 ABG Base Excess 2.1 mmol/L 09/26/19 06:09 FiO2 35% 09/26/19 06:09 Sodium 137.8 mmol/L (137-145) 09/26/19 05:35 Potassium 4.6 mmol/L (3.6-5.0) 09/26/19 05:35 Chloride 99 mmol/L (98-107) 09/26/19 05:35 Carbon Dioxide 27 mmol/L (22-30) 09/26/19 05:35 Anion Gap 12 (5-19) 09/26/19 05:35 BUN 38 mg/dL (7-20) H 09/26/19 05:35 Creatinine 0.94 mg/dL (0.52-1.25) 09/26/19 05:35 Est GFR ( Amer) > 60 (>60) 09/26/19 05:35 Est GFR (MDRD) Non-Af > 60 (>60) 09/26/19 05:35 Glucose 222 mg/dL (75-110) H 09/26/19 05:35 POC Glucose 166 mg/dL (70-110) H 09/28/19 07:24 Calcium 9.2 mg/dL (8.4-10.2) 09/26/19 05:35 Total Bilirubin 0.3 mg/dL (0.2-1.3) 09/26/19 05:35 Direct Bilirubin 0.3 mg/dL (0.0-0.4) 09/26/19 05:35 Neonat Total Bilirubin Not Reportable 09/26/19 05:35 Neonat Direct Bilirubin Not Reportable 09/26/19 05:35 Neonat Indirect Bili Not Reportable 09/26/19 05:35 AST 10 U/L (17-59) L 09/26/19 05:35 ALT 7 U/L (<50) 09/26/19 05:35 Alkaline Phosphatase 76 U/L (38-126) 09/26/19 05:35 Troponin I < 0.012 ng/mL 09/24/19 18:20 NT-Pro-B Natriuret Pep 110 pg/mL (<125) 09/24/19 18:20 Total Protein 6.1 g/dL (6.3-8.2) L 09/26/19 05:35 Albumin 3.6 g/dL (3.5-5.0) 09/26/19 05:35 Urine Color STRAW 09/24/19 18:35 Urine Appearance CLEAR 09/24/19 18:35 Urine pH 5.0 (5.0-9.0) 09/24/19 18:35 Ur Specific Manter 1.012 09/24/19 18:35 Urine Protein NEGATIVE mg/dL (NEGATIVE) 09/24/19 18:35 Urine Glucose (UA) >=500 mg/dL (NEGATIVE) H 09/24/19 18:35 Urine Ketones NEGATIVE mg/dL (NEGATIVE) 09/24/19 18:35 Urine Blood NEGATIVE (NEGATIVE) 09/24/19 18:35 Urine Nitrite NEGATIVE (NEGATIVE) 09/24/19 18:35 Urine Bilirubin NEGATIVE (NEGATIVE) 09/24/19 18:35 Urine Urobilinogen NEGATIVE mg/dL (<2.0) 09/24/19 18:35 Ur Leukocyte Esterase NEGATIVE (NEGATIVE) 09/24/19 18:35 Urine WBC (Auto) 1 /HPF 09/24/19 18:35 Urine Mucus (Auto) RARE /LPF 09/24/19 18:35 Urine Ascorbic Acid NEGATIVE (NEGATIVE) 09/24/19 18:35 Influenza A (Rapid) NEGATIVE (NEGATIVE) 09/24/19 21:59 Influenza B (Rapid) NEGATIVE (NEGATIVE) 09/24/19 21:59 09/24/19 18:20 Troponin I < 0.012 NT-Pro-B Natriuret Pep 110 Impressions: Chest X-Ray 09/24/19 17:55 IMPRESSION: Vascular congestion with cardiac enlargement and small bilateral pleural effusions. Chest X-Ray 09/27/19 00:00 IMPRESSION: Enlarged cardiac silhouette with likely mild interstitial edema and small bilateral effusions. Plan Time Spent: Greater than 30 Minutes - Follow in office 1 week follow-up with the pulmonary Stroke Is this a Stroke Patient?: No Acute Heart Failure - Is this a Heart Failure Patient?: No
[2019-09-28 09:28] VITALS: BP 97/63
== END 2019-09-28 09:00 | disposition home or self-care (01) | DRG 189 ==
LOC: ER 17:53 → EH 09-25 00:02 → 3W 09-25 01:13
PROVIDERS: ADMIT Family Medicine; ATTEND Family Medicine
PROC: 5A09457 Assistance with Respiratory Ventilation, 24-96 Consecutive Hours, Continuous Positive Airway Pressure (ICD-10-PCS; principal; 2019-09-24)
DX: J96.21 Acute and chronic respiratory failure with hypoxia (principal); J44.1 Chronic obstructive pulmonary disease with (acute) exacerbation; J96.22 Acute and chronic respiratory failure with hypercapnia; E11.9 Type 2 diabetes mellitus without complications; E66.9 Obesity, unspecified; I10 Essential (primary) hypertension; F17.210 Nicotine dependence, cigarettes, uncomplicated; E78.5 Hyperlipidemia, unspecified; G47.33 Obstructive sleep apnea (adult) (pediatric); I25.2 Old myocardial infarction; Z79.82 Long term (current) use of aspirin; Z79.4 Long term (current) use of insulin; Z79.899 Other long term (current) drug therapy; Z91.19 Patient's noncompliance with other medical treatment and regimen; Z88.1 Allergy status to other antibiotic agents; Z91.041 Radiographic dye allergy status; Z88.0 Allergy status to penicillin; Z91.018 Allergy to other foods; Z99.81 Dependence on supplemental oxygen
CPT/HCPCS: 36415; 36600; 71045; 71046; 80053; 81001; 82803; 82962; 83880; 84484; 85025; 87804; 93005; 93010; 94640; 94660; 96374; 99291; J1650; J1815; J2930; J3490; J7512; J7620

== ENCOUNTER 2019-11-04 22:26 | Inpatient (IN) | payer MEDICARE, MEDICAID ==
[2019-11-04 23:47] LABS: ABSOLUTE BASOPHILS # (AUTO) 0.1 10^3/uL (0.0-0.2); ABSOLUTE LYMPHOCYTES (AUTO) 1.5 10^3/uL (0.5-4.7); ABSOLUTE MONOCYTES (AUTO) 0.5 10^3/uL (0.1-1.4); BASOPHILS % (AUTO) 0.9 % (0-2); EOSINOPHILS % (AUTO) 0.4 % (0-6); HEMATOCRIT 39.8 % (37.9-51.0); HEMOGLOBIN 13.4 g/dL (13.5-17.0); MEAN CORPUSCULAR HEMOGLOBIN 31.5 pg (27.0-33.4); MEAN CORPUSCULAR HGB CONC 33.7 g/dL (32.0-36.0); MEAN CORPUSCULAR VOLUME 94 fl (80-97); MONOCYTES % (AUTO) 5.6 % (3-13); PLATELET COUNT 160 10^3/uL (150-450); RED BLOOD COUNT 4.25 10^6/uL (4.35-5.55); RED CELL DISTRIBUTION WIDTH 14.7 % (11.5-14.0); SEGMENTED NEUTROPHILS % (AUTO) 77.1 % (42-78); TOTAL CELLS COUNTED % (AUTO) 100 %; WHITE BLOOD COUNT 9.1 10^3/uL (4.0-10.5)
[2019-11-05 00:02] LABS: ALBUMIN 4.3 g/dL (3.5-5.0); ALKALINE PHOSPHATASE 106 U/L (38-126); ANION GAP 10 (5-19); ASPARTATE AMINO TRANSFERASE 21 U/L (17-59); BILIRUBIN,DIRECT 0.1 mg/dL (0.0-0.4); BILIRUBIN,TOTAL 0.5 mg/dL (0.2-1.3); BLOOD UREA NITROGEN 19 mg/dL (7-20); CALCIUM 9.4 mg/dL (8.4-10.2); CARBON DIOXIDE 25 mmol/L (22-30); CHLORIDE 103 mmol/L (98-107); GLUCOSE 164 mg/dL (75-110); POTASSIUM 5.2 mmol/L (3.6-5.0); TOTAL PROTEIN 6.7 g/dL (6.3-8.2)
--- NOTE | 2019-11-05 00:02 | RADIOLOGY REPORT (SQ) ---
EXAM DESCRIPTION: XR CHEST 1 VIEW COMPLETED DATE/TME: 11/04/2019 22:48 CLINICAL HISTORY: 53 years, Male, SHORTNESS OF BREATH COMPARISON: 09/27/2019 chest NUMBER OF VIEWS: 1 TECHNIQUE: Portable chest LIMITATIONS: None. FINDINGS: The heart size is stable. Improvement in interstitial edema. Hazy opacities over each lung base. Scarring in the left midlung. No pneumothorax IMPRESSION: Improvement in interstitial edema. Persistent bibasilar airspace opacities which may reflect a combination of layering effusion/atelectasis. Underlying pneumonia not excluded copyright 2010 [employer]- All Rights Reserved
[2019-11-05 00:04] LABS: INTERNATIONAL RATION (INR) 0.97; PROTHROMBIN TIME 12.9 SEC (11.4-15.4)
[2019-11-05] MEDS ORDERED: FUROSEMIDE INJ/PF 40 MG/4 ML SDV IV ONE (00:13)
[2019-11-05] MEDS ORDERED: CEFEPIME 2 GM/D5W RTU 2 GM/50 ML RTUPB IV ONE (00:14)
--- NOTE | 2019-11-05 00:18 | ER Document Report ---
ED Respiratory Problem - General Chief Complaint: Shortness Of Breath Stated Complaint: TROUBLE BREATHING Time Seen by Provider: 11/05/19 00:04 Notes: Patient is a 53-year-old male that comes emergency department by EMS for chief complaint of difficulty breathing. Patient states that for the past 2 or so days he has had increased difficulty breathing, he is coughing up greenish sputum, he started to have night sweats and frequent chills and shaking. Patient was hypoxic initially per EMS at 77%, he was hypoxic on 6 L here at 85% and was transitioned immediately to BiPAP. He denies chest pain, vomiting, abdominal pain, headache, or any other complaints. He has a history of COPD on 4.5 L oxygen at all times, CHF, type 2 diabetes, hypertension, obesity. He continues to smoke. He was hospitalized here only a month ago. TRAVEL OUTSIDE OF THE [place] IN LAST 30 DAYS: No - Related Data Allergies/Adverse Reactions: amoxicillin [Amoxicillin] Adverse Reaction (Verified 09/24/19 18:13) Hives Iodinated Contrast Media [IV Dye, Iodine Containing] Adverse Reaction (Verified 09/24/19 18:13) Hives Penicillins Adverse Reaction (Verified 09/24/19 18:13) Hives Apricots Adverse Reaction (Mild, Uncoded 11/04/18 14:46) Hives Past Medical History - General Information source: Patient - Social History Smoking Status: Current Some Day Smoker Frequency of alcohol use: None Drug Abuse: None Lives with: Family Family History: COPD, Hypertension Patient has suicidal ideation: No Patient has homicidal ideation: No - Past Medical History Cardiac Medical History: Reports: Hx Congestive Heart Failure, Hx Heart Attack - 2018, Hx Hypercholesterolemia, Hx Hypertension Denies: Hx Coronary Artery Disease Pulmonary Medical History: Reports: Hx Asthma, Hx Bronchitis, Hx COPD, Hx Pneumonia Denies: Hx Tuberculosis Neurological Medical History: Denies: Hx Cerebrovascular Accident, Hx Migraine, Hx Seizures Endocrine Medical History: Reports: Hx Diabetes Mellitus Type 2 Renal/ Medical History: Denies: Hx Peritoneal Dialysis GI Medical History: Denies: Hx Cirrhosis, Hx Crohn's Disease, Hx Ulcerative Colitis Musculoskeletal Medical History: Denies Hx Arthritis Skin Medical History: Denies Hx Psoriasis Psychiatric Medical History: Reports: Hx Depression Traumatic Medical History: Denies: Hx Gunshot Wound, Hx Pneumothorax, Hx Traumatic Brain Injury Infectious Medical History: Denies: Hx HIV Past Surgical History: Reports: Hx Abdominal Surgery - hernia repair, Hx Cardiac Catheterization, Hx Cholecystectomy, Hx Orthopedic Surgery - R foot, Hx Tonsillectomy - Immunizations Hx Diphtheria, Pertussis, Tetanus Vaccination: Yes Hx Pneumococcal Vaccination: 04/20/13 Review of Systems - Review of Systems Constitutional: See HPI EENT: No symptoms reported Cardiovascular: See HPI Respiratory: See HPI Gastrointestinal: No symptoms reported Genitourinary: No symptoms reported Male Genitourinary: No symptoms reported Musculoskeletal: No symptoms reported Skin: No symptoms reported Hematologic/Lymphatic: No symptoms reported Neurological/Psychological: No symptoms reported Physical Exam - Vital signs Vitals: Resp Pulse Ox 25 H 100 11/04/19 22:26 11/04/19 22:26 - Notes Notes: GENERAL: Patient alert and interactive. Slightly ill-appearing. Disheveled in appearance. HEAD: Normocephalic, atraumatic. EYES: Pupils equal, round, and reactive to light. Extraocular movements intact. ENT: Oral mucosa moist, tongue midline. Oropharynx unremarkable. Airway patent. NECK: Full range of motion. Supple. Trachea midline. No lymphadenopathy. LUNGS: Decreased breath sounds bilaterally, breath sounds are present, rales noted in the lung bases especially on the right. Patient is able speak in full sentences on BiPAP. No labored breathing. HEART: Regular rate and rhythm. ABDOMEN: Soft, non-tender. Non-distended. EXTREMITIES: Moves all 4 extremities spontaneously. No edema, normal radial and dorsalis pedis pulses bilaterally. No cyanosis. BACK: no cervical, thoracic, lumbar midline tenderness. No saddle anesthesia, normal distal neurovascular exam. Moves all extremities in full range of motion. NEUROLOGICAL: Alert and oriented x3. Normal speech. Cranial nerves II through XII grossly intact. Strength 5/5 in all extremities. PSYCH: Normal affect, normal mood. SKIN: Warm, dry, normal turgor. No rashes or lesions noted. Course - Re-evaluation Re-evalutation: Patient with respiratory distress and hypoxia even on oxygen on initial evaluation, he was transitioned to BiPAP, on BiPAP his symptoms rapidly resolved. Patient now is relaxed, has no tachypnea or labored breathing, is able to speak in full sentences. Patient does have rales on exam, specially on the right, he was given a dose of Lasix. He is not hypotensive, febrile, or tachycardic. CBC unremarkable, chemistry unremarkable, troponin indeterminate, BNP is a ctually not elevated significantly. Venous blood gas shows slightly low pH but unremarkable CO2 and bicarbonate. Influenza negative, coronavirus is pending. Chest x-ray showing some vascular congestion, cannot exclude underlying pneumonia. Because of patient's chills, night sweats, cough, recent hospitalization, and possible underlying pneumonia he was covered with cefepime and vancomycin. On reevaluation patient still doing much better. Discussed with patient, patient will be discussed with his provider who is a hospitalist for admission. Patient states appreciation and agreement. Discussed with Dr. Hernandez, patient's provider, patient will be [place] [facility] [place]. He states he would like the patient to have a CT of the chest without contrast (he is allergic to contrast dye). - Vital Signs Vital signs: Temp Pulse Resp BP Pulse Ox 97.8 F 114 H 26 H 138/87 H 90 L 11/04/19 22:40 11/04/19 22:40 11/05/19 02:00 11/05/19 01:01 11/05/19 01:01 - Laboratory Result Diagrams: 11/04/19 23:22 11/04/19 23:22 Laboratory results interpreted by me: 11/04/19 11/04/19 11/05/19 23:22 23:22 00:09 RBC 4.25 L Hgb 13.4 L RDW 14.7 H VBG pH 7.29 L Potassium 5.2 H Glucose 164 H Critical Care Note - Critical Care Note Total time excluding time spent on procedures (mins): 35 - Respiratory distress, acute on chronic respiratory failure Comments: Please allow 35 minutes of critical care time for evaluation and management of patient with acute on chronic respiratory failure, respiratory distress, suspected pneumonia. Interventions including BiPAP, Lasix, antibiotics, multiple re-evaluations, review of previous and current records. Time spent discussing with patient and admitting to the [facility]. Discharge - Discharge Clinical Impression: Respiratory distress, Hypoxia, Chills Condition: Stable Disposition: ADMITTED INPATIENT Admitting Provider: David Santizo Admitted: [facility]
[2019-11-05 00:26] LABS: VENOUS BLOOD BASE EXCESS -0.1 mmol/L; VENOUS BLOOD HCO3 27.6 mmol/L (20-32); VENOUS BLOOD PCO2 58.8 mmHg (35-63); VENOUS BLOOD PH 7.29 (7.30-7.42)
[2019-11-05 00:52] LABS: A TYPE INFLUENZA AG NEGATIVE (NEGATIVE); B INFLUENZA AG NEGATIVE (NEGATIVE)
[2019-11-05] MEDS ORDERED: VANCOMYCIN HCL INJ 1000 MG VIAL IV ONE (00:54)
[2019-11-05] MEDS ORDERED: ACETAMINOPHEN 325 MG TABLET PO PRN (01:04)
[2019-11-05] MEDS ORDERED: DEXTROSE 40% GEL 15 GM TUBE PO PRN ×2 (01:09)
[2019-11-05] MEDS ORDERED: DEXTROSE 50%-WATER 25 GM/50 ML DISP.SYRIN IV PRN ×2 (01:09)
[2019-11-05] MEDS ORDERED: GLUCAGON,HUMAN RECOMB 1 MG INJ IM PRN (01:09)
[2019-11-05] MEDS ORDERED: IPRATROPIUM/ALBUTEROL 0.5-2.5 MG/3 ML AMPUL NEB SCH (04:00)
--- NOTE | 2019-11-05 04:41 | RADIOLOGY REPORT (SQ) ---
CLINICAL HISTORY: sob COMPARISON: None. TECHNIQUE: CT CHEST WITHOUT IV CONTRAST on 11/05/2019 12:00 AM CDT This exam was performed according to our departmental dose-optimization program, which includes automated exposure control, adjustment of the mA and/or kV according to patient size and/or use of iterative reconstruction technique. FINDINGS: The heart is normal in size. There is no pericardial effusion. Intrathoracic lymph nodes are not enlarged. There is no pleural effusion, pleural thickening or pneumothorax. Central airways are patent. There is minimal bibasilar scarring and atelectasis. In the upper abdomen, cholecystectomy was performed. There are no acute osseous findings. No suspicious bony lesions. IMPRESSION: No pneumonia.
[2019-11-05 05:25] LABS: APPEARANCE,URINE CLEAR; BILIRUBIN,URINE NEGATIVE (NEGATIVE); COLOR,URINE STRAW; GLUCOSE, URINE >=500 mg/dL (NEGATIVE); KETONES,URINE TRACE mg/dL (NEGATIVE); PROTEIN,URINE NEGATIVE (NEGATIVE); URINE SPECIFIC GRAVITY 1.007; UROBILINOGEN,URINE NEGATIVE mg/dL (<2.0)
[2019-11-05] MEDS: PANTOPRAZOLE SODIUM 20 MG TABLET.DR PO SCH (05:35)
[2019-11-05] MEDS ORDERED: METHYLPREDNISOLONE INJ 40 MG/1 ML SDV IV SCH (06:00)
[2019-11-05] MEDS ORDERED: IPRATROPIUM/ALBUTEROL 0.5-2.5 MG/3 ML AMPUL NEB PRN ×2 (06:59→08:04)
[2019-11-05 07:22] LABS: ANION GAP 12 (5-19); BLOOD UREA NITROGEN 22 mg/dL (7-20); CALCIUM 9.7 mg/dL (8.4-10.2); CARBON DIOXIDE 27 mmol/L (22-30); CHLORIDE 99 mmol/L (98-107); GLUCOSE 198 mg/dL (75-110); POTASSIUM 4.9 mmol/L (3.6-5.0)
[2019-11-05] MEDS ORDERED: (PENDING PHARMACY ID) (Insulin Aspart [Novolog Flexpen] 5 UNIT) SQ SCH (08:00)
--- NOTE | 2019-11-05 08:11 | EKG REPORT ---
SEVERITY:- BORDERLINE ECG - SINUS TACHYCARDIA PROBABLE LEFT ATRIAL ABNORMALITY BORDERLINE RIGHT AXIS DEVIATION : Confirmed by: Guillermo Pham MD 05-Nov-2019 08:10:58
[2019-11-05] MEDS: IPRATROPIUM/ALBUTEROL 0.5-2.5 MG/3 ML AMPUL NEB SCH ×3 (08:19→19:35)
[2019-11-05] MEDS: INSULIN LISPRO 100 UNIT/ML 3 ML VIAL SUBCUT SCH ×7 (08:35→21:08)
[2019-11-05] MEDS: METFORMIN HCL 500 MG TABLET PO SCH ×2 (08:37→16:01)
[2019-11-05] MEDS: SITAGLIPTIN PHOSPHATE 50 MG TABLET PO SCH ×2 (08:37→16:01)
--- NOTE | 2019-11-05 08:52 | PDOC H&P ---
History of Present Illness Admission Date/PCP: 11/05/19 01:07 ARTEMIO KAMINSKI MD Patient complains of: Difficulty in breathing History of Present Illness: ADÁN CHEUNG is a 53 year old male Patient is a 53-year-old male with a chronic respiratory failure currently on a BiPAP at home's history of the COPD history of the type 2 diabetesAnd the multiple hospital admissions intubated and noncompliance in a chronic smoker basically came to the emergency department with a difficulty in breathing on the BiPAP in the emergency department initial work-up of blood is all stable and patient at this point admitting in the hospital for further evaluations with respiratory failure and COPD Due to the ongoing pandemic will do the COVID testings but patient does not have any contact with any COVID Patient's CT of the chest is negative for any pneumonia Patient is recently called in office with complaining of her diarrhea recently was on antibiotic and put on a Flagyl due to possible C. difficile patient is currently denied any abdominal pain no diarrhea Patient is currently doing fair Denied any chest pain currently on a BiPAP seen on the bedside in the fifth fl oor and isolations Patient unable to get the breathing treatment due to the isolations currently be given Combivent and albuterol MDI Patient's denied any fever no chills Past Medical History Cardiac Medical History: Reports: Congestive Heart Failure, Myocardial Infarction - 2018, Hyperlipidema, Hypertension Denies: Coronary Artery Disease Pulmonary Medical History: Reports: Asthma, Bronchitis, Chronic Obstructive Pulmonary Disease (COPD), Pneumonia Denies: Tuberculosis Neurological Medical History: Denies: Migraine, Seizures Endocrine Medical History: Reports: Diabetes Mellitus Type 2 GI Medical History: Denies: Cirrhosis, Crohn's Disease, Ulcerative Colitis Musculoskeltal Medical History: Denies: Arthritis Skin Medical History: Denies: Psoriasis Psychiatric Medical History: Reports: Depression Traumatic Medical History: Denies: Gunshot Wound, Pneumothorax, Traumatic Brain Injury Hematology: Denies: Anemia, Hemophilia, Sickle Cell Disease Infectious Medical History: Denies: HIV Past Surgical History Past Surgical History: Reports: Cardiac Catheterization, Cholecystectomy, Orthopedic Surgery - R foot, Tonsillectomy Social History Information Source: Patient Lives with: Family Smoking Status: Current Every Day Smoker Cigarettes Packs Per Day: 1 Electronic Cigarette use?: No Frequency of Alcohol Use: Rare Hx Recreational Drug Use: No Drugs: None Hx Prescription Drug Abuse: No Family History Family History: Reviewed & Not Pertinent, COPD, Hypertension Parental Family History Reviewed: Yes Children Family History Reviewed: Yes Sibling(s) Family History Reviewed.: Yes Medication/Allergy Home Medications: Aspirin [Adult Low Dose Aspirin EC] 81 mg PO DAILY 06/25/19 Atorvastatin Calcium [Lipitor 40 mg Tablet] 40 mg PO QHS 06/25/19 Diltiazem HCl [Diltiazem 24Hr ER] 120 mg PO DAILY 06/25/19 Empagliflozin [Jardiance] 10 mg PO DAILY 06/25/19 Fluticasone Propionate [Flonase Nasal [place] 50 Mcg/[place] 16 gm] 1 spray NASL Q12HP PRN 06/25/19 Furosemide [Lasix 20 mg Tablet] 10 mg PO DAILY 06/25/19 Gabapentin [Neurontin 100 mg Capsule] 100 mg PO Q8 06/25/19 Insulin Aspart [Novolog Flexpen] 0 unit SQ .SLIDING SCALE 06/25/19 Insulin Detemir [Levemir] 65 unit SQ Q12 06/25/19 Ipratropium/Albuterol Sulfate [Combivent Respimat 4 gm Mdi] 1 puff IH QID 06/25/19 Lisinopril [Zestril] 2.5 mg PO DAILY 06/25/19 Sitagliptin Phos/Metformin HCl [Janumet 50-500 mg Tablet] 1 each PO BIDBS 06/25/19 Tamsulosin HCl [Flomax] 0.4 mg PO DAILY 06/25/19 Albuterol Sulfate [Ventolin Hfa 8 gm Mdi (1 Mdi/ER Disp)] 2 puff IH Q4HP PRN 11/05/19 Allergies/Adverse Reactions: amoxicillin [Amoxicillin] Adverse Reaction (Verified 09/24/19 18:13) Hives Iodinated Contrast Media [IV Dye, Iodine Containing] Adverse Reaction (Verified 09/24/19 18:13) Hives Penicillins Adverse Reaction (Verified 09/24/19 18:13) Hives Apricots Adverse Reaction (Mild, Uncoded 11/04/18 14:46) Hives Review of Systems Constitutional: ABSENT: chills, fever(s), headache(s), weight gain, weight loss Eyes: ABSENT: visual disturbances Ears: ABSENT: hearing changes Cardiovascular: PRESENT: dyspnea on exertion. ABSENT: chest pain, edema, orthropnea, palpitations Respiratory: PRESENT: cough, dyspnea. ABSENT: hemoptysis Gastrointestinal: ABSENT: abdominal pain, constipation, diarrhea, hematemesis, hematochezia, nausea, vomiting Genitourinary: ABSENT: dysuria, hematuria Musculoskeletal: ABSENT: joint swelling Integumentary: ABSENT: rash, wounds Neurological: ABSENT: abnormal gait, abnormal speech, confusion, dizziness, focal weakness, syncope Psychiatric: ABSENT: anxiety, depression, homidical ideation, suicidal ideation Endocrine: ABSENT: cold intolerance, heat intolerance, menstrual abnormalities, polydipsia, polyuria Hematologic/Lymphatic: ABSENT: easy bleeding, easy bruising, lymphadenopathy Physical Exam Vital Signs: Temp Pulse Resp BP Pulse Ox 98.3 F 78 20 88/42 L 92 11/05/19 08:00 11/05/19 08:00 11/05/19 08:00 11/05/19 08:00 11/05/19 08:00 Intake & Output 11/04/19 11/05/19 11/06/19 06:59 06:59 06:59 Intake Total 270 Output Total 600 Balance -330 Weight 101.2 kg Physical Exam: Currently on a BiPAP General appearance: PRESENT: mild distress, well-developed, well-nourished Head exam: PRESENT: atraumatic, normocephalic Eye exam: PRESENT: conjunctiva pink, EOMI, PERRLA. ABSENT: scleral icterus Ear exam: PRESENT: normal external ear exam Mouth exam: PRESENT: moist, tongue midline Neck exam: PRESENT: full ROM. ABSENT: carotid bruit, JVD, lymphadenopathy, thyromegaly Respiratory exam: PRESENT: decreased breath sounds Cardiovascular exam: PRESENT: RRR. ABSENT: diastolic murmur, rubs, systolic murmur Pulses: PRESENT: normal dorsalis pedis pul, +2 pedal pulses bilateral Vascular exam: PRESENT: normal capillary refill GI/Abdominal exam: PRESENT: normal bowel sounds, soft. ABSENT: distended, guarding, mass, organolmegaly, rebound, tenderness Rectal exam: PRESENT: deferred Extremities exam: ABSENT: pedal edema Neurological exam: PRESENT: alert, awake, oriented to person, oriented to place, oriented to time, oriented to situation, CN II-XII grossly intact. ABSENT: motor sensory deficit Psychiatric exam: PRESENT: appropriate affect, normal mood. ABSENT: homicidal ideation, suicidal ideation Skin exam: PRESENT: dry, intact, warm. ABSENT: cyanosis, rash Results Laboratory Results: 11/04/19 23:22 11/05/19 06:37 11/04/19 11/04/19 11/04/19 23:22 23:22 23:22 WBC 9.1 RBC 4.25 L Hgb 13.4 L Hct 39.8 MCV 94 MCH 31.5 MCHC 33.7 RDW 14.7 H Plt Count 160 Seg Neutrophils % 77.1 VBG pH Cancelled VBG pCO2 Cancelled VBG HCO3 Cancelled VBG Base Excess Cancelled Sodium 138.1 Potassium 5.2 H Chloride 103 Carbon Dioxide 25 Anion Gap 10 BUN 19 Creatinine 0.91 Est GFR ( Amer) > 60 Glucose 164 H Lactic Acid Calcium 9.4 Total Bilirubin 0.5 AST 21 Alkaline Phosphatase 106 Total Protein 6.7 Albumin 4.3 Urine Color Urine Appearance Urine pH Ur Specific [place] Urine Protein Urine Glucose (UA) Urine Ketones Urine Blood Urine RBC (Auto) 11/04/19 11/05/19 11/05/19 23:22 00:09 04:35 WBC RBC Hgb Hct MCV MCH MCHC RDW Plt Count Seg Neutrophils % VBG pH 7.29 L VBG pCO2 58.8 VBG HCO3 27.6 VBG Base Excess -0.1 Sodium Potassium Chloride Carbon Dioxide Anion Gap BUN Creatinine Est GFR ( Amer) Glucose Lactic Acid 0.9 Calcium Total Bilirubin AST Alkaline Phosphatase Total Protein Albumin Urine Color STRAW Urine Appearance CLEAR Urine pH 5.0 Ur Specific [place] 1.007 Urine Protein NEGATIVE Urine Glucose (UA) >=500 H Urine Ketones TRACE H Urine Blood NEGATIVE Urine RBC (Auto) 0 11/05/19 11/05/19 06:37 06:37 WBC RBC Hgb Hct MCV MCH MCHC RDW Plt Count Seg Neutrophils % VBG pH VBG pCO2 VBG HCO3 VBG Base Excess Sodium 138.2 Potassium 4.9 Chloride 99 Carbon Dioxide 27 Anion Gap 12 BUN 22 H Creatinine 0.92 Est GFR ( Amer) > 60 Glucose 198 H Lactic Acid 1.1 Calcium 9.7 Total Bilirubin AST Alkaline Phosphatase Total Protein Albumin Urine Color Urine Appearance Urine pH Ur Specific [place] Urine Protein Urine Glucose (UA) Urine Ketones Urine Blood Urine RBC (Auto) 11/04/19 11/04/19 23:22 23:22 Troponin I < 0.012 NT-Pro-B Natriuret Pep 120 Impressions: Chest X-Ray 11/04/19 22:48 IMPRESSION: Improvement in interstitial edema. Persistent bibasilar airspace opacities which may reflect a combination of layering effusion/atelectasis. Underlying pneumonia not excluded copyright 2011 [employer]- All Rights Reserved Chest CT 11/05/19 00:00 IMPRESSION: No pneumonia. Assessment & Plan - Diagnosis (1) Respiratory distress Is this a current diagnosis for this admission?: Yes Plan: Most likely most from the COPD acute exacerbations CT of the chest did not show any pneumonia Will cover with the BiPAP and cover with the p.o. Levaquin Consult the pulmonary repeat the ABG (2) Acute and chronic respiratory failure ([id number]) Qualifiers: Respiratory failure complication: hypoxia and hypercapnia Qualified Code(s): J96.21 - Acute and chronic respiratory failure with hypoxia; J96.22 - Acute and chronic respiratory failure with hypercapnia Is this a current diagnosis for this admission?: Yes Plan: Due to the noncompliance and a chronic smoker several hospital admissions so many discussions and the patient in the past with a chronic respiratory failure patient is currently using the BiPAP at home all the times but I think patient is very noncompliance on that one which leads the patient's multiple hospital admissions Will continues the MDI with patient and the isolations once patient's covid test if is negative we will start nebulizer treatments (3) COPD with acute exacerbation Is this a current diagnosis for this admission?: Yes Plan: Patient having multiple steroid admission in the outpatient is also will continues IV steroids continues the MDI (4) Diabetes mellitus type 2 in obese Is this a current diagnosis for this admission?: Yes Plan: Continues a sliding scales (5) Hypertension Qualifiers: Hypertension type: essential hypertension Is this a current diagnosis for this admission?: Yes Plan: Continues the current medications (6) Noncompliance Is this a current diagnosis for this admission?: Yes (7) Sleep apnea syndrome Qualifiers: Sleep apnea type: unspecified type Is this a current diagnosis for this admission?: Yes Plan: Chronic BiPAP (8) Tobacco abuse Is this a current diagnosis for this admission?: Yes Plan: Very extensive discussions with the patient's in the past and recently regarding the smoking counseling with the significant COPD respiratory failure patient have already but patients does not understand very well and very noncompliance - Time Time Spent: 50 to 70 Minutes Critical Time spent with patient: 15-24 minutes Medications reviewed and adjusted accordingly: Yes Anticipated discharge: Home with Homehealth Within: Other - Inpatient Certification Based on my medical assessment, after consideration of the patient's comorbidities, presenting symptoms, or acuity I expect that the services needed warrant INPATIENT care.: Yes I certify that my determination is in accordance with my understanding of Medicare's requirements for reasonable and necessary INPATIENT services [42 CFR 412.3e].: Yes Medical Necessity: Failure to Improve With Outpatient Therapy, Significant Comorbidiites Make Outpatient Treatment Too Risky, Need for Nebulizer Therapy and Monitoring of Response Post Hospital Care: D/C [facility] Manager Documentation - Plan Summary Plan Summary: Admit the patient in the IMCU due to the ongoing pandemic we will check the COVID testing Continues to supportive treatment for the respiratory Check the stool for C. difficile with recent episode of the diarrhea with the results multiple antibiotic use Continues to IV steroid Repeat the ABG Pulmonary consult Again patient is very noncompliance repeated hospitals admissions due to the c hronic respiratory failure COPD continues to smoker overall prognosis long-term is not good
[2019-11-05 08:57] LABS: ARTERIAL BLOOD BASE EXCESS 1.6 mmol/L; ARTERIAL BLOOD H2CO3 1.81 mmol/L (1.05-1.35); ARTERIAL BLOOD HCO3 29.4 mmol/L (20-24); ARTERIAL BLOOD O2 SATURATION 89.6 % (94-98); ARTERIAL BLOOD PCO2 60.2 mmHg (35-45); ARTERIAL BLOOD PH 7.31 (7.35-7.45); ARTERIAL BLOOD PO2 63.3 mmHg (80-100); ARTERIAL BLOOD TOTAL CO2 31.2 mmol/L (23-27)
[2019-11-05 08:58] LABS: ARTERIAL BLOOD FIO2 40
[2019-11-05] MEDS: FLUTICASONE/UMECLIDIN/VILANTER 100-62.5-25 MCG/DOSE IH SCH (09:38)
[2019-11-05] MEDS: FLUTICASONE NASAL SPRAY 50 MCG/SPRY 120 SPRAY/16 GM NASL SCH ×2 (09:38→21:09)
[2019-11-05] MEDS: TAMSULOSIN HCL 0.4 MG CAP.SR.24H PO SCH (09:39)
[2019-11-05] MEDS: LACTOBACILLUS ACIDOPHILUS 250 MG TAB PO SCH ×2 (09:39→17:00)
[2019-11-05] MEDS: DILTIAZEM HCL 120 MG CAP.SR.24H PO SCH (09:39)
[2019-11-05] MEDS: ATORVASTATIN CALCIUM 40 MG TABLET PO SCH (09:39)
[2019-11-05] MEDS: GABAPENTIN 100 MG CAPSULE PO SCH ×3 (09:39→17:00)
[2019-11-05] MEDS: METRONIDAZOLE 500 MG TABLET PO SCH ×2 (09:39→21:08)
[2019-11-05] MEDS: ASPIRIN 81 MG TABLET, ENT COATED PO SCH (09:39)
[2019-11-05] MEDS: ENOXAPARIN SODIUM INJ 40 MG/0.4 ML DISP.SYRIN SUBCUT SCH (09:40)
[2019-11-05] MEDS: FUROSEMIDE 20 MG TABLET PO SCH (09:41)
[2019-11-05] MEDS: LEVOFLOXACIN 500 MG TABLET PO SCH (09:41)
[2019-11-05] MEDS ORDERED: INSULIN GLARGINE,HUM.REC.ANLOG 1,000 UNIT/10 ML VIAL SUBCUT SCH (10:00)
[2019-11-05] MEDS ORDERED: INSULIN DETEMIR 65 UNIT SQ SCH (10:00)
[2019-11-05] MEDS ORDERED: (PENDING PHARMACY ID) (Diltiazem Hcl [Diltiazem 24hr Er] 120 MG) PO SCH (10:00)
[2019-11-05] MEDS ORDERED: (PENDING PHARMACY ID) (Sitagliptin Phos/Metformin Hcl [Janumet 50-500 Mg Tablet] 1 EACH) PO SCH (10:00)
[2019-11-05] MEDS ORDERED: (PENDING PHARMACY ID) (Empagliflozin [Jardiance] 10 MG) PO SCH (10:00)
[2019-11-05] MEDS: ALBUTEROL SULFATE HFA (90 MCG/PUFF) 8 GM MDI (1 MDI/ER DISP) IH PRN ×3 (11:35→21:18)
[2019-11-05] MEDS ORDERED: (PENDING PHARMACY ID) (Ipratropium/Albuterol Sulfate [Combivent Respimat 4 Gm Mdi] 1 PUFF) IH SCH (12:00)
[2019-11-05] MEDS: METHYLPREDNISOLONE INJ 125 MG/2 ML SDV IV SCH ×2 (13:11→21:08)
--- NOTE | 2019-11-05 14:41 | Progress Note ---
Provider Note Provider Note: Respiratory: This is a cannot use the BiPAP and isolations rooms Discussed with the petroleum inspector supervisor and he will evaluate the patient's in the respiratory call back and said that suggest the oxygen's Will await further testings result patient is definitely need BiPAP because of the chronic respiratory failure with hypercapnia we will repeat the ABG in the morning patient is currently comfortable discussed with the patient still unable to use any nebulizer treatment because of the isolations just only using the MDI
--- NOTE | 2019-11-05 16:10 | PDOC CRITICAL CARE PROG REPORT ---
General Date:: 11/05/19 Events in the past 12 to 24 Hours:: Hospitalized and a covid R/O. Review of systems relevant to events:: Respiratory Reason for ICU Addmission:: Evaluation for ICU placement - Medications: Medications reviewed and adjusted accordingly: Yes Vasopressors:: None Sedation:: None Physical Exam Vital Signs: Temp Pulse Resp BP Pulse Ox 97.6 F 92 19 108/55 L 95 11/05/19 11:16 11/05/19 11:16 11/05/19 11:16 11/05/19 11:16 11/05/19 11:16 Intake & Output 11/04/19 11/05/19 11/06/19 06:59 06:59 06:59 Intake Total 270 666 Output Total 600 425 Balance -330 241 Weight 101.2 kg Weight/Height Weight 101.2 kg Height 5 ft 4 in General appearance: PRESENT: no acute distress, cooperative, disheveled, obese Head exam: PRESENT: atraumatic, normocephalic Eye exam: PRESENT: conjunctiva pink, EOMI, PERRLA. ABSENT: scleral icterus Ear exam: PRESENT: normal external ear exam Mouth exam: PRESENT: moist, tongue midline Respiratory exam: PRESENT: symmetrical, unlabored Cardiovascular exam: PRESENT: RRR. ABSENT: diastolic murmur, rubs, systolic murmur GI/Abdominal exam: PRESENT: normal bowel sounds, soft. ABSENT: distended, guarding, mass, organolmegaly, rebound, tenderness Rectal exam: PRESENT: deferred Extremities exam: PRESENT: full ROM. ABSENT: calf tenderness, clubbing, pedal edema Neurological exam: PRESENT: alert, awake, oriented to person, oriented to place, oriented to time, oriented to situation, CN II-XII grossly intact. ABSENT: motor sensory deficit Psychiatric exam: PRESENT: appropriate affect, normal mood. ABSENT: homicidal ideation, suicidal ideation Skin exam: PRESENT: dry, intact, warm. ABSENT: cyanosis, rash Laboratory/Radiographs Laboratory Results: 11/04/19 23:22 11/05/19 06:37 11/04/19 11/04/19 11/04/19 23:22 23:22 23:22 WBC 9.1 RBC 4.25 L Hgb 13.4 L Hct 39.8 MCV 94 MCH 31.5 MCHC 33.7 RDW 14.7 H Plt Count 160 Seg Neutrophils % 77.1 Carbonic Acid HCO3/H2CO3 Ratio ABG pH ABG pCO2 ABG pO2 ABG HCO3 ABG O2 Saturation ABG Base Excess VBG pH Cancelled VBG pCO2 Cancelled VBG HCO3 Cancelled VBG Base Excess Cancelled FiO2 Sodium 138.1 Potassium 5.2 H Chloride 103 Carbon Dioxide 25 Anion Gap 10 BUN 19 Creatinine 0.91 Est GFR ( Amer) > 60 Glucose 164 H Lactic Acid Calcium 9.4 Total Bilirubin 0.5 AST 21 Alkaline Phosphatase 106 Total Protein 6.7 Albumin 4.3 Urine Color Urine Appearance Urine pH Ur Specific [place] Urine Protein Urine Glucose (UA) Urine Ketones Urine Blood Urine RBC (Auto) 11/04/19 11/05/19 11/05/19 23:22 00:09 04:35 WBC RBC Hgb Hct MCV MCH MCHC RDW Plt Count Seg Neutrophils % Carbonic Acid HCO3/H2CO3 Ratio ABG pH ABG pCO2 ABG pO2 ABG HCO3 ABG O2 Saturation ABG Base Excess VBG pH 7.29 L VBG pCO2 58.8 VBG HCO3 27.6 VBG Base Excess -0.1 FiO2 Sodium Potassium Chloride Carbon Dioxide Anion Gap BUN Creatinine Est GFR ( Amer) Glucose Lactic Acid 0.9 Calcium Total Bilirubin AST Alkaline Phosphatase Total Protein Albumin Urine Color STRAW Urine Appearance CLEAR Urine pH 5.0 Ur Specific [place] 1.007 Urine Protein NEGATIVE Urine Glucose (UA) >=500 H Urine Ketones TRACE H Urine Blood NEGATIVE Urine RBC (Auto) 0 11/05/19 11/05/19 11/05/19 06:37 06:37 08:32 WBC RBC Hgb Hct MCV MCH MCHC RDW Plt Count Seg Neutrophils % Carbonic Acid 1.81 H HCO3/H2CO3 Ratio 16:1 ABG pH 7.31 L ABG pCO2 60.2 H ABG pO2 63.3 L ABG HCO3 29.4 H ABG O2 Saturation 89.6 L ABG Base Excess 1.6 VBG pH VBG pCO2 VBG HCO3 VBG Base Excess FiO2 40 Sodium 138.2 Potassium 4.9 Chloride 99 Carbon Dioxide 27 Anion Gap 12 BUN 22 H Creatinine 0.92 Est GFR ( Amer) > 60 Glucose 198 H Lactic Acid 1.1 Calcium 9.7 Total Bilirubin AST Alkaline Phosphatase Total Protein Albumin Urine Color Urine Appearance Urine pH Ur Specific [place] Urine Protein Urine Glucose (UA) Urine Ketones Urine Blood Urine RBC (Auto) 11/04/19 11/04/19 23:22 23:22 Troponin I < 0.012 NT-Pro-B Natriuret Pep 120 Impressions: Chest X-Ray 11/04/19 22:48 IMPRESSION: Improvement in interstitial edema. Persistent bibasilar airspace opacities which may reflect a combination of layering effusion/atelectasis. Underlying pneumonia not excluded copyright 2011 [employer]- All Rights Reserved Chest CT 11/05/19 00:00 IMPRESSION: No pneumonia. EKG: ST R-axis. All labs, radiographs, diagnostic studies and EKGs were personally reviewed: Yes In addition, reports of radiographic and diagnostic studies were read: Yes Assessment and Plan - Diagnosis (1) COPD exacerbation Is this a current diagnosis for this admission?: Yes Plan: This seems to be his main problem. He uses 4.5-5 L of oxygen at home. There O2 saturations of 88-92% are fine as long as he has no symptoms, such as tachypne, distress, confusion and so forth. I would not bring him to the ICU at this point. I would continue treatment for COPD, albuterol, steroids, antibiotics. (2) COVID-19 Is this a current diagnosis for this admission?: No Plan: He has had no Covid positive contacts, he has no fever, WBC count, chest CT is clean. I doubt seriously he is covid positive. If test returns negative get him off the covid floor as he will be more at risk. (3) Type 2 diabetes mellitus Qualifiers: Diabetes mellitus residential insulin use: with residential use Diabetes mellitus complication status: with unspecified complications Is this a current diagnosis for this admission?: Yes Plan: Controlled Critical Time Critical Time (minutes): 35 Level of Care: IMCU Anticipated discharge: Home Within: Other -: 1. The care of a critical patient is a dynamic process. This note is a policy services representative synopsis but static in nature. The timeframe for treatments given in order is not necessarily the actual time these treatments may have been done. 2. This patient requires critical care secondary to ongoing requirements for therapy not offered or safe outside the critical care environment. Transfer to a lower level of care will result in altered life or limb morbidity and mortality. 3. Multidisciplinary rounds completed. 4. ABCDE bundle addressed.
[2019-11-05] MEDS: INSULIN GLARGINE,HUM.REC.ANLOG 1,000 UNIT/10 ML VIAL SUBCUT SCH (22:00)
[2019-11-06] MEDS: IPRATROPIUM/ALBUTEROL 0.5-2.5 MG/3 ML AMPUL NEB SCH ×4 (01:01→19:53)
[2019-11-06] MEDS: METHYLPREDNISOLONE INJ 125 MG/2 ML SDV IV SCH ×3 (05:11→21:19)
[2019-11-06] MEDS: ALBUTEROL SULFATE HFA (90 MCG/PUFF) 8 GM MDI (1 MDI/ER DISP) IH PRN (05:12)
[2019-11-06] MEDS: PANTOPRAZOLE SODIUM 20 MG TABLET.DR PO SCH (05:12)
[2019-11-06 05:49] LABS: ARTERIAL BLOOD BASE EXCESS 0.1 mmol/L; ARTERIAL BLOOD H2CO3 1.58 mmol/L (1.05-1.35); ARTERIAL BLOOD HCO3 26.9 mmol/L (20-24); ARTERIAL BLOOD PCO2 52.5 mmHg (35-45); ARTERIAL BLOOD PH 7.33 (7.35-7.45); ARTERIAL BLOOD PO2 50.9 mmHg (80-100); ARTERIAL BLOOD TOTAL CO2 28.5 mmol/L (23-27)
[2019-11-06 05:51] LABS: ARTERIAL BLOOD FIO2 6L
[2019-11-06 05:57] LABS: ABSOLUTE LYMPHOCYTES (AUTO) 0.6 10^3/uL (0.5-4.7); ABSOLUTE MONOCYTES (AUTO) 0.1 10^3/uL (0.1-1.4); ABSOLUTE NEUT (AUTO) 7.7 10^3/uL (1.7-8.2); BASOPHILS % (AUTO) 0.4 % (0-2); HEMATOCRIT 37.6 % (37.9-51.0); HEMOGLOBIN 12.8 g/dL (13.5-17.0); LYMPHOCYTES % (AUTO) 7.4 % (13-45); MEAN CORPUSCULAR HEMOGLOBIN 30.8 pg (27.0-33.4); MONOCYTES % (AUTO) 1.5 % (3-13); PLATELET COUNT 162 10^3/uL (150-450); RED BLOOD COUNT 4.15 10^6/uL (4.35-5.55); RED CELL DISTRIBUTION WIDTH 14.6 % (11.5-14.0); SEGMENTED NEUTROPHILS % (AUTO) 90.7 % (42-78); TOTAL CELLS COUNTED % (AUTO) 100 %; WHITE BLOOD COUNT 8.5 10^3/uL (4.0-10.5)
[2019-11-06 05:58] LABS: MEAN CORPUSCULAR VOLUME 91 fl (80-97)
[2019-11-06 06:10] LABS: ANION GAP 9 (5-19); BLOOD UREA NITROGEN 34 mg/dL (7-20); CALCIUM 8.6 mg/dL (8.4-10.2); CARBON DIOXIDE 27 mmol/L (22-30); CHLORIDE 98 mmol/L (98-107); GLUCOSE 272 mg/dL (75-110); POTASSIUM 4.6 mmol/L (3.6-5.0)
[2019-11-06] MEDS: INSULIN LISPRO 100 UNIT/ML 3 ML VIAL SUBCUT SCH ×7 (08:04→21:29)
[2019-11-06] MEDS: METFORMIN HCL 500 MG TABLET PO SCH ×2 (08:06→17:00)
[2019-11-06] MEDS: SITAGLIPTIN PHOSPHATE 50 MG TABLET PO SCH ×2 (08:06→17:00)
[2019-11-06] MEDS: ENOXAPARIN SODIUM INJ 40 MG/0.4 ML DISP.SYRIN SUBCUT SCH (09:13)
[2019-11-06] MEDS: LACTOBACILLUS ACIDOPHILUS 250 MG TAB PO SCH ×2 (09:14→17:00)
[2019-11-06] MEDS: FUROSEMIDE 20 MG TABLET PO SCH (09:14)
[2019-11-06] MEDS: METRONIDAZOLE 500 MG TABLET PO SCH ×2 (09:14→21:20)
[2019-11-06] MEDS: DILTIAZEM HCL 120 MG CAP.SR.24H PO SCH (09:14)
[2019-11-06] MEDS: LEVOFLOXACIN 500 MG TABLET PO SCH (09:14)
[2019-11-06] MEDS: TAMSULOSIN HCL 0.4 MG CAP.SR.24H PO SCH (09:14)
[2019-11-06] MEDS: ATORVASTATIN CALCIUM 40 MG TABLET PO SCH (09:14)
[2019-11-06] MEDS: GABAPENTIN 100 MG CAPSULE PO SCH ×3 (09:15→17:03)
[2019-11-06] MEDS: ASPIRIN 81 MG TABLET, ENT COATED PO SCH (09:15)
[2019-11-06] MEDS: FLUTICASONE/UMECLIDIN/VILANTER 100-62.5-25 MCG/DOSE IH SCH (09:16)
[2019-11-06] MEDS: FLUTICASONE NASAL SPRAY 50 MCG/SPRY 120 SPRAY/16 GM NASL SCH ×2 (09:17→21:20)
[2019-11-06] MEDS: INSULIN GLARGINE,HUM.REC.ANLOG 1,000 UNIT/10 ML VIAL SUBCUT SCH ×2 (09:32→21:19)
--- NOTE | 2019-11-06 14:16 | PDOC PROGRESS REPORT ---
Subjective Progress Note for:: 11/06/19 Subjective:: Patient is currently doing well Patient ABG is all stable Patient's denied any chest pain no short of breath Patient is COVID test is still pending Reason For Visit: COPD ACUTE Physical Exam Vital Signs: Temp Pulse Resp BP Pulse Ox 98.2 F 70 18 108/53 L 96 11/06/19 11:41 11/06/19 14:00 11/06/19 11:41 11/06/19 11:41 11/06/19 11:41 Intake & Output 11/05/19 11/06/19 11/07/19 06:59 06:59 06:59 Intake Total 270 2076 400 Output Total 600 1975 600 Balance -330 101 -200 Weight 101.2 kg 94.8 kg General appearance: PRESENT: no acute distress, well-developed, well-nourished Head exam: PRESENT: atraumatic, normocephalic Eye exam: PRESENT: conjunctiva pink, EOMI, PERRLA. ABSENT: scleral icterus Ear exam: PRESENT: normal external ear exam Mouth exam: PRESENT: moist, tongue midline Neck exam: PRESENT: full ROM. ABSENT: carotid bruit, JVD, lymphadenopathy, thyromegaly Cardiovascular exam: PRESENT: RRR. ABSENT: diastolic murmur, rubs, systolic murmur Vascular exam: PRESENT: normal capillary refill GI/Abdominal exam: PRESENT: normal bowel sounds, soft. ABSENT: distended, guarding, mass, organolmegaly, rebound, tenderness Rectal exam: PRESENT: deferred Neurological exam: PRESENT: alert, awake, oriented to person, oriented to place. ABSENT: motor sensory deficit Psychiatric exam: PRESENT: appropriate affect, normal mood. ABSENT: homicidal ideation, suicidal ideation Skin exam: PRESENT: dry, intact, warm. ABSENT: cyanosis, rash Results Laboratory Results: 11/06/19 05:40 11/06/19 05:40 11/06/19 11/06/19 11/06/19 05:08 05:40 05:40 WBC 8.5 RBC 4.15 L Hgb 12.8 L Hct 37.6 L MCV 91 MCH 30.8 MCHC 34.0 RDW 14.6 H Plt Count 162 Seg Neutrophils % 90.7 H Carbonic Acid 1.58 H HCO3/H2CO3 Ratio 17:1 ABG pH 7.33 L ABG pCO2 52.5 H ABG pO2 50.9 L ABG HCO3 26.9 H ABG O2 Saturation 83.0 L ABG Base Excess 0.1 FiO2 6L Sodium 133.7 L Potassium 4.6 Chloride 98 Carbon Dioxide 27 Anion Gap 9 BUN 34 H Creatinine 0.98 Est GFR ( Amer) > 60 Glucose 272 H Calcium 8.6 11/04/19 11/04/19 23:22 23:22 Troponin I < 0.012 NT-Pro-B Natriuret Pep 120 Impressions: Chest X-Ray 11/04/19 22:48 IMPRESSION: Improvement in interstitial edema. Persistent bibasilar airspace opacities which may reflect a combination of layering effusion/atelectasis. Underlying pneumonia not excluded copyright 2011 [employer]- All Rights Reserved Chest CT 11/05/19 00:00 IMPRESSION: No pneumonia. Assessment & Plan - Diagnosis (1) Respiratory distress Is this a current diagnosis for this admission?: Yes (2) Acute and chronic respiratory failure ([id number]) Qualifiers: Respiratory failure complication: hypoxia and hypercapnia Qualified Code(s): J96.21 - Acute and chronic respiratory failure with hypoxia; J96.22 - Acute and chronic respiratory failure with hypercapnia Is this a current diagnosis for this admission?: Yes (3) COPD with acute exacerbation Is this a current diagnosis for this admission?: Yes (4) Diabetes mellitus type 2 in obese Is this a current diagnosis for this admission?: Yes (5) Hypertension Qualifiers: Hypertension type: essential hypertension Is this a current diagnosis for this admission?: Yes (6) Noncompliance Is this a current diagnosis for this admission?: Yes (7) Sleep apnea syndrome Qualifiers: Sleep apnea type: unspecified type Is this a current diagnosis for this admission?: Yes (8) Tobacco abuse Is this a current diagnosis for this admission?: Yes - Time Time Spent with patient: 15-24 minutes Level of Care: IMCU Medications reviewed and adjusted accordingly: Yes Anticipated discharge: Other Within: Other - Plan Summary Plan Summary: Continues the current medications
[2019-11-07] MEDS: IPRATROPIUM/ALBUTEROL 0.5-2.5 MG/3 ML AMPUL NEB SCH ×3 (02:18→20:02)
[2019-11-07 05:28] LABS: ARTERIAL BLOOD BASE EXCESS 0 mmol/L; ARTERIAL BLOOD HCO3 26.4 mmol/L (20-24); ARTERIAL BLOOD O2 SATURATION 92.5 % (94-98); ARTERIAL BLOOD PCO2 49.9 mmHg (35-45); ARTERIAL BLOOD PH 7.34 (7.35-7.45); ARTERIAL BLOOD PO2 68.5 mmHg (80-100); ARTERIAL BLOOD TOTAL CO2 27.9 mmol/L (23-27)
[2019-11-07] MEDS: PANTOPRAZOLE SODIUM 20 MG TABLET.DR PO SCH (05:30)
[2019-11-07] MEDS: METHYLPREDNISOLONE INJ 125 MG/2 ML SDV IV SCH (05:30)
[2019-11-07 05:31] LABS: ABSOLUTE LYMPHOCYTES (AUTO) 0.7 10^3/uL (0.5-4.7); ABSOLUTE MONOCYTES (AUTO) 0.4 10^3/uL (0.1-1.4); ABSOLUTE NEUT (AUTO) 10.9 10^3/uL (1.7-8.2); BASOPHILS % (AUTO) 0.3 % (0-2); HEMATOCRIT 36.6 % (37.9-51.0); HEMOGLOBIN 12.5 g/dL (13.5-17.0); LYMPHOCYTES % (AUTO) 5.5 % (13-45); MEAN CORPUSCULAR HGB CONC 34.2 g/dL (32.0-36.0); MEAN CORPUSCULAR VOLUME 91 fl (80-97); PLATELET COUNT 175 10^3/uL (150-450); RED BLOOD COUNT 4.03 10^6/uL (4.35-5.55); RED CELL DISTRIBUTION WIDTH 14.5 % (11.5-14.0); SEGMENTED NEUTROPHILS % (AUTO) 91.2 % (42-78); TOTAL CELLS COUNTED % (AUTO) 100 %; WHITE BLOOD COUNT 11.9 10^3/uL (4.0-10.5)
[2019-11-07 05:31] LABS: ARTERIAL BLOOD FIO2 6L
[2019-11-07 05:49] LABS: ANION GAP 9 (5-19); BLOOD UREA NITROGEN 45 mg/dL (7-20); CALCIUM 8.8 mg/dL (8.4-10.2); CARBON DIOXIDE 26 mmol/L (22-30); CHLORIDE 101 mmol/L (98-107); GLUCOSE 174 mg/dL (75-110); POTASSIUM 4.9 mmol/L (3.6-5.0)
[2019-11-07] MEDS: SITAGLIPTIN PHOSPHATE 50 MG TABLET PO SCH ×2 (07:54→17:17)
[2019-11-07] MEDS: INSULIN LISPRO 100 UNIT/ML 3 ML VIAL SUBCUT SCH ×7 (07:54→22:19)
[2019-11-07] MEDS: METFORMIN HCL 500 MG TABLET PO SCH ×2 (07:54→17:17)
[2019-11-07] MEDS: FUROSEMIDE 20 MG TABLET PO SCH (09:12)
[2019-11-07] MEDS: ENOXAPARIN SODIUM INJ 40 MG/0.4 ML DISP.SYRIN SUBCUT SCH (09:12)
[2019-11-07] MEDS: LACTOBACILLUS ACIDOPHILUS 250 MG TAB PO SCH ×2 (09:12→17:16)
[2019-11-07] MEDS: ATORVASTATIN CALCIUM 40 MG TABLET PO SCH (09:12)
[2019-11-07] MEDS: METRONIDAZOLE 500 MG TABLET PO SCH ×2 (09:12→22:18)
[2019-11-07] MEDS: ASPIRIN 81 MG TABLET, ENT COATED PO SCH (09:12)
[2019-11-07] MEDS: TAMSULOSIN HCL 0.4 MG CAP.SR.24H PO SCH (09:12)
[2019-11-07] MEDS: LEVOFLOXACIN 500 MG TABLET PO SCH (09:12)
[2019-11-07] MEDS: GABAPENTIN 100 MG CAPSULE PO SCH ×3 (09:12→17:17)
[2019-11-07] MEDS: DILTIAZEM HCL 120 MG CAP.SR.24H PO SCH ×2 (09:12→09:53)
[2019-11-07] MEDS: INSULIN GLARGINE,HUM.REC.ANLOG 1,000 UNIT/10 ML VIAL SUBCUT SCH ×2 (09:13→22:19)
[2019-11-07] MEDS: FLUTICASONE NASAL SPRAY 50 MCG/SPRY 120 SPRAY/16 GM NASL SCH ×2 (09:13→22:19)
[2019-11-07] MEDS: FLUTICASONE/UMECLIDIN/VILANTER 100-62.5-25 MCG/DOSE IH SCH (09:14)
--- NOTE | 2019-11-07 10:25 | PDOC PROGRESS REPORT ---
Subjective Progress Note for:: 11/07/19 Subjective:: Patient is currently doing well Patient ABG is all stable Patient's denied any chest pain no short of breath Patient is COVID test is still pending Reason For Visit: COPD ACUTE Physical Exam Vital Signs: Temp Pulse Resp BP Pulse Ox 97.6 F 72 22 H 107/59 L 99 11/07/19 07:46 11/07/19 07:46 11/07/19 07:46 11/07/19 07:46 11/07/19 07:46 Intake & Output 11/06/19 11/07/19 11/08/19 06:59 06:59 06:59 Intake Total 2075 1550 Output Total 1974 1825 Balance 101 -275 Weight 94.8 kg 93.9 kg General appearance: PRESENT: no acute distress, well-developed, well-nourished Head exam: PRESENT: atraumatic, normocephalic Eye exam: PRESENT: conjunctiva pink, EOMI, PERRLA. ABSENT: scleral icterus Ear exam: PRESENT: normal external ear exam Mouth exam: PRESENT: moist, tongue midline Neck exam: PRESENT: full ROM. ABSENT: carotid bruit, JVD, lymphadenopathy, thyromegaly Cardiovascular exam: PRESENT: RRR. ABSENT: diastolic murmur, rubs, systolic murmur Pulses: PRESENT: normal dorsalis pedis pul, +2 pedal pulses bilateral Vascular exam: PRESENT: normal capillary refill GI/Abdominal exam: PRESENT: normal bowel sounds, soft. ABSENT: distended, guarding, mass, organolmegaly, rebound, tenderness Rectal exam: PRESENT: deferred Neurological exam: PRESENT: alert, awake, oriented to person, oriented to place, oriented to time, oriented to situation, CN II-XII grossly intact. ABSENT: motor sensory deficit Psychiatric exam: PRESENT: appropriate affect, normal mood. ABSENT: homicidal ideation, suicidal ideation Skin exam: PRESENT: dry, intact, warm. ABSENT: cyanosis, rash Results Laboratory Results: 11/07/19 04:50 11/07/19 04:50 11/07/19 11/07/19 11/07/19 04:50 04:50 05:10 WBC 11.9 H RBC 4.03 L Hgb 12.5 L Hct 36.6 L MCV 91 MCH 31.0 MCHC 34.2 RDW 14.5 H Plt Count 175 Seg Neutrophils % 91.2 H Carbonic Acid 1.50 H HCO3/H2CO3 Ratio 17:1 ABG pH 7.34 L ABG pCO2 49.9 H ABG pO2 68.5 L ABG HCO3 26.4 H ABG O2 Saturation 92.5 L ABG Base Excess 0 FiO2 6L Sodium 136.1 L Potassium 4.9 Chloride 101 Carbon Dioxide 26 Anion Gap 9 BUN 45 H Creatinine 1.27 H Est GFR ( Amer) > 60 Glucose 174 H Calcium 8.8 11/04/19 11/04/19 23:22 23:22 Troponin I < 0.012 NT-Pro-B Natriuret Pep 120 Impressions: Chest X-Ray 11/04/19 22:48 IMPRESSION: Improvement in interstitial edema. Persistent bibasilar airspace opacities which may reflect a combination of layering effusion/atelectasis. Underlying pneumonia not excluded copyright 2011 [employer]- All Rights Reserved Chest CT 11/05/19 00:00 IMPRESSION: No pneumonia. Assessment & Plan - Diagnosis (1) Respiratory distress Is this a current diagnosis for this admission?: Yes (2) Acute and chronic respiratory failure ([id number]) Qualifiers: Respiratory failure complication: hypoxia and hypercapnia Qualified Code(s): J96.21 - Acute and chronic respiratory failure with hypoxia; J96.22 - Acute and chronic respiratory failure with hypercapnia Is this a current diagnosis for this admission?: Yes (3) COPD with acute exacerbation Is this a current diagnosis for this admission?: Yes (4) Diabetes mellitus type 2 in obese Is this a current diagnosis for this admission?: Yes (5) Hypertension Qualifiers: Hypertension type: essential hypertension Is this a current diagnosis for this admission?: Yes (6) Noncompliance Is this a current diagnosis for this admission?: Yes (7) Sleep apnea syndrome Qualifiers: Sleep apnea type: unspecified type Is this a current diagnosis for this admission?: Yes (8) Tobacco abuse Is this a current diagnosis for this admission?: Yes - Time Time Spent with patient: 15-24 minutes Level of Care: IMCU Medications reviewed and adjusted accordingly: Yes Anticipated discharge: Home Within: Other - Plan Summary Plan Summary: Reduce the IV steroids
[2019-11-07] MEDS ORDERED: DILTIAZEM HCL 30 MG TABLET PO SCH (10:30)
[2019-11-07] MEDS: DILTIAZEM HCL 30 MG TABLET PO SCH ×2 (11:51→22:18)
[2019-11-07] MEDS: METHYLPREDNISOLONE INJ 40 MG/1 ML SDV IV SCH ×2 (13:05→22:18)
[2019-11-07] MEDS ORDERED: METHYLPREDNISOLONE INJ 125 MG/2 ML SDV IV SCH (14:00)
[2019-11-08] MEDS: IPRATROPIUM/ALBUTEROL 0.5-2.5 MG/3 ML AMPUL NEB SCH ×2 (02:33→08:15)
[2019-11-08 05:47] LABS: ANION GAP 6 (5-19); BLOOD UREA NITROGEN 47 mg/dL (7-20); CALCIUM 8.6 mg/dL (8.4-10.2); CARBON DIOXIDE 26 mmol/L (22-30); CHLORIDE 103 mmol/L (98-107); GLUCOSE 136 mg/dL (75-110); POTASSIUM 4.4 mmol/L (3.6-5.0)
[2019-11-08 06:04] LABS: HEMATOCRIT 36.8 % (37.9-51.0); HEMOGLOBIN 12.5 g/dL (13.5-17.0); MEAN CORPUSCULAR HEMOGLOBIN 30.5 pg (27.0-33.4); MEAN CORPUSCULAR HGB CONC 34.1 g/dL (32.0-36.0); MEAN CORPUSCULAR VOLUME 90 fl (80-97); RED BLOOD COUNT 4.11 10^6/uL (4.35-5.55); RED CELL DISTRIBUTION WIDTH 14.7 % (11.5-14.0); WHITE BLOOD COUNT 11.3 10^3/uL (4.0-10.5)
[2019-11-08 06:18] LABS: PLATELET COUNT 125 10^3/uL (150-450)
[2019-11-08 06:22] LABS: ABSOLUTE LYMPHOCYTES# (MANUAL) 0.7 10^3/uL (0.5-4.7); ABSOLUTE MONOCYTES # (MANUAL) 0.3 10^3/uL (0.1-1.4); ANISOCYTOSIS SLIGHT; BASOPHILS % (MANUAL) 0 % (0-2); EOSINOPHILS % (MANUAL) 0 % (0-6); LYMPHOCYTES % (MANUAL) 5 % (13-45); MONOCYTES % (MANUAL) 3 % (3-13); PLATELET CLUMPS PRESENT; PLATELET COMMENT ADEQUATE; SEGMENTED NEUTROPHILS % (MAN) 91 % (42-78); TOTAL CELLS COUNTED 100; TOXIC GRANULATION SLIGHT; TOXIC VACUOLATION PRESENT
[2019-11-08] MEDS: PANTOPRAZOLE SODIUM 20 MG TABLET.DR PO SCH (06:36)
[2019-11-08] MEDS: METHYLPREDNISOLONE INJ 40 MG/1 ML SDV IV SCH (06:37)
[2019-11-08 08:23] VITALS: BP 100/44
--- NOTE | 2019-11-08 09:07 | PDOC DISCHARGE SUMMARY ---
Impression - Admit/DC Date/PCP Admission Date/Primary Care Provider: 11/05/19 01:07 ARTEMIO KAMINSKI MD Discharge Date: 11/08/19 - Discharge Diagnosis (1) Respiratory distress Is this a current diagnosis for this admission?: Yes (2) Acute and chronic respiratory failure ([id number]) Is this a current diagnosis for this admission?: Yes (3) COPD with acute exacerbation Is this a current diagnosis for this admission?: Yes (4) Diabetes mellitus type 2 in obese Is this a current diagnosis for this admission?: Yes (5) Hypertension Is this a current diagnosis for this admission?: Yes (6) Noncompliance Is this a current diagnosis for this admission?: Yes (7) Sleep apnea syndrome Is this a current diagnosis for this admission?: Yes (8) Tobacco abuse Is this a current diagnosis for this admission?: Yes - Additional Information Discharge Diet: Diabetic Discharge Activity: Activity As Tolerated Referrals: ARTEMIO KAMINSKI MD [Primary Care Provider] - 11/25/19 9:30 am Prescriptions: Lactobacillus Acidophilus [Bacid 250 mg Tablet] 250 mg PO BID #20 tab Prednisone [Deltasone 20 mg Tablet] 20 mg PO BID #10 tablet Doxycycline Hyclate 100 mg PO BID #14 tablet.dr Home Medications: Aspirin [Adult Low Dose Aspirin EC] 81 mg PO DAILY 06/25/19 Atorvastatin Calcium [Lipitor 40 mg Tablet] 40 mg PO QHS 06/25/19 Diltiazem HCl [Diltiazem 24Hr ER] 120 mg PO DAILY 06/25/19 Empagliflozin [Jardiance] 10 mg PO DAILY 06/25/19 Fluticasone Propionate [Flonase Nasal [place] 50 Mcg/[place] 16 gm] 1 spray NASL Q12HP PRN 06/25/19 Furosemide [Lasix 20 mg Tablet] 10 mg PO DAILY 06/25/19 Gabapentin [Neurontin 100 mg Capsule] 100 mg PO Q8 06/25/19 Insulin Aspart [Novolog Flexpen] 0 unit SQ .SLIDING SCALE 06/25/19 Ipratropium/Albuterol Sulfate [Combivent Respimat 4 gm Mdi] 1 puff IH QID 06/25/19 Lisinopril [Zestril] 2.5 mg PO DAILY 06/25/19 Sitagliptin Phos/Metformin HCl [Janumet 50-500 mg Tablet] 1 each PO BIDBS 06/25/19 Tamsulosin HCl [Flomax] 0.4 mg PO DAILY 06/25/19 Albuterol Sulfate [Ventolin Hfa 8 gm Mdi (1 Mdi/ER Disp)] 2 puff IH Q4HP PRN 11/05/19 Doxycycline Hyclate 100 mg PO BID #14 tablet. 11/08/19 Insulin Detemir [Levemir] 65 unit SQ Q12 #60 11/08/19 Lactobacillus Acidophilus [Bacid 250 mg Tablet] 250 mg PO BID #20 tab 11/08/19 Prednisone [Deltasone 20 mg Tablet] 20 mg PO BID #10 tablet 11/08/19 History of Present Illiness History of Present Illness: ADÁN CHEUNG is a 53 year old male Patient is a 53-year-old male with a chronic respiratory failure currently on a BiPAP at home's history of the COPD history of the type 2 diabetesAnd the multiple hospital admissions intubated and noncompliance in a chronic smoker basically came to the emergency department with a difficulty in breathing on the BiPAP in the emergency department initial work-up of blood is all stable and patient at this point admitting in the hospital for further evaluations with respiratory failure and COPD Due to the ongoing pandemic will do the COVID testings but patient does not have any contact with any COVID Patient's CT of the chest is negative for any pneumonia Patient is recently called in office with complaining of her diarrhea recently was on antibiotic and put on a Flagyl due to possible C. difficile patient is currently denied any abdominal pain no diarrhea Patient is currently doing fair Denied any chest pain currently on a BiPAP seen on the bedside in the fifth floor and isolations Patient unable to get the breathing treatment due to the isolations currently be given Combivent and albuterol MDI Patient's denied any fever no chills Hospital Course Hospital Course: This is a 53-year-old male with a chronic respiratory failure COPD chronic smoker noncompliance admitting in the hospital for the COPD acute exacerbation and acute respiratory failure Patient's because of the ongoing pandemic COVID test was done and was negative Patient is giving IV steroids antibiotics and MDI and then switched to the nebulizer and patient is currently doing very well Patient switched to the p.o. steroids p.o. antibiotics Since denied any diarrhea denied any abdominal pain Is back to the baseline's Oxygen and patient to use the BiPAP at home Patient's wants to go home Continues the current medications Physical Exam Vital Signs: Temp Pulse Resp BP Pulse Ox 97.3 F 83 18 100/44 L 92 11/08/19 07:27 11/08/19 08:19 11/08/19 08:19 11/08/19 07:27 11/08/19 08:19 Intake & Output 11/07/19 11/08/19 11/09/19 06:59 06:59 06:59 Intake Total 1550 1460 Output Total 1825 1125 Balance -275 335 Weight 93.9 kg General appearance: PRESENT: no acute distress, well-developed, well-nourished Head exam: PRESENT: atraumatic, normocephalic Eye exam: PRESENT: conjunctiva pink, EOMI, PERRLA. ABSENT: scleral icterus Ear exam: PRESENT: normal external ear exam Mouth exam: PRESENT: moist, tongue midline Neck exam: ABSENT: carotid bruit, JVD, lymphadenopathy, thyromegaly Respiratory exam: PRESENT: clear to auscultation allyson. ABSENT: rales, rhonchi, wheezes Cardiovascular exam: PRESENT: RRR. ABSENT: diastolic murmur, rubs, systolic murmur Pulses: PRESENT: normal dorsalis pedis pul Vascular exam: PRESENT: normal capillary refill GI/Abdominal exam: PRESENT: normal bowel sounds, soft. ABSENT: distended, guarding, mass, organolmegaly, rebound, tenderness Rectal exam: PRESENT: deferred Extremities exam: PRESENT: full ROM. ABSENT: calf tenderness, clubbing, pedal edema Musculoskeletal exam: PRESENT: ambulatory Neurological exam: PRESENT: alert, awake, oriented to person, oriented to place, oriented to time, oriented to situation, CN II-XII grossly intact. ABSENT: motor sensory deficit Psychiatric exam: PRESENT: appropriate affect, normal mood. ABSENT: homicidal ideation, suicidal ideation Skin exam: PRESENT: dry, intact, warm. ABSENT: cyanosis, rash Results Laboratory Results: WBC 11.3 10^3/uL (4.0-10.5) H 11/08/19 04:38 RBC 4.11 10^6/uL (4.35-5.55) L 11/08/19 04:38 Hgb 12.5 g/dL (13.5-17.0) L 11/08/19 04:38 Hct 36.8 % (37.9-51.0) L 11/08/19 04:38 MCV 90 fl (80-97) 11/08/19 04:38 MCH 30.5 pg (27.0-33.4) 11/08/19 04:38 MCHC 34.1 g/dL (32.0-36.0) 11/08/19 04:38 RDW 14.7 % (11.5-14.0) H 11/08/19 04:38 Plt Count 125 10^3/uL (150-450) L 11/08/19 04:38 Lymph % (Auto) Not Reportable 11/08/19 04:38 [place] % (Auto) Not Reportable 11/08/19 04:38 Eos % (Auto) Not Reportable 11/08/19 04:38 Baso % (Auto) Not Reportable 11/08/19 04:38 Absolute Neuts (auto) Not Reportable 11/08/19 04:38 Absolute Lymphs (auto) Not Reportable 11/08/19 04:38 Absolute Monos (auto) Not Reportable 11/08/19 04:38 Absolute Eos (auto) Not Reportable 11/08/19 04:38 Absolute Basos (auto) Not Reportable 11/08/19 04:38 Total Counted 100 11/08/19 04:38 Seg Neutrophils % Not Reportable 11/08/19 04:38 Seg Neuts % (Manual) 91 % (42-78) H 11/08/19 04:38 Lymphocytes % (Manual) 5 % (13-45) L 11/08/19 04:38 Atypical Lymphs % 1 % (0) 11/08/19 04:38 Monocytes % (Manual) 3 % (3-13) 11/08/19 04:38 Eosinophils % (Manual) 0 % (0-6) 11/08/19 04:38 Basophils % (Manual) 0 % (0-2) 11/08/19 04:38 Abs Neuts (Manual) 10.3 10^3/uL (1.7-8.2) H 11/08/19 04:38 Abs Lymphs (Manual) 0.7 10^3/uL (0.5-4.7) 11/08/19 04:38 Abs Monocytes (Manual) 0.3 10^3/uL (0.1-1.4) 11/08/19 04:38 Absolute Eos (Manual) 0.0 10^3/uL (0.0-0.6) 11/08/19 04:38 Abs Basophils (Manual) 0.0 10^3/uL (0.0-0.2) 11/08/19 04:38 Toxic Granulation SLIGHT 11/08/19 04:38 Toxic Vacuolation PRESENT 11/08/19 04:38 Clumped Platelets PRESENT 11/08/19 04:38 Platelet Comment ADEQUATE 11/08/19 04:38 Anisocytosis SLIGHT 11/08/19 04:38 PT 12.9 SEC (11.4-15.4) 11/04/19 23:22 INR 0.97 11/04/19 23:22 Carbonic Acid 1.50 mmol/L (1.05-1.35) H 11/07/19 05:10 HCO3/H2CO3 Ratio 17:1 11/07/19 05:10 ABG pH 7.34 (7.35-7.45) L 11/07/19 05:10 ABG pCO2 49.9 mmHg (35-45) H 11/07/19 05:10 ABG pO2 68.5 mmHg (80-100) L 11/07/19 05:10 ABG HCO3 26.4 mmol/L (20-24) H 11/07/19 05:10 ABG Total CO2 27.9 mmol/L (23-27) H 11/07/19 05:10 ABG O2 Saturation 92.5 % (94-98) L 11/07/19 05:10 ABG Base Excess 0 mmol/L 11/07/19 05:10 VBG pH 7.29 (7.30-7.42) L 11/05/19 00:09 VBG pCO2 58.8 mmHg (35-63) 11/05/19 00:09 VBG HCO3 27.6 mmol/L (20-32) 11/05/19 00:09 VBG Base Excess -0.1 mmol/L 11/05/19 00:09 FiO2 6L 11/07/19 05:10 Sodium 135.3 mmol/L (137-145) L 11/08/19 04:38 Potassium 4.4 mmol/L (3.6-5.0) 11/08/19 04:38 Chloride 103 mmol/L (98-107) 11/08/19 04:38 Carbon Dioxide 26 mmol/L (22-30) 11/08/19 04:38 Anion Gap 6 (5-19) 11/08/19 04:38 BUN 47 mg/dL (7-20) H 11/08/19 04:38 Creatinine 1.13 mg/dL (0.52-1.25) 11/08/19 04:38 Est GFR ( Amer) > 60 (>60) 11/08/19 04:38 Est GFR (MDRD) Non-Af > 60 (>60) 11/08/19 04:38 Glucose 136 mg/dL (75-110) H 11/08/19 04:38 POC Glucose 123 mg/dL (70-110) H 11/08/19 07:37 Lactic Acid 1.1 mmol/L (0.7-2.1) 11/05/19 06:37 Calcium 8.6 mg/dL (8.4-10.2) 11/08/19 04:38 Total Bilirubin 0.5 mg/dL (0.2-1.3) 11/04/19 23:22 Direct Bilirubin 0.1 mg/dL (0.0-0.4) 11/04/19 23:22 Neonat Total Bilirubin Not Reportable 11/04/19 23:22 Neonat Direct Bilirubin Not Reportable 11/04/19 23:22 Neonat Indirect Bili Not Reportable 11/04/19 23:22 AST 21 U/L (17-59) 11/04/19 23:22 ALT 16 U/L (<50) 11/04/19 23:22 Alkaline Phosphatase 106 U/L (38-126) 11/04/19 23:22 Troponin I < 0.012 ng/mL 11/04/19 23:22 NT-Pro-B Natriuret Pep 120 pg/mL (<125) 11/04/19 23:22 Total Protein 6.7 g/dL (6.3-8.2) 11/04/19 23:22 Albumin 4.3 g/dL (3.5-5.0) 11/04/19 23:22 Urine Color STRAW 11/05/19 04:35 Urine Appearance CLEAR 11/05/19 04:35 Urine pH 5.0 (5.0-9.0) 11/05/19 04:35 Ur Specific [place] 1.007 11/05/19 04:35 Urine Protein NEGATIVE mg/dL (NEGATIVE) 11/05/19 04:35 Urine Glucose (UA) >=500 mg/dL (NEGATIVE) H 11/05/19 04:35 Urine Ketones TRACE mg/dL (NEGATIVE) H 11/05/19 04:35 Urine Blood NEGATIVE (NEGATIVE) 11/05/19 04:35 Urine Nitrite (Reflex) NEGATIVE (NEGATIVE) 11/05/19 04:35 Urine Bilirubin NEGATIVE (NEGATIVE) 11/05/19 04:35 Urine Urobilinogen NEGATIVE mg/dL (<2.0) 11/05/19 04:35 Leukocyte Esterase Rfl NEGATIVE (NEGATIVE) 11/05/19 04:35 Urine RBC (Auto) 0 /HPF 11/05/19 04:35 U Hyaline Cast (Auto) 4 /LPF 11/05/19 04:35 Urine WBC (Reflex) < 1 /HPF 11/05/19 04:35 Squamous Epi Cells Auto <1 /HPF 11/05/19 04:35 Urine Mucus (Auto) RARE /LPF 11/05/19 04:35 Urine Ascorbic Acid NEGATIVE (NEGATIVE) 11/05/19 04:35 COVID-19 Source NASOPHARYNGEAL 11/05/19 02:30 COVID-19 (ANA) NOT DETECTED 11/05/19 02:30 Influenza A (Rapid) NEGATIVE (NEGATIVE) 11/05/19 00:09 Influenza B (Rapid) NEGATIVE (NEGATIVE) 11/05/19 00:09 11/04/19 11/04/19 23:22 23:22 Troponin I < 0.012 NT-Pro-B Natriuret Pep 120 Impressions: Chest X-Ray 11/04/19 22:48 IMPRESSION: Improvement in interstitial edema. Persistent bibasilar airspace opacities which may reflect a combination of layering effusion/atelectasis. Underlying pneumonia not excluded copyright 2010 [email or web address]- All Rights Reserved Chest CT 11/05/19 00:00 IMPRESSION: No pneumonia. Plan Time Spent: Greater than 30 Minutes - Follow in 2 weeks in office Stroke Is this a Stroke Patient?: No Acute Heart Failure - Is this a Heart Failure Patient?: No
[2019-11-08] MEDS: TAMSULOSIN HCL 0.4 MG CAP.SR.24H PO SCH (10:12)
[2019-11-08] MEDS: METFORMIN HCL 500 MG TABLET PO SCH (10:12)
[2019-11-08] MEDS: ATORVASTATIN CALCIUM 40 MG TABLET PO SCH (10:12)
[2019-11-08] MEDS: ASPIRIN 81 MG TABLET, ENT COATED PO SCH (10:12)
[2019-11-08] MEDS: GABAPENTIN 100 MG CAPSULE PO SCH (10:13)
[2019-11-08] MEDS: FUROSEMIDE 20 MG TABLET PO SCH (10:13)
[2019-11-08] MEDS: DILTIAZEM HCL 30 MG TABLET PO SCH (10:13)
[2019-11-08] MEDS: LEVOFLOXACIN 500 MG TABLET PO SCH (10:13)
[2019-11-08] MEDS: LACTOBACILLUS ACIDOPHILUS 250 MG TAB PO SCH (10:13)
[2019-11-08] MEDS: METRONIDAZOLE 500 MG TABLET PO SCH (10:15)
[2019-11-08] MEDS: FLUTICASONE NASAL SPRAY 50 MCG/SPRY 120 SPRAY/16 GM NASL SCH (10:17)
[2019-11-08] MEDS: INSULIN GLARGINE,HUM.REC.ANLOG 1,000 UNIT/10 ML VIAL SUBCUT SCH (10:17)
[2019-11-08] MEDS: FLUTICASONE/UMECLIDIN/VILANTER 100-62.5-25 MCG/DOSE IH SCH (10:17)
[2019-11-08] MEDS: ENOXAPARIN SODIUM INJ 40 MG/0.4 ML DISP.SYRIN SUBCUT SCH (10:19)
== END 2019-11-08 11:15 | disposition home or self-care (01) | DRG 189 ==
LOC: ER 22:26 → EH 11-05 01:07 → 5 11-05 04:15 → 3W 11-07 13:27
PROVIDERS: ADMIT Family Medicine; ATTEND Family Medicine
PROC: 5A09457 Assistance with Respiratory Ventilation, 24-96 Consecutive Hours, Continuous Positive Airway Pressure (ICD-10-PCS; principal; 2019-11-04)
DX: J96.21 Acute and chronic respiratory failure with hypoxia (principal); J44.1 Chronic obstructive pulmonary disease with (acute) exacerbation; I25.2 Old myocardial infarction; I11.0 Hypertensive heart disease with heart failure; I50.9 Heart failure, unspecified; E11.9 Type 2 diabetes mellitus without complications; E66.9 Obesity, unspecified; F17.210 Nicotine dependence, cigarettes, uncomplicated; G47.30 Sleep apnea, unspecified; Z82.49 Family history of ischemic heart disease and other diseases of the circulatory system; Z88.0 Allergy status to penicillin; Z91.018 Allergy to other foods; Z99.81 Dependence on supplemental oxygen; Z91.041 Radiographic dye allergy status; Z03.818 Encounter for observation for suspected exposure to other biological agents ruled out; Z82.5 Family history of asthma and other chronic lower respiratory diseases; Z79.82 Long term (current) use of aspirin; Z79.4 Long term (current) use of insulin; Z79.899 Other long term (current) drug therapy; Z79.51 Long term (current) use of inhaled steroids; Z91.19 Patient's noncompliance with other medical treatment and regimen
CPT/HCPCS: 36415; 71045; 71250; 80048; 80053; 81001; 82803; 82962; 83605; 83880; 84484; 85025; 85610; 87040; 87070; 87205; 87635; 87804; 93005; 93010; 94660; 96374; 99291; J0692; J1650; J1815; J1940; J2920; J2930; J3370; J3490; J7620

== ENCOUNTER 2019-11-25 12:32 | Inpatient (IN) | payer MEDICARE, MEDICAID ==
[2019-11-25] MEDS ORDERED: METHYLPREDNISOLONE INJ 125 MG/2 ML SDV IV ONE (12:42)
[2019-11-25] MEDS ORDERED: IPRATROPIUM/ALBUTEROL 0.5-2.5 MG/3 ML AMPUL NEB ONE (12:42)
--- NOTE | 2019-11-25 12:49 | ER Document Report ---
ED Respiratory Problem - General Chief Complaint: Shortness Of Breath Stated Complaint: SHORTNESS OF BREATH, FOOT INJURY Time Seen by Provider: 11/25/19 12:41 Primary Care Provider: ARTEMIO KAMINSKI MD [Primary Care Provider] - Follow up as needed Mode of Arrival: Medic Information source: Patient, Emergency Med Personnel, [facility] Records Notes: Patient is a 53-year-old male presenting to the emergency department chief complaint worsened shortness of breath. Patient states he was recently discharged from the hospital for similar complaint he states over the past coup le of days he is become much more short of breath. Patient states that he has been taking his medications as prescribed. Patient states that he has not had any sick contacts. Patient denies nausea vomiting but does report subjective fevers. TRAVEL OUTSIDE OF THE [place] IN LAST 30 DAYS: No - HPI Patient complains to provider of: COPD, Cough, Short of breath Onset: Last week Duration: Continuous, Worse/persistent Initiating Event: URI Quality of pain: Achy Severity: Moderate Pain Level: 2 Context: Hx COPD Short of Breath: Moderate Chest pain/discomfort: Center Cough: Nonproductive At home treatment: Bronchodilators, CPAP Associated symptoms: Congestion, Fever, Short of breath Worsened by: Even the most minimal of exertion. Similar symptoms previously: Yes Recently seen / treated by doctor: Yes - Related Data Allergies/Adverse Reactions: amoxicillin [Amoxicillin] Adverse Reaction (Verified 09/24/19 18:13) Hives Iodinated Contrast Media [IV Dye, Iodine Containing] Adverse Reaction (Verified 09/24/19 18:13) Hives Penicillins Adverse Reaction (Verified 09/24/19 18:13) Hives Apricots Adverse Reaction (Mild, Uncoded 11/04/18 14:46) Hives Past Medical History - General Information source: Patient, Emergency Med Personnel, [facility] Records - Social History Smoking Status: Former Smoker Cigarette use (# per day): No Chew tobacco use (# tins/day): No Smoking Education Provided: No Frequency of alcohol use: None Drug Abuse: None Family History: Reviewed & Not Pertinent, COPD, Hypertension Patient has suicidal ideation: No Patient has homicidal ideation: No - Past Medical History Cardiac Medical History: Reports: Hx Congestive Heart Failure, Hx Heart Attack - 2018, Hx Hypercholesterolemia, Hx Hypertension Denies: Hx Coronary Artery Disease Pulmonary Medical History: Reports: Hx Asthma, Hx Bronchitis, Hx COPD, Hx Pneumonia Denies: Hx Tuberculosis Neurological Medical History: Denies: Hx Cerebrovascular Accident, Hx Migraine, Hx Seizures Endocrine Medical History: Reports: Hx Diabetes Mellitus Type 2 Renal/ Medical History: Denies: Hx Peritoneal Dialysis GI Medical History: Denies: Hx Cirrhosis, Hx Crohn's Disease, Hx Ulcerative Colitis Musculoskeletal Medical History: Denies Hx Arthritis Skin Medical History: Denies Hx Psoriasis Psychiatric Medical History: Reports: Hx Depression Traumatic Medical History: Denies: Hx Gunshot Wound, Hx Pneumothorax, Hx Traumatic Brain Injury Infectious Medical History: Denies: Hx HIV Past Surgical History: Reports: Hx Abdominal Surgery - hernia repair, Hx Cardiac Catheterization, Hx Cholecystectomy, Hx Orthopedic Surgery - R foot, Hx Tonsillectomy - Immunizations Hx Diphtheria, Pertussis, Tetanus Vaccination: Yes Hx Pneumococcal Vaccination: 04/20/13 Review of Systems - Review of Systems Notes: REVIEW OF SYSTEMS: CONSTITUTIONAL : Denies fever, chills, or sweats. Denies recent illness. EENT: Denies eye, ear, throat, or mouth pain or symptoms. Denies nasal or sinus congestion. CARDIOVASCULAR: Denies chest pain. RESPIRATORY: Per HPI GASTROINTESTINAL: Denies abdominal pain. Denies nausea, vomiting, or diarrhea. Denies constipation. GENITOURINARY: Denies difficulty urinating, painful urination, burning, frequency, or blood in urine. MUSCULOSKELETAL: Denies neck or back pain or joint pain or swelling. SKIN: Denies rash or skin lesions. HEMATOLOGIC : Denies easy bruising or bleeding. NEUROLOGICAL: Denies altered mental status or loss of consciousness. Denies headache. Denies weakness or paralysis or loss of use of either side. Denies problems with gait or speech. Denies sensory or motor loss. PSYCHIATRIC: Denies suicidal or homicidal ideations 10 Systems are negative unless otherwise specified above Physical Exam - Vital signs Vitals: Resp Pulse Ox 32 H 98 11/25/19 12:33 11/25/19 12:33 - Notes Notes: PHYSICAL EXAMINATION: GENERAL: Patient is a 53-year-old male presenting to the emergency department in moderate respiratory distress HEAD: Atraumatic, normocephalic. EYES: Pupils equal round and reactive to light, extraocular movements intact, sclera anicteric, conjunctiva are normal. ENT: nares patent, oropharynx clear without exudates. Dry mucous membranes. NECK: Normal range of motion, supple without lymphadenopathy, no appreciable JVD LUNGS: Markedly decreased lung sounds in all dickinson, patient is tachypneic, patient is using accessory muscles to breathe, patient does feel better sitting up versus lying down HEART: Regular rate and rhythm without murmurs ABDOMEN: Soft, nontender, normal bowel sounds. No guarding, no rebound. No masses appreciated. EXTREMITIES: Active full range of motion, minimal lower extremity edema. No cyanosis. 2+ pulses x4 NEUROLOGICAL: No focal neurological deficits. Moves all extremities spontaneously and on command. SKIN: Warm, Dry, and intact. Normal turgor, no rashes or lesions noted. Course - Re-evaluation Re-evalutation: 11/25/19 16:15 EKG was obtained at 1253 hrs. demonstrating sinus tachycardia rate of 113 bpm there is some artifact and movement artifact there is no contiguous ST elevation no axis deviation and no old EKG available for comparison. Patient did have great toe on the left foot dressed secondary to complete avulsion of the toenail. Patient is on BiPAP, has received DuoNeb breathing treatment as well as Solu-Medrol and is feeling markedly improved. Patient and I did discuss EKG radiologic and laboratory results however with the patient's continued shortness of breath and need for medical management he is agreeable with admission to the hospitalist service. I spoke to the hospitalist who is agreeable with IMCU admission. 11/25/19 16:17 - Vital Signs Vital signs: Temp Pulse Resp BP Pulse Ox 97.8 F 20 104/60 99 11/25/19 16:02 11/25/19 16:02 11/25/19 16:02 11/25/19 16:02 - Laboratory Result Diagrams: 11/25/19 12:40 11/25/19 12:40 Laboratory results interpreted by me: 11/25/19 11/25/19 11/25/19 12:40 12:40 12:40 WBC 11.3 H RDW 16.5 H Absolute Neuts (auto) 8.5 H VBG pH VBG pCO2 VBG HCO3 Sodium 134.2 L Potassium 5.5 H Chloride 93 L Carbon Dioxide 35 H BUN 32 H Glucose 266 H Creatine Kinase 45 L NT-Pro-B Natriuret Pep 130 H Urine Glucose (UA) Urine Blood 11/25/19 11/25/19 12:40 13:56 WBC RDW Absolute Neuts (auto) VBG pH 7.19 L* VBG pCO2 92.3 H* VBG HCO3 34.7 H Sodium Potassium Chloride Carbon Dioxide BUN Glucose Creatine Kinase NT-Pro-B Natriuret Pep Urine Glucose (UA) >=500 H Urine Blood SMALL H - Diagnostic Test Radiology reviewed: Reports reviewed - EKG Interpretation by Me EKG shows normal: Sinus rhythm Rate: Tachycardia When compared to previous EKG there are: Previous EKG unavailable Discharge - Discharge Clinical Impression: COPD with acute exacerbation, Weakness Toenail avulsion Qualifiers: Encounter type: initial encounter Qualified Code(s): S91.209A - Unspecified open wound of unspecified toe(s) with damage to nail, initial encounter Accidental fall Qualifiers: Encounter type: initial encounter Qualified Code(s): W19.XXXA - Unspecified fall, initial encounter Condition: Fair Disposition: ADMITTED INPATIENT Admitting Provider: Alfredo (Hospitalist) Unit Admitted: IMCU Referrals: ARTEMIO KAMINSKI MD [Primary Care Provider] - Follow up as needed
[2019-11-25 13:03] LABS: ABSOLUTE EOSINOPHILS # (AUTO) 0.1 10^3/uL (0.0-0.6); ABSOLUTE LYMPHOCYTES (AUTO) 2.2 10^3/uL (0.5-4.7); ABSOLUTE MONOCYTES (AUTO) 0.4 10^3/uL (0.1-1.4); ABSOLUTE NEUT (AUTO) 8.5 10^3/uL (1.7-8.2); BASOPHILS % (AUTO) 0.3 % (0-2); EOSINOPHILS % (AUTO) 1.2 % (0-6); HEMATOCRIT 44.9 % (37.9-51.0); HEMOGLOBIN 15.2 g/dL (13.5-17.0); LYMPHOCYTES % (AUTO) 19.5 % (13-45); MEAN CORPUSCULAR HEMOGLOBIN 31.3 pg (27.0-33.4); MEAN CORPUSCULAR HGB CONC 33.8 g/dL (32.0-36.0); MEAN CORPUSCULAR VOLUME 93 fl (80-97); MONOCYTES % (AUTO) 3.6 % (3-13); PLATELET COUNT 206 10^3/uL (150-450); RED BLOOD COUNT 4.84 10^6/uL (4.35-5.55); RED CELL DISTRIBUTION WIDTH 16.5 % (11.5-14.0); SEGMENTED NEUTROPHILS % (AUTO) 75.4 % (42-78); TOTAL CELLS COUNTED % (AUTO) 100 %; WHITE BLOOD COUNT 11.3 10^3/uL (4.0-10.5)
[2019-11-25 13:04] LABS: VENOUS BLOOD BASE EXCESS 3.1 mmol/L; VENOUS BLOOD HCO3 34.7 mmol/L (20-32)
[2019-11-25 13:07] LABS: VENOUS BLOOD PCO2 92.3 mmHg (35-63); VENOUS BLOOD PH 7.19 (7.30-7.42)
[2019-11-25 13:23] LABS: ALBUMIN 4.8 g/dL (3.5-5.0); ALKALINE PHOSPHATASE 78 U/L (38-126); ANION GAP 6 (5-19); ASPARTATE AMINO TRANSFERASE 22 U/L (17-59); BILIRUBIN,DIRECT 0.1 mg/dL (0.0-0.4); BILIRUBIN,TOTAL 0.6 mg/dL (0.2-1.3); BLOOD UREA NITROGEN 32 mg/dL (7-20); CALCIUM 9.8 mg/dL (8.4-10.2); CARBON DIOXIDE 35 mmol/L (22-30); CHLORIDE 93 mmol/L (98-107); CREATINE KINASE 45 U/L (55-170); GLUCOSE 266 mg/dL (75-110); POTASSIUM 5.5 mmol/L (3.6-5.0); TOTAL PROTEIN 7.2 g/dL (6.3-8.2)
[2019-11-25 13:35] LABS: CREATINE KINASE MB 3.36 ng/mL (<4.55); NT PRO BNP 130 pg/mL (<125); TROPONIN I < 0.012 ng/mL
[2019-11-25 14:23] LABS: APPEARANCE,URINE CLEAR; BILIRUBIN,URINE NEGATIVE (NEGATIVE); COLOR,URINE STRAW; GLUCOSE, URINE >=500 mg/dL (NEGATIVE); KETONES,URINE NEGATIVE (NEGATIVE); LEUKOCYTE ESTERASE,URINE NEGATIVE (NEGATIVE); NITRITE,URINE NEGATIVE (NEGATIVE); PROTEIN,URINE NEGATIVE (NEGATIVE); URINE SPECIFIC GRAVITY 1.017; UROBILINOGEN,URINE NEGATIVE mg/dL (<2.0)
--- NOTE | 2019-11-25 14:29 | RADIOLOGY REPORT (SQ) ---
EXAM DESCRIPTION: CHEST SINGLE VIEW IMAGES COMPLETED DATE/TIME: 11/25/2019 1:36 pm REASON FOR STUDY: sob COMPARISON: 09/03/2018, 11/04/2019 EXAM PARAMETERS: NUMBER OF VIEWS: One view. TECHNIQUE: Single frontal radiographic view of the chest acquired. RADIATION DOSE: NA LIMITATIONS: None. FINDINGS: LUNGS AND PLEURA: Blunting of the left costophrenic angle. No infiltrate. MEDIASTINUM AND HILAR STRUCTURES: No masses. Contour normal. HEART AND VASCULAR STRUCTURES: Heart normal in size. Normal vasculature. BONES: No acute findings. HARDWARE: None in the chest. OTHER: No other significant finding. IMPRESSION: Pleural thickening versus small left effusion. TECHNICAL DOCUMENTATION: JOB ID: [id number] 2010 [employer]- All Rights Reserved Reading location - IP/workstation name: [email or web address]
[2019-11-25 14:31] LABS: A TYPE INFLUENZA AG NEGATIVE (NEGATIVE); B INFLUENZA AG NEGATIVE (NEGATIVE)
[2019-11-25] MEDS ORDERED: ACETAMINOPHEN 325 MG TABLET PO PRN (16:38)
[2019-11-25] MEDS ORDERED: ONDANSETRON HCL INJ/PF 4 MG/2 ML SDV IV PRN (16:38)
[2019-11-25] MEDS ORDERED: IPRATROPIUM/ALBUTEROL 0.5-2.5 MG/3 ML AMPUL NEB PRN (16:42)
[2019-11-25] MEDS ORDERED: DEXTROSE 50%-WATER 25 GM/50 ML DISP.SYRIN IV PRN ×2 (16:43)
[2019-11-25] MEDS ORDERED: GLUCAGON,HUMAN RECOMB 1 MG INJ IM PRN (16:43)
[2019-11-25] MEDS ORDERED: DEXTROSE 40% GEL 15 GM TUBE PO PRN ×2 (16:43)
--- NOTE | 2019-11-25 16:53 | PDOC H&P ---
History of Present Illness Admission Date/PCP: 11/25/19 16:24 ARTEMIO KAMINSKI MD Patient complains of: Shortness of breath History of Present Illness: ADÁN CHEUNG is a 53 year old male history of COPD on 4 L of oxygen at home, congestive heart failure, coronary artery disease, hypertension, diabetes mellitus came to the emergency room with complaints of increasing shortness of breath requiring BiPAP in the ER. Complaining of cough with greenish sputum. Denies any fevers. Denies any nausea vomiting diarrhea abdominal pain. Denies any recent contact with the people with COVID test positive. Denies any recent travels. Past Medical History Cardiac Medical History: Reports: Congestive Heart Failure, Myocardial In far - 2018, Hyperlipidema, Hypertension Denies: Coronary Artery Disease Pulmonary Medical History: Reports: Asthma, Bronchitis, Chronic Obstructive Pulmonary Disease (COPD), Pneumonia Denies: Tuberculosis Neurological Medical History: Denies: Migraine, Seizures Endocrine Medical History: Reports: Diabetes Mellitus Type 2 GI Medical History: Denies: Cirrhosis, Crohn's Disease, Ulcerative Colitis Musculoskeltal Medical History: Denies: Arthritis Skin Medical History: Denies: Psoriasis Psychiatric Medical History: Reports: Depression Traumatic Medical History: Denies: Gunshot Wound, Pneumothorax, Traumatic Brain Injury Hematology: Denies: Anemia, Hemophilia, Sickle Cell Disease Infectious Medical History: Denies: HIV Past Surgical History Past Surgical History: Reports: Cardiac Catheterization, Cholecystectomy, Orthopedic Surgery - R foot, Tonsillectomy Social History Smoking Status: Former Smoker Frequency of Alcohol Use: Rare Hx Recreational Drug Use: No Drugs: None Hx Prescription Drug Abuse: No - Advance Directive Resuscitation Status: Full Code Family History Family History: Reviewed & Not Pertinent, COPD, Hypertension Parental Family History Reviewed: Yes - Family history of diabetes mellitus Children Family History Reviewed: Yes Sibling(s) Family History Reviewed.: Yes Medication/Allergy Home Medications: Aspirin [Adult Low Dose Aspirin EC] 81 mg PO DAILY 06/25/19 Atorvastatin Calcium [Lipitor 40 mg Tablet] 40 mg PO QHS 06/25/19 Diltiazem HCl [Diltiazem 24Hr ER] 120 mg PO DAILY 06/25/19 Empagliflozin [Jardiance] 10 mg PO DAILY 06/25/19 Fluticasone Propionate [Flonase Nasal [place] 50 Mcg/[place] 16 gm] 1 spray NASL Q12HP PRN 06/25/19 Furosemide [Lasix 20 mg Tablet] 10 mg PO DAILY 06/25/19 Gabapentin [Neurontin 100 mg Capsule] 100 mg PO Q8 06/25/19 Insulin Aspart [Novolog Flexpen] 0 unit SQ .SLIDING SCALE 06/25/19 Ipratropium/Albuterol Sulfate [Combivent Respimat 4 gm Mdi] 1 puff IH QID 06/25/19 Lisinopril [Zestril] 2.5 mg PO DAILY 06/25/19 Sitagliptin Phos/Metformin HCl [Janumet 50-500 mg Tablet] 1 each PO BIDBS 06/25/19 Tamsulosin HCl [Flomax] 0.4 mg PO DAILY 06/25/19 Albuterol Sulfate [Ventolin Hfa 8 gm Mdi (1 Mdi/ER Disp)] 2 puff IH Q4HP PRN 11/05/19 Doxycycline Hyclate 100 mg PO BID #14 tablet. 11/08/19 Insulin Detemir [Levemir] 65 unit SQ Q12 #60 11/08/19 Lactobacillus Acidophilus [Bacid 250 mg Tablet] 250 mg PO BID #20 tab 11/08/19 Prednisone [Deltasone 20 mg Tablet] 20 mg PO BID #10 tablet 11/08/19 Allergies/Adverse Reactions: amoxicillin [Amoxicillin] Adverse Reaction (Verified 09/24/19 18:13) Hives Iodinated Contrast Media [IV Dye, Iodine Containing] Adverse Reaction (Verified 09/24/19 18:13) Hives Penicillins Adverse Reaction (Verified 09/24/19 18:13) Hives Apricots Adverse Reaction (Mild, Uncoded 11/04/18 14:46) Hives Review of Systems Constitutional: PRESENT: fatigue, weakness. ABSENT: fever(s), headache(s), night sweats, weight loss Nose, Mouth, and Throat: ABSENT: sore throat Cardiovascular: PRESENT: palpitations. ABSENT: chest pain Respiratory: PRESENT: dyspnea. ABSENT: hemoptysis Gastrointestinal: ABSENT: abdominal pain, dysphagia, heartburn, hematemesis, hematochezia Integumentary: ABSENT: rash Neurological: PRESENT: as per HPI Psychiatric: ABSENT: anxiety, depression, homidical ideation, suicidal ideation Endocrine: ABSENT: cold intolerance, heat intolerance, polydipsia, polyuria Physical Exam Vital Signs: Temp Pulse Resp BP Pulse Ox 97.8 F 20 104/60 99 11/25/19 16:02 11/25/19 16:02 11/25/19 16:02 11/25/19 16:02 Intake & Output 11/24/19 11/25/19 11/26/19 06:59 06:59 06:59 Weight 107.3 kg General appearance: PRESENT: mild distress, morbidly obese Head exam: PRESENT: atraumatic Eye exam: PRESENT: PERRLA Ear exam: PRESENT: normal external ear exam Mouth exam: PRESENT: neck supple Teeth exam: PRESENT: poor dentation Neck exam: ABSENT: carotid bruit, JVD, lymphadenopathy, thyromegaly Respiratory exam: PRESENT: decreased breath sounds Cardiovascular exam: PRESENT: RRR. ABSENT: diastolic murmur, rubs, systolic murmur GI/Abdominal exam: PRESENT: normal bowel sounds, soft. ABSENT: distended, guarding, mass, organolmegaly, rebound, tenderness Rectal exam: PRESENT: deferred Extremities exam: PRESENT: full ROM. ABSENT: calf tenderness, clubbing, pedal edema Neurological exam: PRESENT: alert, awake, oriented to person, oriented to place, oriented to time, oriented to situation, CN II-XII grossly intact. ABSENT: motor sensory deficit Psychiatric exam: PRESENT: appropriate affect, normal mood. ABSENT: homicidal ideation, suicidal ideation Results Laboratory Results: 11/25/19 12:40 11/25/19 12:40 11/25/19 11/25/19 11/25/19 12:40 12:40 12:40 WBC 11.3 H RBC 4.84 Hgb 15.2 Hct 44.9 MCV 93 MCH 31.3 MCHC 33.8 RDW 16.5 H Plt Count 206 Seg Neutrophils % 75.4 VBG pH VBG pCO2 VBG HCO3 VBG Base Excess Sodium 134.2 L Potassium 5.5 H Chloride 93 L Carbon Dioxide 35 H Anion Gap 6 BUN 32 H Creatinine 0.99 Est GFR ( Amer) > 60 Glucose 266 H Lactic Acid 1.1 Calcium 9.8 Magnesium 2.3 Total Bilirubin 0.6 AST 22 Alkaline Phosphatase 78 Total Protein 7.2 Albumin 4.8 Urine Color Urine Appearance Urine pH Ur Specific [place] Urine Protein Urine Glucose (UA) Urine Ketones Urine Blood Urine Nitrite Ur Leukocyte Esterase 11/25/19 11/25/19 12:40 13:56 WBC RBC Hgb Hct MCV MCH MCHC RDW Plt Count Seg Neutrophils % VBG pH 7.19 L* VBG pCO2 92.3 H* VBG HCO3 34.7 H VBG Base Excess 3.1 Sodium Potassium Chloride Carbon Dioxide Anion Gap BUN Creatinine Est GFR ( Amer) Glucose Lactic Acid Calcium Magnesium Total Bilirubin AST Alkaline Phosphatase Total Protein Albumin Urine Color STRAW Urine Appearance CLEAR Urine pH 5.0 Ur Specific [place] 1.017 Urine Protein NEGATIVE Urine Glucose (UA) >=500 H Urine Ketones NEGATIVE Urine Blood SMALL H Urine Nitrite NEGATIVE Ur Leukocyte Esterase NEGATIVE 11/25/19 11/25/19 12:40 12:40 Creatine Kinase 45 L CK-MB (CK-2) 3.36 Troponin I < 0.012 NT-Pro-B Natriuret Pep 130 H Impressions: Chest X-Ray 11/25/19 12:42 IMPRESSION: Pleural thickening versus small left effusion. Assessment and Plan - Diagnosis (1) COPD with acute exacerbation Is this a current diagnosis for this admission?: Yes Plan: 11/25/2019-patient is could be admitted to [facility] with a diagnosis COPD with acute decrease exacerbation. Started on IV Solu-Medrol, DuoNeb nebulizations. Started on IV levo floxacillin. dvt and GI prophylaxis initiated. To be placed on BiPAP on as-needed basis. Chest x-ray suggestive of pleural effusion plan to do the CT chest without contrast today. (2) Acute and chronic respiratory failure ([id number]) Is this a current diagnosis for this admission?: Yes Plan: 11/25/2019-patient has history of COPD on 4 L of oxygen at home came in with shortness of breath. Pulse ox are in the 90s in the ER requiring BiPAP. Return scheduled and as needed nebulizations. Started on IV Solu-Medrol. (3) BMI 40.0-44.9, adult Is this a current diagnosis for this admission?: No Plan: 11/25/2019-patient BMI is more than 40 diet exercise weight loss lifestyle modification discussed with the patient. (4) Diabetes mellitus type 2 in obese Is this a current diagnosis for this admission?: No Plan: 11/25/2019-patient has history of type 2 diabetes mellitus on Januvia/metformin at home started her insulin sliding scale to check for hemoglobin A1c. To start him on Lantus 10 units twice a day.
--- NOTE | 2019-11-25 17:01 | RADIOLOGY REPORT (SQ) ---
EXAM DESCRIPTION: CT CHEST WITHOUT IMAGES COMPLETED DATE/TIME: 11/25/2019 4:52 pm REASON FOR STUDY: plural effusion COMPARISON: 11/05/2019 TECHNIQUE: CT scan performed of the chest without intravenous contrast. Images reviewed with lung, soft tissue and bone windows. Reconstructed coronal and sagittal MPR images reviewed. All images st ored on PACS. All CT scanners at this facility use dose modulation, iterative reconstruction, and/or weight based d osing when appropriate to reduce radiation dose to as low as reasonably achievable (ALARA). [facility]: Dose Right [facility]: CareDose [facility]: Dose Right [facility]: Teradose 4D [facility]: Smart Fobbler RADIATION DOSE: CT Rad equipment meets quality standard of care and radiation dose reduction techniq ues were employed. CTDIvol: 20.4 mGy. DLP: 866 mGy-cm. mGy. LIMITATIONS: No technical limitations. FINDINGS: LUNGS AND PLEURA: Linear atelectasis in the lingula. No consolidation or effusions. Ther e is pleural thickening in the left costophrenic angle accounting for conventional radiographic findi ngs. Stable focal airspace disease along the right atrial border most likely representing scar. HILAR AND MEDIASTINAL STRUCTURES: No identified masses or abnormal nodes. No obvious aneurysm. HEART AND VASCULAR STRUCTURES: No aneurysm. No pericardial effusion. UPPER ABDOMEN: Small atrophic left kidney. THYROID AND OTHER SOFT TISSUES: No masses. No adenopathy. BONES: No significant finding. HARDWARE: None in the chest. OTHER: No other significant findings. IMPRESSION: NO SIGNIFICANT FINDING ON NON-CONTRASTED CHEST CT. TECHNICAL DOCUMENTATION: JOB ID: [id number] Quality ID # [id number]: Final reports with documentation of one or more dose reduction techniques (e.g., Au tomated exposure control, adjustment of the mA and/or kV according to patient size, use of iterative reconstruction technique) 2010 [employer]- All Rights Reserved Reading location - IP/workstation name: [email or web address]
[2019-11-25] MEDS ORDERED: SODIUM POLYSTYRENE SULFONATE 15 GM/60 ML PO ONE (17:30)
[2019-11-25 18:29] LABS: URINE AMPHETAMINES SCREEN NEGATIVE; URINE BARBITURATES SCREEN NEGATIVE; URINE BENZODIAZEPINES SCREEN NEGATIVE; URINE COCAINE SCREEN NEGATIVE; URINE MARIJUANA (THC) SCREEN NEGATIVE; URINE METHADONE SCREEN NEGATIVE; URINE PHENCYCLIDINE SCREEN NEGATIVE
[2019-11-25] MEDS: LEVOFLOXACIN 750 MG/D5W RTU 750 MG/150 ML RTUPB IV SCH (18:48)
[2019-11-25] MEDS: PANTOPRAZOLE SODIUM 40 MG TABLET.DR PO SCH (18:48)
[2019-11-25] MEDS ORDERED: INSULIN REG, HUMAN 100 UNIT/ML 3 ML VIAL (PYX) ONE (20:42)
[2019-11-25] MEDS: INSULIN REG, HUMAN 100 UNIT/ML 3 ML VIAL (PYX) SUBCUT SCH (21:04)
[2019-11-25 21:23] LABS: ARTERIAL BLOOD BASE EXCESS 1.1 mmol/L; ARTERIAL BLOOD H2CO3 1.46 mmol/L (1.05-1.35); ARTERIAL BLOOD HCO3 27.1 mmol/L (20-24); ARTERIAL BLOOD O2 SATURATION 97.9 % (94-98); ARTERIAL BLOOD PCO2 48.5 mmHg (35-45); ARTERIAL BLOOD PH 7.37 (7.35-7.45); ARTERIAL BLOOD PO2 110.9 mmHg (80-100); ARTERIAL BLOOD TOTAL CO2 28.6 mmol/L (23-27)
[2019-11-25 21:25] LABS: ARTERIAL BLOOD FIO2 40%
[2019-11-25] MEDS ORDERED: INSULIN REG, HUMAN 100 UNIT/ML 3 ML VIAL (PYX) IV ONE (22:00)
[2019-11-25] MEDS: INSULIN GLARGINE,HUM.REC.ANLOG 1,000 UNIT/10 ML VIAL SUBCUT SCH (22:24)
[2019-11-25] MEDS: METHYLPREDNISOLONE INJ 40 MG/1 ML SDV IV SCH (23:07)
[2019-11-26 04:39] LABS: ABSOLUTE LYMPHOCYTES (AUTO) 0.5 10^3/uL (0.5-4.7); ABSOLUTE MONOCYTES (AUTO) 0.1 10^3/uL (0.1-1.4); ABSOLUTE NEUT (AUTO) 7.6 10^3/uL (1.7-8.2); BASOPHILS % (AUTO) 0.5 % (0-2); HEMATOCRIT 37.1 % (37.9-51.0); LYMPHOCYTES % (AUTO) 5.5 % (13-45); MEAN CORPUSCULAR HEMOGLOBIN 31.2 pg (27.0-33.4); MEAN CORPUSCULAR HGB CONC 34.2 g/dL (32.0-36.0); MEAN CORPUSCULAR VOLUME 91 fl (80-97); MONOCYTES % (AUTO) 1.6 % (3-13); PLATELET COUNT 165 10^3/uL (150-450); RED BLOOD COUNT 4.07 10^6/uL (4.35-5.55); RED CELL DISTRIBUTION WIDTH 15.7 % (11.5-14.0); SEGMENTED NEUTROPHILS % (AUTO) 92.4 % (42-78); TOTAL CELLS COUNTED % (AUTO) 100 %; WHITE BLOOD COUNT 8.2 10^3/uL (4.0-10.5)
[2019-11-26 04:45] LABS: HEMOGLOBIN 12.7 g/dL (13.5-17.0)
[2019-11-26 04:56] LABS: ALBUMIN 3.4 g/dL (3.5-5.0); ALKALINE PHOSPHATASE 58 U/L (38-126); ANION GAP 7 (5-19); ASPARTATE AMINO TRANSFERASE 15 U/L (17-59); BILIRUBIN,TOTAL 0.3 mg/dL (0.2-1.3); BLOOD UREA NITROGEN 39 mg/dL (7-20); CALCIUM 8.7 mg/dL (8.4-10.2); CARBON DIOXIDE 28 mmol/L (22-30); CHLORIDE 98 mmol/L (98-107); CHOLESTEROL 133.37 mg/dL (0-200); CREATINE KINASE 58 U/L (55-170); GLUCOSE 238 mg/dL (75-110); TOTAL PROTEIN 5.6 g/dL (6.3-8.2); TRIGLYCERIDES 114 mg/dL (<150)
[2019-11-26 05:07] LABS: DIRECT LDL 51 mg/dL (<100); NT PRO BNP 171 pg/mL (<125)
[2019-11-26 05:11] LABS: POTASSIUM 4.4 mmol/L (3.6-5.0); TROPONIN I < 0.012 ng/mL
[2019-11-26] MEDS: PANTOPRAZOLE SODIUM 40 MG TABLET.DR PO SCH ×2 (05:24→17:24)
[2019-11-26] MEDS: METHYLPREDNISOLONE INJ 40 MG/1 ML SDV IV SCH ×3 (05:27→21:17)
[2019-11-26] MEDS ORDERED: (PENDING PHARMACY ID) (Ipratropium/Albuterol Sulfate [Combivent Respimat 4 Gm Mdi] 1 PUFF) IH PRN (06:50)
--- NOTE | 2019-11-26 07:36 | EKG REPORT ---
SEVERITY:- DEFECTIVE ECG - SINUS TACHYCARDIA RIGHT ATRIAL ABNORMALITY BORDERLINE RIGHT AXIS DEVIATION : Confirmed by: Guillermo Pham MD 26-Nov-2019 07:36:23
[2019-11-26] MEDS ORDERED: (PENDING PHARMACY ID) (Diltiazem Hcl [Diltiazem 24hr Er] 120 MG) PO SCH (10:00)
[2019-11-26] MEDS ORDERED: (PENDING PHARMACY ID) (Empagliflozin [Jardiance] 10 MG) PO SCH (10:00)
[2019-11-26] MEDS ORDERED: INSULIN DETEMIR 65 UNIT SQ SCH (10:00)
[2019-11-26] MEDS: INSULIN GLARGINE,HUM.REC.ANLOG 1,000 UNIT/10 ML VIAL SUBCUT SCH ×2 (10:41→21:15)
[2019-11-26] MEDS: TAMSULOSIN HCL 0.4 MG CAP.SR.24H PO SCH (10:43)
[2019-11-26] MEDS: ASPIRIN 81 MG TABLET, ENT COATED PO SCH (10:43)
[2019-11-26] MEDS: FUROSEMIDE 20 MG TABLET PO SCH (10:43)
[2019-11-26] MEDS: DILTIAZEM HCL 120 MG CAP.SR.24H PO SCH (10:44)
[2019-11-26] MEDS: INSULIN REG, HUMAN 100 UNIT/ML 3 ML VIAL (PYX) SUBCUT SCH ×4 (10:44→21:16)
[2019-11-26] MEDS: ENOXAPARIN SODIUM INJ 40 MG/0.4 ML DISP.SYRIN SUBCUT SCH (10:45)
--- NOTE | 2019-11-26 12:44 | PDOC PROGRESS REPORT ---
Subjective Progress Note for:: 11/26/19 Subjective:: Patient was admitting in the hospital by the hospitalist service yesterday by mistake patient's son was same issue with a COPD respiratory distressed with a noncompliance Patient is currently doing fair denied any chest pain no short of breath Reason For Visit: COPD EXACERBATION Physical Exam Vital Signs: Temp Pulse Resp BP Pulse Ox 97.4 F 61 24 H 113/47 L 100 11/26/19 11:07 11/26/19 11:07 11/26/19 11:07 11/26/19 11:07 11/26/19 11:07 Intake & Output 11/25/19 11/26/19 11/27/19 06:59 06:59 06:59 Intake Total 830 550 Output Total 850 600 Balance -20 -50 Weight 107.2 kg General appearance: PRESENT: no acute distress, well-developed, well-nourished Head exam: PRESENT: atraumatic, normocephalic Eye exam: PRESENT: conjunctiva pink, EOMI, PERRLA. ABSENT: scleral icterus Ear exam: PRESENT: normal external ear exam Mouth exam: PRESENT: moist, tongue midline Neck exam: PRESENT: full ROM. ABSENT: carotid bruit, JVD, lymphadenopathy, thyromegaly Respiratory exam: PRESENT: decreased breath sounds Cardiovascular exam: PRESENT: RRR. ABSENT: diastolic murmur, rubs, systolic murmur Pulses: PRESENT: normal dorsalis pedis pul, +2 pedal pulses bilateral Vascular exam: PRESENT: normal capillary refill GI/Abdominal exam: PRESENT: normal bowel sounds, soft. ABSENT: distended, guarding, mass, organolmegaly, rebound, tenderness Rectal exam: PRESENT: deferred Musculoskeletal exam: PRESENT: ambulatory Neurological exam: PRESENT: alert, awake, oriented to person, oriented to place, oriented to time, oriented to situation, CN II-XII grossly intact. ABSENT: motor sensory deficit Psychiatric exam: PRESENT: appropriate affect, normal mood. ABSENT: homicidal ideation, suicidal ideation Skin exam: PRESENT: dry, intact, warm. ABSENT: cyanosis, rash Results Laboratory Results: 11/26/19 04:26 11/26/19 04:26 11/25/19 11/25/19 11/25/19 12:40 12:40 12:40 WBC 11.3 H RBC 4.84 Hgb 15.2 Hct 44.9 MCV 93 MCH 31.3 MCHC 33.8 RDW 16.5 H Plt Count 206 Seg Neutrophils % 75.4 Carbonic Acid HCO3/H2CO3 Ratio ABG pH ABG pCO2 ABG pO2 ABG HCO3 ABG O2 Saturation ABG Base Excess VBG pH VBG pCO2 VBG HCO3 VBG Base Excess FiO2 Sodium 134.2 L Potassium 5.5 H Chloride 93 L Carbon Dioxide 35 H Anion Gap 6 BUN 32 H Creatinine 0.99 Est GFR ( Amer) > 60 Glucose 266 H Lactic Acid 1.1 Calcium 9.8 Magnesium 2.3 Total Bilirubin 0.6 AST 22 Alkaline Phosphatase 78 Total Protein 7.2 Albumin 4.8 Triglycerides Cholesterol LDL Cholesterol Direct VLDL Cholesterol HDL Cholesterol TSH Urine Color Urine Appearance Urine pH Ur Specific [place] Urine Protein Urine Glucose (UA) Urine Ketones Urine Blood Urine Nitrite Ur Leukocyte Esterase 11/25/19 11/25/19 11/25/19 12:40 13:56 21:09 WBC RBC Hgb Hct MCV MCH MCHC RDW Plt Count Seg Neutrophils % Carbonic Acid 1.46 H HCO3/H2CO3 Ratio 18:1 ABG pH 7.37 ABG pCO2 48.5 H ABG pO2 110.9 H ABG HCO3 27.1 H ABG O2 Saturation 97.9 ABG Base Excess 1.1 VBG pH 7.19 L* VBG pCO2 92.3 H* VBG HCO3 34.7 H VBG Base Excess 3.1 FiO2 40% Sodium Potassium Chloride Carbon Dioxide Anion Gap BUN Creatinine Est GFR ( Amer) Glucose Lactic Acid Calcium Magnesium Total Bilirubin AST Alkaline Phosphatase Total Protein Albumin Triglycerides Cholesterol LDL Cholesterol Direct VLDL Cholesterol HDL Cholesterol TSH Urine Color STRAW Urine Appearance CLEAR Urine pH 5.0 Ur Specific [place] 1.017 Urine Protein NEGATIVE Urine Glucose (UA) >=500 H Urine Ketones NEGATIVE Urine Blood SMALL H Urine Nitrite NEGATIVE Ur Leukocyte Esterase NEGATIVE 11/26/19 11/26/19 11/26/19 04:26 04:26 04:26 WBC 8.2 RBC 4.07 L Hgb 12.7 L D Hct 37.1 L MCV 91 MCH 31.2 MCHC 34.2 RDW 15.7 H Plt Count 165 Seg Neutrophils % 92.4 H Carbonic Acid HCO3/H2CO3 Ratio ABG pH ABG pCO2 ABG pO2 ABG HCO3 ABG O2 Saturation ABG Base Excess VBG pH VBG pCO2 VBG HCO3 VBG Base Excess FiO2 Sodium 133.4 L Potassium 4.4 D Chloride 98 Carbon Dioxide 28 Anion Gap 7 BUN 39 H Creatinine 0.92 Est GFR ( Amer) > 60 Glucose 238 H Lactic Acid Calcium 8.7 Magnesium 2.3 Total Bilirubin 0.3 AST 15 L Alkaline Phosphatase 58 Total Protein 5.6 L Albumin 3.4 L Triglycerides 114 Cholesterol 133.37 LDL Cholesterol Direct 51 VLDL Cholesterol 23.0 HDL Cholesterol 77 TSH 0.11 L Urine Color Urine Appearance Urine pH Ur Specific [place] Urine Protein Urine Glucose (UA) Urine Ketones Urine Blood Urine Nitrite Ur Leukocyte Esterase 11/25/19 11/25/19 11/25/19 12:40 12:40 18:42 Creatine Kinase 45 L 55 CK-MB (CK-2) 3.36 Troponin I < 0.012 NT-Pro-B Natriuret Pep 130 H 11/25/19 11/25/19 11/25/19 18:42 22:09 22:09 Creatine Kinase 60 CK-MB (CK-2) Troponin I < 0.012 < 0.012 NT-Pro-B Natriuret Pep 11/26/19 11/26/19 04:26 04:26 Creatine Kinase 58 CK-MB (CK-2) Troponin I < 0.012 NT-Pro-B Natriuret Pep 171 H Impressions: Chest CT 11/25/19 00:00 IMPRESSION: NO SIGNIFICANT FINDING ON NON-CONTRASTED CHEST CT. Chest X-Ray 11/25/19 12:42 IMPRESSION: Pleural thickening versus small left effusion. Assessment & Plan - Diagnosis (1) COPD with acute exacerbation Is this a current diagnosis for this admission?: Yes Plan: Continues the current medications (2) Toenail avulsion Qualifiers: Encounter type: initial encounter Qualified Code(s): S91.209A - Unspecified open wound of unspecified toe(s) with damage to nail, initial encounter Is this a current diagnosis for this admission?: Yes (3) Acute and chronic respiratory failure ([id number]) Qualifiers: Respiratory failure complication: hypoxia and hypercapnia Qualified C ode(s): J96.21 - Acute and chronic respiratory failure with hypoxia; J96.22 - Acute and chronic respiratory failure with hypercapnia Is this a current diagnosis for this admission?: Yes Plan: Patient is currently using the BiPAP patient also using the trilogy machine at home and continues the oxygen 4 L at home currently back to the baseline's Repeat the ABG in the morning (4) Diabetes mellitus type 2 in obese Is this a current diagnosis for this admission?: Yes Plan: Readjust the insulin dose (5) Hyperlipidemia Qualifiers: Hyperlipidemia type: unspecified Is this a current diagnosis for this admission?: Yes (6) Hypertension Qualifiers: Hypertension type: essential hypertension Is this a current diagnosis for this admission?: Yes - Time Time Spent with patient: 15-24 minutes Level of Care: IMCU Medications reviewed and adjusted accordingly: Yes Within: within 24 hours - Plan Summary Plan Summary: Continues the IV Solu-Medrol we switched to the IV Levaquin to the p.o. Levaquin continues the current medications continues use the BiPAP we will repeat ABG in the morning Again patient is very noncompliance repeated hospital admissions due to not usi ng the trilogy machine at home not using the medications properly
[2019-11-26] MEDS: GABAPENTIN 100 MG CAPSULE PO SCH ×2 (15:09→21:16)
[2019-11-26] MEDS ORDERED: (PENDING PHARMACY ID) (Sitagliptin Phos/Metformin Hcl [Janumet 50-500 Mg Tablet] 1 EACH) PO SCH (17:00)
[2019-11-26] MEDS: SITAGLIPTIN PHOSPHATE 50 MG TABLET PO SCH (17:24)
[2019-11-26] MEDS: METFORMIN HCL 500 MG TABLET PO SCH (17:24)
[2019-11-26] MEDS: LEVOFLOXACIN 750 MG/D5W RTU 750 MG/150 ML RTUPB IV SCH (17:24)
[2019-11-26] MEDS: ATORVASTATIN CALCIUM 40 MG TABLET PO SCH (21:16)
[2019-11-27] MEDS: PANTOPRAZOLE SODIUM 40 MG TABLET.DR PO SCH ×2 (05:47→16:12)
[2019-11-27] MEDS: METHYLPREDNISOLONE INJ 40 MG/1 ML SDV IV SCH ×3 (05:47→21:07)
[2019-11-27] MEDS: GABAPENTIN 100 MG CAPSULE PO SCH ×3 (05:47→21:06)
[2019-11-27 06:17] LABS: HEMOGLOBIN 12.6 g/dL (13.5-17.0); MEAN CORPUSCULAR HEMOGLOBIN 31.3 pg (27.0-33.4); MEAN CORPUSCULAR HGB CONC 34.1 g/dL (32.0-36.0); MEAN CORPUSCULAR VOLUME 92 fl (80-97); PLATELET COUNT 167 10^3/uL (150-450); RED BLOOD COUNT 4.03 10^6/uL (4.35-5.55); RED CELL DISTRIBUTION WIDTH 15.7 % (11.5-14.0); WHITE BLOOD COUNT 10.9 10^3/uL (4.0-10.5)
[2019-11-27 06:40] LABS: ANION GAP 7 (5-19); BLOOD UREA NITROGEN 45 mg/dL (7-20); CALCIUM 8.5 mg/dL (8.4-10.2); CARBON DIOXIDE 27 mmol/L (22-30); CHLORIDE 98 mmol/L (98-107); GLUCOSE 177 mg/dL (75-110); POTASSIUM 4.2 mmol/L (3.6-5.0)
[2019-11-27 06:42] LABS: ABSOLUTE LYMPHOCYTES# (MANUAL) 0.9 10^3/uL (0.5-4.7); ABSOLUTE MONOCYTES # (MANUAL) 0.3 10^3/uL (0.1-1.4); BAND NEUTROPHILS % (MANUAL) 1 % (3-5); BASOPHILS % (MANUAL) 0 % (0-2); EOSINOPHILS % (MANUAL) 0 % (0-6); LYMPHOCYTES % (MANUAL) 8 % (13-45); MONOCYTES % (MANUAL) 3 % (3-13); SEGMENTED NEUTROPHILS % (MAN) 88 % (42-78); TOTAL CELLS COUNTED 100
[2019-11-27 06:43] LABS: PLATELET COMMENT ADEQUATE; RBC MORPHOLOGY COMMENT NORMO-CYTIC/CHROMIC
[2019-11-27 06:57] LABS: ARTERIAL BLOOD BASE EXCESS -1.3 mmol/L; ARTERIAL BLOOD FIO2 40%; ARTERIAL BLOOD H2CO3 1.24 mmol/L (1.05-1.35); ARTERIAL BLOOD HCO3 23.7 mmol/L (20-24); ARTERIAL BLOOD PCO2 41.1 mmHg (35-45); ARTERIAL BLOOD PH 7.38 (7.35-7.45); ARTERIAL BLOOD PO2 92.9 mmHg (80-100)
[2019-11-27] MEDS: METFORMIN HCL 500 MG TABLET PO SCH ×2 (08:17→16:12)
[2019-11-27] MEDS: SITAGLIPTIN PHOSPHATE 50 MG TABLET PO SCH ×2 (08:17→16:12)
[2019-11-27] MEDS: INSULIN REG, HUMAN 100 UNIT/ML 3 ML VIAL (PYX) SUBCUT SCH ×4 (08:18→21:06)
[2019-11-27] MEDS: ENOXAPARIN SODIUM INJ 40 MG/0.4 ML DISP.SYRIN SUBCUT SCH (09:15)
[2019-11-27] MEDS: INSULIN GLARGINE,HUM.REC.ANLOG 1,000 UNIT/10 ML VIAL SUBCUT SCH ×2 (09:15→21:07)
[2019-11-27] MEDS: TAMSULOSIN HCL 0.4 MG CAP.SR.24H PO SCH (09:16)
[2019-11-27] MEDS: DILTIAZEM HCL 120 MG CAP.SR.24H PO SCH (09:16)
[2019-11-27] MEDS: FUROSEMIDE 20 MG TABLET PO SCH (09:16)
[2019-11-27] MEDS: ASPIRIN 81 MG TABLET, ENT COATED PO SCH (09:16)
--- NOTE | 2019-11-27 14:34 | PDOC PROGRESS REPORT ---
Subjective Progress Note for:: 11/27/19 Subjective:: Patient reported improvement in his breathing. no chest pain, less coughing. No fever or chills. There is steroid induced hyperglycemia. No nausea, vomiting, or abdominal pain. Reason For Visit: COPD EXACERBATION Physical Exam Vital Signs: Temp Pulse Resp BP Pulse Ox 97.5 F 64 16 101/58 L 100 11/27/19 11:37 11/27/19 11:37 11/27/19 11:37 11/27/19 11:37 11/27/19 11:37 Intake & Output 11/26/19 11/27/19 11/28/19 06:59 06:59 06:59 Intake Total 830 1615 Output Total 850 2400 Balance - Weight 107.2 kg 101.7 kg General appearance: PRESENT: mild distress - on supplemental oxygen via nasal cannula, obese Head exam: PRESENT: atraumatic, normocephalic Eye exam: PRESENT: conjunctiva pink. ABSENT: scleral icterus Mouth exam: PRESENT: moist Respiratory exam: PRESENT: decreased breath sounds, rhonchi - end expiratory phase Cardiovascular exam: PRESENT: RRR. ABSENT: diastolic murmur, rubs, systolic murmur Vascular exam: ABSENT: pallor GI/Abdominal exam: PRESENT: normal bowel sounds, soft. ABSENT: distended, guarding, mass, organolmegaly, rebound, tenderness Extremities exam: ABSENT: pedal edema Neurological exam: PRESENT: alert, awake, oriented to person, oriented to place, oriented to time, oriented to situation, CN II-XII grossly intact. ABSENT: motor sensory deficit Psychiatric exam: PRESENT: appropriate affect, normal mood. ABSENT: homicidal ideation, suicidal ideation Skin exam: PRESENT: dry, intact, warm, other - traumatic avulsion on left hallux toenail. ABSENT: cyanosis, rash Results Laboratory Results: 11/27/19 05:34 11/27/19 05:34 11/27/19 11/27/19 11/27/19 05:34 05:34 06:25 WBC 10.9 H RBC 4.03 L Hgb 12.6 L Hct 37.0 L MCV 92 MCH 31.3 MCHC 34.1 RDW 15.7 H Plt Count 167 Seg Neutrophils % Not Reportable Carbonic Acid 1.24 HCO3/H2CO3 Ratio 19:1 ABG pH 7.38 ABG pCO2 41.1 ABG pO2 92.9 ABG HCO3 23.7 ABG O2 Saturation 97.0 ABG Base Excess -1.3 FiO2 40% Sodium 132.3 L Potassium 4.2 Chloride 98 Carbon Dioxide 27 Anion Gap 7 BUN 45 H Creatinine 0.88 Est GFR ( Amer) > 60 Glucose 177 H Calcium 8.5 11/25/19 11/25/19 11/25/19 12:40 12:40 18:42 Creatine Kinase 45 L 55 CK-MB (CK-2) 3.36 Troponin I < 0.012 NT-Pro-B Natriuret Pep 130 H 11/25/19 11/25/19 11/25/19 18:42 22:09 22:09 Creatine Kinase 60 CK-MB (CK-2) Troponin I < 0.012 < 0.012 NT-Pro-B Natriuret Pep 11/26/19 11/26/19 04:26 04:26 Creatine Kinase 58 CK-MB (CK-2) Troponin I < 0.012 NT-Pro-B Natriuret Pep 171 H Impressions: Chest CT 11/25/19 00:00 IMPRESSION: NO SIGNIFICANT FINDING ON NON-CONTRASTED CHEST CT. Chest X-Ray 11/25/19 12:42 IMPRESSION: Pleural thickening versus small left effusion. Assessment & Plan - Diagnosis (1) COPD with acute exacerbation Is this a current diagnosis for this admission?: Yes Plan: Continues the current medications. Decrease IV Solu Medrol to 20 mg q12 hours. (2) Diabetes mellitus type 2 in obese Is this a current diagnosis for this admission?: Yes Plan: Continue current insulin management regimen. (3) Toenail avulsion Qualifiers: Encounter type: subsequent encounter Qualified Code(s): S91.209D - Unspecified open wound of unspecified toe(s) with damage to nail, subsequent e ncounter Is this a current diagnosis for this admission?: Yes Plan: Maintain on local wound dressing and benefit from IV Levofloxacin. (4) Hypertension Qualifiers: Hypertension type: essential hypertension Qualified Code(s): I10 - Essential (primary) hypertension Is this a current diagnosis for this admission?: Yes Plan: Maintain on current medication management. Adjust dosing and Lasix usage to accommodate use of Lisinopril for dual benefit of his blood pressure and DM nephropathy (5) Hyperlipidemia associated with type 2 diabetes mellitus Is this a current diagnosis for this admission?: Yes Plan: Maintain on atorvastatin therapy. (6) Obesity, Class II, BMI 35-39.9 Is this a current diagnosis for this admission?: Yes Plan: Continue calorie restriction diet and emphasized at least upper body exercise program for his weight management. (7) Sleep apnea syndrome Qualifiers: Sleep apnea type: unspecified type Is this a current diagnosis for this admission?: Yes Plan: Maintain on BiPAP support while sleeping. - Time Time Spent with patient: 25-34 minutes Level of Care: IMCU Medications reviewed and adjusted accordingly: Yes Anticipated discharge: Home with Homehealth Within: Other - Inpatient Certification Based on my medical assessment, after consideration of the patient's comorbidities, presenting symptoms, or acuity I expect that the services needed warrant INPATIENT care.: Yes I certify that my determination is in accordance with my understanding of Medicare's requirements for reasonable and necessary INPATIENT services [42 CFR 412.3e].: Yes Medical Necessity: Significant Comorbidiites Make Outpatient Treatment Too Risky, Need Close Monitoring Due to Risk of Patient Decompensation, Need For IV Fluids, Need For Continuous Telemetry Monitoring, Risk of Complication if Not Cared For in Hospital, Risk of Diagnosis Which Will Require Inpatient Eval/Care/Monitoring Post Hospital Care: D/C Hydramatic Specialist Documentation - Plan Summary Plan Summary: See attending physician orders for details about care plan.
[2019-11-27] MEDS ORDERED: INSULIN LISPRO 100 UNIT/ML 3 ML VIAL SUBCUT ONE (16:00)
[2019-11-27] MEDS: LEVOFLOXACIN 750 MG/D5W RTU 750 MG/150 ML RTUPB IV SCH (17:25)
[2019-11-27] MEDS: ATORVASTATIN CALCIUM 40 MG TABLET PO SCH (21:06)
[2019-11-28 05:14] LABS: ANION GAP 6 (5-19); BLOOD UREA NITROGEN 39 mg/dL (7-20); CALCIUM 8.6 mg/dL (8.4-10.2); CARBON DIOXIDE 29 mmol/L (22-30); CHLORIDE 97 mmol/L (98-107); GLUCOSE 140 mg/dL (75-110); POTASSIUM 4.2 mmol/L (3.6-5.0)
[2019-11-28] MEDS: GABAPENTIN 100 MG CAPSULE PO SCH ×3 (06:45→21:38)
[2019-11-28] MEDS: PANTOPRAZOLE SODIUM 40 MG TABLET.DR PO SCH ×2 (06:45→16:23)
[2019-11-28] MEDS: INSULIN REG, HUMAN 100 UNIT/ML 3 ML VIAL (PYX) SUBCUT SCH ×4 (07:50→21:38)
[2019-11-28] MEDS: SITAGLIPTIN PHOSPHATE 50 MG TABLET PO SCH ×2 (08:15→16:22)
[2019-11-28] MEDS: METFORMIN HCL 500 MG TABLET PO SCH ×2 (08:15→16:23)
[2019-11-28] MEDS: TAMSULOSIN HCL 0.4 MG CAP.SR.24H PO SCH (09:58)
[2019-11-28] MEDS: DILTIAZEM HCL 120 MG CAP.SR.24H PO SCH (09:58)
[2019-11-28] MEDS: INSULIN GLARGINE,HUM.REC.ANLOG 1,000 UNIT/10 ML VIAL SUBCUT SCH ×2 (09:58→21:38)
[2019-11-28] MEDS: ENOXAPARIN SODIUM INJ 40 MG/0.4 ML DISP.SYRIN SUBCUT SCH (09:58)
[2019-11-28] MEDS: METHYLPREDNISOLONE INJ 40 MG/1 ML SDV IV SCH (09:58)
[2019-11-28] MEDS: ASPIRIN 81 MG TABLET, ENT COATED PO SCH (09:58)
[2019-11-28] MEDS: FUROSEMIDE 20 MG TABLET PO SCH (09:59)
--- NOTE | 2019-11-28 15:28 | PDOC PROGRESS REPORT ---
Subjective Progress Note for:: 11/28/19 Subjective:: Patient remain on BiPAP support while sleeping. He denied any chest pain, less coughing. No fever or chills. No nausea, vomiting, or abdominal pain. Reason For Visit: COPD EXACERBATION Physical Exam Vital Signs: Temp Pulse Resp BP Pulse Ox 97.4 F 64 19 124/57 L 98 11/28/19 15:11 11/28/19 15:11 11/28/19 15:11 11/28/19 15:11 11/28/19 15:11 Intake & Output 11/27/19 11/28/19 11/29/19 06:59 06:59 06:59 Intake Total 1765 1412 Output Total 2400 2080 Balance -635 -668 Weight 101.7 kg 99.4 kg Physical Exam: General appearance: PRESENT: mild distress - on supplemental oxygen via nasal cannula, obese Head exam: PRESENT: atraumatic, normocephalic Eye exam: PRESENT: conjunctiva pink. ABSENT: pallor, scleral icterus Mouth exam: PRESENT: moist Respiratory exam: PRESENT: decreased breath sounds, rhonchi - end expiratory phase Cardiovascular exam: PRESENT: RRR. ABSENT: diastolic murmur, rubs, systolic murmur GI/Abdominal exam: PRESENT: normal bowel sounds, soft. ABSENT: distended, guarding, mass, organomegaly, rebound, tenderness Extremities exam: ABSENT: pedal edema Neurological exam: PRESENT: alert, awake, oriented to person, oriented to place, oriented to time, oriented to situation, CN II-XII grossly intact. ABSENT: motor sensory deficit Psychiatric exam: PRESENT: appropriate affect, normal mood. ABSENT: homicidal ideation, suicidal ideation Skin exam: PRESENT: dry, intact, warm, other - traumatic avulsion on left hallux toenail. ABSENT: cyanosis, rash Results Laboratory Results: 11/27/19 05:34 11/28/19 04:36 11/28/19 04:36 Sodium 132.2 L Potassium 4.2 Chloride 97 L Carbon Dioxide 29 Anion Gap 6 BUN 39 H Creatinine 0.86 Est GFR ( Amer) > 60 Glucose 140 H Calcium 8.6 11/25/19 11/25/19 11/25/19 12:40 12:40 18:42 Creatine Kinase 45 L 55 CK-MB (CK-2) 3.36 Troponin I < 0.012 NT-Pro-B Natriuret Pep 130 H 11/25/19 11/25/19 11/25/19 18:42 22:09 22:09 Creatine Kinase 60 CK-MB (CK-2) Troponin I < 0.012 < 0.012 NT-Pro-B Natriuret Pep 11/26/19 11/26/19 04:26 04:26 Creatine Kinase 58 CK-MB (CK-2) Troponin I < 0.012 NT-Pro-B Natriuret Pep 171 H Impressions: Chest CT 11/25/19 00:00 IMPRESSION: NO SIGNIFICANT FINDING ON NON-CONTRASTED CHEST CT. Chest X-Ray 11/25/19 12:42 IMPRESSION: Pleural thickening versus small left effusion. Assessment & Plan - Diagnosis (1) COPD with acute exacerbation Is this a current diagnosis for this admission?: Yes (2) Diabetes mellitus type 2 in obese Is this a current diagnosis for this admission?: Yes (3) Toenail avulsion Qualifiers: Encounter type: subsequent encounter Qualified Code(s): S91.209D - Unspecified open wound of unspecified toe(s) with damage to nail, subsequent encounter Is this a current diagnosis for this admission?: Yes (4) Hypertension Qualifiers: Hypertension type: essential hypertension Is this a current diagnosis for this admission?: Yes (5) Hyperlipidemia associated with type 2 diabetes mellitus Is this a current diagnosis for this admission?: Yes (6) Obesity, Class II, BMI 35-39.9 Is this a current diagnosis for this admission?: Yes (7) Sleep apnea syndrome Qualifiers: Sleep apnea type: unspecified type Is this a current diagnosis for this admission?: Yes - Time Time Spent with patient: 25-34 minutes Level of Care: IMCU Medications reviewed and adjusted accordingly: Yes Anticipated discharge: Home with Homehealth Within: Other - Inpatient Certification Based on my medical assessment, after consideration of the patient's comorbidi ties, presenting symptoms, or acuity I expect that the services needed warrant INPATIENT care.: Yes I certify that my determination is in accordance with my understanding of Jony knox's requirements for reasonable and necessary INPATIENT services [42 CFR 412.3e].: Yes Medical Necessity: Significant Comorbidiites Make Outpatient Treatment Too Risky, Need Close Monitoring Due to Risk of Patient Decompensation, Need For Continuous Telemetry Monitoring, Need for IV Antibiotics, Risk of Complication if Not Cared For in Hospital, Risk of Diagnosis Which Will Require Inpatient Eval/Care/Monitoring Post Hospital Care: D/C Sole Rougher Documentation - Plan Summary Plan Summary: D/C IV Levofloxacin and Solu Medrol. Start on oral Prednisone and Levofloxacin. Restart on preadmission Trelegy Ellipta 1 puff p.o daily.
[2019-11-28] MEDS: LEVOFLOXACIN 500 MG TABLET PO SCH (16:22)
[2019-11-28] MEDS: PREDNISONE 10 MG TABLET PO SCH (16:23)
[2019-11-28] MEDS: ATORVASTATIN CALCIUM 40 MG TABLET PO SCH (21:38)
[2019-11-29 06:46] LABS: BLOOD UREA NITROGEN 35 mg/dL (7-20); CALCIUM 8.2 mg/dL (8.4-10.2); CARBON DIOXIDE 30 mmol/L (22-30); CHLORIDE 98 mmol/L (98-107); GLUCOSE 88 mg/dL (75-110); POTASSIUM 4.2 mmol/L (3.6-5.0)
[2019-11-29 06:48] LABS: ANION GAP 5 (5-19)
[2019-11-29] MEDS: PANTOPRAZOLE SODIUM 40 MG TABLET.DR PO SCH (06:49)
[2019-11-29] MEDS: GABAPENTIN 100 MG CAPSULE PO SCH (06:49)
[2019-11-29] MEDS: INSULIN REG, HUMAN 100 UNIT/ML 3 ML VIAL (PYX) SUBCUT SCH (07:37)
[2019-11-29] MEDS: METFORMIN HCL 500 MG TABLET PO SCH (07:37)
[2019-11-29] MEDS: SITAGLIPTIN PHOSPHATE 50 MG TABLET PO SCH (07:38)
[2019-11-29 07:41] VITALS: BP 104/60
--- NOTE | 2019-11-29 08:37 | PDOC DISCHARGE SUMMARY ---
Impression - Admit/DC Date/PCP Admission Date/Primary Care Provider: 11/25/19 16:24 ARTEMIO KAMINSKI MD Discharge Date: 11/29/19 - Discharge Diagnosis (1) COPD with acute exacerbation Is this a current diagnosis for this admission?: Yes (2) Toenail avulsion Is this a current diagnosis for this admission?: Yes (3) Acute and chronic respiratory failure ([id number]) Is this a current diagnosis for this admission?: Yes (4) Diabetes mellitus type 2 in obese Is this a current diagnosis for this admission?: Yes (5) Hyperlipidemia Is this a current diagnosis for this admission?: Yes (6) Hypertension Is this a current diagnosis for this admission?: Yes - Additional Information Resuscitation Status: Full Code Discharge Diet: Diabetic Discharge Activity: Activity As Tolerated Referrals: ARTEMIO KAMINSKI MD [Primary Care Provider] - Follow up as needed Prescriptions: Prednisone [Deltasone 10 mg Tablet] 10 mg PO DAILY #7 tablet Levofloxacin [Levaquin 500 mg Tablet] 500 mg PO DAILY #7 tablet Home Medications: Aspirin [Adult Low Dose Aspirin EC] 81 mg PO DAILY 06/25/19 Atorvastatin Calcium [Lipitor 40 mg Tablet] 40 mg PO QHS 06/25/19 Diltiazem HCl [Diltiazem 24Hr ER] 120 mg PO DAILY 06/25/19 Empagliflozin [Jardiance] 10 mg PO DAILY 06/25/19 Furosemide [Lasix 20 mg Tablet] 10 mg PO DAILY 06/25/19 Gabapentin [Neurontin 100 mg Capsule] 100 mg PO Q8 06/25/19 Insulin Aspart [Novolog Flexpen] 0 unit SQ .SLIDING SCALE 06/25/19 Ipratropium/Albuterol Sulfate [Combivent Respimat 4 gm Mdi] 1 puff IH QIDP PRN 06/25/19 Lisinopril [Zestril] 2.5 mg PO DAILY 06/25/19 Sitagliptin Phos/Metformin HCl [Janumet 50-500 mg Tablet] 1 each PO BIDBS 06/25/19 Tamsulosin HCl [Flomax] 0.4 mg PO DAILY 06/25/19 Albuterol Sulfate [Ventolin Hfa 8 gm Mdi (1 Mdi/ER Disp)] 2 puff IH Q4HP PRN 11/05/19 Albuterol Sulfate [Ventolin 0.083% Neb 2.5 mg/3 mL Ampul] 1 vial NEB Q8HP PRN 11/25/19 Fluticasone/Umeclidin/Vilanter [Trelegy 100-62.5-25 Mcg Ellipta 14 Dose/Dpi] 1 puff IH DAILY 11/25/19 Insulin Detemir [Levemir] 25 unit SQ Q12 #60 11/29/19 Levofloxacin [Levaquin 500 mg Tablet] 500 mg PO DAILY #7 tablet 11/29/19 Prednisone [Deltasone 10 mg Tablet] 10 mg PO DAILY #7 tablet 11/29/19 History of Present Illiness History of Present Illness: ADÁN CHEUNG is a 53 year old male This is a 53-year-old maleWith a history of the chronic respiratory failure COPD oxygen dependent trilogy machine at home and very noncompliance admitted in the hospital because of the chronic respiratory failure COPD acute exacerbations Patient initially admitted to the hospitalist service switched to them my service Hospital Course Hospital Course: This is a 53-year-old male's as usual with a chronic respiratory failure currently on a BiPAP or trilogy machine at home with a very noncompliance currently on oxygen dependence COPD chronic smoker came to the emergency departments because of the shortness of the breath Patient several time admissions due to the chronic smoker noncompliance with a chronic respiratory failure patient is put on a BiPAP respiratory treatments steroids and IV antibiotics CT of the chest was negative patient otherwise responds very well patient is back to the baseline currently using the BiPAP at nighttime especially when he lay down and oxygen's and currently all stable patients discharged to go home's Patient is walking the hallway with the oxygen's without any problems p.o. intake is good Discussed with the patient about smoking counseling again and again compliance with the trilogy machine and compliance with the oxygen's Physical Exam Vital Signs: Temp Pulse Resp BP Pulse Ox 97.7 F 59 L 15 104/60 99 11/29/19 07:34 11/29/19 07:34 11/29/19 07:34 11/29/19 07:34 11/29/19 07:34 Intake & Output 11/28/19 11/29/19 11/30/19 06:59 06:59 06:59 Intake Total 1412 1390 Output Total 2080 2450 Balance -668 -1060 Weight 99.4 kg 98.3 kg General appearance: PRESENT: no acute distress, well-developed, well-nourished Head exam: PRESENT: atraumatic, normocephalic Eye exam: PRESENT: conjunctiva pink, EOMI, PERRLA. ABSENT: scleral icterus Ear exam: PRESENT: normal external ear exam Mouth exam: PRESENT: moist, tongue midline Neck exam: ABSENT: carotid bruit, JVD, lymphadenopathy, thyromegaly Respiratory exam: PRESENT: clear to auscultation [place]. ABSENT: rales, rhonchi, wheezes Cardiovascular exam: PRESENT: RRR. ABSENT: diastolic murmur, rubs, systolic murmur Pulses: PRESENT: normal dorsalis pedis pul Vascular exam: PRESENT: normal capillary refill GI/Abdominal exam: PRESENT: normal bowel sounds, soft. ABSENT: distended, guarding, mass, organolmegaly, rebound, tenderness Rectal exam: PRESENT: deferred Extremities exam: PRESENT: full ROM. ABSENT: calf tenderness, clubbing, pedal e [place] Neurological exam: PRESENT: alert, awake, oriented to person, oriented to place, oriented to time, oriented to situation, CN II-XII grossly intact. ABSENT: motor sensory deficit Psychiatric exam: PRESENT: appropriate affect, normal mood. ABSENT: homicidal ideation, suicidal ideation Skin exam: PRESENT: dry, intact, warm. ABSENT: cyanosis, rash Results Laboratory Results: WBC 10.9 10^3/uL (4.0-10.5) H 11/27/19 05:34 RBC 4.03 10^6/uL (4.35-5.55) L 11/27/19 05:34 Hgb 12.6 g/dL (13.5-17.0) L 11/27/19 05:34 Hct 37.0 % (37.9-51.0) L 11/27/19 05:34 MCV 92 fl (80-97) 11/27/19 05:34 MCH 31.3 pg (27.0-33.4) 11/27/19 05:34 MCHC 34.1 g/dL (32.0-36.0) 11/27/19 05:34 RDW 15.7 % (11.5-14.0) H 11/27/19 05:34 Plt Count 167 10^3/uL (150-450) 11/27/19 05:34 Lymph % (Auto) Not Reportable 11/27/19 05:34 [place] % (Auto) Not Reportable 11/27/19 05:34 Eos % (Auto) Not Reportable 11/27/19 05:34 Baso % (Auto) Not Reportable 11/27/19 05:34 Absolute Neuts (auto) Not Reportable 11/27/19 05:34 Absolute Lymphs (auto) Not Reportable 11/27/19 05:34 Absolute Monos (auto) Not Reportable 11/27/19 05:34 Absolute Eos (auto) Not Reportable 11/27/19 05:34 Absolute Basos (auto) Not Reportable 11/27/19 05:34 Total Counted 100 11/27/19 05:34 Seg Neutrophils % Not Reportable 11/27/19 05:34 Seg Neuts % (Manual) 88 % (42-78) H 11/27/19 05:34 Band Neutrophils % 1 % (3-5) L 11/27/19 05:34 Lymphocytes % (Manual) 8 % (13-45) L 11/27/19 05:34 Monocytes % (Manual) 3 % (3-13) 11/27/19 05:34 Eosinophils % (Manual) 0 % (0-6) 11/27/19 05:34 Basophils % (Manual) 0 % (0-2) 11/27/19 05:34 Abs Neuts (Manual) 9.7 10^3/uL (1.7-8.2) H 11/27/19 05:34 Abs Lymphs (Manual) 0.9 10^3/uL (0.5-4.7) 11/27/19 05:34 Abs Monocytes (Manual) 0.3 10^3/uL (0.1-1.4) 11/27/19 05:34 Absolute Eos (Manual) 0.0 10^3/uL (0.0-0.6) 11/27/19 05:34 Abs Basophils (Manual) 0.0 10^3/uL (0.0-0.2) 11/27/19 05:34 Platelet Comment ADEQUATE 11/27/19 05:34 RBC Morph Comment NORMO-CYTIC/CHROMIC 11/27/19 05:34 Carbonic Acid 1.24 mmol/L (1.05-1.35) 11/27/19 06:25 HCO3/H2CO3 Ratio 19:1 11/27/19 06:25 ABG pH 7.38 (7.35-7.45) 11/27/19 06:25 ABG pCO2 41.1 mmHg (35-45) 11/27/19 06:25 ABG pO2 92.9 mmHg (80-100) 11/27/19 06:25 ABG HCO3 23.7 mmol/L (20-24) 11/27/19 06:25 ABG Total CO2 25.0 mmol/L (23-27) 11/27/19 06:25 ABG O2 Saturation 97.0 % (94-98) 11/27/19 06:25 ABG Base Excess -1.3 mmol/L 11/27/19 06:25 VBG pH 7.19 (7.30-7.42) L* 11/25/19 12:40 VBG pCO2 92.3 mmHg (35-63) H* 11/25/19 12:40 VBG HCO3 34.7 mmol/L (20-32) H 11/25/19 12:40 VBG Base Excess 3.1 mmol/L 11/25/19 12:40 FiO2 40% 11/27/19 06:25 Sodium 132.4 mmol/L (137-145) L 11/29/19 05:18 Potassium 4.2 mmol/L (3.6-5.0) 11/29/19 05:18 Chloride 98 mmol/L (98-107) 11/29/19 05:18 Carbon Dioxide 30 mmol/L (22-30) 11/29/19 05:18 Anion Gap 5 (5-19) 11/29/19 05:18 BUN 35 mg/dL (7-20) H 11/29/19 05:18 Creatinine 0.85 mg/dL (0.52-1.25) 11/29/19 05:18 Est GFR ( Amer) > 60 (>60) 11/29/19 05:18 Est GFR (MDRD) Non-Af > 60 (>60) 11/29/19 05:18 Glucose 88 mg/dL (75-110) 11/29/19 05:18 POC Glucose 97 mg/dL (70-110) 11/29/19 08:05 Hemoglobin A1c % 8.5 % (4.7-6.0) H 11/26/19 04:26 Lactic Acid 1.1 mmol/L (0.7-2.1) 11/25/19 12:40 Calcium 8.2 mg/dL (8.4-10.2) L 11/29/19 05:18 Magnesium 2.3 mg/dL (1.6-2.3) 11/26/19 04:26 Total Bilirubin 0.3 mg/dL (0.2-1.3) 11/26/19 04:26 Direct Bilirubin 0.0 mg/dL (0.0-0.4) 11/26/19 04:26 Neonat Total Bilirubin Not Reportable 11/26/19 04:26 Neonat Direct Bilirubin Not Reportable 11/26/19 04:26 Neonat Indirect Bili Not Reportable 11/26/19 04:26 AST 15 U/L (17-59) L 11/26/19 04:26 ALT 22 U/L (<50) 11/26/19 04:26 Alkaline Phosphatase 58 U/L (38-126) 11/26/19 04:26 Creatine Kinase 58 U/L (55-170) 11/26/19 04:26 CK-MB (CK-2) 3.36 ng/mL (<4.55) 11/25/19 12:40 Troponin I < 0.012 ng/mL 11/26/19 04:26 NT-Pro-B Natriuret Pep 171 pg/mL (<125) H 11/26/19 04:26 Total Protein 5.6 g/dL (6.3-8.2) L 11/26/19 04:26 Albumin 3.4 g/dL (3.5-5.0) L 11/26/19 04:26 Triglycerides 114 mg/dL (<150) 11/26/19 04:26 Cholesterol 133.37 mg/dL (0-200) 11/26/19 04:26 LDL Cholesterol Direct 51 mg/dL (<100) 11/26/19 04:26 VLDL Cholesterol 23.0 mg/dL (10-31) 11/26/19 04:26 HDL Cholesterol 77 mg/dL (>40) 11/26/19 04:26 TSH 0.11 uIU/mL (0.47-4.68) L 11/26/19 04:26 Urine Color STRAW 11/25/19 13:56 Urine Appearance CLEAR 11/25/19 13:56 Urine pH 5.0 (5.0-9.0) 11/25/19 13:56 Ur Specific [place] 1.017 11/25/19 13:56 Urine Protein NEGATIVE mg/dL (NEGATIVE) 11/25/19 13:56 Urine Glucose (UA) >=500 mg/dL (NEGATIVE) H 11/25/19 13:56 Urine Ketones NEGATIVE mg/dL (NEGATIVE) 11/25/19 13:56 Urine Blood SMALL (NEGATIVE) H 11/25/19 13:56 Urine Nitrite NEGATIVE (NEGATIVE) 11/25/19 13:56 Urine Bilirubin NEGATIVE (NEGATIVE) 11/25/19 13:56 Urine Urobilinogen NEGATIVE mg/dL (<2.0) 11/25/19 13:56 Ur Leukocyte Esterase NEGATIVE (NEGATIVE) 11/25/19 13:56 Urine Mucus (Auto) RARE /LPF 11/25/19 13:56 Urine Ascorbic Acid NEGATIVE (NEGATIVE) 11/25/19 13:56 Urine Opiates Screen NEGATIVE 11/25/19 13:56 Urine Methadone Screen NEGATIVE 11/25/19 13:56 Ur Barbiturates Screen NEGATIVE 11/25/19 13:56 Ur Phencyclidine Scrn NEGATIVE 11/25/19 13:56 Ur Amphetamines Screen NEGATIVE 11/25/19 13:56 U Benzodiazepines Scrn NEGATIVE 11/25/19 13:56 Urine Cocaine Screen NEGATIVE 11/25/19 13:56 U Marijuana (THC) Screen NEGATIVE 11/25/19 13:56 Influenza A (Rapid) NEGATIVE (NEGATIVE) 11/25/19 14:05 Influenza B (Rapid) NEGATIVE (NEGATIVE) 11/25/19 14:05 11/25/19 11/25/19 11/25/19 12:40 18:42 22:09 CK-MB (CK-2) 3.36 Troponin I < 0.012 < 0.012 < 0.012 NT-Pro-B Natriuret Pep 130 H 11/26/19 04:26 CK-MB (CK-2) Troponin I < 0.012 NT-Pro-B Natriuret Pep 171 H Impressions: Chest CT 11/25/19 00:00 IMPRESSION: NO SIGNIFICANT FINDING ON NON-CONTRASTED CHEST CT. Chest X-Ray 11/25/19 12:42 IMPRESSION: Pleural thickening versus small left effusion. Plan Time Spent: Greater than 30 Minutes - Follow in office in 2 weeks Stroke Is this a Stroke Patient?: No Acute Heart Failure - Is this a Heart Failure Patient?: No
[2019-11-29] MEDS: DILTIAZEM HCL 120 MG CAP.SR.24H PO SCH (09:07)
[2019-11-29] MEDS: TAMSULOSIN HCL 0.4 MG CAP.SR.24H PO SCH (09:07)
[2019-11-29] MEDS: ASPIRIN 81 MG TABLET, ENT COATED PO SCH (09:07)
[2019-11-29] MEDS: FUROSEMIDE 20 MG TABLET PO SCH (09:07)
[2019-11-29] MEDS: PREDNISONE 10 MG TABLET PO SCH (09:07)
[2019-11-29] MEDS: LEVOFLOXACIN 500 MG TABLET PO SCH (09:07)
[2019-11-29] MEDS: INSULIN GLARGINE,HUM.REC.ANLOG 1,000 UNIT/10 ML VIAL SUBCUT SCH (09:08)
[2019-11-29] MEDS: ENOXAPARIN SODIUM INJ 40 MG/0.4 ML DISP.SYRIN SUBCUT SCH (09:08)
[2019-11-29] MEDS ORDERED: FLUTICASONE/UMECLIDIN/VILANTER 100-62.5-25 MCG/DOSE IH SCH (10:00)
== END 2019-11-29 10:05 | disposition home health service (06) | DRG 189 ==
LOC: ER 12:32 → EH 16:24 → 3W 18:00
PROVIDERS: ADMIT Family Medicine; ATTEND Family Medicine
DX: J96.20 Acute and chronic respiratory failure, unspecified whether with hypoxia or hypercapnia (principal); J44.1 Chronic obstructive pulmonary disease with (acute) exacerbation; Z99.81 Dependence on supplemental oxygen; I50.9 Heart failure, unspecified; E78.00 Pure hypercholesterolemia, unspecified; I11.0 Hypertensive heart disease with heart failure; E11.9 Type 2 diabetes mellitus without complications; G47.30 Sleep apnea, unspecified; S91.209A Unspecified open wound of unspecified toe(s) with damage to nail, initial encounter; E66.01 Morbid (severe) obesity due to excess calories; W19.XXXA Unspecified fall, initial encounter; Y93.89 Activity, other specified; Y92.018 Other place in single-family (private) house as the place of occurrence of the external cause; Z68.39 Body mass index [BMI] 39.0-39.9, adult; Z60.2 Problems related to living alone; Z88.1 Allergy status to other antibiotic agents; Z91.041 Radiographic dye allergy status; Z88.0 Allergy status to penicillin; Z91.018 Allergy to other foods; I25.2 Old myocardial infarction; Z79.84 Long term (current) use of oral hypoglycemic drugs; Z79.82 Long term (current) use of aspirin; Z79.4 Long term (current) use of insulin; Z79.51 Long term (current) use of inhaled steroids; Z79.52 Long term (current) use of systemic steroids; Z79.899 Other long term (current) drug therapy
CPT/HCPCS: 36415; 36600; 71045; 71250; 80048; 80053; 80061; 80307; 81001; 82550; 82553; 82803; 82962; 83036; 83605; 83735; 83880; 84443; 84484; 85025; 87040; 87804; 93005; 93010; 94640; 94660; 96374; 99285; J1650; J1815; J1956; J2920; J2930; J3490; J7512; J7620

== ENCOUNTER 2020-02-06 13:51 | Inpatient (IN) | payer MEDICARE, MEDICAID ==
--- NOTE | 2020-02-06 14:26 | ER Document Report ---
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 States he has been having difficulties with increased shortness of breath and increased work of breathing since this morning. He is done 3 nebulizer treatments at home and he continued to be dyspneic, EMS was called. The patient was placed on CPAP and given a DuoNeb. Patient states she has had a cough for the past 2 to 3 days which is productive of yellow sputum. He denies fever or known contact with coronavirus positive individuals. TRAVEL OUTSIDE OF THE [place] IN LAST 30 DAYS: No - Related Data Allergies/Adverse Reactions: amoxicillin [Amoxicillin] Adverse Reaction (Verified 02/06/20 14:08) Hives Iodinated Contrast Media [IV Dye, Iodine Containing] Adverse Reaction (Verified 02/06/20 14:08) Hives Penicillins Adverse Reaction (Verified 02/06/20 14:08) Hives Apricots Adverse Reaction (Mild, Uncoded 02/06/20 14:08) Hives Past Medical History - Social History Smoking Status: Current Some Day Smoker Family History: Reviewed & Not Pertinent, COPD, Hypertension Patient has homicidal ideation: No - Past Medical History Cardiac Medical History: Reports: Hx Congestive Heart Failure, Hx Heart Attack - 2018, Hx Hypercholesterolemia, Hx Hypertension Denies: Hx Coronary Artery Disease Pulmonary Medical History: Reports: Hx Asthma, Hx Bronchitis, Hx COPD, Hx Pneumonia Denies: Hx Tuberculosis Neurological Medical History: Denies: Hx Cerebrovascular Accident, Hx Migraine, Hx Seizures Endocrine Medical History: Reports: Hx Diabetes Mellitus Type 2 Renal/ Medical History: Denies: Hx Peritoneal Dialysis GI Medical History: Denies: Hx Cirrhosis, Hx Crohn's Disease, Hx Ulcerative Colitis Musculoskeletal Medical History: Denies Hx Arthritis Skin Medical History: Denies Hx Psoriasis Psychiatric Medical History: Reports: Hx Depression Traumatic Medical History: Denies: Hx Gunshot Wound, Hx Pneumothorax, Hx Traumatic Brain Injury Infectious Medical History: Denies: Hx HIV Past Surgical History: Reports: Hx Abdominal Surgery - hernia repair, Hx Cardiac Catheterization, Hx Cholecystectomy, Hx Orthopedic Surgery - R foot, Hx Tonsillectomy - Immunizations Hx Diphtheria, Pertussis, Tetanus Vaccination: Yes Hx Pneumococcal Vaccination: 04/20/13 Review of Systems - Review of Systems Notes: Constitutional: Negative for fever. HENT: Negative for sore throat. Eyes: Negative for visual changes. Cardiovascular: Negative for chest pain. Respiratory: + Shortness of breath, + cough, + wheezing Gastrointestinal: Negative for abdominal pain, vomiting or diarrhea. Genitourinary: Negative for dysuria. Musculoskeletal: Negative for back pain. Skin: Negative for rash. Neurological: Negative for headaches, weakness or numbness. 10 point ROS negative except as marked above and in HPI. Physical Exam - Vital signs Vitals: Resp BP Pulse Ox 25 H 130/70 H 100 02/06/20 14:03 02/06/20 14:03 02/06/20 14:03 - Notes Notes: PHYSICAL EXAMINATION: Physical Exam: General: Obese 54-year-old man in no acute distress HEENT: NC/AT, pupils equal round and reactive to light, MM moist,nares clear, oropharynx clear, airway patent Neck: supple, no adenopathy, no masses. Good range of motion Lungs: Good air movement, bibasilar crackles, mild wheezing, prolonged expiratory phase CVS: Regular rate and rhythm no murmur gallop or rub Abdomen: Soft, active, nontender, no masses, no hepatosplenomegaly Ext: No edema, clubbing or cyanosis. Neuro: Alert and responsive, moving all 4 extremities on command, cranial nerves intact, no focal findings Skin: Intact no open lesions, no rash Course - Re-evaluation Re-evalutation: 02/06/20 16:30 54-year-old COPD patient home O2, home CPAP, productive cough yellow sputum evaluation reveals bilateral infiltrates questionable pneumonia. Patient has an elevated WBC count, was given Zithromax and Rocephin in the emergency de partment. Nebulizer treatments x3 at home, EMS also gave DuoNeb in route patient placed on BiPAP appears to be doing better O2 sat 96 to 100%. 02/06/20 16:34 Dr. Cline covering for Dr. Kaminski was contacted. He will admit the patient to the IMCU with continued BiPAP treatment and close monitoring. - Vital Signs Vital signs: Temp Pulse Resp BP Pulse Ox 97.2 F 112 H 23 H 130/76 H 94 02/06/20 14:09 02/06/20 14:09 02/06/20 16:00 02/06/20 16:00 02/06/20 16:00 - Laboratory Result Diagrams: 02/06/20 13:53 02/06/20 13:53 Laboratory results interpreted by me: 02/06/20 02/06/20 02/06/20 13:53 13:53 14:56 WBC 14.8 H RBC 4.10 L Hgb 12.8 L Hct 37.7 L RDW 15.5 H Lymph % (Auto) 11.4 L Absolute Neuts (auto) 12.0 H Seg Neutrophils % 81.4 H Carbonic Acid 1.65 H ABG pH 7.29 L ABG pCO2 54.7 H ABG pO2 75.4 L ABG HCO3 25.4 H ABG Total CO2 27.1 H ABG O2 Saturation 93.3 L Sodium 134.5 L Glucose 246 H AST 16 L Alkaline Phosphatase 140 H Urine Glucose (UA) Urine Ketones 02/06/20 14:57 WBC RBC Hgb Hct RDW Lymph % (Auto) Absolute Neuts (auto) Seg Neutrophils % Carbonic Acid ABG pH ABG pCO2 ABG pO2 ABG HCO3 ABG Total CO2 ABG O2 Saturation Sodium Glucose AST Alkaline Phosphatase Urine Glucose (UA) >=500 H Urine Ketones TRACE H - Diagnostic Test Radiology reviewed: Image reviewed, Reports reviewed Radiology results interpreted by me: 02/06/20 16:27 Chest x-ray 1 view: Bibasilar densities? Infiltrate versus atelectasis. - EKG Interpretation by Me EKG shows normal: Sinus rhythm, Intervals - Normal, ST-T Waves - ST or T wave abnormalities, no ischemic changes. Rate: Tachycardia - 105 [place]/QRS: Right axis deviation Critical Care Note - Critical Care Note Total time excluding time spent on procedures (mins): 60 - Critical care time spent obtaining history from patient or surrogate, discussions with consultants, development of treatment plan with patient or surrogate, evaluation of patient's response to treatment, examination of patient, ordering and performing treatments and interventions, ordering and review of laboratory studies, re- evaluation of patient's condition, ordering and review of radiographic studies and review of old charts Discharge - Discharge Clinical Impression: COPD exacerbation, COPD with acute exacerbation, Obesity, Class II, BMI 35- 39.9, Acute and chronic respiratory failure with hypercapnia Pneumonia Qualifiers: Pneumonia type: due to unspecified organism Laterality: bilateral Lung location: unspecified part of lung Qualified Code(s): J18.9 - Pneumonia, unspecified organism Condition: Good Disposition: ADMITTED INPATIENT Admitting Provider: [facility] Admitted: [facility] Referrals: ARTEMIO KAMINSKI MD [Primary Care Provider] - Follow up as needed
--- NOTE | 2020-02-06 14:39 | RADIOLOGY REPORT (SQ) ---
EXAM DESCRIPTION: CHEST SINGLE VIEW IMAGES COMPLETED DATE/TIME: 02/06/2020 2:23 pm REASON FOR STUDY: shortness of breath COMPARISON: Chest x-ray 11/25/2019, 11/04/2019. CT chest 11/25/2019. EXAM PARAMETERS: NUMBER OF VIEWS: One view. TECHNIQUE: 2 frontal radiographic views of the chest acquired. RADIATION DOSE: NA LIMITATIONS: None. FINDINGS: LUNGS AND PLEURA: There are bibasilar airspace opacities. No sizable pleural effusion or pneumothorax. MEDIASTINUM AND HILAR STRUCTURES: No masses. Contour normal. HEART AND VASCULAR STRUCTURES: Heart normal in size. Normal vasculature. BONES: No acute findings. HARDWARE: None in the chest. IMPRESSION: Bibasilar airspace opacities, may be secondary to atelectasis or pneumonia. TECHNICAL DOCUMENTATION: JOB ID: [id number] 2010 [employer]- All Rights Reserved Reading location - IP/workstation name: [email or web address]
[2020-02-06 14:43] LABS: ABSOLUTE BASOPHILS # (AUTO) 0.1 10^3/uL (0.0-0.2); ABSOLUTE EOSINOPHILS # (AUTO) 0.1 10^3/uL (0.0-0.6); ABSOLUTE LYMPHOCYTES (AUTO) 1.7 10^3/uL (0.5-4.7); ABSOLUTE MONOCYTES (AUTO) 0.9 10^3/uL (0.1-1.4); BASOPHILS % (AUTO) 0.5 % (0-2); EOSINOPHILS % (AUTO) 0.6 % (0-6); HEMATOCRIT 37.7 % (37.9-51.0); HEMOGLOBIN 12.8 g/dL (13.5-17.0); LYMPHOCYTES % (AUTO) 11.4 % (13-45); MEAN CORPUSCULAR HEMOGLOBIN 31.1 pg (27.0-33.4); MEAN CORPUSCULAR HGB CONC 33.9 g/dL (32.0-36.0); MEAN CORPUSCULAR VOLUME 92 fl (80-97); MONOCYTES % (AUTO) 6.1 % (3-13); PLATELET COUNT 215 10^3/uL (150-450); RED CELL DISTRIBUTION WIDTH 15.5 % (11.5-14.0); SEGMENTED NEUTROPHILS % (AUTO) 81.4 % (42-78); TOTAL CELLS COUNTED % (AUTO) 100 %; WHITE BLOOD COUNT 14.8 10^3/uL (4.0-10.5)
[2020-02-06 15:17] LABS: APPEARANCE,URINE CLEAR; BILIRUBIN,URINE NEGATIVE (NEGATIVE); COLOR,URINE YELLOW; GLUCOSE, URINE >=500 mg/dL (NEGATIVE); KETONES,URINE TRACE mg/dL (NEGATIVE); LEUKOCYTE ESTERASE,URINE NEGATIVE (NEGATIVE); NITRITE,URINE NEGATIVE (NEGATIVE); PROTEIN,URINE NEGATIVE (NEGATIVE); URINE SPECIFIC GRAVITY 1.017; UROBILINOGEN,URINE NEGATIVE mg/dL (<2.0)
[2020-02-06 15:18] LABS: ARTERIAL BLOOD BASE EXCESS -1.9 mmol/L; ARTERIAL BLOOD H2CO3 1.65 mmol/L (1.05-1.35); ARTERIAL BLOOD HCO3 25.4 mmol/L (20-24); ARTERIAL BLOOD O2 SATURATION 93.3 % (94-98); ARTERIAL BLOOD PCO2 54.7 mmHg (35-45); ARTERIAL BLOOD PH 7.29 (7.35-7.45); ARTERIAL BLOOD PO2 75.4 mmHg (80-100); ARTERIAL BLOOD TOTAL CO2 27.1 mmol/L (23-27)
[2020-02-06 15:19] LABS: ARTERIAL BLOOD FIO2 40%
[2020-02-06 15:21] LABS: ALBUMIN 4.6 g/dL (3.5-5.0); ALKALINE PHOSPHATASE 140 U/L (38-126); ANION GAP 10 (5-19); ASPARTATE AMINO TRANSFERASE 16 U/L (17-59); BILIRUBIN,TOTAL 0.4 mg/dL (0.2-1.3); BLOOD UREA NITROGEN 20 mg/dL (7-20); CALCIUM 9.5 mg/dL (8.4-10.2); CARBON DIOXIDE 25 mmol/L (22-30); CHLORIDE 100 mmol/L (98-107); GLUCOSE 246 mg/dL (75-110); POTASSIUM 4.6 mmol/L (3.6-5.0)
[2020-02-06] MEDS ORDERED: IPRATROPIUM/ALBUTEROL 0.5-2.5 MG/3 ML AMPUL NEB ONE (16:16)
[2020-02-06] MEDS ORDERED: CEFTRIAXONE 1 GM/D5W RTU 1 GM/50 ML RTUPB IV ONE (16:21)
[2020-02-06] MEDS ORDERED: AZITHROMYCIN INJ 500 MG VIAL IV ONE (16:21)
[2020-02-06] MEDS ORDERED: METHYLPREDNISOLONE INJ 125 MG/2 ML SDV IV ONE ×2 (16:37→20:45)
[2020-02-06] MEDS ORDERED: IPRATROPIUM BROMIDE 0.02% NEB 0.5 MG/2.5 ML AMPUL NEB PRN (19:31)
[2020-02-06] MEDS ORDERED: ACETAMINOPHEN 325 MG TABLET PO PRN (19:31)
[2020-02-06] MEDS ORDERED: DEXTROSE 50%-WATER SYRINGE 12.5 GM/25 ML DOSE IV PRN (20:00)
[2020-02-06] MEDS ORDERED: DEXTROSE 40% GEL 15 GM TUBE PO PRN (20:00)
[2020-02-06] MEDS ORDERED: DEXTROSE 50%-WATER SYRINGE 25 GM/50 ML DOSE IV PRN (20:00)
[2020-02-06] MEDS ORDERED: GLUCAGON,HUMAN RECOMB 1 MG INJ IM PRN (20:00)
[2020-02-06] MEDS ORDERED: DEXTROSE 40% GEL 15 GM TUBE X 2 PO PRN (20:00)
[2020-02-06] MEDS ORDERED: AZTREONAM 1 GM in DEXTROSE 5%-WATER 50 ML IV SCH (20:00)
[2020-02-06] MEDS ORDERED: AZTREONAM INJ 1 GM VIAL IV SCH (20:30)
[2020-02-06] MEDS ORDERED: LEVOFLOXACIN 750 MG/D5W RTU 750 MG/150 ML RTUPB IV ONE (21:00)
[2020-02-06] MEDS: ENOXAPARIN SODIUM INJ 40 MG/0.4 ML DISP.SYRIN SUBCUT SCH (21:30)
[2020-02-06] MEDS ORDERED: AZTREONAM INJ 1 GM VIAL ONE (21:43)
[2020-02-06] MEDS ORDERED: AZTREONAM 1 GM in DEXTROSE 5%-WATER 50 ML IV ONE (22:00)
[2020-02-07 05:35] LABS: ABSOLUTE LYMPHOCYTES (AUTO) 0.5 10^3/uL (0.5-4.7); ABSOLUTE NEUT (AUTO) 6.1 10^3/uL (1.7-8.2); BASOPHILS % (AUTO) 0.2 % (0-2); EOSINOPHILS % (AUTO) 0.1 % (0-6); HEMATOCRIT 36.6 % (37.9-51.0); HEMOGLOBIN 12.2 g/dL (13.5-17.0); LYMPHOCYTES % (AUTO) 7.3 % (13-45); MEAN CORPUSCULAR HEMOGLOBIN 30.5 pg (27.0-33.4); MEAN CORPUSCULAR HGB CONC 33.4 g/dL (32.0-36.0); MEAN CORPUSCULAR VOLUME 91 fl (80-97); MONOCYTES % (AUTO) 0.7 % (3-13); PLATELET COUNT 161 10^3/uL (150-450); RED BLOOD COUNT 4.01 10^6/uL (4.35-5.55); RED CELL DISTRIBUTION WIDTH 15.2 % (11.5-14.0); SEGMENTED NEUTROPHILS % (AUTO) 91.7 % (42-78); TOTAL CELLS COUNTED % (AUTO) 100 %; WHITE BLOOD COUNT 6.6 10^3/uL (4.0-10.5)
[2020-02-07] MEDS ORDERED: AZTREONAM INJ 1 GM VIAL ONE (05:54)
[2020-02-07 05:56] LABS: ALBUMIN 3.9 g/dL (3.5-5.0); ALKALINE PHOSPHATASE 109 U/L (38-126); ANION GAP 6 (5-19); ASPARTATE AMINO TRANSFERASE 14 U/L (17-59); BILIRUBIN,TOTAL 0.4 mg/dL (0.2-1.3); BLOOD UREA NITROGEN 20 mg/dL (7-20); CARBON DIOXIDE 28 mmol/L (22-30); CHLORIDE 100 mmol/L (98-107); CREATINE KINASE 58 U/L (55-170); GLUCOSE 237 mg/dL (75-110); POTASSIUM 5.4 mmol/L (3.6-5.0); TOTAL PROTEIN 6.1 g/dL (6.3-8.2)
[2020-02-07] MEDS ORDERED: METHYLPREDNISOLONE INJ 125 MG/2 ML SDV IV SCH ×2 (06:00→14:00)
[2020-02-07 06:04] LABS: CREATINE KINASE MB 3.28 ng/mL (<4.55)
[2020-02-07 06:07] LABS: TROPONIN I < 0.012 ng/mL
[2020-02-07] MEDS: AZTREONAM 1 GM in DEXTROSE 5%-WATER 50 ML IV SCH ×3 (06:07→22:20)
[2020-02-07] MEDS: PANTOPRAZOLE SODIUM 20 MG TABLET.DR PO SCH (06:07)
--- NOTE | 2020-02-07 07:56 | EKG REPORT ---
SEVERITY:- OTHERWISE NORMAL ECG - SINUS TACHYCARDIA BORDERLINE RIGHT AXIS DEVIATION : Confirmed by: Keaton Manning 07-Feb-2020 07:55:56
[2020-02-07 08:22] LABS: APPEARANCE,URINE CLEAR; BILIRUBIN,URINE NEGATIVE (NEGATIVE); COLOR,URINE YELLOW; GLUCOSE, URINE >=500 mg/dL (NEGATIVE); KETONES,URINE TRACE mg/dL (NEGATIVE); LEUKOCYTE ESTERASE,URINE NEGATIVE (NEGATIVE); NITRITE,URINE NEGATIVE (NEGATIVE); PROTEIN,URINE 30 mg/dL (NEGATIVE); URINE SPECIFIC GRAVITY 1.023; UROBILINOGEN,URINE NEGATIVE mg/dL (<2.0)
[2020-02-07] MEDS: INSULIN LISPRO 100 UNIT/ML 3 ML VIAL SUBCUT SCH ×4 (08:52→21:51)
--- NOTE | 2020-02-07 10:31 | PDOC H&P ---
History of Present Illness Admission Date/PCP: 02/06/20 17:35 ARTEMIO KAMINSKI MD Patient complains of: Shortness of the breath History of Present Illness: ADÁN CHEUNG is a 54 year old male This is a 54-year-old male with a significant history of the COPD oxygen d ependence currently using the trilogy at night with a chronic respiratory failure multiple hospital admissions due to noncompliance to using the trilogyCame to the emergency department with increasing some cough congestion and shortness of the breath since last several days patient's call the EMS yoshi sequeiraalondra was put on CPAP and brought to the ER Patient's initial work-up including the chest x-ray shows a questionable pneumonia and COPD acute exacerbation respiratory failure and decided to admit in the hospitals When I saw the patient in the floor patient is alert awake oriented eating the breakfast without any distressed on a nasal cannula Patients did not go anywhere since last hospital admissions to outside did not have any contact with any COVID Patient's denied any chest pain No fever Received IV antibiotics and a nebulizer treatment and IV steroids Past Medical History Cardiac Medical History: Reports: Congestive Heart Failure, Myocardial Infarc tion - 2017, Hyperlipidema, Hypertension Denies: Coronary Artery Disease Pulmonary Medical History: Reports: Asthma, Bronchitis, Chronic Obstructive Pulmonary Disease (COPD), Pneumonia Denies: Tuberculosis Neurological Medical History: Denies: Migraine, Seizures Endocrine Medical History: Reports: Diabetes Mellitus Type 2 GI Medical History: Denies: Cirrhosis, Crohn's Disease, Ulcerative Colitis Musculoskeltal Medical History: Denies: Arthritis Skin Medical History: Denies: Psoriasis Psychiatric Medical History: Reports: Depression Traumatic Medical History: Denies: Gunshot Wound, Pneumothorax, Traumatic Brain Injury Hematology: Denies: Anemia, Hemophilia, Sickle Cell Disease Infectious Medical History: Denies: HIV Past Surgical History Past Surgical History: Reports: Cardiac Catheterization, Cholecystectomy, Orthopedic Surgery - R foot, Tonsillectomy Social History Information Source: Patient Smoking Status: Current Every Day Smoker Cigarettes Packs Per Day: 0.5 Electronic Cigarette use?: No Frequency of Alcohol Use: None Hx Recreational Drug Use: No Drugs: None Hx Prescription Drug Abuse: No Family History Family History: Reviewed & Not Pertinent, COPD, Hypertension Parental Family History Reviewed: Yes Children Family History Reviewed: Yes Sibling(s) Family History Reviewed.: Yes Medication/Allergy Home Medications: Atorvastatin Calcium [Lipitor 40 mg Tablet] 40 mg PO QHS 06/25/19 Diltiazem HCl [Diltiazem 24Hr ER] 120 mg PO DAILY 06/25/19 Empagliflozin [Jardiance] 10 mg PO DAILY 06/25/19 Furosemide [Lasix 20 mg Tablet] 10 mg PO DAILY 06/25/19 Gabapentin [Neurontin 100 mg Capsule] 100 mg PO Q8 06/25/19 Insulin Aspart [Novolog Flexpen] 25 unit SQ MEALS 06/25/19 Ipratropium/Albuterol Sulfate [Combivent Respimat 4 gm Mdi] 1 puff IH QIDP PRN 06/25/19 Lisinopril [Zestril] 2.5 mg PO DAILY 06/25/19 Tamsulosin HCl [Flomax] 0.4 mg PO DAILY 06/25/19 Fluticasone/Umeclidin/Vilanter [Trelegy 100-62.5-25 Mcg Ellipta 14 Dose/Dpi] 1 puff IH DAILY 11/25/19 Budesonide [Pulmicort Neb 0.5 mg/2 ml Ampul] 0.5 mg NEB RTQ12 02/07/20 Fluticasone Propionate [Flonase Nasal [place] 50 Mcg/[place] 16 gm] 1 spray NASL Q12 02/07/20 Allergies/Adverse Reactions: apricot Adverse Reaction (Mild, Verified 02/07/20 07:21) Hives amoxicillin [Amoxicillin] Adverse Reaction (Verified 02/06/20 14:08) Hives Iodinated Contrast Media [IV Dye, Iodine Containing] Adverse Reaction (Verified 02/06/20 14:08) Hives Penicillins Adverse Reaction (Verified 02/06/20 14:08) Hives Review of Systems Constitutional: ABSENT: chills, fever(s), headache(s), weight gain, weight loss Eyes: ABSENT: visual disturbances Ears: ABSENT: hearing changes Cardiovascular: PRESENT: dyspnea on exertion. ABSENT: chest pain, edema, orthropnea, palpitations Respiratory: PRESENT: cough, dyspnea. ABSENT: hemoptysis Gastrointestinal: ABSENT: abdominal pain, constipation, diarrhea, hematemesis, hematochezia, nausea, vomiting Genitourinary: ABSENT: dysuria, hematuria Musculoskeletal: ABSENT: joint swelling Integumentary: ABSENT: rash, wounds Neurological: ABSENT: abnormal gait, abnormal speech, confusion, dizziness, focal weakness, syncope Psychiatric: ABSENT: anxiety, depression, homidical ideation, suicidal ideation Endocrine: ABSENT: cold intolerance, heat intolerance, menstrual abnormalities, polydipsia, polyuria Hematologic/Lymphatic: ABSENT: easy bleeding, easy bruising, lymphadenopathy Physical Exam Vital Signs: Temp Pulse Resp BP Pulse Ox 97.4 F 55 L 27 H 98/68 L 97 02/07/20 07:55 02/07/20 08:11 02/07/20 08:11 02/07/20 07:55 02/07/20 08:11 Intake & Output 02/06/20 02/07/20 02/08/20 06:59 06:59 06:59 Intake Total 422 Output Total 475 Balance -53 Weight 93.6 kg General appearance: PRESENT: no acute distress, well-developed, well-nourished Head exam: PRESENT: atraumatic, normocephalic Eye exam: PRESENT: conjunctiva pink, EOMI, PERRLA. ABSENT: scleral icterus Ear exam: PRESENT: normal external ear exam Mouth exam: PRESENT: moist, tongue midline Neck exam: PRESENT: full ROM. ABSENT: carotid bruit, JVD, lymphadenopathy, thyromegaly Respiratory exam: PRESENT: decreased breath sounds Cardiovascular exam: PRESENT: RRR. ABSENT: diastolic murmur, rubs, systolic murmur Pulses: PRESENT: normal dorsalis pedis pul, +2 pedal pulses bilateral Vascular exam: PRESENT: normal capillary refill GI/Abdominal exam: PRESENT: normal bowel sounds, soft. ABSENT: distended, guarding, mass, organolmegaly, rebound, tenderness Rectal exam: PRESENT: deferred Neurological exam: PRESENT: alert, awake, oriented to person, oriented to place, oriented to time, oriented to situation, CN II-XII grossly intact. ABSENT: motor sensory deficit Psychiatric exam: PRESENT: appropriate affect, normal mood. ABSENT: homicidal ideation, suicidal ideation Skin exam: PRESENT: dry, intact, warm. ABSENT: cyanosis, rash Results Laboratory Results: 02/07/20 04:56 02/07/20 04:56 02/06/20 02/06/20 02/06/20 13:53 13:53 14:56 WBC 14.8 H RBC 4.10 L Hgb 12.8 L Hct 37.7 L MCV 92 MCH 31.1 MCHC 33.9 RDW 15.5 H Plt Count 215 Seg Neutrophils % 81.4 H Carbonic Acid 1.65 H HCO3/H2CO3 Ratio 15:1 ABG pH 7.29 L ABG pCO2 54.7 H ABG pO2 75.4 L ABG HCO3 25.4 H ABG O2 Saturation 93.3 L ABG Base Excess -1.9 FiO2 40% Sodium 134.5 L Potassium 4.6 Chloride 100 Carbon Dioxide 25 Anion Gap 10 BUN 20 Creatinine 0.79 Est GFR ( Amer) > 60 Glucose 246 H Calcium 9.5 Total Bilirubin 0.4 AST 16 L Alkaline Phosphatase 140 H Total Protein 7.0 Albumin 4.6 Urine Color Urine Appearance Urine pH Ur Specific [place] Urine Protein Urine Glucose (UA) Urine Ketones Urine Blood Urine Nitrite Ur Leukocyte Esterase Urine WBC (Auto) Urine RBC (Auto) 02/06/20 02/07/20 02/07/20 14:57 04:56 04:56 WBC 6.6 RBC 4.01 L Hgb 12.2 L Hct 36.6 L MCV 91 MCH 30.5 MCHC 33.4 RDW 15.2 H Plt Count 161 Seg Neutrophils % 91.7 H Carbonic Acid HCO3/H2CO3 Ratio ABG pH ABG pCO2 ABG pO2 ABG HCO3 ABG O2 Saturation ABG Base Excess FiO2 Sodium 134.0 L Potassium 5.4 H Chloride 100 Carbon Dioxide 28 Anion Gap 6 BUN 20 Creatinine 0.76 Est GFR ( Amer) > 60 Glucose 237 H Calcium 9.0 Total Bilirubin 0.4 AST 14 L Alkaline Phosphatase 109 Total Protein 6.1 L Albumin 3.9 Urine Color YELLOW Urine Appearance CLEAR Urine pH 5.0 Ur Specific [place] 1.017 Urine Protein NEGATIVE Urine Glucose (UA) >=500 H Urine Ketones TRACE H Urine Blood NEGATIVE Urine Nitrite NEGATIVE Ur Leukocyte Esterase NEGATIVE Urine WBC (Auto) 1 Urine RBC (Auto) 02/07/20 07:00 WBC RBC Hgb Hct MCV MCH MCHC RDW Plt Count Seg Neutrophils % Carbonic Acid HCO3/H2CO3 Ratio ABG pH ABG pCO2 ABG pO2 ABG HCO3 ABG O2 Saturation ABG Base Excess FiO2 Sodium Potassium Chloride Carbon Dioxide Anion Gap BUN Creatinine Est GFR ( Amer) Glucose Calcium Total Bilirubin AST Alkaline Phosphatase Total Protein Albumin Urine Color YELLOW Urine Appearance CLEAR Urine pH 5.0 Ur Specific [place] 1.023 Urine Protein 30 H Urine Glucose (UA) >=500 H Urine Ketones TRACE H Urine Blood NEGATIVE Urine Nitrite NEGATIVE Ur Leukocyte Esterase NEGATIVE Urine WBC (Auto) 0 Urine RBC (Auto) 0 02/07/20 02/07/20 04:56 04:56 Creatine Kinase 58 CK-MB (CK-2) 3.28 Troponin I < 0.012 Impressions: Chest X-Ray 02/06/20 14:00 IMPRESSION: Bibasilar airspace opacities, may be secondary to atelectasis or pneumonia. Assessment & Plan - Diagnosis (1) Acute and chronic respiratory failure with hypercapnia Is this a current diagnosis for this admission?: Yes Plan: Continues the BiPAP we will consult Dr. Regalado as well patient is very noncompliance to see is an Outpatients to adjust the trilogy (2) COPD exacerbation Is this a current diagnosis for this admission?: Yes Plan: Continues on nebulizer treatments and continues the IV steroids (3) Pneumonia Qualifiers: Pneumonia type: due to unspecified organism Laterality: bilateral Lung location: unspecified part of lung Qualified Code(s): J18.9 - Pneumonia, unspecified organism Is this a current diagnosis for this admission?: Yes Plan: Continues the IV antibiotic (4) Diabetes mellitus type 2 in obese Is this a current diagnosis for this admission?: Yes Plan: Continues a sliding scale with [facility] protocol (5) Hyperlipidemia Qualifiers: Hyperlipidemia type: unspecified Is this a current diagnosis for this admission?: Yes (6) Hypertension Qualifiers: Hypertension type: essential hypertension Is this a current diagnosis for this admission?: Yes (7) Sleep apnea syndrome Qualifiers: Sleep apnea type: unspecified type Is this a current diagnosis for this admission?: Yes - Time Time Spent: 50 to 70 Minutes Medications reviewed and adjusted accordingly: Yes Anticipated discharge: Home Within: Other - Inpatient Certification Based on my medical assessment, after consideration of the patient's comorbidities, presenting symptoms, or acuity I expect that the services needed warrant INPATIENT care.: Yes I certify that my determination is in accordance with my understanding of Medicare's requirements for reasonable and necessary INPATIENT services [42 CFR 412.3e].: Yes Medical Necessity: Significant Comorbidiites Make Outpatient Treatment Too Risky, Need For Continuous Telemetry Monitoring, Need for IV Antibiotics 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
[2020-02-07] MEDS ORDERED: GLUCAGON,HUMAN RECOMB 1 MG INJ IM PRN (11:35)
[2020-02-07] MEDS ORDERED: DEXTROSE 50%-WATER 25 GM/50 ML DISP.SYRIN IV PRN ×2 (11:35)
[2020-02-07] MEDS ORDERED: DEXTROSE 40% GEL 15 GM TUBE PO PRN ×2 (11:35)
[2020-02-07] MEDS: GABAPENTIN 100 MG CAPSULE PO SCH ×2 (13:38→21:50)
[2020-02-07] MEDS: METHYLPREDNISOLONE INJ 125 MG/2 ML SDV IV SCH ×2 (13:39→21:51)
--- NOTE | 2020-02-07 16:01 | PDOC CONSULTATION ---
Consultation Consult Date: 02/07/20 Attending physician:: ARTEMIO KAMINSKI Provider Consulted: DANIEL LYONS Consult reason:: Acute on chronic respiratory failure History of Present Illness Admission Date/PCP: 02/06/20 17:35 ARTEMIO KAMINSKI MD History of Present Illness: ADÁN CHEUNG is a 54 year old male admitted to the hospital for increasing dyspnea refractory to dilators but improved with the BiPAP he admits to cough productive of clear phlegm but denies fevers chills nausea vomiting or diarrhea loss of taste of smell he denies hemoptysis PPD status is negative to date is unknown he has no history of chronic lung disease as a child or adolescent admits to exposure large amounts of passive smoke as a child as well as an adult he himself has smoked 2 packs/day for 40 years but has not smoked in the last several years 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 He has 1 dog no recent travel he denies angina-like chest pain sleeps on 2 pillows occasional PND occasional nocturnal cough admits to edema he admits to snoring restless sleep nocturia 4-5 times per night unrestful sleep and excessive daytime somnolence. Past Medical History Cardiac Medical History: Reports: Congestive Heart Failure, Myocardial Infarction - 2018, Hyperlipidema, Hypertension Denies: Coronary Artery Disease Pulmonary Medical History: Reports: Asthma, Bronchitis, Chronic Obstructive Pulm onary Disease (COPD), Pneumonia Denies: Tuberculosis Neurological Medical History: Denies: Migraine, Seizures Endocrine Medical History: Reports: Diabetes Mellitus Type 2 GI Medical History: Denies: Cirrhosis, Crohn's Disease, Ulcerative Colitis Musculoskeltal Medical History: Denies: Arthritis Skin Medical History: Denies: Psoriasis Psychiatric Medical History: Reports: Depression Traumatic Medical History: Denies: Gunshot Wound, Pneumothorax, Traumatic Brain Injury Hematology: Denies: Anemia, Hemophilia, Sickle Cell Disease Infectious Medical History: Denies: HIV Past Surgical History Past Surgical History: Reports: Cardiac Catheterization, Cholecystectomy, Orthopedic Surgery - R foot, Tonsillectomy Social History Information Source: Patient, [facility] Records 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 Smoking Status: Current Every Day Smoker Cigarettes Packs Per Day: 2 Number of Years Smokin Passive smoke exposure as: Both Frequency of Alcohol Use: None Hx Recreational Drug Use: No Drugs: None Hx Prescription Drug Abuse: No Do you have pets?: Yes Have you had any respiratory illnesses as a child?: No Have you been exposed to any sick contacts recently?: No Have you had any recent respiratory illnesses?: No Have you travelled outside of [place] in the past 12 months?: No Family History Family History: COPD, Hypertension Parental Family History Reviewed: Yes Children Family History Reviewed: Yes Sibling(s) Family History Reviewed.: Yes Medication/Allergy Home Medications: Atorvastatin Calcium [Lipitor 40 mg Tablet] 40 mg PO QHS 06/25/19 Diltiazem HCl [Diltiazem 24Hr ER] 120 mg PO DAILY 06/25/19 Empagliflozin [Jardiance] 10 mg PO DAILY 06/25/19 Furosemide [Lasix 20 mg Tablet] 10 mg PO DAILY 06/25/19 Gabapentin [Neurontin 100 mg Capsule] 100 mg PO Q8 06/25/19 Insulin Aspart [Novolog Flexpen] 25 unit SQ MEALS 06/25/19 Ipratropium/Albuterol Sulfate [Combivent Respimat 4 gm Mdi] 1 puff IH QIDP PRN 06/25/19 Lisinopril [Zestril] 2.5 mg PO DAILY 06/25/19 Tamsulosin HCl [Flomax] 0.4 mg PO DAILY 06/25/19 Fluticasone/Umeclidin/Vilanter [Trelegy 100-62.5-25 Mcg Ellipta 14 Dose/Dpi] 1 puff IH DAILY 11/25/19 Budesonide [Pulmicort Neb 0.5 mg/2 ml Ampul] 0.5 mg NEB RTQ12 02/07/20 Fluticasone Propionate [Flonase Nasal [place] 50 Mcg/[place] 16 gm] 1 spray NASL Q12 02/07/20 Allergies/Adverse Reactions: apricot Adverse Reaction (Mild, Verified 02/07/20 07:21) Hives amoxicillin [Amoxicillin] Adverse Reaction (Verified 02/06/20 14:08) Hives Iodinated Contrast Media [IV Dye, Iodine Containing] Adverse Reaction (Verified 02/06/20 14:08) Hives Penicillins Adverse Reaction (Verified 02/06/20 14:08) Hives Review of Systems All systems: reviewed and no additional remarkable complaints except as stated Physical Exam Vital Signs: Temp Pulse Resp BP Pulse Ox 97.4 F 55 L 27 H 98/68 L 97 02/07/20 07:55 02/07/20 08:11 02/07/20 08:11 02/07/20 07:55 02/07/20 08:11 Intake & Output 02/06/20 02/07/20 02/08/20 06:59 06:59 06:59 Intake Total 422 480 Output Total 475 300 Balance -53 180 Weight 93.6 kg General appearance: PRESENT: no acute distress, cooperative, disheveled, morbidly obese, well-developed, well-nourished Head exam: PRESENT: atraumatic, normocephalic Eye exam: PRESENT: conjunctiva pale, EOMI. ABSENT: nystagmus, periorbital swelling, scleral icterus Mouth exam: PRESENT: dry mucosa, neck supple, tongue midline Teeth exam: PRESENT: poor dentation Neck exam: ABSENT: carotid bruit, full ROM, JVD, lymphadenopathy, meningismus, tenderness, thyromegaly, tracheal deviation, tracheostomy, other Respiratory exam: PRESENT: decreased breath sounds, prolonged expiratory phas, rhonchi, symmetrical, unlabored, wheezes. ABSENT: retraction, stridor, tachypnea Cardiovascular exam: PRESENT: RRR, +S1, +S2. ABSENT: systolic murmur Pulses: PRESENT: normal radial pulses GI/Abdominal exam: PRESENT: soft. ABSENT: distended, guarding, mass, rebound, tenderness Extremities exam: ABSENT: calf tenderness, clubbing, full ROM, joint swelling, pedal edema, tenderness Musculoskeletal exam: ABSENT: deformity, dislocation Neurological exam: PRESENT: alert, awake Psychiatric exam: PRESENT: appropriate affect Skin exam: PRESENT: dry, warm Results Laboratory Results: 02/07/20 04:56 02/07/20 04:56 02/06/20 02/06/20 02/06/20 13:53 13:53 14:56 WBC 14.8 H RBC 4.10 L Hgb 12.8 L Hct 37.7 L MCV 92 MCH 31.1 MCHC 33.9 RDW 15.5 H Plt Count 215 Seg Neutrophils % 81.4 H Carbonic Acid 1.65 H HCO3/H2CO3 Ratio 15:1 ABG pH 7.29 L ABG pCO2 54.7 H ABG pO2 75.4 L ABG HCO3 25.4 H ABG O2 Saturation 93.3 L ABG Base Excess -1.9 FiO2 40% Sodium 134.5 L Potassium 4.6 Chloride 100 Carbon Dioxide 25 Anion Gap 10 BUN 20 Creatinine 0.79 Est GFR ( Amer) > 60 Glucose 246 H Calcium 9.5 Total Bilirubin 0.4 AST 16 L Alkaline Phosphatase 140 H Total Protein 7.0 Albumin 4.6 Urine Color Urine Appearance Urine pH Ur Specific [place] Urine Protein Urine Glucose (UA) Urine Ketones Urine Blood Urine Nitrite Ur Leukocyte Esterase Urine WBC (Auto) Urine RBC (Auto) 02/06/20 02/07/20 02/07/20 14:57 04:56 04:56 WBC 6.6 RBC 4.01 L Hgb 12.2 L Hct 36.6 L MCV 91 MCH 30.5 MCHC 33.4 RDW 15.2 H Plt Count 161 Seg Neutrophils % 91.7 H Carbonic Acid HCO3/H2CO3 Ratio ABG pH ABG pCO2 ABG pO2 ABG HCO3 ABG O2 Saturation ABG Base Excess FiO2 Sodium 134.0 L Potassium 5.4 H Chloride 100 Carbon Dioxide 28 Anion Gap 6 BUN 20 Creatinine 0.76 Est GFR ( Amer) > 60 Glucose 237 H Calcium 9.0 Total Bilirubin 0.4 AST 14 L Alkaline Phosphatase 109 Total Protein 6.1 L Albumin 3.9 Urine Color YELLOW Urine Appearance CLEAR Urine pH 5.0 Ur Specific [place] 1.017 Urine Protein NEGATIVE Urine Glucose (UA) >=500 H Urine Ketones TRACE H Urine Blood NEGATIVE Urine Nitrite NEGATIVE Ur Leukocyte Esterase NEGATIVE Urine WBC (Auto) 1 Urine RBC (Auto) 02/07/20 07:00 WBC RBC Hgb Hct MCV MCH MCHC RDW Plt Count Seg Neutrophils % Carbonic Acid HCO3/H2CO3 Ratio ABG pH ABG pCO2 ABG pO2 ABG HCO3 ABG O2 Saturation ABG Base Excess FiO2 Sodium Potassium Chloride Carbon Dioxide Anion Gap BUN Creatinine Est GFR ( Amer) Glucose Calcium Total Bilirubin AST Alkaline Phosphatase Total Protein Albumin Urine Color YELLOW Urine Appearance CLEAR Urine pH 5.0 Ur Specific [place] 1.023 Urine Protein 30 H Urine Glucose (UA) >=500 H Urine Ketones TRACE H Urine Blood NEGATIVE Urine Nitrite NEGATIVE Ur Leukocyte Esterase NEGATIVE Urine WBC (Auto) 0 Urine RBC (Auto) 0 02/07/20 02/07/20 04:56 04:56 Creatine Kinase 58 CK-MB (CK-2) 3.28 Troponin I < 0.012 Impressions: Chest X-Ray 02/06/20 14:00 IMPRESSION: Bibasilar airspace opacities, may be secondary to atelectasis or pneumonia. Assessment & Plan - Diagnosis (1) Uncontrolled daytime somnolence Is this a current diagnosis for this admission?: Yes Plan: Please schedule sleep study at the time of discharge (2) COPD exacerbation Is this a current diagnosis for this admission?: Yes Plan: Selected Entries 03/16/19 08:34 Fraction of 30 Inspired Oxygen (FIO2) Generic Name Dose Route Start Last Admin Trade Name Freq PRN Reason Stop Dose Admin Levofloxacin/Dextrose 750 mg in 150 mls @ 100 mls/hr 06/25/19 22:00 Levaquin Rtu 750 Mg/D5w 150 Ml Premix IV 07/02/19 21:59 QHS CARMELLA Levofloxacin/Dextrose 750 mg in 150 mls @ 100 mls/hr 02/07/20 22:00 Levaquin Rtu 750 Mg/D5w 150 Ml Premix IV 02/14/20 21:59 QHS CARMELLA Methylprednisolone Sodium Succinate 20 mg 06/25/19 14:00 Solu-Medrol Inj/Pf 40 Mg/1 Ml Sdv IV 07/25/19 13:59 Q8 CARMELLA Albuterol/Ipratropium 3 ml 06/25/19 08:00 06/25/19 08:34 Duoneb 3 Ml Ampul NEB 07/25/19 07:59 3 ml [id number] CARMELLA Budesonide 0.5 mg 02/07/20 20:00 Pulmicort Neb 0.5 Mg/2 Ml Ampul NEB 03/08/20 19:59 RTQ12 CARMELLA Methylprednisolone Sodium Succinate 60 mg 02/07/20 14:00 02/07/20 13:39 Solu-Medrol Inj/Pf 125 Mg/2 Ml Sdv IV 03/08/20 13:59 60 mg Q8 CARMELLA Albuterol 2.5 mg 02/06/20 19:31 Ventolin 0.083% Neb 2.5 Mg/3 Ml Ampul NEB 03/07/20 19:30 RTQ3HP PRN SHORTNESS OF BREATH Ipratropium [place] 0.5 mg 02/06/20 19:31 Atrovent 0.02% Neb 0.5 Mg/2.5 Ml Ampul NEB 03/07/20 19:30 RTQ3HP PRN SHORTNESS OF BREATH Aztreonam 1 gm/ Dextrose 50 mls @ 100 mls/hr 02/07/20 06:00 02/07/20 13:39 IV 02/14/20 05:59 100 mls/hr Q8 CARMELLA (3) Obesity, Class II, BMI 35-39.9 Is this a current diagnosis for this admission?: Yes Plan: Consider nutritional consult (4) Acute and chronic respiratory failure ([id number]) Qualifiers: Respiratory failure complication: hypoxia and hypercapnia Qualified Code(s): J96.21 - Acute and chronic respiratory failure with hypoxia; J96.22 - Acute and chronic respiratory failure with hypercapnia Is this a current diagnosis for this admission?: Yes Plan: Continue noninvasive positive pressure ventilation (5) Dysphagia Is this a current diagnosis for this admission?: Yes Plan: Consider modified barium swallow - Time Time Spent with patient: 55 min Time Spent: 50 to 70 Minutes Smoking Cessation Education: 3 to 10 minutes
[2020-02-07] MEDS: ALBUTEROL SULFATE 0.083% NEB 2.5 MG/3 ML AMPUL NEB PRN (20:17)
[2020-02-07] MEDS: BUDESONIDE NEB 0.5 MG/2 ML AMPUL NEB SCH (20:17)
[2020-02-07] MEDS: ATORVASTATIN CALCIUM 40 MG TABLET PO SCH (21:50)
[2020-02-07] MEDS: ENOXAPARIN SODIUM INJ 40 MG/0.4 ML DISP.SYRIN SUBCUT SCH (21:50)
[2020-02-07] MEDS: FLUTICASONE NASAL SPRAY 50 MCG/SPRY 120 SPRAY/16 GM NASL SCH (21:50)
[2020-02-07] MEDS: INSULIN GLARGINE,HUM.REC.ANLOG 1,000 UNIT/10 ML VIAL SUBCUT SCH (21:52)
[2020-02-07] MEDS: LEVOFLOXACIN 750 MG/D5W RTU 750 MG/150 ML RTUPB IV SCH (21:53)
[2020-02-07] MEDS ORDERED: INSULIN GLARGINE,HUM.REC.ANLOG 1,000 UNIT/10 ML VIAL SUBCUT SCH ×2 (22:00)
[2020-02-08] MEDS: AZTREONAM 1 GM in DEXTROSE 5%-WATER 50 ML IV SCH ×3 (05:22→22:03)
[2020-02-08] MEDS: GABAPENTIN 100 MG CAPSULE PO SCH ×3 (05:22→21:58)
[2020-02-08] MEDS: METHYLPREDNISOLONE INJ 125 MG/2 ML SDV IV SCH (05:23)
[2020-02-08] MEDS: PANTOPRAZOLE SODIUM 20 MG TABLET.DR PO SCH (05:23)
[2020-02-08 07:54] LABS: HEMOGLOBIN 12.1 g/dL (13.5-17.0); MEAN CORPUSCULAR HEMOGLOBIN 30.6 pg (27.0-33.4); MEAN CORPUSCULAR HGB CONC 33.7 g/dL (32.0-36.0); MEAN CORPUSCULAR VOLUME 91 fl (80-97); PLATELET COUNT 172 10^3/uL (150-450); RED BLOOD COUNT 3.96 10^6/uL (4.35-5.55); RED CELL DISTRIBUTION WIDTH 15.5 % (11.5-14.0); WHITE BLOOD COUNT 11.4 10^3/uL (4.0-10.5)
[2020-02-08 08:23] LABS: ABSOLUTE LYMPHOCYTES# (MANUAL) 1.1 10^3/uL (0.5-4.7); ABSOLUTE MONOCYTES # (MANUAL) 0.8 10^3/uL (0.1-1.4); BAND NEUTROPHILS % (MANUAL) 1 % (3-5); BASOPHILS % (MANUAL) 0 % (0-2); EOSINOPHILS % (MANUAL) 0 % (0-6); LYMPHOCYTES % (MANUAL) 7 % (13-45); MONOCYTES % (MANUAL) 7 % (3-13); SEGMENTED NEUTROPHILS % (MAN) 82 % (42-78); TOTAL CELLS COUNTED 100
[2020-02-08 08:24] LABS: ANISOCYTOSIS SLIGHT; POLYCHROMASIA SLIGHT; TOXIC GRANULATION SLIGHT
[2020-02-08 08:25] LABS: PLATELET COMMENT ADEQUATE
[2020-02-08 08:26] LABS: ALBUMIN 3.8 g/dL (3.5-5.0); ALKALINE PHOSPHATASE 96 U/L (38-126); ANION GAP 10 (5-19); ASPARTATE AMINO TRANSFERASE 13 U/L (17-59); BILIRUBIN,TOTAL 0.3 mg/dL (0.2-1.3); BLOOD UREA NITROGEN 33 mg/dL (7-20); CALCIUM 8.7 mg/dL (8.4-10.2); CARBON DIOXIDE 25 mmol/L (22-30); CHLORIDE 98 mmol/L (98-107); GLUCOSE 316 mg/dL (75-110); POTASSIUM 4.3 mmol/L (3.6-5.0); TOTAL PROTEIN 6.1 g/dL (6.3-8.2)
[2020-02-08] MEDS: INSULIN LISPRO 100 UNIT/ML 3 ML VIAL SUBCUT SCH ×4 (08:26→22:02)
[2020-02-08] MEDS: BUDESONIDE NEB 0.5 MG/2 ML AMPUL NEB SCH ×2 (09:02→20:00)
--- NOTE | 2020-02-08 09:17 | PDOC PROGRESS REPORT ---
Subjective Progress Note for:: 02/08/20 Subjective:: Patient is currently doing well Patient's denied any chest pain no short of breath Patient's blood sugar is running high Seen by Dr. Dr. Regalado Reason For Visit: PNEUMONIA,ACUTE COPD EXACERBATION Physical Exam Vital Signs: Temp Pulse Resp BP Pulse Ox 97.6 F 58 L 22 H 132/67 H 97 02/08/20 08:11 02/08/20 09:02 02/08/20 09:02 02/08/20 08:11 02/08/20 09:02 Intake & Output 02/07/20 02/08/20 02/09/20 06:59 06:59 06:59 Intake Total 422 1976 Output Total 475 2200 Balance -53 -224 Weight 93.6 kg 94.1 kg General appearance: PRESENT: no acute distress, well-developed, well-nourished Head exam: PRESENT: atraumatic, normocephalic Eye exam: PRESENT: conjunctiva pink, EOMI, PERRLA. ABSENT: scleral icterus Ear exam: PRESENT: normal external ear exam Mouth exam: PRESENT: moist, tongue midline Neck exam: PRESENT: full ROM. ABSENT: carotid bruit, JVD, lymphadenopathy, thyromegaly Respiratory exam: PRESENT: clear to auscultation allyson Cardiovascular exam: PRESENT: RRR. ABSENT: diastolic murmur, rubs, systolic murmur Pulses: PRESENT: normal dorsalis pedis pul, +2 pedal pulses bilateral Vascular exam: PRESENT: normal capillary refill GI/Abdominal exam: PRESENT: normal bowel sounds, soft. ABSENT: distended, guarding, mass, organolmegaly, rebound, tenderness Rectal exam: PRESENT: deferred Neurological exam: PRESENT: alert, awake, oriented to person, oriented to place, oriented to time, oriented to situation, CN II-XII grossly intact. ABSENT: motor sensory deficit Psychiatric exam: PRESENT: appropriate affect, normal mood. ABSENT: homicidal ideation, suicidal ideation Skin exam: PRESENT: dry, intact, warm. ABSENT: cyanosis, rash Results Laboratory Results: 02/08/20 06:49 02/08/20 06:49 02/08/20 02/08/20 06:49 06:49 WBC 11.4 H RBC 3.96 L Hgb 12.1 L Hct 36.0 L MCV 91 MCH 30.6 MCHC 33.7 RDW 15.5 H Plt Count 172 Seg Neutrophils % Not Reportable Sodium 133.1 L Potassium 4.3 Chloride 98 Carbon Dioxide 25 Anion Gap 10 BUN 33 H Creatinine 1.02 Est GFR ( Amer) > 60 Glucose 316 H Calcium 8.7 Total Bilirubin 0.3 AST 13 L Alkaline Phosphatase 96 Total Protein 6.1 L Albumin 3.8 02/06/20 16:35 Blood Blood Culture (PCR) - Final Staphylococcus Species 02/06/20 16:50 Blood Blood Culture (PCR) - Final Staphylococcus Species 02/07/20 02/07/20 04:56 04:56 Creatine Kinase 58 CK-MB (CK-2) 3.28 Troponin I < 0.012 Impressions: Chest X-Ray 02/06/20 14:00 IMPRESSION: Bibasilar airspace opacities, may be secondary to atelectasis or pneumonia. Assessment & Plan - Diagnosis (1) Acute and chronic respiratory failure with hypercapnia Is this a current diagnosis for this admission?: Yes Plan: Continues the BiPAP (2) COPD exacerbation Is this a current diagnosis for this admission?: Yes Plan: Continues the current medications we will discontinues the IV Solu-Medrol (3) Pneumonia Qualifiers: Pneumonia type: due to unspecified organism Laterality: bilateral Lung location: unspecified part of lung Qualified Code(s): J18.9 - Pneumonia, unspecified organism Is this a current diagnosis for this admission?: Yes Plan: Continues the IV antibiotic (4) Diabetes mellitus type 2 in obese Is this a current diagnosis for this admission?: Yes Plan: Continues to current insulin and sliding scale (5) Hyperlipidemia Qualifiers: Hyperlipidemia type: unspecified Is this a current diagnosis for this admission?: Yes Plan: Currently all stable (6) Hypertension Qualifiers: Hypertension type: essential hypertension Is this a current diagnosis for this admission?: Yes Plan: Currently all stable (7) Sleep apnea syndrome Qualifiers: Sleep apnea type: unspecified type Is this a current diagnosis for this admission?: Yes Plan: stable - Time Time Spent with patient: 15-24 minutes Level of Care: IMCU Medications reviewed and adjusted accordingly: Yes Anticipated discharge: Other Within: Other - Plan Summary Plan Summary: stable
[2020-02-08] MEDS: DILTIAZEM HCL 120 MG CAP.SR.24H PO SCH (09:32)
[2020-02-08] MEDS: FUROSEMIDE 20 MG TABLET PO SCH (09:32)
[2020-02-08] MEDS: TAMSULOSIN HCL 0.4 MG CAP.SR.24H PO SCH (09:32)
[2020-02-08] MEDS: INSULIN GLARGINE,HUM.REC.ANLOG 1,000 UNIT/10 ML VIAL SUBCUT SCH ×2 (09:32→22:02)
[2020-02-08] MEDS: FLUTICASONE NASAL SPRAY 50 MCG/SPRY 120 SPRAY/16 GM NASL SCH ×2 (09:33→22:18)
[2020-02-08] MEDS ORDERED: (PENDING PHARMACY ID) (Diltiazem Hcl [Diltiazem 24hr Er] 120 MG) PO SCH (10:00)
[2020-02-08] MEDS: PREDNISONE 20 MG TABLET PO SCH (17:24)
[2020-02-08] MEDS ORDERED: PREDNISONE 20 MG TABLET PO SCH (18:00)
[2020-02-08] MEDS: ATORVASTATIN CALCIUM 40 MG TABLET PO SCH (21:58)
[2020-02-08] MEDS: ENOXAPARIN SODIUM INJ 40 MG/0.4 ML DISP.SYRIN SUBCUT SCH (22:02)
[2020-02-08] MEDS: LEVOFLOXACIN 750 MG/D5W RTU 750 MG/150 ML RTUPB IV SCH (22:53)
[2020-02-09 04:52] LABS: ABSOLUTE MONOCYTES (AUTO) 0.5 10^3/uL (0.1-1.4); ABSOLUTE NEUT (AUTO) 10.5 10^3/uL (1.7-8.2); BASOPHILS % (AUTO) 0.2 % (0-2); EOSINOPHILS % (AUTO) 0.1 % (0-6); HEMATOCRIT 38.8 % (37.9-51.0); HEMOGLOBIN 13.1 g/dL (13.5-17.0); LYMPHOCYTES % (AUTO) 8.1 % (13-45); MEAN CORPUSCULAR HEMOGLOBIN 30.3 pg (27.0-33.4); MEAN CORPUSCULAR HGB CONC 33.6 g/dL (32.0-36.0); MEAN CORPUSCULAR VOLUME 90 fl (80-97); PLATELET COUNT 166 10^3/uL (150-450); RED BLOOD COUNT 4.31 10^6/uL (4.35-5.55); RED CELL DISTRIBUTION WIDTH 14.9 % (11.5-14.0); SEGMENTED NEUTROPHILS % (AUTO) 87.6 % (42-78); TOTAL CELLS COUNTED % (AUTO) 100 %
[2020-02-09] MEDS: AZTREONAM 1 GM in DEXTROSE 5%-WATER 50 ML IV SCH (06:30)
[2020-02-09] MEDS: GABAPENTIN 100 MG CAPSULE PO SCH ×2 (06:30→13:16)
[2020-02-09] MEDS: PANTOPRAZOLE SODIUM 20 MG TABLET.DR PO SCH (06:30)
[2020-02-09 07:14] LABS: ALBUMIN 3.8 g/dL (3.5-5.0); ALKALINE PHOSPHATASE 80 U/L (38-126); ASPARTATE AMINO TRANSFERASE 13 U/L (17-59); BILIRUBIN,TOTAL 0.3 mg/dL (0.2-1.3); BLOOD UREA NITROGEN 37 mg/dL (7-20); CALCIUM 8.8 mg/dL (8.4-10.2); CHLORIDE 100 mmol/L (98-107); GLUCOSE 195 mg/dL (75-110); POTASSIUM 4.6 mmol/L (3.6-5.0); TOTAL PROTEIN 6.5 g/dL (6.3-8.2)
[2020-02-09 07:19] LABS: ANION GAP 6 (5-19); CARBON DIOXIDE 30 mmol/L (22-30)
[2020-02-09] MEDS: BUDESONIDE NEB 0.5 MG/2 ML AMPUL NEB SCH (07:47)
[2020-02-09] MEDS: ALBUTEROL SULFATE 0.083% NEB 2.5 MG/3 ML AMPUL NEB PRN (07:48)
[2020-02-09] MEDS: INSULIN LISPRO 100 UNIT/ML 3 ML VIAL SUBCUT SCH ×3 (08:04→16:43)
[2020-02-09] MEDS: INSULIN GLARGINE,HUM.REC.ANLOG 1,000 UNIT/10 ML VIAL SUBCUT SCH (09:16)
[2020-02-09] MEDS: PREDNISONE 20 MG TABLET PO SCH (09:16)
[2020-02-09] MEDS: TAMSULOSIN HCL 0.4 MG CAP.SR.24H PO SCH (09:16)
[2020-02-09] MEDS: DILTIAZEM HCL 120 MG CAP.SR.24H PO SCH (09:16)
[2020-02-09] MEDS: FUROSEMIDE 20 MG TABLET PO SCH (09:16)
[2020-02-09] MEDS: FLUTICASONE NASAL SPRAY 50 MCG/SPRY 120 SPRAY/16 GM NASL SCH (09:17)
--- NOTE | 2020-02-09 09:49 | PDOC PROGRESS REPORT ---
Subjective Progress Note for:: 02/09/20 Subjective:: Patient is currently doing well Denied any fever no chills Patient's denied any chest pain no short of breat Patient's wants to go home Reason For Visit: PNEUMONIA,ACUTE COPD EXACERBATION Physical Exam Vital Signs: Temp Pulse Resp BP Pulse Ox 97.8 F 91 18 117/61 100 02/09/20 04:40 02/09/20 07:58 02/09/20 07:58 02/09/20 07:58 02/09/20 07:58 Intake & Output 02/08/20 02/09/20 02/10/20 06:59 06:59 06:59 Intake Total 1976 1557 Output Total 2200 2575 Balance -224 -1018 Weight 94.1 kg 94.9 kg General appearance: PRESENT: no acute distress, well-developed, well-nourished Head exam: PRESENT: atraumatic, normocephalic Eye exam: PRESENT: conjunctiva pink, EOMI, PERRLA. ABSENT: scleral icterus Ear exam: PRESENT: normal external ear exam Mouth exam: PRESENT: moist, tongue midline Neck exam: PRESENT: full ROM. ABSENT: carotid bruit, JVD, lymphadenopathy, thyromegaly Respiratory exam: PRESENT: clear to auscultation allyson Cardiovascular exam: PRESENT: RRR. ABSENT: diastolic murmur, rubs, systolic murmur Pulses: PRESENT: normal dorsalis pedis pul, +2 pedal pulses bilateral Vascular exam: PRESENT: normal capillary refill GI/Abdominal exam: PRESENT: normal bowel sounds, soft. ABSENT: distended, guarding, mass, organolmegaly, rebound, tenderness Rectal exam: PRESENT: deferred Musculoskeletal exam: PRESENT: ambulatory Neurological exam: PRESENT: alert, awake, oriented to person, oriented to place, oriented to time, oriented to situation, CN II-XII grossly intact. ABSENT: motor sensory deficit Psychiatric exam: PRESENT: appropriate affect, normal mood. ABSENT: homicidal ideation, suicidal ideation Skin exam: PRESENT: dry, intact, warm. ABSENT: cyanosis, rash Results Laboratory Results: 02/09/20 04:32 02/09/20 06:46 02/09/20 02/09/20 02/09/20 04:32 04:32 06:46 WBC 12.0 H RBC 4.31 L Hgb 13.1 L Hct 38.8 MCV 90 MCH 30.3 MCHC 33.6 RDW 14.9 H Plt Count 166 Seg Neutrophils % 87.6 H Sodium Cancelled 135.9 L Potassium Cancelled 4.6 Chloride Cancelled 100 Carbon Dioxide Cancelled 30 Anion Gap Cancelled 6 BUN Cancelled 37 H Creatinine Cancelled 0.93 Est GFR ( Amer) Cancelled > 60 Est GFR (Non-Af Amer) Cancelled Glucose Cancelled 195 H Calcium Cancelled 8.8 Total Bilirubin Cancelled 0.3 AST Cancelled 13 L Alkaline Phosphatase Cancelled 80 Total Protein Cancelled 6.5 Albumin Cancelled 3.8 02/06/20 16:35 Blood Blood Culture (PCR) - Final Staphylococcus Species 02/06/20 16:35 Blood Blood Culture - Final Staphylococcus Epidermidis 02/06/20 16:50 Blood Blood Culture (PCR) - Final Staphylococcus Species 02/06/20 16:50 Blood Blood Culture - Final Staphylococcus Epidermidis 02/07/20 02/07/20 04:56 04:56 Creatine Kinase 58 CK-MB (CK-2) 3.28 Troponin I < 0.012 Impressions: Chest X-Ray 02/06/20 14:00 IMPRESSION: Bibasilar airspace opacities, may be secondary to atelectasis or pneumonia. Assessment & Plan - Diagnosis (1) Acute and chronic respiratory failure with hypercapnia Is this a current diagnosis for this admission?: Yes (2) COPD exacerbation Is this a current diagnosis for this admission?: Yes (3) Pneumonia Qualifiers: Pneumonia type: due to unspecified organism Laterality: bilateral Lung location: unspecified part of lung Qualified Code(s): J18.9 - Pneumonia, unspecified organism Is this a current diagnosis for this admission?: Yes (4) Diabetes mellitus type 2 in obese Is this a current diagnosis for this admission?: Yes (5) Hyperlipidemia Qualifiers: Hyperlipidemia type: unspecified Is this a current diagnosis for this admission?: Yes (6) Hypertension Qualifiers: Hypertension type: essential hypertension Is this a current diagnosis for this admission?: Yes (7) Sleep apnea syndrome Qualifiers: Sleep apnea type: unspecified type Is this a current diagnosis for this admission?: Yes (8) Positive blood culture Is this a current diagnosis for this admission?: Yes Plan: We will start the patient on doxycycline we will repeat the blood culture - Time Time Spent with patient: 15-24 minutes Level of Care: IMCU Medications reviewed and adjusted accordingly: Yes Anticipated discharge: Home with Homehealth Within: Other - Plan Summary Plan Summary: Discussed with the patient about the all the test reports will repeat the blood culture and start the patient on her doxycycline
[2020-02-09] MEDS ORDERED: DOXYCYCLINE HYCLATE 100 MG TABLET PO SCH (11:00)
--- NOTE | 2020-02-09 13:33 | RADIOLOGY REPORT (SQ) ---
EXAM DESCRIPTION: CHEST 2 VIEWS IMAGES COMPLETED DATE/TIME: 02/09/2020 1:24 pm REASON FOR STUDY: pnemonia COMPARISON: 02/06/2020 NUMBER OF VIEWS: Two view TECHNIQUE: Frontal and lateral radiographic images of the chest acquired. LIMITATIONS: None. FINDINGS: LUNGS AND PLEURA: Stable appearance. MEDIASTINUM AND HILAR STRUCTURES: Stable heart size and mediastinal structures. HEART AND VASCULAR STRUCTURES: Stable appearance. BONES: No acute findings. HARDWARE: None in the chest. OTHER: No other significant finding. IMPRESSION: STABLE APPEARANCE OF THE CHEST. TECHNICAL DOCUMENTATION: JOB ID: [id number] 2010 [employer]- All Rights Reserved Reading location - IP/workstation name: [email or web address]
--- NOTE | 2020-02-09 15:29 | PDOC DISCHARGE SUMMARY ---
Impression - Admit/DC Date/PCP Admission Date/Primary Care Provider: 02/06/20 17:35 ARTEMIO KAMINSKI MD Discharge Date: 02/09/20 - Discharge Diagnosis (1) Acute and chronic respiratory failure with hypercapnia Is this a current diagnosis for this admission?: Yes (2) COPD exacerbation Is this a current diagnosis for this admission?: Yes (3) Pneumonia Is this a current diagnosis for this admission?: Yes (4) Diabetes mellitus type 2 in obese Is this a current diagnosis for this admission?: Yes (5) Hyperlipidemia Is this a current diagnosis for this admission?: Yes (6) Hypertension Is this a current diagnosis for this admission?: Yes (7) Sleep apnea syndrome Is this a current diagnosis for this admission?: Yes (8) Positive blood culture Is this a current diagnosis for this admission?: Yes - Additional Information Discharge Diet: Diabetic Discharge Activity: Activity As Tolerated Referrals: ARTEMIO KAMINSKI MD [Primary Care Provider] - Follow up as needed (f/u with dr mccloud ) Prescriptions: Prednisone [Deltasone 20 mg Tablet] 20 mg PO DAILY #5 tablet Doxycycline Hyclate [Vibramycin 100 mg Tablet] 100 mg PO Q12 #20 tablet Home Medications: Atorvastatin Calcium [Lipitor 40 mg Tablet] 40 mg PO QHS 06/25/19 Diltiazem HCl [Diltiazem 24Hr ER] 120 mg PO DAILY 06/25/19 Empagliflozin [Jardiance] 10 mg PO DAILY 06/25/19 Furosemide [Lasix 20 mg Tablet] 10 mg PO DAILY 06/25/19 Gabapentin [Neurontin 100 mg Capsule] 100 mg PO Q8 06/25/19 Insulin Aspart [Novolog Flexpen] 25 unit SQ MEALS 06/25/19 Ipratropium/Albuterol Sulfate [Combivent Respimat 4 gm Mdi] 1 puff IH QIDP PRN 06/25/19 Lisinopril [Zestril] 2.5 mg PO DAILY 06/25/19 Tamsulosin HCl [Flomax] 0.4 mg PO DAILY 06/25/19 Fluticasone/Umeclidin/Vilanter [Trelegy 100-62.5-25 Mcg Ellipta 14 Dose/Dpi] 1 puff IH DAILY 11/25/19 Budesonide [Pulmicort Neb 0.5 mg/2 ml Ampul] 0.5 mg NEB RTQ12 02/07/20 Fluticasone Propionate [Flonase Nasal [place] 50 Mcg/[place] 16 gm] 1 spray NASL Q12 02/07/20 Doxycycline Hyclate [Vibramycin 100 mg Tablet] 100 mg PO Q12 #20 tablet 02/09/20 Prednisone [Deltasone 20 mg Tablet] 20 mg PO DAILY #5 tablet 02/09/20 History of Present Illiness History of Present Illness: ADÁN CHEUNG is a 54 year old male This is a 54-year-old male with a significant history of the COPD oxygen dependence currently using the trilogy at night with a chronic respiratory failure multiple hospital admissions due to noncompliance to using the trilogyCame to the emergency department with increasing some cough congestion and shortness of the breath since last several days patient's call the EMS patient was put on CPAP and brought to the ER Patient's initial work-up including the chest x-ray shows a questionable pneumonia and COPD acute exacerbation respiratory failure and decided to admit in the hospitals When I saw the patient in the floor patient is alert awake oriented eating the breakfast without any distressed on a nasal cannula Patients did not go anywhere since last hospital admissions to outside did not have any contact with any COVID Patient's denied any chest pain No fever Received IV antibiotics and a nebulizer treatment and IV steroids Hospital Course Hospital Course: This is a 54-year-old male's with a significant history of the COPD chronic respiratory failure type 2 diabetes chronic diastolic heart failure and multiple other hospital admission due to the noncompliance came to the emergency department with the complaining of shortness of the breath as usual respiratory failure and COPD and pneumonia And admitting in the hospital start on IV steroids and nebulizer treatments and IV antibiotics And also seen by Dr. Paz pulmonary Patient is responds very well discontinues the IV Solu-Medrol put on the p.o. steroids and patient is also is put on a p.o. doxycycline which is sensitive to the patient's positive blood culture Is denied any fever no chills no other symptoms repeat the blood culture again Chest x-ray is all stable Pretty much all p.o. medications and really wants to go home as usual did not want to stay in the hospital at this point patient is discharged to the home with the home health continues the trilogy machine at home's and continues the nebulizer oxygen at home's Patient having no suspicious for any COVID patient have her test done last month also negative and patients did not go anywhere Discussed with the patient's to early departure from the hospital patient understand very well but patient's [facility] oxygen's I have the patient's continues to be improved Physical Exam Vital Signs: Temp Pulse Resp BP Pulse Ox 97.6 F 58 L 18 128/69 H 98 02/09/20 12:33 02/09/20 14:00 02/09/20 12:33 02/09/20 12:33 02/09/20 12:33 Intake & Output 02/08/20 02/09/20 02/10/20 06:59 06:59 06:59 Intake Total 1976 1557 Output Total 2200 2575 Balance -224 -1018 Weight 94.1 kg 94.9 kg General appearance: PRESENT: no acute distress, well-developed, well-nourished Head exam: PRESENT: atraumatic, normocephalic Eye exam: PRESENT: conjunctiva pink, EOMI, PERRLA. ABSENT: scleral icterus Ear exam: PRESENT: normal external ear exam Mouth exam: PRESENT: moist, tongue midline Neck exam: ABSENT: carotid bruit, JVD, lymphadenopathy, thyromegaly Respiratory exam: PRESENT: clear to auscultation allyson. ABSENT: rales, rhonchi, wheezes Cardiovascular exam: PRESENT: RRR. ABSENT: diastolic murmur, rubs, systolic murmur Pulses: PRESENT: normal dorsalis pedis pul Vascular exam: PRESENT: normal capillary refill GI/Abdominal exam: PRESENT: normal bowel sounds, soft. ABSENT: distended, guarding, mass, organolmegaly, rebound, tenderness Rectal exam: PRESENT: deferred Extremities exam: PRESENT: full ROM. ABSENT: calf tenderness, clubbing, pedal edema Neurological exam: PRESENT: alert, awake, oriented to person, oriented to place, oriented to time, oriented to situation, CN II-XII grossly intact. ABSENT: motor sensory deficit Psychiatric exam: PRESENT: appropriate affect, normal mood. ABSENT: homicidal ideation, suicidal ideation Skin exam: PRESENT: dry, intact, warm. ABSENT: cyanosis, rash Results Laboratory Results: WBC 12.0 10^3/uL (4.0-10.5) H 02/09/20 04:32 RBC 4.31 10^6/uL (4.35-5.55) L 02/09/20 04:32 Hgb 13.1 g/dL (13.5-17.0) L 02/09/20 04:32 Hct 38.8 % (37.9-51.0) 02/09/20 04:32 MCV 90 fl (80-97) 02/09/20 04:32 MCH 30.3 pg (27.0-33.4) 02/09/20 04:32 MCHC 33.6 g/dL (32.0-36.0) 02/09/20 04:32 RDW 14.9 % (11.5-14.0) H 02/09/20 04:32 Plt Count 166 10^3/uL (150-450) 02/09/20 04:32 Lymph % (Auto) 8.1 % (13-45) L 02/09/20 04:32 [place] % (Auto) 4.0 % (3-13) 02/09/20 04:32 Eos % (Auto) 0.1 % (0-6) 02/09/20 04:32 Baso % (Auto) 0.2 % (0-2) 02/09/20 04:32 Absolute Neuts (auto) 10.5 10^3/uL (1.7-8.2) H 02/09/20 04:32 Absolute Lymphs (auto) 1.0 10^3/uL (0.5-4.7) 02/09/20 04:32 Absolute Monos (auto) 0.5 10^3/uL (0.1-1.4) 02/09/20 04:32 Absolute Eos (auto) 0.0 10^3/uL (0.0-0.6) 02/09/20 04:32 Absolute Basos (auto) 0.0 10^3/uL (0.0-0.2) 02/09/20 04:32 Total Counted 100 02/08/20 06:49 Seg Neutrophils % 87.6 % (42-78) H 02/09/20 04:32 Seg Neuts % (Manual) 82 % (42-78) H 02/08/20 06:49 Band Neutrophils % 1 % (3-5) L 02/08/20 06:49 Lymphocytes % (Manual) 7 % (13-45) L 02/08/20 06:49 Atypical Lymphs % 3 % (0) 02/08/20 06:49 Monocytes % (Manual) 7 % (3-13) 02/08/20 06:49 Eosinophils % (Manual) 0 % (0-6) 02/08/20 06:49 Basophils % (Manual) 0 % (0-2) 02/08/20 06:49 Abs Neuts (Manual) 9.5 10^3/uL (1.7-8.2) H 02/08/20 06:49 Abs Lymphs (Manual) 1.1 10^3/uL (0.5-4.7) 02/08/20 06:49 Abs Monocytes (Manual) 0.8 10^3/uL (0.1-1.4) 02/08/20 06:49 Absolute Eos (Manual) 0.0 10^3/uL (0.0-0.6) 02/08/20 06:49 Abs Basophils (Manual) 0.0 10^3/uL (0.0-0.2) 02/08/20 06:49 Toxic Granulation SLIGHT 02/08/20 06:49 Platelet Comment ADEQUATE 02/08/20 06:49 Polychromasia SLIGHT 02/08/20 06:49 Anisocytosis SLIGHT 02/08/20 06:49 Carbonic Acid 1.65 mmol/L (1.05-1.35) H 02/06/20 14:56 HCO3/H2CO3 Ratio 15:1 02/06/20 14:56 ABG pH 7.29 (7.35-7.45) L 02/06/20 14:56 ABG pCO2 54.7 mmHg (35-45) H 02/06/20 14:56 ABG pO2 75.4 mmHg (80-100) L 02/06/20 14:56 ABG HCO3 25.4 mmol/L (20-24) H 02/06/20 14:56 ABG Total CO2 27.1 mmol/L (23-27) H 02/06/20 14:56 ABG O2 Saturation 93.3 % (94-98) L 02/06/20 14:56 ABG Base Excess -1.9 mmol/L 02/06/20 14:56 FiO2 40% 02/06/20 14:56 Sodium 135.9 mmol/L (137-145) L 02/09/20 06:46 Potassium 4.6 mmol/L (3.6-5.0) 02/09/20 06:46 Chloride 100 mmol/L (98-107) 02/09/20 06:46 Carbon Dioxide 30 mmol/L (22-30) 02/09/20 06:46 Anion Gap 6 (5-19) 02/09/20 06:46 BUN 37 mg/dL (7-20) H 02/09/20 06:46 Creatinine 0.93 mg/dL (0.52-1.25) 02/09/20 06:46 Est GFR ( Amer) > 60 (>60) 02/09/20 06:46 Est GFR (Non-Af Amer) Cancelled 02/09/20 04:32 Est GFR (MDRD) Non-Af > 60 (>60) 02/09/20 06:46 Glucose 195 mg/dL (75-110) H 02/09/20 06:46 POC Glucose 341 mg/dL (70-110) H 02/09/20 12:35 Hemoglobin A1c % 7.8 % (4.7-6.0) H 02/07/20 04:56 Calcium 8.8 mg/dL (8.4-10.2) 02/09/20 06:46 Total Bilirubin 0.3 mg/dL (0.2-1.3) 02/09/20 06:46 Direct Bilirubin 0.0 mg/dL (0.0-0.4) 02/09/20 06:46 Neonat Total Bilirubin Not Reportable 02/09/20 06:46 Neonat Direct Bilirubin Not Reportable 02/09/20 06:46 Neonat Indirect Bili Not Reportable 02/09/20 06:46 AST 13 U/L (17-59) L 02/09/20 06:46 ALT 10 U/L (<50) 02/09/20 06:46 Alkaline Phosphatase 80 U/L (38-126) 02/09/20 06:46 Creatine Kinase 58 U/L (55-170) 02/07/20 04:56 CK-MB (CK-2) 3.28 ng/mL (<4.55) 02/07/20 04:56 Troponin I < 0.012 ng/mL 02/07/20 04:56 Total Protein 6.5 g/dL (6.3-8.2) 02/09/20 06:46 Albumin 3.8 g/dL (3.5-5.0) 02/09/20 06:46 EGFR Cancelled 02/09/20 04:32 Urine Color YELLOW 02/07/20 07:00 Urine Appearance CLEAR 02/07/20 07:00 Urine pH 5.0 (5.0-9.0) 02/07/20 07:00 Ur Specific Williams 1.023 02/07/20 07:00 Urine Protein 30 mg/dL (NEGATIVE) H 02/07/20 07:00 Urine Glucose (UA) >=500 mg/dL (NEGATIVE) H 02/07/20 07:00 Urine Ketones TRACE mg/dL (NEGATIVE) H 02/07/20 07:00 Urine Blood NEGATIVE (NEGATIVE) 02/07/20 07:00 Urine Nitrite NEGATIVE (NEGATIVE) 02/07/20 07:00 Urine Bilirubin NEGATIVE (NEGATIVE) 02/07/20 07:00 Urine Urobilinogen NEGATIVE mg/dL (<2.0) 02/07/20 07:00 Ur Leukocyte Esterase NEGATIVE (NEGATIVE) 02/07/20 07:00 Urine WBC (Auto) 0 /HPF 02/07/20 07:00 Urine RBC (Auto) 0 /HPF 02/07/20 07:00 Urine Mucus (Auto) RARE /LPF 02/07/20 07:00 Urine Ascorbic Acid NEGATIVE (NEGATIVE) 02/07/20 07:00 02/07/20 04:56 CK-MB (CK-2) 3.28 Troponin I < 0.012 Impressions: Chest X-Ray 02/06/20 14:00 IMPRESSION: Bibasilar airspace opacities, may be secondary to atelectasis or pneumonia. Chest X-Ray 02/09/20 00:00 IMPRESSION: STABLE APPEARANCE OF THE CHEST. Plan Time Spent: Greater than 30 Minutes - Follow-up with the Dr. Stewart follow in office in 2 weeks Stroke Is this a Stroke Patient?: No Acute Heart Failure - Is this a Heart Failure Patient?: No
[2020-02-09 15:30] VITALS: BP 136/72
[2020-02-10] MEDS ORDERED: PREDNISONE 20 MG TABLET PO SCH (10:00)
== END 2020-02-09 18:13 | disposition home health service (06) | DRG 193 ==
LOC: ER 13:51 → EH 17:35 → 5 19:13
PROVIDERS: ADMIT Family Medicine; ATTEND Family Medicine
PROC: 5A09457 Assistance with Respiratory Ventilation, 24-96 Consecutive Hours, Continuous Positive Airway Pressure (ICD-10-PCS; principal; 2020-02-06)
DX: J18.9 Pneumonia, unspecified organism (principal); J96.22 Acute and chronic respiratory failure with hypercapnia; J44.0 Chronic obstructive pulmonary disease with (acute) lower respiratory infection; J44.1 Chronic obstructive pulmonary disease with (acute) exacerbation; I50.32 Chronic diastolic (congestive) heart failure; E11.9 Type 2 diabetes mellitus without complications; F32.9 Major depressive disorder, single episode, unspecified; F17.210 Nicotine dependence, cigarettes, uncomplicated; I11.0 Hypertensive heart disease with heart failure; R13.10 Dysphagia, unspecified; G47.30 Sleep apnea, unspecified; E78.5 Hyperlipidemia, unspecified; E66.9 Obesity, unspecified; Z99.81 Dependence on supplemental oxygen; I25.2 Old myocardial infarction; Z90.49 Acquired absence of other specified parts of digestive tract; Z82.49 Family history of ischemic heart disease and other diseases of the circulatory system; Z82.5 Family history of asthma and other chronic lower respiratory diseases; Z79.899 Other long term (current) drug therapy; Z88.0 Allergy status to penicillin; Z79.4 Long term (current) use of insulin; Z91.041 Radiographic dye allergy status; Z91.018 Allergy to other foods; Z68.35 Body mass index [BMI] 35.0-35.9, adult
CPT/HCPCS: 36415; 71045; 71046; 80053; 81001; 82550; 82553; 82803; 82962; 83036; 84484; 85025; 87040; 87077; 87150; 87186; 93005; 93010; 94640; 94660; 96365; 96368; 96375; 99291; J0456; J0696; J1650; J1815; J1956; J2930; J3490; J7060; J7512